=== PATIENT | male | born 1965 | race Caucasian/White ===

== ENCOUNTER 2018-01-10 19:05 | Inpatient (IN) | payer MEDICARE, MEDICAID ==
[2018-01-10] MEDS: ONDANSETRON 4MG/2ML VIAL (J2405) IV (20:10)
[2018-01-10] MEDS: MORPHINE 4 MG/ML 1ML VIAL (J2270) IV (20:10)
[2018-01-10] MEDS: NS 1,000 ML IV ×2 (20:10→22:36)
[2018-01-10 21:00] LABS: BASO # 0.1 10^3/uL (0.0-0.2); BASO % 0.3 % (0.0-1.0); EOS # 0.1 10^3/uL (0.0-0.50); EOS % 0.5 % (0.0-3.0); HEMATOCRIT 28.8 % (42.0-52.0); HEMOGLOBIN 9.3 g/dl (14.0-18.0); IMMATURE GRANULOCYTE % 4.4 % (0-3.0); LYMPH # 1.2 10^3/uL (1.5-4.5); LYMPH % 5.7 % (24.0-44.0); MEAN CORPUSCULAR HGB CONC 32.3 g/dl (32.0-36.5); MEAN CORPUSCULAR VOLUME 86.7 fl (80.0-96.0); MONO # 1.4 10^3/uL (0.0-0.8); MONO % 6.7 % (0.0-5.0); NEUTROPHILS # 17.5 10^3/uL (1.8-7.7); NEUTROPHILS % 82.4 % (36.0-66.0); PLATELET COUNT, AUTOMATED 518 10^3/uL (150-450); RED BLOOD COUNT 3.32 10^6/uL (4.30-6.10); RED CELL DISTRIBUTION WIDTH 13.6 % (11.5-14.5); WHITE BLOOD COUNT 21.2 10^3/uL (4.0-10.0)
[2018-01-10 21:23] LABS: LACTIC ACID SEPSIS PROTOCOL 1.9 MMOL/L (0.4-2.0)
[2018-01-10 21:24] LABS: ALBUMIN/GLOBULIN RATIO 0.34 (1.00-1.93); ALKALINE PHOSPHATASE 132 U/L (45-117); ALT/SGPT 12 U/L (12-78); ANION GAP 12 MEQ/L (8-16); AST/SGOT 12 U/L (7-37); BILIRUBIN,DIRECT 0.4 MG/DL (0.0-0.2); BILIRUBIN,TOTAL 0.8 MG/DL (0.2-1.0); BLOOD UREA NITROGEN 47 MG/DL (7-18); CARBON DIOXIDE LEVEL 20 MEQ/L (21-32); CHLORIDE LEVEL 106 MEQ/L (98-107); GLOMERULAR FILTRATION RATE 24.6 (>56); GLUCOSE, FASTING 339 MG/DL (70-100); SODIUM LEVEL 138 MEQ/L (136-145); TOTAL PROTEIN 7.8 GM/DL (6.4-8.2)
[2018-01-10 21:37] LABS: POTASSIUM SERUM 5.2 MEQ/L (3.5-5.1)
[2018-01-10] MEDS: CEFTAROLINE FOSAMIL 300 MG in D5W 50 ML IV (22:37)
[2018-01-10] MEDS ORDERED: GLUCAGON FOR INJ 1 MG VIAL (J1610) SC (22:45)
[2018-01-10] MEDS ORDERED: GLUCOSE 4 GM CHEW TABLET PO (22:45)
[2018-01-10] MEDS ORDERED: ALBUTEROL SULFATE 2.5 MG/0.5 ML INH NEB SOLN NEB (23:15)
[2018-01-10] MEDS ORDERED: EUCERIN 120GM CREAM TOP (23:15)
[2018-01-11 01:26] LABS: BEDSIDE GLUCOSE 240 MG/DL (70-105)
[2018-01-11] MEDS: HumaLOG INSULIN (NovoLOG) PER UNIT SC ×5 (01:33→21:00)
[2018-01-11] MEDS: HEPARIN SOD (PORCINE) 5000 UNITS/ML VIAL SC ×4 (02:17→21:55)
[2018-01-11] MEDS: LEVEMIR (INSULIN DETEMIR) 1 UNITS/0.01ML SC ×3 (02:17→21:54)
[2018-01-11] MEDS: SOD POLYSTYRENE SULFONATE SUSP 15 GM/60 ML UD PO ×2 (03:21→20:12)
[2018-01-11] MEDS: FERROUS SULFATE 325MG TAB PO ×3 (03:49→21:54)
[2018-01-11] MEDS: cloNIDine 0.1 MG TAB PO ×4 (03:50→21:55)
[2018-01-11] MEDS: ADVAIR HFA 230/21MCG INHALER INH ×3 (03:50→21:22)
[2018-01-11] MEDS: PIPERACILLIN/TAZOBACTAM SOD 3.375 GM in APPROPRIATE DILUENT 1 EA IV ×3 (04:44→20:12)
[2018-01-11] MEDS: VANCOMYCIN HCL 1,000 MG, VIAL MATE ADAPTER 1 EACH in D5W 250 ML IV ×3 (05:29→18:20)
[2018-01-11 06:37] LABS: BASO % 0.3 % (0.0-1.0); EOS # 0.2 10^3/uL (0.0-0.50); EOS % 1.6 % (0.0-3.0); HEMATOCRIT 24.3 % (42.0-52.0); HEMOGLOBIN 7.8 g/dl (14.0-18.0); IMMATURE GRANULOCYTE % 4.1 % (0-3.0); LYMPH # 2.2 10^3/uL (1.5-4.5); LYMPH % 18.4 % (24.0-44.0); MEAN CORPUSCULAR HEMOGLOBIN 27.5 pg (27.0-33.0); MEAN CORPUSCULAR HGB CONC 32.1 g/dl (32.0-36.5); MEAN CORPUSCULAR VOLUME 85.6 fl (80.0-96.0); MONO # 1.1 10^3/uL (0.0-0.8); MONO % 8.9 % (0.0-5.0); NEUTROPHILS # 7.9 10^3/uL (1.8-7.7); NEUTROPHILS % 66.7 % (36.0-66.0); PLATELET COUNT, AUTOMATED 431 10^3/uL (150-450); RED BLOOD COUNT 2.84 10^6/uL (4.30-6.10); RED CELL DISTRIBUTION WIDTH 13.9 % (11.5-14.5); WHITE BLOOD COUNT 11.9 10^3/uL (4.0-10.0)
[2018-01-11 07:00] LABS: ALKALINE PHOSPHATASE 95 U/L (45-117); ALT/SGPT 11 U/L (12-78); ANION GAP 9 MEQ/L (8-16); AST/SGOT 6 U/L (7-37); BILIRUBIN,TOTAL 0.5 MG/DL (0.2-1.0); BLOOD UREA NITROGEN 50 MG/DL (7-18); CALCIUM LEVEL 7.7 MG/DL (8.5-10.1); CARBON DIOXIDE LEVEL 21 MEQ/L (21-32); CHLORIDE LEVEL 109 MEQ/L (98-107); GLOMERULAR FILTRATION RATE 19.8 (>56); GLUCOSE, FASTING 165 MG/DL (70-100); POTASSIUM SERUM 4.8 MEQ/L (3.5-5.1); SODIUM LEVEL 139 MEQ/L (136-145)
[2018-01-11 07:01] LABS: ALBUMIN 1.6 GM/DL (3.2-5.2); ALBUMIN/GLOBULIN RATIO 0.29 (1.00-1.93); TOTAL PROTEIN 7.2 GM/DL (6.4-8.2)
[2018-01-11] MEDS: ASCORBIC ACID 500 MG TAB PO (10:26)
[2018-01-11] MEDS: FOLIC ACID 1 MG TAB PO (10:26)
[2018-01-11] MEDS: ONDANSETRON 4MG/2ML VIAL (J2405) IV (12:58)
[2018-01-11] MEDS: MORPHINE 4 MG/ML 1ML VIAL (J2270) IV ×2 (12:58→22:07)
[2018-01-11] MEDS: NS 1,000 ML IV ×2 (14:44→21:56)
[2018-01-11 16:30] LABS: BEDSIDE GLUCOSE 124 MG/DL (70-105)
[2018-01-11] MEDS: DEXTROSE 50% 50 ML SYRINGE IV (17:18)
[2018-01-11 18:44] LABS: ANION GAP 9 MEQ/L (8-16); BLOOD UREA NITROGEN 52 MG/DL (7-18); CALCIUM LEVEL 7.7 MG/DL (8.5-10.1); CARBON DIOXIDE LEVEL 23 MEQ/L (21-32); CHLORIDE LEVEL 111 MEQ/L (98-107); CREATININE FOR GFR 3.83 MG/DL (0.70-1.30); GLOMERULAR FILTRATION RATE 17.9 (>56); GLUCOSE, FASTING 86 MG/DL (70-100); SODIUM LEVEL 143 MEQ/L (136-145)
[2018-01-11 18:46] LABS: POTASSIUM SERUM 5.2 MEQ/L (3.5-5.1)
[2018-01-11 20:22] LABS: BEDSIDE GLUCOSE 84 MG/DL (70-105)
[2018-01-11 20:22] LABS: BEDSIDE GLUCOSE 69 MG/DL (70-105)
[2018-01-11] MEDS: D5W/0.45% SODIUM CHLORIDE 1,000 ML IV (20:32)
[2018-01-11 21:08] LABS: HEMOGLOBIN 8.3 g/dl (14.0-18.0); MEAN CORPUSCULAR HEMOGLOBIN 27.1 pg (27.0-33.0); MEAN CORPUSCULAR HGB CONC 30.7 g/dl (32.0-36.5); MEAN CORPUSCULAR VOLUME 88.2 fl (80.0-96.0); PLATELET COUNT, AUTOMATED 439 10^3/uL (150-450); RED BLOOD COUNT 3.06 10^6/uL (4.30-6.10); RED CELL DISTRIBUTION WIDTH 14.2 % (11.5-14.5); WHITE BLOOD COUNT 8.8 10^3/uL (4.0-10.0)
[2018-01-11 21:29] LABS: LACTIC ACID SEPSIS PROTOCOL 0.9 MMOL/L (0.4-2.0)
[2018-01-11 21:30] LABS: CPK CREATINE PHOSPHOKINASE 18 U/L (39-308); MB/CK RELATIVE INDEX 5.55 (< OR =4); TROPONIN I < 0.02 NG/ML (< 0.10)
[2018-01-11 22:04] LABS: BEDSIDE GLUCOSE 100 MG/DL (70-105)
[2018-01-12] MEDS: MORPHINE 4 MG/ML 1ML VIAL (J2270) IV ×5 (00:25→21:09)
[2018-01-12] MEDS: PIPERACILLIN/TAZOBACTAM SOD 3.375 GM in APPROPRIATE DILUENT 1 EA IV ×2 (03:00→12:00)
[2018-01-12 03:29] LABS: GLUCOSE, FASTING 103 MG/DL (70-100)
[2018-01-12] MEDS: cloNIDine 0.1 MG TAB PO ×3 (05:34→20:58)
[2018-01-12] MEDS: VANCOMYCIN HCL 1,000 MG, VIAL MATE ADAPTER 1 EACH in D5W 250 ML IV (05:34)
[2018-01-12 06:19] LABS: BASO % 0.2 % (0.0-1.0); EOS # 0.3 10^3/uL (0.0-0.50); EOS % 3.5 % (0.0-3.0); HEMATOCRIT 25.5 % (42.0-52.0); IMMATURE GRANULOCYTE % 3.7 % (0-3.0); LYMPH # 1.2 10^3/uL (1.5-4.5); LYMPH % 13.9 % (24.0-44.0); MEAN CORPUSCULAR HEMOGLOBIN 27.4 pg (27.0-33.0); MEAN CORPUSCULAR HGB CONC 31.4 g/dl (32.0-36.5); MEAN CORPUSCULAR VOLUME 87.3 fl (80.0-96.0); MONO # 0.7 10^3/uL (0.0-0.8); MONO % 7.8 % (0.0-5.0); NEUTROPHILS # 6.1 10^3/uL (1.8-7.7); NEUTROPHILS % 70.9 % (36.0-66.0); PLATELET COUNT, AUTOMATED 413 10^3/uL (150-450); RED BLOOD COUNT 2.92 10^6/uL (4.30-6.10); RED CELL DISTRIBUTION WIDTH 14.2 % (11.5-14.5); WHITE BLOOD COUNT 8.6 10^3/uL (4.0-10.0)
[2018-01-12 06:47] LABS: ALBUMIN 1.7 GM/DL (3.2-5.2); ALBUMIN/GLOBULIN RATIO 0.35 (1.00-1.93); ALKALINE PHOSPHATASE 92 U/L (45-117); ALT/SGPT 9 U/L (12-78); ANION GAP 9 MEQ/L (8-16); AST/SGOT 8 U/L (7-37); BILIRUBIN,TOTAL 0.4 MG/DL (0.2-1.0); BLOOD UREA NITROGEN 49 MG/DL (7-18); CALCIUM LEVEL 7.5 MG/DL (8.5-10.1); CARBON DIOXIDE LEVEL 21 MEQ/L (21-32); CHLORIDE LEVEL 113 MEQ/L (98-107); CREATININE FOR GFR 4.08 MG/DL (0.70-1.30); GLOMERULAR FILTRATION RATE 16.6 (>56); GLUCOSE, FASTING 75 MG/DL (70-100); MAGNESIUM LEVEL 1.9 MG/DL (1.8-2.4); POTASSIUM SERUM 4.4 MEQ/L (3.5-5.1); SODIUM LEVEL 143 MEQ/L (136-145); TOTAL PROTEIN 6.6 GM/DL (6.4-8.2)
[2018-01-12] MEDS: ADVAIR HFA 230/21MCG INHALER INH ×2 (07:21→21:24)
[2018-01-12] MEDS: HumaLOG INSULIN (NovoLOG) PER UNIT SC ×4 (07:30→20:57)
[2018-01-12] MEDS: NS 1,000 ML IV (08:13)
[2018-01-12] MEDS: ASCORBIC ACID 500 MG TAB PO (09:00)
[2018-01-12] MEDS: FOLIC ACID 1 MG TAB PO (09:00)
[2018-01-12] MEDS: FERROUS SULFATE 325MG TAB PO ×2 (09:00→21:07)
[2018-01-12] MEDS: LEVEMIR (INSULIN DETEMIR) 1 UNITS/0.01ML SC ×2 (11:12→21:08)
[2018-01-12] MEDS ORDERED: PROPOFOL 200 MG/20 ML VIAL As Ordered ×2 (11:47→12:26)
[2018-01-12] MEDS ORDERED: MIDAZOLAM INJ 2 MG/2 ML VIAL (J2250) As Ordered (11:47)
[2018-01-12] MEDS ORDERED: LIDOCAINE 2% INJ 100 MG/5 ML SDV (FOR ANES.) As Ordered (11:47)
[2018-01-12] MEDS ORDERED: PHENYLephrine HCL 500 MCG/5 ML (100MCG/ML) SYRINGE (J2370) As Ordered ×2 (11:47→12:22)
[2018-01-12] MEDS ORDERED: fentaNYL 100 MCG/2 ML INJECTION (J3010) As Ordered (11:47)
[2018-01-12] MEDS: LR 1,000 ML IV (14:00)
[2018-01-12] MEDS ORDERED: fentaNYL 100 MCG/2 ML INJECTION (J3010) IV (14:00)
[2018-01-12] MEDS ORDERED: ONDANSETRON 4MG/2ML VIAL (J2405) IV (14:00)
[2018-01-12] MEDS ORDERED: PERCOCET 5MG/325MG TAB PO (14:00)
[2018-01-12] MEDS ORDERED: HYDROmorphone HCL 1 MG/ML SYRINGE (J1170) IV (14:00)
[2018-01-12 14:16] LABS: BEDSIDE GLUCOSE 87 MG/DL (70-105)
[2018-01-12] MEDS: ONDANSETRON 4MG/2ML VIAL (J2405) IV (15:20)
[2018-01-12 17:58] LABS: VANCOMYCIN LEVEL TROUGH 37.8 UG/ML (10.0-20.0)
[2018-01-12] MEDS ORDERED: VANCOMYCIN INTERMITTENT/PULSE DOSING BY CLINICAL PHARMACIST PER DOSING PROTOCOL XX (18:15)
[2018-01-12 18:42] LABS: IMMEDIATE SPIN CROSSMATCH 1 2
[2018-01-12] MEDS: PERCOCET 5MG/325MG TAB PO (18:42)
[2018-01-12] MEDS ORDERED: PIPERACILLIN/TAZOBACTAM SOD 2.25 GM in APPROPRIATE DILUENT 1 EA IV (20:00)
[2018-01-12] MEDS: DOCUSATE SODIUM 100 MG CAP PO (21:07)
[2018-01-12 21:14] LABS: BEDSIDE GLUCOSE 124 MG/DL (70-105)
[2018-01-12 21:14] LABS: BEDSIDE GLUCOSE 174 MG/DL (70-105)
[2018-01-12 21:14] LABS: BEDSIDE GLUCOSE 148 MG/DL (70-105)
[2018-01-12 21:15] LABS: BEDSIDE GLUCOSE 175 MG/DL (70-105)
[2018-01-13] MEDS: PIPERACILLIN/TAZOBACTAM SOD 2.25 GM in APPROPRIATE DILUENT 1 EA IV ×3 (04:00→20:06)
[2018-01-13] MEDS: MORPHINE 4 MG/ML 1ML VIAL (J2270) IV (04:11)
[2018-01-13] MEDS: cloNIDine 0.1 MG TAB PO ×3 (05:38→21:21)
[2018-01-13 06:16] LABS: BASO % 0.2 % (0.0-1.0); EOS # 0.3 10^3/uL (0.0-0.50); EOS % 2.9 % (0.0-3.0); HEMATOCRIT 25.2 % (42.0-52.0); IMMATURE GRANULOCYTE % 3.8 % (0-3.0); LYMPH # 1.6 10^3/uL (1.5-4.5); LYMPH % 16.3 % (24.0-44.0); MEAN CORPUSCULAR HEMOGLOBIN 27.6 pg (27.0-33.0); MEAN CORPUSCULAR HGB CONC 31.7 g/dl (32.0-36.5); MEAN CORPUSCULAR VOLUME 86.9 fl (80.0-96.0); MONO # 0.9 10^3/uL (0.0-0.8); MONO % 9.1 % (0.0-5.0); NEUTROPHILS # 6.5 10^3/uL (1.8-7.7); NEUTROPHILS % 67.7 % (36.0-66.0); PLATELET COUNT, AUTOMATED 370 10^3/uL (150-450); RED CELL DISTRIBUTION WIDTH 13.9 % (11.5-14.5); WHITE BLOOD COUNT 9.7 10^3/uL (4.0-10.0)
[2018-01-13 06:44] LABS: ALBUMIN 1.7 GM/DL (3.2-5.2); ALBUMIN/GLOBULIN RATIO 0.34 (1.00-1.93); ALKALINE PHOSPHATASE 78 U/L (45-117); ALT/SGPT 9 U/L (12-78); ANION GAP 9 MEQ/L (8-16); AST/SGOT 5 U/L (7-37); BILIRUBIN,TOTAL 0.7 MG/DL (0.2-1.0); BLOOD UREA NITROGEN 44 MG/DL (7-18); CALCIUM LEVEL 7.8 MG/DL (8.5-10.1); CARBON DIOXIDE LEVEL 22 MEQ/L (21-32); CHLORIDE LEVEL 115 MEQ/L (98-107); CREATININE FOR GFR 4.08 MG/DL (0.70-1.30); GLOMERULAR FILTRATION RATE 16.6 (>56); GLUCOSE, FASTING 165 MG/DL (70-100); MAGNESIUM LEVEL 1.9 MG/DL (1.8-2.4); POTASSIUM SERUM 4.9 MEQ/L (3.5-5.1); SODIUM LEVEL 146 MEQ/L (136-145); TOTAL PROTEIN 6.7 GM/DL (6.4-8.2)
[2018-01-13] MEDS: ADVAIR HFA 230/21MCG INHALER INH ×2 (07:36→22:00)
[2018-01-13] MEDS: LEVEMIR (INSULIN DETEMIR) 1 UNITS/0.01ML SC ×2 (08:28→20:06)
[2018-01-13] MEDS: HumaLOG INSULIN (NovoLOG) PER UNIT SC ×4 (08:28→21:00)
[2018-01-13] MEDS: FOLIC ACID 1 MG TAB PO (08:29)
[2018-01-13] MEDS: PERCOCET 5MG/325MG TAB PO ×3 (08:29→22:15)
[2018-01-13] MEDS: FERROUS SULFATE 325MG TAB PO ×2 (08:29→20:06)
[2018-01-13] MEDS: ASCORBIC ACID 500 MG TAB PO (08:29)
[2018-01-13] MEDS: DOCUSATE SODIUM 100 MG CAP PO ×2 (08:29→20:06)
[2018-01-13] MEDS: SODIUM CHLORIDE 0.9% INJ 10 ML SYR IV ×3 (17:04→21:22)
[2018-01-13 18:53] LABS: VANCOMYCIN LEVEL TROUGH 29.1 UG/ML (10.0-20.0)
[2018-01-14] MEDS: PIPERACILLIN/TAZOBACTAM SOD 2.25 GM in APPROPRIATE DILUENT 1 EA IV ×3 (04:17→21:35)
[2018-01-14 04:29] LABS: BASO % 0.4 % (0.0-1.0); EOS # 0.2 10^3/uL (0.0-0.50); EOS % 2.6 % (0.0-3.0); HEMATOCRIT 23.5 % (42.0-52.0); HEMOGLOBIN 7.6 g/dl (14.0-18.0); IMMATURE GRANULOCYTE % 4.4 % (0-3.0); LYMPH # 1.7 10^3/uL (1.5-4.5); LYMPH % 20.3 % (24.0-44.0); MEAN CORPUSCULAR HEMOGLOBIN 28.7 pg (27.0-33.0); MEAN CORPUSCULAR HGB CONC 32.3 g/dl (32.0-36.5); MEAN CORPUSCULAR VOLUME 88.7 fl (80.0-96.0); MONO # 0.7 10^3/uL (0.0-0.8); MONO % 8.6 % (0.0-5.0); NEUTROPHILS # 5.4 10^3/uL (1.8-7.7); NEUTROPHILS % 63.7 % (36.0-66.0); PLATELET COUNT, AUTOMATED 289 10^3/uL (150-450); RED BLOOD COUNT 2.65 10^6/uL (4.30-6.10); RED CELL DISTRIBUTION WIDTH 14.2 % (11.5-14.5); WHITE BLOOD COUNT 8.5 10^3/uL (4.0-10.0)
[2018-01-14 05:04] LABS: ALBUMIN 1.8 GM/DL (3.2-5.2); ALBUMIN/GLOBULIN RATIO 0.39 (1.00-1.93); ALKALINE PHOSPHATASE 80 U/L (45-117); ALT/SGPT 8 U/L (12-78); ANION GAP 6 MEQ/L (8-16); AST/SGOT 5 U/L (7-37); BILIRUBIN,TOTAL 0.4 MG/DL (0.2-1.0); BLOOD UREA NITROGEN 43 MG/DL (7-18); CALCIUM LEVEL 7.4 MG/DL (8.5-10.1); CARBON DIOXIDE LEVEL 24 MEQ/L (21-32); CHLORIDE LEVEL 111 MEQ/L (98-107); FERRITIN 436 NG/ML (26-388); GLUCOSE, FASTING 227 MG/DL (70-100); IRON (FE) 43 UG/DL (65-175); MAGNESIUM LEVEL 1.8 MG/DL (1.8-2.4); PERCENT SATURATION 31.9 % (19.7-50.0); POTASSIUM SERUM 4.6 MEQ/L (3.5-5.1); SODIUM LEVEL 141 MEQ/L (136-145); TOTAL IRON BINDING CAPACITY 135 UG/DL (250-450); TOTAL PROTEIN 6.4 GM/DL (6.4-8.2)
[2018-01-14] MEDS: SODIUM CHLORIDE 0.9% INJ 10 ML SYR IV ×4 (05:24→22:50)
[2018-01-14] MEDS: FERROUS SULFATE 325MG TAB PO ×2 (05:38→21:38)
[2018-01-14] MEDS: ASCORBIC ACID 500 MG TAB PO (05:38)
[2018-01-14] MEDS: DOCUSATE SODIUM 100 MG CAP PO ×2 (05:41→21:38)
[2018-01-14] MEDS: cloNIDine 0.1 MG TAB PO ×3 (05:41→21:38)
[2018-01-14] MEDS: FOLIC ACID 1 MG TAB PO (05:41)
[2018-01-14] MEDS: PERCOCET 5MG/325MG TAB PO ×2 (06:37→21:36)
[2018-01-14] MEDS: ADVAIR HFA 230/21MCG INHALER INH ×2 (07:28→22:20)
[2018-01-14] MEDS: LEVEMIR (INSULIN DETEMIR) 1 UNITS/0.01ML SC ×2 (07:31→21:51)
[2018-01-14] MEDS: HumaLOG INSULIN (NovoLOG) PER UNIT SC ×4 (07:32→21:00)
[2018-01-14 09:07] LABS: BEDSIDE GLUCOSE 124 MG/DL (70-105)
[2018-01-14 09:07] LABS: BEDSIDE GLUCOSE 215 MG/DL (70-105)
[2018-01-14 09:07] LABS: BEDSIDE GLUCOSE 181 MG/DL (70-105)
[2018-01-14 12:42] LABS: BEDSIDE GLUCOSE 212 MG/DL (70-105)
[2018-01-14] MEDS ORDERED: MIDAZOLAM INJ 2 MG/2 ML VIAL (J2250) As Ordered (17:05)
[2018-01-14] MEDS ORDERED: fentaNYL 100 MCG/2 ML INJECTION (J3010) As Ordered (17:05)
[2018-01-14 17:30] LABS: BEDSIDE GLUCOSE 207 MG/DL (70-105)
[2018-01-14] MEDS ORDERED: PROPOFOL 200 MG/20 ML VIAL As Ordered ×2 (18:30)
[2018-01-14 20:04] LABS: BEDSIDE GLUCOSE 172 MG/DL (70-105)
[2018-01-14] MEDS ORDERED: fentaNYL 100 MCG/2 ML INJECTION (J3010) IV (20:15)
[2018-01-14] MEDS ORDERED: METOCLOPRAMIDE INJ 10MG/2ML VIAL (J2765) IV (20:15)
[2018-01-14] MEDS ORDERED: MEPERIDINE INJ 25 MG/ML VIAL (J2175) IV (20:15)
[2018-01-14] MEDS: LR 1,000 ML IV (20:15)
[2018-01-14] MEDS ORDERED: ONDANSETRON 4MG/2ML VIAL (J2405) IV (20:15)
[2018-01-14] MEDS ORDERED: PERCOCET 5MG/325MG TAB PO (20:15)
[2018-01-15] MEDS: PERCOCET 5MG/325MG TAB PO ×4 (04:40→22:40)
[2018-01-15] MEDS: PIPERACILLIN/TAZOBACTAM SOD 2.25 GM in APPROPRIATE DILUENT 1 EA IV ×3 (04:41→21:39)
[2018-01-15 05:00] LABS: BASO % 0.2 % (0.0-1.0); EOS # 0.3 10^3/uL (0.0-0.50); EOS % 2.8 % (0.0-3.0); HEMATOCRIT 24.4 % (42.0-52.0); HEMOGLOBIN 7.9 g/dl (14.0-18.0); IMMATURE GRANULOCYTE % 4.8 % (0-3.0); LYMPH # 1.8 10^3/uL (1.5-4.5); MEAN CORPUSCULAR HEMOGLOBIN 28.2 pg (27.0-33.0); MEAN CORPUSCULAR HGB CONC 32.4 g/dl (32.0-36.5); MEAN CORPUSCULAR VOLUME 87.1 fl (80.0-96.0); MONO # 0.6 10^3/uL (0.0-0.8); MONO % 6.1 % (0.0-5.0); NEUTROPHILS # 6.5 10^3/uL (1.8-7.7); NEUTROPHILS % 67.1 % (36.0-66.0); PLATELET COUNT, AUTOMATED 341 10^3/uL (150-450); RED CELL DISTRIBUTION WIDTH 14.1 % (11.5-14.5); WHITE BLOOD COUNT 9.7 10^3/uL (4.0-10.0)
[2018-01-15 05:29] LABS: ALBUMIN 1.9 GM/DL (3.2-5.2); ALBUMIN/GLOBULIN RATIO 0.42 (1.00-1.93); ALKALINE PHOSPHATASE 106 U/L (45-117); ALT/SGPT 10 U/L (12-78); ANION GAP 6 MEQ/L (8-16); AST/SGOT 7 U/L (7-37); BILIRUBIN,TOTAL 0.4 MG/DL (0.2-1.0); BLOOD UREA NITROGEN 42 MG/DL (7-18); C REACTIVE PROTEIN QUANTITATIV 8.26 MG/DL (0.00-0.30); CALCIUM LEVEL 7.8 MG/DL (8.5-10.1); CARBON DIOXIDE LEVEL 23 MEQ/L (21-32); CHLORIDE LEVEL 113 MEQ/L (98-107); CREATININE FOR GFR 3.46 MG/DL (0.70-1.30); GLOMERULAR FILTRATION RATE 20.1 (>56); GLUCOSE, FASTING 248 MG/DL (70-100); POTASSIUM SERUM 4.7 MEQ/L (3.5-5.1); SODIUM LEVEL 142 MEQ/L (136-145); TOTAL PROTEIN 6.4 GM/DL (6.4-8.2)
[2018-01-15] MEDS: cloNIDine 0.1 MG TAB PO ×3 (05:44→21:39)
[2018-01-15] MEDS: SODIUM CHLORIDE 0.9% INJ 10 ML SYR IV ×2 (05:45→18:10)
[2018-01-15] MEDS: ADVAIR HFA 230/21MCG INHALER INH ×2 (07:18→20:23)
[2018-01-15] MEDS: FERROUS SULFATE 325MG TAB PO ×2 (10:16→21:39)
[2018-01-15] MEDS: DOCUSATE SODIUM 100 MG CAP PO ×2 (10:16→21:39)
[2018-01-15] MEDS: FOLIC ACID 1 MG TAB PO (10:16)
[2018-01-15] MEDS: ASCORBIC ACID 500 MG TAB PO (10:16)
[2018-01-15] MEDS: LEVEMIR (INSULIN DETEMIR) 1 UNITS/0.01ML SC ×2 (10:17→21:40)
[2018-01-15] MEDS: HumaLOG INSULIN (NovoLOG) PER UNIT SC ×4 (10:17→21:00)
[2018-01-15] MEDS: MORPHINE 4 MG/ML 1ML VIAL (J2270) IV (10:29)
[2018-01-15 11:52] LABS: BEDSIDE GLUCOSE 299 MG/DL (70-105)
[2018-01-15 17:11] LABS: BEDSIDE GLUCOSE 257 MG/DL (70-105)
[2018-01-15 20:30] LABS: VANCOMYCIN RANDOM 13.9 UG/ML
[2018-01-15] MEDS: VANCOMYCIN HCL 1,000 MG, VIAL MATE ADAPTER 1 EACH in D5W 250 ML IV (22:41)
[2018-01-16 00:19] LABS: BEDSIDE GLUCOSE 188 MG/DL (70-105)
[2018-01-16] MEDS: PIPERACILLIN/TAZOBACTAM SOD 2.25 GM in APPROPRIATE DILUENT 1 EA IV ×3 (05:24→20:04)
[2018-01-16] MEDS: SODIUM CHLORIDE 0.9% INJ 10 ML SYR IV ×3 (05:24→18:00)
[2018-01-16] MEDS: cloNIDine 0.1 MG TAB PO ×3 (05:25→21:58)
[2018-01-16] MEDS: PERCOCET 5MG/325MG TAB PO ×3 (05:26→20:04)
[2018-01-16 05:37] LABS: HEMATOCRIT 23.3 % (42.0-52.0); HEMOGLOBIN 7.5 g/dl (14.0-18.0); MEAN CORPUSCULAR HEMOGLOBIN 28.5 pg (27.0-33.0); MEAN CORPUSCULAR HGB CONC 32.2 g/dl (32.0-36.5); MEAN CORPUSCULAR VOLUME 88.6 fl (80.0-96.0); PLATELET COUNT, AUTOMATED 311 10^3/uL (150-450); RED BLOOD COUNT 2.63 10^6/uL (4.30-6.10); RED CELL DISTRIBUTION WIDTH 14.1 % (11.5-14.5); WHITE BLOOD COUNT 10.2 10^3/uL (4.0-10.0)
[2018-01-16 05:40] LABS: ADD MANUAL DIFFER YES; DIFF SLIDE NUMBER 19; POS COUNT POS FLAG; POSITIVE MORPH POS FLAG
[2018-01-16 06:07] LABS: ALKALINE PHOSPHATASE 133 U/L (45-117); ALT/SGPT 19 U/L (12-78); ANION GAP 9 MEQ/L (8-16); AST/SGOT 15 U/L (7-37); BLOOD UREA NITROGEN 46 MG/DL (7-18); CALCIUM LEVEL 7.8 MG/DL (8.5-10.1); CARBON DIOXIDE LEVEL 21 MEQ/L (21-32); CHLORIDE LEVEL 113 MEQ/L (98-107); CREATININE FOR GFR 3.44 MG/DL (0.70-1.30); GLOMERULAR FILTRATION RATE 20.2 (>56); GLUCOSE, FASTING 201 MG/DL (70-100); SODIUM LEVEL 143 MEQ/L (136-145)
[2018-01-16 06:08] LABS: ALBUMIN/GLOBULIN RATIO 0.43 (1.00-1.93); BILIRUBIN,TOTAL 0.3 MG/DL (0.2-1.0); POTASSIUM SERUM 5.2 MEQ/L (3.5-5.1); TOTAL PROTEIN 6.6 GM/DL (6.4-8.2)
[2018-01-16 06:17] LABS: EOSINOPHILS 2 % (0-5); LYMPHOCYTES 19 % (16-52); METAMYELOCYTES 2 % (0-0); MONOCYTES 2 % (0-8); MYELOCYTES 5 % (0-0); NEUTROPHILS 70 % (35-75)
[2018-01-16 06:18] LABS: PLATELET ESTIMATE NORMAL (NORMAL)
[2018-01-16] MEDS: ADVAIR HFA 230/21MCG INHALER INH ×2 (07:12→20:40)
[2018-01-16] MEDS: HumaLOG INSULIN (NovoLOG) PER UNIT SC ×4 (08:17→21:58)
[2018-01-16] MEDS: FOLIC ACID 1 MG TAB PO (10:58)
[2018-01-16] MEDS: ASCORBIC ACID 500 MG TAB PO (10:58)
[2018-01-16] MEDS: FUROSEMIDE 40 MG TAB PO (10:59)
[2018-01-16] MEDS: DOCUSATE SODIUM 100 MG CAP PO ×2 (10:59→20:04)
[2018-01-16] MEDS: LEVEMIR (INSULIN DETEMIR) 1 UNITS/0.01ML SC ×2 (11:00→20:05)
[2018-01-16] MEDS: FERROUS SULFATE 325MG TAB PO ×2 (11:00→20:04)
[2018-01-16] MEDS: DARBEPOETIN 100 MCG/0.5 ML *NON-DIALYSIS* SYRINGE (J0881) SC (13:22)
[2018-01-16] MEDS: SILVER SULFADIAZINE 1% CR 50 GM JAR TOP (17:49)
[2018-01-16 21:18] LABS: BEDSIDE GLUCOSE 277 MG/DL (70-105)
[2018-01-17 02:10] LABS: BEDSIDE GLUCOSE 298 MG/DL (70-105)
[2018-01-17 02:10] LABS: BEDSIDE GLUCOSE 226 MG/DL (70-105)
[2018-01-17 02:10] LABS: BEDSIDE GLUCOSE 261 MG/DL (70-105)
[2018-01-17] MEDS: PERCOCET 5MG/325MG TAB PO ×4 (04:52→22:33)
[2018-01-17] MEDS: cloNIDine 0.1 MG TAB PO ×3 (04:53→22:26)
[2018-01-17] MEDS: SODIUM CHLORIDE 0.9% INJ 10 ML SYR IV ×2 (04:53→17:40)
[2018-01-17] MEDS: PIPERACILLIN/TAZOBACTAM SOD 2.25 GM in APPROPRIATE DILUENT 1 EA IV ×3 (04:54→22:22)
[2018-01-17 06:34] LABS: HEMATOCRIT 24.2 % (42.0-52.0); HEMOGLOBIN 7.9 g/dl (14.0-18.0); MEAN CORPUSCULAR HEMOGLOBIN 28.5 pg (27.0-33.0); MEAN CORPUSCULAR HGB CONC 32.6 g/dl (32.0-36.5); MEAN CORPUSCULAR VOLUME 87.4 fl (80.0-96.0); PLATELET COUNT, AUTOMATED 400 10^3/uL (150-450); RED BLOOD COUNT 2.77 10^6/uL (4.30-6.10); RED CELL DISTRIBUTION WIDTH 14.1 % (11.5-14.5); WHITE BLOOD COUNT 11.1 10^3/uL (4.0-10.0)
[2018-01-17 06:47] LABS: ADD MANUAL DIFFER YES; DIFF SLIDE NUMBER 12; POS COUNT POS FLAG; POSITIVE MORPH POS FLAG
[2018-01-17 06:52] LABS: ALBUMIN/GLOBULIN RATIO 0.44 (1.00-1.93); ALKALINE PHOSPHATASE 144 U/L (45-117); ALT/SGPT 24 U/L (12-78); ANION GAP 8 MEQ/L (8-16); AST/SGOT 19 U/L (7-37); BILIRUBIN,TOTAL 0.3 MG/DL (0.2-1.0); BLOOD UREA NITROGEN 52 MG/DL (7-18); CALCIUM LEVEL 8.4 MG/DL (8.5-10.1); CARBON DIOXIDE LEVEL 23 MEQ/L (21-32); CHLORIDE LEVEL 110 MEQ/L (98-107); CREATININE FOR GFR 3.32 MG/DL (0.70-1.30); GLOMERULAR FILTRATION RATE 21.1 (>56); GLUCOSE, FASTING 222 MG/DL (70-100); MAGNESIUM LEVEL 1.7 MG/DL (1.8-2.4); SODIUM LEVEL 141 MEQ/L (136-145); TOTAL PROTEIN 6.5 GM/DL (6.4-8.2)
[2018-01-17 06:55] LABS: POTASSIUM SERUM 5.4 MEQ/L (3.5-5.1)
[2018-01-17] MEDS: ADVAIR HFA 230/21MCG INHALER INH ×2 (07:33→19:55)
[2018-01-17] MEDS: HumaLOG INSULIN (NovoLOG) PER UNIT SC ×4 (07:57→22:14)
[2018-01-17] MEDS: SOD POLYSTYRENE SULFONATE SUSP 15 GM/60 ML UD PO (07:58)
[2018-01-17 08:06] LABS: EOSINOPHILS 6 % (0-5); LYMPHOCYTES 21 % (16-52); MONOCYTES 5 % (0-8); MYELOCYTES 2 % (0-0); NEUTROPHILS 66 % (35-75); PLATELET ESTIMATE NORMAL (NORMAL)
[2018-01-17] MEDS: DOCUSATE SODIUM 100 MG CAP PO ×2 (10:57→22:22)
[2018-01-17] MEDS: ASCORBIC ACID 500 MG TAB PO (10:57)
[2018-01-17] MEDS: FERROUS SULFATE 325MG TAB PO ×2 (10:58→22:22)
[2018-01-17] MEDS: FUROSEMIDE 40 MG TAB PO (10:58)
[2018-01-17] MEDS: FOLIC ACID 1 MG TAB PO (10:58)
[2018-01-17] MEDS: LEVEMIR (INSULIN DETEMIR) 1 UNITS/0.01ML SC ×2 (10:59→22:23)
[2018-01-17 11:36] LABS: BEDSIDE GLUCOSE 242 MG/DL (70-105)
[2018-01-17] MEDS: MORPHINE 4 MG/ML 1ML VIAL (J2270) IV ×2 (12:03→13:30)
[2018-01-17] MEDS: SILVER SULFADIAZINE 1% CR 50 GM JAR TOP (13:33)
[2018-01-17 16:46] LABS: BEDSIDE GLUCOSE 231 MG/DL (70-105)
[2018-01-17 20:33] LABS: BEDSIDE GLUCOSE 173 MG/DL (70-105)
[2018-01-17] MEDS: VANCOMYCIN HCL 1,000 MG, VIAL MATE ADAPTER 1 EACH in D5W 250 ML IV (23:02)
[2018-01-18] MEDS: PIPERACILLIN/TAZOBACTAM SOD 2.25 GM in APPROPRIATE DILUENT 1 EA IV ×3 (05:04→20:47)
[2018-01-18] MEDS: SODIUM CHLORIDE 0.9% INJ 10 ML SYR IV ×3 (05:05→18:30)
[2018-01-18] MEDS: PERCOCET 5MG/325MG TAB PO ×3 (05:06→20:50)
[2018-01-18] MEDS: cloNIDine 0.1 MG TAB PO ×3 (05:06→20:50)
[2018-01-18 07:00] LABS: ANION GAP 11 MEQ/L (8-16); BLOOD UREA NITROGEN 60 MG/DL (7-18); CALCIUM LEVEL 8.2 MG/DL (8.5-10.1); CARBON DIOXIDE LEVEL 21 MEQ/L (21-32); CHLORIDE LEVEL 108 MEQ/L (98-107); CREATININE FOR GFR 3.61 MG/DL (0.70-1.30); GLOMERULAR FILTRATION RATE 19.1 (>56); GLUCOSE, FASTING 236 MG/DL (70-100); SODIUM LEVEL 140 MEQ/L (136-145)
[2018-01-18 07:03] LABS: POTASSIUM SERUM 5.4 MEQ/L (3.5-5.1)
[2018-01-18 07:08] LABS: HEMATOCRIT 24.5 % (42.0-52.0); HEMOGLOBIN 7.9 g/dl (14.0-18.0); MEAN CORPUSCULAR HEMOGLOBIN 28.8 pg (27.0-33.0); MEAN CORPUSCULAR HGB CONC 32.2 g/dl (32.0-36.5); MEAN CORPUSCULAR VOLUME 89.4 fl (80.0-96.0); PLATELET COUNT, AUTOMATED 327 10^3/uL (150-450); RED BLOOD COUNT 2.74 10^6/uL (4.30-6.10); RED CELL DISTRIBUTION WIDTH 14.7 % (11.5-14.5); WHITE BLOOD COUNT 10.3 10^3/uL (4.0-10.0)
[2018-01-18 07:12] LABS: POS COUNT POS FLAG; POSITIVE MORPH POS FLAG
[2018-01-18] MEDS: ADVAIR HFA 230/21MCG INHALER INH ×2 (07:12→21:00)
[2018-01-18 07:15] LABS: ADD MANUAL DIFFER YES; DIFF SLIDE NUMBER 88
[2018-01-18 07:46] LABS: MAGNESIUM LEVEL 1.9 MG/DL (1.8-2.4)
[2018-01-18 07:50] LABS: BANDS 1 % (< 11); BASOPHILS 1 % (0-4); EOSINOPHILS 2 % (0-5); LYMPHOCYTES 14 % (16-52); METAMYELOCYTES 3 % (0-0); MONOCYTES 4 % (0-8); MYELOCYTES 3 % (0-0); NEUTROPHILS 72 % (35-75); PLATELET ESTIMATE NORMAL (NORMAL); POLYCHROMASIA 1+
[2018-01-18 07:51] LABS: ANISOCYTOSIS 1+
[2018-01-18] MEDS: HumaLOG INSULIN (NovoLOG) PER UNIT SC ×4 (08:29→20:49)
[2018-01-18] MEDS: LEVEMIR (INSULIN DETEMIR) 1 UNITS/0.01ML SC ×2 (09:19→20:48)
[2018-01-18] MEDS: FOLIC ACID 1 MG TAB PO (09:19)
[2018-01-18] MEDS: ASCORBIC ACID 500 MG TAB PO (09:20)
[2018-01-18] MEDS: FERROUS SULFATE 325MG TAB PO ×2 (09:20→20:49)
[2018-01-18] MEDS: DOCUSATE SODIUM 100 MG CAP PO ×2 (09:20→20:49)
[2018-01-18 09:39] LABS: VANCOMYCIN RANDOM 25.6 UG/ML
[2018-01-18] MEDS: ONDANSETRON 4MG/2ML VIAL (J2405) IV ×2 (09:49→18:29)
[2018-01-18] MEDS: SODIUM BICARBONATE 325 MG TAB PO ×2 (11:11→20:49)
[2018-01-18] MEDS: SOD POLYSTYRENE SULFONATE SUSP 15 GM/60 ML UD PO (13:39)
[2018-01-18] MEDS: METOCLOPRAMIDE 5 MG TAB PO (18:29)
[2018-01-19 03:14] LABS: BEDSIDE GLUCOSE 265 MG/DL (70-105)
[2018-01-19 03:14] LABS: BEDSIDE GLUCOSE 237 MG/DL (70-105)
[2018-01-19 03:14] LABS: BEDSIDE GLUCOSE 284 MG/DL (70-105)
[2018-01-19 03:15] LABS: BEDSIDE GLUCOSE 262 MG/DL (70-105)
[2018-01-19] MEDS: cloNIDine 0.1 MG TAB PO ×3 (05:22→21:03)
[2018-01-19] MEDS: PIPERACILLIN/TAZOBACTAM SOD 2.25 GM in APPROPRIATE DILUENT 1 EA IV ×3 (05:23→21:14)
[2018-01-19] MEDS: SODIUM CHLORIDE 0.9% INJ 10 ML SYR IV ×2 (05:23→18:28)
[2018-01-19] MEDS: PERCOCET 5MG/325MG TAB PO ×4 (05:28→21:05)
[2018-01-19 05:55] LABS: HEMATOCRIT 28.4 % (42.0-52.0); HEMOGLOBIN 9.1 g/dl (14.0-18.0); MEAN CORPUSCULAR HEMOGLOBIN 28.5 pg (27.0-33.0); PLATELET COUNT, AUTOMATED 389 10^3/uL (150-450); RED BLOOD COUNT 3.19 10^6/uL (4.30-6.10); RED CELL DISTRIBUTION WIDTH 14.9 % (11.5-14.5); WHITE BLOOD COUNT 11.8 10^3/uL (4.0-10.0)
[2018-01-19 06:11] LABS: ANION GAP 9 MEQ/L (8-16); BLOOD UREA NITROGEN 55 MG/DL (7-18); CALCIUM LEVEL 8.5 MG/DL (8.5-10.1); CARBON DIOXIDE LEVEL 24 MEQ/L (21-32); CHLORIDE LEVEL 109 MEQ/L (98-107); CREATININE FOR GFR 3.53 MG/DL (0.70-1.30); GLOMERULAR FILTRATION RATE 19.6 (>56); GLUCOSE, FASTING 168 MG/DL (70-100); SODIUM LEVEL 142 MEQ/L (136-145)
[2018-01-19 06:17] LABS: POTASSIUM SERUM 5.3 MEQ/L (3.5-5.1)
[2018-01-19] MEDS: ADVAIR HFA 230/21MCG INHALER INH ×2 (07:35→21:18)
[2018-01-19] MEDS: FERROUS SULFATE 325MG TAB PO ×2 (09:54→21:03)
[2018-01-19] MEDS: METOCLOPRAMIDE 5 MG TAB PO (09:54)
[2018-01-19] MEDS: LACTULOSE 20 GM/30 ML SYRUP UD PO (09:54)
[2018-01-19] MEDS: ASCORBIC ACID 500 MG TAB PO (09:54)
[2018-01-19] MEDS: SODIUM BICARBONATE 325 MG TAB PO (09:54)
[2018-01-19] MEDS: FOLIC ACID 1 MG TAB PO (09:54)
[2018-01-19] MEDS: DOCUSATE SODIUM 100 MG CAP PO ×2 (09:55→21:03)
[2018-01-19] MEDS: SENNA 8.6 MG TAB (SENOKOT) PO (09:55)
[2018-01-19] MEDS: HumaLOG INSULIN (NovoLOG) PER UNIT SC ×4 (09:55→21:00)
[2018-01-19] MEDS: LEVEMIR (INSULIN DETEMIR) 1 UNITS/0.01ML SC ×2 (09:56→21:04)
[2018-01-19] MEDS: ONDANSETRON 4MG/2ML VIAL (J2405) IV (14:53)
[2018-01-19 21:33] LABS: VANCOMYCIN LEVEL TROUGH 14.7 UG/ML (10.0-20.0)
[2018-01-19] MEDS: VANCOMYCIN HCL 1,000 MG, VIAL MATE ADAPTER 1 EACH in D5W 250 ML IV (22:00)
[2018-01-20] MEDS: METOCLOPRAMIDE 5 MG TAB PO (01:17)
[2018-01-20] MEDS: PIPERACILLIN/TAZOBACTAM SOD 2.25 GM in APPROPRIATE DILUENT 1 EA IV ×2 (04:40→13:45)
[2018-01-20] MEDS: SODIUM CHLORIDE 0.9% INJ 10 ML SYR IV ×2 (04:40→17:27)
[2018-01-20] MEDS: ONDANSETRON 4MG/2ML VIAL (J2405) IV ×2 (05:42→13:44)
[2018-01-20] MEDS: PERCOCET 5MG/325MG TAB PO ×2 (05:44→09:14)
[2018-01-20] MEDS: cloNIDine 0.1 MG TAB PO ×3 (05:45→21:26)
[2018-01-20 05:59] LABS: HEMATOCRIT 25.8 % (42.0-52.0); HEMOGLOBIN 8.2 g/dl (14.0-18.0); MEAN CORPUSCULAR HGB CONC 31.8 g/dl (32.0-36.5); MEAN CORPUSCULAR VOLUME 91.2 fl (80.0-96.0); PLATELET COUNT, AUTOMATED 314 10^3/uL (150-450); RED BLOOD COUNT 2.83 10^6/uL (4.30-6.10); RED CELL DISTRIBUTION WIDTH 15.5 % (11.5-14.5); WHITE BLOOD COUNT 10.6 10^3/uL (4.0-10.0)
[2018-01-20 06:22] LABS: ANION GAP 8 MEQ/L (8-16); BLOOD UREA NITROGEN 58 MG/DL (7-18); CALCIUM LEVEL 8.2 MG/DL (8.5-10.1); CARBON DIOXIDE LEVEL 25 MEQ/L (21-32); CHLORIDE LEVEL 111 MEQ/L (98-107); CREATININE FOR GFR 3.45 MG/DL (0.70-1.30); GLOMERULAR FILTRATION RATE 20.2 (>56); GLUCOSE, FASTING 200 MG/DL (70-100); SODIUM LEVEL 144 MEQ/L (136-145)
[2018-01-20] MEDS: LEVEMIR (INSULIN DETEMIR) 1 UNITS/0.01ML SC ×2 (09:12→21:26)
[2018-01-20] MEDS: HumaLOG INSULIN (NovoLOG) PER UNIT SC ×4 (09:12→21:00)
[2018-01-20] MEDS: ASCORBIC ACID 500 MG TAB PO (09:12)
[2018-01-20] MEDS: FOLIC ACID 1 MG TAB PO (09:12)
[2018-01-20] MEDS: FERROUS SULFATE 325MG TAB PO ×2 (09:13→21:26)
[2018-01-20] MEDS: SENNA 8.6 MG TAB (SENOKOT) PO (09:13)
[2018-01-20] MEDS: DOCUSATE SODIUM 100 MG CAP PO ×2 (09:13→21:27)
[2018-01-20] MEDS: ADVAIR HFA 230/21MCG INHALER INH ×2 (09:29→20:39)
[2018-01-20] MEDS ORDERED: MORPHINE 10 MG/ML 1ML VIAL (J2270) IV (10:15)
[2018-01-20] MEDS: MORPHINE 10 MG/ML 1ML VIAL (J2270) IV (10:33)
[2018-01-20] MEDS: CEFTAROLINE FOSAMIL 300 MG in D5W 50 ML IV (22:04)
[2018-01-21] MEDS: PERCOCET 5MG/325MG TAB PO ×2 (02:22→22:05)
[2018-01-21] MEDS: SODIUM CHLORIDE 0.9% INJ 10 ML SYR IV ×3 (05:24→17:45)
[2018-01-21] MEDS: cloNIDine 0.1 MG TAB PO ×3 (05:24→22:05)
[2018-01-21] MEDS: METOCLOPRAMIDE 5 MG TAB PO (05:25)
[2018-01-21 05:44] LABS: HEMATOCRIT 24.6 % (42.0-52.0); HEMOGLOBIN 7.7 g/dl (14.0-18.0); MEAN CORPUSCULAR HEMOGLOBIN 28.4 pg (27.0-33.0); MEAN CORPUSCULAR HGB CONC 31.3 g/dl (32.0-36.5); MEAN CORPUSCULAR VOLUME 90.8 fl (80.0-96.0); PLATELET COUNT, AUTOMATED 309 10^3/uL (150-450); RED BLOOD COUNT 2.71 10^6/uL (4.30-6.10); RED CELL DISTRIBUTION WIDTH 15.9 % (11.5-14.5); WHITE BLOOD COUNT 9.6 10^3/uL (4.0-10.0)
[2018-01-21 06:25] LABS: ANION GAP 8 MEQ/L (8-16); BLOOD UREA NITROGEN 61 MG/DL (7-18); CARBON DIOXIDE LEVEL 25 MEQ/L (21-32); CHLORIDE LEVEL 110 MEQ/L (98-107); CREATININE FOR GFR 3.77 MG/DL (0.70-1.30); GLOMERULAR FILTRATION RATE 18.2 (>56); GLUCOSE, FASTING 173 MG/DL (70-100); POTASSIUM SERUM 5.1 MEQ/L (3.5-5.1); SODIUM LEVEL 143 MEQ/L (136-145)
[2018-01-21] MEDS: SENNA 8.6 MG TAB (SENOKOT) PO (08:31)
[2018-01-21] MEDS: FERROUS SULFATE 325MG TAB PO ×2 (08:31→22:04)
[2018-01-21] MEDS: DOCUSATE SODIUM 100 MG CAP PO ×2 (08:31→22:04)
[2018-01-21] MEDS: ONDANSETRON 4MG/2ML VIAL (J2405) IV (08:31)
[2018-01-21] MEDS: FOLIC ACID 1 MG TAB PO (08:31)
[2018-01-21] MEDS: CEFTAROLINE FOSAMIL 300 MG in D5W 50 ML IV ×2 (08:31→22:06)
[2018-01-21] MEDS: EUCERIN 120GM CREAM TOP ×2 (08:31→22:08)
[2018-01-21] MEDS: ASCORBIC ACID 500 MG TAB PO (08:31)
[2018-01-21] MEDS: LEVEMIR (INSULIN DETEMIR) 1 UNITS/0.01ML SC ×2 (08:32→22:07)
[2018-01-21] MEDS: HumaLOG INSULIN (NovoLOG) PER UNIT SC ×4 (08:32→21:00)
[2018-01-21] MEDS: ADVAIR HFA 230/21MCG INHALER INH ×2 (08:52→21:18)
[2018-01-21 09:15] LABS: ERYTHROCYTE SEDIMENTATION RATE 127 mm/hr (0-20)
[2018-01-21] MEDS ORDERED: MORPHINE 10 MG/ML 1ML VIAL (J2270) IV (10:15)
[2018-01-21] MEDS: MOM 30ML SUSPENSION UDC PO (10:32)
[2018-01-22] MEDS: SODIUM CHLORIDE 0.9% INJ 10 ML SYR IV ×2 (05:59→17:34)
[2018-01-22] MEDS: cloNIDine 0.1 MG TAB PO ×3 (05:59→21:05)
[2018-01-22 06:13] LABS: HEMOGLOBIN 8.1 g/dl (14.0-18.0); MEAN CORPUSCULAR HEMOGLOBIN 28.4 pg (27.0-33.0); MEAN CORPUSCULAR HGB CONC 31.2 g/dl (32.0-36.5); MEAN CORPUSCULAR VOLUME 91.2 fl (80.0-96.0); PLATELET COUNT, AUTOMATED 307 10^3/uL (150-450); RED BLOOD COUNT 2.85 10^6/uL (4.30-6.10); RED CELL DISTRIBUTION WIDTH 16.2 % (11.5-14.5); WHITE BLOOD COUNT 10.3 10^3/uL (4.0-10.0)
[2018-01-22 06:38] LABS: ANION GAP 7 MEQ/L (8-16); BLOOD UREA NITROGEN 65 MG/DL (7-18); CALCIUM LEVEL 8.2 MG/DL (8.5-10.1); CARBON DIOXIDE LEVEL 25 MEQ/L (21-32); CHLORIDE LEVEL 110 MEQ/L (98-107); CREATININE FOR GFR 3.66 MG/DL (0.70-1.30); GLOMERULAR FILTRATION RATE 18.8 (>56); GLUCOSE, FASTING 192 MG/DL (70-100); SODIUM LEVEL 142 MEQ/L (136-145)
[2018-01-22 06:40] LABS: POTASSIUM SERUM 5.2 MEQ/L (3.5-5.1)
[2018-01-22] MEDS: ADVAIR HFA 230/21MCG INHALER INH ×2 (08:15→21:00)
[2018-01-22 08:27] LABS: BEDSIDE GLUCOSE 271 MG/DL (70-105)
[2018-01-22 08:27] LABS: BEDSIDE GLUCOSE 267 MG/DL (70-105)
[2018-01-22 08:27] LABS: BEDSIDE GLUCOSE 380 MG/DL (70-105)
[2018-01-22 08:27] LABS: BEDSIDE GLUCOSE 200 MG/DL (70-105)
[2018-01-22] MEDS: HumaLOG INSULIN (NovoLOG) PER UNIT SC ×4 (09:33→21:00)
[2018-01-22] MEDS: FOLIC ACID 1 MG TAB PO (10:37)
[2018-01-22] MEDS: FERROUS SULFATE 325MG TAB PO ×2 (10:37→21:05)
[2018-01-22] MEDS: ONDANSETRON 4MG/2ML VIAL (J2405) IV (10:37)
[2018-01-22] MEDS: ASCORBIC ACID 500 MG TAB PO (10:38)
[2018-01-22] MEDS: DOCUSATE SODIUM 100 MG CAP PO ×2 (10:38→21:04)
[2018-01-22] MEDS: SENNA 8.6 MG TAB (SENOKOT) PO (10:38)
[2018-01-22] MEDS: LEVEMIR (INSULIN DETEMIR) 1 UNITS/0.01ML SC ×2 (10:39→21:06)
[2018-01-22] MEDS: PERCOCET 5MG/325MG TAB PO ×2 (10:40→21:05)
[2018-01-22] MEDS: CEFTAROLINE FOSAMIL 300 MG in D5W 50 ML IV ×2 (10:40→21:03)
[2018-01-22] MEDS: SOD POLYSTYRENE SULFONATE SUSP 15 GM/60 ML UD PO (10:41)
[2018-01-22] MEDS: EUCERIN 120GM CREAM TOP ×2 (10:42→21:00)
[2018-01-22 13:03] LABS: BEDSIDE GLUCOSE 310 MG/DL (70-105)
[2018-01-22] MEDS: METOCLOPRAMIDE 5 MG TAB PO (21:03)
[2018-01-22 21:47] LABS: BEDSIDE GLUCOSE 201 MG/DL (70-105)
[2018-01-22 21:47] LABS: BEDSIDE GLUCOSE 280 MG/DL (70-105)
[2018-01-22 21:47] LABS: BEDSIDE GLUCOSE 201 MG/DL (70-105)
[2018-01-22 21:48] LABS: BEDSIDE GLUCOSE 232 MG/DL (70-105)
[2018-01-22 21:48] LABS: BEDSIDE GLUCOSE 134 MG/DL (70-105)
[2018-01-22 21:48] LABS: BEDSIDE GLUCOSE 331 MG/DL (70-105)
[2018-01-22 21:48] LABS: BEDSIDE GLUCOSE 179 MG/DL (70-105)
[2018-01-23] MEDS: SODIUM CHLORIDE 0.9% INJ 10 ML SYR IV ×2 (05:16→18:37)
[2018-01-23] MEDS: cloNIDine 0.1 MG TAB PO ×3 (05:16→22:40)
[2018-01-23] MEDS: PERCOCET 5MG/325MG TAB PO ×2 (05:26→22:41)
[2018-01-23 05:33] LABS: HEMATOCRIT 25.9 % (42.0-52.0); HEMOGLOBIN 8.4 g/dl (14.0-18.0); MEAN CORPUSCULAR HEMOGLOBIN 29.6 pg (27.0-33.0); MEAN CORPUSCULAR HGB CONC 32.4 g/dl (32.0-36.5); MEAN CORPUSCULAR VOLUME 91.2 fl (80.0-96.0); PLATELET COUNT, AUTOMATED 271 10^3/uL (150-450); RED BLOOD COUNT 2.84 10^6/uL (4.30-6.10); RED CELL DISTRIBUTION WIDTH 16.3 % (11.5-14.5)
[2018-01-23 06:02] LABS: ANION GAP 6 MEQ/L (8-16); BLOOD UREA NITROGEN 62 MG/DL (7-18); CALCIUM LEVEL 8.1 MG/DL (8.5-10.1); CARBON DIOXIDE LEVEL 25 MEQ/L (21-32); CHLORIDE LEVEL 111 MEQ/L (98-107); CREATININE FOR GFR 3.47 MG/DL (0.70-1.30); GLUCOSE, FASTING 182 MG/DL (70-100); SODIUM LEVEL 142 MEQ/L (136-145)
[2018-01-23 06:08] LABS: POTASSIUM SERUM 5.2 MEQ/L (3.5-5.1)
[2018-01-23] MEDS: HumaLOG INSULIN (NovoLOG) PER UNIT SC ×4 (07:41→21:00)
[2018-01-23] MEDS: ADVAIR HFA 230/21MCG INHALER INH ×2 (08:14→18:53)
[2018-01-23] MEDS: EUCERIN 120GM CREAM TOP ×2 (09:00→21:00)
[2018-01-23] MEDS: DOCUSATE SODIUM 100 MG CAP PO ×2 (09:54→22:39)
[2018-01-23] MEDS: FERROUS SULFATE 325MG TAB PO ×2 (09:54→22:40)
[2018-01-23] MEDS: SENNA 8.6 MG TAB (SENOKOT) PO (09:54)
[2018-01-23] MEDS: FOLIC ACID 1 MG TAB PO (09:54)
[2018-01-23] MEDS: ASCORBIC ACID 500 MG TAB PO (09:55)
[2018-01-23] MEDS: ONDANSETRON 4MG/2ML VIAL (J2405) IV (10:03)
[2018-01-23] MEDS: CEFTAROLINE FOSAMIL 300 MG in D5W 50 ML IV ×2 (11:29→22:39)
[2018-01-23] MEDS: DARBEPOETIN 100 MCG/0.5 ML *NON-DIALYSIS* SYRINGE (J0881) SC (11:31)
[2018-01-23] MEDS: LEVEMIR (INSULIN DETEMIR) 1 UNITS/0.01ML SC ×2 (11:31→22:39)
[2018-01-23 12:30] LABS: BEDSIDE GLUCOSE 242 MG/DL (70-105)
[2018-01-23 21:37] LABS: BEDSIDE GLUCOSE 204 MG/DL (70-105)
[2018-01-23 21:37] LABS: BEDSIDE GLUCOSE 271 MG/DL (70-105)
[2018-01-23] MEDS: HEPARIN SOD (PORCINE) 5000 UNITS/ML VIAL SQ (22:39)
[2018-01-24] MEDS: cloNIDine 0.1 MG TAB PO ×3 (05:20→21:31)
[2018-01-24] MEDS: SODIUM CHLORIDE 0.9% INJ 10 ML SYR IV ×2 (05:28→17:23)
[2018-01-24 05:53] LABS: HEMATOCRIT 27.3 % (42.0-52.0); HEMOGLOBIN 8.4 g/dl (14.0-18.0); MEAN CORPUSCULAR HGB CONC 30.8 g/dl (32.0-36.5); PLATELET COUNT, AUTOMATED 284 10^3/uL (150-450); RED CELL DISTRIBUTION WIDTH 16.8 % (11.5-14.5); WHITE BLOOD COUNT 9.6 10^3/uL (4.0-10.0)
[2018-01-24 06:21] LABS: ANION GAP 9 MEQ/L (8-16); BLOOD UREA NITROGEN 62 MG/DL (7-18); CALCIUM LEVEL 8.5 MG/DL (8.5-10.1); CARBON DIOXIDE LEVEL 24 MEQ/L (21-32); CHLORIDE LEVEL 108 MEQ/L (98-107); CREATININE FOR GFR 3.57 MG/DL (0.70-1.30); GLOMERULAR FILTRATION RATE 19.4 (>56); GLUCOSE, FASTING 145 MG/DL (70-100); SODIUM LEVEL 141 MEQ/L (136-145)
[2018-01-24] MEDS: ADVAIR HFA 230/21MCG INHALER INH (07:25)
[2018-01-24] MEDS: HumaLOG INSULIN (NovoLOG) PER UNIT SC ×4 (07:30→21:00)
[2018-01-24] MEDS: FERROUS SULFATE 325MG TAB PO ×2 (09:00→21:31)
[2018-01-24] MEDS: DOCUSATE SODIUM 100 MG CAP PO ×2 (09:00→21:32)
[2018-01-24] MEDS: EUCERIN 120GM CREAM TOP ×2 (09:00→21:00)
[2018-01-24] MEDS: LEVEMIR (INSULIN DETEMIR) 1 UNITS/0.01ML SC ×3 (09:00→21:30)
[2018-01-24] MEDS: CEFTAROLINE FOSAMIL 300 MG in D5W 50 ML IV ×2 (09:29→21:27)
[2018-01-24] MEDS: HEPARIN SOD (PORCINE) 5000 UNITS/ML VIAL SQ ×2 (11:56→21:29)
[2018-01-24] MEDS ORDERED: E-Z-GAS II EFFERVESCENT PACKET (SODIUM BICARB./CITRIC ACID/SIMETHICONE) As Ordered (13:08)
[2018-01-24] MEDS ORDERED: E-Z-HD 98% w/w 340GM SUSP BTL As Ordered (13:08)
[2018-01-24] MEDS ORDERED: E-Z-PAQUE 96% w/w SUSP 176GM BTL As Ordered ×2 (13:08→13:58)
[2018-01-24] MEDS: ONDANSETRON 4MG/2ML VIAL (J2405) IV (17:19)
[2018-01-24] MEDS: MORPHINE 10 MG/ML 1ML VIAL (J2270) IV (17:20)
[2018-01-24] MEDS: FOLIC ACID 1 MG TAB PO (17:21)
[2018-01-24] MEDS: ASCORBIC ACID 500 MG TAB PO (17:22)
[2018-01-24] MEDS: SENNA 8.6 MG TAB (SENOKOT) PO (17:23)
[2018-01-24] MEDS: PERCOCET 5MG/325MG TAB PO (21:31)
[2018-01-25] MEDS: ADVAIR HFA 230/21MCG INHALER INH ×3 (03:28→20:14)
[2018-01-25] MEDS: cloNIDine 0.1 MG TAB PO ×3 (06:00→21:32)
[2018-01-25] MEDS: SODIUM CHLORIDE 0.9% INJ 10 ML SYR IV ×2 (06:07→18:05)
[2018-01-25 06:19] LABS: HEMATOCRIT 27.8 % (42.0-52.0); HEMOGLOBIN 8.7 g/dl (14.0-18.0); MEAN CORPUSCULAR HEMOGLOBIN 28.8 pg (27.0-33.0); MEAN CORPUSCULAR HGB CONC 31.3 g/dl (32.0-36.5); MEAN CORPUSCULAR VOLUME 92.1 fl (80.0-96.0); PLATELET COUNT, AUTOMATED 231 10^3/uL (150-450); RED BLOOD COUNT 3.02 10^6/uL (4.30-6.10); WHITE BLOOD COUNT 8.2 10^3/uL (4.0-10.0)
[2018-01-25 06:44] LABS: ANION GAP 7 MEQ/L (8-16); BLOOD UREA NITROGEN 59 MG/DL (7-18); CALCIUM LEVEL 8.6 MG/DL (8.5-10.1); CARBON DIOXIDE LEVEL 24 MEQ/L (21-32); CHLORIDE LEVEL 108 MEQ/L (98-107); CREATININE FOR GFR 3.64 MG/DL (0.70-1.30); GLUCOSE, FASTING 232 MG/DL (70-100); SODIUM LEVEL 139 MEQ/L (136-145)
[2018-01-25 06:46] LABS: POTASSIUM SERUM 5.2 MEQ/L (3.5-5.1)
[2018-01-25] MEDS: HumaLOG INSULIN (NovoLOG) PER UNIT SC ×4 (09:03→21:34)
[2018-01-25] MEDS: FERROUS SULFATE 325MG TAB PO ×2 (09:03→21:32)
[2018-01-25] MEDS: DOCUSATE SODIUM 100 MG CAP PO (09:03)
[2018-01-25] MEDS: LEVEMIR (INSULIN DETEMIR) 1 UNITS/0.01ML SC ×2 (09:03→21:33)
[2018-01-25] MEDS: ASCORBIC ACID 500 MG TAB PO (09:03)
[2018-01-25] MEDS: FOLIC ACID 1 MG TAB PO (09:04)
[2018-01-25] MEDS: CEFTAROLINE FOSAMIL 300 MG in D5W 50 ML IV ×2 (09:04→21:34)
[2018-01-25] MEDS: SENNA 8.6 MG TAB (SENOKOT) PO (09:04)
[2018-01-25] MEDS: EUCERIN 120GM CREAM TOP ×2 (09:05→21:34)
[2018-01-25] MEDS: HEPARIN SOD (PORCINE) 5000 UNITS/ML VIAL SQ ×2 (09:05→21:33)
[2018-01-25] MEDS: SENOKOT S TAB PO ×2 (13:21→21:31)
[2018-01-25] MEDS: MIRALAX *UNIT DOSE* 17GM PACKET PO (13:21)
[2018-01-25] MEDS: SODIUM CHLORIDE 0.45% 1000 ML IV (13:24)
[2018-01-25 14:11] LABS: CHLORIDE,RANDOM URINE 62 MEQ/L; CREATININE,RANDOM URINE 49.8 MG/DL; SODIUM,RANDOM URINE 80 MEQ/L
[2018-01-25 21:46] LABS: APPEARANCE, URINE HAZY (CLEAR); BACTERIA, URINE AUTO NEGATIVE (NEGATIVE); BILIRUBIN, URINE AUTO NEGATIVE (NEGATIVE); BLOOD, URINE BLOOD NEGATIVE (NEGATIVE); COLOR, URINE YELLOW (YELLOW); GLUCOSE, URINE (UA) AUTO 1+ mg/dL (NEGATIVE); KETONE, URINE AUTO NEGATIVE (NEGATIVE); LEUKOCYTE ESTERASE, URINE AUTO NEGATIVE (NEGATIVE); MUCUS, URINE SMALL (NEGATIVE); NITRITE, URINE AUTO NEGATIVE (NEGATIVE); PROTEIN, URINE AUTO 2+ mg/dL (NEGATIVE); RBC, URINE AUTO 1 /HPF (0-3); SPECIFIC GRAVITY URINE AUTO 1.011 (1.002-1.035); SQUAMOUS EPITHELIAL CELL UR AU 0 /HPF (0-6); UROBILINOGEN, URINE AUTO 0.2 mg/dL (0.0-2.0); WBC, URINE AUTO 1 /HPF (0-3)
[2018-01-26] MEDS: cloNIDine 0.1 MG TAB PO ×3 (05:58→21:20)
[2018-01-26] MEDS: SODIUM CHLORIDE 0.9% INJ 10 ML SYR IV ×2 (06:14→17:24)
[2018-01-26 06:26] LABS: HEMATOCRIT 28.2 % (42.0-52.0); MEAN CORPUSCULAR HEMOGLOBIN 29.1 pg (27.0-33.0); MEAN CORPUSCULAR HGB CONC 31.9 g/dl (32.0-36.5); MEAN CORPUSCULAR VOLUME 91.3 fl (80.0-96.0); PLATELET COUNT, AUTOMATED 233 10^3/uL (150-450); RED BLOOD COUNT 3.09 10^6/uL (4.30-6.10); RED CELL DISTRIBUTION WIDTH 17.2 % (11.5-14.5); WHITE BLOOD COUNT 7.9 10^3/uL (4.0-10.0)
[2018-01-26 07:00] LABS: ALBUMIN 2.6 GM/DL (3.2-5.2); ANION GAP 7 MEQ/L (8-16); BLOOD UREA NITROGEN 62 MG/DL (7-18); CALCIUM LEVEL 8.4 MG/DL (8.5-10.1); CARBON DIOXIDE LEVEL 25 MEQ/L (21-32); CHLORIDE LEVEL 111 MEQ/L (98-107); CREATININE FOR GFR 3.64 MG/DL (0.70-1.30); GLUCOSE, FASTING 121 MG/DL (70-100); MAGNESIUM LEVEL 2.7 MG/DL (1.8-2.4); PHOSPHORUS LEVEL 5.6 MG/DL (2.5-4.9); POTASSIUM SERUM 5.1 MEQ/L (3.5-5.1); SODIUM LEVEL 143 MEQ/L (136-145)
[2018-01-26] MEDS: ADVAIR HFA 230/21MCG INHALER INH ×2 (07:49→21:00)
[2018-01-26] MEDS: MIRALAX *UNIT DOSE* 17GM PACKET PO (09:09)
[2018-01-26] MEDS: FERROUS SULFATE 325MG TAB PO ×2 (09:09→21:19)
[2018-01-26] MEDS: SENNA 8.6 MG TAB (SENOKOT) PO (09:09)
[2018-01-26] MEDS: SENOKOT S TAB PO ×2 (09:10→21:19)
[2018-01-26] MEDS: LEVEMIR (INSULIN DETEMIR) 1 UNITS/0.01ML SC ×2 (09:10→21:19)
[2018-01-26] MEDS: HumaLOG INSULIN (NovoLOG) PER UNIT SC ×4 (09:11→21:00)
[2018-01-26] MEDS: CEFTAROLINE FOSAMIL 300 MG in D5W 50 ML IV ×2 (09:11→21:20)
[2018-01-26] MEDS: FOLIC ACID 1 MG TAB PO (09:12)
[2018-01-26] MEDS: EUCERIN 120GM CREAM TOP ×2 (09:12→21:21)
[2018-01-26] MEDS: HEPARIN SOD (PORCINE) 5000 UNITS/ML VIAL SQ ×2 (09:12→21:18)
[2018-01-27 02:31] LABS: BEDSIDE GLUCOSE 159 MG/DL (70-105)
[2018-01-27 02:31] LABS: BEDSIDE GLUCOSE 188 MG/DL (70-105)
[2018-01-27 02:31] LABS: BEDSIDE GLUCOSE 186 MG/DL (70-105)
[2018-01-27 02:31] LABS: BEDSIDE GLUCOSE 177 MG/DL (70-105)
[2018-01-27 02:31] LABS: BEDSIDE GLUCOSE 191 MG/DL (70-105)
[2018-01-27 02:31] LABS: BEDSIDE GLUCOSE 205 MG/DL (70-105)
[2018-01-27 02:31] LABS: BEDSIDE GLUCOSE 102 MG/DL (70-105)
[2018-01-27 02:31] LABS: BEDSIDE GLUCOSE 219 MG/DL (70-105)
[2018-01-27 02:31] LABS: BEDSIDE GLUCOSE 282 MG/DL (70-105)
[2018-01-27] MEDS: SODIUM CHLORIDE 0.9% INJ 10 ML SYR IV ×4 (05:12→18:29)
[2018-01-27 05:23] LABS: HEMATOCRIT 28.1 % (42.0-52.0); HEMOGLOBIN 8.8 g/dl (14.0-18.0); MEAN CORPUSCULAR HEMOGLOBIN 28.7 pg (27.0-33.0); MEAN CORPUSCULAR HGB CONC 31.3 g/dl (32.0-36.5); MEAN CORPUSCULAR VOLUME 91.5 fl (80.0-96.0); PLATELET COUNT, AUTOMATED 219 10^3/uL (150-450); RED BLOOD COUNT 3.07 10^6/uL (4.30-6.10); WHITE BLOOD COUNT 8.2 10^3/uL (4.0-10.0)
[2018-01-27 05:52] LABS: ALBUMIN 2.6 GM/DL (3.2-5.2); ANION GAP 6 MEQ/L (8-16); BLOOD UREA NITROGEN 70 MG/DL (7-18); C REACTIVE PROTEIN QUANTITATIV 1.54 MG/DL (0.00-0.30); CALCIUM LEVEL 8.2 MG/DL (8.5-10.1); CARBON DIOXIDE LEVEL 23 MEQ/L (21-32); CHLORIDE LEVEL 110 MEQ/L (98-107); CREATININE FOR GFR 3.46 MG/DL (0.70-1.30); GLOMERULAR FILTRATION RATE 20.1 (>56); GLUCOSE, FASTING 176 MG/DL (70-100); MAGNESIUM LEVEL 2.6 MG/DL (1.8-2.4); SODIUM LEVEL 139 MEQ/L (136-145)
[2018-01-27 05:54] LABS: POTASSIUM SERUM 5.8 MEQ/L (3.5-5.1)
[2018-01-27 05:56] LABS: ERYTHROCYTE SEDIMENTATION RATE > 140 mm/hr (0-20)
[2018-01-27] MEDS: cloNIDine 0.1 MG TAB PO ×3 (06:21→21:17)
[2018-01-27] MEDS: ADVAIR HFA 230/21MCG INHALER INH ×2 (07:21→20:40)
[2018-01-27] MEDS: HumaLOG INSULIN (NovoLOG) PER UNIT SC ×4 (08:12→21:00)
[2018-01-27] MEDS: SOD POLYSTYRENE SULFONATE SUSP 15 GM/60 ML UD PO (08:14)
[2018-01-27] MEDS: SENNA 8.6 MG TAB (SENOKOT) PO (09:00)
[2018-01-27] MEDS: SENOKOT S TAB PO ×2 (10:22→21:00)
[2018-01-27] MEDS: FOLIC ACID 1 MG TAB PO (10:23)
[2018-01-27] MEDS: MIRALAX *UNIT DOSE* 17GM PACKET PO (10:23)
[2018-01-27] MEDS: FERROUS SULFATE 325MG TAB PO (10:23)
[2018-01-27] MEDS: HEPARIN SOD (PORCINE) 5000 UNITS/ML VIAL SQ ×2 (10:24→21:16)
[2018-01-27] MEDS: LEVEMIR (INSULIN DETEMIR) 1 UNITS/0.01ML SC ×2 (10:25→21:17)
[2018-01-27] MEDS: LACTULOSE 20 GM/30 ML SYRUP UD PO (10:25)
[2018-01-27] MEDS: EUCERIN 120GM CREAM TOP ×2 (10:27→21:16)
[2018-01-27] MEDS: CEFTAROLINE FOSAMIL 300 MG in D5W 50 ML IV ×2 (10:27→21:16)
[2018-01-27] MEDS: PERCOCET 5MG/325MG TAB PO (14:24)
[2018-01-27] MEDS: MORPHINE 30 MG TAB **MSIR PO (15:10)
[2018-01-27 21:48] LABS: ANION GAP 10 MEQ/L (8-16); BLOOD UREA NITROGEN 67 MG/DL (7-18); CALCIUM LEVEL 8.5 MG/DL (8.5-10.1); CARBON DIOXIDE LEVEL 21 MEQ/L (21-32); CHLORIDE LEVEL 111 MEQ/L (98-107); CREATININE FOR GFR 3.58 MG/DL (0.70-1.30); GLOMERULAR FILTRATION RATE 19.3 (>56); GLUCOSE, FASTING 105 MG/DL (70-100); SODIUM LEVEL 142 MEQ/L (136-145)
[2018-01-27 22:04] LABS: POTASSIUM SERUM 5.5 MEQ/L (3.5-5.1)
[2018-01-28] MEDS: SODIUM CHLORIDE 0.9% INJ 10 ML SYR IV ×2 (05:18→17:34)
[2018-01-28 05:33] LABS: HEMATOCRIT 29.8 % (42.0-52.0); HEMOGLOBIN 9.2 g/dl (14.0-18.0); MEAN CORPUSCULAR HEMOGLOBIN 28.7 pg (27.0-33.0); MEAN CORPUSCULAR HGB CONC 30.9 g/dl (32.0-36.5); MEAN CORPUSCULAR VOLUME 92.8 fl (80.0-96.0); PLATELET COUNT, AUTOMATED 193 10^3/uL (150-450); RED BLOOD COUNT 3.21 10^6/uL (4.30-6.10); RED CELL DISTRIBUTION WIDTH 17.1 % (11.5-14.5); WHITE BLOOD COUNT 7.4 10^3/uL (4.0-10.0)
[2018-01-28 05:55] LABS: ALBUMIN 2.7 GM/DL (3.2-5.2); ANION GAP 7 MEQ/L (8-16); BLOOD UREA NITROGEN 70 MG/DL (7-18); CALCIUM LEVEL 8.7 MG/DL (8.5-10.1); CARBON DIOXIDE LEVEL 24 MEQ/L (21-32); CHLORIDE LEVEL 110 MEQ/L (98-107); CREATININE FOR GFR 3.72 MG/DL (0.70-1.30); GLOMERULAR FILTRATION RATE 18.5 (>56); GLUCOSE, FASTING 162 MG/DL (70-100); MAGNESIUM LEVEL 2.7 MG/DL (1.8-2.4); SODIUM LEVEL 141 MEQ/L (136-145)
[2018-01-28] MEDS: cloNIDine 0.1 MG TAB PO ×2 (06:00→09:00)
[2018-01-28 06:05] LABS: PHOSPHORUS LEVEL 6.1 MG/DL (2.5-4.9)
[2018-01-28] MEDS: ADVAIR HFA 230/21MCG INHALER INH ×2 (07:21→20:08)
[2018-01-28] MEDS: HumaLOG INSULIN (NovoLOG) PER UNIT SC ×4 (07:56→21:00)
[2018-01-28] MEDS: EUCERIN 120GM CREAM TOP ×2 (09:00→21:18)
[2018-01-28] MEDS: MIRALAX *UNIT DOSE* 17GM PACKET PO (09:00)
[2018-01-28] MEDS: SENOKOT S TAB PO ×2 (09:00→21:18)
[2018-01-28] MEDS: SENNA 8.6 MG TAB (SENOKOT) PO (09:00)
[2018-01-28] MEDS: FOLIC ACID 1 MG TAB PO (10:51)
[2018-01-28] MEDS: FERROUS SULFATE 325MG TAB PO (10:51)
[2018-01-28] MEDS: LEVEMIR (INSULIN DETEMIR) 1 UNITS/0.01ML SC ×2 (10:52→21:18)
[2018-01-28] MEDS: CEFTAROLINE FOSAMIL 300 MG in D5W 50 ML IV ×2 (10:53→21:17)
[2018-01-28] MEDS: HEPARIN SOD (PORCINE) 5000 UNITS/ML VIAL SQ ×2 (13:44→21:18)
[2018-01-29] MEDS: SODIUM CHLORIDE 0.9% INJ 10 ML SYR IV ×2 (05:39→17:19)
[2018-01-29 05:46] LABS: HEMATOCRIT 29.6 % (42.0-52.0); HEMOGLOBIN 9.2 g/dl (14.0-18.0); MEAN CORPUSCULAR HEMOGLOBIN 28.7 pg (27.0-33.0); MEAN CORPUSCULAR HGB CONC 31.1 g/dl (32.0-36.5); MEAN CORPUSCULAR VOLUME 92.2 fl (80.0-96.0); PLATELET COUNT, AUTOMATED 215 10^3/uL (150-450); RED BLOOD COUNT 3.21 10^6/uL (4.30-6.10); WHITE BLOOD COUNT 7.6 10^3/uL (4.0-10.0)
[2018-01-29 06:52] LABS: ALBUMIN 2.6 GM/DL (3.2-5.2); ANION GAP 6 MEQ/L (8-16); BLOOD UREA NITROGEN 67 MG/DL (7-18); CALCIUM LEVEL 8.5 MG/DL (8.5-10.1); CARBON DIOXIDE LEVEL 22 MEQ/L (21-32); CHLORIDE LEVEL 114 MEQ/L (98-107); CREATININE FOR GFR 3.79 MG/DL (0.70-1.30); GLOMERULAR FILTRATION RATE 18.1 (>56); GLUCOSE, FASTING 115 MG/DL (70-100); MAGNESIUM LEVEL 2.5 MG/DL (1.8-2.4); SODIUM LEVEL 142 MEQ/L (136-145)
[2018-01-29 07:03] LABS: POTASSIUM SERUM 5.3 MEQ/L (3.5-5.1)
[2018-01-29] MEDS: ADVAIR HFA 230/21MCG INHALER INH ×2 (07:46→21:27)
[2018-01-29] MEDS: HumaLOG INSULIN (NovoLOG) PER UNIT SC ×4 (08:15→21:00)
[2018-01-29] MEDS: CEFTAROLINE FOSAMIL 300 MG in D5W 50 ML IV ×2 (08:15→21:31)
[2018-01-29] MEDS: CALCIUM ACETATE 667 MG GELCAP PO ×3 (08:16→17:20)
[2018-01-29] MEDS: FOLIC ACID 1 MG TAB PO (08:16)
[2018-01-29] MEDS: LEVEMIR (INSULIN DETEMIR) 1 UNITS/0.01ML SC ×2 (08:16→21:31)
[2018-01-29] MEDS: FERROUS SULFATE 325MG TAB PO (08:17)
[2018-01-29] MEDS: cloNIDine 0.1 MG TAB PO ×2 (08:17→17:21)
[2018-01-29] MEDS: SENNA 8.6 MG TAB (SENOKOT) PO (09:00)
[2018-01-29] MEDS: MIRALAX *UNIT DOSE* 17GM PACKET PO (09:00)
[2018-01-29] MEDS: SENOKOT S TAB PO ×2 (09:00→21:32)
[2018-01-29] MEDS: EUCERIN 120GM CREAM TOP ×2 (09:26→21:00)
[2018-01-29] MEDS: HEPARIN SOD (PORCINE) 5000 UNITS/ML VIAL SQ ×2 (10:09→21:31)
[2018-01-29 10:59] LABS: CHOLESTEROL LEVEL 151 MG/DL (<200); CHOLESTEROL RISK RATIO 5.033 (<5); HDL CHOLESTEROL 30 MG/DL (>40); LDL CHOLESTEROL 91.4 MG/DL (<100); NON-HDL-C 121 MG/DL; TRIGLYCERIDES LEVEL 148 MG/DL (<150)
[2018-01-29 11:03] LABS: ESTIMATED AVERAGE GLUCOSE 143 MG/DL (60-110); HEMOGLOBIN A1c 6.6 %
[2018-01-29 12:34] LABS: HEPATITIS B SURFACE ANTIBODY POSITIVE (POSITIVE)
[2018-01-29 12:44] LABS: HEPATITIS B SURFACE ANTIGEN NEGATIVE (NEGATIVE)
[2018-01-29 13:12] LABS: HEPATITIS C VIRUS ABY INDEX 0.1 INDEX (<0.8)
[2018-01-29 13:13] LABS: HEPATITIS B CORE ANTIBODY IGM NEGATIVE (NEGATIVE)
[2018-01-29] MEDS: MORPHINE 30 MG TAB **MSIR PO (14:01)
[2018-01-30] MEDS: SODIUM CHLORIDE 0.9% INJ 10 ML SYR IV ×2 (05:12→18:44)
[2018-01-30] MEDS: PERCOCET 5MG/325MG TAB PO (05:12)
[2018-01-30 05:37] LABS: HEMATOCRIT 30.9 % (42.0-52.0); HEMOGLOBIN 9.6 g/dl (14.0-18.0); MEAN CORPUSCULAR HGB CONC 31.1 g/dl (32.0-36.5); MEAN CORPUSCULAR VOLUME 93.4 fl (80.0-96.0); PLATELET COUNT, AUTOMATED 219 10^3/uL (150-450); RED BLOOD COUNT 3.31 10^6/uL (4.30-6.10); RED CELL DISTRIBUTION WIDTH 16.8 % (11.5-14.5); WHITE BLOOD COUNT 9.4 10^3/uL (4.0-10.0)
[2018-01-30 06:25] LABS: ALBUMIN 2.9 GM/DL (3.2-5.2); ANION GAP 11 MEQ/L (8-16); BLOOD UREA NITROGEN 71 MG/DL (7-18); CALCIUM LEVEL 8.6 MG/DL (8.5-10.1); CARBON DIOXIDE LEVEL 20 MEQ/L (21-32); CHLORIDE LEVEL 110 MEQ/L (98-107); CREATININE FOR GFR 3.79 MG/DL (0.70-1.30); GLOMERULAR FILTRATION RATE 18.1 (>56); GLUCOSE, FASTING 172 MG/DL (70-100); MAGNESIUM LEVEL 2.4 MG/DL (1.8-2.4); PHOSPHORUS LEVEL 6.1 MG/DL (2.5-4.9); SODIUM LEVEL 141 MEQ/L (136-145)
[2018-01-30 06:28] LABS: POTASSIUM SERUM 5.3 MEQ/L (3.5-5.1)
[2018-01-30] MEDS: ADVAIR HFA 230/21MCG INHALER INH ×2 (07:44→19:49)
[2018-01-30] MEDS: HumaLOG INSULIN (NovoLOG) PER UNIT SC ×4 (08:42→21:00)
[2018-01-30] MEDS: CALCIUM ACETATE 667 MG GELCAP PO ×3 (08:42→18:43)
[2018-01-30] MEDS: SENNA 8.6 MG TAB (SENOKOT) PO (09:00)
[2018-01-30] MEDS: LEVEMIR (INSULIN DETEMIR) 1 UNITS/0.01ML SC ×2 (10:10→22:34)
[2018-01-30] MEDS: HEPARIN SOD (PORCINE) 5000 UNITS/ML VIAL SQ ×2 (10:11→22:33)
[2018-01-30] MEDS: SODIUM BICARBONATE 325 MG TAB PO ×2 (10:12→22:34)
[2018-01-30] MEDS: FOLIC ACID 1 MG TAB PO (10:12)
[2018-01-30] MEDS: MIRALAX *UNIT DOSE* 17GM PACKET PO (10:12)
[2018-01-30] MEDS: FERROUS SULFATE 325MG TAB PO (10:12)
[2018-01-30] MEDS: cloNIDine 0.1 MG TAB PO ×2 (10:13→22:35)
[2018-01-30] MEDS: SENOKOT S TAB PO ×2 (10:14→21:00)
[2018-01-30] MEDS: CEFTAROLINE FOSAMIL 300 MG in D5W 50 ML IV ×2 (10:14→22:33)
[2018-01-30] MEDS: EUCERIN 120GM CREAM TOP ×2 (10:15→21:00)
[2018-01-30] MEDS: DARBEPOETIN 100 MCG/0.5 ML *NON-DIALYSIS* SYRINGE (J0881) SC (11:18)
[2018-01-30 11:40] LABS: CREATININE, SERUM 3.8 MG/DL (0.6-1.3); TOTAL VOLUME, URINE 2200 ML
[2018-01-30 12:20] LABS: CREATININE CLEARANCE, URINE 20.8 ML/MIN (85-125); CREATININE, URINE 51.8 MG/DL
[2018-01-30 14:14] LABS: HEPATITIS B CORE ANTIBODY IGG Negative (Negative)
[2018-01-31] MEDS: PERCOCET 5MG/325MG TAB PO ×2 (05:04→09:14)
[2018-01-31] MEDS: SODIUM CHLORIDE 0.9% INJ 10 ML SYR IV ×2 (05:05→18:15)
[2018-01-31 05:49] LABS: HEMATOCRIT 29.2 % (42.0-52.0); HEMOGLOBIN 9.3 g/dl (14.0-18.0); MEAN CORPUSCULAR HEMOGLOBIN 29.2 pg (27.0-33.0); MEAN CORPUSCULAR HGB CONC 31.8 g/dl (32.0-36.5); MEAN CORPUSCULAR VOLUME 91.5 fl (80.0-96.0); PLATELET COUNT, AUTOMATED 193 10^3/uL (150-450); RED BLOOD COUNT 3.19 10^6/uL (4.30-6.10); RED CELL DISTRIBUTION WIDTH 16.7 % (11.5-14.5); WHITE BLOOD COUNT 8.9 10^3/uL (4.0-10.0)
[2018-01-31 06:31] LABS: ALBUMIN 2.7 GM/DL (3.2-5.2); ANION GAP 10 MEQ/L (8-16); BLOOD UREA NITROGEN 82 MG/DL (7-18); CALCIUM LEVEL 8.5 MG/DL (8.5-10.1); CARBON DIOXIDE LEVEL 20 MEQ/L (21-32); CHLORIDE LEVEL 112 MEQ/L (98-107); CREATININE FOR GFR 3.78 MG/DL (0.70-1.30); GLOMERULAR FILTRATION RATE 18.2 (>56); GLUCOSE, FASTING 151 MG/DL (70-100); MAGNESIUM LEVEL 2.5 MG/DL (1.8-2.4); PHOSPHORUS LEVEL 6.3 MG/DL (2.5-4.9); SODIUM LEVEL 142 MEQ/L (136-145)
[2018-01-31 06:44] LABS: POTASSIUM SERUM 5.5 MEQ/L (3.5-5.1)
[2018-01-31] MEDS: ADVAIR HFA 230/21MCG INHALER INH ×2 (07:13→19:54)
[2018-01-31] MEDS: CALCIUM ACETATE 667 MG GELCAP PO ×3 (07:30→18:14)
[2018-01-31] MEDS: MORPHINE 30 MG TAB **MSIR PO (09:13)
[2018-01-31] MEDS: HumaLOG INSULIN (NovoLOG) PER UNIT SC ×4 (10:01→21:00)
[2018-01-31] MEDS: CEFTAROLINE FOSAMIL 300 MG in D5W 50 ML IV ×2 (10:01→21:51)
[2018-01-31] MEDS: SOD POLYSTYRENE SULFONATE SUSP 15 GM/60 ML UD PO (10:01)
[2018-01-31] MEDS: SODIUM BICARBONATE 325 MG TAB PO ×2 (10:02→21:49)
[2018-01-31] MEDS: HEPARIN SOD (PORCINE) 5000 UNITS/ML VIAL SQ ×2 (10:02→21:51)
[2018-01-31] MEDS: SENOKOT S TAB PO ×2 (10:02→21:50)
[2018-01-31] MEDS: SENNA 8.6 MG TAB (SENOKOT) PO (10:02)
[2018-01-31] MEDS: LEVEMIR (INSULIN DETEMIR) 1 UNITS/0.01ML SC ×2 (10:02→21:51)
[2018-01-31] MEDS: FOLIC ACID 1 MG TAB PO (10:03)
[2018-01-31] MEDS: cloNIDine 0.1 MG TAB PO ×2 (10:03→21:50)
[2018-01-31] MEDS: EUCERIN 120GM CREAM TOP ×2 (10:03→21:00)
[2018-01-31] MEDS: FERROUS SULFATE 325MG TAB PO (10:03)
[2018-01-31] MEDS: MIRALAX *UNIT DOSE* 17GM PACKET PO (10:03)
[2018-01-31 12:13] LABS: BEDSIDE GLUCOSE 135 MG/DL (70-105)
[2018-01-31 12:13] LABS: BEDSIDE GLUCOSE 308 MG/DL (70-105)
[2018-01-31 12:13] LABS: BEDSIDE GLUCOSE 169 MG/DL (70-105)
[2018-01-31 12:15] LABS: BEDSIDE GLUCOSE 120 MG/DL (70-105)
[2018-01-31 12:15] LABS: BEDSIDE GLUCOSE 241 MG/DL (70-105)
[2018-01-31 12:15] LABS: BEDSIDE GLUCOSE 149 MG/DL (70-105)
[2018-01-31 12:15] LABS: BEDSIDE GLUCOSE 211 MG/DL (70-105)
[2018-01-31 12:15] LABS: BEDSIDE GLUCOSE 192 MG/DL (70-105)
[2018-01-31 12:15] LABS: BEDSIDE GLUCOSE 171 MG/DL (70-105)
[2018-01-31 12:16] LABS: BEDSIDE GLUCOSE 224 MG/DL (70-105)
[2018-01-31 12:16] LABS: BEDSIDE GLUCOSE 154 MG/DL (70-105)
[2018-01-31 12:16] LABS: BEDSIDE GLUCOSE 163 MG/DL (70-105)
[2018-01-31] MEDS ORDERED: PILL CUTTER/CRUSHER XX (14:45)
[2018-01-31 22:07] LABS: BEDSIDE GLUCOSE 114 MG/DL (70-105)
[2018-01-31 22:08] LABS: BEDSIDE GLUCOSE 149 MG/DL (70-105)
[2018-01-31 22:08] LABS: BEDSIDE GLUCOSE 127 MG/DL (70-105)
[2018-02-01] MEDS: SODIUM CHLORIDE 0.9% INJ 10 ML SYR IV ×3 (05:53→18:00)
[2018-02-01 06:19] LABS: HEMATOCRIT 30.1 % (42.0-52.0); HEMOGLOBIN 9.6 g/dl (14.0-18.0); MEAN CORPUSCULAR HEMOGLOBIN 29.4 pg (27.0-33.0); MEAN CORPUSCULAR HGB CONC 31.9 g/dl (32.0-36.5); PLATELET COUNT, AUTOMATED 206 10^3/uL (150-450); RED BLOOD COUNT 3.27 10^6/uL (4.30-6.10); RED CELL DISTRIBUTION WIDTH 16.8 % (11.5-14.5); WHITE BLOOD COUNT 7.1 10^3/uL (4.0-10.0)
[2018-02-01 06:36] LABS: ALBUMIN 2.8 GM/DL (3.2-5.2); ANION GAP 8 MEQ/L (8-16); BLOOD UREA NITROGEN 84 MG/DL (7-18); C REACTIVE PROTEIN QUANTITATIV 1.69 MG/DL (0.00-0.30); CALCIUM LEVEL 8.6 MG/DL (8.5-10.1); CARBON DIOXIDE LEVEL 23 MEQ/L (21-32); CHLORIDE LEVEL 111 MEQ/L (98-107); CREATININE FOR GFR 3.75 MG/DL (0.70-1.30); GLOMERULAR FILTRATION RATE 18.3 (>56); GLUCOSE, FASTING 124 MG/DL (70-100); MAGNESIUM LEVEL 2.5 MG/DL (1.8-2.4); PHOSPHORUS LEVEL 6.6 MG/DL (2.5-4.9); SODIUM LEVEL 142 MEQ/L (136-145)
[2018-02-01 06:37] LABS: POTASSIUM SERUM 5.3 MEQ/L (3.5-5.1)
[2018-02-01] MEDS: ADVAIR HFA 230/21MCG INHALER INH ×2 (07:50→19:29)
[2018-02-01] MEDS: SODIUM BICARBONATE 325 MG TAB PO ×2 (08:59→20:36)
[2018-02-01] MEDS: LEVEMIR (INSULIN DETEMIR) 1 UNITS/0.01ML SC ×2 (08:59→20:34)
[2018-02-01] MEDS: CALCIUM ACETATE 667 MG GELCAP PO ×3 (09:00→18:00)
[2018-02-01] MEDS: FOLIC ACID 1 MG TAB PO (09:01)
[2018-02-01] MEDS: SENOKOT S TAB PO ×2 (09:01→20:35)
[2018-02-01] MEDS: SENNA 8.6 MG TAB (SENOKOT) PO (09:01)
[2018-02-01] MEDS: HumaLOG INSULIN (NovoLOG) PER UNIT SC ×4 (09:02→20:37)
[2018-02-01] MEDS: FERROUS SULFATE 325MG TAB PO (09:02)
[2018-02-01] MEDS: cloNIDine 0.1 MG TAB PO ×2 (09:02→20:37)
[2018-02-01] MEDS: HEPARIN SOD (PORCINE) 5000 UNITS/ML VIAL SQ ×2 (09:02→20:35)
[2018-02-01] MEDS: EUCERIN 120GM CREAM TOP ×2 (09:03→20:38)
[2018-02-01] MEDS: MIRALAX *UNIT DOSE* 17GM PACKET PO (09:03)
[2018-02-01] MEDS: CEFTAROLINE FOSAMIL 300 MG in D5W 50 ML IV ×2 (09:04→20:35)
[2018-02-01 20:01] LABS: BEDSIDE GLUCOSE 125 MG/DL (70-105)
[2018-02-01 20:01] LABS: BEDSIDE GLUCOSE 276 MG/DL (70-105)
[2018-02-01 23:02] LABS: BEDSIDE GLUCOSE 161 MG/DL (70-105)
[2018-02-02] MEDS: SODIUM CHLORIDE 0.9% INJ 10 ML SYR IV ×3 (05:49→17:44)
[2018-02-02] MEDS: ADVAIR HFA 230/21MCG INHALER INH ×2 (07:36→19:44)
[2018-02-02] MEDS: LEVEMIR (INSULIN DETEMIR) 1 UNITS/0.01ML SC ×2 (08:11→20:17)
[2018-02-02] MEDS: MIRALAX *UNIT DOSE* 17GM PACKET PO (08:12)
[2018-02-02] MEDS: HumaLOG INSULIN (NovoLOG) PER UNIT SC ×4 (08:12→20:28)
[2018-02-02] MEDS: CEFTAROLINE FOSAMIL 300 MG in D5W 50 ML IV ×2 (08:12→20:17)
[2018-02-02] MEDS: FOLIC ACID 1 MG TAB PO (08:13)
[2018-02-02] MEDS: FERROUS SULFATE 325MG TAB PO (08:13)
[2018-02-02] MEDS: SENNA 8.6 MG TAB (SENOKOT) PO (08:13)
[2018-02-02] MEDS: CALCIUM ACETATE 667 MG GELCAP PO ×3 (08:14→17:43)
[2018-02-02] MEDS: SENOKOT S TAB PO ×2 (08:14→20:16)
[2018-02-02] MEDS: SODIUM BICARBONATE 325 MG TAB PO ×2 (08:14→20:17)
[2018-02-02] MEDS: cloNIDine 0.1 MG TAB PO ×2 (08:14→20:16)
[2018-02-02] MEDS: EUCERIN 120GM CREAM TOP ×2 (08:17→20:17)
[2018-02-02] MEDS: HEPARIN SOD (PORCINE) 5000 UNITS/ML VIAL SQ ×2 (08:17→20:16)
[2018-02-02] MEDS: ACETAMINOPHEN TAB 650MG DOSE (2X325MG) PO (11:57)
[2018-02-02] MEDS: METOCLOPRAMIDE 5 MG TAB PO (13:58)
[2018-02-02] MEDS: hydroCHLOROthiazide 12.5 MG CAPSULE PO (13:59)
[2018-02-02] MEDS: (RENVELA) SEVELAMER **CARBONate** 800 MG TAB PO (17:42)
[2018-02-03 02:55] LABS: BEDSIDE GLUCOSE 163 MG/DL (70-105)
[2018-02-03 02:55] LABS: BEDSIDE GLUCOSE 188 MG/DL (70-105)
[2018-02-03 02:55] LABS: BEDSIDE GLUCOSE 169 MG/DL (70-105)
[2018-02-03 02:55] LABS: BEDSIDE GLUCOSE 191 MG/DL (70-105)
[2018-02-03] MEDS: SODIUM CHLORIDE 0.9% INJ 10 ML SYR IV ×3 (05:39→23:43)
[2018-02-03 05:50] LABS: HEMATOCRIT 31.6 % (42.0-52.0); MEAN CORPUSCULAR HEMOGLOBIN 29.3 pg (27.0-33.0); MEAN CORPUSCULAR HGB CONC 31.6 g/dl (32.0-36.5); MEAN CORPUSCULAR VOLUME 92.7 fl (80.0-96.0); PLATELET COUNT, AUTOMATED 200 10^3/uL (150-450); RED BLOOD COUNT 3.41 10^6/uL (4.30-6.10); WHITE BLOOD COUNT 8.4 10^3/uL (4.0-10.0)
[2018-02-03 06:41] LABS: ALBUMIN 2.8 GM/DL (3.2-5.2); ANION GAP 9 MEQ/L (8-16); BLOOD UREA NITROGEN 78 MG/DL (7-18); CALCIUM LEVEL 9.2 MG/DL (8.5-10.1); CARBON DIOXIDE LEVEL 20 MEQ/L (21-32); CHLORIDE LEVEL 113 MEQ/L (98-107); CREATININE FOR GFR 3.59 MG/DL (0.70-1.30); GLOMERULAR FILTRATION RATE 19.3 (>56); GLUCOSE, FASTING 127 MG/DL (70-100); MAGNESIUM LEVEL 2.3 MG/DL (1.8-2.4); PHOSPHORUS LEVEL 5.6 MG/DL (2.5-4.9); SODIUM LEVEL 142 MEQ/L (136-145)
[2018-02-03 06:44] LABS: POTASSIUM SERUM 5.3 MEQ/L (3.5-5.1)
[2018-02-03] MEDS: ADVAIR HFA 230/21MCG INHALER INH ×2 (07:14→20:00)
[2018-02-03] MEDS: HumaLOG INSULIN (NovoLOG) PER UNIT SC ×4 (08:58→20:14)
[2018-02-03] MEDS: LEVEMIR (INSULIN DETEMIR) 1 UNITS/0.01ML SC ×2 (08:59→21:49)
[2018-02-03] MEDS: MIRALAX *UNIT DOSE* 17GM PACKET PO (08:59)
[2018-02-03] MEDS: cloNIDine 0.1 MG TAB PO ×2 (09:00→21:53)
[2018-02-03] MEDS: SENOKOT S TAB PO ×2 (09:00→21:53)
[2018-02-03] MEDS: SENNA 8.6 MG TAB (SENOKOT) PO (09:00)
[2018-02-03] MEDS: hydroCHLOROthiazide 12.5 MG CAPSULE PO (09:00)
[2018-02-03] MEDS: CEFTAROLINE FOSAMIL 300 MG in D5W 50 ML IV ×2 (09:00→21:49)
[2018-02-03] MEDS: FERROUS SULFATE 325MG TAB PO (09:00)
[2018-02-03] MEDS: CALCIUM ACETATE 667 MG GELCAP PO ×3 (09:01→17:58)
[2018-02-03] MEDS: FOLIC ACID 1 MG TAB PO (09:01)
[2018-02-03] MEDS: (RENVELA) SEVELAMER **CARBONate** 800 MG TAB PO ×3 (09:01→17:58)
[2018-02-03] MEDS: SODIUM BICARBONATE 325 MG TAB PO ×2 (09:02→21:50)
[2018-02-03] MEDS: EUCERIN 120GM CREAM TOP ×2 (09:02→21:56)
[2018-02-03] MEDS: HEPARIN SOD (PORCINE) 5000 UNITS/ML VIAL SQ ×2 (12:21→21:49)
[2018-02-04] MEDS: SODIUM CHLORIDE 0.9% INJ 10 ML SYR IV (06:16)
[2018-02-04 06:29] LABS: HEMOGLOBIN 10.4 g/dl (14.0-18.0); MEAN CORPUSCULAR HEMOGLOBIN 29.3 pg (27.0-33.0); MEAN CORPUSCULAR HGB CONC 31.5 g/dl (32.0-36.5); PLATELET COUNT, AUTOMATED 212 10^3/uL (150-450); RED BLOOD COUNT 3.55 10^6/uL (4.30-6.10); RED CELL DISTRIBUTION WIDTH 16.8 % (11.5-14.5); WHITE BLOOD COUNT 8.2 10^3/uL (4.0-10.0)
[2018-02-04 07:11] LABS: ANION GAP 9 MEQ/L (8-16); BLOOD UREA NITROGEN 79 MG/DL (7-18); CALCIUM LEVEL 9.1 MG/DL (8.5-10.1); CARBON DIOXIDE LEVEL 21 MEQ/L (21-32); CHLORIDE LEVEL 111 MEQ/L (98-107); CREATININE FOR GFR 3.45 MG/DL (0.70-1.30); GLOMERULAR FILTRATION RATE 20.2 (>56); GLUCOSE, FASTING 160 MG/DL (70-100); MAGNESIUM LEVEL 2.2 MG/DL (1.8-2.4); POTASSIUM SERUM 4.8 MEQ/L (3.5-5.1); SODIUM LEVEL 141 MEQ/L (136-145)
[2018-02-04] MEDS: ADVAIR HFA 230/21MCG INHALER INH (07:31)
[2018-02-04] MEDS: HumaLOG INSULIN (NovoLOG) PER UNIT SC ×2 (08:48→13:42)
[2018-02-04] MEDS: LEVEMIR (INSULIN DETEMIR) 1 UNITS/0.01ML SC (08:49)
[2018-02-04] MEDS: CALCIUM ACETATE 667 MG GELCAP PO ×2 (08:49→13:43)
[2018-02-04] MEDS: FOLIC ACID 1 MG TAB PO (08:50)
[2018-02-04] MEDS: cloNIDine 0.1 MG TAB PO (08:50)
[2018-02-04] MEDS: SENNA 8.6 MG TAB (SENOKOT) PO (08:50)
[2018-02-04] MEDS: FERROUS SULFATE 325MG TAB PO (08:50)
[2018-02-04] MEDS: hydroCHLOROthiazide 12.5 MG CAPSULE PO (08:50)
[2018-02-04] MEDS: SODIUM BICARBONATE 325 MG TAB PO (08:51)
[2018-02-04] MEDS: (RENVELA) SEVELAMER **CARBONate** 800 MG TAB PO ×2 (08:51→13:42)
[2018-02-04] MEDS: HEPARIN SOD (PORCINE) 5000 UNITS/ML VIAL SQ (08:52)
[2018-02-04] MEDS: CEFTAROLINE FOSAMIL 300 MG in D5W 50 ML IV (08:52)
[2018-02-04] MEDS: MIRALAX *UNIT DOSE* 17GM PACKET PO (08:53)
[2018-02-04] MEDS: SENOKOT S TAB PO (08:53)
[2018-02-04] MEDS: EUCERIN 120GM CREAM TOP (09:01)
[2018-02-04] MEDS: PERCOCET 5MG/325MG TAB PO (11:13)
[2018-02-05 13:00] LABS: BEDSIDE GLUCOSE 213 MG/DL (70-105)
[2018-02-05 13:00] LABS: BEDSIDE GLUCOSE 137 MG/DL (70-105)
[2018-02-05 13:02] LABS: BEDSIDE GLUCOSE 289 MG/DL (70-105)
[2018-02-05 13:02] LABS: BEDSIDE GLUCOSE 140 MG/DL (70-105)
== END 2018-02-04 15:25 | disposition home health service (06) | DRG 493 ==
LOC: M ED INP 01-11 02:23 → M MS5PR 01-11 03:26 → M ED 19:05
PROC: 0QBG0ZZ Excision of Right Tibia, Open Approach (ICD-10-PCS; principal; 2018-01-12 11:19)
PROC: 0KCS0ZZ Extirpation of Matter from Right Lower Leg Muscle, Open Approach (ICD-10-PCS; 2018-01-12 11:19)
PROC: 02HV33Z Insertion of Infusion Device into Superior Vena Cava, Percutaneous Approach (ICD-10-PCS; 2018-01-12 11:19)
PROC: 30233N1 Transfusion of Nonautologous Red Blood Cells into Peripheral Vein, Percutaneous Approach (ICD-10-PCS; 2018-01-12 11:19)
PROC: 30233J1 Transfusion of Nonautologous Serum Albumin into Peripheral Vein, Percutaneous Approach (ICD-10-PCS; 2018-01-12 11:19)
DX: M86.161 Other acute osteomyelitis, right tibia and fibula (principal); L02.415 Cutaneous abscess of right lower limb; N17.9 Acute kidney failure, unspecified; N18.4 Chronic kidney disease, stage 4 (severe); D62 Acute posthemorrhagic anemia; E11.9 Type 2 diabetes mellitus without complications; E87.5 Hyperkalemia; I12.9 Hypertensive chronic kidney disease with stage 1 through stage 4 chronic kidney disease, or unspecified chronic kidney disease; E78.5 Hyperlipidemia, unspecified; Z79.899 Other long term (current) drug therapy; Z79.4 Long term (current) use of insulin; Z91.018 Allergy to other foods; Z88.6 Allergy status to analgesic agent; Z90.49 Acquired absence of other specified parts of digestive tract

== ENCOUNTER → 2018-02-10 | Outpatient (REF) | payer MEDICARE, MEDICAID ==
[2018-02-10 18:26] LABS: BASO % 0.3 % (0.0-1.0); EOS # 0.2 10^3/uL (0.0-0.50); EOS % 3.3 % (0.0-3.0); HEMOGLOBIN 11.2 g/dl (14.0-18.0); IMMATURE GRANULOCYTE % 0.6 % (0-3.0); LYMPH # 1.6 10^3/uL (1.5-4.5); LYMPH % 22.7 % (24.0-44.0); MEAN CORPUSCULAR HEMOGLOBIN 28.8 pg (27.0-33.0); MONO # 0.6 10^3/uL (0.0-0.8); NEUTROPHILS # 4.7 10^3/uL (1.8-7.7); NEUTROPHILS % 65.1 % (36.0-66.0); PLATELET COUNT, AUTOMATED 174 10^3/uL (150-450); RED BLOOD COUNT 3.89 10^6/uL (4.30-6.10); RED CELL DISTRIBUTION WIDTH 15.6 % (11.5-14.5); WHITE BLOOD COUNT 7.2 10^3/uL (4.0-10.0)
[2018-02-10 18:56] LABS: ANION GAP 7 MEQ/L (8-16); BLOOD UREA NITROGEN 54 MG/DL (7-18); C REACTIVE PROTEIN QUANTITATIV 1.86 MG/DL (0.00-0.30); CALCIUM LEVEL 8.8 MG/DL (8.5-10.1); CARBON DIOXIDE LEVEL 26 MEQ/L (21-32); CHLORIDE LEVEL 105 MEQ/L (98-107); CREATININE FOR GFR 3.21 MG/DL (0.70-1.30); GLOMERULAR FILTRATION RATE 21.9 (>56); GLUCOSE, FASTING 261 MG/DL (70-100); SODIUM LEVEL 138 MEQ/L (136-145)
[2018-02-10 19:02] LABS: ERYTHROCYTE SEDIMENTATION RATE 2 mm/hr (0-20)
== END ==
LOC: M LAB REF 17:10
DX: L03.115 Cellulitis of right lower limb (principal)
CPT/HCPCS: 80048

== ENCOUNTER → 2018-02-17 | Outpatient (REF) | payer MEDICARE, MEDICAID ==
[2018-02-17 19:47] LABS: BASO % 0.5 % (0.0-1.0); EOS # 0.2 10^3/uL (0.0-0.50); HEMATOCRIT 38.6 % (42.0-52.0); HEMOGLOBIN 12.2 g/dl (14.0-18.0); IMMATURE GRANULOCYTE % 0.3 % (0-3.0); LYMPH # 2.1 10^3/uL (1.5-4.5); LYMPH % 27.5 % (24.0-44.0); MEAN CORPUSCULAR HEMOGLOBIN 28.3 pg (27.0-33.0); MEAN CORPUSCULAR HGB CONC 31.6 g/dl (32.0-36.5); MEAN CORPUSCULAR VOLUME 89.6 fl (80.0-96.0); MONO # 0.6 10^3/uL (0.0-0.8); MONO % 8.2 % (0.0-5.0); NEUTROPHILS # 4.6 10^3/uL (1.8-7.7); NEUTROPHILS % 60.5 % (36.0-66.0); PLATELET COUNT, AUTOMATED 191 10^3/uL (150-450); RED BLOOD COUNT 4.31 10^6/uL (4.30-6.10); RED CELL DISTRIBUTION WIDTH 13.9 % (11.5-14.5); WHITE BLOOD COUNT 7.6 10^3/uL (4.0-10.0)
[2018-02-17 19:49] LABS: ANION GAP 7 MEQ/L (8-16); BLOOD UREA NITROGEN 52 MG/DL (7-18); CALCIUM LEVEL 8.6 MG/DL (8.5-10.1); CARBON DIOXIDE LEVEL 25 MEQ/L (21-32); CHLORIDE LEVEL 109 MEQ/L (98-107); GLOMERULAR FILTRATION RATE 19.2 (>56); GLUCOSE, FASTING 155 MG/DL (70-100); POTASSIUM SERUM 4.6 MEQ/L (3.5-5.1); SODIUM LEVEL 141 MEQ/L (136-145)
[2018-02-17 20:36] LABS: ERYTHROCYTE SEDIMENTATION RATE 80 mm/hr (0-20)
== END ==
LOC: M LAB REF 18:32
DX: L02.415 Cutaneous abscess of right lower limb (principal); E66.9 Obesity, unspecified
CPT/HCPCS: 80048

== ENCOUNTER → 2018-02-24 | Outpatient (REF) | payer MEDICARE, MEDICAID ==
[2018-02-24 14:28] LABS: BASO % 0.1 % (0.0-1.0); EOS # 0.2 10^3/uL (0.0-0.50); EOS % 2.2 % (0.0-3.0); HEMATOCRIT 32.9 % (42.0-52.0); HEMOGLOBIN 10.6 g/dl (13.5-17.5); IMMATURE GRANULOCYTE % 0.3 % (0-3.0); LYMPH # 1.4 10^3/uL (1.5-4.5); LYMPH % 20.6 % (24.0-44.0); MEAN CORPUSCULAR HEMOGLOBIN 28.4 pg (27.0-33.0); MEAN CORPUSCULAR HGB CONC 32.2 g/dl (32.0-36.5); MEAN CORPUSCULAR VOLUME 88.2 fl (80.0-96.0); MONO # 0.6 10^3/uL (0.0-0.8); MONO % 8.5 % (0.0-5.0); NEUTROPHILS # 4.6 10^3/uL (1.8-7.7); NEUTROPHILS % 68.3 % (36.0-66.0); PLATELET COUNT, AUTOMATED 202 10^3/uL (150-450); RED BLOOD COUNT 3.73 10^6/uL (4.30-6.10); RED CELL DISTRIBUTION WIDTH 13.4 % (11.5-14.5); WHITE BLOOD COUNT 6.8 10^3/uL (4.0-10.0)
[2018-02-24 14:39] LABS: ANION GAP 6 MEQ/L (8-16); BLOOD UREA NITROGEN 40 MG/DL (7-18); C REACTIVE PROTEIN QUANTITATIV 7.13 MG/DL (0.00-0.30); CALCIUM LEVEL 8.1 MG/DL (8.5-10.1); CARBON DIOXIDE LEVEL 22 MEQ/L (21-32); CHLORIDE LEVEL 113 MEQ/L (98-107); CREATININE FOR GFR 2.85 MG/DL (0.70-1.30); GLOMERULAR FILTRATION RATE 25.1 (>56); GLUCOSE, FASTING 195 MG/DL (70-100); POTASSIUM SERUM 4.8 MEQ/L (3.5-5.1); SODIUM LEVEL 141 MEQ/L (136-145)
[2018-02-24 15:21] LABS: ERYTHROCYTE SEDIMENTATION RATE 108 mm/hr (0-20)
== END ==
LOC: M LAB REF 14:01
DX: L97.909 Non-pressure chronic ulcer of unspecified part of unspecified lower leg with unspecified severity (principal)
CPT/HCPCS: 80048

== ENCOUNTER → 2018-04-08 | Outpatient (REF) | payer MEDICARE, MEDICAID ==
[2018-04-08 15:56] LABS: ANION GAP 5 MEQ/L (8-16); BLOOD UREA NITROGEN 34 MG/DL (7-18); C REACTIVE PROTEIN QUANTITATIV 1.93 MG/DL (0.00-0.30); CALCIUM LEVEL 8.1 MG/DL (8.5-10.1); CARBON DIOXIDE LEVEL 24 MEQ/L (21-32); CHLORIDE LEVEL 115 MEQ/L (98-107); CREATININE FOR GFR 2.38 MG/DL (0.70-1.30); GLUCOSE, FASTING 247 MG/DL (70-100); POTASSIUM SERUM 4.5 MEQ/L (3.5-5.1); SODIUM LEVEL 144 MEQ/L (136-145)
[2018-04-08 15:58] LABS: BASO # 0.1 10^3/uL (0.0-0.2); BASO % 0.6 % (0.0-1.0); EOS # 0.2 10^3/uL (0.0-0.50); EOS % 2.7 % (0.0-3.0); HEMATOCRIT 32.4 % (42.0-52.0); HEMOGLOBIN 10.8 g/dl (13.5-17.5); IMMATURE GRANULOCYTE % 0.5 % (0-3.0); LYMPH % 25.8 % (24.0-44.0); MEAN CORPUSCULAR HEMOGLOBIN 28.4 pg (27.0-33.0); MEAN CORPUSCULAR HGB CONC 33.3 g/dl (32.0-36.5); MEAN CORPUSCULAR VOLUME 85.3 fl (80.0-96.0); MONO # 0.6 10^3/uL (0.0-0.8); MONO % 7.3 % (0.0-5.0); NEUTROPHILS # 4.9 10^3/uL (1.8-7.7); NEUTROPHILS % 63.1 % (36.0-66.0); PLATELET COUNT, AUTOMATED 214 10^3/uL (150-450); RED CELL DISTRIBUTION WIDTH 14.1 % (11.5-14.5); WHITE BLOOD COUNT 7.7 10^3/uL (4.0-10.0)
[2018-04-08 18:21] LABS: ERYTHROCYTE SEDIMENTATION RATE 70 mm/hr (0-20)
== END ==
LOC: M SFHCPLAZ 13:28
DX: M86.061 Acute hematogenous osteomyelitis, right tibia and fibula (principal); E11.621 Type 2 diabetes mellitus with foot ulcer
CPT/HCPCS: 80048

== ENCOUNTER → 2018-05-07 | Outpatient (CLI) | payer MEDICARE, MEDICAID ==
[~2018-05-07] MED LIST: ISOVUE-300 61% 50ML VIAL (Q9967) As Ordered; LIDOCAINE 2% MDV 20 ML VIAL As Ordered
== END ==
LOC: M IRPRO 07:25
DX: Z53.8 Procedure and treatment not carried out for other reasons (principal)

== ENCOUNTER → 2019-03-04 | Outpatient (CLI) | payer MEDICAID, MEDICARE ==
[~2019-03-04] MED LIST changes: +ADVA1AER2 IN; +ADVA230A INH; +ALBU17IN INH; +ALBU83IN NEB; +ALBUTEROL INH; +AMLO25TA PO; +APRESOLINE PO; +AUGM500T34 PO; +BACI500O8 TOP; +BASA100I SC; +BAYEKIT XX; +BD L33MI XX; +CALC1CAP PO; +CALC1CAP31 PO; +CARV6.25 PO; +CATA0.2T PO; +CEFD300CAP PO; +CEFT2ADD IV; +CLON-412 PO; +CLONI1TA PO; +CONTMIS XX; +DEMA20TA6 PO; +DILT30TA PO; +EUCECRE3 TOP; +FEBU40TA PO; +FERR1TAB8 PO; +FOLI1TAB11 PO; +FURO40TA2 PO; +GLUC500T PO; +HYDR12CA PO; +IMDU30TA PO; +INSUDET SC; +INSULANT SC; -ISOVUE-300 61% 50ML VIAL (Q9967) As Ordered; +LANTUS INSULIN SC; +LASI40TA OR; +LEVA1TAB2 PO; +LEVE1INJ5 SC; -LIDOCAINE 2% MDV 20 ML VIAL As Ordered; +LISI-538 PO; +LISI20TA5 PO; +MAPA500T2 PO; +METF10004 PO; +METO5TAB2 PO; +MULTCAP PO; +NOVOINJ3 SC; +PAIN325T OR; +PATIENT COMMENT; +PERC5TAB8 OR; +PERCOCET PO; +POTA20TA2 OR; +PRIL20CA OR; +PROTPAK PO; +RENV2TAB PO; +SANT250O8 EX; +SILV50CR TOP; +SODI15SS PO; +SODI325T9 PO; +SODI650T PO; +SPIR-10 PO; +THERTAB30 PO; +TORS20TA2 PO; +TYLE325T5 PO; +TYLE500T78 PO; +VELT1POW PO; +VENTAER INH; +VIT A PO; +VITA1TAB23 PO; +VITA500C OR; +VITA500C24 PO; +VITA500T PO; +ZINC220C OR; +ZINC220C3 PO; +ZINC220T PO; +ZYLO300T6 PO; +ZYVO1TAB PO; +[UNRECOGNIZED DRUG - CODE] XX; +heparin IV; +hygroton PO; +saline IV
--- NOTE | 2019-03-04 11:26 | REP ---
RIGHT LOWER EXTREMITY DUPLEX DOPPLER VENOUS ULTRASOUND WITH EVALUATION FOR VENOUS REFLUX: Real-time compression and duplex Doppler interrogation of right lower extremity deep venous system is performed. Right common femoral, superficial femoral and popliteal veins are fully compressible with transducer pressure and demonstrate normal spontaneous and phasic flow without evidence of deep venous thrombosis. Evaluation for venous reflex in the right lower extremity demonstrates no evidence of reflux in any of the deep veins or superficial veins. There is an anterior accessory greater saphenous vein present without reflux. There is no reflux in any portion of the greater saphenous vein, which measures 5 mm at the saphenofemoral junction in the mid thigh region and 4 mm at the knee. There is no reflux in the lesser saphenous vein which measures 6 mm. IMPRESSION: No evidence of venous reflux involving the deep veins, greater saphenous vein or lesser saphenous vein. Electronically Signed by Jayden Cox MD 03/04/2019 03:20 P
== END ==
LOC: M RAD 09:48
PROVIDERS: ATTEND Surgery Vascular Surgery
DX: I87.2 Venous insufficiency (chronic) (peripheral) (principal)

== ENCOUNTER 2019-03-27 15:50 | Emergency (ER) | payer MEDICARE, MEDICAID ==
[~2019-03-27] VITALS: Ht 190.5 cm; Wt 100.0 kg
[~2019-03-27 15:50] MED LIST changes: +BAYE1MIS XX; -BAYEKIT XX
[2019-03-27] MEDS ORDERED: methylPREDNISolone INJ 125 MG/2 ML VIAL (J2930) IV ONE (16:00)
[2019-03-27] MEDS ORDERED: diphenhydrAMINE INJ 50MG/ML VIAL (J1200) IV STA (16:00)
[2019-03-27] MEDS ORDERED: IPRATROPIUM 0.5MG/ALBUTEROL 2.5MG INH SOL UD 3ML (DUONEB)(J7620) NEB PRN (16:00)
[2019-03-27] MEDS ORDERED: FAMOTIDINE INJ 20MG/2ML VIAL (S0028) IVP ONE (16:00)
[2019-03-27] MEDS ORDERED: NS 1,000 ML IV ONE (16:00)
--- NOTE | 2019-03-27 16:41 | REP ---
Chest one-view HISTORY: Cough Comparison: 10/31/2018 The lungs are clear. The heart is normal in size. The pulmonary vasculature is normal in appearance. Impression: No acute disease. Electronically Signed by Jhonathan Mera MD 03/27/2019 04:33 P
[2019-03-27] MEDS ORDERED: ONDANSETRON 4MG/2ML VIAL (J2405) IV ONE (17:00)
[2019-03-27] MEDS ORDERED: ONDANSETRON 4 MG ORAL DISINTEGRATING TAB (Q0162 PER 1MG) PO ONE (17:00)
--- NOTE | 2019-03-27 17:57 | REP ---
CT BRAIN WITHOUT IV CONTRAST: CT brain performed without IV contrast. There is mild diffuse atrophy. There is no midline shift or mass effect. Cox/white differentiation is relatively well maintained. There is no acute intracranial hemorrhage or extra-axial fluid collection. Bone window examination demonstrates no skull fracture. Visualized mastoid air cells and paranasal sinuses are clear. IMPRESSION: Mild atrophy. No acute hemorrhage or skull fracture. Electronically Signed by Jayden Cox MD 03/28/2019 02:59 P
--- NOTE | 2019-03-27 18:10 | REP ---
CT THORACIC SPINE: CT thoracic spine was performed in the axial plane. Sagittal and coronal reconstruction images are performed. There is no compression fracture or malalignment with normal thoracic kyphosis. Minor diffuse spurring is noted. There is minimal disc space narrowing at several levels. There is minimal curvature towards the right. No adjacent soft-tissue abnormality is seen. IMPRESSION: No evidence of fracture or dislocation. Electronically Signed by Jayden Cox MD 03/28/2019 02:59 P
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
[2019-03-27] MEDS ORDERED: ACETAMINOPHEN 500 MG TAB PO ONE (21:30)
[2019-03-27 21:50] VITALS: BP 152/82
--- NOTE | 2019-03-30 15:31 | ED PDOC ---
Post-Departure Follow-Up nataliya duong faxed formal report of ct s spine for fu Anna Marie Cook MD March 30, 2019 15:31
--- NOTE | 2019-03-30 22:04 | ECGEPIP ---
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
== END 2019-03-27 22:01 | disposition home or self-care (01) ==
LOC: EDSEX 15:50 → M ED 15:50 → EDBD 15:50 → M ED 22:01
DX: S16.1XXA Strain of muscle, fascia and tendon at neck level, initial encounter (principal); S29.011A Strain of muscle and tendon of front wall of thorax, initial encounter; V49.50XA Passenger injured in collision with unspecified motor vehicles in traffic accident, initial encounter; Y92.410 Unspecified street and highway as the place of occurrence of the external cause; I87.2 Venous insufficiency (chronic) (peripheral); F17.200 Nicotine dependence, unspecified, uncomplicated
CPT/HCPCS: 70450; 71045; 72125; 72128; 72141; 93005; 99284; Q0162

== ENCOUNTER → 2019-05-06 | Outpatient (CLI) | payer MEDICAID, MEDICARE ==
--- NOTE | 2019-05-07 08:42 | REP ---
Bilateral lower extremity arterial Doppler ultrasound: History: Peripheral vascular disease. Stent in the right lower extremity. Comparison study October 30, 2018. Findings: Exam quality is inhibited substantially by patient body habitus and insonation characteristics. The ankle brachial indices could not be obtained on either side due to patient wounds as before. The patient reports a stent placed in the right leg approximate 6 months ago. The stent is not visualized by ultrasound today. Monophasic flow is seen bilaterally throughout most of the lower extremities and cyst advanced atherosclerotic plaquing is observed. The distal aorta at and the distal posterior tibial artery on the left could not be seen. Proximal SFA stenosis is again noted on the left. Right lower extremity arterial Doppler velocity chart: Right common iliac artery 197 cm/S External iliac artery 204 CF A 161 Profunda 168 Proximal SFA 208 Mid SFA to 11:24 Distal SFA 177 Popliteal 139 Proximal AT A 99 Tibioperoneal trunk 94 Proximal ELECTRIC FRYING PAN REPAIRER 127 Distal ELECTRIC FRYING PAN REPAIRER 68 Distal AT A 60 Left lower extremity arterial Doppler velocity chart: Left BEAR 177 cm/S D I A 180 CF A 134 eight Profunda 139 Proximal SFA 107/459 Mid SFA 179 Distal SFA 163 Popliteal 122 Proximal AT A 205 Tibioperoneal trunk 100 Proximal ELECTRIC FRYING PAN REPAIRER not seen Distal ELECTRIC FRYING PAN REPAIRER 44 Distal AT A 63 Electronically Signed by Oseas Benitez MD 05/07/2019 08:34 A
== END ==
LOC: M RAD 15:47
PROVIDERS: ATTEND Physician Assistant
DX: I73.9 Peripheral vascular disease, unspecified (principal); Z79.899 Other long term (current) drug therapy

== ENCOUNTER → 2019-07-22 | Outpatient (REF) | payer MEDICARE, MEDICAID ==
[~2019-07-22] MED LIST changes: +ACET-683 PO; +BRONCHW PO; +CALC667T2 PO; +CARV12.5 PO; -FEBU40TA PO; +FEBU40TA4 PO; -ZINC220T PO; +ZINC220T6 PO
[2019-07-22 16:57] LABS: ALBUMIN 2.6 GM/DL (3.2-5.2); BILIRUBIN,TOTAL 0.4 MG/DL (0.2-1.0); CREATININE FOR GFR 5.36 MG/DL (0.70-1.30); POTASSIUM SERUM 5.1 MEQ/L (3.5-5.1); TOTAL PROTEIN 6.9 GM/DL (6.4-8.2)
[2019-07-22 17:14] LABS: HEMATOCRIT 31.3 % (42.0-52.0); HEMOGLOBIN 10.2 g/dl (13.5-17.5); MEAN CORPUSCULAR HEMOGLOBIN 28.6 pg (27.0-33.0); MEAN CORPUSCULAR HGB CONC 32.6 g/dl (32.0-36.5); MEAN CORPUSCULAR VOLUME 87.7 fl (80.0-96.0); PLATELET COUNT, AUTOMATED 276 10^3/uL (150-450); RED BLOOD COUNT 3.57 10^6/uL (4.30-6.10); WHITE BLOOD COUNT 8.3 10^3/uL (4.0-10.0)
[2019-07-22 17:20] LABS: HEMOGLOBIN A1c 10.1 %
== END ==
LOC: M LAB REF 16:08
PROVIDERS: ATTEND Surgery
DX: S71.101D Unspecified open wound, right thigh, subsequent encounter (principal)

== ENCOUNTER 2019-07-23 12:53 | Inpatient (IN) | payer MEDICARE, MEDICAID ==
[~2019-07-23] VITALS: Ht 190.5 cm; Wt 126.0 kg
[~2019-07-23 12:53] MED LIST changes: -ACET-683 PO; -BRONCHW PO; -CALC667T2 PO; -CARV12.5 PO
[2019-07-23] MEDS ORDERED: NS 1,000 ML IV SCH (13:18)
[2019-07-23] MEDS ORDERED: LEVE1INJ5 SC (13:34)
[2019-07-23] MEDS ORDERED: BRONCHW PO (13:34)
[2019-07-23] MEDS ORDERED: CARV12.5 PO (13:34)
[2019-07-23] MEDS ORDERED: CALC667T2 PO (13:34)
[2019-07-23] MEDS ORDERED: ADVA230A INH (13:34)
[2019-07-23] MEDS ORDERED: ACET-683 PO (13:34)
[2019-07-23] MEDS ORDERED: FURO40TA2 PO (13:34)
[2019-07-23 13:52] LABS: BASO % 0.3 % (0.0-1.0); EOS # 0.1 10^3/uL (0.0-0.50); EOS % 1.8 % (0.0-3.0); HEMATOCRIT 28.6 % (42.0-52.0); HEMOGLOBIN 9.6 g/dl (13.5-17.5); LYMPH # 1.6 10^3/uL (1.5-4.5); LYMPH % 21.1 % (24.0-44.0); MEAN CORPUSCULAR HEMOGLOBIN 28.9 pg (27.0-33.0); MEAN CORPUSCULAR HGB CONC 33.6 g/dl (32.0-36.5); MEAN CORPUSCULAR VOLUME 86.1 fl (80.0-96.0); MONO # 0.7 10^3/uL (0.0-0.8); MONO % 8.8 % (0.0-5.0); NEUTROPHILS # 5.2 10^3/uL (1.8-7.7); PLATELET COUNT, AUTOMATED 256 10^3/uL (150-450); RED BLOOD COUNT 3.32 10^6/uL (4.30-6.10); WHITE BLOOD COUNT 7.7 10^3/uL (4.0-10.0)
[2019-07-23 14:09] LABS: INR 1.09; PROTHROMBIN TIME 13.8 SECONDS (11.8-14.0)
[2019-07-23 14:10] LABS: PARTIAL THROMBOPLASTIN TIME 38.7 SECONDS (25.0-38.4)
[2019-07-23 14:24] LABS: MAGNESIUM LEVEL 2.3 MG/DL (1.8-2.4); PHOSPHORUS LEVEL 5.2 MG/DL (2.5-4.9)
[2019-07-23 14:24] LABS: ALBUMIN 2.5 GM/DL (3.2-5.2); BILIRUBIN,DIRECT 0.1 MG/DL (0.0-0.2); BILIRUBIN,TOTAL 0.3 MG/DL (0.2-1.0); CALCIUM LEVEL 8.6 MG/DL (8.5-10.1); CREATININE FOR GFR 5.65 MG/DL (0.70-1.30); GLOMERULAR FILTRATION RATE 11.3 (>56); POTASSIUM SERUM 4.4 MEQ/L (3.5-5.1); TOTAL PROTEIN 7.1 GM/DL (6.4-8.2)
[2019-07-23] MEDS ORDERED: ACETAMINOPHEN 500 MG TAB PO PRN (14:30)
[2019-07-23] MEDS ORDERED: GLUCOSE 4 GM CHEW TABLET PO PRN (14:30)
[2019-07-23] MEDS ORDERED: DEXTROSE 50% 50 ML SYRINGE IV PRN (14:30)
[2019-07-23] MEDS ORDERED: ALBUTEROL SULFATE 2.5 MG/0.5 ML INH NEB SOLN NEB PRN (14:30)
[2019-07-23] MEDS ORDERED: GLUCAGON FOR INJ 1 MG VIAL (J1610) SC PRN (14:30)
--- NOTE | 2019-07-23 15:59 | HPE ---
DATE OF ADMISSION: 07/23/2019 CHIEF COMPLAINT: Abnormal labs. HISTORY OF PRESENT ILLNESS: Patient is a 54-year-old male who presents to the emergency room after he had some labs drawn by Dr. Powers who he sees for wound care. Patient has chronic kidney disease stage IV and his recent labs on 07/22/2019 showed a creatinine of 5.36 and an EGFR of 12. At that point, nephrology was contacted and decided that the patient is most likely going to need dialysis and should report to the hospital. Patient reported to the hospital today. The decision was made to admit the patient to the hospital in order to perform dialysis and have further workup for the patient's worsening EGFR. The patient does not have any complaints at this time. The patient does see Dr. Powers for chronic wound care of his lower legs as he does have a history of peripheral vascular disease. The patient denies feeling ill at all and does not complain of any pain anywhere. PAST MEDICAL HISTORY: History of osteomyelitis in the patient's foot, peripheral vascular disease, chronic kidney disease stage IV, insulin dependent diabetes mellitus, asthma, history of a non-ST segment elevation myocardial infarction (ND), and hypertension. SURGICAL HISTORY: A left knee arthroscopy, a skin surgery to remove a wound, cholecystectomy, stent placement in his femoral artery for peripheral vascular disease, and a tonsillectomy. ALLERGIES: Patient is allergic to ASPIRIN, garlic, and silver. SOCIAL HISTORY: Patient denies smoking cigarettes. Patient denies alcohol use. Patient denies any illicit drug use. He lives at home with his son and they have two cats. FAMILY HISTORY: Family history is extensive for diabetes and hypertension. Patient also says one of his grandmother's from cancer. MEDICATIONS: - PhosLo 667 mg twice a week - carvedilol 12.5 mg twice a day - furosemide 40 mg daily - Levemir 55 units twice a day - NovoLog on a sliding scale - albuterol two puffs every 6 hours as needed for shortness of breath - Advair two puffs twice a day REVIEW OF SYSTEMS: General: Patient denies fevers or chills. HEENT: Patient says he has an occasional headache but does not have one right now. Patient denies any blurry vision. Cardiovascular: Patient denies any chest pain. Respiratory: Patient denies any shortness of breath or coughing. Gastrointestinal (GI): Patient denies any abdominal pain, nausea, vomiting, diarrhea, constipation, or blood in his stool. Genitourinary (): Patient denies any pain or difficulty with urination. Patient denies any blood in his urine. Lymphatic: Patient denies any new lumps or bumps in his neck. Hematologic: Patient denies any easy bruising. Skin: Patient denies any rashes or odd lesions that he has noticed. Patient does have chronic wounds to his lower extremities. Neurological: Patient denies any numbness or tingling feelings. Musculoskeletal: Patient says the metacarpophalangeal (MCP) joints on his left hand will occasionally swell up but they are not like that now and they have not for some time. PHYSICAL EXAMINATION: Vital signs: Temperature 97.9, pulse 73, respiratory rate 18, blood pressure 146/76, pulse oximetry 97% on room air. General: Patient is an alert and oriented male patient who is sitting on the emergency room (ER) stretcher when I walked in and was examining him. Patient was making jokes throughout the time I was in the room with him and patient did not appear to be in any acute distress. HEENT: Normocephalic, atraumatic with nonicteric sclerae. Patient had moist mucous membranes. Neck: Supple with no lymphadenopathy. Cardiovascular: Regular rate and rhythm with normal S1 and S2 with no murmurs auscultated. Respiratory: Clear to auscultation bilaterally. Abdomen: Soft, obese, nontender with normoactive bowel sounds times four quadrants. Back: Spine was midline. Skin: There was no rashes appreciated in the face, neck, back, and arms. Patient had numerous wounds on his lower extremities below the knee, including one that had a black eschar on the lateral side of the right lower leg a few centimeters superior to the lateral malleolus. Patient had also erythema and scaling present about the lower extremities below the knees. Extremities: Radial pulses were equal bilaterally. Neurologic: Patient was able to wiggle his toes as well as move his ankles and legs independently. Patient also had 5/5 closing manager strength and reported good sensation in the upper and lower extremity dermatomes that were tested. LABORATORIES: A CBC drawn today shows a white blood cell count of 7.7, hemoglobin 9.6, hematocrit 28.6, platelets 256. A comprehensive metabolic profile drawn today shows sodium of 139, potassium 4.4, chloride 111, bicarbonate 20, BUN 106, creatinine 5.65 for an EGFR of 11.3, glucose was 196, calcium 8.6, phosphorous 5.2, magnesium 2.3, total bilirubin 0.3, direct bilirubin 0.1, AST 9, ALT 19, alkaline phosphatase 98, total protein 7.1, albumin 2.5, lipase 145. Patient had a PT of 13.8, INR of 1.09, and an aPTT of 38.7. ASSESSMENT AND PLAN: Patient is a 54-year-old male who presents to the hospital after abnormal labs were drawn showing elevated BUN and creatinine and a decreased estimated glomerular filtration rate (EGFR) which meets criteria for stage V chronic kidney disease requiring dialysis. 1. Acute on chronic renal failure. Patient had a creatinine drawn of 5.36 yesterday which is elevated from the last known creatinine in our system of 2.77 on 11/11/2018. Dr. Powers had contacted Dr. Shaw of nephrology about the elevated BUN and creatinine and decreased estimated glomerular filtration rate (EGFR) and Dr. Shaw advised the patient to come into the hospital for further evaluation and treatment and dialysis. Dr. Shaw has been consulted on the case and he will speak to the patient more about vascular access for dialysis and dialysis. We appreciate Dr. Shaw's help in treating this patient. Renal ultrasound has been done and is pending. 2. Chronic wounds of his bilateral lower extremities. Patient was seen by Dr. Powers of wound care yesterday. Patient reports that he did have a debridement of the largest wound which is on the lateral aspect of his right lower leg. There is a black eschar prominent there. At this time, we will continue wound care with foam bandages and checks of the wounds at least daily. Patient does not have a white count at this time and is not showing any signs of infection such as fever, so I do not believe that these wounds are infected and that we do not need to start antibiotics at this time, however we will continue to monitor the patient. 3. Insulin dependent diabetes mellitus. The patient will be continued on his home dose of Levemir which is 55 units twice a day. We will also put the patient on a before food and nightly sliding scale. 4. Hypertension. We will continue with the patient's home medication of carvedilol 12.5 mg twice a day. 5. Asthma. We will continue with the patient's home Advair two puffs twice a day. We will also write for albuterol nebulizers every 6 hours as needed if the patient feels short of breath. 6. History of non-ST segment elevation myocardial infarction (ND). We will continue with the patient's carvedilol. 7. Peripheral vascular disease. We will continue to monitor the patient's lower extremities for signs of ischemia and worsening of his wounds. 8. Deep venous thrombosis (DVT) prophylaxis. The patient is on heparin 5000 units subcutaneous every 8 hours. 9. CODE STATUS: Patient wishes to be a FULL CODE. PLAN: Plan is to admit the patient to the medical surgical unit for further evaluation. Dr. Shaw has been consulted and he says that he will talk to the patient more about what is the plans for the future for this patient and how they will gain access for dialysis. My faculty preceptor for this patient encounter was physically present during the encounter and was fully available. All aspects of the patient interview, examination, medical decision making process, and medical care plan development were reviewed and approved by the faculty preceptor. The faculty preceptor is aware and concurs with the plan as stated in the body of this note and will attest to such by his/her cosignature. I, Christian Dunham, have independently examined this patient and performed my own physical exam, as well as reviewed the documentation and edited where necessary. I have discussed in detail with the resident / student the findings and plan of treatment as documented by the resident / student and edited their note. I agree with their findings and treatment plan and have edited their documentation. I will continue to follow the patient during this hospital stay. YOON
--- NOTE | 2019-07-23 16:50 | REP ---
Ultrasound for acute renal failure: The right kidney measures 11.6 x 6.1 x 5.6 cm. The left kidney measures 11.3 x 5.5 x 6.9 cm. The kidneys are normal size. The renal cortices are hyperechoic bilaterally. This is compatible with medical renal disease. There is no hydronephrosis on the right on the left. There are no renal calculi. There are no solid or cystic renal masses. Impression: Hyperechoic renal cortices compatible with medical renal disease. There is no hydronephrosis. Bladder: With color Doppler assessment. no ureteral jets are observed wall scanning for a period of 5 minutes., however, there is no fiber hydronephrosis. This may be from dehydration. Electronically Signed by Jayden Moser MD 07/23/2019 04:42 P
[2019-07-23] MEDS: HumaLOG INSULIN (NovoLOG) PER UNIT SC SCH ×2 (17:30→20:17)
[2019-07-23 18:47] VITALS: BP 150/70
[2019-07-23] MEDS: CALCIUM ACETATE 667 MG GELCAP PO SCH (19:25)
[2019-07-23] MEDS: CARVedilol 12.5 MG TAB PO SCH (20:46)
[2019-07-23] MEDS: LEVEMIR (INSULIN DETEMIR) 1 UNITS/0.01ML SC SCH (20:47)
[2019-07-23] MEDS: HEPARIN SOD (PORCINE) 5000 UNITS/ML VIAL SC SCH (20:47)
[2019-07-23] MEDS: ADVAIR HFA 230/21MCG INHALER INH SCH (21:39)
[2019-07-23 22:00] VITALS: BP 146/72
[2019-07-24] MEDS: HEPARIN SOD (PORCINE) 5000 UNITS/ML VIAL SC SCH ×3 (05:41→21:23)
[2019-07-24 06:00] VITALS: BP 142/68
[2019-07-24 07:03] LABS: HEMATOCRIT 25.6 % (42.0-52.0); HEMOGLOBIN 8.3 g/dl (13.5-17.5); MEAN CORPUSCULAR HEMOGLOBIN 27.7 pg (27.0-33.0); MEAN CORPUSCULAR HGB CONC 32.4 g/dl (32.0-36.5); MEAN CORPUSCULAR VOLUME 85.3 fl (80.0-96.0); PLATELET COUNT, AUTOMATED 240 10^3/uL (150-450)
[2019-07-24 07:26] LABS: BLOOD UREA NITROGEN 95 MG/DL (7-18); CALCIUM LEVEL 8.1 MG/DL (8.5-10.1); CARBON DIOXIDE LEVEL 22 MEQ/L (21-32); CHLORIDE LEVEL 114 MEQ/L (98-107); GLOMERULAR FILTRATION RATE 12.5 (>56); GLUCOSE, FASTING 131 MG/DL (70-100); IRON (FE) 41 UG/DL (65-175); PERCENT SATURATION 19.1 % (19.7-50.0); POTASSIUM SERUM 4.4 MEQ/L (3.5-5.1); SODIUM LEVEL 145 MEQ/L (136-145); TOTAL IRON BINDING CAPACITY 215 UG/DL (250-450)
[2019-07-24] MEDS: HumaLOG INSULIN (NovoLOG) PER UNIT SC SCH ×4 (08:05→20:06)
[2019-07-24] MEDS: CALCIUM ACETATE 667 MG GELCAP PO SCH ×3 (08:06→19:52)
[2019-07-24] MEDS: CARVedilol 12.5 MG TAB PO SCH ×2 (08:06→20:03)
[2019-07-24] MEDS: LEVEMIR (INSULIN DETEMIR) 1 UNITS/0.01ML SC SCH ×2 (08:06→20:10)
[2019-07-24] MEDS: ADVAIR HFA 230/21MCG INHALER INH SCH ×2 (08:15→21:09)
[2019-07-24] MEDS ORDERED: LIDOCAINE 2% MDV 20 ML VIAL As Ordered ONE (09:32)
[2019-07-24] MEDS ORDERED: HEPARIN SOD (PORCINE) 5000 UNITS/ML VIAL As Ordered ONE (09:32)
[2019-07-24] MEDS ORDERED: BUPIVACAINE HCL 0.5% 10 ML VIAL As Ordered ONE (09:32)
[2019-07-24 09:47] LABS: HEPATITIS B SURFACE ANTIBODY NEGATIVE (POSITIVE)
[2019-07-24 09:58] LABS: HEPATITIS B SURFACE ANTIGEN NEGATIVE (NEGATIVE)
[2019-07-24] MEDS ORDERED: hydrALAZINE INJ 20 MG/ML VIAL As Ordered ONE (10:13)
[2019-07-24] MEDS ORDERED: MIDAZOLAM INJ 2 MG/2 ML VIAL (J2250) As Ordered ONE (10:14)
[2019-07-24] MEDS ORDERED: PROPOFOL 200 MG/20 ML VIAL As Ordered ONE (10:14)
[2019-07-24 10:26] LABS: HEPATITIS B CORE ANTIBODY IGM NEGATIVE (NEGATIVE)
[2019-07-24] MEDS ORDERED: HEPARIN 1,000 UNITS/ML 10ML VIAL (FOR RADIOLOGY& DIALYSIS ONLY) XX ONE (10:30)
[2019-07-24] MEDS ORDERED: HEPARIN 1,000 UNITS/ML 10ML VIAL (FOR RADIOLOGY& DIALYSIS ONLY) IV ONE (10:30)
[2019-07-24] MEDS ORDERED: fentaNYL 100 MCG/2 ML INJECTION (J3010) IV PRN (11:00)
[2019-07-24] MEDS ORDERED: D5W/0.45% SODIUM CHLORIDE 1,000 ML IV SCH (11:00)
[2019-07-24] MEDS ORDERED: ONDANSETRON 4MG/2ML VIAL (J2405) IV PRN (11:00)
[2019-07-24] MEDS ORDERED: DEXTROSE 50% 50 ML SYRINGE IV ONE (11:15)
[2019-07-24] MEDS ORDERED: DEXTROSE 50% 50 ML SYRINGE ONE (11:22)
--- NOTE | 2019-07-24 11:55 | ROOPDOC ---
[facility] Report Of Operation Report of Operation DATE OF PROCEDURE: 07/24/2019 PREPROCEDURE DIAGNOSES: End-stage renal disease requiring access for renal replacement therapy, diabetes mellitus. POSTPROCEDURE DIAGNOSES: End-stage renal disease requiring access for renal replacement therapy, diabetes mellitus. PROCEDURE: Ultrasound guided right internal jugular vein cannulation. Fluoroscopic guided right internal jugular vein 19 cm tip to cuff tunneled central venous catheter insertion. ATTENDING SURGEON: DR. Isabel Dave M.D. PRIZE COORDINATOR: None INDICATION:Patient is an 54-year-old male who has renal failure who requires access for renal replacement therapy. Patient will undergo ultrasound and fluoroscopic guided placement of a right internal jugular vein tunneled central venous catheter. The procedure was described and explained to the patient in detail including drawing of pictures demonstrating the procedure and anatomy. Risks, benefits and alternative treatment options were discussed with the patient. Alternative treatment options included but were not limited to no intervention. Benefits included but were not limited to access for hemodialysis until permanent access for renal replacement therapy is created. Risks included, but were not limited to infection, bleeding, pneumothorax, hemothorax, cannulation site deep venous thrombosis, possible need for open surgical intervention, allergic reaction or complication from prepping and draping materials, possible need for transfusion of blood products, anesthetic complications, cerebrovascular accident, myocardial infarction, pulmonary embolus, deep venous thrombosis, loss of limb, loss of life, poor satisfaction and poor outcome. Risks of not performing the procedure included but were not limited to inability to obtain renal replacement therapy via hemodialysis and . The patient's questions were answered. The patient voices understanding of these risks, benefits and alternative treatment options. The patient voices acceptance of the risks associated with the procedure and agrees to proceed with an ultrasound and fluoroscopic guided right internal jugular vein tunneled central venous catheter insertion. There were no promises or guarantees made to the patient regarding the outcome or results of the procedure. ANESTHESIA: Local MAC with 20 mL of 2% lidocaine mixed with 0.5% Marcaine. EBL: 10 ml. IVF: 100 ml. FLUORO TIME: 0.1 minutes. CONTRAST: None. COMPLICATIONS: None. DRAINS: None. SPECIMENS: None. IMPLANTS: Right internal jugular vein tunneled central venous catheter with use of a 19 cm tip to cuff [place] hemodialysis catheter. DESCRIPTION OF PROCEDURE: Patient was taken to the angiography suite, placed supine on the angiography room table and then prepped and draped in a standard surgical fashion. A timeout was conducted by myself and the team members in the room confirming the correct patient, procedure and laterality. Ultrasound guidance was used to cannulate the right internal jugular vein using a micropuncture needle after anesthetizing the overlying skin and subcutaneous tissue with 1% lidocaine mixed with 0.5% Marcaine. The cannulation of the right internal jugular vein was performed with real-time concurrent visualization of the entry of the micropuncture needle into the right internal jugular vein with a hardcopy image preserved. The ultrasound showed the right internal jugular vein to be widely patent, easily compressible and free of thrombus. The micropuncture wire was advanced through the micropuncture needle which was upsized to a micropuncture sheath. An Amplatz wire was advanced through the micropuncture sheath which was then used to sequentially dilate the right internal jugular vein under fluoroscopic guidance. An introducer sheath was then placed over the Amplatz wire and the wire was removed. The catheter was tunneled through a puncture wound in the right chest after anesthetizing the overlying skin and subcutaneous tissue with 1% lidocaine mixed with 0.5% Marcaine and brought out through a puncture wound at the right internal jugular vein entry site. The catheter was then advanced through the introducer sheath which had been positioned under fluoroscopic guidance. The catheter was positioned under fluoroscopic guidance with the tip in the superior vena cava right atrial junction. Both ports of the catheter were aspirated, noted to aspirate easily and then flushed with heparinized saline. The catheter was secured to the right anterior chest wall using #2-0 Prolene suture after anesthetizing the overlying skin and subcutaneous tissue with 1% lidocaine mixed with 0.5% Marcaine. The puncture wound in the right neck was closed using #4-0 Monocryl in inverted interrupted fashion. Steri-Strips and dressings were applied. The patient tolerated the procedure well. All instrument, sponge and needle counts were correct at the end of the case. There were no complications. Dr. Dave was present for and directed the entire case. Patient was transferred to the recovery area and subsequently to the floor in stable condition. The tunneled central venous catheter is stable for use for hemodialysis access. RADIOLOGIC SUPERVISION AND INTERPRETATION: The initial ultrasound showed the right internal jugular vein to be easily compressible, widely patent and free of thrombus. Ultrasound was used to guide cannulation of the right internal jugular vein with real-time concurrent visualization of the entry of the needle into the right internal jugular vein with a hardcopy image preserved. Fluoroscopic gu idance was then used to sequentially dilate the right internal jugular vein, place an introducer sheath and position the catheter with the tip in the superior vena cava/right atrial junction. Final fluoroscopic image showed the catheter to be in good position and good alignment with no pneumo- or hemothorax noted with the tip in the superior vena cava/right atrial junction. The tunneled central venous catheter is stable for use for hemodialysis access. Rancho Dave MD Jul 24, 2019 11:55
[2019-07-24 12:00] VITALS: BP 167/65
--- NOTE | 2019-07-24 12:15 | IPNPDOC ---
Text Note Date of Service The patient was seen on 07/24/19. NOTE Subjective: Patient is doing well today. Patient had just come back from his permacath placement done by Dr. Dave. Patient was a little sleepy however, he was in good spirits. Patient was not complaining of any pain. Patient was only complaining that he was hungry because he did not eat breakfast. Patient did well overnight and will soon start dialysis. Review of systems General: Patient denies fevers HEENT: Patient denies headaches Cardiovascular: Patient denies chest pain Respiratory: Patient denies shortness of breath, cough GI: Patient denies abdominal pain, nausea, vomiting, diarrhea : Patient denies pain or difficulty with urination Neurological: Patient denies numbness or tingling in extremities Extremities: Chronic swelling and wounds on the patient's legs however, these are not bothering the patient at this time. Objective: Vitals: (see below) General: No acute distress, laying comfortably in bed. HEENT: Normocephalic, atraumatic, moist mucous membranes. Neck: No JVD or lymphadenopathy Cardiac: RRR, No murmurs Pulm: Clear to auscultation b/l. No wheezing, rhonchi Abd: NT/ND + BS Ext: There is extensive swelling in the bilateral lower extremities below the level of the knee. There are a few small superficial ulcerations on the legs and feet that are healing well. There is also a slightly larger ulceration with a black eschar on the lateral side of the right lower extremity above the lateral malleolus. Labs (see below) Images: Renal ultrasound performed on 07/23/2019 showed hyperechoic renal cortices compatible with medical renal disease. No hydronephrosis. Bladder assessment shows no ureteral jets. Assessment/Plan 1. Acute on chronic renal failure. Patient had a permacath placement Dr. Dave today. Patient will start dialysis per Dr. Shaw. Patient will have to be dialyzed 3 times before he is able to be set up for a dialysis chair. Once the patient has a dialysis chair, he'll be able to be discharged. We appreciate Dr. Shaw's help in treating this patient. 2. Chronic wounds of his bilateral lower extremities. Wound care per Dr. Powers's office. 3. Insulin-dependent diabetes mellitus. Patient is on Levemir 55 units twice a day and is on sliding scale. 4. Hypertension. We'll continue carvedilol 12.5 twice a day 5. Asthma. Continue patient's home Advair and albuterol nebulizers as needed. 6. History of non-ST segment [place]. We'll continue the patient's carvedilol. 7. Peripheral vascular disease. Continue to monitor the patient's lower extremities. DVT prophy: Heparin 5000 units every 8 hours Dispo: Pending placement for dialysis chair. VS,Fishbone, I+O VS, Fishbone, I+O Laboratory Tests 07/23/19 13:40 Red Blood Count 3.32 L, Mean Corpuscular Volume 86.1, Mean Corpuscular Hemoglobin 28.9, Mean Corpuscular Hemoglobin Concent 33.6, Red Cell Distribution Width 13.5, Neutrophils (%) (Auto) 67.0 H, Lymphocytes (%) (Auto) 21.1 L, Monocytes (%) (Auto) 8.8 H, Eosinophils (%) (Auto) 1.8, Basophils (%) (Auto) 0.3, Neutrophils # (Auto) 5.2, Lymphocytes # (Auto) 1.6, Monocytes # (Auto) 0.7, Eosinophils # (Auto) 0.1, Basophils # (Auto) 0.0 07/24/19 06:45 Red Blood Count 3.00 L, Mean Corpuscular Volume 85.3, Mean Corpuscular Hemoglobin 27.7, Mean Corpuscular Hemoglobin Concent 32.4, Red Cell Distribution Width 13.5, Calcium Level 8.1 L Vital Signs Date Time Temp Pulse Resp B/P (MAP) Pulse Ox O2 Delivery O2 Flow Rate FiO2 07/24/19 11:30 59 16 109/56 (73) 96 07/24/19 11:25 96.8 07/24/19 10:55 2 07/23/19 17:03 Room Air I&O- Last 24 Hours up to 6 AM 07/24/19 06:00 Intake Total 780 ml Output Total 1900 ml Balance -1120 ml GME ATTESTATION GME ATTESTATION My faculty preceptor for this patient encounter was physically present during the encounter and was fully available. All aspects of the patient interview, exa mination, medical decision making process, and medical care plan development were reviewed and approved by the faculty preceptor. The faculty preceptor is aware and concurs with the plan as stated in the body of this note and will attest to such by his/her cosignature. ATTENDING NOTE I, Christian Dunham, have independently examined this patient and performed my own physical exam, as well as reviewed the documentation and edited where necessary. I have discussed in detail with the resident / student the findings and plan of treatment as documented by the resident / student and edited their note. I agree with their findings and treatment plan and have edited their documentation. I will continue to follow the patient during this hospital stay. JACKELYN ODOM DO Jul 24, 2019 12:15 CHRISTIAN DUNHAM MD Jul 24, 2019 13:45
[2019-07-24 13:00] VITALS: BP 128/84
[2019-07-24 14:00] VITALS: BP 138/78
--- NOTE | 2019-07-24 14:47 | CR ---
DATE OF CONSULTATION: 07/23/2019 NEPHROLOGY CONSULTATION FOR: Christian Dunham MD REASON FOR CONSULTATION: Advanced renal failure. HISTORY OF PRESENT ILLNESS: Mr. Parrish is a 54-year-old gentleman who has been chronically noncompliant with his care. He has been followed in our office. However, he stops coming to office and has been discharged from care multiple times. He was last seen in December and at that time his creatinine was about 3.2 mg/dL. He had some lab work done by Dr. Powers on 07/22/2019, which showed blood urea nitrogen (BUN) of 106 and creatinine about 5.3. I was called by Dr. Powers and requested to see him urgently. I advised to send the patient to emergency room as he is likely to require dialysis. In the past, we had created and arteriovenous (AV) fistula. However, it did not develop and then the patient stopped followup even with vascular surgery. He has chronic nonhealing wounds on his legs, for which he is followed by wound care clinic and Dr. Powers has been trying to get his wounds healed. PAST MEDICAL AND SURGICAL HISTORY (significant for): 1. Longstanding poorly controlled diabetes. 2. Hypertension. 3. Diabetic nephropathy with advanced renal failure. 4. History of anemia. 5. History of coronary artery disease with prior myocardial infarction (DC). 6. History of nonhealing leg wounds. 7. History of osteomyelitis in the past. Past surgical history is significant for left knee arthroscopy, cholecystectomy, stent placement in his femoral artery for peripheral vascular disease, tonsillectomy, left arm AV fistula creation, which did not develop. ALLERGIES: The patient has allergy to ASPIRIN. MEDICATIONS: His home medications include: - furosemide 40 mg daily - Levemir insulin 55 units twice daily - NovoLog insulin per sliding scale - albuterol inhaler 2 puffs every 6 hours - Carvedilol 12.5 mg twice a day - PhosLo 667 mg twice a day - Advair 2 puffs twice a day I am not sure if he was compliant with his medications as he has not been receiving any prescriptions from our office. PERSONAL AND SOCIAL HISTORY: Patient has long history of noncompliance with medical care. Denies any smoking or alcohol use. Denies any drug use. FAMILY HISTORY: Negative for end-stage renal disease. REVIEW OF SYSTEMS: Denies any fever or chills. He was basically sent to the emergency room due to advanced renal failure diagnosed on his lab work. Ears, nose, and throat are unremarkable. Cardiovascular system significant for coronary artery disease with prior DC. He denies any chest pain at present. He does have some chronic lower extremity edema. Respiratory system negative for cough or hemoptysis. Gastrointestinal (GI) system negative for vomiting or diarrhea. Genitourinary () system negative for dysuria or hematuria. Musculoskeletal system is significant for chronic ulcers on his legs and also has history of osteomyelitis. Neurological system negative for seizures or stroke. Psychosocial system negative for depression or anxiety. He does have chronic noncompliance. PHYSICAL EXAMINATION: Temperature 98 degrees Fahrenheit, heart rate 75 per minute. and respiratory rate 18 per minute. Blood pressure 146/72 mmHg and oxygen saturation 95% on room air. Head is atraumatic. There is no oral thrush or ulcers. Pupils equal and reactive to light and sclera is anicteric. Neck is supple and jugular venous distention (JVD) is not abnormally elevated. Heart sounds are regular and there is no audible pericardial friction rub. Lungs: Clear to auscultation. Abdomen: Soft, obese and nontender, and bowel sounds are present. Extremities: Have no cyanosis or clubbing. He does have bilateral thigh edema. Both lower legs are wrapped in dressings. He has an ulcer on both legs. Neurologically, he is awake and without a focal deficit. LABORATORY DATA: Today's labs show WBC count 7.7, hemoglobin 9.6, and hematocrit 28.6. Platelets 256. Sodium 139, potassium 4.4, CO2 20, BUN 106, and creatinine 5.65. Glucose 196 and calcium 8.6. Phosphorus 5.2. Total protein 7.1 and albumin 2.5. Renal ultrasound done today was negative for any hydronephrosis. PROBLEMS: 1. Advanced renal failure. Patient has known history of longstanding chronic kidney disease and noncompliance with medical care. Unfortunately, his diabetes has been poorly controlled and most likely he has diabetic nephropathy. His GFR is now about 11 and he does have some peripheral edema, which is suggestive of hypervolemia and hemodilution. The patient has been advised preparation for dialysis in the past. He did have an AV fistula created in his left arm. However, it did not develop and then he stopped followup with vascular surgery and also with our office. He is going to need to start dialysis during this hospitalization. We will request vascular surgery to place a PermaCath for temporary use and also get a new AV fistula created in his upper arm while he is still here in the hospital. 2. Anemia related to chronic renal failure and bilateral nonhealing leg wounds. We will check iron studies and consider giving him intravenous iron along with Aranesp when he starts dialysis. No urgent intervention is needed at present. 3. Hypervolemia and leg edema. This is a chronic issue and I will stop the IV fluid. I do not feel that he is dehydrated and giving him more IV fluid is likely to worsen his hypervolemia and peripheral edema. 4. Hypertension. I would recommend to continue with beta-kristen therapy. His blood pressure is likely to improve once he starts dialysis and his volume status is corrected. Thank you for involving me in the care of Mr. Parrish. I will follow him along with you.
[2019-07-24] MEDS ORDERED: IRON SUCROSE 100MG 5ML VIAL (J1756 PER 1MG) IV SCH (20:00)
--- NOTE | 2019-07-24 20:10 | IPN ---
DATE: 07/24/2019 Mrs. Parrish is seen this morning on his bedside. He is on his way down to interventional radiology for Perma-Cath placement. He was admitted yesterday due to advanced renal failure and need for dialysis. He has chronic leg edema and bilateral lower extremity wounds. He has no fever or chills. The patient denies any nausea or vomiting. PHYSICAL EXAMINATION: Temperature 97.8 degrees Fahrenheit, heart rate 60 per minute and respiratory rate 16 per minute. Blood pressure 140/60 mmHg and oxygen saturation 96%. His head is atraumatic. Neck is supple and without jugular venous distention (JVD) or thyroid enlargement. Heart sounds regular and lungs with slightly diminished breath sounds at bases. Abdomen is obese, soft and nontender. Extremities: Have bilateral thigh edema. There is no cyanosis or clubbing. Lower legs are wrapped in dressings. Neurologically he is at his baseline mentation without a focal deficit. Today's labs show WBC count 7.0, hemoglobin 8.3 and hematocrit 25.6. Platelets 240. Sodium 145, potassium 4.4, CO2 of 22, BUN 95 and creatinine 5.2, glucose 131 and calcium 8.1. Iron level is 41 and saturation 19.1%. PROBLEM #1: End-stage renal disease. The patient has known history of diabetic nephropathy with advanced chronic renal failure. He stopped followup several months ago. He has progressed to end-stage renal disease, and he is going to have a Perma-Cath placed for dialysis. He had an arteriovenous (AV) fistula created last year which did not develop. He will need a new AV fistula also. The patient is going to have his first hemodialysis today. PROBLEM #2: Anemia. It is of iron deficiency and anemia of chronic kidney disease. We will start Venofer 100 mg with each dialysis. PROBLEM #3: Hypervolemia and peripheral edema. He does have significant lower extremity edema. IV fluid was stopped last night. I do not feel that he needs further IV fluid. Will try to remove gradually some of his fluid as tolerated. PROBLEM #4: Bilateral lower extremity ulcers. The patient has chronic stasis ulcers and is being followed at the wound clinic. He is currently not on any systemic antibiotics.
[2019-07-24] MEDS ORDERED: DARBEPOETIN 100 MCG/0.5 ML *DIALYSIS* SYRINGE (J0882) IV SCH (21:00)
[2019-07-24 22:00] VITALS: BP 144/86
[2019-07-25 02:00] VITALS: BP 120/62
[2019-07-25 05:51] LABS: HEMATOCRIT 27.1 % (42.0-52.0); HEMOGLOBIN 8.8 g/dl (13.5-17.5); MEAN CORPUSCULAR HEMOGLOBIN 28.3 pg (27.0-33.0); MEAN CORPUSCULAR HGB CONC 32.5 g/dl (32.0-36.5); MEAN CORPUSCULAR VOLUME 87.1 fl (80.0-96.0); PLATELET COUNT, AUTOMATED 221 10^3/uL (150-450); RED BLOOD COUNT 3.11 10^6/uL (4.30-6.10); WHITE BLOOD COUNT 7.8 10^3/uL (4.0-10.0)
[2019-07-25 06:00] VITALS: BP 120/80
[2019-07-25 06:08] LABS: CALCIUM LEVEL 8.3 MG/DL (8.5-10.1); CREATININE FOR GFR 4.27 MG/DL (0.70-1.30); GLOMERULAR FILTRATION RATE 15.6 (>56); POTASSIUM SERUM 4.3 MEQ/L (3.5-5.1)
[2019-07-25] MEDS: HEPARIN SOD (PORCINE) 5000 UNITS/ML VIAL SC SCH ×3 (06:08→20:56)
[2019-07-25] MEDS: CALCIUM ACETATE 667 MG GELCAP PO SCH ×3 (06:09→18:06)
[2019-07-25] MEDS: CARVedilol 12.5 MG TAB PO SCH ×2 (06:09→20:55)
[2019-07-25] MEDS: HumaLOG INSULIN (NovoLOG) PER UNIT SC SCH ×4 (07:48→20:55)
[2019-07-25] MEDS: LEVEMIR (INSULIN DETEMIR) 1 UNITS/0.01ML SC SCH ×2 (07:48→20:55)
[2019-07-25] MEDS: ADVAIR HFA 230/21MCG INHALER INH SCH ×2 (08:06→20:04)
--- NOTE | 2019-07-25 08:41 | IPNPDOC ---
Text Note Date of Service The patient was seen on 07/25/19. NOTE Subjective: Patient was seen and examined in his hospital room. Patient was sitting up eating breakfast. Patient had dialysis yesterday and said this went well. After his port placement, his blood sugar was low in the 50s. Patient was given some D10 and ate lunch and his blood sugar came back up. Patient was complaining of a headache at that time however, once his sugar became normal he is not having a headache. Patient had no acute complaints today and there was no events overnight. Review of systems General: Patient denies fevers HEENT: Patient denies headaches Cardiovascular: Patient denies chest pain Respiratory: Patient denies shortness of breath, cough GI: Patient denies abdominal pain, nausea, vomiting, diarrhea : Patient denies pain or difficulty with urination Neurological: Patient denies numbness or tingling in extremities Extremities: Patient says the swelling in his extremities seem slightly better today. Objective: Vitals: (see below) General: No acute distress, sitting on the edge of his bed comfortably. HEENT: Normocephalic, atraumatic, moist mucous membranes. Neck: No JVD or lymphadenopathy Cardiac: RRR, No murmurs Pulm: Clear to auscultation b/l. No wheezing, rhonchi Abd: NT/ND + BS Ext: Patient has edema bilaterally as well as numerous wounds on his legs. Labs (see below) Images: No imaging has been performed. Assessment/Plan 1. Acute on chronic renal failure. Patient had permacath placement yesterday. Patient started dialysis yesterday and is getting get dialyzed again today. Patient will need 3 sessions of dialysis before he is able to get set up with an outpatient dialysis chair. Once patient gets a dialysis chair, patient will be able to be discharged. We appreciate Dr. Shaw's help in treating this patient. 2. Chronic wounds of his bilateral lower extremities. Wound care will be performed today per Dr. Hall's orders. 3. Insulin-dependent diabetes mellitus. Patient is on Levemir 55 units twice a day and sliding scale. 4. Hypertension. Continue patient's carvedilol 12.5 mg twice a day. 5. Asthma. Continue patient's home Advair and albuterol nebulizers as needed. 6. History of non-ST segment myocardial infarction. Continue patient's carvedilol. 7. Peripheral vascular disease. Continue to monitor the patient's lower extremities. DVT prophy: Heparin 5000 units every 8 hours Dispo: Pending placement for dialysis chair. VS,Fishbone, I+O VS, Fishbone, I+O Laboratory Tests 07/25/19 05:27 Red Blood Count 3.11 L, Mean Corpuscular Volume 87.1, Mean Corpuscular Hemog lobin 28.3, Mean Corpuscular Hemoglobin Concent 32.5, Red Cell Distribution Width 13.6, Calcium Level 8.3 L Vital Signs Date Time Temp Pulse Resp B/P (MAP) Pulse Ox O2 Delivery O2 Flow Rate FiO2 07/25/19 06:09 72 120/62 07/25/19 06:00 98.2 18 98 07/24/19 10:55 2 07/23/19 17:03 Room Air I&O- Last 24 Hours up to 6 AM 07/25/19 05:59 Intake Total 935 ml Output Total 4045 ml Balance -3110 ml GME ATTESTATION GME ATTESTATION My faculty preceptor for this patient encounter was physically present during the encounter and was fully available. All aspects of the patient interview, examination, medical decision making process, and medical care plan development were reviewed and approved by the faculty preceptor. The faculty preceptor is aware and concurs with the plan as stated in the body of this note and will attest to such by his/her cosignature. ATTENDING NOTE I, Christian Dunham, have independently examined this patient and performed my own p hysical exam, as well as reviewed the documentation and edited where necessary. I have discussed in detail with the resident / student the findings and plan of treatment as documented by the resident / student and edited their note. I agree with their findings and treatment plan and have edited their documentation. I will continue to follow the patient during this hospital stay. JACKELYN ODOM DO Jul 25, 2019 08:41 CHRISTIAN DUNHAM MD Jul 25, 2019 10:54
[2019-07-25] MEDS ORDERED: HEPARIN 1,000 UNITS/ML 10ML VIAL (FOR RADIOLOGY& DIALYSIS ONLY) XX ONE (10:00)
[2019-07-25] MEDS ORDERED: HEPARIN 1,000 UNITS/ML 10ML VIAL (FOR RADIOLOGY& DIALYSIS ONLY) IV ONE (10:00)
[2019-07-25 14:00] VITALS: BP 157/84
--- NOTE | 2019-07-25 14:33 | IPN ---
DATE: 07/25/2019 SUBJECTIVE The patient was seen and examined at the bedside today morning during hemodialysis procedure today. This is his second day of dialysis. He is tolerating the hemodialysis procedure well. He reports that his leg swelling is getting better now. He denies any active complaints. OBJECTIVE Vital signs: Temperature is 98.2 degrees Fahrenheit, blood pressure 120/80, pulse is 74, respiratory rate of 18, saturating 98% on room air. Intake and output: Urine output recorded at 600 mL. Ultrafiltration with hemodialysis was 1 liter yesterday. Weight in the bed scale is not available. PHYSICAL EXAMINATION General: The patient is awake, alert, oriented times three, laying in bed, in no apparent distress. Head and neck examination: Extraocular muscles intact. Pupils equally round and reactive to light. Neck is supple. He has a right IJ tunneled hemodialysis catheter being used for dialysis. Cardiovascular: S1, S2, regular rate, 2+ edema of the bilateral lower extremities. Respiratory: Chest is clear to auscultation bilaterally. Bilateral equal air entry. No rales or rhonchi. Abdomen: Soft, obese, positive bowel sounds. Nontender. No organomegaly. Musculoskeletal: The patient has ulcers on bilateral lower extremities and he has a dressing wrapped on both legs. [employer] INST[employer]ATION HELPER: No focal deficit. Power is 5/5 in bilateral upper extremities. LAB REVIEW: CBC showed a WBC of 7.8, hemoglobin 8.8, platelets are 221. BMP showed sodium 142, potassium 4.3, chloride 112, bicarb 24, BUN 82, creatinine is 4.2, iron 41, TIBC 215, transferrin saturation 19.1%. CURRENT INPATIENT MEDICATIONS: The patient's medications were all reviewed by me. He has been started on Venofer 100 mg IV q. hemodialysis times 10 doses. I have also started the patient on Aranesp 200 mcg microgram IV with hemodialysis. No other change in the medications today as compared with yesterday. ASSESSMENT/PLAN 1. End-stage renal disease. The patient is dialysis dependent now. He was dialyzed for the first time yesterday. A second session of dialysis is being done today. He is tolerating the dialysis well. He will need outpatient placement for hemodialysis. 2. Anemia in end-stage renal disease. The patient has iron deficiency and end-stage renal disease. He has been started on Venofer 100 mg IV every hemodialysis. He is also going to start Aranesp 200 mcg with dialysis, hemoglobin level is expected to improve. No need of blood transfusion. 3. Volume overload and lower extremity edema. The patient got 1 liter of fluid removed yesterday. He will get at least 2 liters of fluid removed today. Continue the fluid restriction. 4. Hypertension with end-stage renal disease, blood pressure is optimal. Continue current dose of Coreg 12.5 mg p.o. twice a day. Coreg dose might need to be decreased once his volume status gets better. 5. Diabetes mellitus type 2, glucose level is controlled. Continue insulin sliding scale and Levemir as per primary team. 6. Bilateral lower extremity ulcers. The patient was seen wound care as outpatient. The patient has chronic lymphedema and leg swelling. Once the volume status gets better with fluid removal his ulcers are expected to improve. Continue the current wound care and dressing changes.
[2019-07-25 22:00] VITALS: BP 120/62
[2019-07-26 06:00] VITALS: BP 120/71
[2019-07-26] MEDS: HEPARIN SOD (PORCINE) 5000 UNITS/ML VIAL SC SCH ×3 (06:02→21:55)
[2019-07-26 07:19] LABS: HEMATOCRIT 27.3 % (42.0-52.0); HEMOGLOBIN 8.9 g/dl (13.5-17.5); MEAN CORPUSCULAR HEMOGLOBIN 28.5 pg (27.0-33.0); MEAN CORPUSCULAR HGB CONC 32.6 g/dl (32.0-36.5); MEAN CORPUSCULAR VOLUME 87.5 fl (80.0-96.0); PLATELET COUNT, AUTOMATED 207 10^3/uL (150-450); RED BLOOD COUNT 3.12 10^6/uL (4.30-6.10); WHITE BLOOD COUNT 7.3 10^3/uL (4.0-10.0)
[2019-07-26 07:38] LABS: CALCIUM LEVEL 8.6 MG/DL (8.5-10.1); CREATININE FOR GFR 4.34 MG/DL (0.70-1.30); GLOMERULAR FILTRATION RATE 15.4 (>56); POTASSIUM SERUM 4.2 MEQ/L (3.5-5.1)
[2019-07-26] MEDS: LEVEMIR (INSULIN DETEMIR) 1 UNITS/0.01ML SC SCH ×2 (08:20→21:57)
[2019-07-26] MEDS: HumaLOG INSULIN (NovoLOG) PER UNIT SC SCH ×4 (08:20→21:57)
[2019-07-26] MEDS: CALCIUM ACETATE 667 MG GELCAP PO SCH ×3 (08:21→17:56)
[2019-07-26] MEDS: CARVedilol 12.5 MG TAB PO SCH ×2 (08:23→21:54)
[2019-07-26] MEDS: ADVAIR HFA 230/21MCG INHALER INH SCH ×2 (09:38→20:23)
--- NOTE | 2019-07-26 13:25 | IPN ---
DATE OF SERVICE: 07/26/2019 SUBJECTIVE: The patient was seen and examined at the bedside today morning. He was dialyzed yesterday. He tolerated the hemodialysis procedure well. The patient reports that he feels slightly tired today as compared with yesterday. He reports that the lower extremity edema is getting better, and his appetite is also improving. OBJECTIVE: Vital signs: Temperature is 97.2 degrees Fahrenheit, blood pressure 120/71, pulse is 72, respiratory rate of 18, saturating 97% on room air. Intake and output: Urine output recorded is 450 mL. Ultrafiltration with hemodialysis was 2 liters. Weight in the bed scale is not available. PHYSICAL EXAMINATION: General: The patient is awake, alert, oriented times three, laying in bed in no apparent distress. Head and neck examination: Extraocular muscles intact. Pupils equally round and reactive to light. Neck is supple. Right internal jugular (vein) (IJ) tunneled hemodialysis catheter was noted. Cardiovascular: S1, S2, regular rate, 2+ edema of the bilateral lower extremities. Respiratory: Chest is clear to auscultation bilaterally. Bilateral equal air entry. No rales or rhonchi. Abdomen: Soft, obese, positive bowel sounds. Nontender. Musculoskeletal: The patient has ulceration on both legs, which are covered with dressings. Central nervous system (TRAINING CONSULTANT): No focal deficit. Power is 5/5 in bilateral upper extremities. LABORATORY REVIEW: Complete blood count (CBC) showed a WBC 7.3, hemoglobin 8.9, platelets are 207. Basic metabolic profile (BMP) showed sodium 140, potassium 4.2, chloride 110, bicarbonate 22, BUN 82, creatinine is 4.3. CURRENT INPATIENT MEDICATIONS: The patient's medications were all reviewed by me. There is no change in the medications today as compared with yesterday. ASSESSMENT AND PLAN: 1. End-stage renal disease, on hemodialysis. The patient got second session of dialysis done yesterday. Next hemodialysis will be done tomorrow morning, and he will be dialyzed for 3-1/2 hours with the F180 filter. 2. Anemia in end-stage renal disease. The patient is getting intravenous (IV) Venofer and Aranesp with dialysis. Hemoglobin level is slowly improving. 3. Lower extremity edema and volume overload. The patient got 2 liters of fluid removal done yesterday. I have placed him on a 2 liter fluid restriction and renal diet. 4. Hypertension with end-stage renal disease. Continue current dose of Coreg. Blood pressure is optimized. 5. Chronic kidney disease, mineral bone disease. Continue current dose of PhosLo one capsule three times a day with meals for hyperphosphatemia.
[2019-07-26 14:00] VITALS: BP 190/91
--- NOTE | 2019-07-26 15:40 | IPNPDOC ---
Text Note Date of Service The patient was seen on 07/26/19. NOTE Subjective: Patient was seen and examined at the bedside. Patient has received 2 sessions of dialysis. . He reported that the second dialysis session, he did feel weaker after completing it. He denies chest pain, shortness of breath or palpitations. Denies any vomiting, abdominal pain or diarrhea. Objective: Vitals (See below) General: Lying in bed, no acute distress, comfortable, AAOx3 HEENT: NC, AT CVS: RRR, +S1S2 Lungs: Fair air entry b/l, -w/r/r Abdomen: Soft, ND, NT Extremities: Bilateral extremities in dressing, trace edema bilaterally, - Calf tenderness Assessment and plan: Acute on Chronic Renal Failure - Patient is progression of his chronic kidney disease - s/p Permacath placement with Dr. Dave on 07/24/2019 - c/w Dialysis as per Nephrology - PFS on board for outpatient Dialysis establishment Chronic bilateral lower extremity wounds - c/w Wound care as per Dr. Powers's outpatient orders IDDM2 - c/w ISS and Levemir HTN - BP remains well controlled - c/w Carvedilol Asthma - No evidence of exacerbation - c/w inhaled therapy as ordered Hx of NSTEMI - c/w Carvedilol Peripheral vascular disease - c/w wound care treatment as stated above DVT prophylaxis - c/w Heparin Disposition: - Will need to complete 3 dialysis sessions and will need outpatient dialysis establishment VS,Emilie, I+O VS, Emilie, I+O Laboratory Tests 07/26/19 06:34 Red Blood Count 3.12 L, Mean Corpuscular Volume 87.5, Mean Corpuscular Hemoglobin 28.5, Mean Corpuscular Hemoglobin Concent 32.6, Red Cell Distribution Width 13.6, Calcium Level 8.6 Vital Signs Date Time Temp Pulse Resp B/P (MAP) Pulse Ox O2 Delivery O2 Flow Rate FiO2 07/26/19 08:23 80 193/98 07/26/19 06:00 97.2 18 97 07/24/19 10:55 2 07/23/19 17:03 Room Air I&O- Last 24 Hours up to 6 AM 07/26/19 05:59 Intake Total 2040 ml Output Total 2750 ml Balance -710 ml KIN JACKMAN MD Jul 26, 2019 15:40
[2019-07-26 17:45] VITALS: BP 164/84
[2019-07-26 22:00] VITALS: BP 160/74
[2019-07-27 06:00] VITALS: BP 169/50
[2019-07-27] MEDS: HEPARIN SOD (PORCINE) 5000 UNITS/ML VIAL SC SCH ×3 (06:21→21:06)
[2019-07-27 07:31] LABS: HEMATOCRIT 29.5 % (42.0-52.0); HEMOGLOBIN 9.5 g/dl (13.5-17.5); MEAN CORPUSCULAR HEMOGLOBIN 28.6 pg (27.0-33.0); MEAN CORPUSCULAR HGB CONC 32.2 g/dl (32.0-36.5); MEAN CORPUSCULAR VOLUME 88.9 fl (80.0-96.0); PLATELET COUNT, AUTOMATED 232 10^3/uL (150-450); RED BLOOD COUNT 3.32 10^6/uL (4.30-6.10); WHITE BLOOD COUNT 9.5 10^3/uL (4.0-10.0)
[2019-07-27 08:02] LABS: CALCIUM LEVEL 8.7 MG/DL (8.5-10.1); CREATININE FOR GFR 5.02 MG/DL (0.70-1.30); POTASSIUM SERUM 4.8 MEQ/L (3.5-5.1)
[2019-07-27] MEDS: ADVAIR HFA 230/21MCG INHALER INH SCH ×2 (08:15→21:03)
[2019-07-27] MEDS: LEVEMIR (INSULIN DETEMIR) 1 UNITS/0.01ML SC SCH ×2 (09:41→21:07)
[2019-07-27] MEDS: HumaLOG INSULIN (NovoLOG) PER UNIT SC SCH ×4 (09:42→21:00)
[2019-07-27] MEDS: CALCIUM ACETATE 667 MG GELCAP PO SCH ×3 (09:42→19:01)
[2019-07-27] MEDS: CARVedilol 12.5 MG TAB PO SCH ×2 (09:43→21:06)
--- NOTE | 2019-07-27 09:54 | IPNPDOC ---
Text Note Date of Service The patient was seen on 07/27/19. NOTE Subjective: Patient was seen and examined while sitting up eating breakfast. Patient has no complaints today. Patient says dialysis has gone well for the first 2 times he has had a. Patient realizes that this is a major health issue and is willing to stay in the hospital as long as it takes to ensure that he is set up properly for dialysis outpatient. No acute events overnight. Review of systems General: Patient denies fevers HEENT: Patient denies headaches Cardiovascular: Patient denies chest pain Respiratory: Patient denies shortness of breath, cough GI: Patient denies abdominal pain, nausea, vomiting, diarrhea : Patient denies pain or difficulty with urination Neurological: Patient denies numbness or tingling in extremities Extremities: Patient says the swelling in his lower extremities has improved. Objective: Vitals: (see below) General: No acute distress, laying comfortably in bed. HEENT: Normocephalic, atraumatic, moist mucous membranes. Neck: No JVD or lymphadenopathy Cardiac: RRR, No murmurs Pulm: Clear to auscultation b/l. No wheezing, rhonchi Abd: NT/ND + BS Ext: Patient has wounds on his bilateral lower extremities the to show any surrounding erythema. The largest wound is on the lateral side of the lower leg on the right. This wound is showing signs of healing with healthy granulation tissue with no surrounding erythema. The rest of the wounds are small superficial ulcers. Labs (see below) Images: No new imaging is been performed. Assessment/Plan 1. Acute on chronic renal failure. Patient is now dialysis dependent. Patient had a permacath placement on 07/24/[address] Dave. Patient is getting dialysis again today. We will work with discharge planning for outpatient dialysis chair tomorrow. 2. Chronic bilateral lower extremity wounds. Dressing change will be performed today as per Dr. Hall's orders. 3. Insulin-dependent diabetes mellitus. 55 units of Levemir twice a day and sliding scale. 4. Hypertension. Blood pressure well controlled on carvedilol. 5. Asthma. No evidence of exacerbation we will continue with his therapy. 6. History of NSTEMI. With carvedilol. 7. Peripheral vascular disease. Wound care as above. DVT prophy: Heparin 5000 units every 8 hours Dispo: Pending outpatient dialysis establishment. VS,Misbahbone, I+O VS, Misbahbone, I+O Laboratory Tests 07/27/19 07:12 Red Blood Count 3.32 L, Mean Corpuscular Volume 88.9, Mean Corpuscular Hemoglobin 28.6, Mean Corpuscular Hemoglobin Concent 32.2, Red Cell Distribution Width 13.7, Calcium Level 8.7 Vital Signs Date Time Temp Pulse Resp B/P (MAP) Pulse Ox O2 Delivery O2 Flow Rate FiO2 07/27/19 09:43 78 188/86 07/27/19 06:00 98.6 18 99 07/24/19 10:55 2 07/23/19 17:03 Room Air I&O- Last 24 Hours up to 6 AM 07/27/19 06:00 Intake Total 2710 ml Output Total 1300 ml Balance 1410 ml GME ATTESTATION GME ATTESTATION My faculty preceptor for this patient encounter was physically present during the encounter and was fully available. All aspects of the patient interview, examination, medical decision making process, and medical care plan development were reviewed and approved by the faculty preceptor. The faculty preceptor is aware and concurs with the plan as stated in the body of this note and will attest to such by his/her cosignature. ATTENDING NOTE I, Christian Dunham, have independently examined this patient and performed my own physical exam, as well as reviewed the documentation and edited where necessary. I have discussed in detail with the resident / student the findings and plan of treatment as documented by the resident / student and edited their note. I agree with their findings and treatment plan and have edited their documentation. I will continue to follow the patient during this hospital stay. JACKELYN ODOM DO Jul 27, 2019 09:54 CHRISTIAN DUNHAM MD Jul 27, 2019 14:40
[2019-07-27] MEDS ORDERED: HEPARIN 1,000 UNITS/ML 10ML VIAL (FOR RADIOLOGY& DIALYSIS ONLY) XX ONE (10:45)
[2019-07-27] MEDS ORDERED: HEPARIN 1,000 UNITS/ML 10ML VIAL (FOR RADIOLOGY& DIALYSIS ONLY) IV ONE (10:45)
[2019-07-27 20:03] VITALS: BP 150/78
--- NOTE | 2019-07-27 21:00 | IPN ---
DATE: 07/27/2019 SUBJECTIVE: The patient was seen and examined at the bedside today morning. He is afebrile, hemodynamically stable. He reports that he is feeling much better after starting dialysis. He does report mild persistent lower extremity edema. He is getting ready to be dialyzed today in the afternoon. OBJECTIVE: Vital signs: Temperature is 98.6 degrees Fahrenheit, blood pressure 188/86, pulse is 74, respiratory rate of 18, saturating 99% on room air. Intake and output: Urine output recorded is 500 mL, weight in the bed scale is not available. PHYSICAL EXAMINATION: General: The patient is awake, alert, oriented times three, sitting up in the bed in no apparent distress. Head and neck exam: Extraocular muscles intact. Pupils equally round and reactive to light. Right IJ tunneled hemodialysis catheter. Cardiovascular: S1, S2, regular rate. 2+ edema of the bilateral lower extremities. Respiratory: Chest is clear to auscultation bilaterally. Bilateral equal air entry. No rales or rhonchi. Abdomen: Soft, obese, positive bowel sounds. Nontender. Musculoskeletal: Ulceration in both legs with dressings, otherwise normal range of movement. VIDEO PRODUCTION ENGINEER: No focal deficit, power is 5/5 in bilateral upper extremities. LABORATORY REVIEW: CBC showed WBC of 9.5, hemoglobin 9.5, platelets are 232. BMP showed sodium 142, potassium 4.8, chloride 111, bicarbonate 23, BUN 93, creatinine is 5, calcium 8.7. CURRENT INPATIENT MEDICATIONS: The patient's medications were all reviewed by me. There is no change in the medications today as compared with yesterday. ASSESSMENT/PLAN: 1. End-stage renal disease. The patient has been dialyzed two times during this admission so far. He will get third session of hemodialysis for three and a half hours. I will try to remove at least 1-1/2 liters of fluid as tolerated by his blood pressure. 2. Anemia in end-stage renal disease. Hemoglobin level is slowly improving with the current dose of Aranesp and IV Venofer. 3. Lower extremity edema and volume overload. The patient will get at least 1.5 liters of fluid removed during dialysis. Lower extremity edema is slowly getting better. 4. Hypertension with end-stage renal disease. Continue current dose of Coreg. Volume status is being slowly optimized with dialysis.
[2019-07-28] MEDS: HumaLOG INSULIN (NovoLOG) PER UNIT SC SCH ×4 (01:00→21:00)
[2019-07-28 06:35] VITALS: BP 160/89
[2019-07-28] MEDS: HEPARIN SOD (PORCINE) 5000 UNITS/ML VIAL SC SCH ×3 (06:36→21:53)
[2019-07-28 06:37] LABS: MEAN CORPUSCULAR HEMOGLOBIN 28.4 pg (27.0-33.0); MEAN CORPUSCULAR HGB CONC 32.1 g/dl (32.0-36.5); MEAN CORPUSCULAR VOLUME 88.3 fl (80.0-96.0); PLATELET COUNT, AUTOMATED 189 10^3/uL (150-450); RED BLOOD COUNT 3.17 10^6/uL (4.30-6.10); WHITE BLOOD COUNT 9.1 10^3/uL (4.0-10.0)
[2019-07-28 06:59] LABS: CALCIUM LEVEL 8.3 MG/DL (8.5-10.1); CREATININE FOR GFR 4.09 MG/DL (0.70-1.30); GLOMERULAR FILTRATION RATE 16.4 (>56); POTASSIUM SERUM 4.5 MEQ/L (3.5-5.1)
[2019-07-28] MEDS: ADVAIR HFA 230/21MCG INHALER INH SCH ×2 (07:27→20:39)
--- NOTE | 2019-07-28 08:26 | REP ---
Bilateral upper extremity arterial and venous Doppler ultrasound: History: End-stage renal disease. Vein mapping examination. Comparison study February 01, 2018. Findings: On left upper extremity, there is evidence of a existing arteriovenous fistula from distal axillary artery due to cephalic vein. There is some intra year luminal thrombus within the cephalic vein proximal to the fistula. No other evidence of venous thrombosis is seen in either upper extremity veins. Fistula appears to be open. Right upper extremity vein diameter chart: Upper humerus basilic 4.5 mm, cephalic 1.8 mm Lower humerus basilic 2.8 mm, cephalic 1.9 mm Upper forearm basilic 2.5 mm, cephalic 2.2 mm Lower forearm basilic 1.8 mm, cephalic 2.3 mm Median cubital 2.7 mm Left upper extremity vein diameter chart: Upper humerus basilic 4.2 mm, cephalic 2.9 mm Lower humerus basilic 3.0 mm, cephalic thrombosed Upper forearm basilic 2.6 mm Lower forearm basilic 1.4 mm Median cubital 3.3 mm Right upper extremity arterial velocity and diameter chart: Axillary 118 cm/S, 5.2 mm Mid brachial 107 cm/S, 4.5 mm Proximal radial 103 cm/S, 2.7 mm Distal radial 94 cm/S, 2.1 mm Proximal ulnar 8 cm/S, 3.6 mm Distal ulnar and no 3 cm/S, 2.1 mm Left upper extremity arterial velocity and diameter chart: Axillary 93 cm/S, 5.6 mm Mid brachial 115 cm/S, 3.4 mm Proximal radial 105 cm/S, 2.9 mm Distal radial 98 cm/S, 1.9 mm Proximal ulnar 78 cm/S, 2.4 mm Distal ulnar 102 cm/S, 1.8 mm Electronically Signed by Oseas Benitez MD 07/28/2019 08:18 A
[2019-07-28] MEDS: LEVEMIR (INSULIN DETEMIR) 1 UNITS/0.01ML SC SCH ×2 (08:35→21:52)
[2019-07-28] MEDS: CALCIUM ACETATE 667 MG GELCAP PO SCH ×3 (08:35→18:12)
[2019-07-28] MEDS: CARVedilol 12.5 MG TAB PO SCH ×2 (08:35→21:52)
--- NOTE | 2019-07-28 11:26 | IPNPDOC ---
Text Note Date of Service The patient was seen on 07/28/19. NOTE Subjective: Patient was seen sitting up in bed. Patient in no acute complaints today. Patient's wound dressings were changed to Coban and for better pressure is support. Patient says dialysis has been going well for him and has no acute complaints today. There are no acute events overnight. Review of systems General: Patient denies fevers HEENT: Patient denies headaches Cardiovascular: Patient denies chest pain Respiratory: Patient denies shortness of breath, cough GI: Patient denies abdominal pain, nausea, vomiting, diarrhea : Patient denies pain or difficulty with urination Neurological: Patient denies numbness or tingling in extremities Extremities: Patient says the swelling in his legs has continued to go down since starting dialysis. Objective: Vitals: (see below) General: No acute distress, sitting up on the edge of his bed. HEENT: Normocephalic, atraumatic, moist mucous membranes. Neck: No JVD or lymphadenopathy Cardiac: RRR, No murmurs Pulm: Clear to auscultation b/l. No wheezing, rhonchi Abd: NT/ND + BS Ext: Wound dressings were changed yesterday and have been wrapped in Coban. The swelling has improved since he was first admitted. Labs (see below) Images: No new imaging has been performed. Assessment/Plan 1. Acute on chronic renal failure. Patient is now dialysis dependent. Status post permacath placement 07/24/2019. We will work with discharge planning for outpatient dialysis chair once this is set up, the patient will be able to be discharged home. 2. Chronic bilateral lower extremity wounds. These do not appear infected at last check yesterday. Dressing change will be performed tomorrow per Dr. Powers's orders. 3. Insulin dependent diabetes mellitus. Patient is on 55 units of Levemir twice a day and sliding scale coverage. 4. Hypertension. Blood pressure has been well controlled on carvedilol. 5. Asthma. No evidence of exacerbation. We will continue with his current therapy. 6. History of non-ST segment elevation [place]. Continue with carvedilol. 7. Peripheral vascular disease. Continue with wound care as above. DVT prophy: Heparin 5000 units every 8 hours Dispo: Pending placement for outpatient dialysis chair. I saw and evaluated the patient. I agree with the findings and plan of care as documented in the above note VS,Misbahbone, I+O VS, Fishbone, I+O Laboratory Tests 07/28/19 06:11 Red Blood Count 3.17 L, Mean Corpuscular Volume 88.3, Mean Corpuscular Hemoglobin 28.4, Mean Corpuscular Hemoglobin Concent 32.1, Red Cell Distribution Width 13.4, Calcium Level 8.3 L Vital Signs Date Time Temp Pulse Resp B/P (MAP) Pulse Ox O2 Delivery O2 Flow Rate FiO2 07/28/19 08:35 78 173/85 07/28/19 06:35 98.8 16 96 07/24/19 10:55 2 07/23/19 17:03 Room Air I&O- Last 24 Hours up to 6 AM 07/28/19 06:00 Intake Total 1450 ml Output Total 3250 ml Balance -1800 ml JACKELYN ODOM DO Jul 28, 2019 11:26 SUDHA TIWARI MD Aug 01, 2019 10:30
--- NOTE | 2019-07-28 11:57 | IPNPDOC ---
Date Seen The patient was seen on 07/28/19. Progress Note Vascular Surgery Dr Dave HPI: 54year oldM with ESRD, vacular surgery requested to evaluate for HD access 07/23/19 S/P Permcath placement as per Dr Dave 07/24/19. The pt is known to have chronic wound of RLE with plan for angiogram as per Dr Dave 07/29/19 to further evaluate. No acute medical complaints today. Denies any fevers, chills, weakness, fatigue, Headache, Chest Pain, Shortness of breath, cough, palpitations, abdominal pain, N/V/D or changes in bowel or bladder habits. PE: GEN: 54yoM Alert and oriented x 3. HEENT: Normocephalic, atraumatic. Moist mucous membranes. CHEST: Regular rate and rhythm, +S1, +S2 LUNGS: Clear to auscultation bilaterally. No wheezes, rales, or rhonchi. ABD: Round, soft, non-tender, non-distended. EXT: BLEs are bandaged to knees. NEURO: Alert and oriented x 3. No focal deficits appreciated. A&P: 1. ESRD S/P Permcath placement as per Dr Dave 07/24/19. HD as per Nephrology. 2. PAD/Wound RLE. Plan for Angiogram as per Dr Dave 07/29/19 to further asses. Continue wound care. Pt was referred to Dr Powers as outpt for Wound mgmt. VS, I&O, 24H, Fishbone Vital Signs/I&O Vital Signs Date Time Temp Pulse Resp B/P (MAP) Pulse Ox O2 Delivery O2 Flow Rate FiO2 07/28/19 08:35 78 173/85 07/28/19 06:35 98.8 16 96 07/24/19 10:55 2 07/23/19 17:03 Room Air I&O- Last 24 Hours up to 6 AM 07/28/19 06:00 Intake Total 1450 ml Output Total 3250 ml Balance -1800 ml Laboratory Data 24H LABS Laboratory Tests 2 07/27/19 17:53: Bedside Glucose (Misc Panel) 140H 07/27/19 20:06: Bedside Glucose (Misc Panel) 243H 07/28/19 06:11: Nucleated Red Blood Cells % (auto) 0.7H, Anion Gap 7L, Glomerular Filtration Rate 16.4L, Blood Urea Nitrogen 64H, Creatinine 4.09H, Sodium Level 140, Potassium Level 4.5, Chloride Level 107, Carbon Dioxide Level 26, Calcium Level 8.3L CBC/BMP Laboratory Tests 07/28/19 06:11 Red Blood Count 3.17 L, Mean Corpuscular Volume 88.3, Mean Corpuscular Hemoglob in 28.4, Mean Corpuscular Hemoglobin Concent 32.1, Red Cell Distribution Width 13.4, Calcium Level 8.3 L Katherine Aponte Jul 28, 2019 11:57 Rancho Dave MD Aug 04, 2019 21:20
[2019-07-28] MEDS ORDERED: LIDOCAINE 2% MDV 20 ML VIAL As Ordered ONE (12:51)
[2019-07-28] MEDS ORDERED: ISOVUE-300 61% 50ML VIAL (Q9967) As Ordered ONE (12:51)
[2019-07-28] MEDS ORDERED: BUPIVACAINE HCL 0.5% 10 ML VIAL As Ordered ONE (12:51)
[2019-07-28] MEDS ORDERED: fentaNYL 100 MCG/2 ML INJECTION (J3010) As Ordered ONE (13:21)
[2019-07-28] MEDS ORDERED: diphenhydrAMINE INJ 50MG/ML VIAL (J1200) As Ordered ONE (13:21)
[2019-07-28] MEDS ORDERED: MIDAZOLAM INJ 2 MG/2 ML VIAL (J2250) As Ordered ONE (13:22)
[2019-07-28] MEDS ORDERED: HEPARIN 1,000 UNITS/ML 10ML VIAL (FOR RADIOLOGY& DIALYSIS ONLY) As Ordered ONE (13:22)
[2019-07-28 15:15] VITALS: BP 149/59
--- NOTE | 2019-07-28 20:41 | IPN ---
DATE: 07/28/2019 SUBJECTIVE: The patient was seen and examined the bedside today morning during rounds. The patient is afebrile, hemodynamically stable. He was dialyzed yesterday. He tolerated the hemodialysis procedure well. He reports that he had leg cramps at the end of dialysis. Leg edema is improving. He continues to get wound care and compression dressings for lower extremity edema and ulcers. He denies any other active complaints. OBJECTIVE: Vital signs: Temperature is 98 degrees Fahrenheit, blood pressure 149/59, pulse is 67, respiratory rate of 18, saturating 98% on room air. Intake and output: Urine output recorded is 500 mL so far today since overnight. Weight in the bed scale is not available. Ultrafiltration with hemodialysis was 2 liters yesterday. PHYSICAL EXAMINATION: GENERAL: The patient is awake, alert, oriented times three, sitting up in the bed in no apparent distress. HEAD AND NECK: Extraocular muscles intact. Pupils equally round and reactive to light. Neck is supple. She has a right internal jugular (IJ) tunneled hemodialysis catheter. CARDIOVASCULAR: S1, S2, regular rate. Edema 2+ of the bilateral lower extremities, which are covered in dressing. RESPIRATORY: Chest is clear to auscultation bilaterally. Bilateral equal air entry. No rales or rhonchi. ABDOMEN: Soft. Positive bowel sounds. Nontender. No organomegaly. MUSCULOSKELETAL: Both legs are covered in dressings. CENTRAL NERVOUS SYSTEM: No focal deficit. Power is 5/5 in bilateral upper extremities. LABORATORY REVIEW: CBC showed WBC 9.1, hemoglobin is 9, platelets are 189. BMP showed sodium 140, potassium 4.5, chloride 107, bicarbonate 26, BUN 64, creatinine is 4, calcium 8.3. CURRENT INPATIENT MEDICATIONS: The patient's medications were all reviewed by me. There is no change in the medications today as compared with yesterday. ASSESSMENT AND PLAN: 1. End-stage renal disease. The patient is hemodialysis dependent. He gets dialyzed via the right IJ tunneled hemodialysis catheter. He was dialyzed yesterday. Next hemodialysis will be done tomorrow morning. 2. Anemia in end-stage renal disease. The patient is on Aranesp and Venofer. Hemoglobin is stable and improving. 3. Lower extremity edema and volume overload. The patient got 2 liters of fluid removed with dialysis yesterday. Next dialysis will be tomorrow. Continue the fluid restriction.
[2019-07-28 22:00] VITALS: BP 148/73
[2019-07-29 06:00] VITALS: BP 152/78
[2019-07-29] MEDS: HEPARIN SOD (PORCINE) 5000 UNITS/ML VIAL SC SCH ×3 (06:04→21:15)
[2019-07-29] MEDS: CARVedilol 12.5 MG TAB PO SCH ×2 (06:10→21:14)
[2019-07-29] MEDS: CALCIUM ACETATE 667 MG GELCAP PO SCH ×3 (06:58→18:03)
[2019-07-29 07:00] LABS: HEMATOCRIT 30.3 % (42.0-52.0); HEMOGLOBIN 9.6 g/dl (13.5-17.5); MEAN CORPUSCULAR HEMOGLOBIN 27.9 pg (27.0-33.0); MEAN CORPUSCULAR HGB CONC 31.7 g/dl (32.0-36.5); MEAN CORPUSCULAR VOLUME 88.1 fl (80.0-96.0); PLATELET COUNT, AUTOMATED 215 10^3/uL (150-450); RED BLOOD COUNT 3.44 10^6/uL (4.30-6.10)
[2019-07-29 07:21] LABS: CALCIUM LEVEL 8.4 MG/DL (8.5-10.1); CREATININE FOR GFR 4.52 MG/DL (0.70-1.30); GLOMERULAR FILTRATION RATE 14.7 (>56); POTASSIUM SERUM 5.1 MEQ/L (3.5-5.1)
[2019-07-29] MEDS: ADVAIR HFA 230/21MCG INHALER INH SCH ×2 (07:23→19:38)
[2019-07-29] MEDS: LEVEMIR (INSULIN DETEMIR) 1 UNITS/0.01ML SC SCH ×2 (08:14→21:15)
[2019-07-29] MEDS: HumaLOG INSULIN (NovoLOG) PER UNIT SC SCH ×4 (08:15→21:15)
--- NOTE | 2019-07-29 10:08 | IPNPDOC ---
Date Seen The patient was seen on 07/29/19. Progress Note Vascular Surgery Dr Dave HPI: 54year oldM with ESRD, vacular surgery requested to evaluate for HD access 07/23/19 S/P Permcath placement as per Dr Dave 07/24/19. The pt is known to have chronic wound of RLE S/P angiogram as per Dr Dave 07/28/19. No intervention necessary. PE: GEN: 54yoM Alert and oriented x 3. HEENT: Normocephalic, atraumatic. Moist mucous membranes. CHEST: Regular rate and rhythm, +S1, +S2 LUNGS: Clear to auscultation bilaterally. EXT: BLEs are bandaged to knees. Angiogram RLE 07/28/19. Report pending. A&P: 1. ESRD S/P Permcath placement as per Dr Dave 07/24/19. Will plan to arrange AVF creation as per Dr Dave as outpt. HD as per Nephrology. 2. PAD/Wound RLE. S/P Angiogram as per Dr Dave 07/28/19 with no intervention necessary. No report available at this time. Continue wound care. Pt has been referred to Dr Powers as outpt for Wound mgmt. Outpatient follow-up with Dr. Powers for chronic wounds of lower extremities at discharge. Reconsult vascular as needed. VS, I&O, 24H, Fishbone Vital Signs/I&O Vital Signs Date Time Temp Pulse Resp B/P (MAP) Pulse Ox O2 Delivery O2 Flow Rate FiO2 07/29/19 06:10 93 152/78 07/29/19 06:00 97.9 16 97 07/28/19 14:31 2 07/23/19 17:03 Room Air I&O- Last 24 Hours up to 6 AM 07/29/19 06:00 Intake Total 1560 ml Output Total 1550 ml Balance 10 ml Laboratory Data 24H LABS Laboratory Tests 2 07/28/19 12:04: Bedside Glucose (Misc Panel) 209H 07/28/19 17:01: Bedside Glucose (Misc Panel) 101 07/28/19 20:24: Bedside Glucose (Misc Panel) 228H 07/29/19 06:37: Nucleated Red Blood Cells % (auto) 0.4H, Anion Gap 6L, Glomerular Filtration Rate 14.7L, Blood Urea Nitrogen 80H, Creatinine 4.52H, Sodium Level 138, Potassium Level 5.1, Chloride Level 107, Carbon Dioxide Level 25, Calcium Level 8.4L 07/29/19 08:24: CBC/BMP Laboratory Tests 07/29/19 06:37 Red Blood Count 3.44 L, Mean Corpuscular Volume 88.1, Mean Corpuscular Hemoglobin 27.9, Mean Corpuscular Hemoglobin Concent 31.7 L, Red Cell Distribution Width 13.7, Calcium Level 8.4 L Katherine Aponte Jul 29, 2019 10:08 Rancho Dave MD Aug 04, 2019 21:19
[2019-07-29] MEDS ORDERED: HEPARIN 1,000 UNITS/ML 10ML VIAL (FOR RADIOLOGY& DIALYSIS ONLY) IV ONE (10:30)
[2019-07-29] MEDS ORDERED: HEPARIN 1,000 UNITS/ML 10ML VIAL (FOR RADIOLOGY& DIALYSIS ONLY) XX ONE (10:30)
--- NOTE | 2019-07-29 11:39 | IPNPDOC ---
Text Note Date of Service The patient was seen on 07/29/19. NOTE Subjective: Patient says he is feeling "blah" today. Patient has not received dialysis since Saturday. Patient does not have any outward signs of infection just feels more tired. Patient's does not complain of any pain in his wounds. He is not complaining of any coughing or feeling like he is feverish. Patient was able to eat and drink without any difficulty. Patient is going to the bathroom without any difficulty. There was no acute events overnight. I went back to examine the patient after he had dialysis later on in the afternoon. Patient was feeling much better after dialysis. Review of systems General: Patient denies fevers HEENT: Patient denies headaches Cardiovascular: Patient denies chest pain Respiratory: Patient denies shortness of breath, cough GI: Patient denies abdominal pain, nausea, vomiting, diarrhea : Patient denies pain or difficulty with urination Neurological: Patient denies numbness or tingling in extremities Extremities: Patient says the swelling is going down in his legs. The wounds are not bothering him. Objective: Vitals: (see below) General: No acute distress, sitting over the side of his bed. HEENT: Normocephalic, atraumatic, moist mucous membranes. Neck: No JVD or lymphadenopathy Cardiac: RRR, No murmurs Pulm: Clear to auscultation b/l. No wheezing, rhonchi Abd: NT/ND + BS Ext: Patient's extremities are much less swollen. The small superficial wounds that he had on his left leg are completely scabbed over. The wound on the late ral side of the right leg shows healthy granulation tissue with fresh blood when the dressing was taken off. This is much improved from previous exams. Labs (see below) Images: No new imaging has been performed. Assessment/Plan 1. Acute on chronic renal failure. Patient is now dialysis dependent. Status post permacath placement 07/24/[address] Dave. Patient be dialyzed today. We are awaiting an outpatient dialysis chair. Nephrology is following the patient and we appreciate their help treating the patient. 2. Chronic bilateral lower extremity wounds. Patient is getting his dressing changed today. We will continue to monitor. 3. Insulin-dependent diabetes mellitus. Patient is on 55 units of Levemir twice a day and a sliding scale coverage. 4. Hypertension. Blood pressure has been well controlled on carvedilol. 5. Asthma. No evidence of exacerbation. We will continue his current therapy. 6. History of non-ST segment elevation [place]. Continue with carvedilol. 7. Peripheral vascular disease. Continue with wound care as above. DVT prophy: Heparin 5000 units every 8 hours Dispo: Pending placement in outpatient dialysis chair I saw and evaluated the patient. I agree with the findings and plan of care as documented in the above note Emilie CARMICHAEL, I+O VSEmilie, I+O Laboratory Tests 07/29/19 06:37 Red Blood Count 3.44 L, Mean Corpuscular Volume 88.1, Mean Corpuscular Hemoglobin 27.9, Mean Corpuscular Hemoglobin Concent 31.7 L, Red Cell Distribution Width 13.7, Calcium Level 8.4 L Vital Signs Date Time Temp Pulse Resp B/P (MAP) Pulse Ox O2 Delivery O2 Flow Rate FiO2 07/29/19 06:10 93 152/78 07/29/19 06:00 97.9 16 97 07/28/19 14:31 2 07/23/19 17:03 Room Air I&O- Last 24 Hours up to 6 AM 07/29/19 05:59 Intake Total 1710 ml Output Total 1050 ml Balance 660 ml JACKELYN ODOM DO Jul 29, 2019 11:39 SUDHA TIWARI MD Aug 01, 2019 10:36
--- NOTE | 2019-07-29 13:11 | IPN ---
DATE OF SERVICE: 07/29/2019 SUBJECTIVE: The patient was seen and examined at the bedside today morning. The patient reports that he feels slightly nauseated today. He otherwise denies any active complaints. He is going to be dialyzed today in the afternoon. OBJECTIVE: Vital Signs: Temperature is 97.9 degrees Fahrenheit. Blood pressure 152/78, pulse is 93, respiratory rate of 16, saturating 97% on room air. Intake and Output: Urine output recorded is 500 mL, weight in the bed scale is 124 kg. PHYSICAL EXAMINATION: General: The patient is awake, alert, oriented times three, sitting up in the bed in no apparent distress. Head and Neck Exam: Extraocular muscles intact. Pupils equally round and reactive to light. Mucous membranes are moist. Neck is supple. Right IJ tunneled hemodialysis catheter. Cardiovascular: S1 and S2, regular rate. 2+ edema of the bilateral lower extremities. Respiratory: Chest is clear to auscultation bilaterally. Bilateral equal air entry. No rales or rhonchi. Abdomen: Soft. Positive bowel sounds. Nontender. No organomegaly. Musculoskeletal: Both legs are covered with dressings because of ulcers and swelling. LAN/WAN ENGINEER: No focal deficit. Power is 5/5 in all extremities. LAB REVIEW: CBC showed a WBC of 11, hemoglobin 9.6, platelets of 215. BMP showed sodium 138, potassium 5.1, chloride 107, bicarb 25, BUN 80, and creatinine is 4.5. CURRENT INPATIENT MEDICATIONS: The patient's medications were all reviewed by me. There is no change in the medications today as compared with yesterday. ASSESSMENT/PLAN: 1. End-stage renal disease. The patient is dialysis dependent. He will be dialyzed today. Ultrafiltration goal will be 2 liters as tolerated by his blood pressure. He is pending outpatient dialysis placement. 2. Anemia in end-stage renal disease. The patient is getting Aranesp and Venofer. Hemoglobin level is stable and improving. 3. Lower extremity edema. Volume status is getting better, 2 liters of fluid will be removed today. I am also going to start the patient on a daily diuretic dose.
[2019-07-29] MEDS: TORSEMIDE 20 MG TAB PO SCH (15:38)
[2019-07-29 21:02] VITALS: BP 158/84
[2019-07-30] MEDS: HEPARIN SOD (PORCINE) 5000 UNITS/ML VIAL SC SCH ×3 (05:32→21:21)
[2019-07-30 05:38] VITALS: BP 142/71
[2019-07-30 06:58] LABS: HEMATOCRIT 27.4 % (42.0-52.0); HEMOGLOBIN 8.6 g/dl (13.5-17.5); MEAN CORPUSCULAR HEMOGLOBIN 27.7 pg (27.0-33.0); MEAN CORPUSCULAR HGB CONC 31.4 g/dl (32.0-36.5); MEAN CORPUSCULAR VOLUME 88.4 fl (80.0-96.0); PLATELET COUNT, AUTOMATED 180 10^3/uL (150-450); WHITE BLOOD COUNT 9.4 10^3/uL (4.0-10.0)
[2019-07-30 07:35] LABS: CREATININE FOR GFR 4.4 MG/DL (0.70-1.30); GLOMERULAR FILTRATION RATE 15.1 (>56); POTASSIUM SERUM 4.5 MEQ/L (3.5-5.1)
[2019-07-30] MEDS: ADVAIR HFA 230/21MCG INHALER INH SCH ×2 (08:30→20:52)
[2019-07-30] MEDS: HumaLOG INSULIN (NovoLOG) PER UNIT SC SCH ×4 (08:47→21:00)
[2019-07-30] MEDS: CALCIUM ACETATE 667 MG GELCAP PO SCH ×3 (08:48→18:22)
[2019-07-30] MEDS: TORSEMIDE 20 MG TAB PO SCH (08:48)
[2019-07-30] MEDS: CARVedilol 12.5 MG TAB PO SCH ×2 (08:48→21:21)
[2019-07-30] MEDS: LEVEMIR (INSULIN DETEMIR) 1 UNITS/0.01ML SC SCH ×2 (08:48→21:21)
[2019-07-30] MEDS ORDERED: ONDANSETRON 4MG/2ML VIAL (J2405) IV PRN (09:15)
[2019-07-30] MEDS ORDERED: HEPARIN 1,000 UNITS/ML 10ML VIAL (FOR RADIOLOGY& DIALYSIS ONLY) IV ONE (11:15)
[2019-07-30] MEDS ORDERED: HEPARIN 1,000 UNITS/ML 10ML VIAL (FOR RADIOLOGY& DIALYSIS ONLY) XX ONE (11:15)
--- NOTE | 2019-07-30 13:21 | IPN ---
DATE OF SERVICE: 07/30/2019 SUBJECTIVE: The patient was seen and examined at the bedside today morning. He is afebrile, hemodynamically stable. He was dialyzed yesterday; 2 liter of fluid was removed. He reports that he was dizzy after dialysis overnight. Otherwise, he reports that his symptoms have improved today. Leg edema is significantly better. The patient's outpatient dialysis schedule is going to be Saturday, , Saturday and I talked to the patient to put him on TTS schedule and he agreed to have another dialysis done today. OBJECTIVE: Vital signs: Temperature is 96 degenerative, blood pressure 142/71, pulse is 63, respiratory rate of 20, saturating 96% on room air. Intake and output: Urine output recorded is 600 mL. Fluid removal with dialysis was 2 liters. Weight in the bed scale is 126 kg. PHYSICAL EXAM: General: The patient is awake, alert, oriented times three, sitting up in the bed, in no apparent distress. Head and neck exam: Extraocular muscles intact. Pupils equally round and reactive to light. Mucous membranes are moist. Neck is supple. He has a right internal jugular (IJ) tunneled hemodialysis catheter. Cardiovascular: S1, S2, regular rate. 1+ edema of the bilateral lower extremities. Respiratory: Chest is clear to auscultation bilaterally. Bilateral equal air entry. No rales or rhonchi. Abdomen: Soft. Positive bowel sounds. Nontender. No organomegaly. Musculoskeletal: Both leg are covered with dressings. Central nervous system (GENERAL MANAGER): No focal deficit. Power is 5/5 in all extremities. LAB REVIEW: CBC showed WBC 9.4, hemoglobin 8.6, platelets of 180. BMP showed sodium 141, potassium 4.5, chloride 108, bicarbonate 27, BUN 61, creatinine is 4.4. CURRENT INPATIENT MEDICATIONS: The patient's medications were all reviewed by me. There is no change in the medications today as compared with yesterday. ASSESSMENT AND PLAN: 1. End-stage renal disease. The patient is getting dialysis now. He was dialyzed yesterday, however, to put them on his Saturday, , Saturday schedule he will be dialyzed again today. Minimal ultrafiltration will be done, around 500 mL as tolerated. 2. Anemia in end-stage renal disease. Continue current dose of Aranesp and Venofer. 3. Lower extremity edema. Edema is significantly better. Fluid removal today will be 500 mL only.
--- NOTE | 2019-07-30 13:59 | IPNPDOC ---
Text Note Date of Service The patient was seen on 07/30/19. NOTE Subjective: The patient was seen and examined at bedside today. Patient apparently has been having episodes of nausea and dry heaving after taking his medications. He dry heaves for a little bit and then feels much better and is able to eat breakfast. This was happening while in the room today. I offered the patient Zofran but the patient refused. A few minutes later, the patient was fine and not complaining of any pain. There is no acute events overnight. Review of systems General: Patient denies fevers HEENT: Patient denies headaches Cardiovascular: Patient denies chest pain Respiratory: Patient denies shortness of breath, cough GI: Patient has some nausea with dry heaving after his medications however, he is fine shortly thereafter. : Patient denies pain or difficulty with urination Neurological: Patient denies numbness or tingling in extremities Extremities: Patient's swelling has improved per the patient. Objective: Vitals: (see below) General: No acute distress, laying comfortably in bed. HEENT: Normocephalic, atraumatic, moist mucous membranes. Neck: No JVD or lymphadenopathy Cardiac: RRR, No murmurs Pulm: Clear to auscultation b/l. No wheezing, rhonchi Abd: NT/ND + BS Ext: Patient's swelling has improved per physical exam. The legs were wrapped in tubi motor vehicle license clerk and in the dressing was dry. Labs (see below) Images: No new imaging is performed. Assessment/Plan 1. Acute on chronic renal failure. Patient is on dialysis dependent. Patient had a permacath placed on 07/24/[address] Dave. Patient was dialyzed today. Patient does have an outpatient dialysis chair set up on a Saturday, , Saturday schedule. Patient's ability discharged tomorrow. 2. Chronic bilateral lower extremity wounds. Patient is getting his dressing changed every other day. We'll continue to monitor. The wounds are healing. 3. Insulin-dependent diabetes mellitus. Patient is a 55 units of Levemir twice a day and a sliding scale coverage. Patient is stable. 4. Hypertension. Blood pressure has been well controlled on carvedilol. 5. Asthma. No evidence of exacerbation. We will continue his current therapy. 6. History of non-ST segment elevation [place]. Continue with carvedilol. 7. Peripheral vascular disease. Continue wound care as above. DVT prophy: Heparin 5000 units every 8 hours Dispo: Discharge most likely tomorrow. I saw and evaluated the patient. I agree with the findings and plan of care as documented in the above note VS,Emilie, I+O VS, Emilie, I+O Laboratory Tests 07/30/19 06:28 Red Blood Count 3.10 L, Mean Corpuscular Volume 88.4, Mean Corpuscular Hemoglobin 27.7, Mean Corpuscular Hemoglobin Concent 31.4 L, Red Cell Distribution Width 13.8, Calcium Level 8.0 L Vital Signs Date Time Temp Pulse Resp B/P (MAP) Pulse Ox O2 Delivery O2 Flow Rate FiO2 07/30/19 08:48 63 142/71 07/30/19 05:38 96.0 20 96 07/28/19 14:31 2 I&O- Last 24 Hours up to 6 AM 07/30/19 06:00 Intake Total 1140 ml Output Total 2600 ml Balance -1460 ml JACKELYN ODOM DO Jul 30, 2019 13:59 SUDHA TIWARI MD Aug 01, 2019 10:41
[2019-07-30 20:18] VITALS: BP 165/88
[2019-07-31 06:22] VITALS: BP 148/76
[2019-07-31] MEDS: HEPARIN SOD (PORCINE) 5000 UNITS/ML VIAL SC SCH (06:22)
[2019-07-31] MEDS: HumaLOG INSULIN (NovoLOG) PER UNIT SC SCH (07:30)
[2019-07-31] MEDS: ADVAIR HFA 230/21MCG INHALER INH SCH (07:33)
[2019-07-31 07:41] LABS: HEMATOCRIT 29.5 % (42.0-52.0); HEMOGLOBIN 9.4 g/dl (13.5-17.5); MEAN CORPUSCULAR HEMOGLOBIN 28.6 pg (27.0-33.0); MEAN CORPUSCULAR HGB CONC 31.9 g/dl (32.0-36.5); MEAN CORPUSCULAR VOLUME 89.7 fl (80.0-96.0); PLATELET COUNT, AUTOMATED 175 10^3/uL (150-450); RED BLOOD COUNT 3.29 10^6/uL (4.30-6.10); WHITE BLOOD COUNT 9.1 10^3/uL (4.0-10.0)
[2019-07-31 08:02] LABS: CALCIUM LEVEL 7.9 MG/DL (8.5-10.1); CREATININE FOR GFR 3.77 MG/DL (0.70-1.30); GLOMERULAR FILTRATION RATE 18.1 (>56); POTASSIUM SERUM 4.4 MEQ/L (3.5-5.1)
[2019-07-31] MEDS: TORSEMIDE 20 MG TAB PO SCH (09:54)
[2019-07-31 09:55] VITALS: BP 145/79
[2019-07-31] MEDS: CALCIUM ACETATE 667 MG GELCAP PO SCH (09:55)
[2019-07-31] MEDS: CARVedilol 12.5 MG TAB PO SCH (09:55)
[2019-07-31] MEDS ORDERED: TORS20TA2 PO (10:17)
--- NOTE | 2019-07-31 11:43 | IPN ---
DATE: 07/31/2019 SUBJECTIVE: The patient was seen and examined the bedside this morning. He was dialyzed yesterday. He tolerated the hemodialysis procedure well. Outpatient schedule is going to be Saturday, , Saturday dialysis. The patient is getting ready to be discharged from the hospital. He will be dialyzed tomorrow as outpatient. OBJECTIVE: VITAL SIGNS: Temperature is 97 degrees Fahrenheit, blood pressure 148/76, pulse is 70, respiratory of 18, saturating 96% on room air. Intake and output: Urine output recorded is 725 mL. Ultrafiltration with dialysis was 500 mL weight in the bed scale is not available. PHYSICAL EXAMINATION: GENERAL: The patient is awake, alert, oriented times three, sitting up in the bed in no apparent distress. HEAD AND NECK EXAM: Extraocular muscles intact. Pupils equally round and reactive to light. Mucous membranes are moist. NECK: Neck is supple. No jugular venous distention (JVD). CARDIOVASCULAR: S1, S2 regular rate, 1+ edema of the low lower extremities. RESPIRATORY: Chest is clear to auscultation bilaterally. Bilateral equal air entry. No rales or rhonchi. ABDOMEN: Soft. Positive bowel sounds. Nontender. No organomegaly. MUSCULOSKELETAL: Both legs are covered with dressings. CENTRAL NERVOUS SYSTEM (BUILDING SUPPLIES SALESPERSON RETAIL): No focal deficit. Power is 5/5 in all extremities. LAB REVIEW: CBC showed WBC 9.1, hemoglobin 9.4, platelets of 175. BMP showed sodium 142, potassium 4.4, chloride 108, bicarb 28, BUN 58, creatinine is 3.7, calcium is 7.9. CURRENT INPATIENT MEDICATIONS: The patient's medications were all reviewed by me. There is no change in the medications today as compared with yesterday. ASSESSMENT/PLAN: 1. End-stage renal disease: The patient is going to have Saturday, , Saturday schedule as outpatient. He was dialyzed yesterday. Next dialysis will be tomorrow. 2. Anemia and end-stage renal disease: Continue Aranesp and Venofer. Rest of the anemia management will be done as outpatient. Hemoglobin level is improving. 3. Lower extremity edema: Continue current dose of torsemide 40 mg by mouth daily and dry weight to be adjusted ( dialyzed as outpatient). DISPOSITION: It is okay to discharge the patient from nephrology standpoint. I discussed with vascular surgery and they will place the AV fistula as outpatient early next week.
--- NOTE | 2019-07-31 17:18 | DS.PDOC ---
Discharge Summary General Date of Admission Jul 23, 2019 at 14:58 Date of Discharge 07/31/19 Attending Physician: SUDHA TIWARI MD Specialist/Consultants Involve: Tom Shaw MD Specialist/Consultants Involve Sandra Balderrama MD; Rancho Dave MD Discharge Summary PROCEDURES PERFORMED DURING STAY: Permacath placement by Dr. Dave ADMITTING/DISCHARGE DIAGNOSES: 1. Acute on chronic renal failure requiring new onset dialysis 2. Chronic bilateral lower extremity wounds 3. Insulin-dependent diabetes mellitus 4. Hypertension 5. Asthma 6. History of non-ST segment elevation [place] 7. Peripheral vascular disease COMPLICATIONS/CHIEF COMPLAINT: Abnormal laboratory studies HISTORY OF PRESENT ILLNESS/HOSPITAL COURSE: Patient is a 54-year-old male who was sent to the emergency room 8 days prior to discharge by Dr. Powers for elevated BUNs/creatinine and decreased EGFR. Dr. Hall is taking care of the patient for chronic lower extremity wounds and ordered some labs which showed the patient to have an EGFR less than 15. Dr. Hall then contacted Dr. Shaw of nephrology who advised the patient go to the emergency room to be admitted in the hospital for the onset of dialysis. While in the hospital, patient had a permacath placed by Dr. Dave of vascular surgery. Patient began dialysis and received dialysis 5 times. Patient was stable throughout his hospitalization and there was no adverse effects to the dialysis. Patient did have his wound dressings changed every other day as instructed by Dr. Powers. Throughout his hospitalization the wounds did improve based on physical exam. Patient never really felt ill during his hospitalization. Discharge planners were able to set up a dialysis chair on a Saturday, , Saturday schedule and the patient was deemed ready for discharge today with plan for him to get dialysis tomorrow. DISCHARGE MEDICATIONS: Please see below. ALLERGIES: Please see below. PHYSICAL EXAMINATION ON DISCHARGE: Vitals: (see below) General: No acute distress, laying comfortably in bed. HEENT: Moist mucous membranes. Neck: No JVD or lymphadenopathy Cardiac: RRR, No murmurs Pulm: Clear to auscultation b/l. No wheezing, rhonchi Abd: NT/ND + BS Ext: Patient's wounds wrapped and Tubigrip and the dressings were not soiled. The swelling has improved. LABORATORY DATA: Please see below. IMAGING: A renal ultrasound performed on 07/23/2019 showed hyperechoic renal cortices compatible with medical renal disease and no hydronephrosis. PROGNOSIS: Fair ACTIVITY: As tolerated. DIET: Renal diet, consistent carbohydrates DISCHARGE PLAN/DISPOSITION: Discharge home DISCHARGE INSTRUCTIONS: 1. Attend dialysis on a Saturday, , Saturday schedule. Attend scheduled dialysis tomorrow. 2. Follow-up with nephrology as scheduled. 3. Follow-up with Dr. Dave of vascular surgery for AV fistula formation. 4. Follow-up with Dr. Powers for continued wound care. 5. Follow-up with primary care provider within 5-10 days. 6. Return to the emergency department if symptoms worsen. DISCHARGE CONDITION: Stable. I saw and evaluated the patient. I agree with the findings and plan of care as documented in the documenters note. I spent 45 minutes coordinating this patient's discharge. Vital Signs/I&Os Vital Signs Date Time Temp Pulse Resp B/P (MAP) Pulse Ox O2 Delivery O2 Flow Rate FiO2 07/31/19 09:55 76 145/79 07/31/19 06:22 97.0 18 96 07/28/19 14:31 2 I&O- Last 24 Hours up to 6 AM 07/31/19 05:59 Intake Total 1980 ml Output Total 1300 ml Balance 680 ml Laboratory Data Labs 24H Laboratory Tests 2 07/30/19 20:16: Bedside Glucose (Misc Panel) 216H 07/31/19 06:10: Bedside Glucose (Misc Panel) 97 07/31/19 07:30: Nucleated Red Blood Cells % (auto) 0.9H, Anion Gap 6L, Glomerular Filtration Rate 18.1L, Blood Urea Nitrogen 58H, Creatinine 3.77H, Sodium Level 142, Potassium Level 4.4, Chloride Level 108H, Carbon Dioxide Level 28, Calcium Level 7.9L 07/31/19 12:01: Bedside Glucose (Misc Panel) 241H CBC/BMP Laboratory Tests 07/31/19 07:30 Red Blood Count 3.29 L, Mean Corpuscular Volume 89.7, Mean Corpuscular Hemoglobin 28.6, Mean Corpuscular Hemoglobin Concent 31.9 L, Red Cell Distribution Width 13.9, Calcium Level 7.9 L FSBS Laboratory Tests Test 07/30/19 20:16 07/31/19 06:10 07/31/19 12:01 Range/Units Bedside Glucose (Misc Panel) 216 97 241 70-105 MG/DL Discharge Medications Scheduled Calcium Acetate (Calcium Acetate) 667 Mg Tablet, 667 MG PO WM, (Reported) Carvedilol (Carvedilol) 12.5 Mg Tablet, 12.5 MG PO BID, (Reported) Fluticasone Propion/Salmeterol (Advair Hfa 230-21 Mcg Inhaler) 12 Gm Hfa.aer.ad, 2 PUFF INH BID, (Reported) Insulin Aspart (Novolog Flexpen) 100 Unit/Ml Inj, 1 DOSE SC ACHS, (Reported) PER SLIDING SCALE Insulin Detemir (Levemir Flextouch) 100 Unit/1 Ml Insuln.pen, 55 UNIT SC BID, (Reported) Multivitamin (Chewable-Brian) 1 Each Tab.chew, 1 CHW PO DAILY, (Reported) Torsemide (Torsemide) 20 Mg Tablet, 40 MG PO DAILY Scheduled PRN Acetaminophen (Acetaminophen) 500 Mg Tablet, 1,000 MG PO Q6H PRN for PAIN, (Reported) Albuterol Sulfate (Ventolin Hfa) 108 Mcg/Act Aer, 2 PUFF INH Q4H PRN for SHORTNESS OF BREATH, (Reported) Allergies Coded Allergies: garlic (Verified Allergy, Intermediate, syncope, 07/23/19) silver (Verified Allergy, Intermediate, angulo, 07/23/19) aspirin (Verified Allergy, Unknown, 03/27/19) JACKELYN ODOM DO Jul 31, 2019 17:18 SUDHA TIWARI MD Aug 01, 2019 10:47
--- NOTE | 2019-08-05 10:41 | ROOPDOC ---
[facility] Report Of Operation Report of Operation DATE OF PROCEDURE: 07/28/2019 PREOPERATIVE DIAGNOSES: End-stage renal disease, diabetes mellitus, bilateral lower extremity venous valvular insufficiency, slow healing right calf venous stasis ulcer and left lower extremity claudication. POSTOPERATIVE DIAGNOSES: End-stage renal disease, diabetes mellitus, bilateral lower extremity venous valvular insufficiency, slow healing right calf venous stasis ulcer and left lower cavity claudication. PROCEDURE: Abdominal Aortogram Bilateral iliofemoral pelvic angiogram Selective right common femoral artery catheter placement with right lower extremity angiogram. Selective right superficial femoral artery catheter placement with right lower e xtremity angiogram. Left lower extremity angiogram via the left common femoral arterial sheath. Mynx closure of the left common femoral arteriotomy with a 5 Croatian minx closure device. SURGEON: Dr. Isabel Dave M.D. ASSEMBLY AND PACKING SUPERVISOR: Lan Guthrie and Lo Irizarry INDICATION: The patient is a 54-year-old male who is now reached end stage renal disease requiring renal replacement therapy who also has a history of diabetes mellitus atherosclerotic arterial occlusive disease with previous angioplasty and stenting of the right superficial femoral artery with venous valvular insufficiency in the lower extremities with a nonhealing ulcer in the right calf. The patient presents now with no onset end-stage renal disease requiring renal replacement therapy, swelling in the legs and nonhealing ulcer in the right calf with left lower extremity claudication. The patient will undergo a right lower extremity angiogram, possible left lower extremity angiogram with possible angioplasty, stent and/or atherectomy. The procedure was described and explained in detail to the patient including drawing of pictures demonstrating the procedure and pertinent anatomy. Risks, benefits and alternative treatment options were discussed with the patient. Alternative treatment options included but were not limited to no intervention. Benefits include but were not limited to evaluation of arterial flow through the aorta, iliac and femoral arteries into the lower extremities with possible intervention improving blood flow into the lower extremities with improved relief of symptoms, preventing tissue loss and prevention of possible limb loss. Risks included but were not limited to infection, bleeding, pseudoaneurysm formation, retroperitoneal hematoma, possible need for open surgical intervention, possible requirement for transfusion of blood products, allergic reaction and/or complication from IV contrast, allergic reaction and/or complication from the prepping and draping materials, sedation related complication, pain at the cannulation site, continued or worsening pain in the affected limb, scarring of the skin, bruising, nerve injury, anesthetic complications, cerebrovascular accident, myocardial infarction, pulmonary embolus, deep venous thrombosis, loss of limb, loss of life, poor satisfaction and poor outcome. Risks of not performing the procedure included but were not limited to worsening of current symptoms, worsening of atherosclerotic arterial occlusive disease resulting in possible ulceration and or limb loss and . Patient's questions were answered. Patient voices understanding of these risks, benefits and alternative treatment options. Patient voices acceptance of the risks associated with angiography with possible angioplasty, stent and/or atherectomy and agrees to proceed with the procedure excepting the associated risks of the procedure. No guarantees or promises were made to the patient regarding the results or outcome of the procedure. ANESTHESIA: Local with sedation with 2 mg of Versed, 100 g of fentanyl, Benadry l 50 mg and 20 mL of 2% lidocaine mixed with 0.5% Marcaine. SEDATION TIME: 1340 2 PM 01/08/2020 2 PM for a total of 44 minutes. The sedation was administered by the registered nurse attending the case under my direct supervision and direction. The cardiopulmonary monitoring during sedation was performed by registered nurse attending the case under my direct supervision and direction. Administration of sedation and cardiopulmonary monitoring were performed under my direct supervision and direction. I was present for and directed the entire case. There were no sedation related complications. Patient was stable post sedation and returned to pre-sedation status. ESTIMATED BLOOD LOSS: 10 mL. IV FLUIDS: 100 mL. HEPARIN:None PROTAMINE:None FLUORO TIME: 0.9 Minutes CONTRAST: 17 mL of Isovue-300 COMPLICATIONS: None DRAINS:None SPECIMENS:None IMPLANTS:Left common femoral arteriotomy closure with a 5 Croatian MYNX closure device PROCEDURE: Patient was taken to angiography suite and placed supine on the angiography room table. The patient was prepped and draped in a standard surgical fashion. A surgical timeout confirming the correct patient, procedure and laterality was performed by myself and the team members in the room. The left common femoral artery was then cannulated using a micropuncture needle after anesthetizing the overlying skin and subcutaneous tissue with 2% lidocaine mixed with 0.5% Marcaine. A micropuncture wire was advanced through the micropuncture needle which was upsized to a micropuncture sheath. The Duval wire was then advanced through the micropuncture sheath which was upsized to a 5 Croatian sheath. The Omni flush catheter was advanced over the Duval wire, placed in the aorta at the level of the diaphragm and an abdominal aortogram was performed. Catheter was then pulled down to the level of the bifurcation of the iliac arteries and and a bilateral iliofemoral pelvic angiogram was performed. Catheter was directed over the bifurcation of the iliac arteries using the Duval wire and placed into the right common femoral artery selectively and a selective right lower extremity angiogram was performed. The catheter was then advanced into the right superficial femoral artery selectively and a selective right superficial femoral artery angiogram with runoff was performed. Catheters and wires were then removed. The left lower extremity angiogram was then per formed through the left common femoral arterial sheath. The left common femoral arteriotomy was closed using a 5 Croatian minx closure device with an additional 10 minutes of adjunctive pressure applied for hemostasis which was noted. Patient tolerated the procedure well. All instrument, sponge and needle counts were correct at the end of the case. There were no complications. Dr. Dave was present for and directed the entire case. The patient was transferred to the recovery area and subsequently to the floor in stable condition. The procedure and results were explained and described to the patient in detail in the postprocedure holding area with all of his questions being answered. RADIOLOGIC SUPERVISION AND INTERPRETATION: ABDOMINAL AORTOGRAM: The aorta from the diaphragm to the renal arteries was widely patent as were the superior mesenteric and celiac arteries and both renal arteries. The renal arteries shortly after their origins both showed high-grade stenosis in the order of 70-80%. The infrarenal aorta was patent with good filling of the lumbar vessels. The inferior mesenteric artery was widely patent PELVIC AORTOGRAM AND BILATERAL ILIOFEMORAL ANGIOGRAPHY: This showed the common iliac external and internal iliac arteries to be widely patent bilaterally. SELECTIVE RIGHT COMMON FEMORAL ARTERY CATHETER PLACEMENT WITH SELECTIVE RIGHT COMMON FEMORAL ARTERY ANGIOGRAM: There was mild narrowing in the superficial femoral artery shortly after the takeoff from the common femoral artery which wa s approximately 10% the remainder of the superficial femoral artery was widely patent down to the previously stented portion which was also widely patent. The profunda femoris artery was widely patent. SELECTIVE RIGHT SUPERFICIAL FEMORAL ARTERY CATHETER PLACEMENT WITH SELECTIVE RIGHT SUPERFICIAL FEMORAL ARTERY ANGIOGRAM:The distal superficial femoral artery was patent into the popliteal artery which was widely patent in the above and below knee region. Runoff in the below-knee region was via three-vessel. The patient had a true trifurcation. The posterior tibial artery showed proximal and at 40% stenosis at its origin with diffuse atherosclerotic disease along its course down to the distal calf where the posterior tibial artery in the distal calf was widely patent the anterior tibial artery was patent to the midcalf weren't occluded and reconstituted distally via collaterals. The tibial peroneal trunk and peroneal arteries were severely diseased proximally and then patent for short segment and then smoothly disease distally. LEFT LOWER EXTREMITY ANGIOGRAM VIA THE LEFT COMMON FEMORAL ARTERIAL SHEATH: The left common femoral superficial femoral and profunda femoris arteries were widely patent down to the junction of the superficial femoral and popliteal artery which showed an approximate 60% stenosis the remainder of the above and below knee popliteal artery were patent. Runoff in the left lower extremity was via three-vessel's. The anterior tibial artery was patent to the mid calf where there was a high-grade stenosis followed by a tandem lesion distally. The tibial peroneal trunk was patent giving rise to a posterior tibial artery which was severely diseased along its course but patent into the foot. The tibial peroneal trunk and peroneal artery were severely diseased with the peroneal artery occluding in the upper third of the calf The arteriotomy in the left common femoral artery was closed using a 5 Croatian Mynx closure device. CONCLUSION: The patient has a patent right superficial femoral arterial stent and severe tibial peroneal atherosclerotic arterial occlusive disease in both lower extremities. PLAN: If the right calf wound continues to be slow or nonhealing the patient will require intervention on his tibial vessels with either tibial atherectomy and/or tibial bypass. Due to the risks associated with this I would refrain from performing this intervention until there are signs that his wounds are nonhealing. The patient just began hemodialysis and with decreased swelling in his extremities this should aid in the healing of his venous stasis ulcer but if it continues to be non-healing he will require intervention for his tibial vessels. The left lower extremity shows severe atherosclerotic arterial occlusive disease in the tibial vessels but the tissue patient at this point does not require intervention in this will be followed closely Rancho Dave MD Aug 04, 2019 21:23
== END 2019-07-31 12:50 | disposition home or self-care (01) | DRG 674 ==
LOC: M ED 12:53 → EEVIPCON 14:58 → M ED INP 14:58 → M MS5PR 17:20
PROVIDERS: ADMIT Internal Medicine; ATTEND Internal Medicine
PROC: 0JH63XZ Insertion of Tunneled Vascular Access Device into Chest Subcutaneous Tissue and Fascia, Percutaneous Approach (ICD-10-PCS; 2019-07-24)
PROC: 02HV33Z Insertion of Infusion Device into Superior Vena Cava, Percutaneous Approach (ICD-10-PCS; 2019-07-24)
PROC: 047K3Z6 (ICD-10-PCS; principal; 2019-07-28 12:40)
PROC: 5A1D70Z Performance of Urinary Filtration, Intermittent, Less than 6 Hours Per Day (ICD-10-PCS; 2019-07-30)
DX: N17.9 Acute kidney failure, unspecified (principal); I12.0 Hypertensive chronic kidney disease with stage 5 chronic kidney disease or end stage renal disease; N18.6 End stage renal disease; I25.2 Old myocardial infarction; J45.909 Unspecified asthma, uncomplicated; E11.51 Type 2 diabetes mellitus with diabetic peripheral angiopathy without gangrene; Z79.4 Long term (current) use of insulin; Z79.899 Other long term (current) drug therapy; Z88.6 Allergy status to analgesic agent; Z91.018 Allergy to other foods; L97.519 Non-pressure chronic ulcer of other part of right foot with unspecified severity; E11.21 Type 2 diabetes mellitus with diabetic nephropathy; Z91.19 Patient's noncompliance with other medical treatment and regimen; D63.1 Anemia in chronic kidney disease; E87.70 Fluid overload, unspecified; Z99.2 Dependence on renal dialysis

== ENCOUNTER → 2019-08-21 | Day surgery (SDC) | payer MEDICARE, MEDICAID ==
[~2019-08-21] VITALS: Ht 190.5 cm; Wt 104.3 kg
[~2019-08-21] MED LIST changes: +ACET-683 PO; +BRONCHW PO; +BUPIVACAINE HCL 0.5% 10 ML VIAL As Ordered ONE; +CALC667T2 PO; +CARV12.5 PO; +HEPARIN SOD (PORCINE) 5000 UNITS/ML VIAL As Ordered ONE; +LIDOCAINE 2% INJ 100 MG/5 ML SDV (FOR ANES.) As Ordered ONE; +LIDOCAINE 2% MDV 20 ML VIAL As Ordered ONE; +LR 1,000 ML IV ONE; +MIDAZOLAM INJ 2 MG/2 ML VIAL (J2250) As Ordered ONE; +ONDANSETRON 4MG/2ML VIAL (J2405) As Ordered ONE; +PROPOFOL 200 MG/20 ML VIAL As Ordered ONE; +ROCURONIUM BROMIDE 50 MG/5 ML VIAL As Ordered ONE; +dexameTHASONE 4 MG/ML 1ML VIAL (J1100) As Ordered ONE; +fentaNYL 100 MCG/2 ML INJECTION (J3010) As Ordered ONE
[2019-08-21 10:00] VITALS: BP 157/76
[2019-08-21 10:29] LABS: HEMATOCRIT 31.5 % (42.0-52.0); HEMOGLOBIN 10.4 g/dl (13.5-17.5); MEAN CORPUSCULAR HEMOGLOBIN 28.9 pg (27.0-33.0); MEAN CORPUSCULAR VOLUME 87.5 fl (80.0-96.0); PLATELET COUNT, AUTOMATED 181 10^3/uL (150-450); WHITE BLOOD COUNT 7.3 10^3/uL (4.0-10.0)
[2019-08-21 10:57] LABS: CREATININE FOR GFR 4.98 MG/DL (0.70-1.30); GLOMERULAR FILTRATION RATE 13.1 (>56); POTASSIUM SERUM 4.3 MEQ/L (3.5-5.1)
== END | disposition home or self-care (01) ==
LOC: M SDC 09:41
PROVIDERS: ATTEND Surgery Vascular Surgery
DX: N17.9 Acute kidney failure, unspecified (principal); Z53.29 Procedure and treatment not carried out because of patient's decision for other reasons

== ENCOUNTER → 2019-08-24 | Outpatient (CLI) | payer MEDICARE, MEDICAID ==
[~2019-08-24] MED LIST changes: +ALDA25TA2 PO; +AMLO5TAB6 PO; -BUPIVACAINE HCL 0.5% 10 ML VIAL As Ordered ONE; +CARV25TA PO; +FLEC25TA PO; +HEPARIN 1,000 UNITS/ML 10ML VIAL (FOR RADIOLOGY& DIALYSIS ONLY) As Ordered ONE; -HEPARIN SOD (PORCINE) 5000 UNITS/ML VIAL As Ordered ONE; +ISOVUE-300 61% 50ML VIAL (Q9967) As Ordered ONE; +LIDOCAINE 1% MDV 20ML VIAL As Ordered ONE; -LIDOCAINE 2% INJ 100 MG/5 ML SDV (FOR ANES.) As Ordered ONE; -LIDOCAINE 2% MDV 20 ML VIAL As Ordered ONE; -LR 1,000 ML IV ONE; -ONDANSETRON 4MG/2ML VIAL (J2405) As Ordered ONE; -PROPOFOL 200 MG/20 ML VIAL As Ordered ONE; -ROCURONIUM BROMIDE 50 MG/5 ML VIAL As Ordered ONE; +VELP5CHW PO; -dexameTHASONE 4 MG/ML 1ML VIAL (J1100) As Ordered ONE; +diphenhydrAMINE INJ 50MG/ML VIAL (J1200) As Ordered ONE; +hydrALAZINE INJ 20 MG/ML VIAL As Ordered ONE
--- NOTE | 2019-08-24 18:34 | REP ---
IR left-sided Permcath placement. IR venogram. IR ultrasound of the left neck. IR left-sided Permcath insertion under fluoroscopy and ultrasound guidance. IR moderate sedation. IR right sided PermCath removal. Clinical information: Renal failure. Right sided PermCath not working. Physician: Dr. Nieves. Procedure: The patient was advised of the benefits, risks and alternatives of the procedure and informed consent was obtained. The time-out was performed with verification of the patient's name, MRN, site of procedure and type of procedure to be performed. The patient was positioned in the supine position on the angiographic table. The site was prepped and draped in the usual sterile fashion. Moderate sedation was performed by the physician including the presence of an independent trained observer that assisted in monitoring the patient's level of consciousness and physiologic status. Following the administration of fentanyl and Versed , the physician spent 60 minutes of continuous face to face time with the patient. A college scouting coordinator radiograph shows a right sided PermCath which is short of the atrium. A venogram was performed through the existing right sided PermCath which demonstrates no significant fibrin sheath. Ultrasound of the left neck reveals a patent and compressible left internal jugular vein. The neck and anterior chest wall were anesthetized with lidocaine. The left internal jugular vein was accessed using a micro introduce needle via a lateral approach. An 018 cope wire was advanced into the inferior vena cava. Incision at the internal jugular access site and anterior chest wall were made using a scalpel. The needle was removed and the tract was serially dilated under fluoroscopy guidance. A peel away sheath was advanced over the wire under fluoroscopy guidance into the Superior vena cava. The catheter was inserted through the subcutaneous tissues of the chest wall with a tunneling device. The catheter was then advanced through the peel-away sheath under fluoroscopy guidance to the right atrium. The peel-away sheath was removed. The catheter was positioned with the tip in the right atrium. The puncture site was closed. The catheter was secured in place using 2-0 Prolene. Both sites were cleansed and sterile dressings applied. At the conclusion of the procedure, the ports of the catheter aspirate and flush freely. The catheter was locked with high-dose heparin. The right IJ PermCath was removed in its entirety. The patient tolerated the procedure well and was returned to the PRU in stable condition. EBL: < 5 ml. Complications: None. Conclusion: 1. Successful placement of left-sided Permcath for dialysis. The catheter is ready for immediate use. 2. Successful removal of short right PermCath. Thank you this referral. Electronically Signed by Priscila Nieves MD 08/24/2019 06:33 P
[2019-08-24 18:59] VITALS: BP 120/54
== END ==
LOC: M IRPRO 14:46
PROVIDERS: ATTEND Radiology Diagnostic Radiology
DX: T82.598A Other mechanical complication of other cardiac and vascular devices and implants, initial encounter (principal); N18.6 End stage renal disease
CPT/HCPCS: 36558; 36589; 75827; 99152; 99153; C1750; C1769; C1894; J1200; J2250; J3010; Q9967

== ENCOUNTER → 2019-09-02 | Outpatient (CLI) | payer MEDICARE, MEDICAID ==
[~2019-09-02] MED LIST changes: +**hydrALAZINE HCL** 25 MG TAB PO ONE; -ALDA25TA2 PO; +ALTEPLASE 2 MG/2 ML VIAL (J2997 PER 1MG) As Ordered ONE; -AMLO5TAB6 PO; -CARV25TA PO; -FLEC25TA PO; -VELP5CHW PO; -hydrALAZINE INJ 20 MG/ML VIAL As Ordered ONE
[2019-09-02 14:45] VITALS: BP 190/90
--- NOTE | 2019-09-03 11:53 | REP ---
IR PermCath check. IR venogram. IR TPA thrombolysis of dialysis catheter. Clinical information: Left sided PermCath placed recently. Problems with last dialysis session, clogged, won't work. Procedure: The patient was advised of the benefits, risks and alternatives of the procedure and informed consent was obtained. The time-out was performed with verification of the patient's name, MRN, site of procedure and type of procedure to be performed. The patient was positioned in the supine position on the angiographic table. The site was prepped and draped in the usual sterile fashion. Moderate sedation was not required. The physician spent 30 minutes of continuous face to face time with the patient. A stock checker radiograph reveals a left sided PermCath in expected location; the tip in the right atrium. One of the 2 ports of the PermCath aspirates well, the other does not. Aggressive aspiration was performed removing clot followed by aspiration of free blood. The catheter was then flushed. A venogram was performed through the existing left sided PermCath which demonstrates no fibrin sheath and good forward flow. 2 ml TPA was instilled into each of the two ports and left to dwell for 10 minutes. The TPA was then removed. The catheter was again flushed and demonstrates good aspiration and good forward flow. The catheter was lined with high-dose heparin. The patient tolerated the procedure well and was returned to PRU in stable condition. Complications: None. EBL: Less than 5 ml. Impression: 1. 1 of 2 ports of the PermCath was clogged. 2. Successful unclogging and thrombolysis of left sided PermCath with good forward flow and no fibrin sheath. The catheter is ready for immediate use. Thank you this referral. Electronically Signed by Priscila Nieves MD 09/02/2019 02:13 P
== END ==
LOC: M IRPRO 12:04
PROVIDERS: ATTEND Internal Medicine Nephrology
DX: T82.868A Thrombosis due to vascular prosthetic devices, implants and grafts, initial encounter (principal); X58.XXXA Exposure to other specified factors, initial encounter; Y93.9 Activity, unspecified; Y92.9 Unspecified place or not applicable; Y99.9 Unspecified external cause status
CPT/HCPCS: 36593; 75827; J2997; Q9967

== ENCOUNTER → 2019-09-09 | Outpatient (CLI) | payer MEDICAID, MEDICARE ==
[~2019-09-09] MED LIST changes: -**hydrALAZINE HCL** 25 MG TAB PO ONE; +ALDA25TA2 PO; -ALTEPLASE 2 MG/2 ML VIAL (J2997 PER 1MG) As Ordered ONE; +AMLO5TAB6 PO; +CARV25TA PO; +FLEC25TA PO; -HEPARIN 1,000 UNITS/ML 10ML VIAL (FOR RADIOLOGY& DIALYSIS ONLY) As Ordered ONE; -ISOVUE-300 61% 50ML VIAL (Q9967) As Ordered ONE; -LIDOCAINE 1% MDV 20ML VIAL As Ordered ONE; -MIDAZOLAM INJ 2 MG/2 ML VIAL (J2250) As Ordered ONE; +VELP5CHW PO; -diphenhydrAMINE INJ 50MG/ML VIAL (J1200) As Ordered ONE; -fentaNYL 100 MCG/2 ML INJECTION (J3010) As Ordered ONE
--- NOTE | 2019-09-09 14:25 | REP ---
REASON: History of chronic ulcers and peripheral vascular disease. Due to the patient's bilateral lower extremity wounds, the ankle brachial index could not be calculated on either the right or the left side. RIGHT: Peak systolic velocities. MAPPER 157.8 Triphasic. Profunda 215.5 Triphasic SFA proximal 177.4 Monophasic SFA mid portion 135.9 Monophasic SFA distal 178.5 Monophasic Popliteal artery 79.5 Monophasic Anterior tibial artery proximally 70.5 Monophasic Tibioperoneal trunk 89.9 Monophasic Posterior tibial artery proximal 105.8 Monophasic Posterior tibial artery distally 88.5 Monophasic Anterior tibial artery distally 76.2 Monophasic. LEFT: MAPPER 100.9 Triphasic. Profunda 111.8 Triphasic SFA proximal 162/431/111 Triphasic SFA mid portion 210.7 Monophasic SFA distal 101.8 Monophasic Popliteal artery 82.6 Monophasic Anterior tibial artery proximally 100.8 Monophasic Tibioperoneal trunk 71.2 Monophasic Posterior tibial artery proximal 67.0 Monophasic Posterior tibial artery distally 76.4 Monophasic Anterior tibial artery distally 81.3 Monophasic. There is evidence of severe peripheral vascular disease bilaterally with some collateral formation seen in the region of the superficial femoral artery proximately on the right. Electronically Signed by Darrion Yadav DO 09/09/2019 02:35 P
== END ==
LOC: M RAD 10:43
PROVIDERS: ATTEND Physician Assistant
DX: L97.919 Non-pressure chronic ulcer of unspecified part of right lower leg with unspecified severity (principal); L97.929 Non-pressure chronic ulcer of unspecified part of left lower leg with unspecified severity; L97.519 Non-pressure chronic ulcer of other part of right foot with unspecified severity; L97.529 Non-pressure chronic ulcer of other part of left foot with unspecified severity; S71.101D Unspecified open wound, right thigh, subsequent encounter

== ENCOUNTER 2019-09-15 17:42 | Inpatient (IN) | payer MEDICARE, MEDICAID ==
[~2019-09-15] VITALS: Ht 188 cm; Wt 125.4 kg
[~2019-09-15 17:42] MED LIST changes: -ALDA25TA2 PO; -AMLO5TAB6 PO; -CARV25TA PO; -FLEC25TA PO; -VELP5CHW PO
[2019-09-15 19:29] LABS: BASO % 0.4 % (0.0-1.0); EOS # 0.2 10^3/uL (0.0-0.5); EOS % 1.9 % (0.0-3.0); HEMATOCRIT 30.9 % (42.0-52.0); LYMPH % 23.8 % (24.0-44.0); MEAN CORPUSCULAR HEMOGLOBIN 27.9 pg (27.0-33.0); MEAN CORPUSCULAR HGB CONC 32.4 g/dl (32.0-36.5); MEAN CORPUSCULAR VOLUME 86.3 fl (80.0-96.0); MONO # 0.6 10^3/uL (0.0-0.8); MONO % 6.5 % (0.0-5.0); NEUTROPHILS # 5.6 10^3/uL (1.5-8.5); NEUTROPHILS % 66.5 % (36.0-66.0); PLATELET COUNT, AUTOMATED 264 10^3/uL (150-450); RED BLOOD COUNT 3.58 10^6/uL (4.30-6.10); WHITE BLOOD COUNT 8.5 10^3/uL (4.0-10.0)
[2019-09-15 19:54] LABS: CK-MB VALUE MASS 2.7 NG/ML (<3.6); CREATININE FOR GFR 4.11 MG/DL (0.70-1.30); FREE T4 1.1 NG/DL (0.76-1.46); GLOMERULAR FILTRATION RATE 16.3 (>56); MAGNESIUM LEVEL 1.9 MG/DL (1.8-2.4); MB/CK RELATIVE INDEX 4.82 (< OR =4); POTASSIUM SERUM 3.7 MEQ/L (3.5-5.1); THYROID STIMULATING HORMONE 3.12 uIU/ML (0.358-3.740); TROPONIN I 0.04 NG/ML (< 0.10)
[2019-09-15] MEDS: METOPROLOL 5 MG/5 ML VIAL IV SCH ×3 (20:12→20:57)
[2019-09-15] MEDS ORDERED: METOPROLOL TART 50 MG TAB PO ONE (20:30)
--- NOTE | 2019-09-15 20:57 | REP ---
HISTORY: Chest pain. COMPARISON: 03/27/2019 The technique utilized in obtaining the radiograph has magnified the cardiac silhouette and accentuated the interstitial markings. Since the last examination a double lumen central venous catheter has been placed. The tip is in the superior vena cava. The heart is enlarged magnified by technique. The lung talavera are clear and essentially unchanged. IMPRESSION: No acute cardiopulmonary disease. Central venous catheter and cardiomegaly. Electronically Signed by Darrion Yadav DO 09/16/2019 11:57 A
[2019-09-15] MEDS ORDERED: VELP5CHW PO (21:00)
[2019-09-15] MEDS ORDERED: TORS20TA2 PO (21:00)
[2019-09-15] MEDS ORDERED: CARV6.25 PO (21:00)
[2019-09-15] MEDS ORDERED: GLUCAGON FOR INJ 1 MG VIAL (J1610) SC PRN (21:45)
[2019-09-15] MEDS ORDERED: DEXTROSE 50% 50 ML SYRINGE IV PRN (21:45)
[2019-09-15] MEDS ORDERED: GLUCOSE 4 GM CHEW TABLET PO PRN (21:45)
[2019-09-15] MEDS ORDERED: ACETAMINOPHEN TAB 650MG DOSE (2X325MG) PO PRN (21:45)
--- NOTE | 2019-09-15 21:45 | HPEPDOC ---
[facility] Medical History & Physical Date of Admission Sep 15, 2019 Date of Service: Sep 15, 2019 Primary Care Physician: A Other Provider PCP Prosper Villa MD Attending Physician: FRENCH GUNN MD History and Physical TIME OF SERVICE: 9:15 PM CHIEF COMPLAINT: Sent from dialysis clinic HISTORY OF PRESENT ILLNESS: This is a 54-year-old male who presents to the hospital after being sent from his dialysis clinic because he was tachycardic. He started dialysis in June of this year and initially had dizziness and weakness after sessions, which has since improved. Today he denies having chest pain, denies having shortness of breath, denies feeling dizzy, denies having a headache, denies having nausea, denies having vomiting, denies having diarrhea, and denies having fevers or chills. He has chronic shortness of breath with walking which has not changed recently. Per discussion with the ED provider his EKG showed A.flutter. He received metoprolol 5 mg IV, and metoprolol tartrate 50 mg once. REVIEW OF SYSTEMS: 12 point review of systems negative except as listed in HPI PAST MEDICAL/ SURGICAL HISTORY: ESRD status post left AV fistula which didn't mature, s/p right peritoneal dialysis catheter and now has left-sided peritoneal dialysis catheter Insulin-dependent diabetes mellitus. Chronic Asthma Chronic Hypertension. Peripheral vascular disease status post stent placement in femoral artery History of non healing lower extremity wounds, lower extremity osteomyelitis / Status post left lower extremity wound VAC Chronic CAD / History of NSTEMI Status post left knee knee surgery. Status post cholecystectomy Status post tonsillectomy History of non-compliance with medical care SOCIAL HISTORY: Nonsmoker Does not use alcohol. Denies are crucial drug use. Lives with his son who helps care for him FAMILY HISTORY: Diabetes Hypertension Cancer ALLERGIES: Please see below. HOME MEDICATIONS: Please see below. PHYSICAL EXAMINATION: VITAL SIGNS: Please see below. GENERAL APPEARANCE: Well-nourished, well-developed, not in apparent distress HEENT: Normocephalic, atraumatic, mucous membranes moist and pink CARDIOVASCULAR: Heart rate is irregularly irregular and ranges from 111-119, there is a peritoneal dialysis catheter at the left upper chest LUNGS: There is equal air entry bilaterally, the lungs are clear to auscultation ABDOMEN: Abdomen is soft and nontender on palpation MUSCULOSKELETAL: The extremities are warm and well-perfused. Range of motion is intact in all 4 extremities INTEGUMENT: He has generalized pallor NEUROLOGICAL: Cranial 2-12 are grossly intact. Speech is not dysarthric PSYCHIATRIC: Patient is alert and oriented to person, place and time, is able to understand and follow commands. He has a sense of humor and is making jokes during the exam LABORATORY DATA: See below. IMAGING: Chest x-ray " IMPRESSION: No acute cardiopulmonary disease. Central venous catheter and cardiomegaly." MICROBIOLOGY: Please see below. ASSESSMENT: Mr. Parrish is a 54-year-old male with a past medical history of ESRD, chronic asthma, chronic hypertension, history of NSTEMI, peripheral vascular disease, and insulin-dependent diabetes mellitus who will be admitted for management of new onset atrial flutter. PLAN: 1. Atrial flutter Cause to be determined; differential includes mitral valvulopathy, HTN, cardiomyopathy or pericarditis EKG was reviewed and showed a heart rate of 133 His Trop, TSH, K & Ca are wnl [id number] Score to determine risk of stroke = 3 Plan: Admit to PCU/ telemetry /continue with metoprolol tartrate 50mg BID / anticoagulation with heparin bc he has ESRD /follow-up serial troponins, magnesium & 2D Echo / will not order D-dimer to screen for PE because it will likely be falsely elevated in the setting of ESRD and he doesn't have other signs of symtoms c/w PE / Cardio consult / this patient should also have an out pt sleep study 2. Uncontrolled IDDM His last A1c was 10.1 in June Plan: carbohydrate consistent diet / f/u accuchecks / hypoglycemia protocol / sliding scale insulin / continue detemir 55 units BID 3. ESRD via peritoneal dialysis catheter Plan: Renal diet/nephrology consult,/continue with torsemide, calcium acetate & velphro 4. Normocytic Normochromic Anemia Likely due to ESRD/chronic medical disease Iron panel done in June was consistent with iron deficiency. Today's hemoglobin is 10% Plan: Follow-up CBC / monitor for bleeding because he is on anticoagulation for atrial flutter 5. Chronic Asthma Plan: Continue home meds 6. Chronic Hypertension Plan: switch from Coreg to Metoprolol Tartrate 7. Peripheral vascular disease He has a hx of stent placement in femoral artery He is not on dual antiplatelet therapy 8. Chronic CAD / Hx of NSTEMI Plan: switch from Coreg to Metoprolol Tartrate 9. 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 / recommend cardiovascular exercise for 40 min 4-5 days a week DVT prophylaxis not necessary has been his is on heparin drip for anticoagulant for atrial flutter Disposition pending clinical course Vital Signs Vital Signs Date Time Temp Pulse Resp B/P (MAP) Pulse Ox O2 Delivery O2 Flow Rate FiO2 09/15/19 20:57 118 123/79 09/15/19 20:45 96 09/15/19 18:13 98.3 09/15/19 18:00 30 Laboratory Data Labs 24H Laboratory Tests 2 09/15/19 19:12: Immature Granulocyte % (Auto) 0.9, Neutrophils (%) (Auto) 66.5H, Lymphocytes (%) (Auto) 23.8L, Monocytes (%) (Auto) 6.5H, Eosinophils (%) (Auto) 1.9, Basophils (%) (Auto) 0.4, Neutrophils # (Auto) 5.6, Lymphocytes # (Auto) 2.0, Monocytes # (Auto) 0.6, Eosinophils # (Auto) 0.2, Basophils # (Auto) 0.0, Nucleated Red Blood Cells % (auto) 0.0, Anion Gap 9, Glomerular Filtration Rate 16.3L, Calcium Level 9.0, Magnesium Level 1.9, Total Creatine Kinase 56, Creatine Kinase MB 2.7, Creatine Kinase MB Relative Index 4.82H, Troponin I 0.04, Thyroid Stimulating Hormone (TSH) 3.120, Free Thyroxine 1.10 CBC/BMP Laboratory Tests 09/15/19 19:12 Home Medications Scheduled Calcium Acetate (Calcium Acetate) 667 Mg Tablet, 667 MG PO WM Carvedilol (Carvedilol) 6.25 Mg Tablet, 6.25 MG PO BID Fluticasone Propion/Salmeterol (Advair Hfa 230-21 Mcg Inhaler) 12 Gm Hfa.aer.ad, 2 PUFF INH BID Insulin Aspart (Novolog Flexpen) 100 Unit/Ml Inj, 1 DOSE SC ACHS PER SLIDING SCALE Insulin Detemir (Levemir Flextouch) 100 Unit/1 Ml Insuln.pen, 55 UNIT SC BID Sucroferric Oxyhydroxide (Velphoro) 500 Mg Tab.chew, 500 MG PO AC Torsemide (Torsemide) 20 Mg Tablet, 40 MG PO DAILY Scheduled PRN Albuterol Sulfate (Ventolin Hfa) 108 Mcg/Act Aer, 2 PUFF INH Q4H PRN for SHORTNESS OF BREATH Allergies Coded Allergies: aspirin (Verified Allergy, Unknown, 08/20/19) garlic (Verified Adverse Reaction, Intermediate, syncope, 08/20/19) silver (Verified Adverse Reaction, Intermediate, angulo, 08/20/19) A-FIB/CHADSVASC A-FIB History Current/History of A-Fib/PAF?: Yes Current PO Anticoag Therapy: No Age/Risk Factor Scoring CHADSVASC: CHADSVASC Response (Comments) Value Age Risk Factor Age < 65 years old 0 Gender Risk Factor Male 0 Hx of CHF No 0 Hx of HTN Yes 1 Hx of Stroke/TIA/or VTE No 0 Hx of Diabetes Yes 1 Hx of Vascular Disease Yes 1 Total 3 Treatment Treatment ordered: Heparin IV bridge Therapy FRENCH GUNN MD Sep 15, 2019 21:45
[2019-09-15] MEDS: HumaLOG INSULIN (NovoLOG) PER UNIT SC SCH (22:30)
--- NOTE | 2019-09-16 00:57 | ECGEPIP ---
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
[2019-09-16] MEDS ORDERED: LEVEMIR (INSULIN DETEMIR) 1 UNITS/0.01ML SC ONE (01:15)
[2019-09-16] MEDS ORDERED: ALBUTEROL 90 MCG/ACT 8GM HFA INHALER INH PRN (01:15)
[2019-09-16] MEDS ORDERED: HEPARIN SOD (PORCINE) 5000 UNITS/ML VIAL IV PRN (01:15)
[2019-09-16 02:32] LABS: HEMATOCRIT 27.8 % (42.0-52.0); HEMOGLOBIN 9.2 g/dl (13.5-17.5); MEAN CORPUSCULAR HEMOGLOBIN 29.2 pg (27.0-33.0); MEAN CORPUSCULAR HGB CONC 33.1 g/dl (32.0-36.5); MEAN CORPUSCULAR VOLUME 88.3 fl (80.0-96.0); PLATELET COUNT, AUTOMATED 223 10^3/uL (150-450); RED BLOOD COUNT 3.15 10^6/uL (4.30-6.10); WHITE BLOOD COUNT 8.6 10^3/uL (4.0-10.0)
[2019-09-16 03:17] LABS: MAGNESIUM LEVEL 1.9 MG/DL (1.8-2.4); TROPONIN I 0.04 NG/ML (< 0.10)
[2019-09-16 07:44] LABS: HEMATOCRIT 27.5 % (42.0-52.0); MEAN CORPUSCULAR HEMOGLOBIN 28.8 pg (27.0-33.0); MEAN CORPUSCULAR HGB CONC 32.7 g/dl (32.0-36.5); MEAN CORPUSCULAR VOLUME 88.1 fl (80.0-96.0); PLATELET COUNT, AUTOMATED 229 10^3/uL (150-450); RED BLOOD COUNT 3.12 10^6/uL (4.30-6.10); WHITE BLOOD COUNT 8.4 10^3/uL (4.0-10.0)
[2019-09-16] MEDS: ADVAIR HFA 230/21MCG INHALER INH SCH ×2 (07:48→20:27)
[2019-09-16 07:56] LABS: INR 1.13; PARTIAL THROMBOPLASTIN TIME 33.9 SECONDS (25.0-38.4); PROTHROMBIN TIME 14.2 SECONDS (11.8-14.0)
[2019-09-16] MEDS: SUCROFERRIC OXYHYDROXIDE 500MG CHEW TAB (VELPHORO) PO SCH ×3 (08:11→18:18)
[2019-09-16] MEDS: CALCIUM ACETATE 667 MG GELCAP PO SCH ×3 (08:11→18:18)
[2019-09-16] MEDS: HumaLOG INSULIN (NovoLOG) PER UNIT SC SCH ×4 (08:12→20:41)
[2019-09-16] MEDS: TORSEMIDE 20 MG TAB PO SCH (08:12)
[2019-09-16 08:13] LABS: CALCIUM LEVEL 8.9 MG/DL (8.5-10.1); CREATININE FOR GFR 4.72 MG/DL (0.70-1.30); GLOMERULAR FILTRATION RATE 13.9 (>56); POTASSIUM SERUM 3.2 MEQ/L (3.5-5.1); TROPONIN I 0.04 NG/ML (< 0.10)
[2019-09-16 08:26] VITALS: BP 178/92
[2019-09-16] MEDS ORDERED: LEVEMIR (INSULIN DETEMIR) 1 UNITS/0.01ML SC SCH ×2 (09:00→21:00)
[2019-09-16] MEDS ORDERED: METOPROLOL TART 50 MG TAB PO SCH (09:00)
[2019-09-16] MEDS ORDERED: POTASSIUM CHLORIDE 10% LIQ 20 MEQ/15 ML UDC PO ONE (10:15)
--- NOTE | 2019-09-16 10:39 | ECGEPIP ---
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 Has converted from atrial flutter documented . Electronically Signed on 09-16-2019 10:38:57 EDT by Rancho Webster
[2019-09-16 12:05] VITALS: BP 169/79
--- NOTE | 2019-09-16 12:37 | ECHO ---
DATE OF PROCEDURE: 09/16/2019 DATE OF : 1965 AGE: 54 GENDER: Male HEIGHT: 75 inches WEIGHT: 260 pounds BODY SURFACE AREA: 2.46 m2 INPATIENT: Currently in the emergency room (ER). REFERRING PHYSICIAN: Dr. Natalya Steele INDICATION: Paroxysmal atrial flutter. Abnormal EKG. MEASUREMENTS: 2-D Measurements: RV: 4.2 cm LV: 5.4 cm Septum: 1.3 cm Posterior wall: 1.3 cm Aortic root: 3.6 cm LA: 4.3 cm LVEF: 65% Doppler Measurements: AV: 1.54 m/s LVOT: 0.97 m/s LVOT diameter: 2.2 cm MV: E 102, A 90, EA ratio 1.1 Early mitral deceleration time: 211 ms E prime: 6.4, A prime: 7.9, E/E prime ratio: 15.9 PCWP: 18.3 mmHg PV: 0.8 m/s Pulmonary artery acceleration time: 116 ms PASP: 30 mmHg IVC: 2.2 cm COMMENT: Normal sinus rhythm without intraventricular conduction disturbance. Technically challenging study in light of the patient's body habitus but diagnostically useful information was still obtained. M-mode and two-dimensional echocardiography was performed with pulsed, continuous wave, color flow and tissue Doppler studies. Mild concentric left ventricular hypertrophy with normal wall motion. Mildly dilated left atrium with grade 2 left ventricular diastolic dysfunction and at least mildly elevated mean left atrial pressure. Right heart chamber sizes were upper limits of normal to slightly dilated with normal wall motion and Doppler evidence of borderline pulmonary hypertension. IVC size upper limits of normal to slightly dilated with adequate respiratory collapse against an elevated central venous pressure at this time. Normal appearing and functioning aortic valve. Normal aortic dimensions. Normal appearing and functioning mitral valve. Normal appearing and functioning tricuspid valve. Minuscule likely physiologic posterior pericardial fluid. No apparent intracardiac mass.
--- NOTE | 2019-09-16 12:46 | IPNPDOC ---
Date Seen The patient was seen on 09/16/19. Progress Note SUBJECTIVE: Patient is a 54-year-old male with a history of end-stage renal disease on dialysis, poorly controlled insulin-dependent diabetes mellitus, and chronic hypertension who presented to the emergency room with new onset atrial flutter. Patient states he is feeling well. He denies any complaints. He states he did not have any symptoms on the onset of his atrial fibrillation and continues to feel that his normal state of health. He states he is compliant with his medications at home. He denies any fevers, chills, headache, dizziness, nausea, vomiting, diarrhea, chest pain, palpitations, or shortness of breath. OBJECTIVE PHYSICAL EXAMINATION: VITAL SIGNS: Please see below. GENERAL: Well-nourished, well-developed, not in apparent distress, laying comfortably in bed HEENT: Normocephalic, atraumatic, PERRLA, EOMI, mucous membranes moist and pink CARDIOVASCULAR: Regular rate and rhythm, normal S1 and S2, no murmurs, rubs or gallops LUNGS: Clear to auscultation bilaterally with equal air entry bilaterally ABDOMEN: Soft, nontender, nondistended, bowel sounds present MUSCULOSKELETAL: Range of motion is intact in all 4 extremities SKIN: Overall warm, pink, dry. EXTREMITIES: Patient's legs are tightly wrapped and he states he does have wounds underneath these wraps and with dressings. NEUROLOGICAL: Alert and oriented 3 to person, place and time. Cranial nerves 212 grossly intact. No focal deficits appreciated. PSYCHIATRIC: Mood and affect appropriate LABORATORY DATA, IMAGING STUDIES, MICROBIOLOGY: Please see below. ASSESSMENT AND PLAN: Patient is a 54-year-old male with a history of end-stage renal disease on dialysis, poorly controlled insulin-dependent diabetes mellitus, and chronic hypertension who presented to the emergency room with new onset atrial flutter. PROBLEMS: 1. s/p Atrial flutter Patient was found to be tachycardic during his dialysis on 09/15 and was taken to the emergency room for further evaluation and found to be in atrial flutter. Patient has since converted to sinus rhythm and will continue on metoprolol tartrate 50 mg twice a day Anticoagulation was started with heparin since he has end-stage renal disease. Echocardiogram reviewed without any valvular disease -Heparin drip was discontinued as per Cardiology Cardiology consult, appreciate their input and recommendations. 2. Uncontrolled IDDM His last A1c was 10.1 in June. Consistent carbohydrate diet. Continue home insulin regimen and sliding scale insulin. Continue to assess his insulin requirements daily and may change his home regimen if indicated 3. ESRD Continue with home medications. Renal diet. Nephrology consult for continued dialysis 4. Normocytic Normochromic Anemia Likely due to ESRD/chronic medical disease Iron panel done in June was consistent with iron deficiency. 5. Chronic Asthma Continue home medications 6. Chronic Hypertension Patient on Coreg at home, which has been discontinued at this time. Patient currently on metoprolol tartrate for rate control, will continue to assess his need for additional antihypertensives as this is titrated 7. Peripheral vascular disease hx of stent placement in femoral artery. not on dual antiplatelet therapy 8. Chronic CAD / Hx of NSTEMI Patient previously on Coreg at home. This has been discontinued as he is now on metoprolol tartrate. 9. Obesity BMI 33.4 Complicates care We will suggest stopping scoring and outpatient sleep study to assess for ADWOA in discharge summary DVT prophylaxis: On heparin for anticoagulation for atrial flutter DISPOSITION: Possible discharge home tomorrow VS, I&O, 24H, [facility] Vital Signs/I&O Vital Signs Date Time Temp Pulse Resp B/P (MAP) Pulse Ox O2 Delivery O2 Flow Rate FiO2 09/16/19 12:05 97.4 78 17 169/79 (109) 96 Room Air Laboratory Data 24H LABS Laboratory Tests 2 09/15/19 19:12: Immature Granulocyte % (Auto) 0.9, Neutrophils (%) (Auto) 66.5H, Lymphocytes (%) (Auto) 23.8L, Monocytes (%) (Auto) 6.5H, Eosinophils (%) (Auto) 1.9, Basophils (%) (Auto) 0.4, Neutrophils # (Auto) 5.6, Lymphocytes # (Auto) 2.0, Monocytes # (Auto) 0.6, Eosinophils # (Auto) 0.2, Basophils # (Auto) 0.0, Nucleated Red Blood Cells % (auto) 0.0, Anion Gap 9, Glomerular Filtration Rate 16.3L, Calcium Level 9.0, Magnesium Level 1.9, Total Creatine Kinase 56, Creatine Kinase MB 2.7, Creatine Kinase MB Relative Index 4.82H, Troponin I 0.04, Thyroid Stimulating Hormone (TSH) 3.120, Free Thyroxine 1.10 09/15/19 22:10: Bedside Glucose (Misc Panel) 352H 09/16/19 00:09: Bedside Glucose (Misc Panel) 372H 09/16/19 02:25: Nucleated Red Blood Cells % (auto) 0.0, Magnesium Level 1.9, Troponin I 0.04, Activated Partial Thromboplast Time 32.9 09/16/19 06:16: Bedside Glucose (Misc Panel) 195H 09/16/19 07:31: Nucleated Red Blood Cells % (auto) 0.0, Prothrombin Time 14.2H, Prothromb Time International Ratio 1.13, Activated Partial Thromboplast Time 33.9, Anion Gap 9, Glomerular Filtration Rate 13.9L, Calcium Level 8.9, Troponin I 0.04 09/16/19 11:22: Bedside Glucose (Misc Panel) 296H CBC/BMP Laboratory Tests 09/15/19 19:12 09/16/19 02:25 09/16/19 07:31 GME ATTESTATION GME ATTESTATION My faculty preceptor for this patient encounter was physically present during the encounter and was fully available. All aspects of the patient interview, examination, medical decision making process, and medical care plan development were reviewed and approved by the faculty preceptor. The faculty preceptor is aware and concurs with the plan as stated in the body of this note and will attest to such by his/her cosignature. ATTENDING NOTE I, Christian Jackman, have independently examined this patient and performed my own physical exam, as well as reviewed the documentation and edited where necessary. I have discussed in detail with the resident / student the findings and plan of treatment as documented by the resident / student and edited their note. I agree with their findings and treatment plan and have edited their documentation. I will continue to follow the patient during this hospital stay. MARILY MANRIQUEZ PGY-1 Sep 16, 2019 12:46 CHRISTIAN JACKMAN MD Sep 16, 2019 14:39
[2019-09-16 13:05] LABS: CHOLESTEROL RISK RATIO 6.095 (<5)
--- NOTE | 2019-09-16 13:20 | ER ---
DATE OF CONSULTATION: 09/16/2019 REQUESTING PHYSICIAN: Anna Marie Toth MD REASON FOR CONSULTATION: Management of end-stage renal disease, on hemodialysis. HISTORY OF PRESENT ILLNESS: Jarocho Parrish is known to me. He is a 54-year-old male with a past medical history of end-stage renal disease, on hemodialysis since summer on a Saturday, , Saturday maintenance schedule via [facility]. History of hypertension, peripheral vascular disease, lower extremity wounds, noncompliant, asthma, insulin-dependent diabetes mellitus, anemia of chronic kidney disease, secondary hyperparathyroidism of renal origin, diastolic congestive heart failure, and other comorbid conditions mentioned below. The patient was sent to the emergency room from the hemodialysis unit yesterday after his heart rate during his treatment stayed in the 120s-130s. He received about 2 hours of his treatment with a little over 1 liter of fluid removed, and his treatment was subsequently cut short, and the patient was sent to the emergency room. He was asymptomatic with the tachycardia in the emergency room. Electrocardiogram (EKG) showed atrial flutter, and the patient received intravenous (IV) Lopressor and was started on anticoagulation. The patient is seen and examined this morning in the emergency room. Denies any overnight events or complaints. Denies any chest pain or palpitations. He does report chronic dyspnea on exertion, which has not changed/ Vital signs: Temperature 97.6, pulse 74, respiratory rate 17, blood pressure ranging from systolic 102 to systolic 170s over diastolic 60s to 90s, saturating 96% on room air. General: The patient is seen lying in the stretcher in the emergency room. A middle-aged male, well-developed, in no acute respiratory distress. Extraocular muscles are intact. The tongue is moist. The neck is supple. Jugular veins are mildly elevated. Heart sounds are irregularly irregular. There is a tunneled hemodialysis catheter present in the left chest wall. Lungs show clear air entry bilaterally without crackle or rales. Abdomen is obese, soft, and nontender with bowel sounds. The lower extremities show 1+ edema at least bilaterally. His foot wounds are not examined. Neurologic: He is oriented times three without focal deficit. He is interactive and conversational and cooperative with physical examination. PAST MEDICAL HISTORY: End-stage renal disease on hemodialysis three times a week, insulin dependent diabetes mellitus, asthma, hypertension, diastolic congestive heart failure, peripheral vascular disease, lower extremity wounds, history of osteomyelitis, coronary artery disease, history of noncompliance with medical care, anemia of chronic kidney disease, and secondary hyperparathyroidism of renal origin. PAST SURGICAL HISTORY: Failed arteriovenous fistula, tunneled hemodialysis catheter in the right chest wall, tunneled hemodialysis catheter in the left chest wall, vascular stents, coronary stents, left knee surgery, status post cholecystectomy, status post tonsillectomy. ALLERGIES: ASPIRIN, GARLIC, SULFUR. PERSONAL AND SOCIAL HISTORY: Long history of noncompliance with medical care. Denies smoking or alcohol use. Denies drug use. FAMILY HISTORY: Negative for end-stage renal disease. HOME MEDICATIONS: Are reviewed and include albuterol, PhosLo, Carvedilol, Advair, insulin, Velphoro, and torsemide. REVIEW OF SYSTEMS: Constitutional: He denies fevers or chills. Eyes: He denies visual changes or tearing. Ears, nose, and throat (ENT): He denies odynophagia or rhinorrhea. Cardiac: He reports history of diastolic congestive heart failure, recent diagnosis of atrial flutter, history of coronary artery disease. Respiratory: He reports dyspnea on exertion and inhaler use and asthma. Gastrointestinal: He denies nausea, vomiting, diarrhea. Genitourinary: He denies dysuria or frequency. Endocrine: He reports history of insulin-dependent diabetes and secondary hyperparathyroidism of renal origin. Musculoskeletal: He reports foot wounds, and he denies any acute new arthralgias or myalgias. Hematologic: He reports anemia of chronic kidney disease. He denies chronic anticoagulation. Neurologic: He denies seizure or syncope. Psychiatric: He denies anxiety or depression. Remainder of review of systems is negative or as per history of present illness (HPI). LABORATORY DATA: White count 8.4, hemoglobin 9, platelet 229. Sodium 139, potassium 3.2, magnesium 1.9. IMAGING STUDIES: Chest x-ray without any acute infiltrates. INPATIENT MEDICATIONS: Tylenol as needed, PhosLo 667 mg by mouth with meals, heparin drip, insulin, metoprolol 50 mg by mouth twice a day, potassium 20 mEq by mouth times one, Advair two puffs inhaled twice daily, Velphoro 500 mg by mouth with meals, torsemide 40 mg by mouth daily. PROBLEMS: 1. End-stage renal disease, on hemodialysis on a Saturday, , Saturday schedule via tunneled left chest wall hemodialysis catheter. The patient received 2 hours of his treatment yesterday. It was terminated short because of heart rate being persistently in the 130s. His next treatment will be on per his regular schedule. 2. New-onset atrial flutter. Etiology to be determined. Echocardiogram is pending. Mild hypokalemia, which has been repleted. Magnesium is normal. Cardiology to see the patient. Presently anticoagulated and rate controlled. 3. Poorly-controlled insulin-dependent diabetes mellitus. Insulin per primary team. Most recent A1c was greater than 10%. 4. Anemia related to chronic kidney disease. Hemoglobin suboptimal at 9.0. Will continue with the usual iron supplementation if necessary, along with erythropoietin-stimulating agent. 5. Hypertension. Blood pressures are mostly 100s-120s systolic, and I am not making any changes to the current regimen. Thank you for involving me in the care of Mr. Parrish. I will be happy to follow him along with you.
[2019-09-16] MEDS ORDERED: SLF 3 ML SYR IV PRN (16:15)
[2019-09-16 16:18] VITALS: BP 192/74
[2019-09-16] MEDS ORDERED: METOPROLOL TART 25 MG TABLET PO ONE (17:15)
--- NOTE | 2019-09-16 17:20 | ECGEPIP ---
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
[2019-09-16] MEDS ORDERED: POTASSIUM CHLORIDE 10 MEQ SR TABLET PO ONE (18:30)
[2019-09-16] MEDS: CARVedilol 12.5 MG TAB PO SCH ×2 (18:48→23:39)
[2019-09-16 20:00] VITALS: BP 110/62
[2019-09-16] MEDS: SPIRONOLACTONE 12.5MG PER 1/2 TABLET PO SCH (20:39)
[2019-09-16] MEDS: ATORVASTATIN 20 MG TAB PO SCH (20:40)
[2019-09-16] MEDS: SLF 3 ML SYR IV SCH (20:42)
--- NOTE | 2019-09-16 21:45 | CR ---
DATE OF CARDIOLOGY CONSULTATION: 09/16/2019 REFERRING PHYSICIAN: Natalya Steele MD INDICATION: New-onset atrial flutter with abnormal EKG. HISTORY OF PRESENT ILLNESS This 54-year-old unwed father of 10 children, disabled resident of [place] has a host of medical problems including longstanding asthmatic bronchitis and insulin dependent diabetes mellitus complicated by prior cellulitis/osteomyelitis and renal insufficiency (currently hemodialysis dependent). Yesterday he was undergoing his dialysis and retirement through while he was sitting in an easy chair watching television the standard vital signs were taken with difficulty finding a palpable pulse or blood pressure. EKG showed atrial tachyarrhythmia and he was transferred by ambulance to [facility] ER. Evaluated by Dr. Ramo Guerra he was given metoprolol IV to slow his ventricular rate and allowing us to define underlying atrial flutter. Given additional IV and by mouth (p.o.) beta-kristen, the patient converted to a sinus mechanism by approximately 11:30 p.m. last evening. He was referred to my cardiology practice. CARDINAL CARDIAC SYMPTOMS: Chest pain - has had a history of intermittent right shoulder discomfort aggravated by movement and only occasional dietary related heartburn but denies any effort related chest discomfort. Apparently had remote stress testing with the [facility] years ago with negative findings. Even with a bout of respiratory failure due to his asthmatic bronchitis, serial Troponin I levels were negative. With his diabetes he does not have any dysphagia or reflux. Denies any history of GI bleeding. Shortness of breath - was exposed to secondhand smoke for at least 18 years growing up, but never smoked himself. Has had asthmatic bronchitis since childhood with previous hospitalizations. Status asthmaticus with acute hypercapnic respiratory failure February 2000. Has been followed by pulmonary medicine (Dr. Glover). On combination bronchodilator therapy has done reasonably well. His effort limiting symptom is related to his problems with his right leg not shortness of breath. Does have occasional dry cough. No history of hemoptysis. Unaware of prior pneumonia. No history of obstructive sleep apnea. Unaware of prior history of rheumatic fever or heart murmur, but treated hypertension since at least the 30s and reports of variable control on his current home medications. Unaware of echocardiographically documented left ventricular hypertrophy dating back to at least 2014. Longstanding weight problem (weighed 140 pounds at age 20, max weight 282 pounds since his 40s, had lost weight but admits to a 20-pound weight gain this past year, currently weighs 282 pounds). Palpitations - has never had any awareness of his heart action and even with his rapid atrial flutter was completely unaware of palpitations, chest tightness or shortness of breath at that time. Unaware of previous documentation of any rhythm disturbance. No family history of premature sudden cardiac or congenital deafness. May drink rare iced tea and non caffeinated soda. Avoids alcohol. No known thyroid dysfunction. Lifelong nonsmoker. Does not use [id number] medications such as decongestants, energizers or dietary aids. Near syncope/syncope - admits to occasional positional lightheadedness, especially following dialysis, but denies prior fall or loss of consciousness. Embolic phenomenon: Denies any lateralizing neurological deficit, flank pain, hematuria or blue toe syndrome. Claudication/peripheral venous disease: Has some bilateral leg weakness since his complicated cellulitis and osteomyelitis with prior right leg debridements, but no typical claudication. Unaware of prior varicose veins or phlebitis. Bilateral lower leg swelling at least the past several years. Recent bilateral lower extremity arterial Doppler study performed because of chronic ulcerations showed evidence of severe peripheral vascular disease bilaterally. History of bilateral leg ulcers with wrapping and compression stockings. Had been followed by Dr. Powers, [facility] and Dr. Dave, vascular surgery and infectious disease for his complicated problem. KNOWN PAST CARDIAC DISEASE/EVENTS//TESTS: -Despite some question of prior "small heart attack", cardiac enzymes dating back to at least 2010 showed negative Troponin I throughout. -First elevated pro BNP level/BNP level was March 2014. Chest x-ray at the time reported normal heart size, but evidence of pulmonary venous congestion. -Problem with recurrent pleural effusion 2014, followed by Dr. Lai Kasper, thoracic surgery. Echocardiogram at that time showing mildly dilated and hypertrophied left ventricle with normal wall motion, moderately dilated left atrium with Doppler evidence of an impairment of LV diastolic function and at least mildly elevated mean left atrial pressure. Right heart chambers were also mildly dilated suggestive of pulmonary hypertension but unfortunately because of his body habitus, further more accurate estimation of his pulmonary artery pressure or right ventricular systolic pressure was not possible. His inferior vena cava could not be visualized. Mitral and aortic valvular structures appeared to be normal, but there was at least mild mitral and moderate tricuspid insufficiency. -Abnormal EKGs in keeping with pulmonary disease and his body habitus dating back to 1999. Last available EKG prior to his hospitalization on this occasion was March 27, 2019 and showed sinus rhythm/sinus arrhythmia with left atrial conduction disturbance, low voltages with slow precordial R-wave progression in keeping with his body habitus and only marginal lateral T-wave flattening. CORONARY RISK FACTORS: Age, male gender, longstanding hypertension and insulin-dependent diabetes mellitus. No history of hypercholesterolemia with intermittent hypertriglyceridemia of a mild degree dating back to 2009. Despite his diabetes mellitus, he has not been on pharmacological therapy. No history of hypertension, carotid vascular disease or family history of premature coronary heart disease. OTHER PAST MEDICAL/PAST SURGICAL HISTORY Longstanding complicated diabetes with nephrosis and renal insufficiency, dialysis dependent since July 14, 2019 (has a Perma-Cath in his left subclavian vein at this time). Lifelong asthmatic bronchitis. History of complicated lower extremity cellulitis and osteomyelitis requiring at least two surgical debridements under general anesthesia and regular [facility]/surgical superficial debridements and IV antibiotic therapy for methicillin-resistant infection. Longstanding obesity, peripheral vascular disease dating back to at least 2013. REVIEW OF SYSTEMS Weight gain as mentioned above. 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 No recent fever, chills. Wears corrective lenses for distance. Multiple missing teeth. Pulmonary: As mentioned above. GI: As mentioned above with occasional abdominal cramps but regular bowel habit with no GI bleeding. Continues to pass urine normally. Bilateral leg weakness, especially the right lower leg but denies arthralgia or myalgia. Other systems review is negative. ALLERGIES: No environmental, but severe asthmatic episode with ASPIRIN in the remote past. Unknown reaction to GARLIC and SILVER. MEDICATIONS: At home these included carvedilol 6.25 mg twice a day, torsemide 40 mg daily, albuterol inhaler 2 puffs every 4 as needed dyspnea, Advair Diskus inhaler 230 - 21 two puffs twice a day, calcium 667 mg by mouth, Levemir insulin 55 units subcu twice a day, NovoLog flex pen subcu with each meal and bedtime according to sliding scale, and Velphoro 500 mg by mouth before food. PHYSICAL EXAMINATION Constitutional: Fairly stocky, obese middle-aged male appearing somewhat scruffy and unshaven. Laying comfortably with the head of bed elevated 30 degrees. No obvious pallor, cyanosis or distress. Vital signs: Heart rate 96 beats per minute and regular with frequent irregularities. Blood pressure 164/68 right arm lying, 156/64 right arm sitting, 172/68 left arm sitting, respiratory rate 16 with O2 saturation 97% on room air. Afebrile. Weight 282 pounds, height 74 inches, BMI 36.3. Eyes: Normal conjunctivae and lids. No xanthelasma. ENT/mouth: Multiple missing teeth. Normal oral moisture. No central cyanosis. Neck: Trachea midline. Thyroid not enlarged. Current neck veins were not elevated. Respiratory: Increased anteroposterior chest diameter with currently normal respiratory effort. Reduced air entry over lower lobes posteriorly with prolonged expiration and expiratory wheeze. Cardiovascular: Apical impulse not palpable. Heart sounds were slightly irregular with his arrhythmia augmented pulmonary component of the second heart sound, S4 but no S3 gallop. Has a systolic ejection murmur grade 2/6 heard maximally at the right base that is transmitted to the carotids bilaterally and less so to the left sternal border. No diastolic murmur or rub. Normal carotid upstrokes with slightly variable volume related to his arrhythmia. Transmitted bruits as mentioned. Abdominal aorta and femoral arteries not palpable because of his obesity. No abdominal bruit. Pedal pulses not palpable because of his edema, has known severe peripheral vascular disease. Both lower extremities are currently wrapped with compression dressings, still has some pitting edema of his distal lower thighs, but not over sacrum. GI: Protuberant, obese, soft, nontender abdomen. Difficult to assess for hepatosplenomegaly. Normal bowel sounds. Rectal examination not indicated. Will request stool for occult blood. Musculoskeletal: No obvious joint deformities. Slow gait walking in his room, some proximal muscle weakness but normal tone. Normal-appearing spine curvature. Neuro/psych: Somewhat simple, but was able to relate some of his history, but very poor for specific dates or duration of maladies. Eye, facial, and extremity movements appear to be symmetrical and normal. No abnormal movements. Affect was normal. Skin: Both lower legs have pressure dressings and were not taken down. No other rashes, ecchymotic lesions, pallor or icterus. INVESTIGATIONS: CXR: Portable study done last evening was reviewed independently. Even allowing for this technique, his heart is enlarged. Thoracic aorta was not dilated or tortuous. Prominent proximal pulmonary vessels that rapidly taper in keeping with pulmonary hypertension. No current pulmonary venous congestion, infiltrate. Obvious double-lumen central venous catheter from the left subclavian region with tip in the superior vena cava. EKGs: Serial studies reviewed independently show - 09/15/2019 at 1834 hours atrial flutter with 2:1 AV response and ventricular rate of 133 bpm. Left axis deviation. Somewhat low voltages with slow precordial R-wave progression and persistent S waves in V5-V6 in keeping with his body habitus and pulmonary disease. Rhythm new from last March. No significant repolarization abnormalities. 09/15/2019 at 2022 hours showed underlying atrial flutter with controlled ventricular response averaging 99 bpm. No other change. 09/16/2019 at 742 hours showed sinus rhythm with frequent PACs versus multifocal atrial rhythm, left atrial conduction disturbance. Borderline first-degree AV block, but no other change from the previous day. BLOOD WORK: Admission hemoglobin 10 with normal red blood cell indices, normal white blood cell count and platelet count. PT 14.2/INR 1.13. Normal PTT. Admission electrolytes were normal. BUN 56, creatinine 4.1. Estimated glomerular filtration rate of 16, random glucose 384. Serum magnesium 1.9. Serum calcium 9.0, serial Troponin I levels have been negative. Lipid profile this morning showed a total cholesterol of 128, HDL of 21 with total/ACL ratio of 6.1, triglycerides elevated at 297. TSH was normal. Last available liver profile July 23, 2019 showed an albumin of 2.5 with other values within normal limits. Serum iron July 24, 2019 was low at 41 with total iron binding capacity low at 215. IMPRESSION AND PLAN: 1. Paroxysmal atrial flutter with rapid ventricular response: We have no idea of whether he has had prior episodes of this arrhythmia as he was completely asymptomatic when this was discovered yesterday. Some report of previous tachycardia on dialysis, but no EKG documentation. Undoubtedly due to his underlying structural heart disease, left ventricle hypertrophy and left atrial enlargement continues to have frequent PACs. In light of his arrhythmia, suboptimal blood pressure control, diabetes and slightly soft serum potassium we have discontinued his metoprolol in favor of carvedilol 25 mg by mouth every 6 hours, hold for heart rate less than 60, systolic blood pressure less than 130, flecainide 50 mg by mouth twice a day and low-dose spironolactone 12.5 mg daily. Daily EKGs have been requested for the next several days and we would appreciate at least continuing quality assurance monitor body for 48 hours following the introduction of this agent. Our tentative plan would be to arrange for a 30-day event monitor as an outpatient and also to define his coronary prognosis if we are going to continue him on flecainide antiarrhythmic therapy. Should we document further episodes of atrial flutter and no atrial fibrillation, he may well be a candidate for electrophysiologically guided radiofrequency ablation of his atrial flutter so that antiarrhythmic therapy can be discontinued. In light of his dialysis dependent renal insufficiency, despite his multiple risk factors, oral anticoagulation would not be advised. The literature currently demonstrates no significant survival advantage with oral anticoagulation in such patients as the risk of hemorrhagic complications is 10 times higher than a patient without renal failure. He is allergic to ASPIRIN so even low-dose aspirin will not be administered. 2. Abnormal EKG: Has never had anginal chest discomfort. His echocardiogram shows no evidence of localized wall motion abnormality to suggest prior infarction. Even with his tachycardia, he has not had serial EKG changes and Troponin I levels are negative. As mentioned above in light of his multiple coronary risk factors we will plan on a pharmacological stress heart scan to further define his coronary prognosis. For the time being medications to prevent recurrent atrial tachyarrhythmia with rapid ventricular response would be dorado. He should be on a statin agent with his multiple risk factors and diabetes mellitus as well as well documented severe peripheral vascular disease. Atorvastatin 40 mg daily will be started. 3. Heart failure (diastolic dysfunction/chronic): As previously mentioned has had documented left ventricle hypertrophy, likely on the basis of his chronic obesity and hypertension dating back to at least 2014 with significant left atrial enlargement and elevated mean left atrial pressure at that time. He is supposed to be following a modest salt and fluid intake restriction with his dialysis and is being treated with torsemide 40 mg daily. The only pharmacological therapy which has been shown to perhaps be beneficial with heart failure and preserved ejection fraction is spirolactone. We have started low-dose spirolactone 12.5 mg daily. Ideally, he should be following a low-carbohydrate diet because of his diabetes and obesity. Every pound he loses should improve his ability to ambulate, but reduce his cardiac and pulmonary workload. 4. Hypertensive heart disease (benign with heart failure): Continues to have impressive systolic hypertension as mentioned above. In light of this, I have replaced the prescribed metoprolol with increased dose carvedilol as described above. He will continue on his torsemide and now low-dose spirolactone. Further medication adjustments may be necessary depending on his response to these agents. 5. Cardiac murmur: Systolic murmur believed to a manifestation of a flow phenomenon alone. Echocardiogram performed earlier today showed normal appearing mitral and aortic valvular apparatus without obvious valve dysfunction despite previously noted mitral insufficiency. Tricuspid valve appeared to be normal at this time and competent. Has no symptoms or signs of endocarditis. 6. Hyperlipidemia type 4: As previously mentioned should be following a low-carbohydrate weight reducing diet, especially with his diabetes and obesity. The importance of dietary measures and regular exercise should be emphasized. With his documented severe peripheral vascular disease, statin therapy would be strongly advised and atorvastatin 40 mg at bedtime has been started at this time. I will plan on following him closely with you for the time being. I appreciate the opportunity to participate in his care. Best regards, YOON
[2019-09-16] MEDS: FLECAINIDE 50MG TABLET PO SCH (22:12)
[2019-09-16 23:45] VITALS: BP 154/82
[2019-09-17 04:00] VITALS: BP 160/92
[2019-09-17] MEDS: SLF 3 ML SYR IV SCH ×3 (05:34→21:28)
[2019-09-17] MEDS: CARVedilol 12.5 MG TAB PO SCH ×3 (05:34→17:38)
[2019-09-17 07:33] LABS: BASO % 0.2 % (0.0-1.0); EOS # 0.1 10^3/uL (0.0-0.5); EOS % 1.3 % (0.0-3.0); HEMATOCRIT 25.5 % (42.0-52.0); HEMOGLOBIN 8.5 g/dl (13.5-17.5); LYMPH # 2.1 10^3/uL (1.5-5.0); LYMPH % 25.2 % (24.0-44.0); MEAN CORPUSCULAR HEMOGLOBIN 29.7 pg (27.0-33.0); MEAN CORPUSCULAR HGB CONC 33.3 g/dl (32.0-36.5); MEAN CORPUSCULAR VOLUME 89.2 fl (80.0-96.0); MONO # 0.7 10^3/uL (0.0-0.8); MONO % 8.6 % (0.0-5.0); NEUTROPHILS # 5.4 10^3/uL (1.5-8.5); NEUTROPHILS % 63.7 % (36.0-66.0); PLATELET COUNT, AUTOMATED 186 10^3/uL (150-450); RED BLOOD COUNT 2.86 10^6/uL (4.30-6.10); WHITE BLOOD COUNT 8.4 10^3/uL (4.0-10.0)
[2019-09-17] MEDS: ADVAIR HFA 230/21MCG INHALER INH SCH ×2 (07:40→20:05)
[2019-09-17 08:00] VITALS: BP 148/78
--- NOTE | 2019-09-17 08:05 | ECGEPIP ---
[facility] Test Date: 2019-09-17 Pat Name: JESSICA MOORE JR Department: Room: [place] [address] Gender: Male Head Of Loss Prevention: [place] : 1965 Requested By: Rancho Webster Order Number: [id number] Reading MD: Rancho Webster Measurements Intervals [place] Rate: 70 P: 76 CO: 191 QRS: 17 QRSD: 106 T: 64 QT: 431 QTc: 467 Interpretive Statements Atrial bigeminy LA conduction disturbance Somewhat low limb voltage with slow precordial R-wave progression and persistent S waves V5 and V6; body habitus versus pulmonary disease. No significant change from 09/16/19 Electronically Signed on 09-17-2019 8:04:54 EDT by Rancho Webster
[2019-09-17 08:25] LABS: CALCIUM LEVEL 8.6 MG/DL (8.5-10.1); CREATININE FOR GFR 5.38 MG/DL (0.70-1.30); MAGNESIUM LEVEL 2.1 MG/DL (1.8-2.4); POTASSIUM SERUM 4.1 MEQ/L (3.5-5.1)
[2019-09-17] MEDS: SUCROFERRIC OXYHYDROXIDE 500MG CHEW TAB (VELPHORO) PO SCH ×3 (08:51→17:44)
[2019-09-17] MEDS: FLECAINIDE 50MG TABLET PO SCH ×2 (08:51→21:27)
[2019-09-17] MEDS: CALCIUM ACETATE 667 MG GELCAP PO SCH ×3 (08:51→17:44)
[2019-09-17] MEDS: LEVEMIR (INSULIN DETEMIR) 1 UNITS/0.01ML SC SCH ×2 (08:52→21:28)
[2019-09-17] MEDS: HumaLOG INSULIN (NovoLOG) PER UNIT SC SCH ×4 (08:52→21:28)
[2019-09-17] MEDS: SPIRONOLACTONE 12.5MG PER 1/2 TABLET PO SCH (09:00)
[2019-09-17] MEDS: TORSEMIDE 20 MG TAB PO SCH (09:00)
--- NOTE | 2019-09-17 10:57 | IPNPDOC ---
Date Seen The patient was seen on 09/17/19. Progress Note SUBJECTIVE: Patient is a 54-year-old male with a history of end-stage renal disease on dialysis, poorly controlled insulin-dependent diabetes mellitus, and chronic hypertension who presented to the emergency room with new onset atrial flutter. Patient states he is feeling well this morning. He denies any new issues or complaints. He states he slept well last night. He denies any fevers, chills, headache, dizziness, nausea, vomiting, diarrhea, chest pain, palpitations, or shortness of breath. OBJECTIVE PHYSICAL EXAMINATION: VITAL SIGNS: Please see below. GENERAL: Well-nourished, well-developed, not in apparent distress, laying comfortably in bed HEENT: Normocephalic, atraumatic, PERRLA, EOMI, mucous membranes moist and pink CARDIOVASCULAR: Regular rate and rhythm, normal S1 and S2, no murmurs, rubs or gallops LUNGS: Clear to auscultation bilaterally with equal air entry bilaterally ABDOMEN: Soft, nontender, nondistended, bowel sounds present MUSCULOSKELETAL: Range of motion is intact in all 4 extremities SKIN: Overall warm, pink, dry. EXTREMITIES: Patient's legs are tightly wrapped and he states he does have wounds underneath these wraps and with dressings. NEUROLOGICAL: Alert and oriented 3 to person, place and time. Cranial nerves 212 grossly intact. No focal deficits appreciated. PSYCHIATRIC: Mood and affect appropriate LABORATORY DATA, IMAGING STUDIES, MICROBIOLOGY: Please see below. ASSESSMENT AND PLAN: Patient is a 54-year-old male with a history of end-stage renal disease on dialysis, poorly controlled insulin-dependent diabetes mellitus, and chronic hypertension who presented to the emergency room with new onset atrial flutter. PROBLEMS: 1. s/p Atrial flutter Patient was found to be tachycardic during his dialysis on 09/15 and was taken to the emergency room for further evaluation and found to be in atrial flutter. Patient has since converted to sinus rhythm and will continue on metoprolol tartrate 50 mg twice a day Anticoagulation was started with heparin since he has end-stage renal disease, Heparin drip was discontinued as per Cardiology Echocardiogram reviewed without any valvular disease Cardiology consult, appreciate their input and recommendations. Patient started on flecainide, carvedilol, spironolactone, amlodipine, atorvastatin, and potassium supplementation. 2. Uncontrolled IDDM with Hyperglycemia His last A1c was 10.1 in June. Consistent carbohydrate diet. Continue home insulin regimen and sliding scale insulin. Continue to assess his insulin requirements daily and may change his home regimen if indicated 3. ESRD on HD Continue with home medications. Renal diet. Nephrology consult for continued dialysis. Dialysis planned for today. 4. Normocytic Normochromic Anemia Likely due to ESRD/chronic medical disease Iron panel done in June was consistent with iron deficiency. 5. Chronic Asthma Continue home medications 6. Chronic Hypertension Patient on Coreg at home, which has been discontinued at this time. Patient currently on metoprolol tartrate for rate control, will continue to assess his need for additional antihypertensives as this is titrated 7. Peripheral vascular disease hx of stent placement in femoral artery. not on dual antiplatelet therapy 8. Chronic CAD / Hx of NSTEMI Patient on Coreg and metoprolol 9. Obesity BMI 33.4 Complicates care We will suggest stopping scoring and outpatient sleep study to assess for ADWOA in discharge summary DVT prophylaxis: Teds and SCDs, ambulation DISPOSITION: Dialysis today, likely discharge home tomorrow VS, I&O, 24H, [facility] Vital Signs/I&O Vital Signs Date Time Temp Pulse Resp B/P (MAP) Pulse Ox O2 Delivery O2 Flow Rate FiO2 09/17/19 05:34 73 176/83 09/17/19 04:00 98.1 18 94 Room Air I&O- Last 24 Hours up to 6 AM 09/17/19 06:00 Intake Total 840 ml Output Total 1050 ml Balance -210 ml Laboratory Data 24H LABS Laboratory Tests 2 09/16/19 11:22: Bedside Glucose (Misc Panel) 296H 09/16/19 12:39: Activated Partial Thromboplast Time 32.0 09/16/19 17:07: Bedside Glucose (Misc Panel) 278H 09/16/19 20:28: Bedside Glucose (Misc Panel) 373H 09/17/19 07:22: Immature Granulocyte % (Auto) 1.0, Neutrophils (%) (Auto) 63.7, Lymphocytes (%) (Auto) 25.2, Monocytes (%) (Auto) 8.6H, Eosinophils (%) (Auto) 1.3, Basophils (%) (Auto) 0.2, Neutrophils # (Auto) 5.4, Lymphocytes # (Auto) 2.1, Monocytes # (Auto) 0.7, Eosinophils # (Auto) 0.1, Basophils # (Auto) 0.0, Nucleated Red Blood Cells % (auto) 0.0, Anion Gap 9, Glomerular Filtration Rate 12.0L, Calcium Level 8.6, Magnesium Level 2.1 09/17/19 07:39: Bedside Glucose (Misc Panel) 261H CBC/BMP Laboratory Tests 09/17/19 07:22 GME ATTESTATION GME ATTESTATION My faculty preceptor for this patient encounter was physically present during the encounter and was fully available. All aspects of the patient interview, examination, medical decision making process, and medical care plan development were reviewed and approved by the faculty preceptor. The faculty preceptor is aware and concurs with the plan as stated in the body of this note and will attest to such by his/her cosignature. ATTENDING NOTE I, Christian Jackman, have independently examined this patient and performed my own physical exam, as well as reviewed the documentation and edited where necessary. I have discussed in detail with the resident / student the findings and plan of treatment as documented by the resident / student and edited their note. I agree with their findings and treatment plan and have edited their documentation. I will continue to follow the patient during this hospital stay. MARILY MANRIQUEZ PGY-1 Sep 17, 2019 10:57 CHRISTIAN JACKMAN MD Sep 17, 2019 15:10
[2019-09-17] MEDS ORDERED: DARBEPOETIN 100 MCG/0.5 ML *DIALYSIS* SYRINGE (J0882) IV SCH (11:30)
[2019-09-17] MEDS ORDERED: HEPARIN 1,000 UNITS/ML 10ML VIAL (FOR RADIOLOGY& DIALYSIS ONLY) XX ONE (13:00)
[2019-09-17] MEDS ORDERED: HEPARIN 1,000 UNITS/ML 10ML VIAL (FOR RADIOLOGY& DIALYSIS ONLY) IV ONE (13:00)
--- NOTE | 2019-09-17 14:07 | IPN ---
DATE: 09/17/2019 SUBJECTIVE: Jarocho is seen and examined this morning in the hemodialysis unit receiving his maintenance treatment. Denies any overnight events or complaints. Has not had any palpitations or chest pain. Goal fluid removal with dialysis today is 2.5 liters. Vital signs: Temperature 96.7, pulse 70, respiratory rate 18, blood pressure 148/78, saturating 98% on room air. General: The patient is seen in the hemodialysis unit receiving his maintenance treatment. Awake, alert, oriented, comfortable and in no acute respiratory distress. Extraocular muscles are intact. Tongue is moist. There is poor dentition. Neck is supple. Jugular veins are not elevated. Heart sounds are irregularly irregular and normal rate, systolic murmur present. Respiratory: Symmetric bilateral air entry. No crackles, rales or rhonchus. There is prolonged expiration. Abdomen is soft, obese and nontender. There are bowel sounds. Extremities show pedal edema present, more so on the right lower extremity than the left. Left foot wound was not examined. Neurologic: Oriented times three. No focal deficit. Cooperative with physical examination. LABORATORIES: White count 8.4, hemoglobin 8.5, platelet 186, sodium 140, potassium 4.1, bicarbonate 26, BUN 74, creatinine 5.3. MEDICATIONS: Inpatient medications reviewed by myself. The patient is now receiving amlodipine 5 mg p.o. b.i.d., atorvastatin 40 mg p.o. q.h.s., Carvedilol 25 mg p.o. q. 6-hour, Aranesp with dialysis, Flecainide 50 mg p.o. twice daily. Insulin was adjusted by the primary team. Spironolactone 12.5 mg daily. Remainder of medications are unchanged from prior. PROBLEMS: 1. End-stage renal disease on hemodialysis on a Saturday, , Saturday schedule via a tunneled left chest wall hemodialysis catheter. The patient is dialyzed for 3-1/2 hours today with 2.5 liters of fluid removed. He is tolerating his treatment without any hemodynamic issues. His electrolytes are acceptable. He is mildly hypervolemic on exam, and we will continue to remove fluid as tolerated by his hemodynamics. 2. New onset atrial flutter. He has been evaluated by cardiology. Anticoagulation has been discontinued. He is rate controlled with Carvedilol 25 mg q. 6-hourly and is also on flecainide twice a day. His potassium and magnesium are acceptable. He has been started on low dose spironolactone by cardiology. Would need to monitor his potassium given his end-stage renal disease. 3. Diastolic congestive heart failure. The patient does have residual renal function. He continues on loop diuretic, in addition to oral fluid restriction and three times weekly hemodialysis with usual fluid removal of 2-3 liters as tolerated by hemodynamics. He has been started on low dose spironolactone by cardiology. We will need to keep a close eye on his serum potassium with the same.
[2019-09-17 14:15] VITALS: BP 149/77
[2019-09-17] MEDS: amLODIPine 5 MG TAB PO SCH ×2 (14:54→20:37)
[2019-09-17 16:00] VITALS: BP 111/64
[2019-09-17 20:00] VITALS: BP 116/56
[2019-09-17] MEDS: ATORVASTATIN 20 MG TAB PO SCH (21:27)
--- NOTE | 2019-09-17 21:52 | IPN ---
DATE: 09/17/2019 CARDIOLOGY PROGRESS NOTE SUBJECTIVE: The patient has been up in the room and has been feeling well. Underwent dialysis earlier today without any cardiovascular complaint. Has been tolerating his combination medical therapy we started yesterday without problems. OBJECTIVE: This somewhat scruffy obese middle-aged male appears to be comfortable sitting on the edge of the bed. Heart rate 76 beats per minute and regular with occasional irregularity, blood pressure sitting 116/56 (following his dialysis). Pressures earlier today were considerably higher. Respiratory rate 18, oxygen (O2) saturation 96% on room air. He is afebrile. His weight today is 4 kg less than yesterday. Remains free of audible wheeze at this time. TELEMETRY: This shows sustained sinus rhythm with considerably fewer atrial ectopic beats than yesterday on his current combination carvedilol and low-dose flecainide. No further bouts of atrial tachyarrhythmia. EKG: Tracing taken earlier today was reviewed independently and shows atrial bigeminy with rate averaging 70 beats per minute (bpm). Left atrial conduction disturbance. Findings in keeping with his body habitus and pulmonary disease. No significant change from the previous morning. LABORATORY DATA: Hemoglobin earlier this morning was 8.5 with normal white blood cell count and platelet count. Electrolytes this morning showed normalization of his potassium, other electrolytes were in balance. BUN was up to 74, creatinine up to 5.38 prior to his dialysis. Fasting glucose this morning was elevated at 274!. IMPRESSION/PLAN: 1. Paroxysmal atrial flutter: Fortunately he has suffered no recurrence even following his dialysis today. Combination carvedilol and flecainide appear to be protecting him. This afternoon he has considerably less atrial ectopic than earlier today and yesterday. We will continue on his current carvedilol with hold parameters for heart rate less than 60 or blood pressure less than 130 systolic. I am trying to evaluate how much of the carvedilol he will actually tolerate. Also remains on low-dose spironolactone. 2. Abnormal EKG: Remains free of any chest discomfort. EKG shows no repolarization change. Appears to tolerate his current combination carvedilol and atorvastatin restarted yesterday. Allergic to aspirin. Again, we plan on obtaining a pharmacological stress heart scan as an outpatient. 3. Heart failure (diastolic dysfunction/chronic): Currently appears compensated having lost 4 kg of fluid with his dialysis. Supposedly following a modest salt and fluid intake restriction and currently on combinations torsemide and low-dose spironolactone. Chemistry this morning prior to his dialysis showed correction of his hypokalemia. 4. Hypertensive heart disease (benign with heart failure): Impressive blood pressure earlier today improved with combination carvedilol and low-dose amlodipine in addition to his torsemide and spironolactone. Doses of his carvedilol have had to be withheld along with further doses of Norvasc in light of his soft blood pressure post dialysis. I am cautiously optimistic we should be able to determine an effective and tolerated combination antihypertensive and antiarrhythmic regimen by tomorrow afternoon. Our plan will be to arrange for a 30-day event monitor as an outpatient to further assess the efficacy of this regimen and rule out further asymptomatic nonsustained runs of atrial flutter. Again,, as mentioned, should further episodes be documented, we would be inclined to recommend referral for electrophysiologically guided radiofrequency ablation.
[2019-09-18] VITALS: BP 127/63
[2019-09-18 04:00] VITALS: BP 131/62
[2019-09-18 05:36] LABS: HEMATOCRIT 26.3 % (42.0-52.0); HEMOGLOBIN 8.5 g/dl (13.5-17.5); MEAN CORPUSCULAR HGB CONC 32.3 g/dl (32.0-36.5); MEAN CORPUSCULAR VOLUME 89.8 fl (80.0-96.0); PLATELET COUNT, AUTOMATED 211 10^3/uL (150-450); RED BLOOD COUNT 2.93 10^6/uL (4.30-6.10); WHITE BLOOD COUNT 9.7 10^3/uL (4.0-10.0)
[2019-09-18 06:07] LABS: CALCIUM LEVEL 8.8 MG/DL (8.5-10.1); CREATININE FOR GFR 4.38 MG/DL (0.70-1.30); GLOMERULAR FILTRATION RATE 15.2 (>56); MAGNESIUM LEVEL 2.1 MG/DL (1.8-2.4); POTASSIUM SERUM 4.2 MEQ/L (3.5-5.1)
[2019-09-18] MEDS: SLF 3 ML SYR IV SCH ×3 (06:46→21:27)
[2019-09-18] MEDS: CARVedilol 12.5 MG TAB PO SCH ×4 (06:46→18:21)
--- NOTE | 2019-09-18 07:12 | REPVR ---
PROCEDURE INFORMATION: Exam: US Duplex Right Lower Extremity Veins, Limited Exam date and time: 09/18/2019 6:17 AM Clinical history: 54 years old, male; Edema, localized; Lower extremity, right; Additional info: Swelling TECHNIQUE: Imaging protocol: Real-time Duplex ultrasound of the Right Lower Extremity with 2-D charles scale, color Doppler flow and spectral waveform analysis with image documentation. Limited exam was focused on the right lower extremity veins. COMPARISON: US VEIN MAPPING PRE AVF 07/24/2019 2:54 PM FINDINGS: Right deep veins: Unremarkable. The common femoral, femoral, proximal profunda femoral and popliteal veins are patent without thrombus. Normal Doppler waveforms. Normal compressibility and/or augmentation response. Right superficial veins: Unremarkable. Saphenofemoral junction is patent without thrombus. Calf veins were not evaluated on this exam. Soft tissues: Unremarkable. IMPRESSION: No evidence of deep venous thrombosis above the knee. The calf veins were not evaluated on this exam. Electronically signed by: Eugenio Justice On 09/18/2019 07:11:51 AM
[2019-09-18 08:00] VITALS: BP 129/81
[2019-09-18] MEDS: amLODIPine 5 MG TAB PO SCH (09:00)
[2019-09-18] MEDS: LEVEMIR (INSULIN DETEMIR) 1 UNITS/0.01ML SC SCH ×2 (09:10→21:26)
[2019-09-18] MEDS: HumaLOG INSULIN (NovoLOG) PER UNIT SC SCH ×4 (09:11→21:27)
[2019-09-18] MEDS: CALCIUM ACETATE 667 MG GELCAP PO SCH ×3 (09:11→18:18)
[2019-09-18] MEDS: SPIRONOLACTONE 12.5MG PER 1/2 TABLET PO SCH (09:11)
[2019-09-18] MEDS: TORSEMIDE 20 MG TAB PO SCH (09:20)
[2019-09-18] MEDS: SUCROFERRIC OXYHYDROXIDE 500MG CHEW TAB (VELPHORO) PO SCH ×3 (09:20→18:18)
[2019-09-18] MEDS: FLECAINIDE 50MG TABLET PO SCH ×2 (09:21→21:25)
[2019-09-18] MEDS: ADVAIR HFA 230/21MCG INHALER INH SCH ×2 (09:29→19:45)
--- NOTE | 2019-09-18 11:02 | IPNPDOC ---
Date Seen The patient was seen on 09/18/19. Progress Note SUBJECTIVE: Patient is a 54-year-old male with a history of end-stage renal disease on dialysis, poorly controlled insulin-dependent diabetes mellitus, and chronic hypertension who presented to the emergency room with new onset atrial flutter. Patient states he is feeling well this morning. He denies any new issues or complaints. He states he slept well last night. He denies any fevers, chills, headache, dizziness, nausea, vomiting, diarrhea, chest pain, palpitations, or shortness of breath. Patient states he did take his compressive dressings off of his legs last night and did have some bleeding from dry skin. The patient states that this is normal for him. The night team was concerned about some swelling in his right leg compared to the left and increased calf tenderness in the right compared to the left. The patient states his right leg is always more swollen and tender and that this has been stable. OBJECTIVE PHYSICAL EXAMINATION: VITAL SIGNS: Please see below. GENERAL: Well-nourished, well-developed, not in apparent distress, laying comfortably in bed HEENT: Normocephalic, atraumatic, PERRLA, EOMI, mucous membranes moist and pink CARDIOVASCULAR: Regular rate and rhythm, normal S1 and S2, no murmurs, rubs or gallops LUNGS: Clear to auscultation bilaterally with equal air entry bilaterally ABDOMEN: Soft, nontender, nondistended, bowel sounds present MUSCULOSKELETAL: Range of motion is intact in all 4 extremities SKIN: Overall warm, pink, dry. EXTREMITIES: Patient's legs are tightly wrapped and he states he does have wounds underneath these wraps and with dressings. NEUROLOGICAL: Alert and oriented 3 to person, place and time. Cranial nerves 212 grossly intact. No focal deficits appreciated. PSYCHIATRIC: Mood and affect appropriate LABORATORY DATA, IMAGING STUDIES, MICROBIOLOGY: Please see below. ASSESSMENT AND PLAN: Patient is a 54-year-old male with a history of end-stage renal disease on dialysis, poorly controlled insulin-dependent diabetes mellitu s, and chronic hypertension who presented to the emergency room with new onset atrial flutter. PROBLEMS: # s/p Atrial flutter Patient was found to be tachycardic during his dialysis on 09/15 and was taken to the emergency room for further evaluation and found to be in atrial flutter. Patient has since converted to sinus rhythm and will continue on metoprolol tartrate 50 mg twice a day Anticoagulation was started with heparin since he has end-stage renal disease, Heparin drip was discontinued as per Cardiology Echocardiogram reviewed without any valvular disease Cardiology consult, appreciate their input and recommendations. Patient started on flecainide, carvedilol, spironolactone, amlodipine, atorvastatin, and potassium supplementation. Medications will be titrated for rate control, rhythm control, and blood pressure control in order to determine appropriate discharge dosing. # Lower extremity swelling. Patient states this is chronic and stable. Right lower extremity duplex ultrasound negative for DVT above the knee. # Uncontrolled IDDM with Hyperglycemia His last A1c was 10.1 in June. Consistent carbohydrate diet. Continue home insulin regimen and sliding scale insulin. Continue to assess his insulin requirements daily and may change his home regimen if indicated # ESRD on HD Continue with home medications. Renal diet. Nephrology consult for continued dialysis. Dialysis planned for today. # Normocytic Normochromic Anemia Likely due to ESRD/chronic medical disease Iron panel done in June was consistent with iron deficiency. # Chronic Asthma Continue home medications # Chronic Hypertension Patient on Coreg at home, which has been discontinued at this time. Patient currently on metoprolol tartrate for rate control, will continue to assess his need for additional antihypertensives as this is titrated # Peripheral vascular disease hx of stent placement in femoral artery. not on dual antiplatelet therapy # Chronic CAD / Hx of NSTEMI Patient on Coreg and metoprolol # Obesity BMI 33.4 Complicates care We will suggest stopping scoring and outpatient sleep study to assess for ADWOA in discharge summary # DVT prophylaxis: Teds and SCDs, ambulation DISPOSITION: likely discharge home tomorrow after Cardio clearance VS, I&O, 24H, Emilie Vital Signs/I&O Vital Signs Date Time Temp Pulse Resp B/P (MAP) Pulse Ox O2 Delivery O2 Flow Rate FiO2 09/18/19 08:00 97.2 68 18 129/81 (97) 97 Room Air I&O- Last 24 Hours up to 6 AM 09/18/19 06:00 Intake Total 1350 ml Output Total 3200 ml Balance -1850 ml Laboratory Data 24H LABS Laboratory Tests 2 09/17/19 17:29: Bedside Glucose (Misc Panel) 299H 09/17/19 21:11: Bedside Glucose (Misc Panel) 416H 09/17/19 21:14: Bedside Glucose (Misc Panel) 413H 09/18/19 05:20: Nucleated Red Blood Cells % (auto) 0.0, Anion Gap 8, Glomerular Filtration Rate 15.2L, Calcium Level 8.8, Magnesium Level 2.1 09/18/19 09:08: Bedside Glucose (Misc Panel) 176H CBC/BMP Laboratory Tests 09/18/19 05:20 GME ATTESTATION GME ATTESTATION My faculty preceptor for this patient encounter was physically present during the encounter and was fully available. All aspects of the patient interview, examination, medical decision making process, and medical care plan development were reviewed and approved by the faculty preceptor. The faculty preceptor is aware and concurs with the plan as stated in the body of this note and will attest to such by his/her cosignature. ATTENDING NOTE I, Christian Jackman, have independently examined this patient and performed my own physical exam, as well as reviewed the documentation and edited where necessary. I have discussed in detail with the resident / student the findings and plan of treatment as documented by the resident / student and edited their note. I agree with their findings and treatment plan and have edited their documentation. I will continue to follow the patient during this hospital stay. MARILY MANRIQUEZ PGY-1 Sep 18, 2019 11:02 CHRISTIAN JACKMAN MD Sep 18, 2019 15:41
[2019-09-18] MEDS ORDERED: IRON SUCROSE 100MG 5ML VIAL (J1756 PER 1MG) IV SCH (11:30)
[2019-09-18 12:00] VITALS: BP 148/82
--- NOTE | 2019-09-18 12:31 | ECGEPIP ---
[facility] Test Date: 2019-09-18 Pat Name: JESSICA MOORE JR Department: Room: [place] [address] Gender: Male Design Project Manager: ELE : [id number] Requested By: Rancho Webster Order Number: [id number] Reading MD: Rancho Webster Measurements Intervals [place] Rate: 90 P: 75 CO: 214 QRS: 32 QRSD: 105 T: 67 QT: 374 QTc: 459 Interpretive Statements SINUS RHYTHM WITH FIRST DEGREE AV BLOCK LA conduction disturbance. Reduction in atrial ectopic activity noted 09/17/19. Electronically Signed on 09-18-2019 12:31:39 EDT by Rancho Webster
[2019-09-18 13:31] LABS: PERCENT SATURATION 14.8 % (19.7-50.0)
--- NOTE | 2019-09-18 14:07 | IPN ---
DATE OF SERVICE: 09/18/2019 SUBJECTIVE: The patient is seen and examined this morning at the bedside. He was dialyzed yesterday with 2500 mL of fluid removed. Denies any overnight events or complaints. Vital Signs: Temperature 97.2, pulse 68, respiratory rate 18, blood pressure 129/81, saturating 97% on room air. Intake yesterday was 675, urine output was 850, dialysis removed 2500, net negative 2.6 liters. Weight in the bed scale today is 119.6 kg. General: The patient is seen lying in bed. Head of bed elevated. Middle age male in no acute distress. Extraocular muscles are intact. Tongue is moist. Neck: Supple. Jugular veins are not elevated. Cardiac: S1, S2. Irregular irregular. Chronic venous stasis changes of the legs with 1+ edema bilaterally at least. Lungs with symmetric air entry without crackles or rales. No tachypnea or accessory muscle use. Comfortable on room air. Abdomen is soft, obese and nontender. There are bowel sounds. The tunneled hemodialysis catheter in the left chest wall has a dressing that is clean, dry and intact. Lower extremities show chronic venous stasis changes and edema. His wounds were not examined. LABS: White count 9.7, hemoglobin 8.5, sodium 138, potassium 4.2. Iron panel is pending. Magnesium 2.1. INPATIENT MEDICATIONS: Insulin was adjusted by the primary team. Remainder of medications are unchanged from prior. PROBLEMS: 1. End-stage renal disease on hemodialysis on a Saturday, , Saturday schedule via a tunneled left chest wall hemodialysis catheter. He was dialyzed yesterday without hemodynamic instability for a 3.5 hour treatment with 2.5 liters of fluid removed. His next dialysis will be on Saturday as an inpatient with plan for discharge likely after dialysis. His electrolytes are acceptable and he is mildly hypervolemic on exam and we will continue to remove fluid as tolerated by his hemodynamics. 2. New onset atrial flutter. The patient continues on rate controlling medications with carvedilol and flecainide. Potassium and magnesium are acceptable. He is now on low dose spironolactone. The nursing staff did hold several doses of the carvedilol because of systolic in the 110s and 120s. In light of this, I am reducing amlodipine to once daily. 3. Diastolic congestive heart failure. He does have residual renal function. He continues on combination torsemide and was started on spironolactone on this admission. He is on oral fluid restriction. He receives hemodialysis three times weekly with usual fluid removal of 2-3 liters as tolerated by hemodynamics. 4. Hypertension. The patient has been started on q. 6 hourly carvedilol and also low dose spironolactone on this admission. I have cut the amlodipine down to once a day as I see several doses of carvedilol were held due to the soft blood pressure and I do not feel that this patient will check his blood pressure at home four times daily in order to dose his meds. 5. Anemia and end-stage kidney disease. He continues on Aranesp and iron supplementation. Hemoglobin is suboptimal, but stable.
[2019-09-18 16:00] VITALS: BP 121/55
[2019-09-18 20:00] VITALS: BP 118/58
--- NOTE | 2019-09-18 20:25 | IPN ---
DATE: 09/18/2019 CARDIOLOGY PROGRESS NOTE SUBJECTIVE: The patient has been up and ambulating without chest pain, shortness of breath or dizziness. Appears to tolerate his current combination medical therapy without adverse effect. OBJECTIVE: Obese, slightly barrel-chested, middle-aged male sat comfortably. Heart rate 72 beats per minute and regular, blood pressure 145/70, respiratory rate 18, oxygen (O2) saturation 96% on room air. Afebrile. Weight today is down 5 pounds from yesterday with his dialysis yesterday. Despite his hemoglobin of 8.5, he does not appear markedly pale. Normal oral moisture. No central cyanosis. Trachea midline. Neck veins were below the level of his clavicle sitting, increased anteroposterior chest diameter but normal chest expansion. RADIOACTIVITY TECHNICIAN: This shows fairly consistent sinus rhythm with considerably less atrial ectopic activity and no atrial fibrillation/flutter. EKG: Tracing taken earlier today shows sinus rhythm with first-degree atrioventricular (AV) block, left atrial conduction disturbance. Somewhat low limb voltage, slow precordial R-wave progression and persistent S waves V5 and V6, all in keeping with his body habitus and pulmonary disease. LABORATORY DATA: Blood work today showed a hemoglobin of 8.5. Normal white blood cell count and platelet count. Electrolytes this morning were in balance with BUN 56, creatinine 4.4, fasting glucose was still relatively high at 252, magnesium level was normal at 2.1. IMPRESSION/PLAN: 1. Paroxysmal atrial flutter: No further recurrence of atrial tachyarrhythmia. His frequent premature atrial contractions (PACs) are dramatically less on his current combination therapy. Our plan is to discharge him home on carvedilol 37.5 mg twice a day and flecainide 50 mg twice a day. As mentioned, he is allergic to aspirin and the literature documents no significant survival advantage with oral anticoagulation in patients with atrial flutter on dialysis because of the significantly increased risk of bleeding. We will plan on arranging for an outpatient 30-day event monitor to further document the efficacy of his current pharmacological therapy. Should he prove to have further bouts of atrial flutter or fibrillation, it may be prudent to consider radiofrequency ablation. 2. Abnormal EKG: Has multiple coronary risk factors but freedom from any symptomatic myocardial ischemia. EKG shows no serial repolarization change. We would still recommend obtaining a pharmacological stress heart scan as an outpatient to further objectively define his coronary prognosis. At this time, he will be on protective carvedilol and atorvastatin. As previously mentioned, he is allergic to aspirin. 3. Heart failure (diastolic dysfunction/chronic): No current symptom or sign of congestion with his dialysis and torsemide therapy. As mentioned, we have started him on low-dose spironolactone as this has been shown to prevent further left ventricular hypertrophy as well as decrease the risk of atrial tachyarrhythmias. It was also protecting him from previously documented hypokalemia. 4. Hypertensive heart disease (benign with heart failure): Considerably improved systolic hypertension on his current combination carvedilol, torsemide, and spirolactone. He has also received Norvasc, and I believe this should be a medication he uses 5 mg daily. We have discussed taking his medications prior to his dialysis, but later that evening following his dialysis, he will not take carvedilol should his pulse rate be less than 60 or systolic blood pressure be less than 130 mmHg. I understand his usual dialysis days are Tuesdays, and Saturdays. I suspect he will be able to be discharged tomorrow. My office will be contacting him for a followup appointment in approximately 7-10 days time so we can arrange for those noninvasive tests as described above.
[2019-09-18] MEDS: ATORVASTATIN 20 MG TAB PO SCH (21:26)
[2019-09-19] VITALS: BP 138/80
[2019-09-19] MEDS: CARVedilol 12.5 MG TAB PO SCH ×3 (00:13→12:53)
[2019-09-19 04:00] VITALS: BP 126/82
[2019-09-19 06:02] LABS: HEMATOCRIT 26.8 % (42.0-52.0); HEMOGLOBIN 8.5 g/dl (13.5-17.5); MEAN CORPUSCULAR HEMOGLOBIN 28.3 pg (27.0-33.0); MEAN CORPUSCULAR HGB CONC 31.7 g/dl (32.0-36.5); MEAN CORPUSCULAR VOLUME 89.3 fl (80.0-96.0); PLATELET COUNT, AUTOMATED 198 10^3/uL (150-450); WHITE BLOOD COUNT 9.3 10^3/uL (4.0-10.0)
[2019-09-19] MEDS: SLF 3 ML SYR IV SCH ×2 (06:16→12:54)
[2019-09-19 06:28] LABS: CALCIUM LEVEL 8.5 MG/DL (8.5-10.1); CREATININE FOR GFR 5.27 MG/DL (0.70-1.30); GLOMERULAR FILTRATION RATE 12.3 (>56); MAGNESIUM LEVEL 2.2 MG/DL (1.8-2.4)
[2019-09-19] MEDS ORDERED: FLEC25TA PO (07:28)
[2019-09-19] MEDS ORDERED: INSUDET SC (07:28)
[2019-09-19] MEDS ORDERED: AMLO5TAB6 PO (07:28)
[2019-09-19] MEDS ORDERED: CARV25TA PO (07:28)
[2019-09-19] MEDS ORDERED: ALDA25TA2 PO (07:28)
[2019-09-19] MEDS: SUCROFERRIC OXYHYDROXIDE 500MG CHEW TAB (VELPHORO) PO SCH ×3 (07:30→12:52)
[2019-09-19] MEDS: CALCIUM ACETATE 667 MG GELCAP PO SCH ×3 (08:00→12:52)
[2019-09-19] MEDS: LEVEMIR (INSULIN DETEMIR) 1 UNITS/0.01ML SC SCH (08:02)
[2019-09-19] MEDS: HumaLOG INSULIN (NovoLOG) PER UNIT SC SCH ×2 (08:03→13:05)
[2019-09-19] MEDS: ADVAIR HFA 230/21MCG INHALER INH SCH (08:43)
[2019-09-19] MEDS ORDERED: amLODIPine 5 MG TAB PO SCH (09:00)
[2019-09-19 12:40] VITALS: BP 135/68
[2019-09-19] MEDS: SPIRONOLACTONE 12.5MG PER 1/2 TABLET PO SCH (12:52)
[2019-09-19] MEDS: TORSEMIDE 20 MG TAB PO SCH (12:52)
[2019-09-19 12:54] VITALS: BP 135/75
[2019-09-19] MEDS: FLECAINIDE 50MG TABLET PO SCH (12:54)
--- NOTE | 2019-09-19 13:51 | DS.PDOC ---
Discharge Summary General Date of Admission Sep 15, 2019 at 21:34 Date of Discharge 09/19/2019 Attending Physician: CHRISTIAN DUNHAM MD Discharge Summary PROCEDURES PERFORMED DURING STAY: None ADMITTING DIAGNOSES: 1. Atrial Flutter 2. Uncontrolled IDDM 3. ESRD on dialysis 4. Normocytic normochromic anemia 5. Chronic asthma 6. HTN 7. Peripheral vascular disease 8. Chronic CAD 9. Obesity DISCHARGE DIAGNOSES: 1. Atrial Flutter, rate controlled 2. Uncontrolled IDDM 3. ESRD on dialysis 4. Normocytic normochromic anemia 5. Chronic asthma 6. HTN 7. Peripheral vascular disease 8. Chronic CAD 9. Obesity COMPLICATIONS/CHIEF COMPLAINT: Esrd On Dialysis, New Onset Atrial Flutter. HISTORY OF PRESENT ILLNESS: 54-year-old male with a history of end-stage renal disease on dialysis, poorly controlled insulin-dependent diabetes mellitus, and chronic hypertension who presented to the emergency room with tachycardia which was noticed during his regularly scheduled hemodialysis treatment. He states that her son notified him that his heart rate was elevated and that he needed further evaluation at the emergency department. He denied any symptoms during the episode. He denied any fevers, chills, headache, dizziness, nausea, vomiting, diarrhea, chest pain, palpitations, or increased shortness of breath beyond his baseline. He states he is unsure if he has had other episodes of this tachycardia since he does not experience any symptoms during them. HOSPITAL COURSE: While in the emergency department, the patient was treated with 5 mg metoprolol IV and started on metoprolol tartrate 50 mg by mouth. The patient was admitted to the hospital for further monitoring and medication adjus tment. Dr. Webster was consult did from cardiology. He switched the rate control medication to carvedilol and discontinue the metoprolol tartrate. He also started the patient on flecainide. The patient was also found to be hypertensive and was started on amlodipine. He was also started on a low-dose of spironolactone to prevent further left ventricular hypertrophy and decrease the risk of atrial tachyarrhythmias. He was continued on his home dose of torsemide as well. The carvedilol was titrated for twice daily dosing. Dr. Shaw from nephrology was consulted and the patient continued on his regular dialysis schedule while inpatient. On the day of discharge, the patient was adequately rate and rhythm controlled. He was not started on any anticoagulation due to his end-stage renal disease. He will follow up with cardiology in the outpatient setting for a 30 day event monitor, nuclear stress test, and continued management of his atrial flutter. During the patient's admission, he was also found to have lower extremity swelling which was worse in the right compared to the left. Right lower extremity duplex ultrasound was negative for DVT. DISCHARGE MEDICATIONS: Please see below. ALLERGIES: Please see below. PHYSICAL EXAMINATION ON DISCHARGE: VITAL SIGNS: Please see below. GENERAL: Well-nourished, well-developed, not in apparent distress, laying comfortably in bed HEENT: Normocephalic, atraumatic, PERRLA, EOMI, mucous membranes moist and pink CARDIOVASCULAR EXAMINATION: Regular rate and rhythm, normal S1 and S2, no murmurs, rubs or gallops RESPIRATORY EXAMINATION: Clear to auscultation bilaterally with equal air entry bilaterally ABDOMINAL EXAMINATION: Soft, nontender, nondistended, bowel sounds present EXTREMITIES: Patient's legs are tightly wrapped and he states he does have wounds underneath these wraps and with dressings. SKIN: Overall warm, pink, dry. NEUROLOGICAL EXAMINATION: Alert and oriented 3 to person, place and time. Cranial nerves 212 grossly intact. No focal deficits appreciated. PSYCHIATRIC EXAMINATION: Mood and affect appropriate LABORATORY DATA: Please see below. IMAGING FINDINGS: (per radiologist report) 09/15/19 CXR: No acute cardiopulmonary disease. Central venous catheter and cardiomegaly. 09/18/2019 U/S right LE: No evidence of deep venous thrombosis above the knee. The calf veins were not evaluated on this exam. PROGNOSIS: Fair ACTIVITY: As tolerated. DIET: Consistent carbohydrate DISCHARGE PLAN: Home after inpatient dialysis DISPOSITION: Home. DISCHARGE INSTRUCTIONS: 1. Follow-up with your PCP in 7-10 days 2. Follow up with Dr. Webster in cardiology in 2 weeks. 3. Please continue with your daily medications including changes made during your hospitalization, as outlined. 4. Continue dialysis as scheduled 5. If your symptoms return or your condition worsens, please call your PCP or return to the ED for further evaluation. ITEMS TO FOLLOWUP ON ON OUTPATIENT: 1. New onset atrial flutter, rate and rhythm controlled, no anticoagulation is suggested. 2. Lower extremity swelling and wound care DISCHARGE CONDITION: Stable. TIME SPENT ON DISCHARGE: 35 minutes. Vital Signs/I&Os Vital Signs Date Time Temp Pulse Resp B/P (MAP) Pulse Ox O2 Delivery O2 Flow Rate FiO2 09/19/19 06:00 69 122/68 09/19/19 04:00 97.9 18 97 Room Air I&O- Last 24 Hours up to 6 AM 09/19/19 06:00 Intake Total 960 ml Output Total 500 ml Balance 460 ml Laboratory Data Labs 24H Laboratory Tests 2 09/18/19 12:17: Bedside Glucose (Misc Panel) 275H 09/18/19 12:19: Iron Level 40L, Total Iron Binding Capacity 271, Transferrin % Saturation 14.8L, Ferritin 324 09/18/19 18:12: Bedside Glucose (Misc Panel) 264H 09/18/19 21:22: Bedside Glucose (Misc Panel) 336H 09/19/19 05:34: Nucleated Red Blood Cells % (auto) 0.0, Anion Gap 11, Glomerular Filtration Rate 12.3L, Calcium Level 8.5, Magnesium Level 2.2 CBC/BMP Laboratory Tests 09/19/19 05:34 FSBS Laboratory Tests Test 09/18/19 12:17 09/18/19 18:12 09/18/19 21:22 Range/Units Bedside Glucose (Misc Panel) 275 264 336 70-105 MG/DL Discharge Medications Scheduled Amlodipine Besylate (Amlodipine Besylate) 5 Mg Tablet, 5 MG PO DAILY Calcium Acetate (Calcium Acetate) 667 Mg Tablet, 667 MG PO WM, (Reported) Carvedilol (Carvedilol) 25 Mg Tablet, 37.5 MG PO BID Flecainide Acetate (Flecainide Acetate) 50 Mg Tablet, 50 MG PO Q12H Fluticasone Propion/Salmeterol (Advair Hfa 230-21 Mcg Inhaler) 12 Gm Hfa.aer.ad, 2 PUFF INH BID, (Reported) Insulin Aspart (Novolog Flexpen) 100 Unit/Ml Inj, 1 DOSE SC ACHS, (Reported) PER SLIDING SCALE Insulin Detemir (Levemir) 100 Unit/1 Ml Vial, 80 UNITS SC BID Spironolactone (Aldactone) 25 Mg Tablet, 12.5 MG PO QAM Sucroferric Oxyhydroxide (Velphoro) 500 Mg Tab.chew, 500 MG PO AC, (Reported) Torsemide (Torsemide) 20 Mg Tablet, 40 MG PO DAILY, (Reported) Scheduled PRN Albuterol Sulfate (Ventolin Hfa) 108 Mcg/Act Aer, 2 PUFF INH Q4H PRN for SHORTNESS OF BREATH, (Reported) Allergies Coded Allergies: aspirin (Verified Allergy, Unknown, 08/20/19) garlic (Verified Adverse Reaction, Intermediate, syncope, 08/20/19) silver (Verified Adverse Reaction, Intermediate, angulo, 08/20/19) GME ATTESTATION GME ATTESTATION My faculty preceptor for this patient encounter was physically present during the encounter and was fully available. All aspects of the patient interview, examination, medical decision making process, and medical care plan development were reviewed and approved by the faculty preceptor. The faculty preceptor is aware and concurs with the plan as stated in the body of this note and will attest to such by his/her cosignature. ATTENDING NOTE I, Christian Dunham, have independently examined this patient and performed my own physical exam, as well as reviewed the documentation and edited where necessary. I have discussed in detail with the resident / student the findings and plan of treatment as documented by the resident / student and edited their note. I agree with their findings and treatment plan and have edited their documentation. I will continue to follow the patient during this hospital stay. Time spent on discharge: 35 minutes MARILY MANRIQEUZ PGY-1 Sep 19, 2019 13:51 CHRISTIAN DUNHAM MD Sep 19, 2019 16:05
[2019-09-19] MEDS ORDERED: HEPARIN 1,000 UNITS/ML 10ML VIAL (FOR RADIOLOGY& DIALYSIS ONLY) XX ONE (14:00)
[2019-09-19] MEDS ORDERED: HEPARIN 1,000 UNITS/ML 10ML VIAL (FOR RADIOLOGY& DIALYSIS ONLY) IV ONE (14:00)
--- NOTE | 2019-09-19 14:31 | IPN ---
DATE: 09/19/2019 Mr. Parrish is seen this morning during hemodialysis. He is feeling well and denies any palpitations, dyspnea or chest pain. He was admitted with atrial flutter and tachycardia which has improved. PHYSICAL EXAMINATION: Temperature 98.3 degrees Fahrenheit, heart rate 76 per minute and respiratory rate 15 per minute. Blood pressure 135/75 mmHg and oxygen saturation 96% on room air. Head is atraumatic. Neck is supple and there is no JVD or thyroid enlargement. His dialysis catheter on left upper chest is without any signs of infection or bleeding. His heart sounds are regular and lungs sound clear to auscultation. Abdomen is soft and nontender and bowel sounds are normal. Extremities without any cyanosis or clubbing. Skin wound on the left leg is covered with dressing. Neurologically he is awake, alert and at his baseline mentation. Today's labs show WBC count 9.3, hemoglobin 8.5 and hematocrit 26.8. Sodium 137, potassium 4.0, CO2 23, BUN 79 and creatinine 5.27. PROBLEMS: 1. End-stage renal disease. The patient is being dialyzed and he is tolerating dialysis treatment very well. We are trying to remove 2.5 liters of fluid. 2. Anemia. His anemia is stable and he is receiving intravenous iron and Aranesp during dialysis. No other intervention is indicated. 3. Atrial flutter. The patient seems to be doing well with well-controlled heart rate. He is not considered suitable for chronic anticoagulation due to chronic leg wounds and frequent need for debridements. His heart rate is well-controlled with Carvedilol. 4. Diabetes. His diabetes seems to be well controlled at present, though it has been not very well controlled at home. Last evening his blood sugar was high at 336. He remains on insulin with coverage per sliding scale. DISPOSITION: From a renal standpoint, the patient is doing very well and can be discharged to home when considered stable from cardiac standpoint.
--- NOTE | 2019-09-19 18:43 | ECGEPIP ---
[facility] Test Date: 2019-09-19 Pat Name: JESSICA MOORE JR Department: Room: [place] [address] Gender: Male Pt Skilled: [place] : 1965 Requested By: Rancho Webster Order Number: [id number] Reading MD: Prosper Perez Measurements Intervals [place] Rate: 67 P: 60 OK: 152 QRS: 19 QRSD: 100 T: 62 QT: 416 QTc: 442 Interpretive Statements SINUS RHYTHM WITH SINUS ARRHYTHMIA First degree AV block. Decreased heart rate compared with 09/18/2019 Electronically Signed on 09-19-2019 18:43:18 EDT by Prosper ePrez
== END 2019-09-19 14:35 | disposition home or self-care (01) | DRG 308 ==
LOC: M ED 17:42 → M ED INP 21:34 → M PCU 09-16 16:19
PROVIDERS: ADMIT Internal Medicine; ATTEND Internal Medicine
PROC: 5A1D70Z Performance of Urinary Filtration, Intermittent, Less than 6 Hours Per Day (ICD-10-PCS; principal; 2019-09-17)
DX: I48.92 Unspecified atrial flutter (principal); N18.6 End stage renal disease; I13.2 Hypertensive heart and chronic kidney disease with heart failure and with stage 5 chronic kidney disease, or end stage renal disease; I50.32 Chronic diastolic (congestive) heart failure; N25.81 Secondary hyperparathyroidism of renal origin; E11.51 Type 2 diabetes mellitus with diabetic peripheral angiopathy without gangrene; I25.10 Atherosclerotic heart disease of native coronary artery without angina pectoris; J45.909 Unspecified asthma, uncomplicated; E66.9 Obesity, unspecified; Z79.899 Other long term (current) drug therapy; Z79.4 Long term (current) use of insulin; Z88.6 Allergy status to analgesic agent; Z88.8 Allergy status to other drugs, medicaments and biological substances; Z91.018 Allergy to other foods; I25.2 Old myocardial infarction; D50.9 Iron deficiency anemia, unspecified; Z68.33 Body mass index [BMI] 33.0-33.9, adult; Z91.19 Patient's noncompliance with other medical treatment and regimen; D63.1 Anemia in chronic kidney disease; Z95.2 Presence of prosthetic heart valve; E78.5 Hyperlipidemia, unspecified; E11.65 Type 2 diabetes mellitus with hyperglycemia

== ENCOUNTER → 2019-10-20 | Outpatient (POV) | payer MEDICAID, MEDICARE ==
--- NOTE | 2019-10-14 11:31 | IRPN ---
[facility] IR Progress Note IR Progress Note DATE: Oct 13, 2019 No-show Allergies Coded Allergies: aspirin (Verified Allergy, Unknown, 08/20/19) garlic (Verified Adverse Reaction, Intermediate, syncope, 08/20/19) silver (Verified Adverse Reaction, Intermediate, angulo, 08/20/19) QUINCY BONILLA MD Oct 14, 2019 11:31
[~2019-10-20] VITALS: Ht 190.5 cm; Wt 122.0 kg
[~2019-10-20] MED LIST changes: +ALDA25TA2 PO; +AMLO5TAB6 PO; +CARV25TA PO; +FLEC25TA PO; +VELP5CHW PO
[2019-10-20 14:30] VITALS: BP 137/65
--- NOTE | 2019-10-21 14:45 | IRCOV ---
[facility] IR Consult Office Visit IR Consult Office Visit DATE: Oct 20, 2019 REASON FOR CONSULTATION/CHIEF COMPLAINT: Bilateral lower extremity pain. Nonhealing wounds. HISTORY OF PRESENT ILLNESS: 54-year-old male complains of pain in the legs bilaterally with walking less than 2 yards. Pain usually goes away with rest. Also describes some pain in the legs at night in both legs. This is not particularly relieved by hanging legs down. No history of cold leg. No amputations. No gangrene. Nonhealing pretibial ulcers, under the care of wound care. Prior history of CA. Denies chest pain. Denies stroke. Does describe paroxysmal nocturnal dyspnea and orthopnea. ALLERGIES: Please see below. HOME MEDICATIONS: Please see below. PAST MEDICAL HISTORY: CAD Diabetes Hypertension Renal failure PAST SURGICAL HISTORY: No prior surgeries in the legs FAMILY HISTORY: Noncontributory SOCIAL HISTORY: Nonsmoker. No alcohol or drugs REVIEW OF SYSTEMS: Otherwise negative PHYSICAL EXAMINATION: VITAL SIGNS: Please see below. GENERAL APPEARANCE: Appears well. Comfortable at rest. HEENT: No scleral icterus. RESPIRATORY: Symmetric breath sounds. CARDIOVASCULAR: Normal rate. ABDOMEN: Soft nontender. EXTREMITIES: Right lower; edema to knees. Purple in color. Warm to touch. Superficial open wounds. Lymphedema. Femoral pulse 2+. Left lower; edema to knees. Purple. Warm. Open superficial wounds on the tibia. Lymphedema. Femoral pulse 2+. NEUROLOGICAL: Alert and oriented. PSYCHIATRIC: Appropriate to circumstance. LABORATORY DATA: 09/19/2019 hemoglobin 8.5 hematocrit 26.8 WBC 9.3 platelets 198-1020 619 sodium 137 potassium 4.0 BUNs 79 creatinine 5.27 hemoglobin A1c 10 Imaging: I personally reviewed the arterial ultrasound of the lower extremities from August 2019. There is distal left SFA stenosis. Monophasic waveforms in the popliteal and runoff vessels. Monophasic waveforms in the right SFA and runoff vessels. ASSESSMENT/PLAN: 54 male with CAD, renal failure, intermittent claudication with abnormal waveform on bilateral lower extremity arterial study. I agree patient would benefit from angiography and intervention as appropriate in the same setting. We'll schedule the patient for left leg angiography and intervention first. I discussed the risks and benefits of the procedure with the patient and patient would like to proceed. We'll perform the procedure under moderate sedation. I spent 30 minutes in consultation with the patient. Thank you for this referral. Cc Dr. Powers Allergies Coded Allergies: aspirin (Verified Allergy, Unknown, 08/20/19) garlic (Verified Adverse Reaction, Intermediate, syncope, 08/20/19) silver (Verified Adverse Reaction, Intermediate, angulo, 08/20/19) Home Medications Scheduled Amlodipine Besylate (Amlodipine Besylate), 5 MG PO DAILY Calcium Acetate (Calcium Acetate), 667 MG PO WM, (Reported) Carvedilol (Carvedilol), 37.5 MG PO BID Flecainide Acetate (Flecainide Acetate), 50 MG PO Q12H Fluticasone Propion/Salmeterol (Advair Hfa 230-21 Mcg Inhaler), 2 PUFF INH BID, (Reported) Insulin Aspart (Novolog Flexpen), 1 DOSE SC ACHS, (Reported) Insulin Detemir (Levemir), 80 UNITS SC BID Spironolactone (Aldactone), 12.5 MG PO QAM Sucroferric Oxyhydroxide (Velphoro), 500 MG PO AC, (Reported) Torsemide (Torsemide), 40 MG PO DAILY, (Reported) Scheduled PRN Albuterol Sulfate (Ventolin Hfa), 2 PUFF INH Q4H PRN for SHORTNESS OF BREATH, (Reported) VS, I&O, 24H, Fishbone Vital Signs/I&O Vital Signs Date Time Temp Pulse Resp B/P (MAP) Pulse Ox O2 Delivery O2 Flow Rate FiO2 10/20/19 14:30 97.1 86 18 137/65 (89) 95 Room Air QUINCY BONILLA MD Oct 21, 2019 14:45
== END ==
LOC: M IRPOV 14:26
PROVIDERS: ATTEND Radiology Diagnostic Radiology
DX: I70.213 Atherosclerosis of native arteries of extremities with intermittent claudication, bilateral legs (principal); I70.248 Atherosclerosis of native arteries of left leg with ulceration of other part of lower leg; I70.238 Atherosclerosis of native arteries of right leg with ulceration of other part of lower leg; L97.919 Non-pressure chronic ulcer of unspecified part of right lower leg with unspecified severity; L97.929 Non-pressure chronic ulcer of unspecified part of left lower leg with unspecified severity; E11.622 Type 2 diabetes mellitus with other skin ulcer; I10 Essential (primary) hypertension; I25.10 Atherosclerotic heart disease of native coronary artery without angina pectoris; N17.9 Acute kidney failure, unspecified

== ENCOUNTER → 2019-10-21 | Outpatient (CLI) | payer MEDICARE ==
[~2019-10-21] MED LIST changes: +HEPARIN 1,000 UNITS/ML 10ML VIAL (FOR RADIOLOGY& DIALYSIS ONLY) As Ordered ONE; +ISOVUE-300 61% 50ML VIAL (Q9967) As Ordered ONE; +LIDOCAINE 1% MDV 20ML VIAL As Ordered ONE; +MIDAZOLAM INJ 2 MG/2 ML VIAL (J2250) As Ordered ONE; +diphenhydrAMINE INJ 50MG/ML VIAL (J1200) As Ordered ONE; +fentaNYL 100 MCG/2 ML INJECTION (J3010) As Ordered ONE
--- NOTE | 2019-10-21 07:16 | IRHP ---
[facility] IR Pre-Procedure H & P General Date of Service: Oct 21, 2019 Procedure: Same Day Surgery Interval History and Physical I have seen the patient and reviewed last H & P performed within 30 days. There is no significant interval change. History of Present Illness Chief Complaint The patient is a 54-year-old male admitted with a reason for visit of PAD. PRE-PROCEDURE DIAGNOSIS:PAD HEART: normal rate. LUNGS: normal breathing at rest. ASA Classification ASA Classification: III-Severe systemic dis. Mallampati Score: II NPO: Yes Problems with prior sedation: No Obstructive Sleep Apnea: No Plan moderate sedation Allergies Coded Allergies: aspirin (Verified Allergy, Unknown, 08/20/19) garlic (Verified Adverse Reaction, Intermediate, syncope, 08/20/19) silver (Verified Adverse Reaction, Intermediate, angulo, 08/20/19) Home Medications Scheduled Amlodipine Besylate (Amlodipine Besylate), 5 MG PO DAILY Calcium Acetate (Calcium Acetate), 667 MG PO WM, (Reported) Carvedilol (Carvedilol), 37.5 MG PO BID Flecainide Acetate (Flecainide Acetate), 50 MG PO Q12H Fluticasone Propion/Salmeterol (Advair Hfa 230-21 Mcg Inhaler), 2 PUFF INH BID, (Reported) Insulin Aspart (Novolog Flexpen), 1 DOSE SC ACHS, (Reported) Insulin Detemir (Levemir), 80 UNITS SC BID Spironolactone (Aldactone), 12.5 MG PO QAM Sucroferric Oxyhydroxide (Velphoro), 500 MG PO AC, (Reported) Torsemide (Torsemide), 40 MG PO DAILY, (Reported) Scheduled PRN Albuterol Sulfate (Ventolin Hfa), 2 PUFF INH Q4H PRN for SHORTNESS OF BREATH, (Reported) VS, I&O, 24H, Fishbone Vital Signs/I&O Vital Signs Date Time Temp Pulse Resp B/P (MAP) Pulse Ox O2 Delivery O2 Flow Rate FiO2 10/21/19 06:43 99 77 18 97 Room Air QUINCY BONILLA MD Oct 21, 2019 07:16
--- NOTE | 2019-10-21 10:19 | POST-OPPD ---
Postoperative Procedure Note Date Of Procedure: Oct 21, 2019 Time Of Procedure: 10:16 PREOPERATIVE DIAGNOSIS: left leg PAD. non healing wounds POSTOPERATIVE DIAGNOSIS: same FINDINGS: Left SFA stenosis and multi segment stenosis and occlusion of PT/AT and peroneal. PROCEDURE: SFA and popliteal angioplasty. AT/PT and peroneal angioplasty. see full report under imaging tab SURGEON: Ezequiel ANESTHESIA: mod sed ESTIMATED BLOOD LOSS: < 5 ml COMPLICATIONS: none POSTOPERATIVE CONDITION: stable QUINCY BONILLA MD Oct 21, 2019 10:19
--- NOTE | 2019-10-21 15:17 | REP ---
IR Left leg angiogram. IR Ultrasound right groin. IR Ultrasound guided right common femoral artery access. IR Selective left iliac artery catheterization. IR Selective left common femoral artery catheterization. IR Left superficial femoral artery angioplasty. IR Left popliteal artery angioplasty. IR Super selective left anterior tibial artery catheterization and angioplasty. IR Super selective left peroneal artery catheterization and angioplasty. IR Super selective left posterior tibial artery catheterization and angioplasty. IR moderate sedation. Clinical Information: Left lower extremity pain and nonhealing wounds. Physician: Dr Nieves.Procedure: The patient was advised of the benefits, risks, and alternatives of the procedure and informed consent was obtained.A time out was performed with verification of the patient's name, MRN, site of procedure, and type of procedure to be performed. The patient was positioned in the supine position on the angiographic table. The site was prepped and draped in the usual sterile fashion.Moderate sedation was performed by the physician including the presence of an independent trained observer who assisted in monitoring the patient's level of consciousness and physiological status. Following the administration of Fentanyl and Versed, the physician spent 120 minutes of continuous [id number] time with the patient. A coke crusher operator radiograph reveals no gross abnormality. The right femoral artery was accessed with a micropuncture kit. A [employer] wire was advanced into the aorta. The micropuncture sheath was exchanged over the wire for a a 6-Estonian vascular sheath. A 4-Estonian flush catheter was advanced over the wire and used to catheterize the abdominal aorta. A pelvic arteriogram was performed. This demonstrates patent left common iliac, external iliac and internal iliac arteries. Patent left common femoral, proximal superficial femoral and profunda femoris. A Glidewire was advanced through the flush catheter and under fluoroscopy guidance was used to gain up and over access into the left common iliac artery. The flush catheter was exchanged over the wire for a glide cath. The glide cath in conjunction with a Glidewire was used to catheterize the left common femoral artery. A left leg angiogram was performed from this location. This demonstrates atherosclerotic disease and multi segment stenosis in the proximal superficial femoral artery. Patent profunda femoris. An angiogram further down the leg was performed and this demonstrates short segment stenosis in the mid and distal superficial femoral artery. Patent popliteal artery. A below-knee runoff arteriogram was performed and this demonstrates occluded peroneal artery. Patent anterior tibial and posterior tibial artery with multi segment stenosis and slow flow. Runoff to the foot demonstrates multi segment stenosis in the anterior tibial and posterior tibial artery which continue into the foot. A wire was advanced through the diagnostic catheter down to the popliteal artery, under fluoroscopy guidance. The catheter was removed over the wire. A 6 x 200 mm [place] balloon was advanced over the wire under fluoroscopy guidance and used to angioplasty the superficial femoral artery. Heparin was administered. After prolonged angioplasty, the balloon was deflated and repositioned into the mid and distal superficial femoral artery and used to angioplasty the mid and distal superficial femoral artery. The balloon was then deflated under fluoroscopy guidance and repositioned to the popliteal artery. The popliteal artery was angioplastied under fluoroscopy guidance. The balloon was deflated and removed over the wire. A micro catheter and micro wire were then advanced through the diagnostic catheter and in conjunction were used to super selectively catheterize the anterior tibial artery. The micro catheter was advanced over the wire down the anterior tibial artery to the foot. The catheter was removed over the wire. Contrast injection through the catheter confirmed location in the anterior tibial artery. No vessel spasm, cutoff or dissection. No extravasation. A 2 x 220 mm Shoaib balloon was advanced over the wire under fluoroscopy guidance and used to angioplasty the entire length of the anterior tibial artery. The balloon was deflated and retracted. The micro wire was advanced through the angioplasty catheter and used to catheterize the peroneal artery. The angioplasty balloon was removed over the wire. A micro catheter was advanced over the wire and in conjunction with a micro wire was used to super selectively recanalize the occluded peroneal artery all the way to the ankle. Intermittent contrast injections were used to confirm intraluminal position. No extravasation. The catheter was removed over wire. Additional heparin was administered. A 2 x 220 mm angioplasty balloon was advanced over the wire to the ankle and used to angioplasty the peroneal artery. The angioplasty balloon was retracted and in conjunction with a micro wire was used to catheterize the posterior tibial artery. After successful catheterization of the posterior tibial artery, the angioplasty balloon was advanced over the wire under fluoroscopy guidance to the ankle. The angioplasty balloon was used to angioplasty the entire length of the posterior tibial artery back to its origin. The angioplasty balloon was deflated and retracted to the popliteal artery. A post angioplasty follow-up arteriogram was performed and this demonstrates continuous good caliber flow in the anterior and posterior tibial artery from its origin all the way into the foot. Peroneal artery supply remains patchy and may be spastic. No extravasation. The catheter was removed over the wire. Post angioplasty arteriogram was performed of the superficial femoral artery and popliteal artery, through the sheath located in the left common femoral artery. This demonstrates improved flow in the entirety of the superficial femoral artery and popliteal artery. No extravasation, vessel dissection or spasm. The long sheath was exchanged over wire for a short sheath. A 6-Estonian Mynx device was used to close the groin arteriotomy and the sheath was removed. Hemostasis achieved. A sterile dressing was applied to the site. Patient tolerated the procedure well and was transferred to PRU in stable condition. Complications: None. Estimated blood loss: Less than 5 ml. Impression: 1. Left leg angiogram demonstrates multifocal stenosis in the superficial femoral artery. Multifocal stenosis in the anterior tibial and posterior tibial artery. Occlusion of the peroneal artery. 2. Successful angioplasty of superficial femoral artery. 3. Successful recanalization of peroneal artery and angioplasty. 4. Successful angioplasty of anterior tibial and posterior tibial arteries. 5. Post intervention improved outflow and runoff to the foot. Patient to follow up for right leg angiography and intervention. Thank you for this referral. Electronically Signed by Priscila Nieves MD 10/21/2019 03:15 P
[2019-10-21 16:00] VITALS: BP 165/84
== END ==
LOC: M IRPRO 06:34
PROVIDERS: ATTEND Radiology Diagnostic Radiology
DX: I70.213 Atherosclerosis of native arteries of extremities with intermittent claudication, bilateral legs (principal); I70.223 Atherosclerosis of native arteries of extremities with rest pain, bilateral legs; I70.248 Atherosclerosis of native arteries of left leg with ulceration of other part of lower leg; I70.238 Atherosclerosis of native arteries of right leg with ulceration of other part of lower leg
CPT/HCPCS: 37224; 37228; 37232; 75710; 99152; 99153; C1725; C1760; C1769; C1887; C1894; J1200; J2250; J3010; Q9967

== ENCOUNTER 2019-12-16 11:46 | Inpatient (IN) | payer MEDICARE ==
[~2019-12-16] VITALS: Ht 190.5 cm; Wt 120.7 kg
[~2019-12-16 11:46] MED LIST changes: -HEPARIN 1,000 UNITS/ML 10ML VIAL (FOR RADIOLOGY& DIALYSIS ONLY) As Ordered ONE; -ISOVUE-300 61% 50ML VIAL (Q9967) As Ordered ONE; -LIDOCAINE 1% MDV 20ML VIAL As Ordered ONE; -MIDAZOLAM INJ 2 MG/2 ML VIAL (J2250) As Ordered ONE; -diphenhydrAMINE INJ 50MG/ML VIAL (J1200) As Ordered ONE; -fentaNYL 100 MCG/2 ML INJECTION (J3010) As Ordered ONE
[2019-12-16] MEDS ORDERED: ACETAMINOPHEN 325 MG TAB PO ONE (12:00)
[2019-12-16] MEDS ORDERED: AMLO5TAB6 PO (12:50)
[2019-12-16] MEDS ORDERED: SPIR-10 PO (12:50)
[2019-12-16] MEDS ORDERED: ALLO100T PO (12:50)
[2019-12-16] MEDS ORDERED: INSUDET SC (12:50)
[2019-12-16] MEDS ORDERED: CARV25TA PO (12:50)
[2019-12-16] MEDS ORDERED: FLEC25TA PO (12:50)
--- NOTE | 2019-12-16 12:53 | REP ---
Portable chest x-ray: Single view. History: Septic shock. Comparison chest x-ray: September 15, 2019. Findings: EKG monitoring electrodes overlie the chest. There is a left internal jugular central venous line in place with its tip in the expected location of the superior vena cava. The lungs are symmetrically aerated and clear. Pleural angles are sharp. There is some mild pleuroparenchymal scarring in the left base unchanged. Pulmonary vasculature is not increased. Impression: Central venous line in place. Pleuroparenchymal scarring left base. No acute disease. Electronically Signed by Oseas Benitez MD 12/16/2019 12:44 P
[2019-12-16 13:03] LABS: VENOUS BASE EXCESS -2.3 (-2.0-2.0); VENOUS HCO3 23.5 MEQ/L (23.0-27.0); VENOUS O2 SATURATION 53.6 % (60.0-80.0); VENOUS PARTIAL PRESSURE CO2 44.4 mmHg (38.0-50.0); VENOUS PARTIAL PRESSURE O2 29.7 mmHg (30.0-50.0); VENOUS PH 7.342 UNITS (7.330-7.430); VENOUS STANDARD HCO3 21.6 MEQ/L; VENOUS TOTAL CO2 24.9 MEQ/L (24.0-28.0)
[2019-12-16 13:08] LABS: BASO % 0.2 % (0.0-1.0); HEMATOCRIT 41.5 % (42.0-52.0); HEMOGLOBIN 13.1 g/dl (13.5-17.5); LYMPH # 0.4 10^3/uL (1.5-5.0); LYMPH % 2.2 % (24.0-44.0); MEAN CORPUSCULAR HEMOGLOBIN 28.1 pg (27.0-33.0); MEAN CORPUSCULAR HGB CONC 31.6 g/dl (32.0-36.5); MEAN CORPUSCULAR VOLUME 89.1 fl (80.0-96.0); MONO # 0.2 10^3/uL (0.0-0.8); MONO % 1.2 % (0.0-5.0); NEUTROPHILS # 18.1 10^3/uL (1.5-8.5); NEUTROPHILS % 95.8 % (36.0-66.0); PLATELET COUNT, AUTOMATED 180 10^3/uL (150-450); RED BLOOD COUNT 4.66 10^6/uL (4.30-6.10); WHITE BLOOD COUNT 18.9 10^3/uL (4.0-10.0)
[2019-12-16 13:18] LABS: INR 1.28; PROTHROMBIN TIME 15.7 SECONDS (11.8-14.0)
[2019-12-16 13:19] LABS: PARTIAL THROMBOPLASTIN TIME 36.1 SECONDS (25.0-38.4)
[2019-12-16] MEDS ORDERED: cefTRIAXone SOD 2 GM in D5W MINI-BAG PLUS 50 ML IV ONE (13:45)
[2019-12-16] MEDS ORDERED: VANCOMYCIN HCL 2,000 MG in D5W 500 ML IV ONE (13:45)
[2019-12-16] MEDS ORDERED: VANCOMYCIN HCL 1,000 MG, VIAL MATE ADAPTER 1 EACH in D5W 250 ML IV ONE ×2 (14:30→15:30)
[2019-12-16 14:44] LABS: CALCIUM LEVEL 8.6 MG/DL (8.5-10.1); CREATININE FOR GFR 5.17 MG/DL (0.70-1.30); GLOMERULAR FILTRATION RATE 12.5 (>56); POTASSIUM SERUM 5.1 MEQ/L (3.5-5.1)
[2019-12-16 14:45] LABS: BILIRUBIN,DIRECT 0.3 MG/DL (0.0-0.2); C REACTIVE PROTEIN QUANTITATIV 29.3 MG/DL (0.00-0.30); TOTAL PROTEIN 7.6 GM/DL (6.4-8.2); TROPONIN I 0.04 NG/ML (< 0.10)
[2019-12-16 14:53] LABS: CK-MB VALUE MASS 1.2 NG/ML (<3.6); MB/CK RELATIVE INDEX 0.48 (< OR =4)
[2019-12-16 15:21] LABS: ERYTHROCYTE SEDIMENTATION RATE 89 mm/hr (0-20)
[2019-12-16] MEDS ORDERED: VANCOMYCIN INTERMITTENT/PULSE DOSING BY CLINICAL PHARMACIST PER DOSING PROTOCOL XX SCH (16:00)
[2019-12-16] MEDS ORDERED: VANCOMYCIN HCL 1,000 MG, VIAL MATE ADAPTER 1 EACH in D5W 250 ML IV SCH (16:00)
[2019-12-16] MEDS ORDERED: DEXTROSE 50% 50 ML SYRINGE IV PRN (16:45)
[2019-12-16] MEDS ORDERED: SODIUM CHLORIDE 0.9% 1000ML IV ONE ×2 (16:45→21:15)
[2019-12-16] MEDS ORDERED: MORPHINE 2 MG/ML 1ML VIAL (J2270) IV PRN (16:45)
[2019-12-16] MEDS ORDERED: GLUCAGON FOR INJ 1 MG VIAL (J1610) SC PRN (16:45)
[2019-12-16] MEDS ORDERED: GLUCOSE 4 GM CHEW TABLET PO PRN (16:45)
[2019-12-16] MEDS: ONDANSETRON 4MG/2ML VIAL (J2405) IV SCH ×2 (18:03→22:49)
[2019-12-16] MEDS: amLODIPine 5 MG TAB PO SCH (18:03)
[2019-12-16] MEDS: HumaLOG INSULIN (NovoLOG) PER UNIT SC SCH ×2 (18:04→21:00)
[2019-12-16 18:37] LABS: APPEARANCE, URINE CLOUDY (CLEAR); BACTERIA, URINE AUTO 1+ (NEGATIVE); BILIRUBIN, URINE AUTO NEGATIVE (NEGATIVE); BLOOD, URINE BLOOD 2+ (NEGATIVE); COLOR, URINE YELLOW (YELLOW); GLUCOSE, URINE (UA) AUTO 3+ mg/dL (NEGATIVE); KETONE, URINE AUTO NEGATIVE (NEGATIVE); LEUKOCYTE ESTERASE, URINE AUTO NEGATIVE (NEGATIVE); MUCUS, URINE SMALL (NEGATIVE); NITRITE, URINE AUTO NEGATIVE (NEGATIVE); PROTEIN, URINE AUTO 3+ mg/dL (NEGATIVE); RBC, URINE AUTO 6 /HPF (0-3); SPECIFIC GRAVITY URINE AUTO 1.018 (1.002-1.035); SQUAMOUS EPITHELIAL CELL UR AU 4 /HPF (0-6); UROBILINOGEN, URINE AUTO 0.2 mg/dL (0.0-2.0); WBC, URINE AUTO 12 /HPF (0-3)
[2019-12-16] MEDS: PIPERACILLIN/TAZOBACTAM SOD 4.5 GM in D5W MINI-BAG PLUS 50 ML IV SCH (19:00)
[2019-12-16 19:03] LABS: INFLUENZA A AMPLIFICATION NEGATIVE (NEGATIVE); INFLUENZA B AMPLIFICATION NEGATIVE (NEGATIVE)
--- NOTE | 2019-12-16 20:01 | ECGEPIP ---
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
[2019-12-16] MEDS ORDERED: ALBUTEROL SULFATE 2.5 MG/0.5 ML INH NEB SOLN NEB PRN (20:15)
--- NOTE | 2019-12-16 20:27 | HPEPDOC ---
General Date of Admission Dec 16, 2019 at 16:28 Date of Service: Dec 16, 2019 Chief Complaint The patient is a 54-year-old male admitted with a reason for visit of Cellulitis,Esrd. Source: Patient, RN/, Old records History of Present Illness 54 year old male with PMH is significant for ESRD on HD through left subclaviun permcath, DM with neuropathy and multiple other problems, bilateral lower extremety chronic wounds with h/o tibia and fibula osteomyelitis came to the ED with complaints of weakness, dizziness , nausea, vomiting along with severe pain and soreness of his right leg so that he could not walk on it . Before yesterday he was walking no no issues. in the ED he was febrile to tmax of 103.1, his wbc elevated, his lactate was elevated. He complained of 8/10 pain in his right leg, throbbing and aching and sometimes sharp extending from the thigh to the foot. there was also new discharge from the chronic ulcers and he said they broke open yesterday. He is admitted for Cellulitis of his right leg with possible lymphangitis and to rule out Perm cath infection. Home Medications Scheduled Allopurinol (Allopurinol) 100 Mg Tablet, 100 MG PO DAILY, (Reported) Amlodipine Besylate (Amlodipine Besylate) 5 Mg Tablet, 5 MG PO DAILY, (Reported) Calcium Acetate (Calcium Acetate) 667 Mg Tablet, 1,334 MG PO WM, (Reported) Carvedilol (Carvedilol) 25 Mg Tablet, 37.5 MG PO BID, (Reported) Flecainide Acetate (Flecainide Acetate) 50 Mg Tablet, 50 MG PO BID, (Reported) Insulin Aspart (Novolog Flexpen) 100 Unit/Ml Inj, 1 DOSE SC ACHS, (Reported) PER SLIDING SCALE Insulin Detemir (Levemir) 100 Unit/1 Ml Vial, 80 UNITS SC BID, (Reported) Spironolactone (Spironolactone) 25 Mg Tablet, 12.5 MG PO DAILY, (Reported) Torsemide (Torsemide) 20 Mg Tablet, 40 MG PO DAILY, (Reported) Scheduled PRN Albuterol Sulfate (Ventolin Hfa) 108 Mcg/Act Aer, 2 PUFF INH Q4H PRN for SHORTNESS OF BREATH, (Reported) Fluticasone Propion/Salmeterol (Advair Hfa 230-21 Mcg Inhaler) 12 Gm Hfa.aer.ad, 2 PUFF INH BID PRN for SOB/WHEEZING, (Reported) Allergies Coded Allergies: aspirin (Verified Allergy, Unknown, 08/20/19) garlic (Verified Adverse Reaction, Intermediate, syncope, 08/20/19) silver (Verified Adverse Reaction, Intermediate, angulo, 08/20/19) Past Medical History Medical History ESRD status post left AV fistula which didn't mature, s/p right peritoneal dialysis catheter and now has left-sided peritoneal dialysis catheter Insulin-dependent diabetes mellitus. Chronic Asthma with H/o Status asthmaticus with acute hypercapnic respiratory failure February 2000. Morbid obesity Paroxysmal Atrial flutter Chronic Hypertension with hypertensive heart disease Diastolic CHF. Hyperlipidemia pulmonary hypertension Peripheral vascular disease status post stent placement in femoral artery History of non healing lower extremity wounds, lower extremity osteomyelitis / Status post left lower extremity wound VAC Chronic CAD / History of NSTEMI Status post left knee knee surgery. Status post cholecystectomy Status post tonsillectomy History of non-compliance with medical care Chronic venous stasis changes and lymphedema of both his lower extremities. Family History Diabetes Hypertension Cancer MOTHER: DIAGNOSED WITH SUBSTANCE ABUSE -ALCOHOL ADDICTION. Social History * Smoker: Denies Alcohol: Denies Drugs: denies A-FIB/CHADSVASC A-FIB History Current/History of A-Fib/PAF?: No Review of Systems Constitutional: Reports: Chills, Fever, Weakness, Fatigue Eyes: Denies: Pain, Vision change ENT: Denies: Head Aches, Ear Pain, Dysphagia Skin: Reports: Lesions (superficial ulcers on both legs. right more than left), Breakdown ( on the right leg with redness patchy extending upto the thigh.) Pulmonary: Denies: Dyspnea, Cough Cardiovascular: Denies: Chest Pain, Palpitations, Orthopnea, Paroxysmal Noc. Dyspnea, Lt Headedness Gastrointestinal: Reports: Nausea, Vomiting Genitourinary: Denies: Dysuria, Frequency, Incontinence, Retention Hematologic: Denies: Bruising, Bleeding Excessively Musculoskeletal: Denies: Neck Pain, Back Pain, Joint Pain, Muscle Pain, Spasms Physical Examination General Exam: Positive: Alert, Cooperative, No Acute Distress Eye Exam: Positive: PERRLA, Conjunctiva & lids normal, EOMI; Negative: Sclera icteric ENT Exam: Positive: Atraumatic, Mucous membr. moist/pink, Pharynx Normal Neck Exam: Positive: Supple; Negative: JVD, thyromegaly Chest Exam: Positive: Rhonchi, Wheezing Heart Exam: Positive: Rate Normal, Regular Rhythm, Normal S1, Normal S2, Murmurs (systolic murmur); Negative: Rubs Telemetry: Positive: No significant arrhythmia Abdomen Exam: Positive: Normal bowel sounds, Soft, Other (obese); Negative: Tenderness, Hepatospenomegaly Extremity Exam: Positive: Edema, Tenderness, Swelling Skin Exam: Positive: Breakdown, Other skin issue (lymphedema, chronic bilateral venous stasis changes with stasis ulcers. ) Neuro Exam: Positive: Normal Speech, Strength at 5/5 X4 ext, Normal Tone Psych Exam: Positive: Mental status NL, Mood NL, Oriented x 3 Vital Signs Vital Signs Date Time Temp Pulse Resp B/P (MAP) Pulse Ox O2 Delivery O2 Flow Rate FiO2 12/16/19 17:00 104 18 169/80 (109) 96 Room Air 12/16/19 14:41 99.6 Laboratory Data Labs 24H Laboratory Tests 2 12/16/19 12:48: Immature Granulocyte % (Auto) 0.6, Neutrophils (%) (Auto) 95.8H, Lymphocytes (%) (Auto) 2.2L, Monocytes (%) (Auto) 1.2, Eosinophils (%) (Auto) 0.0, Basophils (%) (Auto) 0.2, Neutrophils # (Auto) 18.1H, Lymphocytes # (Auto) 0.4L, Monocytes # (Auto) 0.2, Eosinophils # (Auto) 0.0, Basophils # (Auto) 0.0, Nucleated Red Blood Cells % (auto) 0.0, Erythrocyte Sedimentation Rate 89H, Prothrombin Time 15.7H, Prothromb Time International Ratio 1.28, Activated Partial Thromboplast Time 36.1, Blood Gas Bicarbonate Standard 21.6, Venous Blood pH 7.342, Venous Blood Partial Pressure CO2 44.4, Venous Blood Partial Pressure O2 29.7L, Venous Blood Total Carbon Dioxide 24.9, Venous Blood HCO3 23.5, Venous Blood Oxygen Saturation 53.6L, Venous Blood Base Excess -2.3L, Anion Gap 10, Glomerular Filtration Rate 12.5L, Lactic Acid Level 3.6*H, Calcium Level 8.6, Total Bilirubin 1.0, Direct Bilirubin 0.3H, Aspartate Amino Transf (AST/SGOT) 36, Alanine Aminotransferase (ALT/SGPT) 49, Alkaline Phosphatase 114, Total Creatine Kinase 252, Creatine Kinase MB 1.2, Creatine Kinase MB Relative Index 0.48, Troponin I 0.04, C-Reactive Protein, Quantitative 29.30H, Total Protein 7.6, Albumin 3.0L, Albumin/Globulin Ratio 0.65L, Amylase Level 20L 12/16/19 17:22: Lactic Acid Followup at 4 Hours 2.8*H 12/16/19 17:54: Bedside Glucose (Misc Panel) 227H CBC/BMP Laboratory Tests 12/16/19 12:48 Microbiology Microbiology 12/16/19 Blood Culture, Received Pending 12/16/19 Blood Culture, Received Pending Assessment/Plan 54 year old male with PMH is significant for ESRD on HD through left subclaviun permcath, DM with neuropathy and multiple other problems, bilateral lower extremety chronic wounds with h/o tibia and fibula osteomyelitis came to the ED with complaints of weakness, dizziness , nausea, vomiting along with severe pain and soreness of his right leg so that he could not walk on it . Before yesterday he was walking no no issues. in the ED he was febrile to tmax of 103.1, his wbc elevated, his lactate was elevated. He complained of 8/10 pain in his right leg, throbbing and aching and sometimes sharp extending from the thigh to the foot. there was also new discharge from the chronic ulcers and he said they broke open yesterday. He is admitted for Cellulitis of his right leg with possible lymphangitis and to rule out Perm cath infection. Cellutitis , lymphangitis of right leg with Sepsis will continue on vanco and Zosyn blood cultures sent Will give IVF cautiously. Nausea and vomiting will give zofran Rule out perm cath infection, tunnel is not tender awaiting culture Lactic acidosis due to sepsis will give small amount of fluid ESRD nephrology consulted for maintenance dialysis Anemia of chronic disease and secondary hyperthyroidism as per nephrology continue home meds Hypertension with hypertensive heart disease will continue will home meds COreg and amlodipine Diabetes with neuropathy, uncontrolled will give levemir and lispro per sliding scale Paroxysmal a flutter continue Flecainide. Chronic asthma with possibly pulmonary hypertension will continue with advair and albuterol prn Hyperuricemia continue allopurinol Chronic diastolic CHF faluid to be managed by HD. Morbid obesity complicating care. Plan / VTE VTE Prophylaxis Ordered?: Yes PRERNA LYNN MD Dec 16, 2019 18:27
--- NOTE | 2019-12-16 21:10 | PHACANCOPD ---
PHARMACY VANCOMYCIN DOSING Pt Demographics Demographics Patient Age:54 , Weight:190.000 , Gender: male Adjusted Body Weight Date: 12/16/19, Adjusted Body Weight: Kg Events Past 24 Hours Events Past 24 Hours: YES: Dialysis, Elevation in WBC; NO: Diuretic Therapy, Change in CrCl, Fever, Pending Diagnostics, Pending Procedures, Other Vancomycin Vancomycin indication: Cellulitis Vancomycin Target Ranges: 10-20 mcg/ml Vancomycin Load Y/N: Yes Load Dose Date Time Vancomycin Load Dose: 2000mg Date: 12/16/19 Time: 1500 Vancomycin Dose Date: 12/16/19. Current Vancomycin Dose: [ Intermittent vancomycin after hemodialysis ] Intermittent Dosing?: Yes Labs Labs Vital Signs Label Value Date Time Patient Temperature 97.0 degrees F 12/16/191914 Temperature Source Oral 12/16/191914 Pulse 102 12/16/191914 Blood Pressure Assessment 123/58 (79) 12/16/191914 Blood Pressure Assessment 107/54 (71) 12/16/191944 Blood Pressure Assessment 123/64 (83) 12/16/192029 Item Value Date Time White Blood Count 18.9 10^3/uL H 12/16/19 1248 Erythrocyte Sedimentation Rate 89 mm/hr H 12/16/19 1248 Lactic Acid Level 3.6 MMOL/L *H 12/16/19 1248 Lactic Acid Followup at 4 Hours 2.8 MMOL/L *H 12/16/19 1722 Creatinine 5.17 MG/DL H 12/16/19 1248 Glomerular Filtration Rate 12.5 L 12/16/19 1248 C-Reactive Protein, Quantitative 29.30 MG/DL H 12/16/19 1248 Micro Microbiology 12/16/19 Urine Culture, Received Pending 12/16/19 Blood Culture, Received Pending 12/16/19 Blood Culture, Received Pending Creatinine Clearance Date:12/16/19. Creatinine Clearance: [ ~20 mL/min ]. Assessment and Plan Maintaining Current Dose?: Yes Reason for dose change: Significant event, Other Pharmacist Note Pharmacist Note Date: 12/16/19. Pharmacist note: Patient is a 54-year-old male who presented to the [facility] emergency department with the admitting diagnosis of cellulitis. He is a diabetic patient with end-stage renal disease currently managed with hemod ialysis. He has multiple other co-morbidities. He was placed on broad-spectrum antibiotic therapy consisting of Zosyn 4.5 grams every 12 hours @1800 and vancomycin for methicillin-resistant S. aureus coverage. He previously received vancomycin at [facility], where he received intermittent dosing after hemodialysis. We will continue with this strategy for his current admission. A 2 gram loading dose was given in the emergency department today @1500. We will continue to monitor and make adjustments as needed. [facility] Dec 16, 2019 21:10
[2019-12-16 21:35] VITALS: BP 131/74
[2019-12-16] MEDS: FLECAINIDE 50MG TABLET PO SCH (22:47)
[2019-12-16] MEDS: HEPARIN SOD (PORCINE) 5000 UNITS/ML VIAL (J1644 PER 1000UNITS) SC SCH (22:48)
[2019-12-16] MEDS: CARVedilol 12.5 MG TAB PO SCH (22:48)
[2019-12-16] MEDS: LEVEMIR (INSULIN DETEMIR) 1 UNITS/0.01ML SC SCH (22:48)
[2019-12-16] MEDS: NS 1,000 ML IV SCH (22:49)
[2019-12-17] MEDS: ACETAMINOPHEN 500 MG TAB PO PRN (03:19)
[2019-12-17] MEDS: ONDANSETRON 4MG/2ML VIAL (J2405) IV SCH ×4 (03:46→23:23)
[2019-12-17 06:00] VITALS: BP 107/53
[2019-12-17] MEDS: PIPERACILLIN/TAZOBACTAM SOD 4.5 GM in D5W MINI-BAG PLUS 50 ML IV SCH (06:38)
[2019-12-17] MEDS: HEPARIN SOD (PORCINE) 5000 UNITS/ML VIAL (J1644 PER 1000UNITS) SC SCH ×2 (06:38→23:23)
[2019-12-17 07:14] LABS: BASO % 0.1 % (0.0-1.0); HEMATOCRIT 27.5 % (42.0-52.0); LYMPH # 0.8 10^3/uL (1.5-5.0); LYMPH % 6.1 % (24.0-44.0); MEAN CORPUSCULAR HEMOGLOBIN 28.4 pg (27.0-33.0); MEAN CORPUSCULAR VOLUME 88.7 fl (80.0-96.0); MONO # 0.5 10^3/uL (0.0-0.8); MONO % 3.4 % (0.0-5.0); NEUTROPHILS # 12.3 10^3/uL (1.5-8.5); PLATELET COUNT, AUTOMATED 140 10^3/uL (150-450); WHITE BLOOD COUNT 13.8 10^3/uL (4.0-10.0)
[2019-12-17 07:18] LABS: HEMOGLOBIN 8.8 g/dl (13.5-17.5)
[2019-12-17 07:29] LABS: CALCIUM LEVEL 8.2 MG/DL (8.5-10.1); GLOMERULAR FILTRATION RATE 10.6 (>56); POTASSIUM SERUM 4.6 MEQ/L (3.5-5.1)
[2019-12-17] MEDS: ADVAIR HFA 230/21MCG INHALER INH PRN (07:32)
--- NOTE | 2019-12-17 07:34 | REP ---
Right lower extremity deep vein duplex ultrasound: The deep veins demonstrate normal compression, normal Doppler color flow and normal Doppler waveforms with respiration and augmentation from the popliteal vein to the common femoral vein. There is a hypoechoic nodule in the right groin measuring one point 9 cm short axis, likely an enlarged right inguinal node. Impression: There is no deep vein thrombus. Enlarged right inguinal node. The study is technically difficult because of lower extremity edema and patient body habitus. Electronically Signed by Jayden Moser MD 12/16/2019 02:29 P
[2019-12-17] MEDS: amLODIPine 5 MG TAB PO SCH (09:00)
[2019-12-17] MEDS: CARVedilol 12.5 MG TAB PO SCH ×2 (09:00→23:25)
[2019-12-17] MEDS: LEVEMIR (INSULIN DETEMIR) 1 UNITS/0.01ML SC SCH ×2 (09:09→23:25)
[2019-12-17] MEDS: FLECAINIDE 50MG TABLET PO SCH ×2 (09:10→23:24)
[2019-12-17] MEDS: NS 1,000 ML IV SCH (09:11)
[2019-12-17] MEDS: HumaLOG INSULIN (NovoLOG) PER UNIT SC SCH ×4 (09:12→20:23)
--- NOTE | 2019-12-17 09:38 | IPNPDOC ---
Subjective Date Seen The patient was seen on 12/17/19. Subjective Chief Complaint/HPI No fevers overnight. But febrile to 101 this am. Says the leg soreness and pain is a little better, but still has nausea, denies any SOB, will be going for HD today. Objective Physical Examination General Exam: Positive: Alert, Cooperative, No Acute Distress Eye Exam: Positive: PERRLA, Conjunctiva & lids normal, EOMI; Negative: Sclera icteric ENT Exam: Positive: Atraumatic, Mucous membr. moist/pink, Pharynx Normal Neck Exam: Positive: Supple; Negative: JVD, thyromegaly Chest Exam: Positive: Rhonchi, Wheezing Heart Exam: Positive: Rate Normal, Regular Rhythm, Normal S1, Normal S2, Murmurs (systolic murmur); Negative: Rubs Telemetry: Positive: No significant arrhythmia Abdomen Exam: Positive: Normal bowel sounds, Soft, Other (obese); Negative: Tenderness, Hepatospenomegaly Extremity Exam: Positive: Edema, Tenderness, Swelling Skin Exam: Positive: Breakdown, Other skin issue (lymphedema, chronic bilateral venous stasis changes with stasis ulcers. ) Neuro Exam: Positive: Normal Speech, Strength at 5/5 X4 ext, Normal Tone Psych Exam: Positive: Mental status NL, Mood NL, Oriented x 3 Assessment /Plan Assessment 54 year old male with PMH is significant for ESRD on HD through left subclaviun permcath, DM with neuropathy and multiple other problems, bilateral lower extremety chronic wounds with h/o tibia and fibula osteomyelitis came to the ED with complaints of weakness, dizziness , nausea, vomiting along with severe pain and soreness of his right leg so that he could not walk on it . Before yesterday he was walking no no issues. in the ED he was febrile to tmax of 103.1, his wbc elevated, his lactate was elevated. He complained of 8/10 pain in his right leg, throbbing and aching and sometimes sharp extending from the thigh to the foot. there was also new discharge from the chronic ulcers and he said they broke open yesterday. He is admitted for Cellulitis of his right leg with possible lymphangitis and to rule out Perm cath infection. Cellutitis , lymphangitis of right leg with Sepsis will continue on vanco and Zosyn blood cultures sent Will give IVF cautiously. Nausea and vomiting will give zofran Rule out perm cath infection, tunnel is not tender awaiting culture Lactic acidosis due to sepsis will give small amount of fluid ESRD nephrology consulted for maintenance dialysis Anemia of chronic disease and secondary hyperthyroidism as per nephrology continue home meds Hypertension with hypertensive heart disease will continue will home meds COreg and amlodipine Diabetes with neuropathy, uncontrolled will give levemir and lispro per sliding scale Paroxysmal a flutter continue Flecainide. Chronic asthma with possibly pulmonary hypertension will continue with advair and albuterol prn Hyperuricemia continue allopurinol Chronic diastolic CHF faluid to be managed by HD. Morbid obesity complicating care. Plan/VTE VTE Prophylaxis Ordered?: Yes VS, I&O, 24H, Fishbone Vital Signs/I&O Vital Signs Date Time Temp Pulse Resp B/P (MAP) Pulse Ox O2 Delivery O2 Flow Rate FiO2 12/16/19 22:48 104 131/74 12/16/19 21:35 98.2 20 95 Room Air I&O- Last 24 Hours up to 6 AM 12/17/19 06:00 Intake Total 620 ml Output Total 0 ml Balance 620 ml Laboratory Data 24H LABS Laboratory Tests 2 12/16/19 12:48: Immature Granulocyte % (Auto) 0.6, Neutrophils (%) (Auto) 95.8H, Lymphocytes (%) (Auto) 2.2L, Monocytes (%) (Auto) 1.2, Eosinophils (%) (Auto) 0.0, Basophils (%) (Auto) 0.2, Neutrophils # (Auto) 18.1H, Lymphocytes # (Auto) 0.4L, Monocytes # (Auto) 0.2, Eosinophils # (Auto) 0.0, Basophils # (Auto) 0.0, Nucleated Red Blood Cells % (auto) 0.0, Erythrocyte Sedimentation Rate 89H, Prothrombin Time 15.7H, Prothromb Time International Ratio 1.28, Activated Partial Thromboplast Time 36.1, Blood Gas Bicarbonate Standard 21.6, Venous Blood pH 7.342, Venous Blood Partial Pressure CO2 44.4, Venous Blood Partial Pressure O2 29.7L, Venous Blood Total Carbon Dioxide 24.9, Venous Blood HCO3 23.5, Venous Blood Oxygen Saturation 53.6L, Venous Blood Base Excess -2.3L, Anion Gap 10, Glomerular Filtration Rate 12.5L, Lactic Acid Level 3.6*H, Calcium Level 8.6, Total Bilirubin 1.0, Direct Bilirubin 0.3H, Aspartate Amino Transf (AST/SGOT) 36, Alanine Aminotransferase (ALT/SGPT) 49, Alkaline Phosphatase 114, Total Creatine Kinase 252, Creatine Kinase MB 1.2, Creatine Kinase MB Relative Index 0.48, Troponin I 0.04, C-Reactive Protein, Quantitative 29.30H, Total Protein 7.6, Albumin 3.0L, Albumin/Globulin Ratio 0.65L, Amylase Level 20L 12/16/19 17:22: Lactic Acid Followup at 4 Hours 2.8*H 12/16/19 17:54: Bedside Glucose (Misc Panel) 227H 12/16/19 18:18: Urine Color YELLOW, Urine Appearance CLOUDYH, Urine pH 6.0, Urine Specific [place] 1.018, Urine Protein 3+H, Urine Glucose (Auto)(UA) 3+H, Urine Ketones (A uto) NEGATIVE, Urine Blood 2+H, Urine Nitrite NEGATIVE, Urine Bilirubin NEGATIVE, Urine Urobilinogen 0.2, Urine Leukocyte Esterase (Auto) NEGATIVE, Urine WBC (Auto) 12H, Urine RBC (Auto) 6H, Urine Hyaline Casts (Auto) 0, Urine Bacteria (Auto) 1+H, Urine Squamous Epithelial Cells 4, Urine Mucus (Auto) SMALL, Urine Sperm (Auto) SMALLH, Influenza Type A (RT-PCR) NEGATIVE, Influenza Type B (RT-PCR) NEGATIVE 12/16/19 21:29: Bedside Glucose (Misc Panel) 233H 12/17/19 03:36: Bedside Glucose (Misc Panel) 218H 12/17/19 06:53: CBC/BMP Laboratory Tests 12/16/19 12:48 Microbiology Microbiology 12/16/19 Urine Culture, Received Pending 12/16/19 Blood Culture, Received Pending 12/16/19 Blood Culture, Received Pending PRERNA LYNN MD Dec 17, 2019 07:08
[2019-12-17] MEDS ORDERED: NS 500 ML IV ONE (09:45)
[2019-12-17 10:35] LABS: PERCENT SATURATION 13.3 % (19.7-50.0)
--- NOTE | 2019-12-17 13:17 | CR ---
DATE OF CONSULTATION: 12/17/2019 REQUESTING PHYSICIAN: Dr. Radha Arroyo CONSULTING PHYSICIAN: Dr. Balderrama REASON FOR CONSULTATION: Management of end-stage renal disease on hemodialysis. CHIEF COMPLAINT: The patient presented to the hospital yesterday with weakness and dizziness along with pain in the right leg. HISTORY OF PRESENT ILLNESS: Jarocho Parrish is a 54 year old male with past medical history of end-stage renal disease on hemodialysis q. Saturday, Saturday, Saturday. Last hemodialysis was done on Saturday, he missed his hemodialysis yesterday. He is an insulin dependent diabetic with history of hypertension, chronic bilateral lower extremity edema and ulcerations, and multiple other comorbidities as mentioned below. He presented to the hospital yesterday with the feeling of weakness, dizziness, nausea, decreased appetite, vomiting, severe pain, redness and swelling of the right lower extremity. The patient was found to be febrile with a T-max of 103 degrees Fahrenheit in the emergency room. He was septic with tachycardia, lactic acidosis, leukocytosis and severe 8/10 pain in the right lower extremity along with throbbing pain and cellulitis. He was admitted under the hospitalist service last night with sepsis secondary to right lower extremity cellulitis. He was started on IV fluid hydration and broad-spectrum IV antibiotics. Nephrology service was called for further help in the management of this patient with end-stage renal disease. I saw and evaluated the patient today morning at the bedside. He reports that he is feeling slightly better today as compared with yesterday. His blood pressures are better. He continues to get IV fluid hydration and he was able to eat some breakfast today morning. The patient has not been dialyzed in the last 3 days. PAST MEDICAL HISTORY: Past medical history of end-stage renal disease on hemodialysis q. Saturday, Saturday and Saturday, history of diabetes mellitus type 2 insulin dependent, history of chronic asthma, morbid obesity, paroxysmal atrial flutter in the past, history of hypertension with hypertensive heart disease, chronic diastolic congestive heart failure, hyperlipidemia, peripheral vascular disease, history of her stent placement in the femoral artery, chronic nonhealing lower extremity ulcers, history of left lower extremity wound Vac placement in the past, coronary artery disease, and history of non ST segment myocardial infarction in the past. PAST SURGICAL HISTORY: Status post left knee surgery, status post cholecystectomy in the past, status post tonsillectomy, status post left internal jugular (IJ) tunneled hemodialysis catheter placement, history of AV fistula placement in the past that did not mature. ALLERGIES: The patient is allergic to ASPIRIN, GARLIC and SILVER. FAMILY HISTORY: No significant family history of end-stage renal disease. There is family history of diabetes and cancer. SOCIAL HISTORY: The patient denies any smoking, illicit drug abuse or alcohol abuse. REVIEW OF SYSTEMS: Constitutional: The patient reports feeling weak and he reports chills and fevers. Eyes: He denies any blurry vision or double vision. ENT: Denies any dysphagia, odynophagia or ear discharge. Cardiovascular: Denies any chest pain or palpitation. Does report lower extremity edema. Respiratory: He denies any shortness of breath or cough. GI: He reports nausea, vomiting and decreased appetite yesterday, but he reports it is getting better now. Genitourinary: He reports decreased urine output. Musculoskeletal: He reports severe pain in the right lower extremity and edema. 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 Psych: He denies any depression or anxiety. Endocrine: He reports diabetes mellitus type 2. Hematology/Oncology: He denies any easy bleeding or bruising. All other review of systems are negative. PHYSICAL EXAMINATION: General: The patient is awake, alert, oriented times, laying in bed, having some chills. Vital Signs: Temperature is 99 degrees Fahrenheit, T-max was 101.6 degrees Fahrenheit last night, blood pressure 107/53, pulse is 74, respiratory rate of 20, and saturating 95% on nasal cannula at 2 liters. Intake and output. There is no urine output recorded. Weight in the bed scale was 120 kg yesterday. Head and Neck Exam: Extraocular muscles intact. Pupils equally round and reactive to light. Neck is supple. There is no jugular venous distention (JVD). Cardiovascular: S1, S2, regular rate, 2+ edema of the bilateral lower extremities. Respiratory: Mildly decreased breath sounds at the bases with mild expiratory rhonchi at the base. Abdomen: Soft. Positive bowel sounds. Nontender. No organomegaly. Genitourinary: Bladder is not palpable. Musculoskeletal: The patient has cellulitis of the right lower extremity all the way up to his knee and according to the skin markings done yesterday his cellulitis is getting better. He also has a dressing on the left lower extremity. ELECTRICAL ENGINEERING PROFESSOR: No focal deficit. Power is 5/5 in bilateral upper extremities. Psych: Normal mood and affect. LAB REVIEW: CBC showed WBC of 18.9 yesterday and it is 13.8 right now, hemoglobin is 8.8 and platelets are 140. BMP showed sodium 136, potassium 4.6, chloride 101, bicarb 25, BUN 57, creatinine 6. Lactic acid was 3.6 initially and it was 2.8 on repeat numbers. Iron is 22, TIBC is 166, transferrin saturation is 13.3, and ferritin is 1184. CURRENT INPATIENT MEDICATIONS: The patient got normal saline 500 mL bolus yesterday. He was also getting normal saline at 100 mL an hour which I have stopped. He is on Zosyn and I have changed the dose to 2.25 grams IV q. 8 hourly. He also got a dose of Rocephin yesterday. The patient also got a dose of vancomycin. He is on Tylenol p.r.n., albuterol nebulizations, amlodipine 5 mg daily, Coreg 37.5 mg by mouth twice a day, flecainide, 50 mg by mouth twice a day, heparin subcutaneous, insulin Levemir 40 units subcutaneous twice a day, insulin sliding scale, morphine sulfate as needed, Zofran as needed and Advair twice a day. ASSESSMENT: 54-year-old male with history of end-stage renal disease on hemodialysis, insulin dependent diabetes, hypertension, chronic lower extremity ulcerations and paroxysmal atrial flutter admitted at this time with sepsis secondary to right lower extremity cellulitis. PLAN: 1. End-stage renal disease. The patient's regular dialysis days are Saturday, Saturday and Saturday. He was dialyzed on Saturday. He missed his dialysis yesterday. However, because of sepsis, I am going to hold off on dialysis today. Once the patient is clinically more stable, I will do his dialysis tomorrow morning. However, I am going to stop his IV fluid since his tachycardia is resolved and his blood pressures are within the acceptable range. He does not need any more IV fluids. 2. Sepsis secondary to right lower extremity cellulitis. The patient was admitted with fevers, leukocytosis, right lower extremity cellulitis and tachycardia. He was given broad-spectrum IV antibiotic including vancomycin and Zosyn. Cultures are still pending. Continue the current dose of vancomycin. Zosyn dose was decreased according to renal failure. 3. Diabetes mellitus type 2. The patient is an insulin dependent diabetic. Continue insulin sliding scale and Levemir at this time. 4. Hypertension with end-stage renal disease and hypertensive heart disease. Continue home dose of carvedilol and amlodipine. IV fluids are being stopped as mentioned above. 5. History of her paroxysmal atrial flutter. Continue current dose of flecainide 50 mg by mouth twice a day. 6. Anemia in end-stage renal disease. Hemoglobin is 8.8. The patient is iron deficient as well. Once his cellulitis gets better, I would start giving him IV iron as well and I am going to start the patient on Aranesp with dialysis. Thank you for involving me in the care of this patient. I shall be happy to follow the patient along with you tomorrow morning. YOON
[2019-12-17 13:42] VITALS: BP 108/58
[2019-12-17] MEDS: PANTOPRAZOLE 40MG INJ (PROTONIX) (C9113) IV ONE ×3 (14:01→15:38)
[2019-12-17] MEDS: ONDANSETRON 4MG/2ML VIAL (J2405) IV ONE ×2 (14:50→15:38)
[2019-12-17 15:38] LABS: CK-MB VALUE MASS 1.1 NG/ML (<3.6); CPK CREATINE PHOSPHOKINASE 106 U/L (39-308); MB/CK RELATIVE INDEX 1.04 (< OR =4); TROPONIN I < 0.02 NG/ML (< 0.10)
[2019-12-17] MEDS: PIPERACILLIN/TAZOBACTAM SOD 2.25 GM in D5W MINI-BAG PLUS 50 ML IV SCH ×2 (15:38→23:25)
--- NOTE | 2019-12-17 16:34 | ECGEPIP ---
[facility] Test Date: 2019-12-17 Pat Name: JESSICA MOORE Department: Room: [place] [address] Gender: Male Doctor Of Naturopathic Medicine: [place] : 1965 Requested By: PRERNA LYNN Order Number: [id number] Reading MD: Joce Noe Measurements Intervals [place] Rate: 75 P: 73 TX: 182 QRS: 44 QRSD: 103 T: 73 QT: 417 QTc: 466 Interpretive Statements Normal sinus rhythm with sinus arrhythmia Early anterior R wave progression Compared to prior tracing of 12/16/2019, heart rate is slower Electronically Signed on 12-17-2019 16:34:26 EST by Joce Noe
[2019-12-17 19:01] LABS: CK-MB VALUE MASS 1.3 NG/ML (<3.6); CPK CREATINE PHOSPHOKINASE 106 U/L (39-308); MB/CK RELATIVE INDEX 1.23 (< OR =4); TROPONIN I < 0.02 NG/ML (< 0.10)
[2019-12-17 22:00] VITALS: BP 139/89
[2019-12-18 02:54] LABS: CLOSTRIDIUM DIFFICILE PCR NEGATIVE (NEGATIVE)
[2019-12-18] MEDS: ONDANSETRON 4MG/2ML VIAL (J2405) IV SCH ×4 (04:53→22:31)
[2019-12-18 06:00] VITALS: BP 124/84
[2019-12-18] MEDS: CARVedilol 12.5 MG TAB PO SCH ×2 (06:03→21:00)
[2019-12-18] MEDS: amLODIPine 5 MG TAB PO SCH (06:03)
[2019-12-18 06:04] LABS: BASO % 0.2 % (0.0-1.0); EOS # 0.1 10^3/uL (0.0-0.5); EOS % 0.5 % (0.0-3.0); HEMATOCRIT 28.1 % (42.0-52.0); HEMOGLOBIN 8.9 g/dl (13.5-17.5); MEAN CORPUSCULAR HEMOGLOBIN 28.2 pg (27.0-33.0); MEAN CORPUSCULAR HGB CONC 31.7 g/dl (32.0-36.5); MEAN CORPUSCULAR VOLUME 88.9 fl (80.0-96.0); MONO # 0.8 10^3/uL (0.0-0.8); MONO % 6.4 % (0.0-5.0); NEUTROPHILS # 10.6 10^3/uL (1.5-8.5); NEUTROPHILS % 83.6 % (36.0-66.0); PLATELET COUNT, AUTOMATED 130 10^3/uL (150-450); RED BLOOD COUNT 3.16 10^6/uL (4.30-6.10); WHITE BLOOD COUNT 12.6 10^3/uL (4.0-10.0)
[2019-12-18] MEDS: PIPERACILLIN/TAZOBACTAM SOD 2.25 GM in D5W MINI-BAG PLUS 50 ML IV SCH ×3 (06:12→22:37)
[2019-12-18] MEDS: FLECAINIDE 50MG TABLET PO SCH ×2 (06:13→21:55)
[2019-12-18] MEDS: HEPARIN SOD (PORCINE) 5000 UNITS/ML VIAL (J1644 PER 1000UNITS) SC SCH ×2 (06:13→21:55)
[2019-12-18 06:37] LABS: CALCIUM LEVEL 8.4 MG/DL (8.5-10.1); CREATININE FOR GFR 6.42 MG/DL (0.70-1.30); GLOMERULAR FILTRATION RATE 9.8 (>56); POTASSIUM SERUM 4.2 MEQ/L (3.5-5.1); VANCOMYCIN RANDOM 18.9 UG/ML
[2019-12-18] MEDS: HumaLOG INSULIN (NovoLOG) PER UNIT SC SCH ×4 (08:38→20:59)
[2019-12-18] MEDS: LEVEMIR (INSULIN DETEMIR) 1 UNITS/0.01ML SC SCH ×2 (09:32→21:00)
[2019-12-18 11:45] VITALS: BP_SYST 104; BP_SYST 148; BP_SYST 151; BP_DIAS 65; BP_DIAS 79
[2019-12-18] MEDS: ACETAMINOPHEN 500 MG TAB PO PRN ×2 (13:11→21:56)
--- NOTE | 2019-12-18 13:53 | IPNPDOC ---
Subjective Date Seen The patient was seen on 12/18/19. Subjective Chief Complaint/HPI Complains of diarrhea since last night. had about 5 to 6 times liquid stools, c diff was checked was negative. He also complained of dizziness when he was getting up multiple times to go to the bathroom. This morning his orthostatic vitals were positive. Has some cramps. No fever or chills, no chest pain or sob. Yesterday had a chest pain with neg EKG and cardiac enzymes, He did vomit after the chest pain started possible GI related. Objective Physical Examination General Exam: Positive: Alert, Cooperative, No Acute Distress Eye Exam: Positive: PERRLA, Conjunctiva & lids normal, EOMI; Negative: Sclera icteric ENT Exam: Positive: Atraumatic, Mucous membr. moist/pink, Pharynx Normal Neck Exam: Positive: Supple; Negative: JVD, thyromegaly Chest Exam: Positive: Rhonchi, Wheezing Heart Exam: Positive: Rate Normal, Regular Rhythm, Normal S1, Normal S2, Murmurs (systolic murmur); Negative: Rubs Telemetry: Positive: No significant arrhythmia Abdomen Exam: Positive: Normal bowel sounds, Soft, Other (obese); Negative: Tenderness, Hepatospenomegaly Extremity Exam: Positive: Edema, Tenderness, Swelling Skin Exam: Positive: Breakdown, Other skin issue (lymphedema, chronic bilateral venous stasis changes with stasis ulcers. ) Neuro Exam: Positive: Normal Speech, Strength at 5/5 X4 ext, Normal Tone Psych Exam: Positive: Mental status NL, Mood NL, Oriented x 3 Assessment /Plan Assessment 54 year old male with PMH is significant for ESRD on HD through left subclaviun permcath, DM with neuropathy and multiple other problems, bilateral lower extremety chronic wounds with h/o tibia and fibula osteomyelitis came to the ED with complaints of weakness, dizziness , nausea, vomiting along with severe pain and soreness of his right leg so that he could not walk on it . Before yesterday he was walking no no issues. in the ED he was febrile to tmax of 103.1, his wbc elevated, his lactate was elevated. He complained of 8/10 pain in his right leg, throbbing and aching and sometimes sharp extending from the thigh to the foot. there was also new discharge from the chronic ulcers and he said they broke open yesterday. He is admitted for Cellulitis of his right leg with possible lymphangitis and to rule out Perm cath infection. Cellutitis , lymphangitis of right leg with Sepsis will continue on vanco and Zosyn blood cultures sent Nausea and vomiting zofran Diarrhea possibly antibiotic related C dif negative will give imodium. Rule out perm cath infection, tunnel is not tender awaiting culture Lactic acidosis due to sepsis will give small amount of fluid ESRD nephrology consulted for maintenance dialysis Anemia of chronic disease and secondary hyperthyroidism as per nephrology continue home meds Hypertension with hypertensive heart disease will continue will home meds COreg and amlodipine Diabetes with neuropathy, uncontrolled will give levemir and lispro per sliding scale Paroxysmal a flutter continue Flecainide. Chronic asthma with possibly pulmonary hypertension will continue with advair and albuterol prn Hyperuricemia continue allopurinol Chronic diastolic CHF fluid to be managed by HD. Morbid obesity complicating care. Plan/VTE VTE Prophylaxis Ordered?: Yes VS, I&O, 24H, Fishbone Vital Signs/I&O Vital Signs Date Time Temp Pulse Resp B/P (MAP) Pulse Ox O2 Delivery O2 Flow Rate FiO2 12/18/19 06:03 83 124/84 12/18/19 06:00 98.7 18 97 12/17/19 13:42 Room Air 12/17/19 06:00 2.0 I&O- Last 24 Hours up to 6 AM 12/18/19 06:00 Intake Total 1850 ml Output Total 175 ml Balance 1675 ml Laboratory Data 24H LABS Laboratory Tests 2 12/17/19 14:50: Total Creatine Kinase 106, Creatine Kinase MB 1.1, Creatine Kinase MB Relative Index 1.04, Troponin I < 0.02# 12/17/19 16:27: Bedside Glucose (Misc Panel) 142H 12/17/19 18:10: Total Creatine Kinase 106, Creatine Kinase MB 1.3, Creatine Kinase MB Relative Index 1.23, Troponin I < 0.02 12/17/19 20:15: Bedside Glucose (Misc Panel) 163H 12/18/19 02:03: Clostridium difficile [id number] PRESUMPTIVE NEGATIVE, Clostridium difficile Toxin (PCR) NEGATIVE 12/18/19 02:27: Bedside Glucose (Misc Panel) 132H 12/18/19 05:39: Immature Granulocyte % (Auto) 1.3, Neutrophils (%) (Auto) 83.6H, Lymphocytes (%) (Auto) 8.0L, Monocytes (%) (Auto) 6.4H, Eosinophils (%) (Auto) 0.5, Basophils (%) (Auto) 0.2, Neutrophils # (Auto) 10.6H, Lymphocytes # (Auto) 1.0L, Monocytes # (Auto) 0.8, Eosinophils # (Auto) 0.1, Basophils # (Auto) 0.0, Nucleated Red Blood Cells % (auto) 0.0, Anion Gap 7L, Glomerular Filtration Rate 9.8L, Calcium Level 8.4L, Random Vancomycin Level 18.9 12/18/19 10:35: Bedside Glucose (Misc Panel) 121H 12/18/19 12:02: Bedside Glucose (Misc Panel) 111H CBC/BMP Laboratory Tests 12/18/19 05:39 Microbiology Microbiology 12/16/19 Urine Culture - Final, Complete 12/16/19 Blood Culture - Preliminary, Resulted No growth after 24 hours . All specim... 12/16/19 Blood Culture - Preliminary, Resulted No Growth after 48 hours. All Specime... PRERNA LYNN MD Dec 18, 2019 13:53
[2019-12-18] MEDS: LOPERAMIDE 2 MG CAPLET PO PRN (17:58)
--- NOTE | 2019-12-18 20:31 | IPN ---
DATE: 12/18/2019 SUBJECTIVE: Patient was seen and examined at the bedside today morning. He is afebrile and hemodynamically stable. His intravenous (IV) fluids were stopped yesterday. He reports mild persistent pain in the right lower extremity. He continues to be on IV antibiotics and today patient is supposed to be dialyzed. OBJECTIVE: VITAL SIGNS: Temperature is 98.7 degrees Fahrenheit, blood pressure is 124/84, pulse is 83, respiratory of 18, saturating 97% on room air. INTAKE AND OUTPUT: Urine output recorded so far since overnight is 175 mL. Weight in the bed scale is not available. PHYSICAL EXAMINATION: GENERAL: Patient is awake, alert, oriented times, laying in bed in no apparent distress. HEAD AND NECK EXAM: Extraocular muscles intact. Pupils equally round and reactive to light. Mucous membranes are moist. Neck is supple. There is no jugular venous distention (JVD). He has a left internal jugular (IJ) tunneled hemodialysis catheter. CARDIOVASCULAR: S1, S2. Regular rate. 2+ edema of the bilateral lower extremities. RESPIRATORY: Chest is clear to auscultation bilaterally. Bilateral equal air entry. No rales or rhonchi. ABDOMEN: Soft. Positive bowel sounds. No organomegaly. GENITOURINARY: Bladder is not palpable. MUSCULOSKELETAL: Patient has cellulitis of the right lower extremity and it is tender to palpation and edema is getting better. Both lower extremities have swelling, 2+, up to both thighs as well. CENTRAL NERVOUS SYSTEM (GRAB JACK MAN): No focal deficit. Power is 5/5 in bilateral upper extremities. LABORATORY REVIEW: Complete blood count (CBC) showed a WBC of 12.6, hemoglobin is 8.9, platelets are 130. Basic metabolic panel (BMP) showed sodium 133, potassium 4.2, chloride 100, bicarbonate 26, BUN 72, creatinine is 6.4, calcium is 8.4. MICROBIOLOGY: Blood cultures are negative so far. CURRENT INPATIENT MEDICATIONS: Patient's medications were all reviewed by myself. She continues to be on IV vancomycin and IV Zosyn. No other change in the medications today as compared with yesterday. ASSESSMENT AND PLAN: 1. End-stage renal disease. Patient's regular dialysis days are Saturday, Saturday, Saturday. He missed his dialysis on Saturday. Today he will be dialyzed according to his regular schedule. Ultrafiltration goal will be around 2 liters as tolerated by his blood pressure. 2. Sepsis secondary to right lower extremity cellulitis. Patient's sepsis is resolving now. Leukocytosis is getting better. He is not requiring any IV fluids. He continues to be on broad-spectrum antibiotics including vancomycin and Zosyn. Culture results are still negative and edema is getting better. 3. Diabetes mellitus type 2. Patient is insulin dependent. She is currently on insulin sliding scale and Levemir. 4. Hypertension with end-stage renal disease. Continue current dose of Coreg and amlodipine. Coreg dose is 37.5 mg by mouth twice a day and amlodipine 5 mg by mouth daily. 5. Anemia secondary to end-stage renal disease and iron deficiency. Patient is currently getting Aranesp and he will also get Venofer with dialysis. 6. Paroxysmal atrial flutter. Heart rate is controlled. Continue flecainide 50 mg by mouth twice a day.
[2019-12-18] MEDS: ADVAIR HFA 230/21MCG INHALER INH PRN (20:37)
[2019-12-18] MEDS ORDERED: LEVEMIR (INSULIN DETEMIR) 1 UNITS/0.01ML SC ONE (21:30)
[2019-12-18 22:00] VITALS: BP 127/69
[2019-12-19] MEDS: ONDANSETRON 4MG/2ML VIAL (J2405) IV SCH ×4 (04:45→22:25)
[2019-12-19] MEDS: PIPERACILLIN/TAZOBACTAM SOD 2.25 GM in D5W MINI-BAG PLUS 50 ML IV SCH ×3 (05:22→22:25)
[2019-12-19 06:00] VITALS: BP 137/67
[2019-12-19 06:29] LABS: BASO % 0.3 % (0.0-1.0); EOS # 0.1 10^3/uL (0.0-0.5); EOS % 1.1 % (0.0-3.0); HEMOGLOBIN 8.5 g/dl (13.5-17.5); LYMPH # 1.1 10^3/uL (1.5-5.0); LYMPH % 13.7 % (24.0-44.0); MEAN CORPUSCULAR HEMOGLOBIN 27.5 pg (27.0-33.0); MEAN CORPUSCULAR HGB CONC 30.4 g/dl (32.0-36.5); MEAN CORPUSCULAR VOLUME 90.6 fl (80.0-96.0); MONO # 0.6 10^3/uL (0.0-0.8); MONO % 7.7 % (0.0-5.0); NEUTROPHILS # 5.9 10^3/uL (1.5-8.5); NEUTROPHILS % 74.6 % (36.0-66.0); PLATELET COUNT, AUTOMATED 129 10^3/uL (150-450); RED BLOOD COUNT 3.09 10^6/uL (4.30-6.10); WHITE BLOOD COUNT 7.9 10^3/uL (4.0-10.0)
[2019-12-19 06:45] LABS: CALCIUM LEVEL 8.6 MG/DL (8.5-10.1); CREATININE FOR GFR 4.58 MG/DL (0.70-1.30); GLOMERULAR FILTRATION RATE 14.4 (>56); POTASSIUM SERUM 3.6 MEQ/L (3.5-5.1)
[2019-12-19] MEDS: ADVAIR HFA 230/21MCG INHALER INH PRN ×2 (07:24→19:23)
--- NOTE | 2019-12-19 08:36 | IPNPDOC ---
Subjective Date Seen The patient was seen on 12/19/19. Subjective Chief Complaint/HPI Diarrhea is a little better today, no abdominal pain , no nausea or vomting. No fever or chills. Objective Physical Examination General Exam: Positive: Alert, Cooperative, No Acute Distress Eye Exam: Positive: PERRLA, Conjunctiva & lids normal, EOMI; Negative: Sclera icteric ENT Exam: Positive: Atraumatic, Mucous membr. moist/pink, Pharynx Normal Neck Exam: Positive: Supple; Negative: JVD, thyromegaly Chest Exam: Positive: Rhonchi, Wheezing Heart Exam: Positive: Rate Normal, Regular Rhythm, Normal S1, Normal S2, Murmurs (systolic murmur); Negative: Rubs Telemetry: Positive: No significant arrhythmia Abdomen Exam: Positive: Normal bowel sounds, Soft, Other (obese); Negative: Tenderness, Hepatospenomegaly Extremity Exam: Positive: Edema, Tenderness, Swelling Skin Exam: Positive: Breakdown, Other skin issue (lymphedema, chronic bilateral venous stasis changes with stasis ulcers. ) Neuro Exam: Positive: Normal Speech, Strength at 5/5 X4 ext, Normal Tone Psych Exam: Positive: Mental status NL, Mood NL, Oriented x 3 Assessment /Plan Assessment 54 year old male with PMH is significant for ESRD on HD through left subclaviun permcath, DM with neuropathy and multiple other problems, bilateral lower extr emety chronic wounds with h/o tibia and fibula osteomyelitis came to the ED with complaints of weakness, dizziness , nausea, vomiting along with severe pain and soreness of his right leg so that he could not walk on it . Before yesterday he was walking no no issues. in the ED he was febrile to tmax of 103.1, his wbc elevated, his lactate was elevated. He complained of 8/10 pain in his right leg, throbbing and aching and sometimes sharp extending from the thigh to the foot. there was also new discharge from the chronic ulcers and he said they broke open yesterday. He is admitted for Cellulitis of his right leg with possible lymphangitis and to rule out Perm cath infection. Cellutitis , lymphangitis of right leg with Sepsis will continue on vanco and Zosyn blood cultures in progress. Negative till date. Nausea and vomiting zofran Diarrhea possibly antibiotic related C dif negative will give imodium. Rule out perm cath infection, tunnel is not tender culture negative till date. Lactic acidosis due to sepsis will give small amount of fluid ESRD nephrology consulted for maintenance dialysis Anemia of chronic disease and secondary hyperthyroidism as per nephrology continue home meds Hypertension with hypertensive heart disease will continue will home meds COreg and amlodipine Diabetes with neuropathy, uncontrolled will give levemir and lispro per sliding scale Paroxysmal a flutter continue Flecainide. Chronic asthma with possibly pulmonary hypertension will continue with advair and albuterol prn Hyperuricemia continue allopurinol Chronic diastolic CHF fluid to be managed by HD. Morbid obesity complicating care. Dispo: awaiting completion of IV antibiotics. Plan/VTE VTE Prophylaxis Ordered?: Yes VS, I&O, 24H, Fishbone Vital Signs/I&O Vital Signs Date Time Temp Pulse Resp B/P (MAP) Pulse Ox O2 Delivery O2 Flow Rate FiO2 12/19/19 06:00 98.2 84 18 137/67 (90) 97 Nasal Cannula 2.0 I&O- Last 24 Hours up to 6 AM 12/19/19 06:00 Intake Total 1460 ml Output Total 2325 ml Balance -865 ml Laboratory Data 24H LABS Laboratory Tests 2 12/18/19 10:35: Bedside Glucose (Misc Panel) 121H 12/18/19 12:02: Bedside Glucose (Misc Panel) 111H 12/18/19 17:43: Bedside Glucose (Misc Panel) 77 12/18/19 20:34: Bedside Glucose (Misc Panel) 99 12/19/19 05:45: Immature Granulocyte % (Auto) 2.6, Neutrophils (%) (Auto) 74.6H, Lymphocytes (%) (Auto) 13.7L, Monocytes (%) (Auto) 7.7H, Eosinophils (%) (Auto) 1.1, Basophils (%) (Auto) 0.3, Neutrophils # (Auto) 5.9, Lymphocytes # (Auto) 1.1L, Monocytes # (Auto) 0.6, Eosinophils # (Auto) 0.1, Basophils # (Auto) 0.0, Nucleated Red Blood Cells % (auto) 0.0, Anion Gap 6L, Glomerular Filtration Rate 14.4L, Calcium Level 8.6 CBC/BMP Laboratory Tests 12/19/19 05:45 Microbiology Microbiology 12/16/19 Urine Culture - Final, Complete 12/16/19 Blood Culture - Preliminary, Resulted No Growth after 48 hours. All Specime... 12/16/19 Blood Culture - Preliminary, Resulted No Growth after 48 hours. All Specime... PRERNA LYNN MD Dec 19, 2019 08:36
[2019-12-19] MEDS: FLECAINIDE 50MG TABLET PO SCH ×2 (09:20→21:51)
[2019-12-19] MEDS: HEPARIN SOD (PORCINE) 5000 UNITS/ML VIAL (J1644 PER 1000UNITS) SC SCH ×2 (09:20→21:52)
[2019-12-19] MEDS: CARVedilol 12.5 MG TAB PO SCH ×2 (09:21→21:51)
[2019-12-19] MEDS: amLODIPine 5 MG TAB PO SCH (09:21)
[2019-12-19] MEDS: LEVEMIR (INSULIN DETEMIR) 1 UNITS/0.01ML SC SCH ×2 (09:23→21:00)
[2019-12-19] MEDS: HumaLOG INSULIN (NovoLOG) PER UNIT SC SCH ×4 (09:23→20:45)
[2019-12-19] MEDS ORDERED: IRON SUCROSE 100MG 5ML VIAL (J1756 PER 1MG) IV SCH (11:00)
[2019-12-19] MEDS ORDERED: DARBEPOETIN 100 MCG/0.5 ML *DIALYSIS* SYRINGE (J0882) IV SCH (11:00)
[2019-12-19] MEDS: LOPERAMIDE 2 MG CAPLET PO PRN ×2 (12:01→23:34)
--- NOTE | 2019-12-19 13:27 | REP ---
AP PORTABLE CHEST: 12/19/2019. Comparison: 12/16/2019, 09/15/2019; CT 04/13/2015. Clinical history: Dyspnea, rule out effusion. Findings: Portable AP seated chest shows a left-sided dialysis catheter terminating in the SVC near the right atrium. Tubing attached to the two limbs projects over the left lateral chest wall, limiting its evaluation. The left CP angle appears sharply defined. There is some hazy density along the left lateral lower chest wall of the lung talavera which may reflect superimposed chest wall tissues or some subpleural fluid. The diaphragm is very sharply defined and therefore I do not suspect any significant posterior effusion. The right lung was well inflated. There is some mild venous hypertension without pulmonary edema. Heart size not enlarged for AP portable seated technique. The aorta is normal. Airway intact. Bones without acute findings. Impression: 1. Indwelling left-sided dialysis catheter with tip in the SVC near the right atrium. Tubing attached to its two limbs limits evaluation of the middle one-third of the lateral chest wall. 2. The lower one-third of the left chest wall shows hazy density that may be superimposed chest wall soft tissues, but I could not entirely exclude some subpleural fluid. However, the left CP angle is sharply defined and the diaphragm is well defined throughout on that left side. So if there is fluid present, it would be loculated. 3. Right lung base clear. There is some PVH without pulmonary edema. No cardiomegaly. Electronically Signed by Vladislav Valerio MD 12/19/2019 08:01 P
[2019-12-19 14:00] VITALS: BP 146/73
[2019-12-19] MEDS: **VANCO AFTER HD** MISC XX SCH (15:05)
[2019-12-19] MEDS ORDERED: LEVEMIR (INSULIN DETEMIR) 1 UNITS/0.01ML SC ONE (21:00)
[2019-12-19 22:00] VITALS: BP 141/75
[2019-12-20] MEDS: ONDANSETRON 4MG/2ML VIAL (J2405) IV SCH ×4 (04:45→22:29)
[2019-12-20] MEDS: PIPERACILLIN/TAZOBACTAM SOD 2.25 GM in D5W MINI-BAG PLUS 50 ML IV SCH ×3 (05:01→21:26)
[2019-12-20 06:00] VITALS: BP 143/68
[2019-12-20] MEDS: LOPERAMIDE 2 MG CAPLET PO PRN ×2 (06:20→10:30)
[2019-12-20 06:43] LABS: HEMATOCRIT 31.1 % (42.0-52.0); HEMOGLOBIN 9.4 g/dl (13.5-17.5); MEAN CORPUSCULAR HEMOGLOBIN 27.6 pg (27.0-33.0); MEAN CORPUSCULAR HGB CONC 30.2 g/dl (32.0-36.5); MEAN CORPUSCULAR VOLUME 91.2 fl (80.0-96.0); PLATELET COUNT, AUTOMATED 160 10^3/uL (150-450); RED BLOOD COUNT 3.41 10^6/uL (4.30-6.10); WHITE BLOOD COUNT 8.2 10^3/uL (4.0-10.0)
[2019-12-20 07:08] LABS: CALCIUM LEVEL 8.6 MG/DL (8.5-10.1); CREATININE FOR GFR 5.82 MG/DL (0.70-1.30); GLOMERULAR FILTRATION RATE 10.9 (>56)
[2019-12-20] MEDS: ADVAIR HFA 230/21MCG INHALER INH PRN ×2 (07:39→20:01)
[2019-12-20 07:42] LABS: ATYPICAL LYMPH 1 % (0-5); LYMPHOCYTES 22 % (16-44); METAMYELOCYTES 2 % (0-0); MONOCYTES 4 % (0-5); MYELOCYTES 1 % (0-0); NEUTROPHILS 68 % (28-66); PLATELET ESTIMATE NORMAL (NORMAL)
[2019-12-20 07:43] LABS: ANISOCYTOSIS 1+
--- NOTE | 2019-12-20 08:55 | IPN ---
DATE OF SERVICE: 12/19/2019 SUBJECTIVE: Patient was seen and examined at the bedside today morning. He is afebrile, hemodynamically stable. He was dialyzed yesterday; 2 liters of fluid was removed. He continues to be on antibiotics. He does report some mild shortness of breath. Otherwise, he denies any active complaints. OBJECTIVE: Vital Signs: Temperature is 98.7 degrees Fahrenheit, blood pressure 146/73, pulse is 70, respiratory rate of 18, saturating 96% on nasal cannula. Intake and Output: There is no urine output recorded today. Ultrafiltration with hemodialysis was 2 liters. Weight in the bed scale is not available. PHYSICAL EXAMINATION: General: Patient is awake, alert, oriented times three, sitting up in the sofa, in no apparent distress. Head and Neck Exam: Extraocular muscles intact. Pupils equally round and reactive to light. Mucous membranes are moist. Neck is supple. There is no jugular venous distention (JVD). He has a left internal jugular (IJ) tunneled hemodialysis catheter. Cardiovascular: S1, S2, regular rate. 3+ edema of the right lower extremity and 2+ edema of the left lower extremity. Respiratory: Decreased breath sounds bilaterally at the bases. No active rales or rhonchi. Abdomen: Soft. Obese. Positive bowel sounds. Nontender. Musculoskeletal: Patient has erythema of the right lower extremity with edema up to the right knee and has edema of the left lower extremity as well. Central Nervous System (GOLF BALL COVER TREATER): No focal deficit. Power is 5/5 in bilateral upper extremities. LAB REVIEW: CBC showed WBC 7.9, hemoglobin 8.5, platelets are 129. BMP shows sodium 139, potassium 3.6, chloride 105, bicarbonate 28, BUN 36, creatinine is 4.5. IMAGING: A portable chest x-ray was done that showed lower one-third of the left chest wall showed a hazy density. However, left costophrenic (CP) angle is sharp. Right lung base is clear. CURRENT INPATIENT MEDICATIONS: The patient's medications were all reviewed by myself. He continues to be on IV vancomycin and Zosyn. No other change in the medications today as compared with yesterday. ASSESSMENT AND PLAN: 1. End-stage renal disease. Patient's regular dialysis days are Saturday, Saturday, Saturday. He was dialyzed yesterday. Next hemodialysis will be on Saturday. 2. Right lower extremity cellulitis. Patient continues to be on vancomycin and Zosyn. Cellulitis is improving. Cultures are still negative so far. 3. Diabetes mellitus, type 2. Continue insulin sliding scale and Levemir. 4. Hypertension with end-stage renal disease. Continue Coreg and amlodipine. 5. Anemia secondary to end-stage renal disease and iron deficiency. Continue current dose of Aranesp and Venofer with dialysis. 6. Bilateral lower extremity edema. Volume status is optimized with dialysis now. Patient needs to be on fluid restriction as well.
[2019-12-20] MEDS: HEPARIN SOD (PORCINE) 5000 UNITS/ML VIAL (J1644 PER 1000UNITS) SC SCH ×2 (10:29→21:25)
[2019-12-20] MEDS: amLODIPine 5 MG TAB PO SCH (10:30)
[2019-12-20] MEDS: FLECAINIDE 50MG TABLET PO SCH ×2 (10:30→21:25)
[2019-12-20] MEDS: CARVedilol 12.5 MG TAB PO SCH ×2 (10:30→21:25)
[2019-12-20] MEDS: LEVEMIR (INSULIN DETEMIR) 1 UNITS/0.01ML SC SCH ×2 (10:31→21:25)
[2019-12-20] MEDS: HumaLOG INSULIN (NovoLOG) PER UNIT SC SCH ×4 (10:31→21:00)
[2019-12-20 14:00] VITALS: BP 161/84
[2019-12-20] MEDS: **VANCO AFTER HD** MISC XX SCH (14:57)
--- NOTE | 2019-12-20 19:06 | IPNPDOC ---
Text Note Date of Service The patient was seen on 12/20/19. NOTE Subjective: No any acute events overnight, patient complains of some mild sydni rtness of breath on exertion. Patient can use to complain of multiple bowel movements with loose stool Patient denies fever, chills, nausea, vomiting, chest pain, palpitations, dysuria Objective: NAD HEENT: PERRLA, EOMI, left internal jugular (IJ) tunneled hemodialysis catheter. Cardiovascular: S1, S2, regular rate. 3+ edema of the right lower extremity and 2+ edema of the left lower extremity. Respiratory: Diminished lung sounds bilaterally Abdomen: Nontender, nondistended Musculoskeletal: Patient has erythema of the right lower extremity with edema up to the right knee and has edema of the left lower extremity Central Nervous System (RESIDENTIAL SALES CONSULTANT): No focal deficit. Moves all 4 limbs Assessment and plan Patient is 54 years old male with past medical history significant for end-stage renal diseases on dialysis, diabetes with neuropathy, history of osteomyelitis of lower extremities was admitted to the hospital with sepsis secondary to right leg cellulitis. Sepsis Resolved Secondary to right leg cellulitis with severe lymphangitis Continue current antibiotics with vancomycin and Zosyn Patient has a history of MRSA colonization Will check MRSA screen Blood culture was negative for 72 hours Right leg cellulitis Significantly improved See above PT/OT Leg elevation Diarrhea Most likely secondary to antibiotics C diff negative Continue with Imodium. Rule out perm cath infection, tunnel is not tender culture negative till date ESRD Nephrology team follows him Anemia of chronic disease as per nephrology continue home meds Hypertension Managed by dialysis I increased the dose of amlodipine to 10 mg Diabetes with neuropathy, uncontrolled w Levemir and sliding scale Paroxysmal a flutter Rate controlled continue Flecainide Chronic asthma with possibly pulmonary hypertension will continue with Advair and albuterol prn Hyperuricemia continue allopurinol Chronic diastolic CHF fluid to be managed by HD Morbid obesity complicating care. VS,Fishbone, I+O VS, Fishbone, I+O Laboratory Tests 12/20/19 06:28 Vital Signs Date Time Temp Pulse Resp B/P (MAP) Pulse Ox O2 Delivery O2 Flow Rate FiO2 12/20/19 14:00 98.0 72 20 161/84 (109) 97 Nasal Cannula 2.0 I&O- Last 24 Hours up to 6 AM 12/20/19 06:00 Intake Total 1330 ml Output Total 0 ml Balance 1330 ml DROZHZHIN,CHANCE DO Dec 20, 2019 19:06
[2019-12-20 22:00] VITALS: BP 168/72
[2019-12-21] MEDS: ONDANSETRON 4MG/2ML VIAL (J2405) IV SCH ×4 (04:45→22:45)
[2019-12-21 05:58] LABS: HEMATOCRIT 27.4 % (42.0-52.0); HEMOGLOBIN 8.4 g/dl (13.5-17.5); MEAN CORPUSCULAR HEMOGLOBIN 27.8 pg (27.0-33.0); MEAN CORPUSCULAR HGB CONC 30.7 g/dl (32.0-36.5); MEAN CORPUSCULAR VOLUME 90.7 fl (80.0-96.0); PLATELET COUNT, AUTOMATED 152 10^3/uL (150-450); RED BLOOD COUNT 3.02 10^6/uL (4.30-6.10)
[2019-12-21 06:00] VITALS: BP 144/65
[2019-12-21] MEDS: CLINDAMYCIN 150 MG CAP PO SCH ×3 (06:00→21:06)
[2019-12-21] MEDS: HEPARIN SOD (PORCINE) 5000 UNITS/ML VIAL (J1644 PER 1000UNITS) SC SCH ×2 (06:09→21:07)
[2019-12-21] MEDS: PIPERACILLIN/TAZOBACTAM SOD 2.25 GM in D5W MINI-BAG PLUS 50 ML IV SCH (06:09)
[2019-12-21] MEDS: CARVedilol 12.5 MG TAB PO SCH ×2 (06:10→21:06)
[2019-12-21] MEDS: amLODIPine 10 MG TAB PO SCH (06:10)
[2019-12-21] MEDS: FLECAINIDE 50MG TABLET PO SCH ×2 (06:10→21:07)
[2019-12-21 06:23] LABS: LYMPHOCYTES 13 % (16-44); MONOCYTES 7 % (0-5); NEUTROPHILS 78 % (28-66)
[2019-12-21 06:24] LABS: PLATELET ESTIMATE NORMAL (NORMAL)
[2019-12-21 06:26] LABS: CALCIUM LEVEL 8.2 MG/DL (8.5-10.1); CREATININE FOR GFR 6.76 MG/DL (0.70-1.30); GLOMERULAR FILTRATION RATE 9.2 (>56); POTASSIUM SERUM 4.3 MEQ/L (3.5-5.1); VANCOMYCIN RANDOM 18.4 UG/ML
[2019-12-21] MEDS: ADVAIR HFA 230/21MCG INHALER INH PRN ×2 (08:12→19:46)
[2019-12-21] MEDS: HumaLOG INSULIN (NovoLOG) PER UNIT SC SCH ×4 (08:31→21:00)
[2019-12-21] MEDS: LEVEMIR (INSULIN DETEMIR) 1 UNITS/0.01ML SC SCH ×2 (08:31→21:07)
[2019-12-21] MEDS ORDERED: HEPARIN 1,000 UNITS/ML 10ML VIAL (FOR RADIOLOGY& DIALYSIS ONLY)(J1644-10) IV ONE (12:00)
[2019-12-21] MEDS ORDERED: HEPARIN 1,000 UNITS/ML 10ML VIAL (FOR RADIOLOGY& DIALYSIS ONLY)(J1644-10) XX ONE (12:00)
[2019-12-21 14:00] VITALS: BP 155/77
--- NOTE | 2019-12-21 17:02 | IPNPDOC ---
Text Note Date of Service The patient was seen on 12/21/19. NOTE Subjective: No any acute events overnight. Patient denies fever, chills, nausea, vomiting, chest pain, palpitations, dysuria Objective: NAD HEENT: PERRLA, EOMI, left internal jugular (IJ) tunneled hemodialysis catheter. Cardiovascular: S1, S2, regular rate. 3+ edema of the right lower extremity and 2+ edema of the left lower extremity. Respiratory: Diminished lung sounds bilaterally Abdomen: Nontender, nondistended Musculoskeletal: Patient has erythema of the right lower extremity with edema up to the right knee and has edema of the left lower extremity Central Nervous System (HOMEMAKER COMPANION): No focal deficit. Moves all 4 limbs Assessment and plan Patient is 54 years old male with past medical history significant for end-stage renal diseases on dialysis, diabetes with neuropathy, history of osteomyelitis of lower extremities was admitted to the hospital with sepsis secondary to right leg cellulitis. Sepsis Resolved Secondary to right leg cellulitis with severe lymphangitis I DC vancomycin and Zosyn, clindamycin by mouth started Patient has a history of MRSA colonization, current MRSA screen negative Blood culture negative Right leg cellulitis Significantly improved See above PT/OT Leg elevation Diarrhea Most likely secondary to antibiotics C diff negative Continue with Imodium. Rule out perm cath infection, tunnel is not tender culture negative till date ESRD Nephrology team follows him Anemia of chronic disease as per nephrology continue home meds Hypertension Improved Managed by dialysis I increased the dose of amlodipine to 10 mg Diabetes with neuropathy, uncontrolled Improved w Levemir and sliding scale Paroxysmal a flutter Rate controlled continue Flecainide Chronic asthma with possibly pulmonary hypertension will continue with Advair and albuterol prn Hyperuricemia continue allopurinol Chronic diastolic CHF fluid to be managed by HD obesity complicating care. VS,Fishbone, I+O VS, Fishbone, I+O Laboratory Tests 12/21/19 05:39 Vital Signs Date Time Temp Pulse Resp B/P (MAP) Pulse Ox O2 Delivery O2 Flow Rate FiO2 12/21/19 14:00 98.9 67 20 155/77 (103) 97 Room Air 12/21/19 06:00 2.0 I&O- Last 24 Hours up to 6 AM 12/21/19 05:59 Intake Total 1620 ml Balance 1620 ml CHANCE MCCAIN DO Dec 21, 2019 17:02
[2019-12-21 21:06] VITALS: BP 146/79
[2019-12-21] MEDS: LOPERAMIDE 2 MG CAPLET PO PRN (21:12)
--- NOTE | 2019-12-21 21:29 | IPN ---
DATE: 12/20/2019 SUBJECTIVE: Francois is seen and examined this morning sitting out of bed to the recliner. He denies any acute overnight events or complaints. Reports he has been walking to the bathroom. Denies shortness of breath. Continues on antibiotics for his impressive right lower extremity cellulitis. Vital signs: Temperature 98.0, pulse 72, respiratory rate 20, blood pressure 161/84, saturating 97% on 2 liters nasal cannula. Intake yesterday was 1270, output was not recorded. Weight in the bed scale today was not recorded. General: The patient is seen sitting in the recliner, middle-aged male, obese, awake, alert, oriented in no apparent distress. Extraocular muscles are intact. Pupils are round and reactive to light. Mucous membranes are moist. Neck is supple. There is no jugular venous distension while he is sitting upright. There is a left tunneled hemodialysis catheter present in the chest wall. Heart sounds are regular, S1, S2. There is 3+ edema of the right lower extremity and 2+ edema of the left lower extremity. Respiratory: There are diminished breath sounds at both bases. No active rales or rhonchi. Abdomen is obese, soft and nontender. There are bowel sounds. Musculoskeletal: There is erythema of the right lower extremity that stops a few inches below the right knee, and there are dressings present and significant swelling, 3+ on the right and 2+ on the left. Neurologic: He is oriented times three. No focal deficit. At baseline mentation. LABS: White count 8.2, hemoglobin 9.4, platelet 160, sodium 136, potassium 4.0, BUN 50. INPATIENT MEDICATIONS: Reviewed by myself. His insulin was adjusted by the primary team. Remainder of medications are unchanged from prior. PROBLEMS: 1. End-stage renal disease, on hemodialysis on Saturday, Saturday, Saturday. He continues on his usual maintenance schedule. He has not followed up outpatient for fistula creation (dialyzed via Perma-Cath). Next treatment will be on Saturday with goal fluid removal of 2-3 liters as tolerated by hemodynamics. 2. Right lower extremity cellulitis. His white count has normalized. He is afebrile. His vancomycin random level 2 days ago was appropriate, and he continues on renally dosed vancomycin and Zosyn managed by the primary team. 3. Anemia related to chronic renal failure, inflammatory state and iron deficiency. He is receiving Venofer and Aranesp with dialysis. Hemoglobin is improving slowly and up to 9.4. 4. Hypertension. Systolic is ranging from 130s to 140s and no change is being made to the current regimen of amlodipine and carvedilol. 5. Diastolic congestive heart failure. Echocardiogram from August 2019 reviewed. Preserved left ventricular ejection fraction with grade 2 diastolic dysfunction. The patient is volume overloaded. We will remove 2-3 liters with his next dialysis treatment, and he is on a 1500 mL fluid restriction.
[2019-12-21 22:00] VITALS: BP 146/79
[2019-12-22] MEDS: ONDANSETRON 4MG/2ML VIAL (J2405) IV SCH ×3 (04:42→10:33)
[2019-12-22] MEDS: CLINDAMYCIN 150 MG CAP PO SCH ×2 (05:47→13:53)
[2019-12-22 06:00] VITALS: BP 137/81
[2019-12-22 06:47] LABS: HEMATOCRIT 28.7 % (42.0-52.0); HEMOGLOBIN 8.8 g/dl (13.5-17.5); MEAN CORPUSCULAR HEMOGLOBIN 28.2 pg (27.0-33.0); MEAN CORPUSCULAR HGB CONC 30.7 g/dl (32.0-36.5); PLATELET COUNT, AUTOMATED 191 10^3/uL (150-450); RED BLOOD COUNT 3.12 10^6/uL (4.30-6.10); WHITE BLOOD COUNT 10.1 10^3/uL (4.0-10.0)
[2019-12-22 07:11] LABS: CALCIUM LEVEL 8.5 MG/DL (8.5-10.1); POTASSIUM SERUM 4.3 MEQ/L (3.5-5.1)
[2019-12-22 07:13] LABS: EOSINOPHILS 1 % (0-3); LYMPHOCYTES 23 % (16-44); METAMYELOCYTES 7 % (0-0); MONOCYTES 6 % (0-5); MYELOCYTES 4 % (0-0); NEUTROPHILS 57 % (28-66)
[2019-12-22 07:15] LABS: PLATELET ESTIMATE NORMAL (NORMAL)
[2019-12-22] MEDS: HumaLOG INSULIN (NovoLOG) PER UNIT SC SCH ×2 (07:30→12:27)
[2019-12-22] MEDS: ADVAIR HFA 230/21MCG INHALER INH PRN (07:40)
[2019-12-22 08:00] VITALS: BP 152/69
[2019-12-22] MEDS: CARVedilol 12.5 MG TAB PO SCH (10:29)
[2019-12-22] MEDS: FLECAINIDE 50MG TABLET PO SCH (10:29)
[2019-12-22] MEDS: amLODIPine 10 MG TAB PO SCH (10:29)
[2019-12-22] MEDS: HEPARIN SOD (PORCINE) 5000 UNITS/ML VIAL (J1644 PER 1000UNITS) SC SCH (10:30)
[2019-12-22] MEDS: LEVEMIR (INSULIN DETEMIR) 1 UNITS/0.01ML SC SCH (10:30)
--- NOTE | 2019-12-22 10:54 | IPN ---
DATE OF SERVICE: 12/21/2019 SUBJECTIVE: Jarocho is seen and examined this morning in the hemodialysis unit receiving his treatment. He denies any overnight events or complaints. He remains afebrile, tolerating dialysis without issues. Reports he is still having frequent bowel movements. Temperature 97.1, pulse 17, respiratory rate 18, blood pressure 144/65, saturating 97% on 2 liters nasal cannula. Intake yesterday was 1620. Weight on the bed scale today is not recorded. General: The patient is seen in the hemodialysis unit receiving his treatment. Obese male awake, alert and oriented in no apparent distress. Extraocular muscles are intact. Pupils are equal, round and reactive to light. There is a tunneled left IJ catheter presently in use. Cardiac: S1, S2 regular rate. There is 3+ edema of the right lower extremity and 2+ edema of the left lower extremity. Respiratory: There are diminished lung sounds bilaterally. He is seen on nasal cannula. There is no accessory muscle use. No tachypnea. Abdomen is soft, obese and nontender. There are bowel sounds. Musculoskeletal: There are dressings on both of his legs. The right lower extremity has erythema and cellulitis, which has been demarcated. The left lower extremity has some fluid blisters as well. Neurologic: He is oriented times three, interactive and conversational, cooperative with physical exam. LABORATORIES: White count 8.0, hemoglobin 8.4, platelets 152, sodium 135, potassium 4.3. INPATIENT MEDICATIONS: His amlodipine was increased to 10 mg daily by the primary team. He was started on oral clindamycin. His vancomycin and Zosyn were discontinued. The remainder of his medications are unchanged prior. PROBLEMS: 1. End-stage renal disease on hemodialysis on a Saturday, Saturday, Saturday schedule. He is volume overloaded, we are removing 2.5 liters today. His electrolytes are acceptable. He continues on a 1500 mL fluid restriction. 2. Right leg cellulitis and lymphangitis status post sepsis. Antibiotics were adjusted by the primary team. He was discontinued off vancomycin and Zosyn and switched over to clindamycin. His blood cultures remain negative. 3. Hypertension. Blood pressures remain variable. Systolic has been ranging from 120s to 160. Primary team already increased amlodipine. We are taking off 2.5 liters with dialysis today. I did not make any changes in the antihypertensive regimen. 4. Anemia of chronic renal failure, iron deficiency and inflammatory state. He is receiving iron and Aranesp. Hemoglobin is suboptimal but stable in the 8s. 5. Chronic diastolic congestive heart failure. He is volume overloaded. We are removing 2.5 liters today. He is advised to follow a 1500 mL fluid restriction.
[2019-12-22] MEDS ORDERED: DOXY-350 PO (11:43)
[2019-12-22] MEDS ORDERED: ANTI2TAB16 PO (11:43)
--- NOTE | 2019-12-22 18:09 | IPN ---
DATE: 12/22/2019 SUBJECTIVE: Francois was seen and examined this morning at the bedside. He was dialyzed yesterday with 2.5 liters of fluid removed. Denied any issues with his hemodialysis treatment. Temperature 98.2, pulse 74, respiratory rate 18, blood pressure 152/69, saturating 95% on room air. Intake yesterday was not fully recorded. Dialysis removed 2500. Weight in the bed scale today is not recorded. GENERAL: The patient is seen sitting out of bed to the recliner, legs elevated, middle-aged male, obese, comfortable, awake, alert, oriented, in no apparent distress. Extraocular muscles are intact. Pupils are equal, round and reactive to light. There is a tunneled left internal jugular (IJ) catheter with dressing. Heart sounds are regular, S1, S2. There is 3+ edema in the right lower extremity and 1+ edema in the left lower extremity. RESPIRATORY: There is symmetric air entry bilaterally, clear to auscultation. Abdomen is soft, obese and nontender. There are bowel sounds. MUSCULOSKELETAL: There are dressings on the right lower extremity. There is erythema and cellulitis of the right lower extremity which has been demarcated. Left lower extremity has 1+ edema and chronic venous stasis. NEUROLOGIC: He is oriented times three, interactive and conversational at baseline mentation. LABORATORY DATA: White count 10.1, hemoglobin 8.8, platelets 191. Sodium 136, potassium 4.3. INPATIENT MEDICATIONS: Reviewed by myself and no change as compared to yesterday. PROBLEMS: 1. End-stage renal disease on hemodialysis on a Saturday, Saturday, Saturday schedule. We removed 2.5 liters yesterday. He continues on a 1500 mL fluid restriction. His electrolytes are acceptable. There is mild hypervolemia. Continue with on three times weekly hemodialysis. 2. Right leg cellulitis. Antibiotics are managed by the primary team. There is some mild increase in white blood cell (WBC) count. He is now on oral clindamycin. 3. Hypertension. Blood pressures are acceptable. No change is being made to the current regimen. 4. Anemia of chronic renal failure, iron deficiency and inflammatory state. Hemoglobin is stable but suboptimal at 8.8. He continues on iron and Aranesp with dialysis. 4. Chronic diastolic congestive heart failure. 2.5 liters were removed with dialysis yesterday. He is on a 1500 mL fluid restriction. Continue with three times weekly hemodialysis.
--- NOTE | 2019-12-22 19:51 | DS.PDOC ---
Discharge Summary General Date of Admission Dec 16, 2019 at 16:28 Date of Discharge 12/22/19 Discharge Summary PROCEDURES PERFORMED DURING STAY: [None]. ADMITTING DIAGNOSES: Sepsis Right leg cellulitis Diarrhea ESRD Anemia of chronic disease Hypertension Diabetes with neuropathy, uncontrolled Paroxysmal a flutter Chronic asthma with possibly pulmonary hypertension Hyperuricemia Chronic diastolic CHF obesity DISCHARGE DIAGNOSES: Sepsis Right leg cellulitis Diarrhea ESRD Anemia of chronic disease Hypertension Diabetes with neuropathy, uncontrolled Paroxysmal a flutter Chronic asthma with possibly pulmonary hypertension Hyperuricemia Chronic diastolic CHF obesity COMPLICATIONS/CHIEF COMPLAINT: Cellulitis,Esrd. HISTORY OF PRESENT ILLNESS:Jarocho Parrish is a 54 year old male with past medical history of end-stage renal disease on hemodialysis q. Saturday, Saturday, Saturday. Last hemodialysis was done on Saturday, he missed his hemodialysis yesterday. He is an insulin dependent diabetic with history of hypertension, chronic bilateral lower extremity edema and ulcerations, and multiple other comorbidities as mentioned below. He presented to the hospital yesterday with the feeling of weakness, dizziness, nausea, decreased appetite, vomiting, severe pain, redness and swelling of the right lower extremity. The patient was found to be febrile with a T-max of 103 degrees Fahrenheit in the emergency room. He was septic with tachycardia, lactic acidosis, leukocytosis and severe 8/10 pain in the right lower extremity along with throbbing pain and cellulitis. He was admitted under the hospitalist service last night with sepsis secondary to right lower extremity cellulitis. He was started on IV fluid hydration and broad-spectrum IV antibiotics. HOSPITAL COURSE: During hospital stay the following issues addressed Patient developed sepsis secondary to right leg cellulitis with severe lymphangitis Patient received treatment with vancomycin and Zosyn, discharged on doxycycline by mouth Patient has a history of MRSA colonization, current MRSA screen negative Blood culture negative Right leg cellulitis Significantly improved on treatment with broad-spectrum antibiotics See above PT/OT Leg elevation Diarrhea Most likely secondary to antibiotics C diff negative Continue with Imodium. DISCHARGE MEDICATIONS: Please see below. ALLERGIES: Please see below. PHYSICAL EXAMINATION ON DISCHARGE: VITAL SIGNS: Please see below. HEENT: PERRLA, EOMI, left internal jugular (IJ) tunneled hemodialysis catheter. Cardiovascular: S1, S2, regular rate. 3+ edema of the right lower extremity and 2+ edema of the left lower extremity. Respiratory: Diminished lung sounds bilaterally Abdomen: Nontender, nondistended Musculoskeletal: Patient has erythema of the right lower extremity with edema up to the right knee and has edema of the left lower extremity Central Nervous System (ELECTRONIC CONTROLS REPAIRER SUPERVISOR): No focal deficit. Moves all 4 limbs LABORATORY DATA: Please see below. IMAGING:Right lower extremity deep vein duplex ultrasound: The deep veins demonstrate normal compression, normal Doppler color flow and normal Doppler waveforms with respiration and augmentation from the popliteal vein to the common femoral vein. There is a hypoechoic nodule in the right groin measuring one point 9 cm short axis, likely an enlarged right inguinal node. Impression: There is no deep vein thrombus. Enlarged right inguinal node. The study is technically difficult because of lower extremity edema and patient body habitus. PROGNOSIS: Favorable ACTIVITY: As tolerated DIET: Cardiac/diabetes DISCHARGE PLAN: Home DISPOSITION: 01 Home, Self-Care. DISCHARGE INSTRUCTIONS: Leg elevation ITEMS TO FOLLOWUP ON ON OUTPATIENT: Follow-up with PCP DISCHARGE CONDITION: Stable TIME SPENT ON DISCHARGE: Greater than 20 minutes. Vital Signs/I&Os Vital Signs Date Time Temp Pulse Resp B/P (MAP) Pulse Ox O2 Delivery O2 Flow Rate FiO2 12/22/19 08:00 98.2 74 18 152/69 (96) 95 Room Air 12/21/19 06:00 2.0 I&O- Last 24 Hours up to 6 AM 12/22/19 06:00 Intake Total 390 ml Output Total 2800 ml Balance -2410 ml Laboratory Data Labs 24H Laboratory Tests 2 12/21/19 20:12: Bedside Glucose (Misc Panel) 188H 12/22/19 06:20: Immature Granulocyte % (Auto) , Nucleated Red Blood Cells % (auto) 0.2H, Neutrophils 57, Band Neutrophils 2, Lymphocytes (Manual) 23, Monocytes (Manual) 6H, Eosinophils (Manual) 1, Metamyelocytes 7H, Myelocytes 4H, Platelet Estimate NORMAL, Anion Gap 7L, Glomerular Filtration Rate 13.0L, Calcium Level 8.5 12/22/19 11:58: Bedside Glucose (Misc Panel) 216H CBC/BMP Laboratory Tests 12/22/19 06:20 FSBS Laboratory Tests Test 12/21/19 20:12 12/22/19 11:58 Range/Units Bedside Glucose (Misc Panel) 188 216 70-105 MG/DL Microbiology Microbiology 12/16/19 Urine Culture - Final, Complete 12/16/19 Blood Culture - Final, Complete NO GROWTH AFTER 5 DAYS 12/16/19 Blood Culture - Final, Complete NO GROWTH AFTER 5 DAYS Discharge Medications Scheduled Allopurinol (Allopurinol) 100 Mg Tablet, 100 MG PO DAILY, (Reported) Amlodipine Besylate (Amlodipine Besylate) 5 Mg Tablet, 5 MG PO DAILY, (Reported) Calcium Acetate (Calcium Acetate) 667 Mg Tablet, 1,334 MG PO WM, (Reported) Carvedilol (Carvedilol) 25 Mg Tablet, 37.5 MG PO BID, (Reported) Doxycycline Monohydrate (Doxycycline) 100 Mg Capsule, 100 MG PO BID Flecainide Acetate (Flecainide Acetate) 50 Mg Tablet, 50 MG PO BID, (Reported) Insulin Aspart (Novolog Flexpen) 100 Unit/Ml Inj, 1 DOSE SC ACHS, (Reported) PER SLIDING SCALE Insulin Detemir (Levemir) 100 Unit/1 Ml Vial, 80 UNITS SC BID, (Reported) Spironolactone (Spironolactone) 25 Mg Tablet, 12.5 MG PO DAILY, (Reported) Torsemide (Torsemide) 20 Mg Tablet, 40 MG PO DAILY, (Reported) Scheduled PRN Albuterol Sulfate (Ventolin Hfa) 108 Mcg/Act Aer, 2 PUFF INH Q4H PRN for SHORTNESS OF BREATH, (Reported) Fluticasone Propion/Salmeterol (Advair Hfa 230-21 Mcg Inhaler) 12 Gm Hfa.aer.ad, 2 PUFF INH BID PRN for SOB/WHEEZING, (Reported) Loperamide HCl (Anti-Diarrheal) 2 Mg Tablet, 2 MG PO ASDIRECTED PRN for DIARRHEA Allergies Coded Allergies: aspirin (Verified Allergy, Unknown, 08/20/19) garlic (Verified Adverse Reaction, Intermediate, syncope, 08/20/19) silver (Verified Adverse Reaction, Intermediate, angulo, 08/20/19) CHANCE MCCAIN DO Dec 22, 2019 19:51
== END 2019-12-22 14:02 | disposition home or self-care (01) | DRG 871 ==
LOC: M ED 11:46 → EDBD 11:46 → M ED INP 16:28 → ENRESERVDT 20:47 → CANRESERV 20:47 → ENRESERVTM 20:47 → ENRESERVDT 21:01 → ENRESERVTM 21:01 → M MSPAV 21:21
PROVIDERS: ADMIT Internal Medicine Nephrology; ATTEND Internal Medicine
PROC: 5A1D70Z Performance of Urinary Filtration, Intermittent, Less than 6 Hours Per Day (ICD-10-PCS; principal; 2019-12-18)
DX: A41.9 Sepsis, unspecified organism (principal); N18.6 End stage renal disease; E11.10 Type 2 diabetes mellitus with ketoacidosis without coma; L03.115 Cellulitis of right lower limb; I48.92 Unspecified atrial flutter; I50.32 Chronic diastolic (congestive) heart failure; I13.2 Hypertensive heart and chronic kidney disease with heart failure and with stage 5 chronic kidney disease, or end stage renal disease; N25.81 Secondary hyperparathyroidism of renal origin; I25.2 Old myocardial infarction; Z99.2 Dependence on renal dialysis; E11.42 Type 2 diabetes mellitus with diabetic polyneuropathy; Z95.828 Presence of other vascular implants and grafts; Z79.4 Long term (current) use of insulin; Z79.899 Other long term (current) drug therapy; Z88.6 Allergy status to analgesic agent; Z91.018 Allergy to other foods; Z91.048 Other nonmedicinal substance allergy status; E11.65 Type 2 diabetes mellitus with hyperglycemia; J45.909 Unspecified asthma, uncomplicated; E66.01 Morbid (severe) obesity due to excess calories; Z68.33 Body mass index [BMI] 33.0-33.9, adult; E78.5 Hyperlipidemia, unspecified; I27.20 Pulmonary hypertension, unspecified; Z95.1 Presence of aortocoronary bypass graft; Z90.49 Acquired absence of other specified parts of digestive tract; Z91.19 Patient's noncompliance with other medical treatment and regimen; I87.8 Other specified disorders of veins; D63.1 Anemia in chronic kidney disease; E79.0 Hyperuricemia without signs of inflammatory arthritis and tophaceous disease; R19.7 Diarrhea, unspecified; E11.51 Type 2 diabetes mellitus with diabetic peripheral angiopathy without gangrene; E11.22 Type 2 diabetes mellitus with diabetic chronic kidney disease

== ENCOUNTER → 2020-02-18 | Outpatient (CLI) | payer MEDICARE, MEDICAID ==
[~2020-02-18] MED LIST changes: +ALLO100T PO; +ANTI2TAB16 PO; +DOXY-350 PO
--- NOTE | 2020-02-18 15:15 | REP ---
BILATERAL UPPER EXTREMITY DUPLEX DOPPLER VENOUS AND ARTERIAL ULTRASOUND FOR AV FISTULA MAPPING: Real-time ultrasound evaluation and duplex Doppler interrogation of bilateral upper extremity deep venous and arterial systems is performed for AV fistula mapping. There is small nonocclusive thrombus in the right basilic vein at the level of the mid humerus. Otherwise, no deep vein thrombosis is seen of the bilateral upper extremity deep venous systems. On the right the basilic vein measures 4 mm at the upper humerus, 3 mm at the lower humerus and 1 mm throughout the forearm. Median cubital vein measures 3 mm. Right cephalic vein measure 1 mm throughout the level of the humerus and 2 mm throughout the forearm. Right upper extremity arterial structures demonstrate normal flow velocities with triphasic waveforms. Right axillary artery measures 7 mm, brachial artery 4 mm, radial artery 3 mm proximally and 2 mm distally and ulnar artery 5 mm proximally and 2 mm distally. On the left, the basilic vein is not visualized. The cephalic vein measures 2 mm at the upper humerus, 1 mm at the lower humerus , 2 mm in the upper forearm and 1 mm in the lower forearm and wrist. The median cubital vein is not visualized. The left upper extremity arterial structure demonstrate normal flow velocities with biphasic and triphasic waveforms. Left axillary artery measures 8 mm, brachial artery 3 mm, radial artery 3 mm proximally and 2 mm distally and ulnar artery 2 mm. Electronically Signed by Jayden Cox MD 02/18/2020 04:59 P
== END ==
LOC: M RAD 11:51
PROVIDERS: ATTEND Surgery Vascular Surgery
DX: N18.6 End stage renal disease (principal); I82.611 Acute embolism and thrombosis of superficial veins of right upper extremity

== ENCOUNTER → 2020-03-09 | Outpatient (CLI) | payer MEDICARE, MEDICAID ==
[~2020-03-09] MED LIST changes: +VITA-243 PO; -VITA500T PO
== END ==
LOC: M LABSMTC 10:37
PROVIDERS: ATTEND Family Medicine
DX: Z11.59 Encounter for screening for other viral diseases (principal); Z20.828 Contact with and (suspected) exposure to other viral communicable diseases

== ENCOUNTER 2020-04-15 17:04 | Inpatient (IN) | payer MEDICARE, MEDICAID ==
[~2020-04-15] VITALS: Ht 193 cm; Wt 123.3 kg
[2020-04-15] MEDS: NS 1,000 ML IV SCH ×2 (18:10→20:06)
[2020-04-15 18:21] LABS: BASO % 0.1 % (0.0-1.0); EOS % 0.3 % (0.0-3.0); HEMATOCRIT 31.7 % (42.0-52.0); LYMPH # 1.1 10^3/uL (1.5-5.0); LYMPH % 7.3 % (24.0-44.0); MEAN CORPUSCULAR HEMOGLOBIN 28.7 pg (27.0-33.0); MEAN CORPUSCULAR HGB CONC 31.5 g/dl (32.0-36.5); MEAN CORPUSCULAR VOLUME 90.8 fl (80.0-96.0); MONO # 1.2 10^3/uL (0.0-0.8); MONO % 7.9 % (0.0-5.0); NEUTROPHILS # 12.4 10^3/uL (1.5-8.5); NEUTROPHILS % 83.4 % (36.0-66.0); PLATELET COUNT, AUTOMATED 221 10^3/uL (150-450); RED BLOOD COUNT 3.49 10^6/uL (4.30-6.10); WHITE BLOOD COUNT 14.9 10^3/uL (4.0-10.0)
[2020-04-15 18:32] LABS: ALBUMIN 2.5 GM/DL (3.2-5.2); BILIRUBIN,DIRECT 0.2 MG/DL (0.0-0.2); BILIRUBIN,TOTAL 0.8 MG/DL (0.2-1.0); CALCIUM LEVEL 8.2 MG/DL (8.5-10.1); CREATININE FOR GFR 3.74 MG/DL (0.70-1.30); GLOMERULAR FILTRATION RATE 18.2 (>56); POTASSIUM SERUM 4.5 MEQ/L (3.5-5.1); TOTAL PROTEIN 7.5 GM/DL (6.4-8.2)
[2020-04-15 18:35] LABS: INR 1.19; PROTHROMBIN TIME 14.8 SECONDS (11.8-14.0)
[2020-04-15] MEDS ORDERED: VELP5CHW PO (18:40)
[2020-04-15 19:02] LABS: C REACTIVE PROTEIN QUANTITATIV 16.2 MG/DL (0.00-0.30)
[2020-04-15 19:36] LABS: ERYTHROCYTE SEDIMENTATION RATE 128 mm/hr (0-20)
[2020-04-15] MEDS ORDERED: cefTRIAXone SOD 1 GM in D5W MINI-BAG PLUS 50 ML IV ONE (20:00)
[2020-04-15] MEDS ORDERED: CARVedilol 6.25 MG TAB PO ONE (20:15)
[2020-04-15] MEDS ORDERED: VITA50005 PO (20:26)
[2020-04-15] MEDS ORDERED: ACETAMINOPHEN TAB 650MG DOSE (2X325MG) PO PRN (21:00)
[2020-04-15] MEDS ORDERED: ADVAIR HFA 230/21MCG INHALER INH PRN (21:00)
[2020-04-15] MEDS ORDERED: GLUCAGON INJ 1MG VIAL SC PRN (21:00)
[2020-04-15] MEDS ORDERED: GLUCOSE 4GM CHEW TABLET PO PRN (21:00)
[2020-04-15] MEDS ORDERED: LOPERAMIDE 2 MG CAPLET PO PRN (21:00)
[2020-04-15] MEDS ORDERED: CARVedilol 12.5 MG TAB PO SCH (21:00)
[2020-04-15] MEDS ORDERED: DEXTROSE 50% 50 ML SYRINGE IV PRN (21:00)
[2020-04-15] MEDS ORDERED: MOM 30ML SUSPENSION UDC PO PRN (21:00)
[2020-04-15] MEDS ORDERED: MAALOX 30 ML SUSP *UDC PO PRN (21:00)
--- NOTE | 2020-04-15 21:19 | HPEPDOC ---
[facility] Medical History & Physical Date of Admission April 15, 2020 Date of Service: April 15, 2020 Attending Physician: Isabel cMkenzie MD History and Physical CHIEF COMPLAINT: right foot wound, dizziness after dialysis HISTORY OF PRESENT ILLNESS: Jarocho Parrish is a 54-year-old male who presented to the emergency room today due to 1 day onset of nausea and vomiting and subsequent dizziness after hemodialysis. He states that he was feeling well yesterday and had a large omelette for dinner. He notes that in the morning when he woke up and ate breakfast, he felt very nauseous and began vomiting up his food. He states he continued to feel nauseous during the day and did not eat much, although he was able to keep down fluids during the day. He attended his regular dialysis session and started to feel dizzy during dialysis. He states he completed his dialysis session, but was noted to have low blood pressure and was subsequently sent to the emergency room. He notes that he does have a wound on his right foot which has been there for a few weeks. He states he has not seen a doctor at this but has been taking care of it at home on his own with the help of his son. He is not sure how he got. He feels overall the wound has been improving. He has not had any fevers or chills. He has had a history of chronic wounds and osteomyelitis in the past. PAST MEDICAL HISTORY: 1. ESRD on hemodialysis MWF 2. Insulin-dependent diabetes mellitus. 3. Chronic Asthma 4. Paroxysmal Atrial flutter 5. Chronic Hypertension 6. Diastolic CHF. 7. CAD, hx of NSTEMI 8. Pulmonary hypertension 9. Peripheral vascular disease status post stent placement in femoral artery 10. History of non healing lower extremity wounds, lower extremity osteomyelitis / Status post left lower extremity wound VAC 11. Chronic venous stasis changes and lymphedema of both his lower extremities. 12. Obesity PAST SURGICAL HISTORY: 1. Tonsillectomy 2. Cholecystectomy 3. Left knee knee surgery. SOCIAL HISTORY: Denies tobacco, alcohol, and illicit drug use. Lives with his son who helps take care of him. FAMILY HISTORY: States his parents had diabetes, HTN. ALLERGIES: Please see below. REVIEW OF SYSTEMS: CONSTITUTIONAL: Denies fevers, chills, night sweats, fatigue, unexpected change in weight. HEENT: Denies change in vision, change in hearing. CARDIOVASCULAR: Denies chest pain, palpitations, shortness of breath, lighth eadedness. RESPIRATORY: Denies dyspnea, cough, wheezing. GASTROINTESTINAL: Endorses nausea, vomiting. Denies abdominal pain, diarrhea, constipation, blood in stool. GENITOURINARY: Denies dysuria, urinary frequency, urinary urgency. SKIN: Endorses wound on the right lateral foot for 2-3 weeks. MUSCULOSKELETAL: Denies joint pain or muscle aches. NEUROLOGICAL: Endorses episode of dizziness. Denies headache, weakness. PSYCHIATRIC: Denies change in mood. HOME MEDICATIONS: Please see below. PHYSICAL EXAMINATION: VITAL SIGNS: See below GENERAL: Alert, comfortable, in no acute distress HEENT: Normocephalic, atraumatic, PERRLA, EOMI, sclerae anicteric moist mucous membranes NECK: Supple, trachea midline, no lymphadenopathy CARDIOVASCULAR: Regular rate and rhythm, normal S1 and S2. No murmurs, rubs, or gallops RESPIRATORY: Clear to auscultation bilaterally with equal air entry bilaterally. No wheezing, rhonchi, or rales. ABDOMEN: Soft, nontender, nondistended, bowel sounds present, obese abdomen. EXTREMITIES: [place] edema in bilateral LE up to the knees SKIN: Hard, dry, scaly skin over bilateral lower extremities. Ulceration at the 5th MTPJ on the later aspect of the foot approximately 3eis0in, stage 3 ulcer with foul smell and purulent yellow drainage. NEUROLOGIC: Alert and oriented 3 to person, place and time. Cranial nerves 2-12 grossly intact. No focal deficits appreciated PSYCHIATRIC: Mood and affect appropriate LABORATORY DATA: See below. IMAGING: - Right foot XR: 1. Bilateral degenerative changes, right greater than left. 2. Suspected ulceration in the subcutaneous tissue overlying the right MTP joint. 3. Bilateral peripheral vascular disease suggesting underlying diabetes. MICROBIOLOGY: Please see below. ASSESSMENT: 54-year-old male who presented with one day of nausea/vomiting and dizziness after HD, admitted for worsening right foot ulcer PLAN: 1. Stage 3 right foot ulcer - Elevated WBC, ESR, and CRP. XR does not show signs of osteomyelitis - Wound culture and blood cultures x2 pending - Broad spectrum abx with IV vancomycin and meropenem, MRSA screen ordered - Day team consider consulting podiatry for debridement - Wound care daily 2. Nausea and vomiting. Improved, continue with distant carbohydrate diet as tolerated. PRN Zofran if nausea returns. 3. Hypertension, with hypotensive episode today -transient hypotension after dialysis today has resolved. - continue home carvedilol, torsemide 4. Diabetes mellitus Consistent carbohydrate diet, hypoglycemic protocol -levemir 40 units BID, SSI per protocol achs. 5. ESRD on HD MWF Completed dialysis today. -Continue home velphoro -Consulted nephrology for dialysis while inpatient 6. Anemia of chronic disease, likely ESRD H/H improved from baseline, monitor CBC daily. 7. Chronic Asthma Continue home inhalers, no evidence of acute exacerbation 6. Diastolic CHF - continue home carvedilol, torsemide 8. Paroxysmal atrial flutter - currently in sinus rhythm, not on chronic anticoagulation - continue home carvedilol DVT prophylaxis: sc heparin DISPOSITION: admitted inpatient to med/surg Vital Signs Vital Signs Date Time Temp Pulse Resp B/P (MAP) Pulse Ox O2 Delivery O2 Flow Rate FiO2 04/15/20 20:51 80 142/73 04/15/20 20:45 98 04/15/20 19:04 20 Room Air 04/15/20 17:23 99.4 Laboratory Data Labs 24H Laboratory Tests 2 04/15/20 17:49: Immature Granulocyte % (Auto) 1.0, Neutrophils (%) (Auto) 83.4H, Lymphocytes (%) (Auto) 7.3L, Monocytes (%) (Auto) 7.9H, Eosinophils (%) (Auto) 0.3, Basophils (%) (Auto) 0.1, Neutrophils # (Auto) 12.4H, Lymphocytes # (Auto) 1.1L, Monocytes # (Auto) 1.2H, Eosinophils # (Auto) 0.0, Basophils # (Auto) 0.0, Nucleated Red Blood Cells % (auto) 0.0, Erythrocyte Sedimentation Rate 128H, Prothrombin Time 14.8H, Prothromb Time International Ratio 1.19, Anion Gap 5L, Glomerular Filtration Rate 18.2L, Lactic Acid Level 1.3, Calcium Level 8.2L, Total Bilirubin 0.8, Direct Bilirubin 0.2, Aspartate Amino Transf (AST/SGOT) 18, Alanine Aminotransferase (ALT/SGPT) 25, Alkaline Phosphatase 106, C-Reactive Protein, Quantitative 16.20H, Total Protein 7.5, Albumin 2.5L, Albumin/Globulin Ratio 0.5 CBC/BMP Laboratory Tests 04/15/20 17:49 Microbiology Microbiology 04/15/20 Blood Culture, Received Pending 04/15/20 Gram Stain, Received Pending 04/15/20 Wound Culture, Received Pending 04/15/20 Blood Culture, Received Pending Home Medications Scheduled Allopurinol (Allopurinol) 100 Mg Tablet, 100 MG PO DAILY Calcium Acetate (Calcium Acetate) 667 Mg Tablet, 667 MG PO TID with meals Carvedilol (Carvedilol) 6.25 Mg Tablet, 6.25 MG PO BID Ergocalciferol (Vitamin D2) (Vitamin D2) 50,000 Units Cap, 50,000 UNITS PO QWEEK saturday Insulin Aspart (Novolog Flexpen) 100 Unit/Ml Inj, 1 DOSE SC ACHS PER SLIDING SCALE Insulin Detemir (Levemir) 100 Unit/1 Ml Vial, 80 UNITS SC BID Sucroferric Oxyhydroxide (Velphoro) 500 Mg Tab.chew, 1,000 MG PO TID with meals Torsemide (Torsemide) 20 Mg Tablet, 40 MG PO DAILY Scheduled PRN Albuterol Sulfate (Ventolin Hfa) 108 Mcg/Act Aer, 2 PUFF INH Q4H PRN for SHORTNESS OF BREATH Fluticasone Propion/Salmeterol (Advair Hfa 230-21 Mcg Inhaler) 12 Gm Hfa.aer.ad, 2 PUFF INH BID PRN for SOB/WHEEZING Loperamide HCl (Anti-Diarrheal) 2 Mg Tablet, 2 MG PO ASDIRECTED PRN for DIARRHEA Allergies Coded Allergies: aspirin (Verified Allergy, Unknown, 02/23/20) garlic (Verified Adverse Reaction, Intermediate, syncope, 02/23/20) silver (Verified Adverse Reaction, Intermediate, angulo, 02/23/20) A-FIB/CHADSVASC A-FIB History Current/History of A-Fib/PAF?: Yes Current PO Anticoag Therapy: No GME ATTESTATION GME ATTESTATION My faculty preceptor for this patient encounter was physically present during the encounter and was fully available. All aspects of the patient interview, examination, medical decision making process, and medical care plan development were reviewed and approved by the faculty preceptor. The faculty preceptor is aware and concurs with the plan as stated in the body of this note and will attest to such by his/her cosignature. ATTENDING NOTE HPI: The patient is a 54-year-old male past medical history of ESRD on hemodialysis MWF, diastolic CHF, hyperlipidemia, peripheral vascular disease status post stenting, history of nonhealing lower extremity wounds and lower extremity osteomyelitis, paroxysmal atrial flutter, asthma, hyperlipidemia who presented to the emergency room from dialysis after having blood pressure systolic 90s, feeling nauseous and vomiting during the day. By the time the patient came to the emergency room, his blood pressures have normalized. It was noted that he had a lateral right foot fifth digit stage III ulcer. The patient says he has had this ulcer for some time but has not been seen by pets and pet supplies salesperson, surgeon or his primary care doctor to have it assessed. The patients son has been helping him clean it out. It appeared to be infected, nonsuppurative, it had a foul smell. X-ray of the foot on preliminary reading was concerning for bone involvement adjacent to the ulcer. Official report pending. WBC 14.9, ESR 128, CRP 16.20, creatinine 3.74 and good compared to his baseline. With his history of noncompliance and multiple risk factors for infected ulcer progressing to osteomyelitis, the patient was admitted for stage III right foot ulcer likely requiring debridement. PMH, PSurgHx, PSocialHx, FamilyHx, Allergies, Home medications as mentioned above in resident note PHYSICAL EXAMINATION: CONSTITUTIONAL: No acute distress, resting comfortably, AAO x 3 EYES: PERRLA, EOM intact HENT, MOUTH: Normocephalic, atraumatic, moist mucous membranes, NECK: SUPPLE, large diameter, no JVD, no lymphadenopathy, no carotid bruit CV: Regular rate and rhythm, S1S2 normal, no murmurs/rubs/gallops RESPIRATORY: Clear to auscultation bilaterally, no rales/rhonchi/wheezes GI: obese abdomen, BS positive in 4 quadrants, soft, nontender, nondistended, no rebound or guarding, no organomegaly : Deferred MUSCULOSKELETAL: Normal ROM. No cyanosis, clubbing, woody edema bilateral lower ext INTEGUMENTARY: hardened skin bilateral lower ext, dry and scaling, Stage III ulcer over right foot 5th metatarsophalangeal joint, appears infected with yellow pus, nonsuppurative but has foul smell. NEUROLOGIC: Cranial Nerves II-XII are intact, no focal deficits PSYCHIATRIC: Mood and affect are normal Imaging: Right foot XR: 1. Bilateral degenerative changes, right greater than left. 2. Suspected ulceration in the subcutaneous tissue overlying the right MTP joint. 3. Bilateral peripheral vascular disease suggesting underlying diabetes. Chest x-ray: No acute cardiopulmonary disease ASSESSMENT: 54 y/o M admitted for worsening Stage III right foot ulcer likely requiring debridement. PLAN: 1. Stage III right foot ulcer over MTP joint. WBC 14,000, worsening appearance, noncompliance as outpatient. History of peripheral arterial disease, osteomyelitis. Consult podiatry for possible debridement, starting on IV V ancomycin, wound care. Daily labs. 2. Nausea. Improved. Zofran PRN. 3. Hypotension post-dialysis, resolved. Hx of HTN. C/w BB, CCB, lasix. 4. ESRD on HD MWF. Completed complete session of HD today. Cr better than baseline. Consulting nephrology, Dr. Balderrama. 5. Diastolic CHF. Denies shortness of breath, chest pain. C/w BB, CCB, Lasix. 6. Paroxysmal atrial flutter. NSR, HR controlled. C/w BB, not on chronic anticoagulation. 7. Asthma. On RA, CTAB. Albuterol PRN. 8. DVT px. Heparin SC. MARILY MANRIQUEZ D.O. April 15, 2020 21:19 Isabel Mckenzie MD April 15, 2020 21:42
[2020-04-15] MEDS ORDERED: VANCOMYCIN HCL 1,000 MG, VIAL MATE ADAPTER 1 EACH in D5W 250 ML IV ONE (21:30)
[2020-04-15] MEDS ORDERED: CARV6.25 PO (21:47)
[2020-04-15 23:16] VITALS: BP 138/80
[2020-04-15] MEDS: HumaLOG INSULIN (NovoLOG) PER UNIT SC SCH (23:40)
[2020-04-15] MEDS: LEVEMIR (INSULIN DETEMIR) 1 UNITS/0.01ML SC SCH (23:41)
[2020-04-15] MEDS: HEPARIN SOD (PORCINE) 5000UNITS/ML VIAL (J1644 PER 1000UNITS) SC SCH (23:57)
[2020-04-16] MEDS: ALBUTEROL 90 MCG/ACT 8GM HFA INHALER INH PRN ×2 (00:03→08:14)
--- NOTE | 2020-04-16 00:13 | PHACANCOPD ---
PHARMACY VANCOMYCIN DOSING Pt Demographics Demographics Patient Age:54 , Weight:122.100 , Gender: male Adjusted Body Weight Date: 04/16/20, Adjusted Body Weight: Kg Events Past 24 Hours Events Past 24 Hours: NO: Dialysis, Diuretic Therapy, Change in CrCl, Fever, Elevation in WBC, Pending Diagnostics, Pending Procedures, Other Vancomycin Vancomycin Target Ranges: 15-20 mcg/ml Vancomycin Load Y/N: Yes Load Dose Date Time Vancomycin Load Dose: 2000mg Date: 04-16 Time:0000 Vancomycin Dose Date: 04/16/20. Current Vancomycin Dose: Intermittent Dosing?: Yes Labs Labs Item Value Date Time White Blood Count 14.9 10^3/uL H 04/15/20 1749 Glomerular Filtration Rate 18.2 L 04/15/20 174 Creatinine 3.74 MG/DL H 04/15/20 1749 Blood Urea Nitrogen 32 MG/DL H 04/15/20 1749 Vital Signs Label Value Date Time Patient Temperature 98.9 degrees F 04/15/20 2316 Temperature Source Oral 04/15/20 2316 Micro Microbiology 04/15/20 Blood Culture, Received Pending 04/15/20 Gram Stain, Received Pending 04/15/20 Wound Culture, Received Pending 04/15/20 Blood Culture, Received Pending Creatinine Clearance Date:04/16/20. Creatinine Clearance: [HD]. Pending Labs Random 04-16 in am Assessment and Plan Maintaining Current Dose?: Yes Reason for dose change: No Dose Change Pharmacist Note Pharmacist Note Date: 04/16/20. Pharmacist note:Will monitor and make adjustments as needed. JESSENIA GROSS PHARMACY April 16, 2020 00:13
[2020-04-16] MEDS ORDERED: VANCOMYCIN HCL 1,000 MG, VIAL MATE ADAPTER 1 EACH in D5W 250 ML IV SCH (00:15)
[2020-04-16] MEDS: ADVAIR HFA 230/21MCG INHALER INH SCH ×3 (00:22→21:38)
[2020-04-16] MEDS ORDERED: VANCOMYCIN HCL 1,000 MG, VIAL MATE ADAPTER 1 EACH in D5W 250 ML IV ONE (01:00)
[2020-04-16] MEDS ORDERED: ONDANSETRON 4MG/2ML VIAL IV PRN (01:00)
[2020-04-16] MEDS: MEROPENEM INJ 500 MG in IV 1 EA IV SCH (04:41)
[2020-04-16] MEDS: HEPARIN SOD (PORCINE) 5000UNITS/ML VIAL (J1644 PER 1000UNITS) SC SCH ×3 (05:12→20:56)
[2020-04-16 06:00] VITALS: BP 139/80
[2020-04-16 06:15] LABS: BASO % 0.1 % (0.0-1.0); EOS % 0.6 % (0.0-3.0); HEMATOCRIT 27.9 % (42.0-52.0); HEMOGLOBIN 8.6 g/dl (13.5-17.5); LYMPH # 1.1 10^3/uL (1.5-5.0); LYMPH % 15.9 % (24.0-44.0); MEAN CORPUSCULAR HEMOGLOBIN 28.6 pg (27.0-33.0); MEAN CORPUSCULAR HGB CONC 30.8 g/dl (32.0-36.5); MEAN CORPUSCULAR VOLUME 92.7 fl (80.0-96.0); MONO # 0.8 10^3/uL (0.0-0.8); MONO % 11.3 % (0.0-5.0); NEUTROPHILS # 5.1 10^3/uL (1.5-8.5); NEUTROPHILS % 70.8 % (36.0-66.0); PLATELET COUNT, AUTOMATED 163 10^3/uL (150-450); RED BLOOD COUNT 3.01 10^6/uL (4.30-6.10); WHITE BLOOD COUNT 7.2 10^3/uL (4.0-10.0)
[2020-04-16 06:44] LABS: CALCIUM LEVEL 7.3 MG/DL (8.5-10.1); CREATININE FOR GFR 4.99 MG/DL (0.70-1.30); GLOMERULAR FILTRATION RATE 13.1 (>56); POTASSIUM SERUM 5.7 MEQ/L (3.5-5.1)
[2020-04-16] MEDS: HumaLOG INSULIN (NovoLOG) PER UNIT SC SCH ×4 (06:53→20:55)
[2020-04-16] MEDS: SUCROFERRIC OXYHYDROXIDE 500MG CHEW TAB (VELPHORO) PO SCH ×3 (08:08→18:32)
[2020-04-16] MEDS: TORSEMIDE 20 MG TAB PO SCH (08:09)
[2020-04-16] MEDS: CARVedilol 6.25 MG TAB PO SCH ×2 (08:09→20:56)
[2020-04-16] MEDS: CALCIUM ACETATE 667MG GELCAP PO SCH ×3 (08:10→18:32)
[2020-04-16] MEDS: LEVEMIR (INSULIN DETEMIR) 1 UNITS/0.01ML SC SCH ×2 (08:11→20:56)
[2020-04-16] MEDS ORDERED: amLODIPine 5 MG TAB PO SCH (09:00)
[2020-04-16] MEDS ORDERED: IRON SUCROSE 100MG 5ML VIAL (J1756 PER 1MG) IV SCH (10:45)
[2020-04-16] MEDS ORDERED: DARBEPOETIN 200MCG/0.4ML *DIALYSIS* SYRINGE (J0882 PER 1MCG) IV SCH (10:45)
[2020-04-16] MEDS ORDERED: SOD POLYSTYRENE SULFONATE SUSP 15 GM/60 ML UD PO ONE (12:00)
[2020-04-16 14:00] VITALS: BP 132/79
[2020-04-16] MEDS: **VANCO AFTER HD** MISC XX SCH (15:57)
[2020-04-16 19:53] VITALS: BP 122/86
[2020-04-17] MEDS: MEROPENEM INJ 500 MG in IV 1 EA IV SCH (04:31)
[2020-04-17] MEDS: HEPARIN SOD (PORCINE) 5000UNITS/ML VIAL (J1644 PER 1000UNITS) SC SCH ×3 (05:08→22:05)
[2020-04-17 06:00] VITALS: BP 142/80
[2020-04-17 06:43] LABS: VANCOMYCIN RANDOM 20.9 UG/ML
[2020-04-17] MEDS: LEVEMIR (INSULIN DETEMIR) 1 UNITS/0.01ML SC SCH ×2 (08:17→20:25)
[2020-04-17] MEDS: SUCROFERRIC OXYHYDROXIDE 500MG CHEW TAB (VELPHORO) PO SCH ×3 (08:18→18:04)
[2020-04-17] MEDS: TORSEMIDE 20 MG TAB PO SCH (08:18)
[2020-04-17] MEDS: CALCIUM ACETATE 667MG GELCAP PO SCH ×3 (08:18→18:04)
[2020-04-17] MEDS: HumaLOG INSULIN (NovoLOG) PER UNIT SC SCH ×4 (08:18→20:26)
[2020-04-17] MEDS: CARVedilol 6.25 MG TAB PO SCH ×2 (08:19→20:25)
[2020-04-17 08:22] LABS: BASO % 0.2 % (0.0-1.0); EOS # 0.1 10^3/uL (0.0-0.5); EOS % 1.3 % (0.0-3.0); HEMATOCRIT 26.1 % (42.0-52.0); HEMOGLOBIN 8.4 g/dl (13.5-17.5); LYMPH # 1.3 10^3/uL (1.5-5.0); LYMPH % 24.3 % (24.0-44.0); MEAN CORPUSCULAR HEMOGLOBIN 29.7 pg (27.0-33.0); MEAN CORPUSCULAR HGB CONC 32.2 g/dl (32.0-36.5); MEAN CORPUSCULAR VOLUME 92.2 fl (80.0-96.0); MONO # 0.7 10^3/uL (0.0-0.8); MONO % 13.3 % (0.0-5.0); NEUTROPHILS # 3.1 10^3/uL (1.5-8.5); NEUTROPHILS % 59.7 % (36.0-66.0); PLATELET COUNT, AUTOMATED 169 10^3/uL (150-450); RED BLOOD COUNT 2.83 10^6/uL (4.30-6.10); WHITE BLOOD COUNT 5.2 10^3/uL (4.0-10.0)
[2020-04-17 08:25] LABS: CALCIUM LEVEL 7.8 MG/DL (8.5-10.1); CREATININE FOR GFR 6.51 MG/DL (0.70-1.30); GLOMERULAR FILTRATION RATE 9.6 (>56); PHOSPHORUS LEVEL 6.2 MG/DL (2.5-4.9); POTASSIUM SERUM 4.9 MEQ/L (3.5-5.1)
[2020-04-17] MEDS: ADVAIR HFA 230/21MCG INHALER INH SCH ×2 (08:45→19:57)
--- NOTE | 2020-04-17 09:36 | CR ---
DATE OF CONSULTATION: 04/16/2020 REQUESTING PHYSICIAN: Dr. Isabel Mckenzie CONSULTING PHYSICIAN: Dr. Balderrama REASON FOR CONSULTATION: Management of end stage renal disease and hemodialysis. CHIEF COMPLAINT: The patient was sent from dialysis center because of dizziness and hypotension after dialysis. HISTORY OF PRESENT ILLNESS: Mr. Jarocho Parrish is a 54-year-old male with past medical history of end stage renal disease on hemodialysis q. Saturday, Saturday, Saturday, well known to nephrology service from outpatient dialysis and from multiple previous hospitalizations, diabetes mellitus type 2 insulin dependent, chronic lower extremity edema and leg ulcerations, not very compliant with medication and outpatient clinic followups. He had a nonhealing ulcer in the right foot. He was not feeling well for the last 2-3 days. He had episodes of vomiting a day before coming for dialysis. He came for dialysis as per his regular Saturday, Saturday, Saturday schedule yesterday. He was dialyzed and after the dialysis he felt very dizzy and lightheaded. He had altered mental status and his blood pressures were low after dialysis. Because of a draining foot wound, he was sent to the emergency room for further evaluation. The patient was admitted to the hospitalist service yesterday. He was started on IV antibiotics because of nonhealing diabetic foot ulcer. Nephrology service was called for further help in the management of this patient. I saw and evaluated the patient today morning at the bed side. The patient reports that he is feeling much better today as compared with yesterday. He denies any active complaints at this time apart from nonhealing foot ulcer. PAST MEDICAL HISTORY: Past medical history of end-stage renal disease on hemodialysis q. Saturday, Saturday, Saturday, diabetes mellitus type 2 insulin-dependent, chronic lower extremity lymphedema and foot ulcers, asthma, paroxysmal atrial flutter, hypertension with end-stage renal disease, chronic diastolic congestive heart failure, coronary artery disease, history of [id number] myocardial infarction (NSTEMI) in the past, peripheral vascular disease status post stent placement in the femoral artery, and obesity. PAST SURGICAL HISTORY: Status post tonsillectomy in the past, cholecystectomy in the past, left knee surgery, history of wound Vac placement in the left lower extremity because of ulcer, and tunneled hemodialysis catheter placement. ALLERGIES: The patient is allergic to ASPIRIN, GARLIC, and SILVER. FAMILY HISTORY: No significant family history of end stage renal disease requiring hemodialysis. SOCIAL HISTORY: The patient lives at home. He denies any smoking, illicit drug abuse or alcohol abuse. REVIEW OF SYSTEMS: Constitutional: The patient reported feeling weak, tired and drowsy when he came in. Eyes: He denies any blurry vision or double vision. ENT: Denies any dysphagia or odynophagia. Cardiovascular: Denies any chest pain or palpitations. Respiratory: Denies any shortness of breath or cough. GI: He did report nausea and vomiting and decreased appetite about two days before coming to the hospital. Genitourinary: Denies any dysuria or hematuria. Musculoskeletal: He reports a nonhealing right foot ulcer. SEAFOOD CLERK: He denies any strokes or seizures. Psych: He denies any depression or anxiety. Hematologic/Oncologic: He denies any easy bleeding or bruising. He does report a draining ulcer from the right foot. Endocrine: He reports diabetes mellitus type 2. All other review of systems is negative. PHYSICAL EXAMINATION: General: The patient is awake, alert and oriented times three, laying in bed in no apparent distress. Vital Signs: Temperature 98.6 degrees Fahrenheit, blood pressure 132/79, pulse 80, respiratory rate 18, and saturating 98% on room air. Head and Neck Exam: Extraocular muscles intact. Pupils equally round and reactive to light. Mucous membranes are moist. Neck is supple. There is no jugular venous distention (JVD). He has a left internal jugular (IJ) tunneled hemodialysis catheter. Cardiovascular: S1, S2, regular rate. 2+ edema, lymphedema of the bilateral lower extremities. Respiratory: Chest is clear to auscultation bilaterally. Bilateral equal air entry. No rales or rhonchi. Abdomen: Soft. Obese. Positive bowel sounds. Nontender. No organomegaly. Musculoskeletal: The patient has chronic lymphedema of the bilateral lower extremities. Chronic venous stasis changes. He has a right foot ulcer on the lateral aspect of the foot which is covered with a dressing. SEAFOOD CLERK: No focal deficit. Power is 5/5 in bilateral upper extremities. Psych: Normal mood and affect. LABORATORY REVIEW: CBC showed a WBC of 14.9 on arrival and repeat CBC showed a WBC of 7.2, hemoglobin 8.6 and platelets are 163. BMP showed sodium 135, potassium 5.7, chloride 98, bicarb 28, BUN 40, creatinine 4.9, calcium 7.3. C-reactive protein 16.2 yesterday. Random vancomycin is 30.3. MICROBIOLOGY: Preliminary blood cultures are negative. Wound cultures are pending. IMAGING STUDIES: Foot x-ray and chest x-ray was done, official report pending. CURRENT INPATIENT MEDICATIONS: - meropenem 500 mg IV every 24 hours, he was on vancomycin with dialysis - Mylanta p.r.n. - amlodipine 5 mg daily, was stopped because of low blood pressures - PhosLo 667 mg by mouth with meals - Coreg 6.25 mg by mouth twice a day - Aranesp 200 mg IV with dialysis - insulin Levemir 40 units subcutaneous twice a day - insulin Lispro sliding scale - Venofer 100 mg IV at bedtime - the patient was given a dose of Kayexalate 15 grams by mouth x1 dose - Velphoro 1 gram by mouth with meals - torsemide 40 mg by mouth daily ASSESSMENT: 54-year-old male with history of diabetes mellitus type 2 insulin dependent, end stage renal disease on hemodialysis, chronic lymphedema and nonhealing foot ulcer, hypertension, history of atrial flutter, admitted at this time because of nonhealing diabetic foot ulcer. PLAN: 1. End stage renal disease. The patient was dialyzed yesterday. He was hypotensive after dialysis. His hyperkalemia will be treated with oral medication. No urgent need of dialysis today. 2. Diabetic foot ulcer on the right foot. The patient is currently empirically on vancomycin and meropenem. He should get MRI done to rule out osteomyelitis of the foot. The rest of the management is as per the medical team and podiatry. 3. Hypertension. The patient was hypotensive on arrival. He continues to be on Coreg, amlodipine is on hold. 4. Anemia in end stage renal disease. Hemoglobin level is suboptimal. He has been started on Aranesp and Venofer with dialysis. 5. Chronic diastolic congestive heart failure. Continue current dose of torsemide and c carvedilol. The rest of the edema management will be done with dialysis. 6. Paroxysmal atrial flutter. Heart rate is controlled. The patient is on carvedilol. 7. Diabetes mellitus type 2, insulin dependent. Continue current dose of Levemir and sliding scale insulin. The rest of the management is as per primary team. 8. Chronic kidney disease mineral bone disease. Continue current dose of PhosLo and Velphoro. Thank you for involving me in the care of this patient. I shall be happy to follow the patient along with you tomorrow morning.
[2020-04-17 14:00] VITALS: BP 138/80
--- NOTE | 2020-04-17 14:22 | IPN ---
DATE: 04/17/2020 SUBJECTIVE: Patient was seen and examined at the bedside today morning. He is afebrile, hemodynamically stable. He feels much better today. He continues to be on intravenous (IV) antibiotics. He still complains of a draining wound from the right foot. OBJECTIVE: Vital signs: Temperature is 97.9 degrees Fahrenheit, blood pressure 142/80, pulse of 94, respiratory rate of 16, saturating 98% on room air. Intake and output: Urine output recorded at 300 mL. Weight on the bed scale is 122.3 kg. PHYSICAL EXAM: General: Patient is awake, alert, oriented times three, sitting up in the bed, in no apparent distress. Head and neck exam: Extraocular muscles intact. Pupils equally round and reactive to light. Mucous membranes are moist. Neck is supple. He has a tunneled hemodialysis catheter. Cardiovascular: S1, S2, regular rate. 2+ edema of the bilateral lower extremities. Respiratory: Chest is clear to auscultation bilaterally. Bilateral equal air entry. No rales. No rhonchi. Abdomen: Is soft. Positive bowel sounds. Nontender. No organomegaly. Musculoskeletal: Patient has chronic venous stasis changes of the bilateral lower remedies, and he has a right foot ulcer on the lateral aspect of the foot covered with a dressing. Central nervous system (PASTRY BAKER): No focal deficit. Power is 5/5 in bilateral upper extremities. LAB REVIEW: CBC showed a WBC of 5.2, hemoglobin is 8.4, platelets are 169. BMP showed sodium 137, potassium 4.9, chloride 104, bicarbonate 26, BUN 63, creatinine 6.5, phosphorus is 6.2. Vancomycin level is 20.9. CURRENT IMPATIENT MEDICATIONS: Patient's medications were all reviewed by myself. He continues to be on IV vancomycin and meropenem. Amlodipine is on hold. No significant change in the medications today as compared with yesterday. ASSESSMENT AND PLAN: 1. End-stage renal disease. Patient's regular dialysis days are Saturday, Saturday, Saturday. He will be dialyzed tomorrow morning as per his regular schedule. 2. Hyperkalemia. Potassium level improved with administration of Kayexalate yesterday 3. Anemia on end-stage renale disease. Hemoglobin level is suboptimal. He has been started on Aranesp and Venofer with dialysis. No need of blood transfusion. 4. Nonhealing diabetic foot ulcer on the right foot. Patient continues to be on empiric vancomycin and meropenem. Rest of the management is as per podiatry. 5. Hypertension with end-stage renal disease. Continue current dose of carvedilol. Amlodipine is on hold. 6. Chronic kidney disease, minimal bone disease. Continue current dose of PhosLo and Velphoro. Phosphorus level is improving. 7. Chronic diastolic congestive heart failure. Continue current dose of torsemide. Rest of the volume management is being done with dialysis. 8. Diabetes mellitus type 2, insulin dependent. Glucose levels are controlled with current dose of Levemir and insulin sliding scale.
[2020-04-17] MEDS: **VANCO AFTER HD** MISC XX SCH (14:40)
--- NOTE | 2020-04-17 15:09 | IPNPDOC ---
Date Seen The patient was seen on 04/17/20. Progress Note 54 year old male admitted for bilateral infected ulcer of skin with drainage complaining of increasing shortness of breath and cough, and chronic insomnia. He was admitted for nausea and vomiting and subsequent dizziness after hemodialysis. He has significant PMH of ESRD on hemodialysis MWF; Diabetes Mellitus type II Insulin dependent; Obesity; Chronic Asthma; Paroxysmal Atrial flutter; Hypertension; Diastolic CHF; CAD with old NSTEMI; Pulmonary hypertension; Peripheral vascular disease status post stent placement in femoral artery; History of non healing lower extremity wounds, lower extremity osteomyelitis / Status post left lower extremity wound VAC; Chronic venous stasis changes and lymphedema of both his lower extremities. SUBJECTIVE: General: Reports: Fatigue Constitutional: Reports: Fatigue Eyes: Denies: Pain, Vision change, Conjunctivae inflammation, Eyelid inflammation, Redness, Other ENT: Denies: Head Aches, Ear Pain, Dysphagia, Sinus Congestion, Post Nasal Drip , Sore Throat, Epistaxis, Other Symptoms Skin: Denies: Rash, Lesions, Jaundice, Bruising, Itching, Dry, Breakdown, Nail Changes, Other Pulmonary: Reports: Dyspnea, Cough, Pleuritic Chest Pain Cardiovascular: Reports: Orthopnea, Edema Gastrointestinal: Denies: Nausea, Vomiting, Abdominal Pain, Diarrhea, Constipa tion, Melena, Hematochezia, Other Symptoms Genitourinary: Denies: Dysuria, Frequency, Incontinence, Hematuria, Retention, Other Symptoms Hematologic: Denies: Bruising, Bleeding Excessively, Petecchia, Purpura, Enlarged Lymph Nodes, Other Hematologic Musculoskeletal: Reports: Leg Pain, Foot Pain Neurological: Reports: Weakness Psych: Denies Laboratory Tests 04/15/20 17:49 04/16/20 05:56 04/17/20 06:02 04/17/20 06:06 Microbiology 04/15/20 Blood Culture - Preliminary, Resulted No growth after 24 hours . All specim... 04/15/20 Gram Stain - Final, Resulted 04/15/20 Wound Culture, Resulted Pending 04/15/20 Blood Culture - Preliminary, Resulted No growth after 24 hours . All specim... Vital Sign - Last 24 Hours 04/17/20 04/17/20 04/17/20 04/17/20 06:00 08:19 14:00 20:25 Temp 97.9 98.0 Pulse 94 94 86 94 Resp 16 18 B/P (MAP) 142/80 (100) 142/80 138/80 (99) 180/92 Pulse Ox 98 98 O2 Delivery Room Air Room Air OBJECTIVE PHYSICAL EXAMINATION: General Exam: Alert, Cooperative, Mild Distress Eye Exam: PERRLA, Conjunctiva & lids normal ENT Exam: Atraumatic, Mucous membr. moist/pink, Pharynx Normal, Tongue Midline Neck Exam: Supple, +2 carotid pulse wo bruit Chest Exam: Wheezing Heart Exam: Rate Normal, Regular Rhythm, Normal S1, Normal S2 Abdomen Exam: Normal bowel sounds, Tenderness (to palpation all quadrants) Extremity Exam: Edema, Tenderness, Swelling Skin Exam: Breakdown, Other skin issue Neuro Exam: Normal Speech, Cranial Nerves 3-12 NL (grossly intact) Psych Exam: Mood NL, Memory Intact, Oriented x 3 LABORATORY DATA, IMAGING STUDIES, MICROBIOLOGY: Please see below. Laboratory Tests 04/16/20 05:56 04/17/20 06:02 04/17/20 06:06 ASSESSMENT AND PLAN: 54 year old male admitted for bilateral infected ulcer of skin with drainage admitted for nausea and vomiting and subsequent dizziness after hemodialysis. Plan Stage 3 right foot ulcer - Elevated WBC, ESR, and CRP. XR does not show signs of osteomyelitis - Wound culture and blood cultures x2 pending - Broad spectrum abx with IV vancomycin and meropenem, MRSA screen ordered - Day team consider consulting podiatry for debridement - Wound care daily Acute on Chronic Asthma Exacerbation Continue home inhalers, improving Nausea and vomiting. Improved, continue with distant carbohydrate diet as tolerated. PRN Zofran if n ausea returns. Hypertension, with episodic hypotension-acute on chronic (HD days) -Has transient hypotension after dialysis will need to continue to monitor on HD days. - Continue home carvedilol, torsemide Diabetes mellitus Consistent carbohydrate diet, hypoglycemic protocol -Continue levemir 40 units BID, SSI per protocol achs. ESRD on HD MWF Completed dialysis yesterday. -Continue home velphoro Anemia of chronic disease, likely ESRD Continue to monitor CBC daily. H&H has increasingly improved Diastolic CHF -Continue home carvedilol, torsemide -Daily weight monitoring Paroxysmal atrial flutter - currently in sinus rhythm, not on chronic anticoagulation - continue home carvedilol PPI-not needed DVT prophylaxis ordered: Heparin 5000 IU SC q 8 hours DISPOSITION: Pending clinical course FULL CODE VS, I&O, 24H, Fishbone Vital Signs/I&O Vital Signs Date Time Temp Pulse Resp B/P (MAP) Pulse Ox O2 Delivery O2 Flow Rate FiO2 04/17/20 14:00 98.0 86 18 138/80 (99) 98 Room Air I&O- Last 24 Hours up to 6 AM 04/17/20 05:59 Intake Total 1200 ml Output Total 750 ml Balance 450 ml Laboratory Data Microbiology NIRU EDWARDS April 17, 2020 15:09
--- NOTE | 2020-04-17 21:29 | IPNPDOC ---
Subjective Date Seen error duplicate chart Subjective Chief Complaint/HPI VS, I&O, 24H, Emilie Vital Signs/I&O Laboratory Data CBC/BMP NIRU EDWARDS April 17, 2020 21:29
--- NOTE | 2020-04-17 21:45 | IPNPDOC ---
Subjective Date Seen The patient was seen on 04/16/20. Subjective Chief Complaint/HPI 54 year old male admitted for bilateral infected ulcer of skin with drainage complaining of increasing shortness of breath and cough, and chronic insomnia. He was admitted for nausea and vomiting and subsequent dizziness after hemodialysis. He has significant PMH of ESRD on hemodialysis MWF; Diabetes Mellitus type II Insulin dependent; Obesity; Chronic Asthma; Paroxysmal Atrial flutter; Hypertension; Diastolic CHF; CAD with old NSTEMI; Pulmonary hypertension; Peripheral vascular disease status post stent placement in femoral artery; History of non healing lower extremity wounds, lower extremity osteomyelitis / Status post left lower extremity wound VAC; Chronic venous stasis changes and lymphedema of both his lower extremities. General: Reports: Fatigue, Malaise Constitutional: Reports: Malaise, Fatigue Eyes: Denies: Pain, Vision change, Conjunctivae inflammation, Eyelid inflammation, Redness, Other ENT: Denies: Head Aches, Ear Pain, Dysphagia, Sinus Congestion, Post Nasal Drip, Sore Throat, Epistaxis, Other Symptoms Skin: Reports: Breakdown, Other (wound drainage right lower leg/ankle/foot) Pulmonary: Reports: Dyspnea, Cough, Other Symptoms (shortness of breath) Cardiovascular: Reports: Orthopnea, Edema Gastrointestinal: Denies: Nausea, Vomiting, Abdominal Pain, Diarrhea, Constipation, Melena, Hematochezia, Other Symptoms Genitourinary: Denies: Dysuria, Frequency, Incontinence, Hematuria, Retention, Other Symptoms Endocrine: Denies: Polydipsia, Polyphagia, Polyuria, Heat Intolerance, Cold Intolerance, Other Endocrine Sx Musculoskeletal: Reports: Foot Pain Neurological: Reports: Weakness Psych: Reports: Mood Normal Objective Physical Examination General Exam: Positive: Alert, Cooperative, Mild Distress Eye Exam: Positive: PERRLA, Conjunctiva & lids normal, EOMI, Sclera icteric ENT Exam: Positive: Atraumatic, Mucous membr. moist/pink, Pharynx Normal, Tongue Midline, Ext Auditory Canal Nml Neck Exam: Positive: Supple, thyromegaly, +2 carotid pulse wo bruit Chest Exam: Positive: Wheezing (bilateral apical lobes), Diminished (bilateral base lobes) Heart Exam: Positive: Rate Normal, Normal S1, Normal S2 Abdomen Exam: Positive: Normal bowel sounds, Other (protuberant, semi-firm abdomin, non-tender to palpation) Extremity Exam: Positive: Edema (+3 pitting edema BLE), Tenderness (to palpation), Swelling Skin Exam: Positive: Breakdown, Other skin issue (excessive white, flaky skin B LE; toenails thickend (onychomycosis) bilateral phalanges) Neuro Exam: Positive: Normal Speech, Normal Tone, Cranial Nerves 3-12 NL Psych Exam: Positive: Mental status NL, Mood NL, Oriented x 3 Assessment /Plan Problems (1) Infected ulcer of skin Status: Acute Problem Text: 54 year old male admitted for bilateral infected ulcer of skin with drainage complaining of increasing shortness of breath and cough, and chronic insomnia. Plan Acute on Chronic Asthma Exacerbation Continue home inhalers, called Respiratory for breathing treatment Stage 3 right foot ulcer - Elevated WBC, ESR, and CRP. XR does not show signs of osteomyelitis - Wound culture and blood cultures x2 pending - Broad spectrum abx with IV vancomycin and meropenem, MRSA screen ordered - Day team consider consulting podiatry for debridement - Wound care daily Nausea and vomiting. Improved, continue with distant carbohydrate diet as tolerated. PRN Zofran if nausea returns. Hypertension, with episodic hypotension-acute on chronic (HD days) -Has transient hypotension after dialysis will need to continue to monitor on HD days. - Continue home carvedilol, torsemide Diabetes mellitus Consistent carbohydrate diet, hypoglycemic protocol -Continue levemir 40 units BID, SSI per protocol achs. ESRD on HD MWF Completed dialysis yesterday. -Continue home velphoro Anemia of chronic disease, likely ESRD Continue to monitor CBC daily. H&H has increasingly improved Diastolic CHF -Continue home carvedilol, torsemide -Daily weight monitoring Paroxysmal atrial flutter - currently in sinus rhythm, not on chronic anticoagulation - continue home carvedilol Insomnia-chronic -Refused treatment at this time PPI-not needed DVT prophylaxis: sc heparin DISPOSITION: Pending clinical course Plan/VTE VTE Prophylaxis Ordered?: Yes VS, I&O, 24H, Fishbone Vital Signs/I&O Vital Signs Date Time Temp Pulse Resp B/P (MAP) Pulse Ox O2 Delivery O2 Flow Rate FiO2 04/16/20 08:09 82 139/80 04/16/20 06:00 98.4 18 96 Room Air I&O- Last 24 Hours up to 6 AM 04/16/20 06:00 Intake Total 1230 ml Output Total 0 ml Balance 1230 ml Laboratory Data 24H LABS Laboratory Tests 2 04/15/20 17:49: Immature Granulocyte % (Auto) 1.0, Neutrophils (%) (Auto) 83.4H, Lymphocytes (%) (Auto) 7.3L, Monocytes (%) (Auto) 7.9H, Eosinophils (%) (Auto) 0.3, Basophils (%) (Auto) 0.1, Neutrophils # (Auto) 12.4H, Lymphocytes # (Auto) 1.1L, Monocytes # (Auto) 1.2H, Eosinophils # (Auto) 0.0, Basophils # (Auto) 0.0, Nucleated Red Blood Cells % (auto) 0.0, Erythrocyte Sedimentation Rate 128H, Prothrombin Time 14.8H, Prothromb Time International Ratio 1.19, Anion Gap 5L, Glomerular Filtration Rate 18.2L, Lactic Acid Level 1.3, Calcium Level 8.2L, Total Biliru bin 0.8, Direct Bilirubin 0.2, Aspartate Amino Transf (AST/SGOT) 18, Alanine Aminotransferase (ALT/SGPT) 25, Alkaline Phosphatase 106, C-Reactive Protein, Quantitative 16.20H, Total Protein 7.5, Albumin 2.5L, Albumin/Globulin Ratio 0.5 04/15/20 23:25: Methicillin-Resist S.aureus DNA PCR NOT DETECTED 04/15/20 23:28: Bedside Glucose (Misc Panel) 109H 04/16/20 05:56: Immature Granulocyte % (Auto) 1.3, Neutrophils (%) (Auto) 70.8H, Lymphocytes (%) (Auto) 15.9L, Monocytes (%) (Auto) 11.3H, Eosinophils (%) (Auto) 0.6, Basophils (%) (Auto) 0.1, Neutrophils # (Auto) 5.1, Lymphocytes # (Auto) 1.1L, Monocytes # (Auto) 0.8, Eosinophils # (Auto) 0.0, Basophils # (Auto) 0.0, Nucleated Red Blood Cells % (auto) 0.0, Anion Gap 9, Glomerular Filtration Rate 13.1L, Calcium Level 7.3L, Random Vancomycin Level 30.3 CBC/BMP Laboratory Tests 04/15/20 17:49 04/16/20 05:56 Microbiology Microbiology 04/15/20 Blood Culture, Received Pending 04/15/20 Gram Stain - Final, Resulted 04/15/20 Wound Culture, Resulted Pending 04/15/20 Blood Culture, Received Pending NIRU EDWARDS AUTOMOT[employer] PAINTER April 16, 2020 08:25
[2020-04-17 22:00] VITALS: BP 180/92
[2020-04-18] MEDS: MEROPENEM INJ 500 MG in IV 1 EA IV SCH (04:40)
[2020-04-18] MEDS: HEPARIN SOD (PORCINE) 5000UNITS/ML VIAL (J1644 PER 1000UNITS) SC SCH (05:15)
[2020-04-18 05:16] VITALS: BP 164/84
[2020-04-18] MEDS: TORSEMIDE 20 MG TAB PO SCH (05:16)
[2020-04-18] MEDS: CARVedilol 6.25 MG TAB PO SCH (05:16)
[2020-04-18] MEDS: SUCROFERRIC OXYHYDROXIDE 500MG CHEW TAB (VELPHORO) PO SCH (05:16)
[2020-04-18 06:00] VITALS: BP 164/84
[2020-04-18] MEDS: ADVAIR HFA 230/21MCG INHALER INH SCH (07:04)
[2020-04-18] MEDS: HumaLOG INSULIN (NovoLOG) PER UNIT SC SCH (07:30)
[2020-04-18] MEDS: LEVEMIR (INSULIN DETEMIR) 1 UNITS/0.01ML SC SCH (08:23)
[2020-04-18] MEDS: CALCIUM ACETATE 667MG GELCAP PO SCH (08:24)
[2020-04-18 10:56] LABS: BASO % 0.2 % (0.0-1.0); EOS # 0.1 10^3/uL (0.0-0.5); EOS % 1.6 % (0.0-3.0); HEMATOCRIT 29.6 % (42.0-52.0); HEMOGLOBIN 9.4 g/dl (13.5-17.5); LYMPH # 1.4 10^3/uL (1.5-5.0); LYMPH % 24.2 % (24.0-44.0); MEAN CORPUSCULAR HEMOGLOBIN 29.3 pg (27.0-33.0); MEAN CORPUSCULAR HGB CONC 31.8 g/dl (32.0-36.5); MEAN CORPUSCULAR VOLUME 92.2 fl (80.0-96.0); MONO # 0.5 10^3/uL (0.0-0.8); MONO % 7.8 % (0.0-5.0); NEUTROPHILS # 3.8 10^3/uL (1.5-8.5); NEUTROPHILS % 65.2 % (36.0-66.0); PLATELET COUNT, AUTOMATED 200 10^3/uL (150-450); RED BLOOD COUNT 3.21 10^6/uL (4.30-6.10); WHITE BLOOD COUNT 5.8 10^3/uL (4.0-10.0)
[2020-04-18] MEDS ORDERED: KEFL500C17 PO (11:05)
[2020-04-18 11:56] LABS: ALBUMIN 2.2 GM/DL (3.2-5.2); CALCIUM LEVEL 8.2 MG/DL (8.5-10.1); CREATININE FOR GFR 7.4 MG/DL (0.70-1.30); GLOMERULAR FILTRATION RATE 8.3 (>56); PHOSPHORUS LEVEL 6.1 MG/DL (2.5-4.9); POTASSIUM SERUM 5.9 MEQ/L (3.5-5.1)
--- NOTE | 2020-04-18 17:36 | IPN ---
DATE: 04/18/2020 SUBJECTIVE: The patient was seen and examined at the bedside today morning. He is afebrile, hemodynamically stable. Today is the patient's regular day of dialysis. The patient reports that he was seen by podiatry, and he was told that he can be seen as outpatient, and there is no osteomyelitis in the right foot. OBJECTIVE: Vital signs: Temperature is 98 degrees Fahrenheit, blood pressure 164/84, pulse is 66, respiratory rate of 18, saturating 98% on room air. Intake and output: Urine output recorded was 1.4 liters yesterday, 750 mL so far today since overnight. Weight in the bed is 123.3 kg. PHYSICAL EXAMINATION: GENERAL: The patient is awake, alert, oriented times three, lying in bed, no apparent distress. HEAD AND NECK: Extraocular muscles intact. Pupils equally round and reactive to light. Mucous membranes are moist. Neck is supple. He has a tunneled hemodialysis catheter. CARDIOVASCULAR: S1, S2. Edema 2+ of the bilateral lower extremities. RESPIRATORY: Chest is clear to auscultation bilaterally. Bilateral equal air entry. No rales or rhonchi. ABDOMEN: Soft, obese. Positive bowel sounds. Nontender. No organomegaly. MUSCULOSKELETAL: The patient has chronic venous stasis changes of the bilateral lower extremities. He has edema of the extremities, and oozing of fluid on the right leg was noted. He has an ulcer on the dorsum of the right foot and on lateral aspect of the right foot. Both are covered with dressings. CENTRAL NERVOUS SYSTEM: No focal deficit. Power is 5/5 in bilateral upper extremities. LABORATORY REVIEW: CBC showed WBC of 5.8, hemoglobin 9.4, platelets are 200. BMP from today is pending. CURRENT INPATIENT MEDICATIONS: The patient's medications were all reviewed by myself. He continues to been IV vancomycin and meropenem. There is no change in the medications today as compared with yesterday. ASSESSMENT AND PLAN: 1. End-stage renal disease. Patient's dialysis days are Saturday, Saturday, Saturday. If patient is discharged today, he can be dialyzed as outpatient, and I have discussed with dialysis center to keep his chair open. 2. Nonhealing diabetic foot ulcers on the right foot. The patient was seen by podiatry. I do not see the note at this time, but apparently he was told that he can followup as outpatient, and he can take oral antibiotics. 3. Anemia and end-stage renal disease. The patient has Aranesp and Venofer ordered for here. When he gets discharged, anemia will be managed as outpatient. 4. Hypertension with end-stage renal disease. Continue current dose of carvedilol, and amlodipine was stopped because of edema. 5. Chronic kidney disease and mineral bone disease. Continue Phos-Lo and Velphoro. DISPOSITION: Patient is optimized to be discharged from nephrology standpoint, and I can arrange his dialysis to be done as outpatient.
--- NOTE | 2020-04-18 18:37 | CR ---
DATE OF CONSULTATION: 04/18/2020 REASON FOR CONSULTATION: Right foot wound. Jarocho Parrish is a pleasant 54-year-old male who was admitted to the hospital with dizziness as well as an ulceration on his right foot. He states the foot wound has been present there about 2 weeks. He has history of ulcerations of both feet and legs. In the past he had seen Dr. Powers for wound care. PAST MEDICAL HISTORY: 1. End-stage renal disease, on hemodialysis Saturday, Saturday, Saturday. 2. Insulin-dependent diabetes. 3. Chronic asthma. 4. Paroxysmal atrial flutter. 5. Chronic hypertension. 6. Diastolic congestive heart failure (CHF). 7. Coronary artery disease. 8. History of nmz-SE-itrkspcky myocardial infarction (NSTEMI). 9. Pulmonary hypertension. 10. Peripheral vascular disease, status post stenting. 11. Chronic lymphedema. 12. Obesity. PAST SURGICAL HISTORY: 1. Tonsillectomy. 2. Cholecystectomy. 3. Left knee surgery. 4. Lower extremity stenting. SOCIAL HISTORY: Denies alcohol or tobacco use. FAMILY HISTORY: Includes diabetes. ALLERGIES: ASPIRIN, garlic, and silver. REVIEW OF SYSTEMS: Positive for nausea and vomiting prior to admission. Negative for fever or chills. Vital signs are reviewed. He has remained afebrile since admission. Labs are reviewed. White blood cell count on admission was 14.9, yesterday was 5.2. ESR on admission was 128. CRP on admission was 16.2. Imaging studies reviewed. The foot x-ray shows no signs of osteomyelitis. No erosive changes to the 5th metatarsal bone, to which the wound is adjacent. No soft tissue emphysema. Lower extremity examination: Large edema present on both lower extremities with indurated skin consistent with lymphedema. The pedal pulses are now palpable; however, the distal capillary refill is brisk. There is an ulceration on the right lateral foot, adjacent to the 5th metatarsal head. There is some necrotic tissue. There is no probe to bone. ASSESSMENT: A 54-year-old diabetic male with end-stage renal disease, peripheral vascular disease with right foot ulceration and cellulitis. TREATMENT: The wound was debrided with a dermal curette in excisional fashion, including subcutaneous tissue. Wound care orders as directed. Should have Vashe and Hydrofera Blue to the wound covered with an Optifoam. He should be discharged on oral antibiotics for 2 weeks. He should have followup with Dr. Powers, as he has seen him in the past. He should see me within 2 weeks of discharge as well for preventative care.
== END 2020-04-18 12:00 | disposition home or self-care (01) | DRG 638 ==
LOC: M ED 17:04 → M ED INP 20:51 → ENRESERVTM 21:50 → ENRESERVDT 21:50 → M MS5PR 23:16
PROVIDERS: ADMIT Internal Medicine; ATTEND Internal Medicine
DX: E11.621 Type 2 diabetes mellitus with foot ulcer (principal); I50.32 Chronic diastolic (congestive) heart failure; I13.2 Hypertensive heart and chronic kidney disease with heart failure and with stage 5 chronic kidney disease, or end stage renal disease; I48.92 Unspecified atrial flutter; N18.6 End stage renal disease; I25.10 Atherosclerotic heart disease of native coronary artery without angina pectoris; I25.2 Old myocardial infarction; E11.51 Type 2 diabetes mellitus with diabetic peripheral angiopathy without gangrene; I27.20 Pulmonary hypertension, unspecified; J45.909 Unspecified asthma, uncomplicated; E66.9 Obesity, unspecified; I87.8 Other specified disorders of veins; L97.519 Non-pressure chronic ulcer of other part of right foot with unspecified severity; D63.1 Anemia in chronic kidney disease; Z79.4 Long term (current) use of insulin; Z79.899 Other long term (current) drug therapy; Z88.6 Allergy status to analgesic agent; Z91.018 Allergy to other foods; I95.9 Hypotension, unspecified; E87.5 Hyperkalemia; Z91.19 Patient's noncompliance with other medical treatment and regimen

== ENCOUNTER → 2020-04-25 | Outpatient (CLI) | payer MEDICARE, MEDICAID ==
[~2020-04-25] MED LIST changes: +ELIQ2.5T PO; +KEFL250C11 PO; +KEFL500C17 PO; +OXYC1TAB23 PO; +VITA50005 PO
== END ==
LOC: M LABSMTC 10:43
PROVIDERS: ATTEND Anesthesiology
DX: Z01.818 Encounter for other preprocedural examination (principal); Z11.59 Encounter for screening for other viral diseases
CPT/HCPCS: C9803; U0003

== ENCOUNTER 2020-04-28 06:13 | Day surgery (SDC) | payer MEDICARE, MEDICAID ==
[~2020-04-28] VITALS: Ht 190.5 cm; Wt 111.1 kg
[~2020-04-28 06:13] MED LIST changes: -ELIQ2.5T PO; -KEFL250C11 PO; -OXYC1TAB23 PO
[2020-04-28] MEDS ORDERED: ceFAZolin SOD 2 GM in IV 1 EA IV ONE (06:45)
[2020-04-28] MEDS ORDERED: ISOVUE-300 61% 50ML VIAL As Ordered ONE (07:09)
[2020-04-28] MEDS ORDERED: propofoL 200 MG/20 ML VIAL As Ordered ONE ×2 (07:10→08:17)
[2020-04-28] MEDS ORDERED: LIDOCAINE 2% 100MG/5ML SDV (FOR ANES.) As Ordered ONE ×2 (07:10→10:22)
[2020-04-28] MEDS ORDERED: MIDAZOLAM INJ 2MG/2ML VIAL (J2250 PER 1MG) As Ordered ONE (07:10)
[2020-04-28] MEDS ORDERED: fentaNYL 100 MCG/2 ML INJECTION (J3010) As Ordered ONE (07:10)
[2020-04-28] MEDS ORDERED: HEPARIN SOD (PORCINE) 5000UNITS/ML VIAL (J1644 PER 1000UNITS) As Ordered ONE ×4 (07:10→10:33)
[2020-04-28] MEDS ORDERED: ONDANSETRON 4MG/2ML VIAL As Ordered ONE (07:11)
[2020-04-28] MEDS ORDERED: ONDANSETRON 4MG/2ML VIAL IV ONE (07:15)
[2020-04-28] MEDS ORDERED: ROCURONIUM BROMIDE 50 MG/5 ML VIAL As Ordered ONE (07:15)
[2020-04-28] MEDS ORDERED: NS 1,000 ML IV ONE (07:15)
[2020-04-28] MEDS ORDERED: LIDOCAINE 1% SDV 30ML VIAL As Ordered ONE (07:41)
[2020-04-28] MEDS ORDERED: ePHEDrine SULFATE 25 MG/5 ML(5MG/ML) SYRINGE As Ordered ONE (08:11)
[2020-04-28] MEDS ORDERED: PHENYLephrine HCL 500 MCG/5 ML (100MCG/ML) SYRINGE (J2370) As Ordered ONE ×2 (08:11→08:21)
[2020-04-28] MEDS ORDERED: ALBUTEROL 6.7GM INHALER **FOR ANES. CART/OMNICELL ONLY As Ordered ONE (08:11)
[2020-04-28] MEDS ORDERED: EPINEPHrine 1MG/10ML SYRINGE 1.5IN As Ordered ONE (08:11)
[2020-04-28] MEDS ORDERED: SUGAMMADEX SODIUM 500 MG/5 ML VIAL (BRIDION) As Ordered ONE (08:11)
[2020-04-28] MEDS ORDERED: PHENYLEPHRINE 10MG/ML 1ML VIAL (J2370 PER 1) As Ordered ONE ×2 (08:16→09:35)
[2020-04-28] MEDS ORDERED: BUPIVACAINE/EPIN 0.5% 30 ML VIAL As Ordered ONE (08:24)
[2020-04-28] MEDS ORDERED: METOCLOPRAMIDE INJ 10MG/2ML VIAL (J2765 PER 1) As Ordered ONE (08:26)
--- NOTE | 2020-04-28 08:48 | ECGEPIP ---
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
[2020-04-28] MEDS ORDERED: METOCLOPRAMIDE INJ 10MG/2ML VIAL (J2765 PER 1) IV PRN (11:00)
[2020-04-28] MEDS ORDERED: ONDANSETRON 4MG/2ML VIAL IV PRN (11:00)
[2020-04-28] MEDS ORDERED: NS 1,000 ML IV SCH (11:00)
[2020-04-28] MEDS ORDERED: KEFL250C11 PO (11:03)
[2020-04-28] MEDS ORDERED: ELIQ2.5T PO (11:03)
[2020-04-28] MEDS ORDERED: OXYC1TAB23 PO (11:03)
--- NOTE | 2020-04-28 11:26 | ROOPDOC ---
[facility] Report Of Operation Report of Operation DATE OF PROCEDURE: 04/28/20 PREPROCEDURE DIAGNOSES: End stage renal disease requiring AV access for hemodialysis POSTPROCEDURE DIAGNOSES: Same PROCEDURE: Right brachial axillary artegraft placement SURGEON: Kaitlin Schuler MD ANESTHESIA: General endotracheal anesthesia and local anesthesia. INDICATION FOR PROCEDURE: This is a very pleasant 54yo gentleman with ESRD on HD with longstanding LIJ permcath. Vein mapping of the bilateral upper extremities was reviewed, and I did not feel the patient had an option for an autologous AV fistula. Therefore, risks, benefits and alternatives to a right brachial axillary artegraft placement were discussed with the patient and he was agre eable to proceed. Informed consent was obtained. REPORT OF OPERATION: The patient was brought to the operating room in stable c ondition. General anesthesia was administered and he had some bronchospasm and hypotension that was managed safely with medication by our anesthesia team, and he then remained stable for the rest of the duration of the case. Antibiotics were administered without complication. His right upper extremity and axilla were prepped and draped in a sterile fashion. Ioban was placed over the skin to further minimize risk of infection. A time out was performed. An incision was made over the right brachial artery pulse just proximal to the antecubital crease. This was carried down through the subcutaneous tissue with bovie cautery. The brachial sheath was opened over the artery. The artery was skeletonized proximally and distally within the incision. Vessel loops were placed proximally and distally. An incision was made over the axillary artery pulse and carried down through the subcutaneous tissue with bovie cautery. The axillary vein was skeletonized proximally and distally with sharp dissection. A vessel loop was placed distally, and we will use a bulldog clamp proximally. The artegraft was appropriately prepared and flushed. 3000 units of heparin was given and allowed to circulate. A tunneler was used to tunnel from the brachial incision to the axillary incision. The artegraft was marked to keep orientation and then tunneled. The arterial end was beveled and narrowed to 5mm diameter opening with prolene suture. We then secured the brachial artery vessel loops and a 5 mm arteriotomy was made. The graft was anastomosed to the artery in an end to side fashion with 5-0 prolene hemostatic suture. A clamp was placed on the graft. Before the final sutures were placed, we flushed the inflow and outflow and irrigated with heparinized saline. The anastomosis was complete and good hemostasis was noted. Next, we beveled the venous end of the graft for a long anastomosis. A bulldog clamp was placed proximally on the axillary vein and the vessel loop was secured distally. A long venotomy was made and the graft was anastomosed to the vein in an end to side fashion with hemostatic 5-0 prolene suture. We flushed through the graft, and the inflow and outflow of the vein, irrigated with heparinized saline, and completed the anastomosis. Good hemostasis was noted. There was excellent flow in the graft on doppler exam. The right hand was also warm and well perfused. The incisions were irrigated with saline and the arterial incision was closed with 2-0 vicryl suture at the fascia and to approximate the deep dermal layer. The skin was closed with a running subcuticular monocryl suture. The axillary incision was closed in 3 layers with 2-0 monocryl suture, and then the deep dermal layer was approximated with interrupted 4-0 monocryl sutures. The skin was closed with a running subcuticular monocryl suture. The incisions were cleaned and dried. Mastisol and steri strips were placed along the length of the incisions. Dry gauze and tegaderms were placed over the steri strips. The patient was allowed to awaken and taken to recovery in stable condition. ESTIMATED BLOOD LOSS: Approximately 25 mL. COMPLICATIONS: None. PLAN: We will see the patient back in 1 week to check incisions. Rx for percocet, keflex, and eliquis given today. Ok to shower/bed bath but no tub baths or swimming x 2 weeks. Keep steri strips intact 7 days. Continue to use squeezeball to help with left arm circulation, but no strenuous exercise or lifting >5lbs until incisions are healed. We appreciate the opportunity to participate in the care of this patient. KAITLIN SCHULER MD Apr 28, 2020 11:26
[2020-04-28] MEDS ORDERED: NS 250 ML IV ONE (12:15)
[2020-04-28 12:45] VITALS: BP 131/61
== END 2020-04-28 13:17 | disposition home or self-care (01) ==
LOC: M SDC 06:13
PROVIDERS: ATTEND Surgery Vascular Surgery
DX: N18.6 End stage renal disease (principal)
CPT/HCPCS: 36415; 36825; 84132; 93005; C1768; J0690; J1644; J2250; J2370; J2405; J2765; J3010

== ENCOUNTER → 2020-06-07 | Outpatient (CLI) | payer MEDICARE, MEDICAID ==
[~2020-06-07] MED LIST changes: +ALTEPLASE 2MG/2ML VIAL As Ordered ONE; +APIXABAN 5 MG TAB (ELIQUIS) PO ONE; +ELIQ2.5T PO; +ISOVUE-300 61% 50ML VIAL As Ordered ONE; +KEFL250C11 PO; +LIDOCAINE 1% MDV 20ML VIAL As Ordered ONE; +MIDAZOLAM INJ 2MG/2ML VIAL (J2250 PER 1MG) As Ordered ONE; +OXYC1TAB23 PO; +ceFAZolin 1GM VIAL (J0690 PER 500MG) As Ordered ONE; +fentaNYL 100 MCG/2 ML INJECTION (J3010) As Ordered ONE; +hydrALAZINE 20MG/ML 1ML VIAL (J0360 PER 20MG) As Ordered ONE
--- NOTE | 2020-06-07 16:07 | ROOPDOC ---
[facility] Report Of Operation Report of Operation DATE OF PROCEDURE: 06/07/20 PREPROCEDURE DIAGNOSES: Thrombosed right upper extremity brachial axillary Artegraft POSTPROCEDURE DIAGNOSES: Same PROCEDURE: 1. Ultrasound-guided access right brachial axillary Artegraft antegrade and retrograde 2. Right upper extremity fistulogram and central venogram 3. TPA assisted thrombectomy right brachial axillary graft 4. Angioplasty AV graft to venous outflow with 7 x 40 [place] balloon, 8 x 40 [place] balloon, 9 x 40 [place] balloon 5. Angioplasty subclavian vein and proximal SVC with 8 x 200 [place] balloon 6. Completion venogram SURGEON: Braby Schuler MD ANESTHESIA: Local anesthesia 4 mL lidocaine. Moderate intravenous conscious se dation was supervised by Dr. Schuler. The patient was independently monitored by registered nurse assigned to the Department of radiology using automated blood pressure, EKG, and pulse oximetry. The detailed sedation record is permanently stored in the hospital information system. The following is a brief sedation record: Start time 13:34, stop time 15:14, Versed 2.5 mg IV, fen tanyl 125 g IV, heparin 6000 units IV, Ancef 1 g IV. CONTRAST: 56 mL Isovue-300 INDICATION FOR PROCEDURE:. Pleasant 54-year-old gentleman with end-stage renal disease currently dialyzing with a long-standing PermCath. The patient had a right brachial axillary Artegraft placement, and initially the graft had excellent flow in a great thrill, but 2 weeks ago flow ceased and on evaluation we found the graft to be thrombosed. I discussed the risks benefits and alternatives to an attempt at a declot procedure for his right upper extremity graft with the patient. He is agreeable to proceed. Informed consent was obtained. INTERPRETATION: 1. Ultrasound reveals thrombosis of the graft with flow patent through the brachial artery and the axillary vein. Ultrasound at the end of the case reveals color-flow throughout the graft with no residual thrombosis. Please see imaging. 2. Right upper extremity fistulogram reveals thrombosis of the entire graft with suspected mild stenosis at the venous anastomosis with the axillary vein and possible mid subclavian stenosis near the thoracic outlet. 3. Fistulograms throughout the procedure helped identify areas of residual thrombus to allow us to eliminate the clot. Final imaging confirmed widely patent flow through the AV anastomosis, within the brachial artery and distally, as well as through the graft into the central system. No residual thrombus noted . 4. Angioplasty of the venous anastomosis was sequentially larger balloons provided brisk outflow with an excellent thrill in the graft. Angioplasty of the central veins including the subclavian vein revealed widely patent flow back to the central system with no significant stenosis. No extravasation or significant residual stenosis noted. REPORT OF OPERATION: Patient was brought to the angiographic suite in stable condition. His right upper extremity was prepped and draped in a sterile fashion. A timeout was performed. Antibiotics and sedation were administered without complication. Ultrasound was used to examine the graft as well as the arterial anastomosis and the venous anastomosis. Please see interpretation above. We then used ultrasound to gain access to the graft and antegrade fashion near the AV anastomosis with a microneedle. Prior to this we anesthetized the skin with local anesthesia. We passed a wire through the access under fluoroscopic guidance the needle was removed. A 4 [place] sheath was placed and flushed with saline. We then performed a fistulogram and central venogram. Please see interpretation above. We then passed a Glidewire into the central system, exchange the sheath for 6 [place] sheath and flushed the sheath with saline, and utilized a 7 x 40 balloon to angioplasty across the venous anastomosis to improve outflow. We then utilized ultrasound to gain retrograde access near the venous anastomosis after anesthetizing the skin. A wire was passed through this access the needle was removed and a 4 [place] sheath was placed and flushed with saline. A wire was then passed towards the arterial anastomosis. Catheters were introduced through the sheath and 12 mg of tPA was administered across the graft to dissolve the clot. This was massaged and m anually over the arm. We then utilized a 7 balloon for the arterial anastomosis and an 8 balloon for the venous anastomosis in order to do a push pull to remove any residual thrombus from the graft. We did this 6 or 7 times until all the thrombus had resolved. We then did additional venous angioplasty with an 8 x 40 [place] balloon and a 9 x 40 [place] balloon to improve outflow for the graft. We also did a three-minute inflations at the superior vena cava into the SVC with an 8 x 200 [place] balloon to make sure there was no stenosis in the outflow. Following this there was an excellent thrill in the graft, good flow through the brachial artery into the graft through the graft out through into the axillary vein and the central system. No residual thrombus was noted. This concluded the procedure. [id number] Prolene sutures were placed at the sheath sites and issues were removed. Steri-Strips and sterile dressings were applied and pressure was held for good hemostasis. I then utilized ultrasound to arik the graft on the skin at the nurses can use it for dialysis tomorrow. ESTIMATED BLOOD LOSS: Approximately 5 mL. COMPLICATIONS: None. PLAN: Okay to resume home diet. The graft has been marked and the skin and it is okay to use for dialysis. If the nurses are able to use it successfully, we can remove the PermCath, but since the graft thrombosed so soon after placement, I'm worried about long-term patency. We will see how the patient does tomorrow. Okay to resume home medications. We will increase his eliquis dose from 2.5 mg twice a day to 5 mg twice a day to decrease the risk of thrombosis. I've explained this to him and his daughter and he is agreeable. He will receive a dose of 5 mg eliquis in recovery today. We appreciate the opportunity to participate in the care of this patient. BARBY SCHULER MD Jun 07, 2020 16:07
[2020-06-07 16:20] VITALS: BP 175/85
== END ==
LOC: M IRPRO 11:43
PROVIDERS: ATTEND Surgery Vascular Surgery
DX: T82.868A Thrombosis due to vascular prosthetic devices, implants and grafts, initial encounter (principal); X58.XXXA Exposure to other specified factors, initial encounter; N18.6 End stage renal disease; I12.0 Hypertensive chronic kidney disease with stage 5 chronic kidney disease or end stage renal disease; E11.22 Type 2 diabetes mellitus with diabetic chronic kidney disease; I89.0 Lymphedema, not elsewhere classified; J45.909 Unspecified asthma, uncomplicated; E66.9 Obesity, unspecified; Z79.01 Long term (current) use of anticoagulants; Z79.4 Long term (current) use of insulin; Z79.899 Other long term (current) drug therapy; Z88.6 Allergy status to analgesic agent; Z91.018 Allergy to other foods; Z91.09 Other allergy status, other than to drugs and biological substances; Z99.2 Dependence on renal dialysis
CPT/HCPCS: 36905; 36907; 99152; 99153; C1725; C1769; C1887; C1894; J0690; J1644; J2250; J2997; J3010; Q9967

== ENCOUNTER → 2020-07-05 | Outpatient (CLI) | payer MEDICARE, MEDICAID ==
[~2020-07-05] MED LIST changes: +ALLO10TA PO; -ALTEPLASE 2MG/2ML VIAL As Ordered ONE; +AMIT25TA PO; +AMLO1TAB24 PO; -AMLO5TAB6 PO; -APIXABAN 5 MG TAB (ELIQUIS) PO ONE; +CLOP75TA2 PO; +ELIQ5TAB; +ELIQ5TAB PO; +NORV5TAB PO; +ONDANSETRON 4MG/2ML VIAL As Ordered ONE; +PLAV1TAB2 PO; -VITA1TAB23 PO; +VITA250T20 PO; -ceFAZolin 1GM VIAL (J0690 PER 500MG) As Ordered ONE; -hydrALAZINE 20MG/ML 1ML VIAL (J0360 PER 20MG) As Ordered ONE
--- NOTE | 2020-09-30 17:46 | ROOPDOC ---
[facility] Report Of Operation Report of Operation DATE OF PROCEDURE: 07/05/20 PREPROCEDURE DIAGNOSES: Increased pulsatility and bleeding right brachial axillary AV graft POSTPROCEDURE DIAGNOSES: Same. PROCEDURE: 1. Ultrasound-guided access right AV graft 2. Fistulogram and central venogram 3. Angioplasty graft axillary vein anastomosis and subclavian of the thoracic outlet with 8 x 200 Weston balloon and 9 x 40 Weston balloon 4. Completion venogram SURGEON: Kaitlin Schuler MD ANESTHESIA: Local anesthesia 1 mL lidocaine. Moderate intravenous conscious sedation was administered by Dr. Schuler. The patient was independently monitored by registered nurse assigned to the Department of radiology using automated blood pressure, EKG, and pulse oximetry. The details sedation record is permanently stored in the hospital information system. The following is a brief sedation record: Start time 11:16, stop time 11:42, Versed 0.5 mg IV, fentanyl 25 g IV, Zofran 4 mg IV. CONTRAST: 20 mL Isovue-300 INDICATION FOR PROCEDURE: This a very pleasant 55-year-old gentleman with increased pulsatility and bleeding and increased venous pressures in his right brachial axillary graft. Risks benefits alternatives to a fistulogram potential intervention were explained to the patient needs agreeable to proceed. Informed consent was obtained. INTERPRETATION: 1. The graft arterial anastomosis is widely patent on ultrasound. 2. There is widely patent inflow through the graft but a 40% stenosis at the graft axillary venous anastomosis and also a 50% stenosis at the subclavian vein at the thoracic outlet. Otherwise, the central veins are widely patent. 3. After angioplasty of the graft axillary vein stenosis in the subclavian vein stenosis with an 8 x 200 Weston balloon, there was still 20-30% residual stenoses in both areas, which was less than 10% after re-angioplasty with a 9 x 40 Weston balloon for three-minute inflations in both areas. No extravasation was noted. There was excellent thrill and the graft and no pulsatility after angioplasty. REPORT OF OPERATION: Patient was brought the angiographic suite in stable condition. His right upper extremity was prepped and draped in a sterile fashion. A timeout was performed. Local anesthesia was administered to the skin and subcutaneous tissue over the right AV graft. Ultrasound was used to examine the graft brachial artery anastomosis it was found to be widely patent. We accessed the graft under ultrasound guidance with a microneedle and a wire was passed through this access and a 4 Danish sheath was placed and flushed with saline. A fistulogram and central venogram were performed. Please see interpretation above. A Glidewire was advanced through the sheath and this was exchanged for a 7 Danish sheath and flushed with saline. We then advanced an 8 x 200 Weston balloon across both areas of stenosis for three-minute inflations. Following that there was still some residual stenosis that was flow-limiting we upsized to 9 x 40 Weston balloon and did a second angioplasty for three-minute inflations. Following this there was no significant residual stenosis, an excellent thrill and the graft, and rapid flow back to the central system. No extravasation was noted. We then removed the wire and balloon and a Prolene [id number] suture was placed at the exit site of the sheath and the sheath was removed. Pressure was held for 3 minutes for good hemostasis and sterile dressings were applied. The patient was then taken to recovery in stable condition. He tolerated the procedure and the sedation well. ESTIMATED BLOOD LOSS: Approximately 3 mL. COMPLICATIONS: None PLAN: It is okay to use the AV graft for dialysis. It is okay to resume home diet and medications. We appreciate the opportunity to participate the care of this patient. KAITLIN SCHULER MD Sep 30, 2020 17:46
== END ==
LOC: M IRPRO 08:00 → M RADPRO 08:00
PROVIDERS: ATTEND Surgery Vascular Surgery
DX: T82.590A Other mechanical complication of surgically created arteriovenous fistula, initial encounter (principal); N18.6 End stage renal disease; E11.22 Type 2 diabetes mellitus with diabetic chronic kidney disease; I12.0 Hypertensive chronic kidney disease with stage 5 chronic kidney disease or end stage renal disease; J45.909 Unspecified asthma, uncomplicated; X58.XXXA Exposure to other specified factors, initial encounter; Z79.01 Long term (current) use of anticoagulants; Z79.4 Long term (current) use of insulin; Z79.899 Other long term (current) drug therapy; Z99.2 Dependence on renal dialysis; Z91.018 Allergy to other foods; Z91.09 Other allergy status, other than to drugs and biological substances
CPT/HCPCS: 36902; 99152; 99153; C1725; C1769; C1894; J1644; J2250; J2405; J3010; Q9967

== ENCOUNTER 2020-07-18 11:00 | Inpatient (IN) | payer MEDICARE, MEDICAID ==
[~2020-07-18] VITALS: Ht 190.5 cm; Wt 120.6 kg
[~2020-07-18 11:00] MED LIST changes: -ALLO10TA PO; -AMIT25TA PO; -CLOP75TA2 PO; -ELIQ5TAB; -ELIQ5TAB PO; -ISOVUE-300 61% 50ML VIAL As Ordered ONE; -LIDOCAINE 1% MDV 20ML VIAL As Ordered ONE; -MIDAZOLAM INJ 2MG/2ML VIAL (J2250 PER 1MG) As Ordered ONE; -NORV5TAB PO; -ONDANSETRON 4MG/2ML VIAL As Ordered ONE; -PLAV1TAB2 PO; -fentaNYL 100 MCG/2 ML INJECTION (J3010) As Ordered ONE
[2020-07-18] MEDS ORDERED: ELIQ5TAB (11:09)
[2020-07-18] MEDS ORDERED: ACETAMINOPHEN 325 MG TAB PO ONE (12:00)
[2020-07-18] MEDS ORDERED: ONDANSETRON 4 MG ORAL DISINTEGRATING TAB PO ONE (12:00)
[2020-07-18 12:21] LABS: BASO % 0.2 % (0.0-1.0); EOS # 0.1 10^3/uL (0.0-0.5); EOS % 0.4 % (0.0-3.0); HEMATOCRIT 29.5 % (42.0-52.0); HEMOGLOBIN 9.3 g/dl (13.5-17.5); LYMPH # 1.5 10^3/uL (1.5-5.0); LYMPH % 8.6 % (24.0-44.0); MEAN CORPUSCULAR HGB CONC 31.5 g/dl (32.0-36.5); MEAN CORPUSCULAR VOLUME 95.2 fl (80.0-96.0); MONO # 1.5 10^3/uL (0.0-0.8); MONO % 8.9 % (0.0-5.0); NEUTROPHILS # 13.9 10^3/uL (1.5-8.5); NEUTROPHILS % 81.2 % (36.0-66.0); PLATELET COUNT, AUTOMATED 277 10^3/uL (150-450); WHITE BLOOD COUNT 17.1 10^3/uL (4.0-10.0)
[2020-07-18 12:58] LABS: C REACTIVE PROTEIN QUANTITATIV 32.3 MG/DL (0.00-0.30); CREATININE FOR GFR 9.28 MG/DL (0.70-1.30); GLOMERULAR FILTRATION RATE 6.4 (>56); POTASSIUM SERUM 5.1 MEQ/L (3.5-5.1)
[2020-07-18] MEDS ORDERED: VANCOMYCIN HCL 1,000 MG, VIAL MATE ADAPTER 1 EACH in D5W 250 ML IV ONE ×2 (13:00→20:00)
[2020-07-18 13:11] LABS: ERYTHROCYTE SEDIMENTATION RATE 126 mm/hr (0-20)
--- NOTE | 2020-07-18 13:36 | REPVR ---
PROCEDURE INFORMATION: Exam: XR Left Foot Complete Exam date and time: 07/18/2020 1:18 PM Age: 54 years old Clinical indication: Other: Diabetic foot TECHNIQUE: Imaging protocol: XR Left foot. Views: 3 or more views. COMPARISON: CR Foot, complete 06/16/2020 9:45 PM FINDINGS: Bones/joints: Apparent amputation of the 2nd distal phalanx. Chronic ankylosis of the 2nd PIP joint. Mild degenerative change of the 1st IP joint. Mild degenerative change of the midfoot. No definite radiographic evidence of acute osteomyelitis. No acute fracture. Soft tissues: Soft tissue gas within the 1st digit. Ulceration of the soft tissues at the plantar aspect of the 1st MTP joint. No radiopaque foreign body. Diffuse soft tissue swelling. Vasculature: Scattered vascular calcifications. IMPRESSION: 1. Ulceration of the soft tissues at the plantar aspect of the 1st MTP joint. Soft tissue gas within the 1st digit. 2. No definite radiographic evidence of acute osteomyelitis. Consider further evaluation with MRI. Electronically signed by: Kelsey Don On 07/18/2020 13:36:48 PM
--- NOTE | 2020-07-18 13:38 | REPVR ---
PROCEDURE INFORMATION: Exam: XR Chest, 1 View Exam date and time: 07/18/2020 1:18 PM Age: 54 years old Clinical indication: Fever TECHNIQUE: Imaging protocol: XR of the chest Views: 1 view. COMPARISON: CR Chest, 1 view 04/15/2020 5:40 PM FINDINGS: Tubes, catheters and devices: Central venous catheter tip projects over the cavoatrial junction. Lungs: Unremarkable. No consolidation. Pleural space: The left costophrenic angle was not fully imaged. No appreciable pleural effusion. No pneumothorax. Heart/Mediastinum: Unremarkable. No cardiomegaly. Bones/joints: Unremarkable. IMPRESSION: No acute cardiopulmonary abnormality is identified. Electronically signed by: Kelsey Don On 07/18/2020 13:38:15 PM
[2020-07-18 13:57] LABS: ALBUMIN 2.6 GM/DL (3.2-5.2); BILIRUBIN,DIRECT 0.1 MG/DL (0.0-0.2); BILIRUBIN,TOTAL 1.2 MG/DL (0.2-1.0); THYROID STIMULATING HORMONE 2.15 uIU/ML (0.358-3.740); TOTAL PROTEIN 8.5 GM/DL (6.4-8.2)
[2020-07-18] MEDS ORDERED: DEXTROSE 50% 50 ML SYRINGE IV PRN (17:15)
[2020-07-18] MEDS ORDERED: GLUCOSE 4GM CHEW TABLET PO PRN (17:15)
[2020-07-18] MEDS ORDERED: ALBUTEROL 90 MCG/ACT 8GM HFA INHALER INH PRN (17:15)
[2020-07-18] MEDS ORDERED: VANCOMYCIN HCL 1,000 MG, VIAL MATE ADAPTER 1 EACH in D5W 250 ML IV SCH (17:15)
[2020-07-18] MEDS ORDERED: HEPARIN SOD (PORCINE) 5000UNITS/ML 1ML VIAL/SYRINGE SC SCH (17:15)
[2020-07-18] MEDS ORDERED: GLUCAGON INJ 1MG VIAL SC PRN (17:15)
[2020-07-18] MEDS ORDERED: HEPARIN SOD (PORCINE) 5000UNITS/ML 1ML VIAL/SYRINGE IV PRN (18:30)
[2020-07-18] MEDS ORDERED: HEPARIN DRIP 25,000 UNITS in IV 1 EA IV SCH (18:30)
--- NOTE | 2020-07-18 18:42 | HPEPDOC ---
[facility] Medical History & Physical Date of Admission Jul 18, 2020 Date of Service: Jul 18, 2020 Other Provider PCP- Abdiel Porras Attending Physician: LIA SWAN MD History and Physical CHIEF COMPLAINT: Pain in the left leg HPI- The patient is a 54 YO Male who presented to the emergency department with the chief complaint of severe, constant, non radiating, shooting pain in the left calf with no aggravating and relieving factors for one day. He has experienced a similar presentation recurrently many times before. He also has a subsequent history of vomiting whatever he eats, for the same time period. He reports no fevers( did not check for it). He has no history of shortness of breath, PND, Orthopnea, no history of trauma PAST MEDICAL- 1. ESRD on hemodialysis MWF 2. Insulin-dependent diabetes mellitus. 3. Chronic Asthma 4. Paroxysmal Atrial flutter 5. Chronic Hypertension 6. Diastolic CHF. 7. CAD- hx of NSTEMI 8. Pulmonary hypertension 9. Peripheral vascular disease status post stent placement in femoral artery 10. History of non healing lower extremity wounds, lower extremity osteomyelitis / Status post left lower extremity wound VAC 11. Chronic venous stasis changes and lymphedema of both his lower extremities. 12. Obesity PAST SURGICAL- Cholecystectomy -tonsillectomy - left knee reconstruction repair -Previous wound debridement on the left foot FAMILY- Unknown SOCIAL- Non smoker, No EtOH, No illicit use of drugs OCCUPATION- On Disability ROS- No travel, no diarrhea, constipation, abdominal pain, no difficulty micturition, no ambulation issues VITALS- See below PHYSICAL EXAM- The patient looks uncomfortable at the moment, sitting on his hospital bed He is alert, oriented to time place and person. HEENT- AT/NC. No discharge , no scleral icterus, pallor, cyanosis NECK- No LAD , No Swelling, No Thyromegaly CVS: Normal heart sounds , no murmurs. On Monitor, patient's rate is tachycardic. Lungs: Normal B/L breath sounds , no wheezing/rhonchi/crackles heard Upper extremities: Normal, regular pulses. Lower extremities: Feeble popliteal pulse, Dorsalis pedis artery pulse not appreciated The LL extremity looks red inflamed, tender, with excoriations, dryness, scaling and bleeding ulcers. There is a 5-6 mm dry necrotic wound , on the plantar surface. Neuro-UE: The sensations are intact with good motor strength LE: The motor strength cannot be assessed in the left leg because of pain. Rt leg has good motor strength Sensory deficit noted along the distal plantar and dorsal part of the foot( left and right) The left great toe was cooler as compared to the other toes. ASSESSMENT AND PLAN: 54 YO M with Insulin dependant Type 2 Diabetes Mellitus and ESRD on Hemodialysi s, presents to the Emergency Department with LLE pain found to have leucocytosis, Increased acute phase reactants, fever, tachycardia concerning for Acute limb ischemia vs Osteomyelitis vs Cellulitis vs DVT. PLAN: 1> Left lower leg swelling: To rule out Acute limb ischemia- Arterial Duplex Ultrasound was ordered- result pending. To rule out Osteomyelitis - MRI of the left foot was ordered- result pending To rule out DVT - Venous Doppler Ultrasound was ordered- result pending For the suspicion of Cellulitis, Antibiotics ( Zocyn +Vancomycin) started-dose adjusted for renal failure by pharmacy. For DVT prophylaxis and concern for acute limb ischemia, pt was started on a Heparin drip Podiatry was consulted ( probable debridement of the wound will be done) Wound care and vascular surgery was also consulted 2>ESRD: Nephrology ( Dr Shaw) was consulted. Recommendations appreciated 3>Type 2 Diabetes Mellitus: Hb A1c ordered to monitor the blood glucose control. Sliding scale insulin. 4>Asthma: Well controlled . Continue home medications. LABORATORY DATA: See below. IMAGING: X-Ray left foot : 1. Ulceration of the soft tissues at the plantar aspect of the 1st MTP joint. Soft tissue gas within the 1st digit. 2. No definite radiographic evidence of acute osteomyelitis. Consider further evaluation with MRI MICROBIOLOGY: Please see below. Vital Signs Vital Signs Date Time Temp Pulse Resp B/P (MAP) Pulse Ox O2 Delivery O2 Flow Rate FiO2 07/18/20 17:28 74 22 131/61 (84) 96 Room Air 07/18/20 14:57 100.5 Laboratory Data Labs 24H Laboratory Tests 2 07/18/20 11:45: Immature Granulocyte % (Auto) 0.7, Neutrophils (%) (Auto) 81.2H, Lymphocytes (%) (Auto) 8.6L, Monocytes (%) (Auto) 8.9H, Eosinophils (%) (Auto) 0.4, Basophils (%) (Auto) 0.2, Neutrophils # (Auto) 13.9H, Lymphocytes # (Auto) 1.5, Monocytes # (Auto) 1.5H, Eosinophils # (Auto) 0.1, Basophils # (Auto) 0.0, Nucleated Red Blood Cells % (auto) 0.1H, Erythrocyte Sedimentation Rate 126H, Anion Gap 7L, Glomerular Filtration Rate 6.4L, Calcium Level 9.0, Total Bilirubin 1.2H, Direct Bilirubin 0.1, Aspartate Amino Transf (AST/SGOT) 58H, Alanine Aminotransferase (ALT/SGPT) 27, Alkaline Phosphatase 135H, C-Reactive Protein, Quantitative 32.30H, YK-Jcf-C-Type Natriuretic Peptide 7442H, Total Protein 8.5H, Albumin 2.6L, Albumin/Globulin Ratio 0.4, Thyroid Stimulating Hormone (TSH) 2.150 CBC/BMP Laboratory Tests 07/18/20 11:45 Microbiology Microbiology 07/18/20 Wound Culture, Received Pending 07/18/20 Blood Culture, Received Pending 07/18/20 Blood Culture, Received Pending Home Medications Scheduled Acetaminophen (Acetaminophen) 500 Mg Tablet, 1,000 MG PO TID Allopurinol (Allopurinol) 100 Mg Tablet, 100 MG PO DAILY Allopurinol (Allopurinol) 100 Mg Tablet, 100 MG PO DAILY Amitriptyline HCl (Amitriptyline HCl) 25 Mg Tablet, 25 MG PO QHS Amlodipine Besylate (Norvasc) 5 Mg Tablet, 5 MG PO DAILY Amlodipine Besylate (Amlodipine Besylate) 5 Mg Tablet, 5 MG PO DAILY Apixaban (Eliquis) 5 Mg Tablet, 5 MG BID Apixaban (Eliquis) 5 Mg Tablet, 5 MG PO BID Calcium Acetate (Calcium Acetate) 667 Mg Tablet, 667 MG PO TID with meals Calcium Acetate (Calcium Acetate) 667 Mg Capsule, 667 MG PO WM Carvedilol (Carvedilol) 6.25 Mg Tablet, 6.25 MG PO BID Carvedilol (Carvedilol) 6.25 Mg Tablet, 6.25 MG PO BID Clopidogrel Bisulfate (Plavix) 75 Mg Tablet, 75 MG PO DAILY Clopidogrel Bisulfate (Clopidogrel) 75 Mg Tablet, 75 MG PO DAILY Fluticasone Propion/Salmeterol (Advair Hfa 230-21 Mcg Inhaler) 12 Gm Hfa.aer.ad, 2 PUFF INH RBID Insulin Aspart (Novolog Flexpen) 100 Unit/Ml Inj, 1 DOSE SC ACHS PER SLIDING SCALE Insulin Detemir (Levemir) 100 Unit/1 Ml Vial, 36 UNITS SC BID hold for finger stick less than 100 Sucroferric Oxyhydroxide (Velphoro) 500 Mg Tab.chew, 500 MG PO WM Torsemide (Torsemide) 20 Mg Tablet, 40 MG PO DAILY Torsemide (Torsemide) 20 Mg Tablet, 40 MG PO DAILY Scheduled PRN Albuterol Sulfate (Ventolin Hfa) 108 Mcg/Act Aer, 2 PUFF INH Q4H PRN for SHORTNESS OF BREATH Fluticasone Propion/Salmeterol (Advair Hfa 230-21 Mcg Inhaler) 12 Gm Hfa.aer.ad, 2 PUFF INH BID PRN for SOB/WHEEZING Allergies Coded Allergies: aspirin (Verified Allergy, Unknown, UNKNOWN REACTION A CHILD, 08/01/20) TAKES IBUPROFEN AT HOME garlic (Verified Adverse Reaction, Intermediate, syncope, 04/21/20) silver (Verified Adverse Reaction, Intermediate, angulo, 04/21/20) A-FIB/CHADSVASC A-FIB History Current/History of A-Fib/PAF?: Yes Current PO Anticoag Therapy: Yes GME ATTESTATION GME ATTESTATION My faculty preceptor for this patient encounter was physically present during the encounter and was fully available. All aspects of the patient interview, examination, medical decision making process, and medical care plan development were reviewed and approved by the faculty preceptor. The faculty preceptor is aware and concurs with the plan as stated in the body of this note and will attest to such by his/her cosignature. ATTENDING NOTE Patient seen and examined independently. Agree with resident's note. Al Rosenberg MD Jul 18, 2020 18:42 LIA SWAN MD Aug 10, 2020 08:06
[2020-07-18] MEDS: HumaLOG INSULIN (NovoLOG) PER UNIT SC SCH ×2 (18:57→23:50)
[2020-07-18] MEDS: ADVAIR HFA 230/21MCG INHALER INH SCH (20:50)
--- NOTE | 2020-07-18 21:40 | REPVR ---
PROCEDURE INFORMATION: Exam: MR Left Lower Extremity Other Than Joint Without Contrast; Foot Exam date and time: 07/18/2020 8:46 PM Age: 54 years old Clinical indication: Cellulitis and other: Ulcer; Left; Patient HX: Ulcer by ball of foot; Additional info: Concern for osteo TECHNIQUE: Imaging protocol: MR of the Left lower extremity without contrast. Exam focused on the foot. COMPARISON: MRI-Foot W/O FOL WITH 12/19/2015 1:04 PM FINDINGS: Bones and cartilage: There is no evidence of destructive change of bone to suggest osteomyelitis. Joint spaces: There is a small amount of joint fluid TENDONS: Flexor tendons of foot: At the base of the 1st metatarsal there is a large ulceration of the skin measuring 2 cm with a small amount of fluid surrounding the flexor pollicis tendon and evidence of tendinitis. Muscles: There is bright signal in the intensity edema throughout the flexor digitorum brevis muscle and the abductor hallucis muscle consistent with myositis. There is a 8 mm oval collection of fluid within the hallucis brevis muscle at the level of the navicular and flexor hallucis longus tendon consistent with a small abscess. Soft tissues: There is soft tissue swelling through the subcutaneous layer dorsal aspect of the left foot. IMPRESSION: 1. Ulceration plantar aspect of the foot at the base of the 1st metatarsal. 2. Bright signal intensity edema of the flexor digitorum brevis muscle and the abductor hallucis muscle consistent with myositis. 3. 8 mm small oval abscess within the flexor hallucis brevis muscle at the navicular and flexor hallucis tendon junction. Series 601 image 1 frame 32. 4. Small amount of fluid surrounding the flexor hallucis tendon at the ulceration Electronically signed by: Clinton Russo On 07/18/2020 21:40:05 PM
[2020-07-18] MEDS ORDERED: VANCOMYCIN INTERMITTENT/PULSE DOSING BY CLINICAL PHARMACIST PER DOSING PROTOCOL XX SCH (21:45)
[2020-07-18] MEDS ORDERED: PIPERACILLIN/TAZOBACTAM SOD 2.25 GM in D5W MINI-BAG PLUS 50 ML IV SCH (22:00)
--- NOTE | 2020-07-18 22:04 | REPVR ---
PROCEDURE INFORMATION: Exam: US Duplex Lower Extremity Veins, Bilateral Exam date and time: 07/18/2020 9:53 PM Age: 54 years old Clinical indication: Pain; Edema, localized; Lower extremity, bilateral; Leg, lower; Additional info: Calf pain TECHNIQUE: Imaging protocol: Real-time duplex ultrasound of the extremities with 2-D charles scale, color Doppler flow and spectral waveform analysis with image documentation. Complete exam focused on the bilateral lower extremity veins. COMPARISON: US BILATERAL VEIN MAPPING PRE AVF 02/18/2020 12:20 PM FINDINGS: Right deep veins: Unremarkable. The common femoral, femoral, proximal profunda femoral and popliteal veins are patent without thrombus. Normal Doppler waveforms. Normal compressibility and/or augmentation response. Right superficial veins: Saphenofemoral junction is patent without thrombus. Left deep veins: Unremarkable. The common femoral, femoral, proximal profunda femoral and popliteal veins are patent without thrombus. Normal Doppler waveforms. Normal compressibility and/or augmentation response. Left superficial veins: Saphenofemoral junction is patent without thrombus. Soft tissues: Unremarkable. IMPRESSION: No evidence of deep vein thrombosis. Electronically signed by: Clinton Russo On 07/18/2020 22:04:53 PM
[2020-07-18 22:05] VITALS: BP 131/77
[2020-07-18] MEDS: ONDANSETRON 4MG/2ML VIAL IV PRN (23:11)
[2020-07-18] MEDS: CARVedilol 6.25 MG TAB PO SCH (23:49)
[2020-07-18] MEDS: ACETAMINOPHEN TAB 650MG DOSE (2X325MG) PO PRN (23:49)
[2020-07-18] MEDS: LEVEMIR (INSULIN DETEMIR) 1 UNITS/0.01ML SC SCH (23:50)
[2020-07-19] MEDS ORDERED: ACETAMINOPHEN 325 MG TAB PO ONE (01:45)
[2020-07-19] MEDS ORDERED: CLINDAMYCIN 600 MG in IV 1 EA IV ONE (03:00)
[2020-07-19 06:00] VITALS: BP 145/80
[2020-07-19] MEDS: ADVAIR HFA 230/21MCG INHALER INH SCH ×2 (07:23→20:00)
[2020-07-19 07:27] LABS: HEMATOCRIT 25.1 % (42.0-52.0); MEAN CORPUSCULAR HEMOGLOBIN 29.6 pg (27.0-33.0); MEAN CORPUSCULAR HGB CONC 31.9 g/dl (32.0-36.5); PLATELET COUNT, AUTOMATED 211 10^3/uL (150-450); WHITE BLOOD COUNT 10.2 10^3/uL (4.0-10.0)
[2020-07-19] MEDS: CALCIUM ACETATE 667MG GELCAP PO SCH ×3 (08:00→18:00)
[2020-07-19] MEDS: SUCROFERRIC OXYHYDROXIDE 500MG CHEW TAB (VELPHORO) PO SCH ×3 (08:00→18:00)
[2020-07-19] MEDS: ONDANSETRON 4MG/2ML VIAL IV PRN (08:05)
[2020-07-19 08:24] LABS: ALBUMIN 2.2 GM/DL (3.2-5.2); CALCIUM LEVEL 8.4 MG/DL (8.5-10.1); GLOMERULAR FILTRATION RATE 5.9 (>56); PERCENT SATURATION 16.3 % (19.7-50.0); PHOSPHORUS LEVEL 5.1 MG/DL (2.5-4.9); POTASSIUM SERUM 4.1 MEQ/L (3.5-5.1); VANCOMYCIN RANDOM 22.6 UG/ML
[2020-07-19] MEDS: HumaLOG INSULIN (NovoLOG) PER UNIT SC SCH ×4 (08:52→21:00)
[2020-07-19] MEDS: LEVEMIR (INSULIN DETEMIR) 1 UNITS/0.01ML SC SCH ×2 (09:00→21:00)
--- NOTE | 2020-07-19 09:09 | CR.PDOC ---
General Date of Consultation: Jul 19, [address] Schuler. HISTORY OF PRESENT ILLNESS: The patient is a 54-year-old male with h/o PAD and chronic venous insufficiency with previous right lower extremity angiogram with angioplasty and stenting of his right SFA 11/06/[address] Dave. The pt is also known to have h/o ESRD, on HD status post right brachial axillary graft as per Dr. Schuler 04/28/20. S/P TPA assisted thrombectomy right brachial axillary graft 06/07/[address] Schuler, on Eliquis AC. The pt presented to ED with LLE pain, swelling, redness and is admitted with Left foot wound, Vascular Surgery consulted. ALLERGIES: Please see below. HOME MEDICATIONS: Please see below. PAST MEDICAL 1. ESRD on hemodialysis MWF 2. Insulin-dependent diabetes mellitus. 3. Chronic Asthma 4. Paroxysmal Atrial flutter 5. Chronic Hypertension 6. Diastolic CHF. 7. CAD- hx of NSTEMI 8. Pulmonary hypertension 9. Peripheral vascular disease status post stent placement in femoral artery 10. History of non healing lower extremity wounds, lower extremity osteomyelitis / Status post left lower extremity wound VAC 11. Chronic venous stasis changes and lymphedema of both his lower extremities. 12. Obesity PAST SURGICAL Cholecystectomy tonsillectomy left knee reconstruction repair Previous wound debridement on the left foot FAMILY HTN SOCIAL Non smoker REVIEW OF SYSTEMS: Pt states feeling nauseated, generally feels unwell today, otherwise as noted in HPI. PHYSICAL EXAMINATION: VITAL SIGNS: Please see below. GENERAL APPEARANCE: Sleeping in bed. HEENT: MMM RESPIRATORY: CTA CARDIOVASCULAR:RRR ABDOMEN: soft, NT EXTREMITIES: dry scaled skin BLEs, 3 cm ulcer pretibial area RLE, black ulceration approx 2 cm diameter base of 1 MTP LLE. foul smelling. Left great toe dark discoloration, diffuse erythema extending to mid pretibial area. Faint monophasic DP LLE, mono PT. RLE with monophasic doppler signal. BLE edema noted. NEUROLOGICAL: no focal deficits PSYCHIATRIC: A/O x 3 LABORATORY DATA: Please see below. ASSESSMENT/PLAN: PAD. LLE wound/cellulitis. Abx as per Hospitalist. Wound care as per Podiatry. Arterial US pending at this time, to be done this AM as per US dept. Await results. pending review, Will likely need to proceed with LLE angiogram, discussed this with the pt. Informed consent is placed on the chart. ESRD/HD. Hd as per Nephrology. status post right brachial axillary graft as per Dr. Schuler 04/28/20. S/P TPA assisted thrombectomy right brachial axillary graft 06/07/[address] Schuler. Eliquis 5 mg BID as outpt, currently on HOLD. Vital Signs/I&O Vital Signs Date Time Temp Pulse Resp B/P (MAP) Pulse Ox O2 Delivery O2 Flow Rate FiO2 07/19/20 06:00 98.8 81 16 145/80 (101) 93 Room Air I&O- Last 24 Hours up to 6 AM 07/19/20 06:00 Intake Total 630 ml Output Total 600 ml Balance 30 ml Laboratory Data Labs 24H Laboratory Tests 2 07/18/20 11:45: Immature Granulocyte % (Auto) 0.7, Neutrophils (%) (Auto) 81.2H, Lymphocytes (%) (Auto) 8.6L, Monocytes (%) (Auto) 8.9H, Eosinophils (%) (Auto) 0.4, Basophils (%) (Auto) 0.2, Neutrophils # (Auto) 13.9H, Lymphocytes # (Auto) 1.5, Monocytes # (Auto) 1.5H, Eosinophils # (Auto) 0.1, Basophils # (Auto) 0.0, Nucleated Red Blood Cells % (auto) 0.1H, Erythrocyte Sedimentation Rate 126H, Anion Gap 7L, Glomerular Filtration Rate 6.4L, Calcium Level 9.0, Total Bilirubin 1.2H, Direct Bilirubin 0.1, Aspartate Amino Transf (AST/SGOT) 58H, Alanine Aminotransferase (ALT/SGPT) 27, Alkaline Phosphatase 135H, C-Reactive Protein, Quantitative 32.30H, YN-Nec-E-Type Natriuretic Peptide 7442H, Total Protein 8.5H, Albumin 2.6L, Albumin/Globulin Ratio 0.4, Thyroid Stimulating Hormone (TSH) 2.150 07/18/20 11:48: Estimated Mean Plasma Glucose 183H, Hemoglobin A1c 8.0 07/18/20 19:01: Coronavirus (COVID-19)(PCR) NEGATIVE 07/18/20 23:10: Lactic Acid Level 2.4*H 07/18/20 23:27: Activated Partial Thromboplast Time 66.0H 07/19/20 06:00: Nucleated Red Blood Cells % (auto) 0.0 07/19/20 06:55: Activated Partial Thromboplast Time 55.8H, Anion Gap 9, Glomerular Filtration Rate 5.9L, Calcium Level 8.4L, Phosphorus Level 5.1H, Iron Level 23L, Total Iron Binding Capacity 141L, Transferrin % Saturation 16.3L, Albumin 2.2L, Random Vancomycin Level 22.6 CBC/BMP Laboratory Tests 07/18/20 11:45 07/19/20 06:00 07/19/20 06:55 Microbiology Microbiology 07/18/20 Wound Culture, Received Pending 07/18/20 Blood Culture, Received Pending 07/18/20 Blood Culture, Received Pending Allergies Coded Allergies: aspirin (Verified Allergy, Unknown, 04/21/20) garlic (Verified Adverse Reaction, Intermediate, syncope, 04/21/20) silver (Verified Adverse Reaction, Intermediate, angulo, 04/21/20) Home Medications Scheduled Allopurinol (Allopurinol) 100 Mg Tablet, 100 MG PO DAILY, (Reported) Apixaban (Eliquis) 5 Mg Tablet, 5 MG BID, (Reported) Calcium Acetate (Calcium Acetate) 667 Mg Tablet, 667 MG PO TID, (Reported) with meals Carvedilol (Carvedilol) 6.25 Mg Tablet, 6.25 MG PO BID, (Reported) Insulin Aspart (Novolog Flexpen) 100 Unit/Ml Inj, 1 DOSE SC ACHS, (Reported) PER SLIDING SCALE Insulin Detemir (Levemir) 100 Unit/1 Ml Vial, 80 UNITS SC BID, (Reported) Sucroferric Oxyhydroxide (Velphoro) 500 Mg Tab.chew, 1,000 MG PO TID, (Reported) with meals Torsemide (Torsemide) 20 Mg Tablet, 40 MG PO DAILY, (Reported) Scheduled PRN Albuterol Sulfate (Ventolin Hfa) 108 Mcg/Act Aer, 2 PUFF INH Q4H PRN for SHORTNESS OF BREATH, (Reported) Fluticasone Propion/Salmeterol (Advair Hfa 230-21 Mcg Inhaler) 12 Gm Hfa.aer.ad, 2 PUFF INH BID PRN for SOB/WHEEZING, (Reported) Katherine Aponte Jul 19, 2020 09:09
[2020-07-19] MEDS: PIPERACILLIN/TAZOBACTAM SOD 2.25 GM in D5W MINI-BAG PLUS 50 ML IV SCH ×3 (09:48→23:30)
--- NOTE | 2020-07-19 09:48 | REPVR ---
PROCEDURE INFORMATION: Exam: US Duplex Left Lower Extremity Arteries Or Arterial Bypass Grafts Exam date and time: 07/19/2020 9:09 AM Age: 54 years old Clinical indication: Pain; Leg, lower; Left; Additional info: Calf pain on the left foot TECHNIQUE: Imaging protocol: Left Real-time duplex scan of the arteries or arterial bypass grafts of the left lower extremity with 2-D charles scale, color Doppler flow and spectral waveform analysis. Images documented and saved. COMPARISON: US BILAT LOWER EXTREM ARTERIAL 09/09/2019 11:34 AM FINDINGS: Left common femoral artery: 101.0 cm/sec, triphasic. Left superficial femoral artery: Proximal SFA 70.1 cm/sec, triphasic. Slightly more distal proximal SFA medium echogenicity nonshadowing plaque, 581.0 cm/sec, monophasic Mid SFA 104.1 cm/sec, monophasic. Distal SFA 72.4 cm/sec, monophasic. Left popliteal artery: Popliteal 44.9 cm/sec in, monophasic. Left calf/foot arteries: Tibioperoneal trunk 67.6 cm/sec, monophasic. Proximal ALEJANDRO 60.4 cm/sec, monophasic. Distal ALEJANDRO 11.4 cm/sec, monophasic. Proximal CUSTOMER SERVICE ANALYST 46.8 cm/sec, monophasic. Distal CUSTOMER SERVICE ANALYST 37.6 cm/sec, monophasic. Other arteries: Left proximal profunda femoris artery: 166.6 cm/sec, biphasic. IMPRESSION: Proximal left SFA severe stenosis. Electronically signed by: Omar Kirk On 07/19/2020 09:46:35 AM
[2020-07-19] MEDS: CARVedilol 6.25 MG TAB PO SCH ×2 (09:49→22:31)
[2020-07-19] MEDS: allopurinoL 100 MG TAB PO SCH (09:49)
--- NOTE | 2020-07-19 13:21 | IPNPDOC ---
Text Note Date of Service The patient was seen on 07/19/20. NOTE S: The patient is a 54 YO with history of Insulin dependant type 2 Diabetes m ellitus Male presented with Severe, shooting, constant,nonradiating pain in his LLExtremity found to have leucocytosis, fever, tachycardia concerning for Acute limb ischemia vs Cellulitis vs a soft tissue Abscess. His pain feels much better- pain reduced from 8/10 to 3/10 today. He has been vomiting since last night at least 3 times, not vomiting as of now. He has been running high fever of 102 at night which was lowered to 98.8 over the course of the night by Tylenol as needed. Pt stated anxious about his possible need for toe amputation. O: He looked clinically better since yesterday. GENERAL: Mr Parrish was lying in bed comfortably today HEENT- AT/NC. Mucous membranes moist. Lungs- Normal B/L breath sounds, no wheezing, rubs, crackles heard. CVS: Normal heart sounds. No murmurs. Upper extremities: Normal regular pulses heard in both arms. Lower Extremities: LEFT: The erythema, induration and inflammation still seen , tender to touch, slightly better in appearance than yesterday. The plantar wound is covered by a dressing. The great big toe is discolored,( bluish tinged) ,cool to touch. Pulses- not appreciated ( both Dorsalis Pedis and posterior tibial). RIGHT: The Rt calf is also erythematous, indurated and red but non tender. Pulses 1+ both Dorsalis pedis and posterior tibialis. NEURO: Decreased sensations over the left and right distal plantar and dorsal surface of the feet. Motor strength is Normal in all extremities. ASSESSMENT AND PLAN: Left lower limb pain: 1.Acute limb ischemia: Arterial duplex ultrasound result shows Proximal superficial femoral artery severe stenosis. The patient is on a Heparin drip IV infusion - Continue. Vascular surgery is onboard - considering a LLE angiogram and surgery. 2.Cellulitis: Superimposed cellulitis - continuing fevers - improved leucocytosis (10.8). - Continue antibiotics (Vancomycin and Zosyn) Serial monitoring of CRP ordered. Left plantar wound debridement and I and D scheduled for the abscess today in the OR by Podiatry. MRSA status of the patient is still pending. 3.Osteomyelitis left foot- Ruled out on MRI . 4. His DVT has been ruled out by a normal venous Doppler Ultrasound >Vomiting- Resolved on Zofran - Use as needed. >.Insulin dependant Type 2 Diabetes Melliitus: His HbA1c was 8 as of yesterday. Patient's blood glucose level is under control on sliding scale and Levimir 40 U. > ESRD: Missed his Saturday dialysis appointment. BUN is 84. Cr is 10. - Will be dialyzed today Nephrology consulted, recommendations are appreciated. > Asthma- well controlled on Ventolin inhaler 2 puffs as needed. DVT prophylaxis - c/w full anticoagulation with Heparin drip VS,Fishbone, I+O VS, Fishbone, I+O Laboratory Tests 07/19/20 06:00 07/19/20 06:55 Vital Signs Date Time Temp Pulse Resp B/P (MAP) Pulse Ox O2 Delivery O2 Flow Rate FiO2 07/19/20 09:49 91 145/68 07/19/20 06:00 98.8 16 93 Room Air I&O- Last 24 Hours up to 6 AM 07/19/20 06:00 Intake Total 852.5 ml Output Total 600 ml Balance 252.5 ml GME ATTESTATION GME ATTESTATION My faculty preceptor for this patient encounter was physically present during the encounter and was fully available. All aspects of the patient interview, examination, medical decision making process, and medical care plan development were reviewed and approved by the faculty preceptor. The faculty preceptor is a garcia and concurs with the plan as stated in the body of this note and will attest to such by his/her cosignature. ATTENDING NOTE I, Christian Dunham, have independently examined this patient and performed my own physical exam, as well as reviewed the documentation and edited where necessary. I have discussed in detail with the resident / student the findings and plan of treatment as documented by the resident / student and edited their note. I agree with their findings and treatment plan and have edited their documentation. I will continue to follow the patient during this hospital stay. Al Rosenberg MD Jul 19, 2020 13:21 CHRISTIAN DUNHAM MD Jul 19, 2020 14:28
[2020-07-19] MEDS ORDERED: VANCOMYCIN HCL 750 MG, VIAL MATE ADAPTER 1 EACH in D5W 250 ML IV ONE (16:00)
[2020-07-19] MEDS: **VANCO AFTER HD** MISC XX SCH (16:00)
[2020-07-19] MEDS ORDERED: LIDOCAINE 1% MDV 20ML VIAL As Ordered ONE ×2 (16:55→19:02)
[2020-07-19] MEDS ORDERED: BUPIVACAINE HCL 0.5% 10ML VIAL As Ordered ONE ×2 (16:55→19:02)
[2020-07-19 17:45] VITALS: BP 168/81
[2020-07-19] MEDS ORDERED: propofoL 200 MG/20 ML VIAL As Ordered ONE (19:07)
[2020-07-19] MEDS ORDERED: ONDANSETRON 4MG/2ML VIAL As Ordered ONE (19:07)
[2020-07-19] MEDS ORDERED: MIDAZOLAM INJ 2MG/2ML VIAL (J2250 PER 1MG) As Ordered ONE ×2 (19:07→19:22)
[2020-07-19] MEDS ORDERED: LIDOCAINE 2% 100MG/5ML SDV (FOR ANES.) As Ordered ONE (19:07)
[2020-07-19] MEDS ORDERED: fentaNYL 100 MCG/2 ML INJECTION (J3010) As Ordered ONE (19:07)
[2020-07-19] MEDS ORDERED: dexameTHASONE 4 MG/ML 1ML VIAL (J1100 PER 1MG) As Ordered ONE (19:24)
[2020-07-19 21:00] VITALS: BP 102/74
[2020-07-19] MEDS ORDERED: DARBEPOETIN 200MCG/0.4ML *DIALYSIS* SYRINGE (J0882 PER 1MCG) IV SCH (21:15)
[2020-07-19 21:30] VITALS: BP 109/69
[2020-07-19 22:00] VITALS: BP 146/69
[2020-07-19] MEDS ORDERED: ONDANSETRON 4MG/2ML VIAL IV PRN (22:00)
[2020-07-19] MEDS ORDERED: LR 1,000 ML IV SCH (22:00)
[2020-07-19] MEDS ORDERED: oxyCODONE 5MG TAB PO PRN (22:00)
[2020-07-19] MEDS ORDERED: HEPARIN SOD (PORCINE) 5000UNITS/ML 1ML VIAL/SYRINGE IV PRN (22:00)
[2020-07-19] MEDS: HEPARIN DRIP 25,000 UNITS in IV 1 EA IV SCH (22:28)
[2020-07-19] MEDS: ACETAMINOPHEN TAB 650MG DOSE (2X325MG) PO PRN (22:35)
[2020-07-19 23:00] VITALS: BP 139/64
[2020-07-19 23:16] LABS: HEMATOCRIT 25.9 % (42.0-52.0); HEMOGLOBIN 8.1 g/dl (13.5-17.5); MEAN CORPUSCULAR HEMOGLOBIN 29.7 pg (27.0-33.0); MEAN CORPUSCULAR HGB CONC 31.3 g/dl (32.0-36.5); MEAN CORPUSCULAR VOLUME 94.9 fl (80.0-96.0); PLATELET COUNT, AUTOMATED 221 10^3/uL (150-450); RED BLOOD COUNT 2.73 10^6/uL (4.30-6.10); WHITE BLOOD COUNT 9.3 10^3/uL (4.0-10.0)
[2020-07-20] VITALS (11 sets, daily range): BP systolic 104–167; BP diastolic 48–88
[2020-07-20 07:07] LABS: HEMATOCRIT 27.9 % (42.0-52.0); HEMOGLOBIN 8.5 g/dl (13.5-17.5); MEAN CORPUSCULAR HGB CONC 30.5 g/dl (32.0-36.5); MEAN CORPUSCULAR VOLUME 95.2 fl (80.0-96.0); PLATELET COUNT, AUTOMATED 221 10^3/uL (150-450); RED BLOOD COUNT 2.93 10^6/uL (4.30-6.10); WHITE BLOOD COUNT 7.9 10^3/uL (4.0-10.0)
[2020-07-20 07:28] LABS: ALBUMIN 2.1 GM/DL (3.2-5.2); C REACTIVE PROTEIN QUANTITATIV 30.8 MG/DL (0.00-0.30); CALCIUM LEVEL 8.6 MG/DL (8.5-10.1); CREATININE FOR GFR 6.22 MG/DL (0.70-1.30); GLOMERULAR FILTRATION RATE 10.1 (>56); PHOSPHORUS LEVEL 5.8 MG/DL (2.5-4.9); POTASSIUM SERUM 4.5 MEQ/L (3.5-5.1)
[2020-07-20] MEDS: HumaLOG INSULIN (NovoLOG) PER UNIT SC SCH ×4 (07:30→21:00)
[2020-07-20] MEDS: ADVAIR HFA 230/21MCG INHALER INH SCH ×2 (07:43→19:56)
[2020-07-20] MEDS: SUCROFERRIC OXYHYDROXIDE 500MG CHEW TAB (VELPHORO) PO SCH ×4 (08:00→21:19)
[2020-07-20] MEDS: CALCIUM ACETATE 667MG GELCAP PO SCH ×4 (08:11→21:19)
[2020-07-20] MEDS: CARVedilol 6.25 MG TAB PO SCH ×2 (08:16→21:20)
[2020-07-20] MEDS: allopurinoL 100 MG TAB PO SCH (08:16)
[2020-07-20] MEDS: PIPERACILLIN/TAZOBACTAM SOD 2.25 GM in D5W MINI-BAG PLUS 50 ML IV SCH ×2 (08:17→18:09)
[2020-07-20] MEDS: HEPARIN DRIP 25,000 UNITS in IV 1 EA IV SCH (11:10)
[2020-07-20] MEDS ORDERED: IRON SUCROSE 100MG 5ML VIAL (J1756 PER 1MG) IV SCH (11:30)
[2020-07-20] MEDS: LEVEMIR (INSULIN DETEMIR) 1 UNITS/0.01ML SC SCH ×2 (12:00→21:21)
[2020-07-20] MEDS ORDERED: MIDAZOLAM INJ 2MG/2ML VIAL (J2250 PER 1MG) As Ordered ONE (14:16)
[2020-07-20] MEDS ORDERED: fentaNYL 100 MCG/2 ML INJECTION (J3010) As Ordered ONE (14:16)
[2020-07-20] MEDS ORDERED: LIDOCAINE 1% MDV 20ML VIAL As Ordered ONE (14:17)
[2020-07-20] MEDS ORDERED: ISOVUE-300 61% 50ML VIAL As Ordered ONE (14:17)
[2020-07-20] MEDS: **VANCO AFTER HD** MISC XX SCH (16:00)
[2020-07-20] MEDS ORDERED: VANCOMYCIN HCL 750 MG, VIAL MATE ADAPTER 1 EACH in D5W 250 ML IV ONE (16:00)
[2020-07-20] MEDS ORDERED: CLOPIDOGREL 75 MG TAB As Ordered ONE (17:23)
[2020-07-20] MEDS ORDERED: CLOPIDOGREL 75 MG TAB PO ONE (17:30)
--- NOTE | 2020-07-20 20:29 | IPNPDOC ---
Text Note Date of Service The patient was seen on 07/20/20. NOTE S: The patient is a 54 YO with history of Insulin dependant type 2 Diabetes m ellitus Male presented with Severe, shooting, constant,nonradiating pain in his LL Extremity, found to have leucocytosis, fever, tachycardia concerning for Cellulitis vs a soft tissue Abscess. His pain feels much better- O: He looked clinically better since yesterday. GENERAL: Mr Mims was lying in bed comfortably today HEENT- AT/NC. Mucous membranes moist. Lungs- Normal B/L breath sounds, no wheezing, rubs, crackles heard. CVS: Normal heart sounds. No murmurs. Upper extremities: Normal regular pulses heard in both arms. Lower Extremities: LEFT: The erythema, induration and inflammation still seen , tender to touch, slightly better in appearance than yesterday. Foot covered by dressing from surgery. . RIGHT: The Rt calf is also erythematous, indurated and red but non tender. Pulses 1+ both Dorsalis pedis and posterior tibialis. NEURO: Decreased sensations over the left and right distal plantar and dorsal surface of the feet. Motor strength is Normal in all extremities. ASSESSMENT AND PLAN: Left lower limb pain: 1.Acute limb ischemia: Arterial duplex ultrasound result shows Proximal superficial femoral artery severe stenosis. The patient is on a Heparin drip IV infusion - Continue. Vascular surgery is onboard - Received a Left Lower Extremity angiogram today- result pending. 2.Cellulitis: Superimposed cellulitis - continuing fevers - improved leucocytosis (7.9). - Continue antibiotics (Vancomycin and Zosyn) Left plantar wound debridement and Left toe amputation done yesterday in the OR by Podiatry. MRSA status of the patient is still pending. 3.Osteomyelitis left foot- Ruled out on MRI . 4. His DVT has been ruled out by a normal venous Doppler Ultrasound >Vomiting- Resolved on Zofran - Use as needed. >.Insulin dependant Type 2 Diabetes Mellitus: His HbA1c was 8 as of yesterday. Patient's blood glucose level is under control on sliding scale and Levemir 40 U. > ESRD: Missed his Saturday dialysis appointment. BUN is 84. Cr is 10. - Will be dialyzed today Nephrology consulted, recommendations are appreciated. > Asthma- well controlled on Ventolin inhaler 2 puffs as needed. DVT prophylaxis - c/w full anticoagulation with Heparin drip VS,Fishbone, I+O VS, Fishbone, I+O Laboratory Tests 07/19/20 21:35 07/20/20 05:45 Vital Signs Date Time Temp Pulse Resp B/P (MAP) Pulse Ox O2 Delivery O2 Flow Rate FiO2 07/20/20 18:30 98.0 78 18 122/69 (86) 96 Room Air 07/20/20 16:39 2 I&O- Last 24 Hours up to 6 AM 07/20/20 06:00 Intake Total 970 ml Output Total 3025 ml Balance -2055 ml GME ATTESTATION GME ATTESTATION My faculty preceptor for this patient encounter was physically present during the encounter and was fully available. All aspects of the patient interview, examination, medical decision making process, and medical care plan development were reviewed and approved by the faculty preceptor. The faculty preceptor is aware and concurs with the plan as stated in the body of this note and will attest to such by his/her cosignature. ATTENDING NOTE I, Christian Jackman, have independently examined this patient and performed my own physical exam, as well as reviewed the documentation and edited where necessary. I have discussed in detail with the resident / student the findings and plan of treatment as documented by the resident / student and edited their note. I agree with their findings and treatment plan and have edited their documentation. I will continue to follow the patient during this hospital stay. Al Rosenberg MD Jul 20, 2020 20:29 CHRISTIAN JACKMAN MD Jul 20, 2020 20:37
[2020-07-21] MEDS: PIPERACILLIN/TAZOBACTAM SOD 2.25 GM in D5W MINI-BAG PLUS 50 ML IV SCH ×2 (00:11→08:24)
[2020-07-21 01:59] LABS: CK-MB VALUE MASS < 1.0 NG/ML (<3.6); CPK CREATINE PHOSPHOKINASE 23 U/L (39-308); MB/CK RELATIVE INDEX 4.35 (< OR =4); TROPONIN I < 0.02 NG/ML (< 0.10)
[2020-07-21 02:00] VITALS: BP 123/65
[2020-07-21 06:00] VITALS: BP 123/63
[2020-07-21 06:50] LABS: HEMATOCRIT 27.9 % (42.0-52.0); HEMOGLOBIN 8.5 g/dl (13.5-17.5); MEAN CORPUSCULAR HEMOGLOBIN 29.2 pg (27.0-33.0); MEAN CORPUSCULAR HGB CONC 30.5 g/dl (32.0-36.5); MEAN CORPUSCULAR VOLUME 95.9 fl (80.0-96.0); PLATELET COUNT, AUTOMATED 254 10^3/uL (150-450); RED BLOOD COUNT 2.91 10^6/uL (4.30-6.10); WHITE BLOOD COUNT 8.5 10^3/uL (4.0-10.0)
[2020-07-21 07:28] LABS: ALBUMIN 1.9 GM/DL (3.2-5.2); BLOOD UREA NITROGEN 39 MG/DL (7-18); CARBON DIOXIDE LEVEL 31 MEQ/L (21-32); CHLORIDE LEVEL 97 MEQ/L (98-107); CREATININE FOR GFR 4.82 MG/DL (0.70-1.30); GLOMERULAR FILTRATION RATE 13.6 (>56); GLUCOSE, FASTING 242 MG/DL (70-100); PHOSPHORUS LEVEL 3.2 MG/DL (2.5-4.9); POTASSIUM SERUM 3.4 MEQ/L (3.5-5.1); SODIUM LEVEL 136 MEQ/L (136-145)
[2020-07-21] MEDS: ADVAIR HFA 230/21MCG INHALER INH SCH ×2 (07:55→20:18)
[2020-07-21] MEDS: ONDANSETRON 4MG/2ML VIAL IV PRN (08:18)
[2020-07-21] MEDS: SUCROFERRIC OXYHYDROXIDE 500MG CHEW TAB (VELPHORO) PO SCH ×3 (08:18→17:40)
[2020-07-21] MEDS: CALCIUM ACETATE 667MG GELCAP PO SCH ×3 (08:19→17:40)
[2020-07-21] MEDS: HumaLOG INSULIN (NovoLOG) PER UNIT SC SCH ×4 (08:19→21:00)
[2020-07-21] MEDS: ACETAMINOPHEN TAB 650MG DOSE (2X325MG) PO PRN (08:20)
[2020-07-21] MEDS: allopurinoL 100 MG TAB PO SCH (08:24)
[2020-07-21] MEDS: CARVedilol 6.25 MG TAB PO SCH ×2 (08:24→21:17)
[2020-07-21] MEDS: LEVEMIR (INSULIN DETEMIR) 1 UNITS/0.01ML SC SCH ×2 (09:00→21:13)
[2020-07-21] MEDS ORDERED: CLOPIDOGREL 75 MG TAB PO SCH (09:00)
[2020-07-21 10:00] VITALS: BP 120/60
[2020-07-21 10:20] LABS: CK-MB VALUE MASS < 1.0 NG/ML (<3.6); CPK CREATINE PHOSPHOKINASE 20 U/L (39-308); TROPONIN I < 0.02 NG/ML (< 0.10)
[2020-07-21] MEDS: DOCUSATE SODIUM 100 MG CAP PO SCH ×2 (10:44→21:00)
--- NOTE | 2020-07-21 10:48 | IPNPDOC ---
Text Note Date of Service The patient was seen on 07/21/20. NOTE Vascular Surgery Dr Schuler. The patient is a 54-year-old male with h/o PAD and chronic venous insufficiency with previous right lower extremity angiogram with angioplasty and stenting of his right SFA 11/06/[address] Dave. Left plantar wound debridement and Left toe amputation done 07/19/20 as per Podiatry. S/P LLE angiogram with intervention 07/20/[address] Schuler, report pending. Heparin gtt d/c 07/20. Plavix daily. Would recommend consideration of statin if no other contraindication, will defer to primary svc. The pt is also known to have h/o ESRD, on HD status post right brachial axillary graft as per Dr. Schuler 04/28/20. S/P TPA assisted thrombectomy right brachial axillary graft 06/07/[address] Schuler, on Eliquis AC. Plan is for fistulogram today as per Dr Schuler. [facility] this Am for procedure today. The procedure, risks, benefits, alternatives reviewed, informed consent is obtained and placed with the chart. VS,Fishbone, I+O VS, Fishbone, I+O Laboratory Tests 07/21/20 05:25 Vital Signs Date Time Temp Pulse Resp B/P (MAP) Pulse Ox O2 Delivery O2 Flow Rate FiO2 07/21/20 08:24 77 149/77 07/21/20 06:00 98.1 17 95 Room Air 07/20/20 16:39 2 I&O- Last 24 Hours up to 6 AM 07/21/20 05:59 Intake Total 687 ml Output Total 2275 ml Balance -1588 ml Katherine Aponte Jul 21, 2020 10:48
--- NOTE | 2020-07-21 10:53 | IPNPDOC ---
Text Note Date of Service The patient was seen on 07/21/20. NOTE S: The patient is a 54 YO with history of Insulin dependant type 2 Diabetes mellitus Male presented with Severe, shooting, constant,nonradiating pain in his LL Extremity, found to have leucocytosis, fever, tachycardia concerning for Cellulitis vs a soft tissue Abscess. His pain feels much better- pain reduced remarkably. Mr Parrish is doing well but complains of an intermittent throbbing moderate pain in his lower abdomen radiating to the right groin. Tylenol made him feel much better. O: He looked clinically better since yesterday. GENERAL: Mr Parrish was lying in bed comfortably today HEENT- AT/NC. Mucous membranes moist. Lungs- Normal B/L breath sounds, no wheezing, rubs, crackles heard. CVS: Normal heart sounds. No murmurs. Upper extremities: Normal regular pulses heard in both arms. Lower Extremities: LEFT: The erythema, induration and inflammation still seen , tender to touch, slightly better in appearance than yesterday. Foot covered by dressing from surgery. . RIGHT: The Rt calf is also erythematous, indurated and red but non tender. Pulses 1+ both Dorsalis pedis and posterior tibialis. NEURO: Decreased sensations over the left and right distal plantar and dorsal surface of the feet. Motor strength is Normal in all extremities. ASSESSMENT AND PLAN: Left lower limb pain: 1.Acute limb ischemia: Arterial duplex ultrasound result shows Proximal superficial femoral artery severe stenosis. The patient is on a Heparin drip IV infusion - Continue. Vascular surgery is onboard - Received a Left Lower Extremity angiogram with intervention done 07/20/20- Report pending He is undergoing a fistulogram today. 2.Cellulitis: Superimposed cellulitis -Discontinue the I/V antibiotics-start Levoquin 500 mg PO Q48(Renally adjusted dose) MRSA-negative > Lower abdominal and groin pain post LLE Angigram: The pt's vitals are stable. He has not had a bowel movement since two days. Plan is to start him on Docusate ( Colace) >.Insulin dependant Type 2 Diabetes Mellitus: His HbA1c was 8 as of yesterday. Patient's blood glucose level is under control on sliding scale and Levemir 40 U. > ESRD: Missed his Saturday dialysis appointment. BUN is 84. Cr is 10. - Will be dialyzed today Nephrology consulted, recommendations are appreciated. > Asthma- well controlled on Ventolin inhaler 2 puffs as needed. DVT prophylaxis - c/w full anticoagulation with Heparin drip VS,Fishbone, I+O VS, Fishbone, I+O Laboratory Tests 07/21/20 05:25 Vital Signs Date Time Temp Pulse Resp B/P (MAP) Pulse Ox O2 Delivery O2 Flow Rate FiO2 07/21/20 08:24 77 149/77 07/21/20 06:00 98.1 17 95 Room Air 07/20/20 16:39 2 I&O- Last 24 Hours up to 6 AM 07/21/20 06:00 Intake Total 387 ml Output Total 1900 ml Balance -1513 ml GME ATTESTATION GME ATTESTATION My faculty preceptor for this patient encounter was physically present during the encounter and was fully available. All aspects of the patient interview, examination, medical decision making process, and medical care plan development were reviewed and approved by the faculty preceptor. The faculty preceptor is aware and concurs with the plan as stated in the body of this note and will attest to such by his/her cosignature. ATTENDING NOTE I, Christian Jackman, have independently examined this patient and performed my own physical exam, as well as reviewed the documentation and edited where necessary. I have discussed in detail with the resident / student the findings and plan of treatment as documented by the resident / student and edited their note. I agree with their findings and treatment plan and have edited their documentation. I will continue to follow the patient during this hospital stay. Al Rosenberg MD Jul 21, 2020 10:37 CHRISTIAN JACKMAN MD Jul 21, 2020 20:23
[2020-07-21] MEDS: LevoFLOXacin 500 MG TABLET PO SCH (11:29)
[2020-07-21] MEDS ORDERED: MIDAZOLAM INJ 2MG/2ML VIAL (J2250 PER 1MG) As Ordered ONE (12:35)
[2020-07-21] MEDS ORDERED: fentaNYL 100 MCG/2 ML INJECTION (J3010) As Ordered ONE (12:35)
[2020-07-21] MEDS ORDERED: LIDOCAINE 1% MDV 20ML VIAL As Ordered ONE (12:36)
[2020-07-21] MEDS ORDERED: ISOVUE-300 61% 50ML VIAL As Ordered ONE (12:36)
--- NOTE | 2020-07-21 14:57 | ROOPDOC ---
[facility] Report Of Operation Report of Operation DATE OF PROCEDURE: 07/21/20 PREPROCEDURE DIAGNOSES: End-stage renal disease with pulsatility right tracheal axillary AV graft POSTPROCEDURE DIAGNOSES: Same PROCEDURE: 1. Ultrasound-guided access right brachial axillary graft 2. Right upper extremity fistulogram and central venogram 3. Angioplasty right subclavian vein with 12 x 40 [place] balloon at the thoracic outlet 4. Angioplasty graft venous anastomosis with an 8 x 40 [place] balloon 5. Completion venogram SURGEON: Kaitlin Schuler MD ANESTHESIA: Local anesthesia 2 mL lidocaine. Moderate intravenous conscious sedation was a materials buyer by Dr. Schuler. The patient was independent remonitor by registered nurse and sinus the Department of radiology using automated blood pressure, EKG, and pulse oximetry. A detailed sedation record is permanently started in the hospital information system. The following is a brief sedation record: Start time 13:54, stop time 14:18, Versed 1 mg IV, fentanyl 50 g IV. CONTRAST: 24 mL Isovue-300 INDICATION FOR PROCEDURE: The patient is a very pleasant 54-year-old on with end-stage renal disease and a right brachial axillary AV graft with increasing pulsatility. He has had problems with stenoses recurring at the thoracic outlet in the subclavian vein and at the graft venous anastomosis. Risks benefits and alternatives to a fistulogram and potential intervention were explained to the patient he is agreeable to proceed. Informed consent was obtained. INTERPRETATION: 1. Ultrasound was used to examine the AV anastomosis and it was noted to be widely patent. 2. The graft has excellent flow with no engraft stenosis noted, but there is a 40% stenosis at the right graft venous anastomosis, which is actually an improvement from previous interventions where we noted 80% stenosis. I think we are finally starting to make some progress with this area. 3. There is a 60% stenosis at the thoracic outlet in the right subclavian vein 4. After angioplasty of the right subclavian vein, there is widely patent flow with less than 20% residual stenosis. 5. After angioplasty of the graft venous anastomosis, there is widely patent flow with no significant residual stenosis and an excellent improve thrill in the fistula. Pulsatility has resolved. REPORT OF OPERATION: The patient was brought to the angiographic suite in stable condition. His right upper extremity was prepped and draped in a sterile fashion. A timeout was performed. Local anesthesia was a materials buyer to the skin and subcutaneous tissue over the right AV graft near the AV anastomosis. Ultrasound was used to examine the AV anastomosis and it was noted to be widely patent. We then used ultrasound to gain access to the graft with a microneedle. A wire was passed through this access needle was removed. 4 [place] sheath was placed and flushed with saline. Sedation was administered without complication. Next, a Glidewire was advanced through this access and a fistulogram and central venogram were performed. Please interpretation above. We then exchanges sheath over the wire for some [place] sheath and this was flushed with saline. A 12 x 40 [place] balloon was advanced into the central system across the thoracic outlet and subclavian artery stenosis. A three-minute inflation was performed and following this there was widely patent flow with less than 20% residual stenosis. We then exchanges the balloon for an 8 x 40 [place] balloon which was inflated across the graft venous anastomosis for three-minute inflation. Following this there was widely patent flow with no significant residual stenosis in an excellent thrill of the graft. This concluded the procedure. Local anesthesia was a materials buyer around the sheath. The balloon and wire were removed and a Prolene [id number]-ag-[id number] suture was placed at the sheath exit site and the sheath was removed. Pressure was held for 5 minutes for good hemostasis and sterile dressings were applied. The patient was taken to recovery in stable condition. He tolerated the procedure and sedation well. ESTIMATED BLOOD LOSS: Approximately 2 mL. COMPLICATIONS: None. PLAN: Okay to continue to use AV graft for dialysis. The patient says it is not being used while he is inpatient but it has been used successfully outpatient. We would like to get the PermCath out as soon as possible since it is been in for such an extended period of time. Hopefully this will be scheduled soon. I also spoke with Dr. Edwards about the patient's left foot and he plans to take him back to surgery Saturday, thus we will stop the Plavix and ask the hospitalist team to but the patient on heparin drip for now and we can restart Plavix when he is discharged outpatient. We appreciate the opportunity to participate in the care of this patient. KAITLIN SCHULER MD Jul 21, 2020 14:57
[2020-07-21] MEDS ORDERED: HEPARIN DRIP 25,000 UNITS in IV 1 EA IV SCH (14:59)
[2020-07-21] MEDS ORDERED: HEPARIN SOD (PORCINE) 5000UNITS/ML 1ML VIAL/SYRINGE IV PRN (15:00)
--- NOTE | 2020-07-21 15:13 | IPNPDOC ---
Date Seen The patient was seen on 07/21/20. Progress Note Patient is now s/p LLE revascularization, and we will stop plavix for now and start a heparin gtt instead since Dr Edwards plans to perform additional surgery this Saturday. When Dr. Edwards is agreeable, I would recommend restarting the Plavix and he will need at least 60 days uninterrupted Plavix at home due to bare-metal stent placement in the left superficial femoral artery. Without anticoagulation or Plavix, the stent is likely to thrombose. We would like to see the patient back in clinic in 1-2 weeks to check his groin access site and see how he is doing with dialysis, and hopefully set him up for PermCath removal. We appreciate the opportunity to participate in the care of this patien t. VS, I&O, 24H, Emilie Vital Signs/I&O Vital Signs Date Time Temp Pulse Resp B/P (MAP) Pulse Ox O2 Delivery O2 Flow Rate FiO2 07/21/20 14:27 73 18 97 Room Air 07/21/20 14:19 2 07/21/20 13:09 98.5 07/21/20 10:00 120/60 (80) I&O- Last 24 Hours up to 6 AM 07/21/20 06:00 Intake Total 387 ml Output Total 1900 ml Balance -1513 ml Laboratory Data 24H LABS Laboratory Tests 2 07/20/20 18:25: Methicillin-Resist S.aureus DNA PCR NOT DETECTED 07/21/20 05:25: Nucleated Red Blood Cells % (auto) 0.7H, Anion Gap 8, Glomerular Filtration Rate 13.6L, Calcium Level 8.0L, Phosphorus Level 3.2#, Total Creatine Kinase 20L, Creatine Kinase MB < 1.0, Creatine Kinase MB Relative Index 5.00H, Troponin I < 0.02, C-Reactive Protein, Quantitative 20.40H, Albumin 1.9L CBC/BMP Laboratory Tests 07/21/20 05:25 Microbiology Microbiology 07/19/20 Anaerobic Culture, Received Pending 07/19/20 Gram Stain - Final, Resulted 07/19/20 Wound Culture - Preliminary, Resulted Proteus Penneri 07/18/20 Wound Culture - Final, Complete Proteus Vulgaris Staphylococcus Aureus 07/18/20 Blood Culture - Preliminary, Resulted No Growth after 72 hours. All specime... 07/18/20 Blood Culture - Preliminary, Resulted No Growth after 72 hours. All specime... KAITLIN STALLINGS MD Jul 21, 2020 15:13
[2020-07-21 17:30] VITALS: BP 145/77
[2020-07-21] MEDS: HEPARIN DRIP 25,000 UNITS in IV 1 EA IV SCH (17:39)
[2020-07-21 22:00] VITALS: BP 116/64
[2020-07-22 02:00] VITALS: BP 142/93
[2020-07-22 03:26] LABS: HEMATOCRIT 25.7 % (42.0-52.0); HEMOGLOBIN 8.1 g/dl (13.5-17.5); MEAN CORPUSCULAR HEMOGLOBIN 29.8 pg (27.0-33.0); MEAN CORPUSCULAR HGB CONC 31.5 g/dl (32.0-36.5); MEAN CORPUSCULAR VOLUME 94.5 fl (80.0-96.0); PLATELET COUNT, AUTOMATED 262 10^3/uL (150-450); RED BLOOD COUNT 2.72 10^6/uL (4.30-6.10)
[2020-07-22] MEDS: ACETAMINOPHEN TAB 650MG DOSE (2X325MG) PO PRN ×2 (03:55→14:32)
[2020-07-22] MEDS: HEPARIN SOD (PORCINE) 5000UNITS/ML 1ML VIAL/SYRINGE IV PRN ×2 (03:56→22:25)
[2020-07-22 04:42] LABS: C REACTIVE PROTEIN QUANTITATIV 14.1 MG/DL (0.00-0.30); CREATININE FOR GFR 6.82 MG/DL (0.70-1.30); GLOMERULAR FILTRATION RATE 9.1 (>56); PHOSPHORUS LEVEL 2.5 MG/DL (2.5-4.9); POTASSIUM SERUM 3.9 MEQ/L (3.5-5.1)
[2020-07-22 06:00] VITALS: BP 142/68
[2020-07-22] MEDS: CARVedilol 6.25 MG TAB PO SCH ×2 (06:42→22:35)
[2020-07-22] MEDS: allopurinoL 100 MG TAB PO SCH (06:43)
[2020-07-22] MEDS: DOCUSATE SODIUM 100 MG CAP PO SCH ×2 (06:43→21:00)
[2020-07-22] MEDS: SUCROFERRIC OXYHYDROXIDE 500MG CHEW TAB (VELPHORO) PO SCH ×3 (08:00→17:13)
[2020-07-22] MEDS: CALCIUM ACETATE 667MG GELCAP PO SCH ×3 (08:00→17:14)
[2020-07-22] MEDS: ADVAIR HFA 230/21MCG INHALER INH SCH ×2 (08:09→20:13)
[2020-07-22] MEDS: HumaLOG INSULIN (NovoLOG) PER UNIT SC SCH ×4 (08:21→22:36)
[2020-07-22] MEDS: LEVEMIR (INSULIN DETEMIR) 1 UNITS/0.01ML SC SCH ×2 (08:23→22:37)
[2020-07-22] MEDS ORDERED: LIDOCAINE 1% SDV 5ML VIAL SQ ONE (11:15)
--- NOTE | 2020-07-22 11:52 | IPNPDOC ---
Text Note Date of Service The patient was seen on 07/22/20. NOTE Subjective: Patient is a 54 year old male with a PMHx of ESRD on HD (MWF), Paroxysmal A. fib, HTN, Diastolic CHF, CAD (Hx of NSTEMI), PVD s/p placement in femoral artery, IDDM2, Asthma, Pulmonary HTN, Hx of Chronic non-healing L foot ulcer, Chronic venosus stasis, Obesity who presented to the ED with left calf / leg pain and was found to have a left foot ulcer / cellulitis. Patient was admitted to the hospitalist service. Podiatry, Vascular surgery and Nephrology were called on consultation. Patient was seen and examined at the bedside. Currently patient reports that they feel better. Deny any CP, SOB, palpitations, abdominal pain, C/D. He does report some left leg tingling sensation. Objective: Vitals (See below) General: Lying in bed, no acute distress, comfortable, AAOx3 HEENT: NC, AT CVS: +S1S2 Lungs: Fair air entry b/l, no wheezing / rhonchi / rales Abdomen: Soft, ND, NT Extremities: - Edema, - Calf tenderness Assessment and plan: Left foot cellulitis / acute on chronic ulcer - Wound appears to be healing appropriately - Leukocytosis resolved / Afebrile - Cultures noted - MRSA negative - s/p angiogram and angioplasty of LLE on 07/20 - s/p resection of 1st digit; wound cleared - c/w Levaquin; s/p Vancomycin and Zosyn - Plan for additional resection on 07/23 with Podiatry - Will resume Plavix after procedure; c/w Heparin drip for now Left leg tingling - possibly 2/2 revascularization - Currently has palpable pulses and wound appears to be healing well - c/w Heparin drip; will transition to Plavix once definitive surgery is completed on 07/23 s/p Constipation - Has had bowel movements yesterday - c/w Bowel regimen as ordered Paroxysmal A. fib - c/w rate control with carvedilol - Will c/w Heparin drip; transition to Eliquis post-operatively HTN - BP well controlled - c/w Carvedilol Diastolic CHF - No evidence of fluid overload - c/w HD as scheduled CAD (Hx of NSTEMI) - c/w Heparin drip; will start Plavix post-operatively IDDM2 - c/w ISS and Levemir ESRD - Will c/w HD (MWF) - Nephrology on consultation - s/p Fistulogram (07/21) Asthma - No evidence of exacerbation - c/w inhaled therapy as ordered DVT prophylaxis - c/w Heparin drip VS,Fishbone, I+O VS, Fishbone, I+O Laboratory Tests 07/22/20 03:21 Vital Signs Date Time Temp Pulse Resp B/P (MAP) Pulse Ox O2 Delivery O2 Flow Rate FiO2 07/22/20 06:42 75 142/68 07/22/20 06:00 98.0 18 92 Room Air 07/21/20 14:19 2 I&O- Last 24 Hours up to 6 AM 07/22/20 06:00 Intake Total 410 ml Output Total 0 ml Balance 410 ml KIN JACKMAN MD Jul 22, 2020 11:52
[2020-07-22 14:00] VITALS: BP 164/72
[2020-07-22 18:00] VITALS: BP 152/64
[2020-07-22 22:00] VITALS: BP 176/81
[2020-07-22] MEDS: HEPARIN DRIP 25,000 UNITS in IV 1 EA IV SCH (22:27)
[2020-07-23 02:00] VITALS: BP 160/69
[2020-07-23] MEDS: LevoFLOXacin 500 MG TABLET PO SCH (05:45)
[2020-07-23 06:00] VITALS: BP 180/82
[2020-07-23 06:08] LABS: HEMATOCRIT 26.4 % (42.0-52.0); HEMOGLOBIN 8.1 g/dl (13.5-17.5); MEAN CORPUSCULAR HEMOGLOBIN 29.3 pg (27.0-33.0); MEAN CORPUSCULAR HGB CONC 30.7 g/dl (32.0-36.5); MEAN CORPUSCULAR VOLUME 95.7 fl (80.0-96.0); PLATELET COUNT, AUTOMATED 251 10^3/uL (150-450); RED BLOOD COUNT 2.76 10^6/uL (4.30-6.10); WHITE BLOOD COUNT 8.8 10^3/uL (4.0-10.0)
[2020-07-23] MEDS: CARVedilol 6.25 MG TAB PO SCH ×2 (06:27→23:16)
[2020-07-23 06:49] LABS: C REACTIVE PROTEIN QUANTITATIV 15.1 MG/DL (0.00-0.30); CALCIUM LEVEL 8.7 MG/DL (8.5-10.1); CREATININE FOR GFR 5.37 MG/DL (0.70-1.30); PHOSPHORUS LEVEL 3.1 MG/DL (2.5-4.9); POTASSIUM SERUM 4.1 MEQ/L (3.5-5.1)
[2020-07-23] MEDS ORDERED: MIDAZOLAM INJ 2MG/2ML VIAL (J2250 PER 1MG) As Ordered ONE (07:08)
[2020-07-23] MEDS ORDERED: LIDOCAINE 2% 100MG/5ML SDV (FOR ANES.) As Ordered ONE (07:08)
[2020-07-23] MEDS ORDERED: fentaNYL 100 MCG/2 ML INJECTION (J3010) As Ordered ONE (07:08)
[2020-07-23] MEDS ORDERED: ONDANSETRON 4MG/2ML VIAL As Ordered ONE (07:08)
[2020-07-23] MEDS ORDERED: propofoL 200 MG/20 ML VIAL As Ordered ONE (07:08)
[2020-07-23] MEDS: ADVAIR HFA 230/21MCG INHALER INH SCH ×2 (07:16→20:02)
[2020-07-23] MEDS ORDERED: LIDOCAINE 1% MDV 20ML VIAL As Ordered ONE (07:28)
[2020-07-23] MEDS ORDERED: BUPIVACAINE HCL 0.5% 10ML VIAL As Ordered ONE (07:29)
[2020-07-23] MEDS: CALCIUM ACETATE 667MG GELCAP PO SCH ×3 (08:00→17:35)
[2020-07-23] MEDS: SUCROFERRIC OXYHYDROXIDE 500MG CHEW TAB (VELPHORO) PO SCH ×3 (08:00→17:35)
[2020-07-23] MEDS: HumaLOG INSULIN (NovoLOG) PER UNIT SC SCH ×4 (08:03→21:00)
[2020-07-23] MEDS: LEVEMIR (INSULIN DETEMIR) 1 UNITS/0.01ML SC SCH ×2 (09:00→23:16)
[2020-07-23] MEDS: allopurinoL 100 MG TAB PO SCH (09:00)
[2020-07-23] MEDS: DOCUSATE SODIUM 100 MG CAP PO SCH ×2 (09:00→21:00)
[2020-07-23] MEDS ORDERED: hydrALAZINE 20MG/ML 1ML VIAL (J0360 PER 20MG) As Ordered ONE (09:02)
[2020-07-23] MEDS ORDERED: CLOPIDOGREL 75 MG TAB As Ordered ONE (09:58)
[2020-07-23] MEDS: CLOPIDOGREL 75 MG TAB PO SCH (10:00)
[2020-07-23 10:41] VITALS: BP 176/82
--- NOTE | 2020-07-23 11:49 | IPNPDOC ---
Text Note Date of Service The patient was seen on 07/23/20. NOTE S: Mr Francois says he feels comfortable, had a good night's sleep. He has no acute complaints today. He says he is ready for his surgery today. He feels a little depressed about losing both his toes. O: The pt looks comfotable, he was lying in his bed comfortably. He is NPO since morning for a Rt toe surgery scheduled for today. HEENT: AT/NC, EOMI, No discharge CVS: Normal heart sounds with normal RRR, No murmurs LUNGS: Clear to auscultation, no wheezes/ rhonchi/ rubs/ crackles ABDOMEN: NT/ ND , Tympanitic to percussion, No organomegaly MUSCULOSKELETAL: Good range of motion NEUROLOGICAL: Upper extremity; Good motor strength, sensations intact Lower Extremity: Both the lower extremities are swollen, red and inflamed with multiple open wounds. Popliteal Pulses are still feeble Dorsalis Pedis pulse- Not felt on palpation especially on the left foot. The left foot (surgery site), is dressed- area around the wound is non inflamed and dry. PSYCHIATRIC: Pt is anxious and Sad .No suicidal ideation. ASSESSMENT AND PLAN: >Acute Limb Ischemia with PVD: Pt is on a heparin drip. His LLE Angiography with stenting was done in the hospital by Vascular surgery (bare-metal stent placement in the left superficial femoral artery). -Ultrasound-guided access right brachial axillary graft -Right upper extremity fistulogram and central venogram -Angioplasty right subclavian vein with 12 x 40 [place] balloon at the thoracic outlet -Angioplasty graft venous anastomosis with an 8 x 40 [place] balloon -Completion venogram. -Will start Plavix >Cellulitis: Superimposed cellulitis -Fever resolved - improved leucocytosis (8.0). - c/w Levaquin >His DVT has been ruled out by a normal venous Doppler Ultrasound >Insulin dependant Type 2 Diabetes Mellitus: -His HbA1c was 8. -Patient's blood glucose level is under control on sliding scale and Levimir 40 U. >ESRD: Pt is being managed by Nephrology with scheduled Dialysis ( last Dialysis done on Saturday). Patient's Creatinine is 5.37. > Asthma - well controlled on Ventolin inhaler 2 puffs as needed. DVT prophylaxis - Will start Heparin SQ >IDDM: Pt is well controlled on a sliding scale. He is on 10 U Levemir as he is NPO. We will resume 40 U of Levemir as he starts to eat. VS,Fishbone, I+O VS, Fishbone, I+O Laboratory Tests 07/23/20 05:29 Vital Signs Date Time Temp Pulse Resp B/P (MAP) Pulse Ox O2 Delivery O2 Flow Rate FiO2 07/23/20 10:41 97.5 68 19 176/82 (113) 96 Room Air 07/21/20 14:19 2 I&O- Last 24 Hours up to 6 AM 07/23/20 06:00 Intake Total 1231 ml Output Total 2000 ml Balance -769 ml GME ATTESTATION GME ATTESTATION My faculty preceptor for this patient encounter was physically present during the encounter and was fully available. All aspects of the patient interview, examination, medical decision making process, and medical care plan development were reviewed and approved by the faculty preceptor. The faculty preceptor is aware and concurs with the plan as stated in the body of this note and will attest to such by his/her cosignature. ATTENDING NOTE I, Christian Jackman, have independently examined this patient and performed my own physical exam, as well as reviewed the documentation and edited where necessary. I have discussed in detail with the resident / student the findings and plan of treatment as documented by the resident / student and edited their note. I agree with their findings and treatment plan and have edited their documentation. I will continue to follow the patient during this hospital stay. Al Rosenberg MD Jul 23, 2020 11:07 CHRISTIAN JACKMAN MD Jul 23, 2020 16:31
[2020-07-23 14:00] VITALS: BP 146/84
[2020-07-23 18:00] VITALS: BP 152/84
[2020-07-23 22:00] VITALS: BP 172/78
[2020-07-23] MEDS ORDERED: HEPARIN SOD (PORCINE) 5000UNITS/ML 1ML VIAL/SYRINGE SQ SCH (22:00)
[2020-07-23] MEDS: APIXABAN 5 MG TAB (ELIQUIS) PO SCH (23:15)
[2020-07-23] MEDS: RAMELTEON 8 MG TAB (ROZEREM) PO PRN (23:20)
[2020-07-24] VITALS (9 sets, daily range): BP systolic 144–172; BP diastolic 70–90
[2020-07-24 07:29] LABS: HEMATOCRIT 25.8 % (42.0-52.0); HEMOGLOBIN 7.9 g/dl (13.5-17.5); MEAN CORPUSCULAR HEMOGLOBIN 29.5 pg (27.0-33.0); MEAN CORPUSCULAR HGB CONC 30.6 g/dl (32.0-36.5); MEAN CORPUSCULAR VOLUME 96.3 fl (80.0-96.0); PLATELET COUNT, AUTOMATED 233 10^3/uL (150-450); RED BLOOD COUNT 2.68 10^6/uL (4.30-6.10); WHITE BLOOD COUNT 8.3 10^3/uL (4.0-10.0)
[2020-07-24 07:49] LABS: C REACTIVE PROTEIN QUANTITATIV 12.4 MG/DL (0.00-0.30); CALCIUM LEVEL 8.2 MG/DL (8.5-10.1); CREATININE FOR GFR 7.1 MG/DL (0.70-1.30); GLOMERULAR FILTRATION RATE 8.7 (>56); PHOSPHORUS LEVEL 3.3 MG/DL (2.5-4.9); POTASSIUM SERUM 4.2 MEQ/L (3.5-5.1)
[2020-07-24] MEDS: ADVAIR HFA 230/21MCG INHALER INH SCH ×2 (07:54→20:17)
[2020-07-24] MEDS: LEVEMIR (INSULIN DETEMIR) 1 UNITS/0.01ML SC SCH (08:05)
[2020-07-24] MEDS: HumaLOG INSULIN (NovoLOG) PER UNIT SC SCH ×4 (08:05→21:38)
[2020-07-24] MEDS: CALCIUM ACETATE 667MG GELCAP PO SCH ×3 (08:06→18:22)
[2020-07-24] MEDS: SUCROFERRIC OXYHYDROXIDE 500MG CHEW TAB (VELPHORO) PO SCH ×3 (08:06→18:22)
[2020-07-24] MEDS: APIXABAN 5 MG TAB (ELIQUIS) PO SCH ×2 (08:07→21:36)
[2020-07-24] MEDS: CARVedilol 6.25 MG TAB PO SCH ×2 (08:07→21:37)
[2020-07-24] MEDS: allopurinoL 100 MG TAB PO SCH (08:07)
[2020-07-24] MEDS: DOCUSATE SODIUM 100 MG CAP PO SCH ×2 (08:08→21:00)
[2020-07-24] MEDS: CLOPIDOGREL 75 MG TAB PO SCH (08:08)
--- NOTE | 2020-07-24 09:44 | IPNPDOC ---
Text Note Date of Service The patient was seen on 07/24/20. NOTE Subjective: Patient is a 54 year old male with a PMHx of ESRD on HD (MWF), Paroxysmal A. fib, HTN, Diastolic CHF, CAD (Hx of NSTEMI), PVD s/p placement in femoral artery, IDDM2, Asthma, Pulmonary HTN, Hx of Chronic non-healing L foot ulcer, Chronic venosus stasis, Obesity who presented to the ED with left calf / leg pain and was found to have a left foot ulcer / cellulitis. Patient was admitted to the hospitalist service. Podiatry, Vascular surgery and Nephrology were called on consultation. Patient was seen and examined at the bedside. Patient is reporting that he feels well, denies any pain of his foot. Denies any CP, SOB or palpitations. Has had bowel movements. Denies any abdominal discomfort. Objective: Vitals (See below) General: Lying in bed, no acute distress, comfortable, AAOx3 HEENT: NC, AT CVS: +S1S2 Lungs: Air entry b/l is fair, auscultation is without rhonchi / crackles or wheezing Abdomen: Soft, non-distended / non-tender Extremities: No evidence of edema, - Calf tenderness Assessment and plan: Left foot cellulitis / acute on chronic ulcer - Dressing is clean and intact - Leukocytosis resolved / Afebrile - Cultures noted - MRSA negative - s/p angiogram and angioplasty of LLE on 07/20 - s/p resection of 1st digit on 07/20 - s/p additional resection and close on 07/23 with Podiatry - c/w Levaquin; s/p Vancomycin and Zosyn - c/w Plavix; resumed Eliquis s/p Left leg tingling - possibly 2/2 revascularization - s/p Heparin drip; Resumed Eliquis s/p Constipation - Has had bowel movements yesterday - c/w Bowel regimen as ordered Paroxysmal A. fib - c/w rate control with carvedilol - c/w Eliquis; s/p Heparin drip HTN - BP well controlled - c/w Carvedilol Diastolic CHF - No evidence of fluid overload - c/w HD as scheduled CAD (Hx of NSTEMI) - c/w Plavix IDDM2 - c/w ISS and Levemir ESRD - Will c/w HD (MWF) - Nephrology on consultation - s/p Fistulogram (07/21) Asthma - No evidence of exacerbation - c/w inhaled therapy as ordered DVT prophylaxis - c/w Eliquis VS,Fishbone, I+O VS, Fishbone, I+O Laboratory Tests 07/24/20 05:30 Vital Signs Date Time Temp Pulse Resp B/P (MAP) Pulse Ox O2 Delivery O2 Flow Rate FiO2 07/24/20 08:07 62 176/75 07/24/20 06:00 99.0 19 96 Room Air 07/21/20 14:19 2 I&O- Last 24 Hours up to 6 AM 07/24/20 06:00 Intake Total 1635 ml Output Total 400 ml Balance 1235 ml KIN JACKMAN MD Jul 24, 2020 09:44
[2020-07-25] MEDS: CLOPIDOGREL 75 MG TAB PO SCH (05:56)
[2020-07-25] MEDS: allopurinoL 100 MG TAB PO SCH (05:56)
[2020-07-25] MEDS: APIXABAN 5 MG TAB (ELIQUIS) PO SCH (05:57)
[2020-07-25] MEDS: LevoFLOXacin 500 MG TABLET PO SCH (05:57)
[2020-07-25] MEDS: DOCUSATE SODIUM 100 MG CAP PO SCH ×2 (05:57→21:00)
[2020-07-25] MEDS: CARVedilol 6.25 MG TAB PO SCH ×2 (05:57→21:30)
[2020-07-25 06:00] VITALS: BP 166/72
[2020-07-25 06:06] LABS: HEMATOCRIT 27.7 % (42.0-52.0); HEMOGLOBIN 8.7 g/dl (13.5-17.5); MEAN CORPUSCULAR HEMOGLOBIN 29.6 pg (27.0-33.0); MEAN CORPUSCULAR HGB CONC 31.4 g/dl (32.0-36.5); MEAN CORPUSCULAR VOLUME 94.2 fl (80.0-96.0); PLATELET COUNT, AUTOMATED 251 10^3/uL (150-450); RED BLOOD COUNT 2.94 10^6/uL (4.30-6.10); WHITE BLOOD COUNT 10.4 10^3/uL (4.0-10.0)
[2020-07-25 06:26] LABS: ALBUMIN 2.1 GM/DL (3.2-5.2); C REACTIVE PROTEIN QUANTITATIV 11.7 MG/DL (0.00-0.30); CALCIUM LEVEL 8.5 MG/DL (8.5-10.1); CREATININE FOR GFR 8.09 MG/DL (0.70-1.30); GLOMERULAR FILTRATION RATE 7.5 (>56); PHOSPHORUS LEVEL 3.7 MG/DL (2.5-4.9); POTASSIUM SERUM 4.5 MEQ/L (3.5-5.1)
[2020-07-25] MEDS: HumaLOG INSULIN (NovoLOG) PER UNIT SC SCH ×4 (07:30→21:00)
[2020-07-25] MEDS: ADVAIR HFA 230/21MCG INHALER INH SCH ×2 (07:33→20:18)
[2020-07-25] MEDS: CALCIUM ACETATE 667MG GELCAP PO SCH ×3 (08:00→18:47)
[2020-07-25] MEDS: SUCROFERRIC OXYHYDROXIDE 500MG CHEW TAB (VELPHORO) PO SCH ×3 (08:00→18:47)
[2020-07-25] MEDS: LEVEMIR (INSULIN DETEMIR) 1 UNITS/0.01ML SC SCH (11:25)
--- NOTE | 2020-07-25 11:37 | IPNPDOC ---
Text Note Date of Service The patient was seen on 07/25/20. NOTE Subjective: Patient is a 54 year old male with a PMHx of ESRD on HD (MWF), Paroxysmal A. fib, HTN, Diastolic CHF, CAD (Hx of NSTEMI), PVD s/p placement in femoral artery, IDDM2, Asthma, Pulmonary HTN, Hx of Chronic non-healing L foot ulcer, Chronic venosus stasis, Obesity who presented to the ED with left calf / leg pain and was found to have a left foot ulcer / cellulitis. Patient was admitted to the hospitalist service. Podiatry, Vascular surgery and Nephrology were called on consultation. Patient was seen and examined at the bedside. Patient reports that his night was uneventful. Denies any CP, SOB, or palpitations. Denies any abdominal pain, constipation or diarrhea. Objective: Vitals (See below) General: Lying in bed, appears to be comfortable, AAOx3 HEENT: NC, AT CVS: +S1S2 Lungs: Fair air entry b/l without evidence of rhonchi / crackles or wheezing Abdomen: remains soft, no distention / tenderness Extremities: No evidence of LE edema, - Calf tenderness Assessment and plan: Left foot cellulitis / acute on chronic ulcer - Dressing is clean and intact - Leukocytosis resolved / Afebrile - Cultures noted - MRSA negative - s/p angiogram and angioplasty of LLE on 07/20 - s/p resection of 1st digit on 07/20 - s/p additional resection and close on 07/23 with Podiatry - c/w Levaquin; s/p Vancomycin and Zosyn - c/w Plavix for 30 days (as per Vascular surgery) and Eliquis indefinitely (re: A. fib) - Podiatry on consult; Discussed case anticipate possibly discharge tomorrow if cleared by PT s/p Left leg tingling - possibly 2/2 revascularization - c/w Eliquis s/p Heparin drip s/p Constipation - Has had bowel movements yesterday - c/w Bowel regimen as ordered Paroxysmal A. fib - c/w rate control with carvedilol - c/w Eliquis; s/p Heparin drip HTN - BP well controlled - c/w Carvedilol Diastolic CHF - No evidence of fluid overload - c/w HD as scheduled CAD (Hx of NSTEMI) - c/w Plavix for 30 days IDDM2 - c/w ISS and Levemir ESRD - c/w HD (MWF) - Nephrology on consultation - s/p Fistulogram and revision (07/21) Asthma - No evidence of exacerbation - c/w inhaled therapy as ordered DVT prophylaxis - c/w Eliquis Disposition: - Anticipate DC within 24 hours - Discussed weight bearing status of Left foot; currently NWB VS,Fishbone, I+O VS, Fishbone, I+O Laboratory Tests 07/25/20 05:29 Vital Signs Date Time Temp Pulse Resp B/P (MAP) Pulse Ox O2 Delivery O2 Flow Rate FiO2 07/25/20 06:00 98.4 70 17 166/72 (103) 96 Room Air 07/21/20 14:19 2 I&O- Last 24 Hours up to 6 AM 07/25/20 05:59 Intake Total 2480 ml Output Total 950 ml Balance 1530 ml KIN JACKMAN MD Jul 25, 2020 11:37
[2020-07-25] MEDS ORDERED: LIDOCAINE 1% MDV 20ML VIAL As Ordered ONE (13:12)
[2020-07-25 14:00] VITALS: BP 158/80
[2020-07-25 22:00] VITALS: BP 168/70
[2020-07-26 06:00] VITALS: BP 168/80
[2020-07-26 06:44] LABS: C REACTIVE PROTEIN QUANTITATIV 12.1 MG/DL (0.00-0.30)
[2020-07-26] MEDS: ADVAIR HFA 230/21MCG INHALER INH SCH ×2 (07:08→20:38)
[2020-07-26] MEDS: DOCUSATE SODIUM 100 MG CAP PO SCH ×3 (07:59→21:00)
[2020-07-26] MEDS: CLOPIDOGREL 75 MG TAB PO SCH (08:00)
[2020-07-26] MEDS: allopurinoL 100 MG TAB PO SCH (08:00)
[2020-07-26] MEDS: CALCIUM ACETATE 667MG GELCAP PO SCH ×3 (08:00→17:33)
[2020-07-26] MEDS: CARVedilol 6.25 MG TAB PO SCH ×2 (08:02→21:10)
[2020-07-26] MEDS: SUCROFERRIC OXYHYDROXIDE 500MG CHEW TAB (VELPHORO) PO SCH ×3 (08:03→17:33)
[2020-07-26] MEDS: LEVEMIR (INSULIN DETEMIR) 1 UNITS/0.01ML SC SCH (08:03)
[2020-07-26] MEDS: HumaLOG INSULIN (NovoLOG) PER UNIT SC SCH ×4 (08:04→21:09)
[2020-07-26 10:18] LABS: HEMATOCRIT 27.4 % (42.0-52.0); HEMOGLOBIN 8.3 g/dl (13.5-17.5); MEAN CORPUSCULAR HGB CONC 30.3 g/dl (32.0-36.5); MEAN CORPUSCULAR VOLUME 95.8 fl (80.0-96.0); PLATELET COUNT, AUTOMATED 244 10^3/uL (150-450); RED BLOOD COUNT 2.86 10^6/uL (4.30-6.10); WHITE BLOOD COUNT 9.3 10^3/uL (4.0-10.0)
[2020-07-26 10:47] LABS: ALBUMIN 2.2 GM/DL (3.2-5.2); CALCIUM LEVEL 8.2 MG/DL (8.5-10.1); CREATININE FOR GFR 5.56 MG/DL (0.70-1.30); GLOMERULAR FILTRATION RATE 11.5 (>56); PHOSPHORUS LEVEL 3.8 MG/DL (2.5-4.9); POTASSIUM SERUM 4.5 MEQ/L (3.5-5.1)
[2020-07-26] MEDS ORDERED: VANCOMYCIN HCL 1,000 MG, VIAL MATE ADAPTER 1 EACH in D5W 250 ML IV ONE (11:00)
[2020-07-26] MEDS ORDERED: VANCOMYCIN HCL 500 MG in D5W MINI-BAG PLUS 100 ML IV ONE (12:00)
[2020-07-26 14:00] VITALS: BP 174/88
--- NOTE | 2020-07-26 14:56 | IPN ---
DATE: 07/25/2020 SUBJECTIVE: Patient was seen and examined at the bedside today morning getting hemodialysis procedure. He is tolerating the hemodialysis procedure well. He denies any active complaints at this time. OBJECTIVE: Vital signs: Temperature 98.4 degrees Fahrenheit, blood pressure 166/72, pulse 70, respiratory rate 17, saturating 96% on room air. Intake and output: Urine output recorded as 450 mL. Weight in the bed scale is 113.5 kg. PHYSICAL EXAMINATION: GENERAL: Patient is awake, alert and oriented x3, lying in bed in no apparent distress. HEAD AND NECK: Extraocular muscles intact. Pupils equally round and reactive to light. Mucous membranes are moist. Neck is supple. There is no JVD. CARDIOVASCULAR: S1, S2, regular rate. He has 1+edema of the bilateral lower extremities. RESPIRATORY: Chest is clear to auscultation bilaterally. Bilateral equal air entry. No rales or rhonchi. ABDOMEN: Soft, positive bowel sounds, nontender. No organomegaly. MUSCULOSKELETAL: The patient has a dressing on the left foot. He has 1+ edema in the extremities. PSYCHOTHERAPIST SOCIAL WORKER: No focal deficit. Power is 5/5 in all extremities. AV ACCESS: He has a right upper arm AV graft, which is being used for dialysis. He also has a left IJ tunneled hemodialysis catheter. LABORATORY REVIEW: CBC showed WBC 10.4, hemoglobin 8.7, platelets 251,000. BMP showed sodium 134, potassium 4.5, chloride 99, bicarb 26, BUN 60, creatinine 8, calcium 8.5. Phosphorus 3.7. C-reactive protein 11.7, which is improving. CURRENT INPATIENT MEDICATIONS: The patient's medications were all reviewed by myself. There is no significant change in the medications today as compared with yesterday. ASSESSMENT AND PLAN: 1. End-stage renal disease: Patient is tolerating hemodialysis. Ultrafiltration goal will be 2 liters as tolerated by his blood pressure. 2. Anemia and end-stage renal disease: Patient continues to be on Aranesp and Venofer. He also got 1 unit of PRBCs transfusion yesterday. Hemoglobin level is improving. 3. Paroxysmal atrial fibrillation: His heart rate is controlled, continue current dose of Eliquis and Coreg. 4. Left leg cellulitis: Patient is currently on antibiotics. He is status post left second toe amputation. The rest of the management is as per podiatry. [facility]
[2020-07-26] MEDS ORDERED: **VANCO AFTER HD** MISC XX SCH (16:00)
--- NOTE | 2020-07-26 16:50 | IPNPDOC ---
Text Note Date of Service The patient was seen on 07/26/20. NOTE Subjective: no overnight events Objective: Vitals (See below) General: Lying in bed, appears to be comfortable, AAOx3 HEENT: NC, AT CVS: +S1S2 Lungs: Fair air entry b/l without evidence of rhonchi / crackles or wheezing Abdomen: remains soft, no distention / tenderness Extremities: No evidence of LE edema, - Calf tenderness Assessment and plan: Patient is a 54 year old male with a PMHx of ESRD on HD (MWF), Paroxysmal A. fib, HTN, Diastolic CHF, CAD (Hx of NSTEMI), PVD s/p placement in femoral artery, IDDM2, Asthma, Pulmonary HTN, Hx of Chronic non-healing L foot ulcer, Chronic venosus stasis, Obesity who presented to the ED with left calf / leg pain and was found to have a left foot ulcer / cellulitis. Patient was admitted to the hospitalist service. Podiatry, Vascular surgery and Nephrology were called on consultation Left foot cellulitis / acute on chronic ulcer - Dressing is clean and intact - Leukocytosis resolved / Afebrile - Cultures noted - MRSA negative - s/p angiogram and angioplasty of LLE on 07/20 - s/p resection of 1st digit on 07/20 - s/p additional resection and close on 07/23 with Podiatry - c/w Levaquin; s/p Vancomycin and Zosyn - c/w Plavix for 30 days (as per Vascular surgery) and Eliquis indefinitely (re: A. fib) - Podiatry on consult s/p Left leg tingling - possibly 2/2 revascularization - c/w Eliquis s/p Heparin drip s/p Constipation - Has had bowel movements yesterday - c/w Bowel regimen as ordered Paroxysmal A. fib - c/w rate control with carvedilol - c/w Eliquis; s/p Heparin drip HTN - hypertensive - c/w Carvedilol; will add amlodipine 5mg Diastolic CHF - No evidence of fluid overload - c/w HD as scheduled CAD (Hx of NSTEMI) - c/w Plavix for 30 days IDDM2 - c/w ISS and Levemir ESRD - c/w HD (MWF) - Nephrology on consultation - s/p Fistulogram and revision (07/21) Asthma - No evidence of exacerbation - c/w inhaled therapy as ordered DVT prophylaxis - c/w Eliquis Disposition: - Anticipate DC within 24 hours -PermCath removal tomorrow VS,Emilie, I+O VS, Misbahbone, I+O Laboratory Tests 07/26/20 05:33 Vital Signs Date Time Temp Pulse Resp B/P (MAP) Pulse Ox O2 Delivery O2 Flow Rate FiO2 07/26/20 14:00 97.5 76 20 174/88 (116) 100 Room Air 07/21/20 14:19 2 I&O- Last 24 Hours up to 6 AM 07/26/20 05:59 Intake Total 1890 ml Output Total 4000 ml Balance -2110 ml GAIL CHERRY DO Jul 26, 2020 16:50
[2020-07-26] MEDS ORDERED: amLODIPine 5 MG TAB PO ONE (17:00)
[2020-07-26 22:00] VITALS: BP 158/78
[2020-07-27 06:00] VITALS: BP 168/89
[2020-07-27] MEDS: DOCUSATE SODIUM 100 MG CAP PO SCH ×2 (06:10→21:00)
[2020-07-27] MEDS: allopurinoL 100 MG TAB PO SCH (06:16)
[2020-07-27] MEDS: LevoFLOXacin 500 MG TABLET PO SCH (06:16)
[2020-07-27] MEDS: CARVedilol 6.25 MG TAB PO SCH ×2 (06:17→22:27)
[2020-07-27] MEDS: ADVAIR HFA 230/21MCG INHALER INH SCH ×2 (07:13→19:26)
[2020-07-27] MEDS: amLODIPine 5 MG TAB PO SCH (08:18)
[2020-07-27] MEDS: CALCIUM ACETATE 667MG GELCAP PO SCH ×3 (08:18→17:59)
[2020-07-27] MEDS: HumaLOG INSULIN (NovoLOG) PER UNIT SC SCH ×4 (08:20→22:28)
[2020-07-27] MEDS: LEVEMIR (INSULIN DETEMIR) 1 UNITS/0.01ML SC SCH (08:21)
[2020-07-27] MEDS: SUCROFERRIC OXYHYDROXIDE 500MG CHEW TAB (VELPHORO) PO SCH ×3 (08:21→17:59)
[2020-07-27] MEDS: CLOPIDOGREL 75 MG TAB PO SCH (08:36)
--- NOTE | 2020-07-27 08:50 | IPN ---
DATE: 07/26/2020 SUBJECTIVE: Patient was seen and examined today morning. He was sitting up in sofa. He was dialyzed yesterday 3 liters of fluid was removed. He denies any active complaints. He is getting regular dressing of his left foot. However his C-reactive protein is still high, I have started the patient on I.V. Vancomycin today and he was getting his antibiotics when I saw him. OBJECTIVE: Vital signs: Temperature 98.6 degrees Fahrenheit, blood pressure 168/80, pulse 74, respiratory rate 20, saturating 97% on room air. Intake and output: Urine output recorded as 350 mL. Ultrafiltration with hemodialysis was 3 liters. Weight in the bed scale is 119.3 kg, which is not very liable because there is 6 kg difference yesterday. PHYSICAL EXAMINATION: GENERAL: Patient is awake, alert and oriented x3, sitting up in the sofa in no apparent distress. HEAD AND NECK: Extraocular muscles intact. Pupils equally round and reactive to light. Mucous membranes are moist. Neck is supple. He has a left IJ tunneled hemodialysis catheter. CARDIOVASCULAR: S1, S2, regular rate. He has 2+edema of the bilateral lower extremities. RESPIRATORY: Chest is clear to auscultation bilaterally. Bilateral equal air entry. No rales or rhonchi. ABDOMEN: Soft, positive bowel sounds, nontender. No organomegaly. MUSCULOSKELETAL: He has a dressing on the left foot and 2+ edema of the extremities. ENDOSCOPY SPECIALTY TECHNICIAN: No focal deficit. Power is 5/5 in bilateral upper extremities. LABORATORY REVIEW: CBC showed WBC 9.3, hemoglobin 8.3, platelets 244,000. BMP showed sodium 138, potassium 4.5, chloride 102, bicarb 30, BUN 42, creatinine 5.5. Phosphorus 3.8. C-reactive protein 11.7 yesterday and 12.1 today. CURRENT INPATIENT MEDICATIONS: The patient's medications were all reviewed by myself. He continues to be on Levaquin for infected left foot. I have added Vancomycin to be given after each dialysis session. There is no significant change in the medications today as compared with yesterday. ASSESSMENT AND PLAN: 1. End-stage renal disease: Patient is hemodialysis dependent. He was dialyzed yesterday. Next hemodialysis should be done tomorrow morning. 2. Anemia and end-stage renal disease: Hemoglobin level is still suboptimal. He was given one unit of PRBCs transfusion. Continue current dose of Venofer and Aranesp with dialysis. His hemoglobin stays low, then Aranesp dose will be increased to 300 mcg 3. Left foot diabetic infection: Patient is status post amputation of first and second toes. Podiatry is on board. He continues to be on Levaquin. I have added vancomycin because of persistently elevated C-reactive protein levels. 4. Chronic kidney disease/mineral bone disease: Patient has been started on Velphoro. Phosphorus level is significantly better. 5. Diabetes mellitus type 2 insulin dependent: Patient is currently on insulin Levemir and Lispro sliding scale. Glucose levels are well controlled. 6. Chronic gout secondary to chronic kidney disease: Continue current dose of Allopurinol 100 mg p.o. daily. MTDD
[2020-07-27 09:35] LABS: HEMATOCRIT 27.6 % (42.0-52.0); HEMOGLOBIN 8.4 g/dl (13.5-17.5); MEAN CORPUSCULAR HGB CONC 30.4 g/dl (32.0-36.5); MEAN CORPUSCULAR VOLUME 95.2 fl (80.0-96.0); PLATELET COUNT, AUTOMATED 234 10^3/uL (150-450); WHITE BLOOD COUNT 7.2 10^3/uL (4.0-10.0)
[2020-07-27 10:24] LABS: ALBUMIN 2.1 GM/DL (3.2-5.2); C REACTIVE PROTEIN QUANTITATIV 9.47 MG/DL (0.00-0.30); CALCIUM LEVEL 8.3 MG/DL (8.5-10.1); CREATININE FOR GFR 7.18 MG/DL (0.70-1.30); GLOMERULAR FILTRATION RATE 8.6 (>56); PHOSPHORUS LEVEL 5.2 MG/DL (2.5-4.9); POTASSIUM SERUM 5.5 MEQ/L (3.5-5.1)
[2020-07-27 10:32] LABS: ANISOCYTOSIS 1+; ATYPICAL LYMPH 4 % (0-5); EOSINOPHILS 1 % (0-3); LYMPHOCYTES 23 % (16-44); MONOCYTES 12 % (0-5); MYELOCYTES 2 % (0-0); NEUTROPHILS 56 % (28-66); PLATELET ESTIMATE NORMAL (NORMAL)
[2020-07-27] MEDS ORDERED: LIDOCAINE 1% SDV 5ML VIAL SQ ONE (12:00)
[2020-07-27] MEDS ORDERED: LIDOCAINE 1% MDV 20ML VIAL As Ordered ONE (13:50)
[2020-07-27 15:27] VITALS: BP 148/82
[2020-07-27 15:34] VITALS: BP 148/82
[2020-07-27] MEDS ORDERED: VANCOMYCIN HCL 1,000 MG, VIAL MATE ADAPTER 1 EACH in D5W 250 ML IV SCH (16:00)
[2020-07-27] MEDS ORDERED: DARBEPOETIN 300 MCG/0.6 ML *DIALYSIS* SYRINGE (J0882) IV SCH (18:30)
[2020-07-27 22:00] VITALS: BP 114/53
[2020-07-27] MEDS: APIXABAN 5 MG TAB (ELIQUIS) PO SCH (22:27)
[2020-07-27] MEDS: RAMELTEON 8 MG TAB (ROZEREM) PO PRN (22:32)
[2020-07-28 06:00] VITALS: BP 128/52
[2020-07-28] MEDS: ADVAIR HFA 230/21MCG INHALER INH SCH (07:30)
[2020-07-28] MEDS: SUCROFERRIC OXYHYDROXIDE 500MG CHEW TAB (VELPHORO) PO SCH ×3 (08:52→17:42)
[2020-07-28] MEDS: CALCIUM ACETATE 667MG GELCAP PO SCH ×3 (08:53→17:42)
[2020-07-28] MEDS: amLODIPine 5 MG TAB PO SCH (08:53)
[2020-07-28 08:54] VITALS: BP 128/52
[2020-07-28] MEDS: allopurinoL 100 MG TAB PO SCH (08:54)
[2020-07-28] MEDS: APIXABAN 5 MG TAB (ELIQUIS) PO SCH (08:54)
[2020-07-28] MEDS: CLOPIDOGREL 75 MG TAB PO SCH (08:54)
[2020-07-28] MEDS: CARVedilol 6.25 MG TAB PO SCH (08:54)
[2020-07-28] MEDS: HumaLOG INSULIN (NovoLOG) PER UNIT SC SCH ×3 (08:56→17:43)
[2020-07-28] MEDS: DOCUSATE SODIUM 100 MG CAP PO SCH (08:56)
[2020-07-28] MEDS ORDERED: LEVEMIR (INSULIN DETEMIR) 1 UNITS/0.01ML SC SCH (09:00)
[2020-07-28] MEDS ORDERED: FLUBLOK(EGG FREE)(QUAD)INFLUENZA VACC 0.5ML SYRINGE 18YRS & OLDER IM ONE (11:00)
[2020-07-28] MEDS ORDERED: AMLO1TAB24 PO (11:22)
[2020-07-28] MEDS ORDERED: CLOP75TA2 PO (11:22)
[2020-07-28] MEDS ORDERED: LEVA1TAB2 PO ×4 (11:22→13:05)
--- NOTE | 2020-07-28 12:13 | CR ---
DATE OF CONSULTATION: 07/18/2020 CONSULTATION REPORT FOR: Jhonathan Shin MD REASON FOR CONSULTATION: To assist in the management of end-stage renal disease. HISTORY OF PRESENT ILLNESS: Mr. Parrish is a 54-year-old male with known history of longstanding diabetes, hypertension, lower extremity wounds, and end-stage renal disease. He is being admitted for a diabetic foot ulcer on his left foot. Patient missed his dialysis treatment today and a nephrology consultation was requested for dialysis. PAST MEDICAL AND SURGICAL HISTORY: Significant for: 1. Insulin-dependent diabetes. 2. Hypertension. 3. Paroxysmal atrial fibrillation. 4. History of diastolic congestive heart failure. 5. History of coronary artery disease with prior myocardial infarction (PR). 6. History of pulmonary hypertension. 7. Peripheral vascular disease. 8. History of chronic venous stasis and lymphedema of both lower extremities. 9. History of obesity. 10. History of noncompliance in the past. Past surgical history is significant for cholecystectomy, tonsillectomy, left knee reconstruction surgery, previous ulcers on his lower extremities, and some toe amputations and debridements. FAMILY HISTORY: Negative for end-stage renal disease. PERSONAL AND SOCIAL HISTORY: Patient lives with his family. He denies any alcohol or drug use. MEDICATIONS: Home medications include: - allopurinol 100 mg daily - Eliquis 5 mg twice a day - calcium acetate one tablet three times a day with meals - carvedilol 6.25 mg twice a day - NovoLog insulin per sliding scale - Levemir insulin 80 units twice a day - Velphoro 500 mg three times a day with meals - torsemide 20 mg two tablets daily - albuterol inhaler as needed for dyspnea - Advair twice a day two puffs ALLERGIES: Patient has allergy to ASPIRIN, garlic, and syrup. REVIEW OF SYSTEMS: Patient reports significant pain and swelling in his left foot. He also has a wound and swelling on his right leg. He denies any fever or chills. Ears, nose, and throat are unremarkable. Cardiovascular system is significant for diastolic congestive heart failure and paroxysmal atrial fibrillation and flutter. He denies any dyspnea or chest pain at present. Respiratory system is negative for cough or hemoptysis. He has known history of asthma. Psychosocial system is significant for chronic noncompliance. He has no anxiety or depression at present diagnosed. Endocrine system is significant for insulin requiring diabetes and secondary hyperparathyroidism. Musculoskeletal system is significant for chronic stasis ulcers on both lower extremities and lymphedema. Neurological system negative for seizures and stroke. Skin has chronic stasis and ulcers on both lower extremities. PHYSICAL EXAMINATION: Patient is awake and alert at the time of my visit in the emergency room. Temperature 99.5 degrees Fahrenheit, heart rate 76 per minute, and respiratory rate 20 per minute. Blood pressure 142/66 mmHg and oxygen saturation 96% on room air. His head is atraumatic. Neck is supple and jugular venous distention (JVD) not abnormally elevated. He has a Permacath on right upper chest. Pupils are equal and reactive to light and sclerae is anicteric. Heart sounds are regular and lungs sound clear to auscultation. Abdomen is soft and nontender and bowel sounds are normal. Extremities without any cyanosis or clubbing. Right arm arteriovenous (AV) graft is patent. He has chronic stasis changes in both lower extremities. A large diabetic ulcer on the bottom of left 1st metatarsal joint is noticed. He also has a large ulcer on his right leg with chronic lymphedema. Neurologically he is awake, alert, and at his baseline mentation without a focal deficit. LABORATORY DATA: WBC count 17.1, hemoglobin 9.3, and hematocrit 29.5. Platelets 277. Sodium 130, potassium 5.1, CO2 31, BUN 72, and creatinine 9.28. Glucose 184 and calcium 9.0. BNP level is 7442, total protein 8.5, and albumin 2.6. TSH level 2.15. Left foot x-ray showed soft tissue gas within the 1st digit and no definite evidence for acute osteomyelitis. An MRI is also done and report is pending. PROBLEMS: 1. End-stage renal disease. Patient has been on maintenance hemodialysis three times a week. He is regularly dialyzed on Saturday, Saturday, and Saturday schedule. He did miss his dialysis today and we will dialyze him tomorrow. 2. Hyponatremia. He has mild hyponatremia which is related to end-stage renal disease and likely to improve with dialysis. At this point, no emergent indication for any intervention. 3. Congestive heart failure. Patient has known history of diastolic congestive heart failure. However, he is oxygenating well on room air at present 98%. There is no emergent need for dialysis tonight and we will plan to dialyze him tomorrow morning. 4. Anemia. He has anemia of end-stage renal disease and we will manage it with dialysis. We will start with Aranesp and check his iron studies. 5. Diabetic foot ulcer on the left side and stasis also on the right leg. I would suggest to start with vancomycin and Zosyn in view of risk for methicillin-resistant Staphylococcus aureus (MRSA) in this gentleman. His wound cultures should be obtained in addition to blood culture. Dose should be adjusted for end-stage renal disease for both Zosyn and vancomycin. Thank you for involving me in the care of Mr. Parrish. I will follow him along with. YOON
--- NOTE | 2020-07-28 12:17 | CR ---
DATE: 07/18/2020 REASON FOR CONSULTATION: Left foot infection. HISTORY OF PRESENT ILLNESS: Jarocho Parrish is a pleasant 54-year-old male who was admitted to the Emergency Room due to worsening condition of his left foot. He states he has had an ulcer present for several months, but has slowly progressively gotten worse. He states he was supposed to have seen the wound care center, but has not followed there at least in over a month. PAST MEDICAL HISTORY: Significant for end-stage renal disease on hemodialysis Saturday, Saturday and Saturday, insulin dependent diabetes with neuropathy, chronic asthma, paroxysmal atrial flutter, chronic hypertension, diastolic CHF, coronary artery disease with history of NSTEMI, pulmonary hypertension, peripheral vascular disease with history of stent placement, chronic lower extremity wounds with history of osteomyelitis, chronic venous changes and lymphedema, and obesity. PAST SURGICAL HISTORY: Includes tonsillectomy, cholecystectomy, left knee surgery and lower extremity arterial stents. FAMILY HISTORY: Includes diabetes, hypertension. SOCIAL HISTORY: Denies alcohol or tobacco use. ALLERGIES: Aspirin, garlic and silver. REVIEW OF SYSTEMS: Positive for fevers and ulceration. PHYSICAL EXAMINATION: Vitals are examined; T-max 103.7 and current 100.5. Lower extremity examination; there is edema to bilateral legs, pedal pulses are non- palpable and non-Dopplerable on both feet. There is an ulceration to the right anterior nelson at the fibrous base. There is an ulceration on the plantar aspect of the first metatarsal head with full eschar, unstageable with positive malodor. There is ruborous discoloration to the hallux, which is cold to touch. LABORATORY DATA: Labs are reviewed; white blood cell count 17.1, hemoglobin 9.3. ESR 126. CRP 32.3. IMAGING STUDIES: Reviewed. Foot x-ray shows soft tissue emphysema in the hallux. ASSESSMENT: This is a 54-year-old diabetic male with end-stage renal disease on dialysis with soft tissue gas gangrene at the left foot. PLAN: Findings discussed with patient. Given severity of infection, patient will be brought to the Operating Room for left hallux and first metatarsal amputation. Vascular surgery has been consulted. He most likely will require vascular intervention as he does not have palpable pulses. This can be performed after amputation. He has been started on empiric antibiotics. We will plan on further intraoperative cultures. He is to be n.p.o. after morning breakfast. MTDD
[2020-07-28] MEDS ORDERED: NORV5TAB PO ×2 (12:58→13:07)
[2020-07-28] MEDS ORDERED: PLAV1TAB2 PO (13:08)
[2020-07-28 14:00] VITALS: BP 150/50
--- NOTE | 2020-07-28 18:41 | IPNPDOC ---
Text Note Date of Service The patient was seen on 07/27/20. NOTE Subjective: no overnight events Objective: Vitals (See below) General: Lying in bed, appears to be comfortable, AAOx3 HEENT: NC, AT CVS: +S1S2 Lungs: Fair air entry b/l without evidence of rhonchi / crackles or wheezing Abdomen: remains soft, no distention / tenderness Extremities: No evidence of LE edema, - Calf tenderness Assessment and plan: Patient is a 54 year old male with a PMHx of ESRD on HD (MW), Paroxysmal A. fib, HTN, Diastolic CHF, CAD (Hx of NSTEMI), PVD s/p placement in femoral artery, IDDM2, Asthma, Pulmonary HTN, Hx of Chronic non-healing L foot ulcer, Chronic venosus stasis, Obesity who presented to the ED with left calf / leg pain and was found to have a left foot ulcer / cellulitis. Patient was admitted to the hospitalist service. Podiatry, Vascular surgery and Nephrology were called on consultation Left foot cellulitis / acute on chronic ulcer - Dressing is clean and intact - Leukocytosis resolved / Afebrile - Cultures noted - MRSA negative - s/p angiogram and angioplasty of LLE on 07/20 - s/p resection of 1st digit on 07/20 - s/p additional resection and close on 07/23 with Podiatry - c/w Levaquin; s/p Vancomycin and Zosyn - c/w Plavix for 30 days (as per Vascular surgery) and Eliquis indefinitely (re: A. fib) - Podiatry on consult s/p Left leg tingling - possibly 2/2 revascularization - c/w Eliquis s/p Heparin drip s/p Constipation - Has had bowel movements yesterday - c/w Bowel regimen as ordered Paroxysmal A. fib - c/w rate control with carvedilol - c/w Eliquis; s/p Heparin drip HTN - hypertensive - c/w Carvedilol; will add amlodipine 5mg Diastolic CHF - No evidence of fluid overload - c/w HD as scheduled CAD (Hx of NSTEMI) - c/w Plavix for 30 days IDDM2 - c/w ISS and Levemir ESRD - c/w HD (MWF) - Nephrology on consultation - s/p Fistulogram and revision (07/21) Asthma - No evidence of exacerbation - c/w inhaled therapy as ordered DVT prophylaxis - c/w Eliquis Disposition: - Anticipate DC within 24 hours VS,Emilie, I+O VS, Emilie, I+O Vital Signs Date Time Temp Pulse Resp B/P (MAP) Pulse Ox O2 Delivery O2 Flow Rate FiO2 07/28/20 14:00 98.1 94 20 150/50 (83) 96 Room Air I&O- Last 24 Hours up to 6 AM 07/28/20 06:00 Intake Total 1860 ml Output Total 3525 ml Balance -1665 ml GAIL CHERRY DO Jul 28, 2020 18:40
--- NOTE | 2020-07-28 18:52 | DS.PDOC ---
Discharge Summary General Date of Admission Jul 18, 2020 at 15:55 Date of Discharge 07/28/20 Discharge Summary PROCEDURES PERFORMED DURING STAY: [None]. ADMITTING DIAGNOSES: 1. . DISCHARGE DIAGNOSES: 1. . COMPLICATIONS/CHIEF COMPLAINT: Esrd Infected Ulcer Of Skin. HISTORY OF PRESENT ILLNESS: . HOSPITAL COURSE: . DISCHARGE MEDICATIONS: Please see below. ALLERGIES: Please see below. PHYSICAL EXAMINATION ON DISCHARGE: VITAL SIGNS: Please see below. GENERAL: HEENT: NECK: Date of Admission: 07/18/2020 Date of Discharge: 07/28/2020 Attending Physician: Stacia PCP: see below Admission Diagnosis: nonhealing left foot ulcer. Discharge Diagnosis: diabetic foot ulcer status post deployment and amputation of left foot 1st/2nd digit status post bare-metal stent placement Secondary Diagnoses: left bare-metal peripheral vascular stent Consultations: podiatry, vascular, nephrology Procedures: left 1st/2nd digit amputation and deployment, peripheral vascular bare-metal stent placement, fistulogram revision. HPI: 54-year-old male past medical history of ESR D on hemodialysis, paroxysmal aphid on eloquence, hypertension, insulin-dependent diabetes mellitus, CAD presented the concerns of nonhealing left foot ulcer Hospital Course: patient's initial wound was to [facility] podiatry and s ubsequently underwent 1st/2nd digit amputation. Vascular was consulted and obtained angiogram of his extremities and placed bare-metal stent. Nephrology for management of dialysis. During the hospital stay he underwent his fistulogram revision, functional on discharge. Initial empiric antibiotics de- escalated to Levaquin following cultural sensitivity, continue Levaquin for another 10 days with renal dosing. Further continuity of antibiotics per wound assessment. Physical Exam: General: no acute distress HEENT: normocephalic Neck: supple Heart: normal heart sounds Lungs: no abnormalities on auscultation GI: soft Neuro: no focal deficits Psych: normal mood vitals as below Pending Lab or Test Results: no pending Discharge Disposition: nonhealing left foot ulcer status post bare-metal's stent placement status post left first digit amputation Diet: cardiac Discharge Medications: as listed Follow-up Appointments: vascular in one to two weeks, podiatry within one week, nephrology for hemodialysis. PCP within 1 to 2 weeks. Time spent: 25 minutes Vital Signs/I&Os Vital Signs Date Time Temp Pulse Resp B/P (MAP) Pulse Ox O2 Delivery O2 Flow Rate FiO2 07/28/20 14:00 98.1 94 20 150/50 (83) 96 Room Air I&O- Last 24 Hours up to 6 AM 07/28/20 06:00 Intake Total 1860 ml Output Total 3525 ml Balance -1665 ml Microbiology Microbiology 07/22/20 Stool Occult Blood (KOLBY) - Final, Complete 07/19/20 Anaerobic Culture - Final, Complete 07/19/20 Gram Stain - Final, Complete 07/19/20 Wound Culture - Final, Complete Proteus Penneri Enterococcus Faecalis 07/18/20 Wound Culture - Final, Complete Proteus Vulgaris Staphylococcus Aureus 07/18/20 Blood Culture - Final, Complete NO GROWTH AFTER 5 DAYS 07/18/20 Blood Culture - Final, Complete NO GROWTH AFTER 5 DAYS Discharge Medications Scheduled Allopurinol (Allopurinol) 100 Mg Tablet, 100 MG PO DAILY, (Reported) Amlodipine Besylate (Norvasc) 5 Mg Tablet, 5 MG PO DAILY Apixaban (Eliquis) 5 Mg Tablet, 5 MG BID, (Reported) Calcium Acetate (Calcium Acetate) 667 Mg Tablet, 667 MG PO TID, (Reported) with meals Carvedilol (Carvedilol) 6.25 Mg Tablet, 6.25 MG PO BID, (Reported) Clopidogrel Bisulfate (Plavix) 75 Mg Tablet, 75 MG PO DAILY Insulin Aspart (Novolog Flexpen) 100 Unit/Ml Inj, 1 DOSE SC ACHS, (Reported) PER SLIDING SCALE Insulin Detemir (Levemir) 100 Unit/1 Ml Vial, 80 UNITS SC BID, (Reported) Levofloxacin (Levaquin) 500 Mg Tablet, 500 MG PO Q2D Sucroferric Oxyhydroxide (Velphoro) 500 Mg Tab.chew, 1,000 MG PO TID, (Reported) with meals Torsemide (Torsemide) 20 Mg Tablet, 40 MG PO DAILY, (Reported) Scheduled PRN Albuterol Sulfate (Ventolin Hfa) 108 Mcg/Act Aer, 2 PUFF INH Q4H PRN for SHORTNESS OF BREATH, (Reported) Fluticasone Propion/Salmeterol (Advair Hfa 230-21 Mcg Inhaler) 12 Gm Hfa.aer.ad, 2 PUFF INH BID PRN for SOB/WHEEZING, (Reported) Allergies Coded Allergies: aspirin (Verified Allergy, Unknown, 04/21/20) garlic (Verified Adverse Reaction, Intermediate, syncope, 04/21/20) silver (Verified Adverse Reaction, Intermediate, angulo, 04/21/20) GAIL CHERRY DO Jul 28, 2020 18:52
--- NOTE | 2020-07-29 12:44 | IPN ---
DATE: 07/27/2020 SUBJECTIVE: The patient was seen and examined at the bedside today morning during hemodialysis procedure. He is tolerating the hemodialysis procedure well. He denies any active complaints at this time. Pain in the left foot is optimized. He continues to be on I.V. antibiotics. OBJECTIVE: Vital Signs: Temperature 97.6 degrees Fahrenheit, blood pressure 148/82, pulse 89, respiratory rate 18, saturating 97% on room air. Intake and output: Urine output recorded as 350 mL. Weight in the bed scale is 121 kg. PHYSICAL EXAMINATION: GENERAL: Patient is awake, alert and oriented x3, lying in bed, in no apparent distress. HEAD AND NECK: Extraocular muscles intact. Pupils equally round and reactive to light. Mucous membranes are moist. Neck is supple. He has a left IJ tunneled hemodialysis catheter. CARDIOVASCULAR: S1, S2, regular rate. 2+ edema of the bilateral lower extremities. RESPIRATORY: Chest is clear to auscultation bilaterally. Bilateral equal air entry. No rales or rhonchi. ABDOMEN: Soft. Positive bowel sounds. Nontender. No organomegaly. MUSCULOSKELETAL: Patient has a dressing on the left foot surgical site and he has a compression bandage on the right leg. PULVERIZER TENDER: No focal deficit. Power is 5/5 in all extremities. LABORATORY REVIEW: CBC shows WBC 7.2, hemoglobin 8.4, platelets 234,000. BMP showed sodium 135, potassium 5.5, chloride 100, bicarb 25, BUN 68, creatinine 7.1. Phosphorus 5.2. CURRENT INPATIENT MEDICATIONS: Patient's medications were all reviewed by myself. Patient continues to be on oral Levaquin. I.V. Vancomycin has been stopped. No other significant change in the medications today as compared with yesterday. ASSESSMENT AND PLAN: 1. End-stage renal disease: Patient is being dialyzed according to his regular schedule. Ultrafiltration goal will be 3 liters as tolerated by his blood pressure. 2. Anemia and end-stage renal disease: Hemoglobin level is still suboptimal. He continues to be on Aranesp 200 mcg with dialysis along with I.V. Venofer. I am going to increase his Aranesp dose to 300 mcg. 3. Hyperkalemia: Patient is being dialyzed with 2K and 1K Bath. Potassium should improve with that. 4. Left foot cellulitis; status post left first and second toe amputations: Patient currently is on Levaquin. I.V. Vancomycin has been stopped by the medical team. C-reactive protein is slowly getting better. The rest of the management is as per podiatry. 5. Paroxysmal atrial fibrillation: Continue current dose of Coreg. He is anticoagulated with Eliquis. 6. Chronic diastolic congestive heart failure: Volume status is getting better, it is being optimized with dialysis. Continue the fluid restriction. 7. Chronic kidney disease/mineral bone disease: Continue current dose of calcium acetate and Velphoro with meals. MTDD
--- NOTE | 2020-07-29 12:47 | IPN ---
DATE: 07/28/2020 SUBJECTIVE: Patient was seen and examined at the bedside today morning. He is afebrile, hemodynamically stable. He was dialyzed yesterday and 3 liters of fluid was removed. He denies any active complaints. He also reports that a left IJ tunneled hemodialysis catheter was removed by IR yesterday. OBJECTIVE: Vital Signs: Temperature 97.9 degrees Fahrenheit, blood pressure 128/52, pulse 77, respiratory rate 16, saturating 98% on room air. Intake and output: Urine output recorded as 275 mL. UF with dialysis at 3 liters. Weight in the bed scale is 120.6 kg. PHYSICAL EXAMINATION: GENERAL: Patient is awake, alert and oriented x3, lying in bed, in no apparent distress. HEAD AND NECK: Extraocular muscles intact. Pupils equally round and reactive to light. Mucous membranes are moist. Neck is supple. There is no JVD. CARDIOVASCULAR: S1, S2, regular rate. 1+ edema of the bilateral lower extremities. RESPIRATORY: Chest is clear to auscultation bilaterally. Bilateral equal air entry. No rales or rhonchi. ABDOMEN: Soft. Positive bowel sounds. Nontender. No organomegaly. MUSCULOSKELETAL: He has dressing on the left foot and a compression bandage on the right leg. LIFE SKILLS INSTRUCTOR: No focal deficit. Power is 5/5 in bilateral upper extremities. LABORATORY REVIEW: CBC from yesterday and BMP from yesterday and both of the labs were reviewed. CURRENT INPATIENT MEDICATIONS: Patient's medications were all reviewed by myself. There is no significant change in the medications today except that his insulin dose has been changed to 25 units subcutaneously twice a day. Vancomycin has been stopped. ASSESSMENT AND PLAN: 1. End-stage renal disease: Patient is getting dialysis Saturday, Saturday, Saturday. He was dialyzed yesterday. Next hemodialysis will be tomorrow morning. 2. Anemia and end-stage renal disease: He continues to be on Venofer. Aranesp dose was already increased to 300 mcg. 3. Left foot infection; status post amputation of left first and second toe. He continues to be on I.V. Levaquin; dose and duration of antibiotics is as per medical team. 4. Chronic kidney disease/mineral bone disease: Continue current dose of Velphoro and calcium acetate. 5. Diabetes mellitus type 2 insulin dependent: Insulin dose has been decreased. He continues to be on insulin sliding scale as well. 6. Hypertension: Continue current dose of Amlodipine and Carvedilol. MTDD
--- NOTE | 2020-07-29 12:55 | IPN ---
DATE OF VISIT: 07/28/2020 HISTORY: The patient was seen and examined. He denies new complaints other than his surgical bouffant hat which was taken from his room. He denies complaints about his foot. VITALS SIGNS: Vitals are reviewed. He has remained afebrile. LABS: Labs are reviewed. White blood cell count is 7.2. CRP is trending down, yesterday 9.47. LOWER EXTREMITY EXAMINATION: Erythema and edema are reduced. The flap remains viable. There is some bloody tissue within the wound, but no necrotic tissue or purulence. ASSESSMENT: This 55-year-old male with osteomyelitis abscess, status post first and second ray amputation with flap closure. PLAN: The patient will be discharged to rehab today. Continue current wound care dressings, Hydrofera blue and Optilock change every other day. I will try to order him a new bouffant cap prior to his discharge. YOON
--- NOTE | 2020-08-12 15:07 | RO ---
DATE OF OPERATION: 07/23/2020 SURGEON: Sanjay Edwards DPM. SUPPLY CATALOGUER: None. PREOPERATIVE DIAGNOSIS: Left foot ulcer and infection. POSTOPERATIVE DIAGNOSIS: Left foot ulcer and infection. PROCEDURE: Left foot second toe and metatarsal amputation with flap closure. ANESTHESIA: Monitored anesthesia care. Preop injection of 20 mL of 1:1 mixture of 1% lidocaine plan and 0.5% Marcaine plain. ESTIMATED BLOOD LOSS: 50 mL. SPECIMEN: Left second toe and metatarsal. COMPLICATIONS: None. CONDITION: Stable. INDICATIONS: Jarocho Parrish is a 55-year-old male who has been treated for left foot abscess and infection. He had partial first ray amputation earlier this week followed by an angiogram with stent. He has a continued large ulceration so decision was made to bring him to the operating room for removal of the second toe and partial wound closure. Patient, site, and side were identified and marked in the preoperative holding area. Consent was reviewed and obtained. The risks, complications, and alternatives to the procedure were explained to the patient in detail, and all questions were answered. DESCRIPTION OF PROCEDURE: The patient was brought to the operating room and placed on the operating table in the supine position. Monitored anesthesia care was delivered by the anesthesia team. Preop injection of 20 mL of a 1:1 mixture of 1% plain and 0.5% Marcaine plain were injected in the left foot, and left foot was prepped and draped in the normal sterile fashion. Tourniquet was applied to the left ankle but was not inflated during the procedure. The wound was inspected. The second metatarsal was visible within the wound. There was some necrotic tissue at the wound margins. Necrotic tissue was removed using #15 blade, and the soft tissue around the second metatarsal was dissected, and the second metatarsal was resected using a sagittal saw, approximately mid shaft, and this was sent for pathology. Next, attention was paid to the second toe. The medial incision was made, and the phalanges of the bone were carefully dissected free. Site was irrigated with normal saline. Approximately 0.5 cm piece of the first metatarsal was then resected with sagittal saw to aid in wound closure. Site was then irrigated with normal saline, and Bovie was used to maintain hemostasis. Wound was closed using 3-0 nylon, and the skin from the second toe was rotated to aid in closure. Full closure was not able to be maintained due to soft tissue deficit. The remaining wound was packed with saline gauze. Dry gauze dressings were applied over top of this. Patient was brought to PACU with vital signs stable and neurovascular status intact. He will be readmitted to the floor. He can resume his Plavix. Will monitor. YOON
--- NOTE | 2020-08-15 11:13 | IPN ---
DATE: 07/19/2020 SUBJECTIVE: Mr. Parrish is seen this morning at his bedside. He just returned back from radiology after getting an MRI of his foot. Patient is nauseated and not feeling well. He denies any dyspnea or chest pain. He has no fever or chills at present. He is currently being treated for a diabetic foot ulcer with I.V. antibiotics and pain medications. PHYSICAL EXAMINATION: Patient is awake and without any acute distress. He is nauseated, but not short of breath. Temperature 97 degrees Fahrenheit, heart rate 88 per minute, respiratory rate 24 per minute, blood pressure 145/68 mmHg and oxygen saturation 93% on room air. Head is atraumatic. Neck supple and without JVD or thyroid enlargement. Heart sounds are regular. Lungs sound clear to auscultation. Abdomen is obese, soft, nontender and bowel sounds are normal. Extremities without any cyanosis or clubbing. Left foot ulcer has no drainage and is covered with eschar. On the right leg, he has enlarged ulcer with chronic stasis changes and skin excoriation. Neurologically he is awake, alert, and at his baseline mentation. LABORATORY DATA: Today labs: WBC 10.2, hemoglobin 8.0, hematocrit 25.1, platelets 211,000. Sodium 133, potassium 4.1, CO2 29, BUN 84, creatinine 10.0, calcium 8.4 and phosphorus 5.1. Lactic acid level 0.7. PROBLEMS: 1. End-stage renal disease: Patient did miss his dialysis yesterday. We will dialyze him today. There is no emergent indication for dialysis, however, he needs to be dialyzed as he missed his dialysis yesterday and he is at risk for uremic symptoms. 2. Anemia: His anemia has worsened, though there is no active blood loss noticed. Will start with Aranesp 200 mcg once a week with dialysis. 3. Diabetic foot ulcer: Patient is going to have debridement of his wound by Dr. Edwards today. He is currently n.p.o. He remains on Zosyn and Vancomycin. 4. Peripheral vascular disease: Patient has known history of peripheral vascular disease and he just came back from radiology after getting an MRA; results are pending. 5. Hypertension: At present his blood pressure is well controlled and current antihypertensive medications are appropriate. YOON
--- NOTE | 2020-08-15 11:16 | IPN ---
DATE: 07/20/2020 SUBJECTIVE: Mr. Parrish is seen this morning during hemodialysis. He underwent surgery yesterday and his left big toe was amputated by Dr. Edwards. The patient is feeling much better today and afebrile. He denies any nausea, vomiting, dyspnea or chest pain. He had dialysis yesterday due to missed dialysis on Saturday and today is his regular day so he is being dialyzed again today. PHYSICAL EXAMINATION: Temperature 97.5 degrees Fahrenheit, heart rate 90 per minute, respiratory rate 17 per minute, blood pressure 160/88 mmHg and oxygen saturation 95% on room air. Head is atraumatic. Neck supple and without JVD or thyroid enlargement. Heart sounds are regular. Lungs clear to auscultation. Abdomen is soft, protuberant and nontender, bowel sounds are normal. Extremities without any cyanosis or clubbing. Right lower leg wound is covered with dressing and left foot is also wrapped in dressing. Neurologically; he is awake, alert, and oriented x3. LABORATORY DATA: Today labs: WBC 7.9, hemoglobin 8.5, hematocrit 27.9, platelets 221,000. Sodium 135, potassium 4.5, CO2 28, BUN 45, creatinine 6.22, glucose 394 and calcium 8.6. C-reactive protein 30.8. PROBLEMS: 1. End-stage renal disease: Patient is being dialyzed and he is tolerating dialysis very well. Today, we will remove about 2 liters of fluid as tolerate. His volume status is well compensated and electrolytes are within normal range. 2. Anemia: His anemia did get worse following surgery. He has iron deficiency and end-stage renal disease. We will order Venofer 100 mg with each dialysis and also give him 200 mcg of Aranesp once a week. 3. Peripheral vascular disease: Status post amputation of left big toe. Patient is feeling much better today following surgery. He is being followed by podiatry. 4. Hypertension: At present his blood pressure is well controlled on current medications and likely to improve further with fluid removal today and dialysis. No changes are being made today. [facility]
--- NOTE | 2020-08-15 11:22 | RO ---
DATE OF SURGERY: 07/19/2020 SURGEON: Sanjay Edwards DPM CYBER SECURITY ADMINISTRATOR: None. PREOPERATIVE DIAGNOSIS: Left foot gangrene. POSTOPERATIVE DIAGNOSIS: Left foot gangrene. PROCEDURE: Left foot ray amputation. ANESTHESIA: Monitored anesthesia care. PREOPERATIVE INJECTION: 20 cc of a one-to-one mixture of 1% Lidocaine plain and 0.5% Marcaine plain. ESTIMATED BLOOD LOSS: 100 cc. SPECIMEN: Left first ray, aerobic and anaerobic cultures. MATERIALS: None. CONDITION: Stable. COMPLICATIONS: None. INDICATIONS: Jarocho Parrish is a 54-year-old male who was admitted yesterday due to worsening of his left foot wound. On x-ray, he was noted to have gas in his soft tissues. MRI did not show osteomyelitis, but showed myositis. On exam, he had a cyanotic toe and significant malodor. It was decided to bring the patient to the Operating Room for amputation of the first ray. The patient's side and site were identified and marked in the preoperative area. Consent was reviewed and obtained. The risks, complications, and alternatives to the procedure were explained to the patient in detail and all questions were answered. PROCEDURE: The patient was brought to the operating room and placed on the operating room table in the supine position. Monitored anesthesia care was delivered by the anesthesia team. Preoperative injection of 20 cc of a one-to-one mixture of 1% Lidocaine plain and 0.5% Marcaine plain were injected to the left foot. The left foot was prepped and draped in normal sterile fashion. A tourniquet was applied, but was not inflated during the procedure. The left toe was noted to be fully gangrenous with significant malodor extending to the plantar aspect of the first metatarsal head where there was gangrene, eschar and purulence. Cultures swabs were taken of the purulent fluid aerobic and anaerobic. Following this, the toe was disarticulated with a #15 blade at the metatarsophalangeal joint. Significant purulence and black foul tissue was noted along the joint. The necrotic tissue was excised using #15 blade. Following this, the distal half of the first metatarsal was resected with sagittal saw. Some necrotic tissue was adjacent to the second metatarsophalangeal joint. This was removed with ronguer and #15 blade. The site was then irrigated with normal saline. Bovie was used to cauterize small bleeding vessels until hemostasis was obtained. The patient was brought to the PACU with vital signs stable and neurovascular status intact. He will be taken to the floor, continue antibiotics and monitoring. He will most likely require further amputation in part just for a wound closure. Ideally, a vascular intervention can be performed, part of this to improve his blood flow, but potential primary closure could be obtained. Will follow. YOON
--- NOTE | 2020-08-15 11:30 | IPN ---
DATE: 07/21/2020 Mr. Parrish is seen this morning on his bedside. He is in good spirits today and feels better. He went under hemodialysis yesterday, which he tolerated very well. Fluid has been removed, and lower extremity edema has improved significantly. Patient denies any dyspnea, chest pain, nausea, or vomiting. 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 He is currently afebrile and remains on antibiotics. His blood cultures have been negative. PHYSICAL EXAMINATION: Temperature 98 degrees Fahrenheit, heart rate 78 per minute, and respiratory rate 18 per minute. Blood pressure 145/70 mm of mercury and oxygen saturation 97% on room air. His head is atraumatic. Neck is supple and without jugular venous distention (JVD) or thyroid enlargement. There is no oral thrush or ulcers. Heart sounds are regular and lungs clear to auscultation. Abdomen soft and nontender, and bowel sounds are normal. Extremities without any cyanosis or clubbing. Lower extremity edema has improved significantly. His left big toe is surgically absent, and wound is still open. Right leg ulcer is covered with dressing. Neurologically, patient is awake, alert, and at his baseline mentation. Today's labs show WBC count 8.5, hemoglobin 8.5, and hematocrit 27.9, platelets 54. Sodium 136, potassium 3.4, CO2 of 31, BUN 39, and creatinine 4.82. Glucose 242 and calcium 8.0. C-reactive protein was 30.8 yesterday and came down to 20.4 today. A random vancomycin level was 19.6 yesterday. PROBLEMS: 1. End stage renal disease. Patient was dialyzed yesterday and day before yesterday. He will be scheduled for next dialysis tomorrow. 3. Congestive heart failure/hypokalemia. Volume status has improved and optimized with 2 days in a row dialysis. Six liters of fluid has been removed. 3. Hypokalemia. Mild hypokalemia is related to dialysis and would not require a supplement. His electrolytes should be checked again tomorrow morning. Hypokalemia is likely to improve. 4. Anemia. His anemia did get worse, and he also had iron deficiency. We have already started intravenous Venofer and weekly dose of Aranesp. 5. Hypertension. Blood pressure is well controlled on current medications, and no change are being made today. 6. Peripheral vascular disease. Patient had left diabetic foot ulcer. He already had a toe amputation, and podiatry plans to do further amputation of the 2nd toe before the wound will be closed. 7. Peripheral arterial disease. Patient had lower extremity arterial flow study done, which did show severe stenosis of proximal left superficial femoral artery. Patient should have vascular surgery evaluation for possible angioplasty and stent placement. 8. Diabetic foot ulcer, status post amputation of left big toe. Patient remains on antibiotics and is currently afebrile. Wound culture is growing Staphylococcus aureus and Proteus, while blood cultures have been negative so far. [facility]
--- NOTE | 2020-08-15 11:33 | IPN ---
DATE: 07/21/2020 Patient seen and examined at bedside. He states he is feeling much better, having a lot less pain. Vital signs are reviewed. He has remained afebrile over the last 24 hours. Labs are reviewed. White blood cell count is 8.5, hemoglobin is 8.5. CRP trended down to 20.4. Cultures are growing Proteus vulgaris, Staphylococcus aureus, and Proteus penneri. Anaerobic culture is pending. Lower extremity examination: There is no longer any necrotic tissue within the wound. Erythema and edema and odor are greatly improved. ASSESSMENT: A 54-year-old m veronica with gangrene, left foot, status post partial 1st ray amputation. PLAN: Continue antibiotics. Okay to de-escalate to Levaquin. He had his angiogram and angioplasty performed yesterday. Will tentatively plan to bring him to the operating room on Saturday for 2nd toe and ray amputation with ideally wound closure. He will be nothing by mouth after midnight on Saturday night and hold heparin 4 hours prior to surgery. YOON
== END 2020-07-28 18:04 | DRG 252 ==
LOC: M ED 11:00 → M ED INP 15:55 → ENRESERVTM 20:32 → ENRESERVDT 20:32 → M MSPAV 22:05
PROVIDERS: ADMIT Internal Medicine; ATTEND Internal Medicine
PROC: 0Y6Q0Z0 Detachment at Left 1st Toe, Complete, Open Approach (ICD-10-PCS; 2020-07-19)
PROC: 5A1D70Z Performance of Urinary Filtration, Intermittent, Less than 6 Hours Per Day (ICD-10-PCS; 2020-07-19)
PROC: 03WY37Z Revision of Autologous Tissue Substitute in Upper Artery, Percutaneous Approach (ICD-10-PCS; 2020-07-21)
PROC: B54MZZZ Ultrasonography of Right Upper Extremity Veins (ICD-10-PCS; 2020-07-21)
PROC: B51W1ZZ Fluoroscopy of Dialysis Shunt/Fistula using Low Osmolar Contrast (ICD-10-PCS; 2020-07-21)
PROC: 05WY37Z Revision of Autologous Tissue Substitute in Upper Vein, Percutaneous Approach (ICD-10-PCS; principal; 2020-07-21 13:00)
PROC: 30233N1 Transfusion of Nonautologous Red Blood Cells into Peripheral Vein, Percutaneous Approach (ICD-10-PCS; 2020-07-24)
DX: E11.52 Type 2 diabetes mellitus with diabetic peripheral angiopathy with gangrene (principal); N18.6 End stage renal disease; I13.2 Hypertensive heart and chronic kidney disease with heart failure and with stage 5 chronic kidney disease, or end stage renal disease; I50.32 Chronic diastolic (congestive) heart failure; E87.1 Hypo-osmolality and hyponatremia; L03.116 Cellulitis of left lower limb; E11.621 Type 2 diabetes mellitus with foot ulcer; I48.0 Paroxysmal atrial fibrillation; Z79.01 Long term (current) use of anticoagulants; Z79.4 Long term (current) use of insulin; I25.10 Atherosclerotic heart disease of native coronary artery without angina pectoris; L97.529 Non-pressure chronic ulcer of other part of left foot with unspecified severity; Z79.899 Other long term (current) drug therapy; Z88.6 Allergy status to analgesic agent; Z91.018 Allergy to other foods; I25.2 Old myocardial infarction; I27.20 Pulmonary hypertension, unspecified; E66.9 Obesity, unspecified; D63.1 Anemia in chronic kidney disease; J45.909 Unspecified asthma, uncomplicated; I89.0 Lymphedema, not elsewhere classified; E87.6 Hypokalemia; B95.61 Methicillin susceptible Staphylococcus aureus infection as the cause of diseases classified elsewhere; B96.4 Proteus (mirabilis) (morganii) as the cause of diseases classified elsewhere; M10.30 Gout due to renal impairment, unspecified site

== ENCOUNTER 2020-07-28 15:42 | Inpatient (IN) | payer MEDICARE, MEDICAID ==
[~2020-07-28] VITALS: Ht 190.5 cm; Wt 109.0 kg
[~2020-07-28 15:42] MED LIST changes: +CLOP75TA2 PO; +ELIQ5TAB; +NORV5TAB PO; +PLAV1TAB2 PO
[2020-07-28] MEDS ORDERED: GLUCAGON INJ 1MG VIAL SC PRN (15:45)
[2020-07-28] MEDS ORDERED: GLUCOSE 4GM CHEW TABLET PO PRN (15:45)
[2020-07-28] MEDS ORDERED: DEXTROSE 50% 50 ML SYRINGE IV PRN (15:45)
[2020-07-28] MEDS ORDERED: RAMELTEON 8 MG TAB (ROZEREM) PO PRN (15:45)
[2020-07-28 18:10] VITALS: BP 152/76
[2020-07-28] MEDS: IPRATROPIUM 0.5MG/ALBUTEROL 2.5MG INH SOL UD 3ML (DUONEB) NEB SCH (18:40)
[2020-07-28] MEDS: ADVAIR HFA 230/21MCG INHALER INH SCH (18:47)
[2020-07-28 20:00] VITALS: BP 141/67
[2020-07-28] MEDS: DOCUSATE SODIUM 100 MG CAP PO SCH (21:00)
[2020-07-28] MEDS: SENNA 8.6 MG TAB (SENOKOT) PO SCH (21:00)
[2020-07-28] MEDS: REMEDY PHYTOPLEX Z-GUARD PASTE 113GM TUBE (FROM STOREROOM PRODUCT) TOP SCH (21:00)
[2020-07-28] MEDS: APIXABAN 5 MG TAB (ELIQUIS) PO SCH (21:53)
[2020-07-28] MEDS: CARVedilol 6.25 MG TAB PO SCH (21:54)
[2020-07-28] MEDS: LEVEMIR (INSULIN DETEMIR) 1 UNITS/0.01ML SC SCH (21:55)
[2020-07-28] MEDS: HumaLOG INSULIN (NovoLOG) PER UNIT SC SCH (21:55)
[2020-07-29] MEDS: CALCIUM ACETATE 667MG GELCAP PO SCH ×4 (06:15→18:27)
[2020-07-29] MEDS: LevoFLOXacin 750 MG TABLET PO SCH (06:15)
[2020-07-29] MEDS: SUCROFERRIC OXYHYDROXIDE 500MG CHEW TAB (VELPHORO) PO SCH ×4 (06:15→18:27)
[2020-07-29] MEDS: ADVAIR HFA 230/21MCG INHALER INH SCH ×2 (07:17→18:17)
[2020-07-29] MEDS: IPRATROPIUM 0.5MG/ALBUTEROL 2.5MG INH SOL UD 3ML (DUONEB) NEB SCH ×3 (07:17→18:17)
[2020-07-29] MEDS: HumaLOG INSULIN (NovoLOG) PER UNIT SC SCH ×4 (08:00→20:14)
[2020-07-29] MEDS: LEVEMIR (INSULIN DETEMIR) 1 UNITS/0.01ML SC SCH ×2 (08:00→20:20)
[2020-07-29] MEDS: PANTOPRAZOLE 40MG TAB (PROTONIX) PO SCH (08:04)
[2020-07-29] MEDS: CARVedilol 6.25 MG TAB PO SCH ×2 (08:04→20:21)
[2020-07-29] MEDS: CLOPIDOGREL 75 MG TAB PO SCH (08:04)
[2020-07-29] MEDS: allopurinoL 100 MG TAB PO SCH (08:05)
[2020-07-29] MEDS: APIXABAN 5 MG TAB (ELIQUIS) PO SCH ×2 (08:05→20:20)
[2020-07-29] MEDS: DOCUSATE SODIUM 100 MG CAP PO SCH ×2 (08:05→19:30)
[2020-07-29] MEDS: amLODIPine 5 MG TAB PO SCH (08:05)
[2020-07-29] MEDS: TORSEMIDE 20 MG TAB PO SCH (08:05)
[2020-07-29] MEDS: REMEDY PHYTOPLEX Z-GUARD PASTE 113GM TUBE (FROM STOREROOM PRODUCT) TOP SCH ×3 (08:06→19:30)
[2020-07-29] MEDS ORDERED: LIDOCAINE 1% SDV 5ML VIAL SQ ONE (10:30)
--- NOTE | 2020-07-29 11:09 | HPEPDOC ---
[facility] [employer] Note DATE OF ADMISSION: 07-28-20 DATE OF SERVICE: 07-29-20 TIME OF ADMISSION: Please refer to physician's admission order. SOURCE OF ADMISSION INFORMATION: PAtient and [facility] record CHIEF COMPLAINT: left first metatarsal amputation HISTORY OF PRESENT ILLNESS: 54M pmh DM, asthma, Afib, HTN, ESRD on HD, chronic diastolic CHF, CAD s/p NS CHERYL, pulmonary HTN, PVD s/p femoral artery stenting with non-healing lower extremity ulcers presented to [facility] ED on 07-18-20 with left lower extremity pain and admitted for possible osteomyelitis. He was started on Vanco and ZOsyn for broad spectrum coverage and a heparin drip for possible acute limb ischemia. He was seen by podiatry who performed a left first digit and metatarsal amputation followed by a LLE angiogram performed by vascular surgery. He later underwent a fistulogram on 07-21-20. He was transitioned from IV to po Levaquin, evaluated by therapy and deemed medically appropriate for discharge to ARU on 07-28-20. REVIEW OF SYSTEMS: The following is a completed review of systems and has been reviewed. Review of systems otherwise unremarkable. PAIN: Patient self reports no pain EYES: No recent vision changes EARS, NOSE, & THROAT: No throat pain, or dysphagia, or rhinorrhea CARDIOVASCULAR: Denies chest pain or palpitations PULMONARY: Denies shortness of breath GASTROINTESTINAL: Denies constipation/diarrhea GENITOURINARY: denies dysuria MUSCULOSKELETAL: +generalized weakness NEUROLOGICAL:+peripheral neuropathy HEMATOLOGICAL:+ anemia SKIN: left foot surgical incision and right calf blister PSYCHIATRIC: Unremarkable All other review of systems found to be negative. PAST MEDICAL HISTORY: as per HPI' PAST SURGICAL HISTORY: as per HPI and Cholecystectomy, tonsillectomy, left knee reconstruction, right brachial axillary graft 04-28-2020 s/p TPA assisted thrombectomy of graft 06-07-20 ALLERGIES: Please see below. MEDICATIONS: Please see below. SOCIAL HISTORY: No etoh/illicit drugs/smoking DIET: consistent carb PHYSICAL EXAMINATION: VITAL SIGNS: Please see below. GENERAL: Pleasant and cooperative. No acute distress. HEENT: PERRL. Extraocular movements intact. Clear conjunctiva CARDIOVASCULAR: Regular rate and rhythm. No murmurs, rubs, or gallops LUNGS: Clear to auscultation bilaterally. No wheezes. No rhonchi. ABDOMEN: Soft, nontender, nondistended. Positive bowel sounds. Normal active bowel sounds NEUROLOGICAL: Alert and oriented times three. Cranial nerves II through XII grossly intact. Sensation grossly decreased to light touch in stocking patter EXTREMITIES: 5\5 strength bilateral upper extremities. 5\5 strength right lower extremity. 5/5 strength in left hip flexor and knee extensors (limited due to foot surgery) SKIN: left foot wrapped (not examined), right anterior calf with edema and open blister (covered with optifoam) LABORATORY DATA: Please see below. IMAGING:Imaging documentation personally reviewed by record FUNCTIONAL STATUS: Premorbid: Independent with all activities of daily life as well as mobility On Admission: Min assist for functional transfers, ambulation, bed mobility GOALS: Mod-I household distances ambulation, possible need for wheelchair for community mobility and MRADLs, Mod-I dressing, bathing, toileting ASSESSMENT:55-year-old M with past medical history of ESRD who presents status post diabetic left foot wound s/p first metatarsal amputation PLAN: 1. REhab- PT/OT advance mobility and ADLs maintaining NWB to LLE 2. VAsc- s/p left first metatarsal amputation- dressing changes per orders, NWB- c/u Levaquin renally dosed 3 CArdiac- hx of chronic diastolic CHF c/u fluid restriction, fluid management per renal -Hx CAD with NSTEMI and AFib c/u Eliquis , medicine consulted to assist in overall management 4.Renal- ESRD on dialysis- renal consulted -c/u Succroferric 5. Endo- DM with peripheral polyneuropathy c/u insulin and ISS, adjust as needed 6. DVT ppx- on eliquis 7. GI ppx- protonix 8. Pain- Tylenol 9. Dispo-TBD POST ADMISSION PHYSICIAN EVALUATION: Medical and functional status: Description of medical status, medical assessment: As above. Rehabilitation diagnosis and current and prior cold morbid medical conditions as above. Risk of complications and plans to mitigate them as above. Description of functional status current status is as above. Prior status as above. Status compared to preadmission: There are no clinically significant differences between the patient's current status and the information described on the preadmission screening document. Treatment plan anticipated: Treatment plan is as described above. Required disciplines including physical therapy, occupational therapy, others as noted above Intensity of services: 3 hours a day, 6 days a week. Special considerations: There are no specific special or safety considerations that would likely preclude immediate implementation of an intensive rehabilitation program or subsequently influence the plan of care. ATTESTATION: Considering all the information above, it is my best judgment that this patient requires intensive rehabilitation therapy as described above and an inpatient hospital environment due to the complexity of nursing, medical, and rehabilitation needs required by the patient. Furthermore, this patient can reasonably be expected to participate in an benefit from an inpatient rehabilitation stay with an interdisciplinary team approach to the delivery of rehabilitation care under the direction and supervision of rehabilitation physi angelita. PROGNOSIS: good ESTIMATED LENGTH OF STAY:14-16 days. PROJECTED DISCHARGE DESTINATION: Home with family support and any durable medical equipment required to increase functional safety and mobility TIME SPENT COUNSELING AND COORDINATING INITIAL CARE: Greater than 70 minutes. Vital Signs Vital Sign - Last 24 Hours 07/28/20 07/28/20 07/28/20 07/29/20 18:10 20:00 21:54 06:00 Temp 98.1 98.3 97.2 Pulse 94 79 79 87 Resp 16 17 18 B/P (MAP) 152/76 (101) 141/67 (91) 141/67 Pulse Ox 99 94 94 O2 Delivery Room Air Room Air Room Air 07/29/20 07/29/20 08:04 08:05 Pulse 74 74 B/P (MAP) 170/70 170/70 Home Medications Scheduled Allopurinol (Allopurinol) 100 Mg Tablet, 100 MG PO DAILY, (Reported) Amlodipine Besylate (Norvasc) 5 Mg Tablet, 5 MG PO DAILY Apixaban (Eliquis) 5 Mg Tablet, 5 MG BID, (Reported) Calcium Acetate (Calcium Acetate) 667 Mg Tablet, 667 MG PO TID, (Reported) with meals Carvedilol (Carvedilol) 6.25 Mg Tablet, 6.25 MG PO BID, (Reported) Clopidogrel Bisulfate (Plavix) 75 Mg Tablet, 75 MG PO DAILY Insulin Aspart (Novolog Flexpen) 100 Unit/Ml Inj, 1 DOSE SC ACHS, (Reported) PER SLIDING SCALE Insulin Detemir (Levemir) 100 Unit/1 Ml Vial, 80 UNITS SC BID, (Reported) Levofloxacin (Levaquin) 500 Mg Tablet, 500 MG PO Q2D Sucroferric Oxyhydroxide (Velphoro) 500 Mg Tab.chew, 1,000 MG PO TID, (Reported) with meals Torsemide (Torsemide) 20 Mg Tablet, 40 MG PO DAILY, (Reported) Scheduled PRN Albuterol Sulfate (Ventolin Hfa) 108 Mcg/Act Aer, 2 PUFF INH Q4H PRN for SHORTNESS OF BREATH, (Reported) Fluticasone Propion/Salmeterol (Advair Hfa 230-21 Mcg Inhaler) 12 Gm Hfa.aer.ad, 2 PUFF INH BID PRN for SOB/WHEEZING, (Reported) Allergies Coded Allergies: aspirin (Verified Allergy, Unknown, 04/21/20) garlic (Verified Adverse Reaction, Intermediate, syncope, 04/21/20) silver (Verified Adverse Reaction, Intermediate, angulo, 04/21/20) A-FIB/CHADSVASC A-FIB History Current/History of A-Fib/PAF?: Yes Current PO Anticoag Therapy: Yes ARIANA MANN MD Jul 29, 2020 11:09
[2020-07-29 11:24] LABS: BASO % 0.3 % (0.0-1.0); BASO % 0.5 % (0.0-1.0); EOS # 0.1 10^3/uL (0.0-0.5); EOS % 1.5 % (0.0-3.0); EOS % 1.8 % (0.0-3.0); HEMATOCRIT 28.9 % (42.0-52.0); HEMOGLOBIN 8.9 g/dl (13.5-17.5); LYMPH # 1.4 10^3/uL (1.5-5.0); LYMPH % 20.8 % (24.0-44.0); LYMPH % 21.6 % (24.0-44.0); MEAN CORPUSCULAR HEMOGLOBIN 28.8 pg (27.0-33.0); MEAN CORPUSCULAR HEMOGLOBIN 29.5 pg (27.0-33.0); MEAN CORPUSCULAR HGB CONC 30.8 g/dl (32.0-36.5); MEAN CORPUSCULAR VOLUME 95.7 fl (80.0-96.0); MEAN CORPUSCULAR VOLUME 95.8 fl (80.0-96.0); MONO # 0.6 10^3/uL (0.0-0.8); MONO % 8.9 % (0.0-5.0); MONO % 9.6 % (0.0-5.0); NEUTROPHILS # 4.2 10^3/uL (1.5-8.5); NEUTROPHILS % 64.2 % (36.0-66.0); NEUTROPHILS % 64.6 % (36.0-66.0); PLATELET COUNT, AUTOMATED 252 10^3/uL (150-450); PLATELET COUNT, AUTOMATED 263 10^3/uL (150-450); RED BLOOD COUNT 3.02 10^6/uL (4.30-6.10); RED BLOOD COUNT 3.13 10^6/uL (4.30-6.10); WHITE BLOOD COUNT 6.5 10^3/uL (4.0-10.0); WHITE BLOOD COUNT 6.6 10^3/uL (4.0-10.0)
[2020-07-29] MEDS ORDERED: IRON SUCROSE 100MG 5ML VIAL (J1756 PER 1MG) IV SCH (11:30)
[2020-07-29] MEDS ORDERED: DARBEPOETIN 300 MCG/0.6 ML *DIALYSIS* SYRINGE (J0882) IV SCH (11:30)
[2020-07-29 11:42] LABS: ALBUMIN 2.3 GM/DL (3.2-5.2); CALCIUM LEVEL 8.6 MG/DL (8.5-10.1); CREATININE FOR GFR 6.82 MG/DL (0.70-1.30); GLOMERULAR FILTRATION RATE 9.1 (>56); PHOSPHORUS LEVEL 4.7 MG/DL (2.5-4.9); POTASSIUM SERUM 6.1 MEQ/L (3.5-5.1)
[2020-07-29 11:43] LABS: ALBUMIN 2.4 GM/DL (3.2-5.2); BILIRUBIN,TOTAL 0.5 MG/DL (0.2-1.0); CALCIUM LEVEL 8.7 MG/DL (8.5-10.1); CREATININE FOR GFR 6.93 MG/DL (0.70-1.30); GLOMERULAR FILTRATION RATE 8.9 (>56); TOTAL PROTEIN 7.4 GM/DL (6.4-8.2)
[2020-07-29 16:55] VITALS: BP 158/78
[2020-07-29] MEDS: SENNA 8.6 MG TAB (SENOKOT) PO SCH (19:30)
[2020-07-29 20:00] VITALS: BP 152/72
[2020-07-30 06:32] VITALS: BP 158/90
[2020-07-30] MEDS: IPRATROPIUM 0.5MG/ALBUTEROL 2.5MG INH SOL UD 3ML (DUONEB) NEB SCH ×3 (07:22→18:40)
[2020-07-30] MEDS: ADVAIR HFA 230/21MCG INHALER INH SCH ×2 (07:22→18:40)
--- NOTE | 2020-07-30 08:09 | IPN ---
DATE: 07/29/2020 SUBJECTIVE: Patient was seen and examined at the bedside today morning in the rehab unit. He had just come back after getting physical therapy and reported swelling of his left lower extremity. Today is patient's regular day of dialysis. OBJECTIVE: Vital Signs: Temperature 98.3 degrees Fahrenheit, blood pressure 152/72, pulse 73, respiratory rate 18, saturating 96% on room air. Intake and output: Urine output recorded as 650 mL. Weight in the bed scale was 124 kg yesterday. PHYSICAL EXAMINATION: GENERAL: Patient is awake, alert and oriented x3, sitting up in bed, in no apparent distress. HEAD AND NECK: Extraocular muscles intact. Pupils equally round and reactive to light. Mucous membranes are moist. Neck is supple. There is no JVD. CVS: S1, S2, regular rate. 2+ edema of the left lower extremity and 1+ edema of the right lower extremity. RESPIRATORY: Chest is clear to auscultation bilaterally. Bilateral equal air entry. No rales or rhonchi. ABDOMEN: Soft. Positive bowel sounds. Nontender. No organomegaly. MUSCULOSKELETAL: He has dressing on the left foot and right leg has compression bandage. VAULT PERSON: No focal deficit. Power is 5/5 in bilateral upper extremities. LABORATORY REVIEW: CBC showed WBC 6.6, hemoglobin 9, platelets 263,000. BMP showed sodium 136, potassium 6.1, chloride 101, bicarb 26, BUN 69, creatinine 6.8. Albumin 2.1. CURRENT INPATIENT MEDICATIONS: Patient's medications were all reviewed by myself. His Venofer and Aranesp were restarted; these orders had dropped after transfer to rehab. Otherwise no significant change in the medications today as compared with yesterday. ASSESSMENT AND PLAN: 1. End-stage renal disease: Patient will be dialyzed according to his regular schedule today. Ultrafiltration goal will be 3 liters as tolerated by his blood pressure. 2. Anemia and end-stage renal disease: Hemoglobin level is stable and improving. Continue current dose of Venofer and Aranesp. 3. Hyperkalemia: Patient will be dialyzed with a 2K bath initially and 1K bath later on to improve his potassium status. 4. Hypertension: Continue current dose of Amlodipine and Coreg. 5. Chronic kidney disease/mineral bone disease: Continue current dose of Velphoro and calcium acetate. Phosphorus levels are within acceptable range. MTDD
[2020-07-30] MEDS: CARVedilol 6.25 MG TAB PO SCH ×2 (08:42→20:50)
[2020-07-30] MEDS: PANTOPRAZOLE 40MG TAB (PROTONIX) PO SCH (08:42)
[2020-07-30] MEDS: CALCIUM ACETATE 667MG GELCAP PO SCH ×3 (08:42→17:03)
[2020-07-30] MEDS: SUCROFERRIC OXYHYDROXIDE 500MG CHEW TAB (VELPHORO) PO SCH ×3 (08:43→17:03)
[2020-07-30] MEDS: amLODIPine 5 MG TAB PO SCH (08:43)
[2020-07-30] MEDS: HumaLOG INSULIN (NovoLOG) PER UNIT SC SCH ×4 (08:43→20:52)
[2020-07-30] MEDS: TORSEMIDE 20 MG TAB PO SCH (08:44)
[2020-07-30] MEDS: allopurinoL 100 MG TAB PO SCH (08:44)
[2020-07-30] MEDS: CLOPIDOGREL 75 MG TAB PO SCH (08:44)
[2020-07-30] MEDS: REMEDY PHYTOPLEX Z-GUARD PASTE 113GM TUBE (FROM STOREROOM PRODUCT) TOP SCH ×3 (08:44→20:56)
[2020-07-30] MEDS: LEVEMIR (INSULIN DETEMIR) 1 UNITS/0.01ML SC SCH ×2 (08:44→20:51)
[2020-07-30] MEDS: APIXABAN 5 MG TAB (ELIQUIS) PO SCH ×2 (08:44→20:50)
[2020-07-30] MEDS: DOCUSATE SODIUM 100 MG CAP PO SCH ×2 (08:45→20:53)
[2020-07-30] MEDS: VANICREAM MOISTURIZING SKIN CREAM 113GM TUBE TOP SCH (11:43)
[2020-07-30 14:00] VITALS: BP 125/65
[2020-07-30 20:00] VITALS: BP 132/62
[2020-07-30] MEDS: SENNA 8.6 MG TAB (SENOKOT) PO SCH (20:53)
[2020-07-31] MEDS: LevoFLOXacin 750 MG TABLET PO SCH (05:29)
[2020-07-31 06:03] VITALS: BP 152/82
[2020-07-31] MEDS: ADVAIR HFA 230/21MCG INHALER INH SCH ×2 (07:20→17:56)
[2020-07-31] MEDS: PANTOPRAZOLE 40MG TAB (PROTONIX) PO SCH (07:42)
[2020-07-31] MEDS: allopurinoL 100 MG TAB PO SCH (07:42)
[2020-07-31] MEDS: CLOPIDOGREL 75 MG TAB PO SCH (07:42)
[2020-07-31] MEDS: APIXABAN 5 MG TAB (ELIQUIS) PO SCH ×2 (07:42→20:40)
[2020-07-31] MEDS: CALCIUM ACETATE 667MG GELCAP PO SCH ×3 (07:42→17:22)
[2020-07-31] MEDS: SUCROFERRIC OXYHYDROXIDE 500MG CHEW TAB (VELPHORO) PO SCH ×3 (07:42→17:22)
[2020-07-31] MEDS: HumaLOG INSULIN (NovoLOG) PER UNIT SC SCH ×4 (07:42→20:43)
[2020-07-31] MEDS: TORSEMIDE 20 MG TAB PO SCH (07:43)
[2020-07-31] MEDS: amLODIPine 5 MG TAB PO SCH (07:44)
[2020-07-31] MEDS: CARVedilol 6.25 MG TAB PO SCH ×2 (07:44→20:44)
[2020-07-31] MEDS: DOCUSATE SODIUM 100 MG CAP PO SCH ×2 (07:45→20:39)
[2020-07-31] MEDS: LEVEMIR (INSULIN DETEMIR) 1 UNITS/0.01ML SC SCH ×2 (07:45→20:42)
[2020-07-31] MEDS: REMEDY PHYTOPLEX Z-GUARD PASTE 113GM TUBE (FROM STOREROOM PRODUCT) TOP SCH ×3 (07:45→20:44)
[2020-07-31] MEDS: IPRATROPIUM 0.5MG/ALBUTEROL 2.5MG INH SOL UD 3ML (DUONEB) NEB SCH ×3 (08:00→17:56)
[2020-07-31 14:00] VITALS: BP 140/66
[2020-07-31 20:00] VITALS: BP 156/64
[2020-07-31] MEDS: SENNA 8.6 MG TAB (SENOKOT) PO SCH (20:43)
[2020-08-01 06:00] VITALS: BP 152/67
[2020-08-01] MEDS: ADVAIR HFA 230/21MCG INHALER INH SCH ×2 (07:30→18:00)
[2020-08-01] MEDS: IPRATROPIUM 0.5MG/ALBUTEROL 2.5MG INH SOL UD 3ML (DUONEB) NEB SCH ×3 (08:00→18:00)
[2020-08-01] MEDS: TORSEMIDE 20 MG TAB PO SCH (08:25)
[2020-08-01] MEDS: LEVEMIR (INSULIN DETEMIR) 1 UNITS/0.01ML SC SCH ×2 (08:25→21:26)
[2020-08-01] MEDS: HumaLOG INSULIN (NovoLOG) PER UNIT SC SCH ×4 (08:25→21:27)
[2020-08-01] MEDS: CARVedilol 6.25 MG TAB PO SCH ×2 (08:26→21:27)
[2020-08-01] MEDS: VANICREAM MOISTURIZING SKIN CREAM 113GM TUBE TOP SCH (08:26)
[2020-08-01] MEDS: CALCIUM ACETATE 667MG GELCAP PO SCH ×3 (08:26→17:06)
[2020-08-01] MEDS: REMEDY PHYTOPLEX Z-GUARD PASTE 113GM TUBE (FROM STOREROOM PRODUCT) TOP SCH ×3 (08:26→21:00)
[2020-08-01] MEDS: allopurinoL 100 MG TAB PO SCH (08:26)
[2020-08-01] MEDS: APIXABAN 5 MG TAB (ELIQUIS) PO SCH ×2 (08:26→21:27)
[2020-08-01] MEDS: PANTOPRAZOLE 40MG TAB (PROTONIX) PO SCH (08:26)
[2020-08-01] MEDS: CLOPIDOGREL 75 MG TAB PO SCH (08:26)
[2020-08-01] MEDS: amLODIPine 5 MG TAB PO SCH (08:26)
[2020-08-01] MEDS: DOCUSATE SODIUM 100 MG CAP PO SCH ×2 (08:27→21:00)
[2020-08-01] MEDS: SUCROFERRIC OXYHYDROXIDE 500MG CHEW TAB (VELPHORO) PO SCH ×3 (08:27→17:05)
[2020-08-01] MEDS ORDERED: LIDOCAINE 1% SDV 5ML VIAL SQ ONE (10:30)
--- NOTE | 2020-08-01 10:56 | IPN ---
DATE: 07/30/2020 HISTORY OF PRESENT ILLNESS: Mr. Parrish is seen this morning on his bedside. He is currently sitting in the chair. He reports feeling nauseated and sick to his stomach this morning, but that has improved. He denies any dyspnea or chest pain. He did undergo dialysis yesterday, which he tolerated very well. There is no fever or chills. He had amputation of his first and second toes on his left foot and foot is wrapped in dressing. He has a small ulcer on his right nelson, which is healing, but currently covered with a dressing. Patient had his Permacath removed and dressing is intact at this site. PHYSICAL EXAMINATION: Temperature 97.5 degrees Fahrenheit, heart rate 65 per minute and respiratory rate 18 per minute, blood pressure 158/90 mmHg and oxygen saturation 95% on room air. Head is atraumatic. Neck supple and without JDV or thyroid enlargement. Heart sounds are regular, and lungs clear to auscultation. Abdomen is obese, soft and nontender, and bowel sounds are normal. Extremities without any cyanosis or clubbing. Right arm AV fistula is patent. Left foot is wrapped in dressing with some bleeding on the dressing noticed. Neurologically, he is at his baseline mentation without a focal deficit. LABORATORY DATA: Patient did not have any new labs done today. Yesterday sodium 136, potassium 6.1, BUN 69, creatinine 6.82. Hemoglobin 9, hematocrit 30. PROBLEMS: 1. End-stage renal disease: Patient underwent hemodialysis yesterday. No need for dialysis today. He will be scheduled for next dialysis on Saturday. 2. Chronic leg edema: His volume status is very well compensated. He remains on Torsemide 40 mg daily. 3. Hyperkalemia: Yesterday his potassium level was 6.1, however, he did have dialysis yesterday, so I would anticipate his potassium level to be normal today. Will check his electrolytes again on Saturday before dialysis. 4. Anemia: Related to surgery and blood loss. He is currently on Venofer 100 mg with each dialysis and Aranesp 300 mcg once a week. 5. Diabetic foot ulcer; status post amputation of first and second toes of left foot: Patient is doing well and remains on Levofloxacin 750 mg every 48 hours. He is currently undergoing acute rehab. [facility]
--- NOTE | 2020-08-01 12:09 | IPNPDOC ---
PM&R Progress Note DATE OF SERVICE: Aug 01, 2020 [employer] Progress Note Subjective: Patient seen in dialysis stating his left shoulder feels sore after doing therapy 2 days [address]. he was instructed on doing scapular retraction exercises while in bed and he agrees to trial a topical analgesic. REVIEW OF SYSTEMS: The following is a completed review of systems and has been reviewed. Review of systems otherwise unremarkable. PAIN: Patient self reports no pain EYES: No recent vision changes EARS, NOSE, & THROAT: No throat pain, or dysphagia, or rhinorrhea CARDIOVASCULAR: Denies chest pain or palpitations PULMONARY: Denies shortness of breath GASTROINTESTINAL: Denies constipation/diarrhea GENITOURINARY: denies dysuria MUSCULOSKELETAL: +generalized weakness NEUROLOGICAL:+peripheral neuropathy HEMATOLOGICAL:+ anemia SKIN: left foot surgical incision and right calf blister PSYCHIATRIC: Unremarkable All other review of systems found to be negative. PHYSICAL EXAMINATION: VITAL SIGNS: Please see below. GENERAL: Pleasant and cooperative. No acute distress. HEENT: PERRL. Extraocular movements intact. Clear conjunctiva CARDIOVASCULAR: Regular rate and rhythm. No murmurs, rubs, or gallops LUNGS: Clear to auscultation bilaterally. No wheezes. No rhonchi. ABDOMEN: Soft, nontender, nondistended. Positive bowel sounds. Normal active bow el sounds NEUROLOGICAL: Alert and oriented times three. Cranial nerves II through XII grossly intact. Sensation grossly decreased to light touch in stocking patter EXTREMITIES: 5\5 strength bilateral upper extremities. 5\5 strength right lower extremity. 5/5 strength in left hip flexor and knee extensors (limited due to foot surgery) SKIN: left foot wrapped (not examined), right anterior calf with edema and open blister (covered with optifoam) ASSESSMENT:55-year-old M with past medical history of ESRD who presents status post diabetic left foot wound s/p first metatarsal amputation PLAN: 1. REhab- PT/OT advance mobility and ADLs maintaining NWB to LLE 2. VAsc- s/p left first metatarsal amputation- dressing changes per orders, NWB- c/u Levaquin renally dosed 3 CArdiac- hx of chronic diastolic CHF c/u fluid restriction, fluid management per renal -Hx CAD with NSTEMI and AFib c/u Emily , medicine consulted to assist in overall management 4.Renal- ESRD on dialysis- renal consulted -c/u Succroferric 5. Endo- DM with peripheral polyneuropathy c/u ISS, patient with hyperglycemia, increase levemir to 32 units BID and adjust prn adjust as needed 6. DVT ppx- on eliquis 7. GI ppx- protonix 8. Pain- Tylenol, flector patch to left shoulder for suspected subacromial impingement 9. Dispo-TBD Allergies Coded Allergies: aspirin (Verified Allergy, Unknown, UNKNOWN REACTION A CHILD, 08/01/20) TAKES IBUPROFEN AT HOME garlic (Verified Adverse Reaction, Intermediate, syncope, 04/21/20) silver (Verified Adverse Reaction, Intermediate, angulo, 04/21/20) Vital Signs Vital Signs Date Time Temp Pulse Resp B/P (MAP) Pulse Ox O2 Delivery O2 Flow Rate FiO2 08/01/20 08:26 91 152/67 08/01/20 06:00 97.9 18 97 Room Air Laboratory Data Labs 24H Laboratory Tests 2 07/31/20 16:23: Bedside Glucose (Misc Panel) 240H 07/31/20 19:30: Bedside Glucose (Misc Panel) 276H 08/01/20 05:38: Bedside Glucose (Misc Panel) 229H 08/01/20 11:37: Bedside Glucose (Misc Panel) 252H Current Medications Current Medications Current Medications Medications (Trade) Dose Ordered Sig/Sadaf Route PRN Reason Start Time Stop Time Status Last Admin Dose Admin Acetaminophen (Tylenol Tab) 650 mg Q4HP PRN PO fever/MILD PAIN (PS 1-4) 07/28/20 15:45 Albuterol/ Ipratropium (Duoneb (Ipr 0.5mg/Alb 2.5mg)) 3 ml RTID NEB 07/28/20 20:00 07/31/20 13:25 Allopurinol (Zyloprim) 100 mg DAILY PO 07/29/20 09:00 08/01/20 08:26 Amlodipine Besylate (Norvasc) 5 mg DAILY PO 07/29/20 09:00 08/01/20 08:26 Apixaban (Eliquis) 5 mg BID PO 07/28/20 21:00 08/01/20 08:26 Calcium Acetate (Phoslo) 667 mg WM PO 07/29/20 08:00 08/01/20 11:46 Carvedilol (COReg) 6.25 mg BID PO 07/28/20 21:00 08/01/20 08:26 Clopidogrel Bisulfate (PLAVix) 75 mg DAILY PO 07/29/20 09:00 08/01/20 08:26 Darbepoetin Gagan (Aranesp (Dialysis Use)) 300 mcg HD IV 07/29/20 11:30 Dextrose (Dextrose 50%) 25 ml ASDIRECTED PRN IV SEE LABEL COMMENTS 07/28/20 15:45 Docusate Sodium (Colace) 100 mg BID PO 07/28/20 21:00 07/31/20 20:39 Emollient Cream (Vanicream) 1 dose Q48H TOP 07/30/20 09:00 08/01/20 08:26 Glucagon (Glucagon) 1 mg ASDIRECTED PRN SC SEE LABEL COMMENTS 07/28/20 15:45 Glucose (Glucose) 16 GM ASDIRECTED PRN PO SEE LABEL COMMENTS 07/28/20 15:45 Home Med (Med Rec Complete!) ASDIRECTED XX 07/28/20 19:15 07/28/20 19:03 DC Insulin Detemir (Levemir Insulin) 25 units BID SC 07/28/20 21:00 07/30/20 15:11 DC 07/30/20 08:44 Insulin Detemir (Levemir Insulin) 28 units BID SC 07/30/20 21:00 08/01/20 08:25 Insulin Human Lispro (HumaLOG INSULIN) SEE PROTOCOL TABLE AC SC 07/29/20 07:30 08/01/20 11:46 Insulin Human Lispro (HumaLOG INSULIN) SEE PROTOCOL TABLE QHS SC 07/28/20 21:00 07/31/20 20:43 Iron (Venofer) 100 mg HD IV 07/29/20 11:30 Levofloxacin (Levaquin) 750 mg Q48H PO 07/29/20 06:00 07/31/20 05:29 Pantoprazole Sodium (Protonix) 40 mg DAILY PO 07/29/20 09:00 08/01/20 08:26 Ramelteon (Rozerem) 8 mg QHS PRN PO INSOMNIA 07/28/20 15:45 Salmeterol Xinafoate/ Fluticasone (Advair Hfa 230/ 21) 2 puff RBID INH 07/28/20 20:00 07/31/20 17:56 Senna (Senokot) 1 tab QHS PO 07/28/20 21:00 Sucroferric Oxyhydroxide (Velphoro) 500 mg WM PO 07/29/20 18:00 08/01/20 11:46 Sucroferric Oxyhydroxide (Velphoro) 1,000 mg WM PO 07/29/20 08:00 07/29/20 14:54 DC Torsemide (Demadex) 40 mg DAILY PO 07/29/20 09:00 08/01/20 08:25 ARIANA MANN MD Aug 01, 2020 12:09
[2020-08-01 12:57] LABS: BASO % 0.3 % (0.0-1.0); EOS # 0.2 10^3/uL (0.0-0.5); HEMATOCRIT 32.3 % (42.0-52.0); HEMOGLOBIN 9.8 g/dl (13.5-17.5); LYMPH # 1.3 10^3/uL (1.5-5.0); LYMPH % 17.1 % (24.0-44.0); MEAN CORPUSCULAR HGB CONC 30.3 g/dl (32.0-36.5); MEAN CORPUSCULAR VOLUME 95.6 fl (80.0-96.0); MONO # 0.7 10^3/uL (0.0-0.8); MONO % 9.1 % (0.0-5.0); NEUTROPHILS # 5.1 10^3/uL (1.5-8.5); NEUTROPHILS % 69.7 % (36.0-66.0); PLATELET COUNT, AUTOMATED 305 10^3/uL (150-450); RED BLOOD COUNT 3.38 10^6/uL (4.30-6.10); WHITE BLOOD COUNT 7.4 10^3/uL (4.0-10.0)
[2020-08-01 13:27] LABS: CALCIUM LEVEL 8.8 MG/DL (8.5-10.1); CREATININE FOR GFR 7.85 MG/DL (0.70-1.30); GLOMERULAR FILTRATION RATE 7.7 (>56); POTASSIUM SERUM 6.4 MEQ/L (3.5-5.1)
[2020-08-01 16:45] VITALS: BP 128/62
[2020-08-01] MEDS ORDERED: DICLOFENAC EPOLAMINE 1.3 % PATCH TOP ONE (18:00)
--- NOTE | 2020-08-01 19:20 | HPEPDOC ---
[facility] Medical History & Physical Date of Admission Aug 01, 2020 Date of Service: Aug 01, 2020 Attending Physician: MOHAMUD JI MD History and Physical CHIEF COMPLAINT: Admitted to ARU for rehab. HISTORY OF PRESENT ILLNESS: Mr. Parrish is a pleasant 55 yo M with a hx of ESRD on HD, Afib, DM2, diastolic CHF, CAD s/p NSTEMI, pulmonary HTN, peripheral vascular disease. He presented to [facility] with L lower extremity pain at the site of a nonhelaing ulcer, dx of osteomyelitis. Heparin ggt for possible limb ischemia. Podiatry performed a L hallus and metatarsal amp. Completing course of PO levaquin q48hr after empiric therapy with vanc and zosyn. Admitted to ARU for active rehab. PAST MEDICAL HISTORY: 1. ESRD on hemodialysis MWF 2. Insulin-dependent diabetes mellitus. 3. Chronic Asthma 4. Paroxysmal Atrial flutter 5. Chronic Hypertension 6. Diastolic CHF. 7. CAD- hx of NSTEMI 8. Pulmonary hypertension 9. Peripheral vascular disease status post stent placement in femoral artery 10. History of non healing lower extremity wounds, lower extremity osteomyelitis / Status post left lower extremity wound VAC 11. Chronic venous stasis changes and lymphedema of both his lower extremities. 12. Obesity PAST SURGICAL HISTORY: Cholecystectomy tonsillectomy left knee reconstruction repair Previous wound debridement on the left foot SOCIAL HISTORY: FAMILY HISTORY: non contributory ALLERGIES: Please see below. REVIEW OF SYSTEMS: CONSTITUTIONAL: wnl HEENT: wnl. CARDIOVASCULAR: denies chest pain, palpitation. RESPIRATORY: denies shortness of breath, wheezing. GASTROINTESTINAL: denies abdominal pain, n/v/d. GENITOURINARY: anuric. SKIN: chronic leg swelling. MUSCULOSKELETAL: none. NEUROLOGICAL: none. PSYCHIATRIC: none. ENDOCRINE: . HOME MEDICATIONS: Please see below. PHYSICAL EXAMINATION: GENERAL APPEARANCE: comfortable in bed HEENT: PERRLA, EOMI. CARDIOVASCULAR: RRR, normal S1,S2 LUNGS: CTAB ABDOMEN: soft, nontender, obese. MUSCULOSKELETAL: L foot dressed, not examined. Dressing clean and intact. EXTREMITIES: chronic venous stasis changes. Edema. NEUROLOGICAL: no focal neuro deficit PSYCHIATRIC: calm, pleasant, cooperative LABORATORY DATA: See below. IMAGING: CXR: IMPRESSION: No acute cardiopulmonary abnormality is identified. US duplex LLL IMPRESSION: Proximal left SFA severe stenosis. XR L foot IMPRESSION: 1. Ulceration of the soft tissues at the plantar aspect of the 1st MTP joint. Soft tissue gas within the 1st digit. 2. No definite radiographic evidence of acute osteomyelitis. Consider further evaluation with MRI. MRI L lower extremity: IMPRESSION: 1. Ulceration plantar aspect of the foot at the base of the 1st metatarsal. 2. Bright signal intensity edema of the flexor digitorum brevis muscle and the abductor hallucis muscle consistent with myositis. 3. 8 mm small oval abscess within the flexor hallucis brevis muscle at the navicular and flexor hallucis tendon junction. Series 601 image 1 frame 32. 4. Small amount of fluid surrounding the flexor hallucis tendon at the ulceration Venous duplex IMPRESSION: No evidence of deep vein thrombosis. MICROBIOLOGY: Please see below. ASSESSMENT: Mr. Parrish is a pleasant 55 yo M with a hx of ESRD on HD, Afib, DM2, diastolic CHF, CAD s/p NSTEMI, pulmonary HTN, peripheral vascular disease, treated for osteomyelitis with IV abx, s/p amp 1st toe, hallux, angioplasty of LLE and heparin ggt for suspected limb ischemia. Admitted to ARU for rehab. . PLAN: L foot osteomyelitis - s/p 1st digit resection LLE on 07/20/20 - s/p hallux resection on 07/23 - s/p angiogram and angioplasty of LLE on 07/20 - Levaquin q48 hrs (end date 08/07/20) - Plavix (completing 30 days) - Eliquis ESRD - last HD 08/01/20 - nephrology following IDDM2 - ISS - Levemir - consistent carb diet Anemia - venofer, aranesp Hyperkalemia - on HD Mineral Bone Disease - nephrology following - velphoro, calcium acetate Afib - on eliquis - coreg HTN - amlodipine - coreg CHF - coreg - regular HD for fluid removal CAD - hx NSTEMI - plavix Asthma - duonebs prn DVT ppx: AC on eliquis Vital Signs Vital Signs Date Time Temp Pulse Resp B/P (MAP) Pulse Ox O2 Delivery O2 Flow Rate FiO2 08/01/20 16:45 98.0 82 16 128/62 (84) 97 Room Air Laboratory Data Labs 24H Laboratory Tests 2 07/31/20 19:30: Bedside Glucose (Misc Panel) 276H 08/01/20 05:38: Bedside Glucose (Misc Panel) 229H 08/01/20 11:37: Bedside Glucose (Misc Panel) 252H 08/01/20 12:41: Immature Granulocyte % (Auto) 1.8, Neutrophils (%) (Auto) 69.7H, Lymphocytes (%) (Auto) 17.1L, Monocytes (%) (Auto) 9.1H, Eosinophils (%) (Auto) 2.0, Basophils (%) (Auto) 0.3, Neutrophils # (Auto) 5.1, Lymphocytes # (Auto) 1.3L, Monocytes # (Auto) 0.7, Eosinophils # (Auto) 0.2, Basophils # (Auto) 0.0, Nucleated Red Blood Cells % (auto) 0.0, Anion Gap 9, Glomerular Filtration Rate 7.7L, Calcium Level 8.8 08/01/20 16:53: Bedside Glucose (Misc Panel) 186H CBC/BMP Laboratory Tests 08/01/20 12:41 Home Medications Scheduled Allopurinol (Allopurinol) 100 Mg Tablet, 100 MG PO DAILY Amlodipine Besylate (Norvasc) 5 Mg Tablet, 5 MG PO DAILY Apixaban (Eliquis) 5 Mg Tablet, 5 MG BID Calcium Acetate (Calcium Acetate) 667 Mg Tablet, 667 MG PO TID with meals Carvedilol (Carvedilol) 6.25 Mg Tablet, 6.25 MG PO BID Clopidogrel Bisulfate (Plavix) 75 Mg Tablet, 75 MG PO DAILY Insulin Aspart (Novolog Flexpen) 100 Unit/Ml Inj, 1 DOSE SC ACHS PER SLIDING SCALE Insulin Detemir (Levemir) 100 Unit/1 Ml Vial, 80 UNITS SC BID Levofloxacin (Levaquin) 500 Mg Tablet, 500 MG PO Q2D Sucroferric Oxyhydroxide (Velphoro) 500 Mg Tab.chew, 1,000 MG PO TID with meals Torsemide (Torsemide) 20 Mg Tablet, 40 MG PO DAILY Scheduled PRN Albuterol Sulfate (Ventolin Hfa) 108 Mcg/Act Aer, 2 PUFF INH Q4H PRN for SHORTNESS OF BREATH Fluticasone Propion/Salmeterol (Advair Hfa 230-21 Mcg Inhaler) 12 Gm Hfa.aer.ad, 2 PUFF INH BID PRN for SOB/WHEEZING Allergies Coded Allergies: aspirin (Verified Allergy, Unknown, UNKNOWN REACTION A CHILD, 08/01/20) TAKES IBUPROFEN AT HOME garlic (Verified Adverse Reaction, Intermediate, syncope, 04/21/20) silver (Verified Adverse Reaction, Intermediate, angulo, 04/21/20) A-FIB/CHADSVASC A-FIB History Current/History of A-Fib/PAF?: Yes Current PO Anticoag Therapy: Yes MOHAMUD JI MD Aug 01, 2020 19:20
[2020-08-01 20:00] VITALS: BP 137/66
[2020-08-01] MEDS: SENNA 8.6 MG TAB (SENOKOT) PO SCH (21:00)
[2020-08-01] MEDS: ACETAMINOPHEN TAB 650MG DOSE (2X325MG) PO PRN (21:27)
[2020-08-02] MEDS: LevoFLOXacin 750 MG TABLET PO SCH (05:33)
[2020-08-02 06:12] VITALS: BP 150/70
[2020-08-02 07:22] LABS: CALCIUM LEVEL 8.2 MG/DL (8.5-10.1); CREATININE FOR GFR 5.24 MG/DL (0.70-1.30); GLOMERULAR FILTRATION RATE 12.3 (>56); POTASSIUM SERUM 5.6 MEQ/L (3.5-5.1)
[2020-08-02] MEDS: CLOPIDOGREL 75 MG TAB PO SCH (07:45)
[2020-08-02] MEDS: DICLOFENAC EPOLAMINE 1.3 % PATCH TOP SCH ×2 (07:45→21:07)
[2020-08-02] MEDS: TORSEMIDE 20 MG TAB PO SCH (07:45)
[2020-08-02] MEDS: SUCROFERRIC OXYHYDROXIDE 500MG CHEW TAB (VELPHORO) PO SCH ×3 (07:45→17:22)
[2020-08-02] MEDS: CALCIUM ACETATE 667MG GELCAP PO SCH ×3 (07:45→17:22)
[2020-08-02] MEDS: allopurinoL 100 MG TAB PO SCH (07:45)
[2020-08-02] MEDS: HumaLOG INSULIN (NovoLOG) PER UNIT SC SCH ×4 (07:45→21:00)
[2020-08-02] MEDS: LEVEMIR (INSULIN DETEMIR) 1 UNITS/0.01ML SC SCH ×2 (07:45→21:07)
[2020-08-02] MEDS: APIXABAN 5 MG TAB (ELIQUIS) PO SCH ×2 (07:45→21:05)
[2020-08-02] MEDS: PANTOPRAZOLE 40MG TAB (PROTONIX) PO SCH (07:46)
[2020-08-02] MEDS: IPRATROPIUM 0.5MG/ALBUTEROL 2.5MG INH SOL UD 3ML (DUONEB) NEB SCH ×3 (08:00→18:13)
[2020-08-02] MEDS: ADVAIR HFA 230/21MCG INHALER INH SCH ×2 (08:00→18:13)
[2020-08-02] MEDS: DOCUSATE SODIUM 100 MG CAP PO SCH ×2 (09:00→21:00)
[2020-08-02] MEDS: REMEDY PHYTOPLEX Z-GUARD PASTE 113GM TUBE (FROM STOREROOM PRODUCT) TOP SCH ×3 (09:00→21:00)
--- NOTE | 2020-08-02 09:13 | IPN ---
DATE: 07/31/2020 SUBJECTIVE: Mr. Parrish is seen this morning on his bedside. He is currently in the hallway in a wheelchair doing physical therapy. He denies any nausea, vomiting, dyspnea or chest pain. His last dialysis was performed on Saturday, and next dialysis is due tomorrow. PHYSICAL EXAMINATION: Temperature 97.6 degrees Fahrenheit, heart rate 70 per minute, respiratory rate 18 per minute, blood pressure 156/70 mmHg and oxygen saturation 97% on room air. Head is atraumatic. Neck is supple and without JVD or thyroid enlargement. Heart sounds are regular. Lungs clear to auscultation. Abdomen soft and nontender, and bowel sounds are normal. Extremities without any cyanosis or clubbing. Left foot wound is wrapped in dressing with some minimal bleeding on the dressing. Right leg ulcer is also wrapped in dressing. Neurologically, he is at his baseline mentation without a focal deficit. PROBLEMS: 1. End-stage renal disease: Patient was last dialyzed on Saturday and next dialysis will be scheduled for Saturday. No emergent need for dialysis today. 2. Anemia: His anemia has been stable. Will check the CBC again tomorrow. He will continue with Aranesp once a week. 3. Left diabetic foot ulcer: Patient had amputation of medial two toes of his left foot and still has some bleeding from the wound. He is being followed by podiatry. 4. Congestive heart failure: At present, his volume status is reasonably well compensated. He remains on Torsemide 40 mg daily in addition to fluid removal with dialysis. 5. Hypertension: Blood pressure is very well controlled on current medications, and no changes are being made today. [facility]Jay
--- NOTE | 2020-08-02 10:13 | IPNPDOC ---
PM&R Progress Note DATE OF SERVICE: Aug 02, 2020 [employer] Progress Note Subjective: Patient reporting that the kinesiotaping for his left shoulder seems to be helping a little. He is amenable to trying a muscle relaxant. REVIEW OF SYSTEMS: The following is a completed review of systems and has been reviewed. Review of systems otherwise unremarkable. PAIN: Patient self reports left shoulder pain EYES: No recent vision changes EARS, NOSE, & THROAT: No throat pain, or dysphagia, or rhinorrhea CARDIOVASCULAR: Denies chest pain or palpitations PULMONARY: Denies shortness of breath GASTROINTESTINAL: +loose stools GENITOURINARY: denies dysuria MUSCULOSKELETAL: +generalized weakness NEUROLOGICAL:+peripheral neuropathy HEMATOLOGICAL:+ anemia SKIN: left foot surgical incision and right calf blister PSYCHIATRIC: Unremarkable All other review of systems found to be negative. PHYSICAL EXAMINATION: VITAL SIGNS: Please see below. GENERAL: Pleasant and cooperative. No acute distress. HEENT: PERRL. Extraocular movements intact. Clear conjunctiva CARDIOVASCULAR: Regular rate and rhythm. No murmurs, rubs, or gallops LUNGS: Clear to auscultation bilaterally. No wheezes. No rhonchi. ABDOMEN: Soft, nontender, nondistended. Positive bowel sounds. Normal active bowel sounds NEUROLOGICAL: Alert and oriented times three. Cranial nerves II through XII grossly intact. Sensation grossly decreased to light touch in stocking patter EXTREMITIES: 5\5 strength bilateral upper extremities. 5\5 strength right lower extremity. 5/5 strength in left hip flexor and knee extensors (limited due to foot surgery) +TTP with multiple trigger points along left upper trapezius, +pain with left shoulder internal rotation SKIN: left foot wrapped (not examined), right anterior calf with edema and open blister (covered with optifoam) ASSESSMENT:55-year-old M with past medical history of ESRD who presents status post diabetic left foot wound s/p first metatarsal amputation PLAN: 1. REhab- PT/OT advance mobility and ADLs maintaining NWB to LLE 2. VAsc- s/p left first metatarsal amputation- dressing changes per orders, NWB- c/u Levaquin renally dosed 3 CArdiac- hx of chronic diastolic CHF c/u fluid restriction, fluid management per renal -Hx CAD with NSTEMI and AFib c/u Kaleighqubrandy , medicine consulted to assist in overall management 4.Renal- ESRD on dialysis- renal consulted -c/u Succroferric 5. Endo- DM with peripheral polyneuropathy c/u ISS, patient with hyperglycemia, increase levemir to 36 units BID and adjust prn adjust as needed 6. DVT ppx- on eliquis 7. GI ppx- protonix, patient not taking stool softener/senna will consider sto pping protonix as can cause loose stools 8. Pain- Tylenol, flector patch to left shoulder for suspected subacromial impingement vs RTC, c/u kinesiotaping, will trial baclofen 9. Dispo-TBD Allergies Coded Allergies: aspirin (Verified Allergy, Unknown, UNKNOWN REACTION A CHILD, 08/01/20) TAKES IBUPROFEN AT HOME garlic (Verified Adverse Reaction, Intermediate, syncope, 04/21/20) silver (Verified Adverse Reaction, Intermediate, angulo, 04/21/20) Vital Signs Vital Signs Date Time Temp Pulse Resp B/P (MAP) Pulse Ox O2 Delivery O2 Flow Rate FiO2 08/02/20 06:12 97.5 75 18 150/70 (96) 98 Room Air Laboratory Data CBC/BMP Laboratory Tests 08/01/20 12:41 08/02/20 06:18 Labs 24H Laboratory Tests 2 08/01/20 11:37: Bedside Glucose (Misc Panel) 252H 08/01/20 12:41: Immature Granulocyte % (Auto) 1.8, Neutrophils (%) (Auto) 69.7H, Lymphocytes (%) (Auto) 17.1L, Monocytes (%) (Auto) 9.1H, Eosinophils (%) (Auto) 2.0, Basophils ( %) (Auto) 0.3, Neutrophils # (Auto) 5.1, Lymphocytes # (Auto) 1.3L, Monocytes # (Auto) 0.7, Eosinophils # (Auto) 0.2, Basophils # (Auto) 0.0, Nucleated Red Blood Cells % (auto) 0.0, Anion Gap 9, Glomerular Filtration Rate 7.7L, Calcium Level 8.8 08/01/20 16:53: Bedside Glucose (Misc Panel) 186H 08/01/20 20:05: Bedside Glucose (Misc Panel) 275H 08/02/20 05:27: Bedside Glucose (Misc Panel) 255H 08/02/20 06:18: Anion Gap 7L, Glomerular Filtration Rate 12.3L, Calcium Level 8.2L Current Medications Current Medications Current Medications Medications (Trade) Dose Ordered Sig/Sadaf Route PRN Reason Start Time Stop Time Status Last Admin Dose Admin Acetaminophen (Tylenol Tab) 650 mg Q4HP PRN PO fever/MILD PAIN (PS 1-4) 07/28/20 15:45 08/01/20 21:27 Albuterol/ Ipratropium (Duoneb (Ipr 0.5mg/Alb 2.5mg)) 3 ml RTID NEB 07/28/20 20:00 07/31/20 13:25 Allopurinol (Zyloprim) 100 mg DAILY PO 07/29/20 09:00 08/02/20 07:45 Amlodipine Besylate (Norvasc) 5 mg DAILY PO 07/29/20 09:00 08/01/20 08:26 Apixaban (Eliquis) 5 mg BID PO 07/28/20 21:00 08/02/20 07:45 Calcium Acetate (Phoslo) 667 mg WM PO 07/29/20 08:00 08/02/20 07:45 Carvedilol (COReg) 6.25 mg BID PO 07/28/20 21:00 08/01/20 21:27 Clopidogrel Bisulfate (PLAVix) 75 mg DAILY PO 07/29/20 09:00 08/02/20 07:45 Darbepoetin Gagan (Aranesp (Dialysis Use)) 300 mcg HD IV 07/29/20 11:30 Dextrose (Dextrose 50%) 25 ml ASDIRECTED PRN IV SEE LABEL COMMENTS 07/28/20 15:45 Diclofenac Epolamine (Flector 1.3%) 1 patch Q12H TOP 08/02/20 09:00 08/02/20 07:45 Docusate Sodium (Colace) 100 mg BID PO 07/28/20 21:00 07/31/20 20:39 Emollient Cream (Vanicream) 1 dose Q48H TOP 07/30/20 09:00 08/01/20 08:26 Glucagon (Glucagon) 1 mg ASDIRECTED PRN SC SEE LABEL COMMENTS 07/28/20 15:45 Glucose (Glucose) 16 GM ASDIRECTED PRN PO SEE LABEL COMMENTS 07/28/20 15:45 Home Med (Med Rec Complete!) ASDIRECTED XX 07/28/20 19:15 07/28/20 19:03 DC Insulin Detemir (Levemir Insulin) 25 units BID SC 07/28/20 21:00 07/30/20 15:11 DC 07/30/20 08:44 Insulin Detemir (Levemir Insulin) 28 units BID SC 07/30/20 21:00 08/01/20 12:05 DC 08/01/20 08:25 Insulin Detemir (Levemir Insulin) 32 units BID SC 08/01/20 21:00 08/02/20 07:45 Insulin Human Lispro (HumaLOG INSULIN) SEE PROTOCOL TABLE AC SC 07/29/20 07:30 08/02/20 07:45 Insulin Human Lispro (HumaLOG INSULIN) SEE PROTOCOL TABLE QHS SC 07/28/20 21:00 08/01/20 21:27 Iron (Venofer) 100 mg HD IV 07/29/20 11:30 Levofloxacin (Levaquin) 750 mg Q48H PO 07/29/20 06:00 08/02/20 05:33 Pantoprazole Sodium (Protonix) 40 mg DAILY PO 07/29/20 09:00 08/02/20 07:46 Ramelteon (Rozerem) 8 mg QHS PRN PO INSOMNIA 07/28/20 15:45 Salmeterol Xinafoate/ Fluticasone (Advair Hfa 230/ 21) 2 puff RBID INH 07/28/20 20:00 08/02/20 08:00 Senna (Senokot) 1 tab QHS PO 07/28/20 21:00 Sucroferric Oxyhydroxide (Velphoro) 500 mg WM PO 07/29/20 18:00 08/02/20 07:45 Sucroferric Oxyhydroxide (Velphoro) 1,000 mg WM PO 07/29/20 08:00 07/29/20 14:54 DC Torsemide (Demadex) 40 mg DAILY PO 07/29/20 09:00 08/02/20 07:45 ARIANA MANN MD Aug 02, 2020 10:13
[2020-08-02] MEDS ORDERED: LIDOCAINE 1% SDV 5ML VIAL SQ ONE (10:45)
[2020-08-02] MEDS: CARVedilol 6.25 MG TAB PO SCH ×2 (12:15→21:06)
[2020-08-02] MEDS: amLODIPine 5 MG TAB PO SCH (12:16)
--- NOTE | 2020-08-02 13:04 | IPN ---
DATE: 08/01/2020 SUBJECTIVE: Mr. Parrish is seen this morning at his bedside. He is laying in the bed and feels tired today. He did a lot of Physical Therapy yesterday. The patient denies any fever, chills, nausea, vomiting, dyspnea or chest pain. PHYSICAL EXAMINATION: VITAL SIGNS: On physical exam temperature is 97.9 degrees Fahrenheit, heart rate is 90 per minute, and respiratory rate is 18 per minute. Blood pressure is 152/67 mmHg and oxygen saturation 97% on room air. HEENT: Head is atraumatic. NECK: Supple without JVD or thyroid enlargement. HEART: Heart sounds are regular. LUNGS: Clear to auscultation. ABDOMEN: Soft and nontender. Bowel sounds are normal. EXTREMITIES: Without any cyanosis or clubbing. Right arm AV fistula is patent. His left foot is wrapped in a dressing and the right leg is also wrapped in a dressing and BILLY bandage. LABORATORY DATA: Todays labs showed a WBC count of 7.4, hemoglobin 9.8 and hematocrit 32.3. Sodium 133, potassium 6.4, CO2 21, BUN 83 and creatinine 7.85. Glucose is 263 and calcium 8.8. PROBLEMS: 1. Endstage renal disease. Patient is due for dialysis today and he will be dialyzed this afternoon. We will try to remove about 3 liters of fluid. 2. Hyperkalemia related to endstage renal disease and possibly some absorption of blood from his wound in the left foot. He will be dialyzed with 1.0 mEq of potassium bath and we will recheck his chemistries tomorrow to ensure resolution of hyperkalemia. The patient should remain on low potassium diet. 3. Anemia, at present his anemia is stable and improving. He remains on Aranesp and iron during dialysis. 4. Hypertension, blood pressure is reasonably well-controlled on current medications. 5. Generalized weakness, deconditioning following amputation of two toes on his left foot. The patient continues with acute rehab. [facility]
[2020-08-02 14:00] VITALS: BP 166/68
[2020-08-02] MEDS ORDERED: BACLOFEN 5MG PER 1/2 TABLET PO ONE (15:00)
[2020-08-02 20:03] VITALS: BP 154/67
[2020-08-02] MEDS: SENNA 8.6 MG TAB (SENOKOT) PO SCH (21:00)
[2020-08-02] MEDS: ACETAMINOPHEN TAB 650MG DOSE (2X325MG) PO PRN (21:06)
[2020-08-03 06:01] VITALS: BP 162/82
[2020-08-03] MEDS: ADVAIR HFA 230/21MCG INHALER INH SCH ×2 (06:20→19:06)
[2020-08-03] MEDS: IPRATROPIUM 0.5MG/ALBUTEROL 2.5MG INH SOL UD 3ML (DUONEB) NEB SCH ×3 (06:21→19:06)
[2020-08-03 06:26] LABS: BASO % 0.6 % (0.0-1.0); EOS # 0.1 10^3/uL (0.0-0.5); EOS % 1.7 % (0.0-3.0); HEMATOCRIT 31.3 % (42.0-52.0); HEMOGLOBIN 9.5 g/dl (13.5-17.5); LYMPH # 1.5 10^3/uL (1.5-5.0); LYMPH % 20.8 % (24.0-44.0); MEAN CORPUSCULAR HEMOGLOBIN 29.5 pg (27.0-33.0); MEAN CORPUSCULAR HGB CONC 30.4 g/dl (32.0-36.5); MEAN CORPUSCULAR VOLUME 97.2 fl (80.0-96.0); MONO # 1.1 10^3/uL (0.0-0.8); MONO % 14.8 % (0.0-5.0); NEUTROPHILS # 4.3 10^3/uL (1.5-8.5); NEUTROPHILS % 60.7 % (36.0-66.0); PLATELET COUNT, AUTOMATED 238 10^3/uL (150-450); RED BLOOD COUNT 3.22 10^6/uL (4.30-6.10); WHITE BLOOD COUNT 7.1 10^3/uL (4.0-10.0)
[2020-08-03 07:25] LABS: CALCIUM LEVEL 8.4 MG/DL (8.5-10.1); CREATININE FOR GFR 4.91 MG/DL (0.70-1.30); GLOMERULAR FILTRATION RATE 13.3 (>56); POTASSIUM SERUM 5.2 MEQ/L (3.5-5.1)
[2020-08-03] MEDS: CALCIUM ACETATE 667MG GELCAP PO SCH ×3 (07:51→18:31)
[2020-08-03] MEDS: CLOPIDOGREL 75 MG TAB PO SCH (07:51)
[2020-08-03] MEDS: amLODIPine 5 MG TAB PO SCH (07:51)
[2020-08-03] MEDS: DICLOFENAC EPOLAMINE 1.3 % PATCH TOP SCH (07:51)
[2020-08-03] MEDS: APIXABAN 5 MG TAB (ELIQUIS) PO SCH ×2 (07:52→20:21)
[2020-08-03] MEDS: LEVEMIR (INSULIN DETEMIR) 1 UNITS/0.01ML SC SCH ×2 (07:52→20:22)
[2020-08-03] MEDS: SUCROFERRIC OXYHYDROXIDE 500MG CHEW TAB (VELPHORO) PO SCH ×3 (07:52→18:31)
[2020-08-03] MEDS: TORSEMIDE 20 MG TAB PO SCH (07:52)
[2020-08-03] MEDS: HumaLOG INSULIN (NovoLOG) PER UNIT SC SCH ×4 (07:53→20:23)
[2020-08-03] MEDS: PANTOPRAZOLE 40MG TAB (PROTONIX) PO SCH (07:53)
[2020-08-03] MEDS: CARVedilol 6.25 MG TAB PO SCH ×2 (07:53→20:22)
[2020-08-03] MEDS: DOCUSATE SODIUM 100 MG CAP PO SCH (07:54)
[2020-08-03] MEDS: allopurinoL 100 MG TAB PO SCH (07:54)
[2020-08-03] MEDS: REMEDY PHYTOPLEX Z-GUARD PASTE 113GM TUBE (FROM STOREROOM PRODUCT) TOP SCH ×3 (08:57→20:23)
[2020-08-03] MEDS: VANICREAM MOISTURIZING SKIN CREAM 113GM TUBE TOP SCH (10:33)
[2020-08-03] MEDS: LIDOCAINE 5% (LIDODERM) PATCH TD SCH (10:33)
[2020-08-03] MEDS: ACETAMINOPHEN 500 MG TAB PO SCH ×3 (10:33→20:21)
[2020-08-03] MEDS ORDERED: LIDOCAINE 1% SDV 5ML VIAL SQ ONE (10:45)
--- NOTE | 2020-08-03 11:12 | IPNPDOC ---
PM&R Progress Note DATE OF SERVICE: Aug 03, 2020 [employer] Progress Note Subjective: Patient reporting the baclofen last night did not help at all. He was educated on working on pendulum swings and wall climbs to treat his shoulder impingement and to not overuse use the shoulder for transfers. He is agreeable to trying a lidoderm patch instead of flector. REVIEW OF SYSTEMS: The following is a completed review of systems and has been reviewed. Review of systems otherwise unremarkable. PAIN: Patient self reports left shoulder pain EYES: No recent vision changes EARS, NOSE, & THROAT: No throat pain, or dysphagia, or rhinorrhea CARDIOVASCULAR: Denies chest pain or palpitations PULMONARY: Denies shortness of breath GASTROINTESTINAL: +loose stools GENITOURINARY: denies dysuria MUSCULOSKELETAL: +generalized weakness NEUROLOGICAL:+peripheral neuropathy HEMATOLOGICAL:+ anemia SKIN: left foot surgical incision and right calf blister PSYCHIATRIC: Unremarkable All other review of systems found to be negative. PHYSICAL EXAMINATION: VITAL SIGNS: Please see below. GENERAL: Pleasant and cooperative. No acute distress. HEENT: PERRL. Extraocular movements intact. Clear conjunctiva CARDIOVASCULAR: Regular rate and rhythm. No murmurs, rubs, or gallops LUNGS: Clear to auscultation bilaterally. No wheezes. No rhonchi. ABDOMEN: Soft, nontender, nondistended. Positive bowel sounds. Normal active bowel sounds NEUROLOGICAL: Alert and oriented times three. Cranial nerves II through XII grossly intact. Sensation grossly decreased to light touch in stocking patter EXTREMITIES: 5\5 strength bilateral upper extremities. 5\5 strength right lower extremity. 5/5 strength in left hip flexor and knee extensors (limited due to foot surgery) +TTP with multiple trigger points along left upper trapezius, +pain with left shoulder internal rotation SKIN: left foot wrapped (not examined), right anterior calf with edema and open blister (covered with optifoam) ASSESSMENT:55-year-old M with past medical history of ESRD who presents status post diabetic left foot wound s/p first metatarsal amputation PLAN: 1. REhab- PT/OT advance mobility and ADLs maintaining NWB to LLE 2. VAsc- s/p left first metatarsal amputation- dressing changes per orders, NWB- c/u Levaquin renally dosed 3 CArdiac- hx of chronic diastolic CHF c/u fluid restriction, fluid management per renal -Hx CAD with NSTEMI and AFib c/u Eliquis , medicine consulted to assist in overall management 4.Renal- ESRD on dialysis- renal consulted -c/u Succroferric 5. Endo- DM with peripheral polyneuropathy c/u ISS, patient with hyperglycemia, increase levemir to 36 units BID and adjust prn adjust as needed 6. DVT ppx- on eliquis 7. GI ppx- patient not taking stool softener/senna will stop protonix as can cause loose stools 8. Pain- Tylenol, flector patch to left shoulder for suspected subacromial impingement vs RTC not effective, will trial lidoderm patch instead, increase tylenol dosing to 1g TID, encourgae pendulum swing/wall climb exercises, and tramadol 25mg prn -baclofen was not effective 9. [id number] to home, progressing towards goals Allergies Coded Allergies: aspirin (Verified Allergy, Unknown, UNKNOWN REACTION A CHILD, 08/01/20) TAKES IBUPROFEN AT HOME garlic (Verified Adverse Reaction, Intermediate, syncope, 04/21/20) silver (Verified Adverse Reaction, Intermediate, angulo, 04/21/20) Vital Signs Vital Signs Date Time Temp Pulse Resp B/P (MAP) Pulse Ox O2 Delivery O2 Flow Rate FiO2 08/03/20 07:51 93 162/82 08/03/20 06:01 97.4 18 95 Room Air Laboratory Data CBC/BMP Laboratory Tests 08/03/20 06:15 Labs 24H Laboratory Tests 2 08/02/20 12:04: Bedside Glucose (Misc Panel) 163H 08/02/20 16:35: Bedside Glucose (Misc Panel) 195H 08/02/20 19:23: Bedside Glucose (Misc Panel) 224H 08/03/20 05:46: Bedside Glucose (Misc Panel) 192H 08/03/20 06:15: Immature Granulocyte % (Auto) 1.4, Neutrophils (%) (Auto) 60.7, Lymphocytes (%) (Auto) 20.8L, Monocytes (%) (Auto) 14.8H, Eosinophils (%) (Auto) 1.7, Basophils (%) (Auto) 0.6, Neutrophils # (Auto) 4.3, Lymphocytes # (Auto) 1.5, Monocytes # (Auto) 1.1H, Eosinophils # (Auto) 0.1, Basophils # (Auto) 0.0, Nucleated Red Blood Cells % (auto) 0.0, Anion Gap 6L, Glomerular Filtration Rate 13.3L, Calcium Level 8.4L Current Medications Current Medications Current Medications Medications (Trade) Dose Ordered Sig/Sadaf Route PRN Reason Start Time Stop Time Status Last Admin Dose Admin Acetaminophen (Tylenol Tab) 650 mg Q4HP PRN PO fever/MILD PAIN (PS 1-4) 07/28/20 15:45 08/03/20 10:21 DC 08/02/20 21:06 Acetaminophen (Tylenol Tab) 1,000 mg TID PO 08/03/20 09:00 08/03/20 10:33 Albuterol/ Ipratropium (Duoneb (Ipr 0.5mg/Alb 2.5mg)) 3 ml RTID NEB 07/28/20 20:00 08/02/20 13:51 Allopurinol (Zyloprim) 100 mg DAILY PO 07/29/20 09:00 08/03/20 07:54 Amlodipine Besylate (Norvasc) 5 mg DAILY PO 07/29/20 09:00 08/03/20 07:51 Apixaban (Eliquis) 5 mg BID PO 07/28/20 21:00 08/03/20 07:52 Calcium Acetate (Phoslo) 667 mg WM PO 07/29/20 08:00 08/03/20 07:51 Carvedilol (COReg) 6.25 mg BID PO 07/28/20 21:00 08/03/20 07:53 Clopidogrel Bisulfate (PLAVix) 75 mg DAILY PO 07/29/20 09:00 08/03/20 07:51 Darbepoetin Gagan (Aranesp (Dialysis Use)) 300 mcg HD IV 07/29/20 11:30 Dextrose (Dextrose 50%) 25 ml ASDIRECTED PRN IV SEE LABEL COMMENTS 07/28/20 15:45 Diclofenac Epolamine (Flector 1.3%) 1 patch Q12H TOP 08/02/20 09:00 08/03/20 10:21 DC 08/03/20 07:51 Docusate Sodium (Colace) 100 mg BID PO 07/28/20 21:00 08/03/20 11:00 DC 07/31/20 20:39 Emollient Cream (Vanicream) 1 dose Q48H TOP 07/30/20 09:00 08/03/20 10:33 Glucagon (Glucagon) 1 mg ASDIRECTED PRN SC SEE LABEL COMMENTS 07/28/20 15:45 Glucose (Glucose) 16 GM ASDIRECTED PRN PO SEE LABEL COMMENTS 07/28/20 15:45 Home Med (Med Rec Complete!) ASDIRECTED XX 07/28/20 19:15 07/28/20 19:03 DC Insulin Detemir (Levemir Insulin) 25 units BID SC 07/28/20 21:00 07/30/20 15:11 DC 07/30/20 08:44 Insulin Detemir (Levemir Insulin) 28 units BID SC 07/30/20 21:00 08/01/20 12:05 DC 08/01/20 08:25 Insulin Detemir (Levemir Insulin) 32 units BID SC 08/01/20 21:00 08/02/20 10:11 DC 08/02/20 07:45 Insulin Detemir (Levemir Insulin) 36 units BID SC 08/02/20 21:00 08/03/20 07:52 Insulin Human Lispro (HumaLOG INSULIN) SEE PROTOCOL TABLE AC SC 07/29/20 07:30 08/03/20 07:53 Insulin Human Lispro (HumaLOG INSULIN) SEE PROTOCOL TABLE QHS SC 07/28/20 21:00 08/01/20 21:27 Iron (Venofer) 100 mg HD IV 07/29/20 11:30 Levofloxacin (Levaquin) 750 mg Q48H PO 07/29/20 06:00 08/02/20 05:33 Lidocaine (Lidoderm Patch) 1 patch DAILY TD 08/03/20 09:00 08/03/20 10:33 Non-Formulary Medication ( See Comment Field Below ) REMOVE LIDODERM PATCH DAILY@21 XX 08/03/20 21:00 Pantoprazole Sodium (Protonix) 40 mg DAILY PO 07/29/20 09:00 08/03/20 11:00 DC 08/03/20 07:53 Ramelteon (Rozerem) 8 mg QHS PRN PO INSOMNIA 07/28/20 15:45 Salmeterol Xinafoate/ Fluticasone (Advair Hfa 230/ 21) 2 puff RBID INH 07/28/20 20:00 08/03/20 06:20 Senna (Senokot) 1 tab QHS PO 07/28/20 21:00 08/03/20 11:00 DC Sucroferric Oxyhydroxide (Velphoro) 500 mg WM PO 07/29/20 18:00 08/03/20 07:52 Sucroferric Oxyhydroxide (Velphoro) 1,000 mg WM PO 07/29/20 08:00 07/29/20 14:54 DC Torsemide (Demadex) 40 mg DAILY PO 07/29/20 09:00 08/03/20 07:52 Tramadol HCl (Ultram) 25 mg Q4HP PRN PO MODERATE PAIN (PS 5-7) 08/03/20 11:00 ARIANA MANN MD Aug 03, 2020 11:12
[2020-08-03] MEDS: traMADol 50 MG TAB PO PRN (11:55)
[2020-08-03 17:59] VITALS: BP 148/74
[2020-08-03 20:00] VITALS: BP 138/74
[2020-08-03] MEDS: **NOTE PATIENT COMMENT** MISC XX SCH (20:22)
[2020-08-04 04:15] VITALS: BP 158/86
[2020-08-04] MEDS: LevoFLOXacin 750 MG TABLET PO SCH (05:06)
[2020-08-04 06:02] VITALS: BP 127/64
[2020-08-04 06:42] LABS: HEMATOCRIT 27.8 % (42.0-52.0); HEMOGLOBIN 8.5 g/dl (13.5-17.5); MEAN CORPUSCULAR HEMOGLOBIN 29.5 pg (27.0-33.0); MEAN CORPUSCULAR HGB CONC 30.6 g/dl (32.0-36.5); MEAN CORPUSCULAR VOLUME 96.5 fl (80.0-96.0); PLATELET COUNT, AUTOMATED 225 10^3/uL (150-450); RED BLOOD COUNT 2.88 10^6/uL (4.30-6.10); WHITE BLOOD COUNT 5.7 10^3/uL (4.0-10.0)
[2020-08-04] MEDS: IPRATROPIUM 0.5MG/ALBUTEROL 2.5MG INH SOL UD 3ML (DUONEB) NEB SCH ×3 (07:18→19:28)
[2020-08-04] MEDS: ADVAIR HFA 230/21MCG INHALER INH SCH ×2 (07:18→19:28)
--- NOTE | 2020-08-04 07:55 | IPN ---
DATE: 08/02/2020 Mr. Parrish is seen this morning during hemodialysis. He was dialyzed yesterday, and we did use 1.0 mEq potassium bath during later part of dialysis due to hyperkalemia. This morning, his potassium level was found to be 5.6, and we decided to dialyze him again. Patient denies any high-potassium food intake. He denies any nausea, vomiting, dyspnea, or chest pain. PHYSICAL EXAMINATION: Temperature 97.5 degrees Fahrenheit, heart rate 76 per minute, and respiratory rate 18 per minute, blood pressure 126/62 mm of mercury., and oxygen saturation 98% on room air. Head is atraumatic. Neck supple and without jugular venous distention (JVD) or thyroid enlargement. Heart sounds are regular, and lungs clear to auscultation. Abdomen obese, soft, and nontender, and bowel sounds are normal. Extremities without any cyanosis or clubbing. Left foot is wrapped in dressing. Right leg wound is also covered with dressing. Neurologically, he is awake, alert, and oriented times three. Today's chemistries showed sodium 135, potassium 5.6, CO2 of 26, BUN 51, and creatinine 5.24. Glucose 221 and calcium 8.2. PROBLEMS: 1. Hyperkalemia related to end stage renal disease and possibly some necrotic tissue or hematoma in his left foot where he has amputation of two toes. At present, he is being dialyzed again today due to persistent hyperkalemia. We are using 2.0 mEq potassium bath today. His regular dialysis treatment will be again tomorrow. 2. End stage renal disease. Patient is regularly dialyzed on Saturday, Saturday, Saturday schedule. He did have his regular dialysis yesterday. Today we are performing an extra 3-hour dialysis due to hyperkalemia. He will be scheduled for next dialysis again tomorrow. 3. Anemia. His anemia has been stable and does not need any urgent intervention. 4. Diabetic foot ulcer, status post amputation of 1st and 2nd toes on left foot. Patient is afebrile and continues with dressing changes and rehabilitation. He still has some bleeding from the wound. It remains to be seen how he heals. [facility]
[2020-08-04] MEDS: CALCIUM ACETATE 667MG GELCAP PO SCH ×3 (07:59→18:01)
[2020-08-04] MEDS: SUCROFERRIC OXYHYDROXIDE 500MG CHEW TAB (VELPHORO) PO SCH ×3 (07:59→18:01)
[2020-08-04] MEDS: TORSEMIDE 20 MG TAB PO SCH (07:59)
[2020-08-04 08:00] VITALS: BP 176/72
[2020-08-04] MEDS: CLOPIDOGREL 75 MG TAB PO SCH (08:00)
[2020-08-04] MEDS: amLODIPine 5 MG TAB PO SCH (08:00)
[2020-08-04] MEDS: CARVedilol 6.25 MG TAB PO SCH ×2 (08:00→20:16)
[2020-08-04] MEDS: HumaLOG INSULIN (NovoLOG) PER UNIT SC SCH ×4 (08:02→20:18)
[2020-08-04] MEDS: allopurinoL 100 MG TAB PO SCH (08:02)
[2020-08-04] MEDS: ACETAMINOPHEN 500 MG TAB PO SCH ×3 (08:02→20:17)
[2020-08-04] MEDS: REMEDY PHYTOPLEX Z-GUARD PASTE 113GM TUBE (FROM STOREROOM PRODUCT) TOP SCH ×3 (08:03→20:18)
[2020-08-04] MEDS: LIDOCAINE 5% (LIDODERM) PATCH TD SCH (08:03)
[2020-08-04] MEDS: LEVEMIR (INSULIN DETEMIR) 1 UNITS/0.01ML SC SCH ×2 (08:03→20:18)
[2020-08-04] MEDS: APIXABAN 5 MG TAB (ELIQUIS) PO SCH ×2 (09:00→20:17)
--- NOTE | 2020-08-04 12:07 | IPNPDOC ---
PM&R Progress Note DATE OF SERVICE: Aug 04, 2020 [employer] Progress Note Subjective: Patient reporting he is no logner bleeding from his old permacath site and that he feels tired from therapy, but that his shoulder is a little better today. REVIEW OF SYSTEMS: The following is a completed review of systems and has been reviewed. Review of systems otherwise unremarkable. PAIN: Patient self reports left shoulder pain EYES: No recent vision changes EARS, NOSE, & THROAT: No throat pain, or dysphagia, or rhinorrhea CARDIOVASCULAR: Denies chest pain or palpitations PULMONARY: Denies shortness of breath GASTROINTESTINAL: +loose stools (improving) GENITOURINARY: denies dysuria MUSCULOSKELETAL: +generalized weakness NEUROLOGICAL:+peripheral neuropathy HEMATOLOGICAL:+ anemia SKIN: left foot surgical incision and right calf blister PSYCHIATRIC: Unremarkable All other review of systems found to be negative. PHYSICAL EXAMINATION: VITAL SIGNS: Please see below. GENERAL: Pleasant and cooperative. No acute distress. HEENT: PERRL. Extraocular movements intact. Clear conjunctiva CARDIOVASCULAR: Regular rate and rhythm. No murmurs, rubs, or gallops LUNGS: Clear to auscultation bilaterally. No wheezes. No rhonchi. ABDOMEN: Soft, nontender, nondistended. Positive bowel sounds. Normal active bowel sounds NEUROLOGICAL: Alert and oriented times three. Cranial nerves II through XII grossly intact. Sensation grossly decreased to light touch in stocking patter EXTREMITIES: 5\5 strength bilateral upper extremities. 5\5 strength right lower extremity. 5/5 strength in left hip flexor and knee extensors (limited due to foot surgery) +TTP with multiple trigger points along left upper trapezius, +pain with left shoulder internal rotation SKIN: left foot wrapped (not examined today ), bilat calf edema ASSESSMENT:55-year-old M with past medical history of ESRD who presents status post diabetic left foot wound s/p first metatarsal amputation PLAN: 1. REhab- PT/OT advance mobility and ADLs maintaining NWB to LLE 2. VAsc- s/p left first metatarsal amputation- dressing changes per orders, NWB- c/u Levaquin renally dosed 3 CArdiac- hx of chronic diastolic CHF c/u fluid restriction, fluid management per renal -Hx CAD with NSTEMI and AFib c/u Emily , medicine consulted to assist in overall management 4.Renal- ESRD on dialysis- renal consulted -c/u Succroferric 5. Endo- DM with peripheral polyneuropathy c/u ISS, patient with hyperglycemia, increased levemir to 36 units BID and adjust prn adjust as needed 6. DVT ppx- on eliquis 7. GI ppx- patient not taking stool softener/senna stopped protonix as can cause loose stools 8. Pain- Tylenol, flector patch to left shoulder for suspected subacromial impingement vs RTC not effective, c/u lidoderm patch, tylenol dosing to 1g TID, encourgae pendulum swing/wall climb exercises, and tramadol 25 mg prn -baclofen was not effective 9. Heme- patient with permacath site bleeding overnight s/p it's removal with drop in Hgb to 8.5, he denies feeling dizzy or light headed, vital stable, will repeat H/H this afternoon and hold Eliquis until then- site not currently bleeding 9. [id number] to home, progressing towards goals Allergies Coded Allergies: aspirin (Verified Allergy, Unknown, UNKNOWN REACTION A CHILD, 08/01/20) TAKES IBUPROFEN AT HOME garlic (Verified Adverse Reaction, Intermediate, syncope, 04/21/20) silver (Verified Adverse Reaction, Intermediate, angulo, 04/21/20) Vital Signs Vital Signs Date Time Temp Pulse Resp B/P (MAP) Pulse Ox O2 Delivery O2 Flow Rate FiO2 08/04/20 08:00 69 127/64 08/04/20 06:02 97.7 18 98 Room Air Laboratory Data CBC/BMP Laboratory Tests 08/04/20 06:30 Labs 24H Laboratory Tests 2 08/03/20 17:53: Bedside Glucose (Misc Panel) 105 08/03/20 19:43: Bedside Glucose (Misc Panel) 178H 08/04/20 05:22: Bedside Glucose (Misc Panel) 175H 08/04/20 06:30: Nucleated Red Blood Cells % (auto) 0.0 08/04/20 11:25: Bedside Glucose (Misc Panel) 255H Current Medications Current Medications Current Medications Medications (Trade) Dose Ordered Sig/Sadaf Route PRN Reason Start Time Stop Time Status Last Admin Dose Admin Acetaminophen (Tylenol Tab) 650 mg Q4HP PRN PO fever/MILD PAIN (PS 1-4) 07/28/20 15:45 08/03/20 10:21 DC 08/02/20 21:06 Acetaminophen (Tylenol Tab) 1,000 mg TID PO 08/03/20 09:00 08/04/20 08:02 Albuterol/ Ipratropium (Duoneb (Ipr 0.5mg/Alb 2.5mg)) 3 ml RTID NEB 07/28/20 20:00 08/03/20 19:06 Allopurinol (Zyloprim) 100 mg DAILY PO 07/29/20 09:00 08/04/20 08:02 Amlodipine Besylate (Norvasc) 5 mg DAILY PO 07/29/20 09:00 08/04/20 08:00 Apixaban (Eliquis) 5 mg BID PO 07/28/20 21:00 08/03/20 20:21 Calcium Acetate (Phoslo) 667 mg WM PO 07/29/20 08:00 08/04/20 07:59 Carvedilol (COReg) 6.25 mg BID PO 07/28/20 21:00 08/04/20 08:00 Clopidogrel Bisulfate (PLAVix) 75 mg DAILY PO 07/29/20 09:00 08/04/20 08:00 Darbepoetin Gagan (Aranesp (Dialysis Use)) 300 mcg HD IV 07/29/20 11:30 Dextrose (Dextrose 50%) 25 ml ASDIRECTED PRN IV SEE LABEL COMMENTS 07/28/20 15:45 Diclofenac Epolamine (Flector 1.3%) 1 patch Q12H TOP 08/02/20 09:00 08/03/20 10:21 DC 08/03/20 07:51 Docusate Sodium (Colace) 100 mg BID PO 07/28/20 21:00 08/03/20 11:00 DC 07/31/20 20:39 Emollient Cream (Vanicream) 1 dose Q48H TOP 07/30/20 09:00 08/03/20 10:33 Glucagon (Glucagon) 1 mg ASDIRECTED PRN SC SEE LABEL COMMENTS 07/28/20 15:45 Glucose (Glucose) 16 GM ASDIRECTED PRN PO SEE LABEL COMMENTS 07/28/20 15:45 Home Med (Med Rec Complete!) ASDIRECTED XX 07/28/20 19:15 07/28/20 19:03 DC Insulin Detemir (Levemir Insulin) 25 units BID SC 07/28/20 21:00 07/30/20 15:11 DC 07/30/20 08:44 Insulin Detemir (Levemir Insulin) 28 units BID SC 07/30/20 21:00 08/01/20 12:05 DC 08/01/20 08:25 Insulin Detemir (Levemir Insulin) 32 units BID SC 08/01/20 21:00 08/02/20 10:11 DC 08/02/20 07:45 Insulin Detemir (Levemir Insulin) 36 units BID SC 08/02/20 21:00 08/04/20 08:03 Insulin Human Lispro (HumaLOG INSULIN) SEE PROTOCOL TABLE AC SC 07/29/20 07:30 08/04/20 08:02 Insulin Human Lispro (HumaLOG INSULIN) SEE PROTOCOL TABLE QHS SC 07/28/20 21:00 08/01/20 21:27 Iron (Venofer) 100 mg HD IV 07/29/20 11:30 Levofloxacin (Levaquin) 750 mg Q48H PO 07/29/20 06:00 08/04/20 05:06 Lidocaine (Lidoderm Patch) 1 patch DAILY TD 08/03/20 09:00 08/04/20 08:03 Non-Formulary Medication ( See Comment Field Below ) REMOVE LIDODERM PATCH DAILY@21 XX 08/03/20 21:00 08/03/20 20:22 Pantoprazole Sodium (Protonix) 40 mg DAILY PO 07/29/20 09:00 08/03/20 11:00 DC 08/03/20 07:53 Ramelteon (Rozerem) 8 mg QHS PRN PO INSOMNIA 07/28/20 15:45 Salmeterol Xinafoate/ Fluticasone (Advair Hfa 230/ 21) 2 puff RBID INH 07/28/20 20:00 08/04/20 07:18 Senna (Senokot) 1 tab QHS PO 07/28/20 21:00 08/03/20 11:00 DC Sucroferric Oxyhydroxide (Velphoro) 500 mg WM PO 07/29/20 18:00 08/04/20 07:59 Sucroferric Oxyhydroxide (Velphoro) 1,000 mg WM PO 07/29/20 08:00 07/29/20 14:54 DC Torsemide (Demadex) 40 mg DAILY PO 07/29/20 09:00 08/04/20 07:59 Tramadol HCl (Ultram) 25 mg Q4HP PRN PO MODERATE PAIN (PS 5-7) 08/03/20 11:00 08/03/20 11:55 ARIANA MANN MD Aug 04, 2020 12:07
[2020-08-04 14:00] VITALS: BP 140/79
[2020-08-04 16:18] LABS: HEMATOCRIT 31.5 % (42.0-52.0); HEMOGLOBIN 9.6 g/dl (13.5-17.5)
--- NOTE | 2020-08-04 18:01 | REPVR ---
PROCEDURE INFORMATION: Exam: US Duplex Lower Extremity Veins, Bilateral Exam date and time: 08/04/2020 5:25 PM Age: 55 years old Clinical indication: Pain; Leg, lower; Bilateral; Additional info: Immobility and pain TECHNIQUE: Imaging protocol: Real-time duplex ultrasound of the extremities with 2-D charles scale, color Doppler flow and spectral waveform analysis with image documentation. Complete exam focused on the bilateral lower extremity veins. COMPARISON: [facility] 07/18/2020 9:35 PM FINDINGS: Right deep veins: Unremarkable. The common femoral, femoral, proximal profunda femoral and popliteal veins are patent without thrombus. Normal Doppler waveforms. Normal compressibility and/or augmentation response. Right superficial veins: Saphenofemoral junction is patent without thrombus. Left deep veins: Unremarkable. The common femoral, femoral, proximal profunda femoral and popliteal veins are patent without thrombus. Normal Doppler waveforms. Normal compressibility and/or augmentation response. Left superficial veins: Saphenofemoral junction is patent without thrombus. Soft tissues: There appears to be marked soft tissue edema in the right calf. IMPRESSION: 1. No deep venous thrombus demonstrated in either lower extremity. 2. Apparent marked soft tissue edema in the right calf. Electronically signed by: Jayson Farias On 08/04/2020 18:01:06 PM
[2020-08-04 20:00] VITALS: BP 127/62
[2020-08-04] MEDS: **NOTE PATIENT COMMENT** MISC XX SCH (20:19)
[2020-08-05] MEDS: traMADol 50 MG TAB PO PRN (03:14)
[2020-08-05 06:00] VITALS: BP 145/72
[2020-08-05 07:25] LABS: BASO % 0.5 % (0.0-1.0); EOS # 0.1 10^3/uL (0.0-0.5); EOS % 1.9 % (0.0-3.0); HEMOGLOBIN 8.5 g/dl (13.5-17.5); LYMPH # 1.5 10^3/uL (1.5-5.0); LYMPH % 25.2 % (24.0-44.0); MEAN CORPUSCULAR HEMOGLOBIN 29.4 pg (27.0-33.0); MEAN CORPUSCULAR HGB CONC 30.4 g/dl (32.0-36.5); MEAN CORPUSCULAR VOLUME 96.9 fl (80.0-96.0); MONO # 0.7 10^3/uL (0.0-0.8); MONO % 12.8 % (0.0-5.0); NEUTROPHILS # 3.4 10^3/uL (1.5-8.5); NEUTROPHILS % 58.7 % (36.0-66.0); PLATELET COUNT, AUTOMATED 215 10^3/uL (150-450); RED BLOOD COUNT 2.89 10^6/uL (4.30-6.10); WHITE BLOOD COUNT 5.8 10^3/uL (4.0-10.0)
[2020-08-05] MEDS: IPRATROPIUM 0.5MG/ALBUTEROL 2.5MG INH SOL UD 3ML (DUONEB) NEB SCH ×3 (07:38→19:34)
[2020-08-05] MEDS: ADVAIR HFA 230/21MCG INHALER INH SCH ×2 (07:38→19:34)
[2020-08-05] MEDS: ACETAMINOPHEN 500 MG TAB PO SCH ×3 (07:48→20:29)
[2020-08-05] MEDS: TORSEMIDE 20 MG TAB PO SCH (07:48)
[2020-08-05] MEDS: SUCROFERRIC OXYHYDROXIDE 500MG CHEW TAB (VELPHORO) PO SCH ×3 (07:48→18:52)
[2020-08-05] MEDS: allopurinoL 100 MG TAB PO SCH (07:48)
[2020-08-05 07:49] LABS: CALCIUM LEVEL 8.2 MG/DL (8.5-10.1); CREATININE FOR GFR 5.73 MG/DL (0.70-1.30); GLOMERULAR FILTRATION RATE 11.1 (>56); POTASSIUM SERUM 5.1 MEQ/L (3.5-5.1)
[2020-08-05] MEDS: CARVedilol 6.25 MG TAB PO SCH ×2 (07:49→20:30)
[2020-08-05] MEDS: APIXABAN 5 MG TAB (ELIQUIS) PO SCH ×2 (07:49→20:29)
[2020-08-05] MEDS: CALCIUM ACETATE 667MG GELCAP PO SCH ×3 (07:49→18:52)
[2020-08-05] MEDS: CLOPIDOGREL 75 MG TAB PO SCH (07:49)
[2020-08-05] MEDS: amLODIPine 5 MG TAB PO SCH (07:49)
[2020-08-05] MEDS: HumaLOG INSULIN (NovoLOG) PER UNIT SC SCH ×4 (07:50→20:31)
[2020-08-05] MEDS: LIDOCAINE 5% (LIDODERM) PATCH TD SCH (07:50)
[2020-08-05] MEDS: LEVEMIR (INSULIN DETEMIR) 1 UNITS/0.01ML SC SCH ×2 (07:50→20:31)
[2020-08-05] MEDS: REMEDY PHYTOPLEX Z-GUARD PASTE 113GM TUBE (FROM STOREROOM PRODUCT) TOP SCH ×3 (07:51→20:31)
[2020-08-05] MEDS ORDERED: LIDOCAINE 1% SDV 5ML VIAL SQ ONE (10:30)
[2020-08-05] MEDS: VANICREAM MOISTURIZING SKIN CREAM 113GM TUBE TOP SCH (12:14)
[2020-08-05] MEDS ORDERED: traMADol 50 MG TAB PO PRN (13:30)
--- NOTE | 2020-08-05 13:32 | IPNPDOC ---
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 REVIEW OF SYSTEMS: The following is a completed review of systems and has been reviewed. Review of systems otherwise unremarkable. PAIN: Patient self reports left shoulder pain EYES: No recent vision changes EARS, NOSE, & THROAT: No throat pain, or dysphagia, or rhinorrhea CARDIOVASCULAR: Denies chest pain or palpitations PULMONARY: Denies shortness of breath GASTROINTESTINAL: +loose stools (improving) GENITOURINARY: denies dysuria MUSCULOSKELETAL: +generalized weakness NEUROLOGICAL:+peripheral neuropathy HEMATOLOGICAL:+ anemia SKIN: left foot surgical incision and right calf blister PSYCHIATRIC: Unremarkable All other review of systems found to be negative. PHYSICAL EXAMINATION: VITAL SIGNS: Please see below. GENERAL: Pleasant and cooperative. No acute distress. HEENT: PERRL. Extraocular movements intact. Clear conjunctiva CARDIOVASCULAR: Regular rate and rhythm. No murmurs, rubs, or gallops LUNGS: Clear to auscultation bilaterally. No wheezes. No rhonchi. ABDOMEN: Soft, nontender, nondistended. Positive bowel sounds. Normal active bowel sounds NEUROLOGICAL: Alert and oriented times three. Cranial nerves II through XII grossly intact. Sensation grossly decreased to light touch in stocking patter EXTREMITIES: 5\5 strength bilateral upper extremities. 5\5 strength right lower extremity. 5/5 strength in left hip flexor and knee extensors (limited due to foot surgery) +TTP with multiple trigger points along left upper trapezius, +pain with left shoulder internal rotation (improving) SKIN: left foot wrapped (not examined today ), bilat calf edema -permacath site with out induration mild erythema, no exudate ASSESSMENT:55-year-old M with past medical history of ESRD who presents status post diabetic left foot wound s/p first metatarsal amputation PLAN: 1. REhab- PT/OT advance mobility and ADLs maintaining NWB to LLE 2. VAsc- s/p left first metatarsal amputation- dressing changes per orders, NWB- c/u Levaquin renally dosed 3 CArdiac- hx of chronic diastolic CHF c/u fluid restriction, fluid management per renal -Hx CAD with NSTEMI and AFib c/u Eliquis , medicine consulted to assist in overall management 4.Renal- ESRD on dialysis- renal consulted -c/u Succroferric 5. Endo- DM with peripheral polyneuropathy c/u ISS, patient with hyperglycemia, increased levemir to 36 units BID and adjust prn adjust as needed 6. DVT ppx- on eliquis -Dopplers negative for DVT 7. GI ppx- patient not taking stool softener/senna stopped protonix as can cause loose stools 8. Pain- Tylenol, flector patch to left shoulder for suspected subacromial impingement vs RTC not effective, c/u lidoderm patch, tylenol dosing to 1g TID, encourgae pendulum swing/wall climb exercises, and will increase tramadol to 50 mg prn - permacath site does not appear infected, however patient reporting burning pain at night near that site likely due to focal nerve irritation, will start Elavil 25mg qHS and monitor -baclofen was not effective 9. Heme- patient with permacath bleeding 08-04-20 since has resolved, H/H relati vely stable 9. Dagtu-8-15-20 to home, progressing towards goals Allergies Coded Allergies: aspirin (Verified Allergy, Unknown, UNKNOWN REACTION A CHILD, 08/01/20) TAKES IBUPROFEN AT HOME garlic (Verified Adverse Reaction, Intermediate, syncope, 04/21/20) silver (Verified Adverse Reaction, Intermediate, angulo, 04/21/20) Vital Signs Vital Signs Date Time Temp Pulse Resp B/P (MAP) Pulse Ox O2 Delivery O2 Flow Rate FiO2 08/05/20 07:49 78 145/72 08/05/20 06:00 97.2 18 94 Room Air Laboratory Data CBC/BMP Laboratory Tests 08/04/20 15:42 08/05/20 07:06 Labs 24H Laboratory Tests 2 08/04/20 16:28: Bedside Glucose (Misc Panel) 179H 08/05/20 06:06: Bedside Glucose (Misc Panel) 145H 08/05/20 07:06: Immature Granulocyte % (Auto) 0.9, Neutrophils (%) (Auto) 58.7, Lymphocytes (%) (Auto) 25.2, Monocytes (%) (Auto) 12.8H, Eosinophils (%) (Auto) 1.9, Basophils (%) (Auto) 0.5, Neutrophils # (Auto) 3.4, Lymphocytes # (Auto) 1.5, Monocytes # (Auto) 0.7, Eosinophils # (Auto) 0.1, Basophils # (Auto) 0.0, Nucleated Red Blood Cells % (auto) 0.0, Anion Gap 6L, Glomerular Filtration Rate 11.1L, Jluis cium Level 8.2L 08/05/20 11:22: Bedside Glucose (Misc Panel) 206H Current Medications Current Medications Current Medications Medications (Trade) Dose Ordered Sig/Sadaf Route PRN Reason Start Time Stop Time Status Last Admin Dose Admin Acetaminophen (Tylenol Tab) 650 mg Q4HP PRN PO fever/MILD PAIN (PS 1-4) 07/28/20 15:45 08/03/20 10:21 DC 08/02/20 21:06 Acetaminophen (Tylenol Tab) 1,000 mg TID PO 08/03/20 09:00 08/05/20 07:48 Albuterol/ Ipratropium (Duoneb (Ipr 0.5mg/Alb 2.5mg)) 3 ml RTID NEB 07/28/20 20:00 08/05/20 13:28 Allopurinol (Zyloprim) 100 mg DAILY PO 07/29/20 09:00 08/05/20 07:48 Amitriptyline HCl (Elavil) 25 mg QHS PO 08/05/20 21:00 Amlodipine Besylate (Norvasc) 5 mg DAILY PO 07/29/20 09:00 08/05/20 07:49 Apixaban (Eliquis) 5 mg BID PO 07/28/20 21:00 08/05/20 07:49 Calcium Acetate (Phoslo) 667 mg WM PO 07/29/20 08:00 08/05/20 12:12 Carvedilol (COReg) 6.25 mg BID PO 07/28/20 21:00 08/05/20 07:49 Clopidogrel Bisulfate (PLAVix) 75 mg DAILY PO 07/29/20 09:00 08/05/20 07:49 Darbepoetin Gagan (Aranesp (Dialysis Use)) 300 mcg HD IV 07/29/20 11:30 Dextrose (Dextrose 50%) 25 ml ASDIRECTED PRN IV SEE LABEL COMMENTS 07/28/20 15:45 Diclofenac Epolamine (Flector 1.3%) 1 patch Q12H TOP 08/02/20 09:00 08/03/20 10:21 DC 08/03/20 07:51 Docusate Sodium (Colace) 100 mg BID PO 07/28/20 21:00 08/03/20 11:00 DC 07/31/20 20:39 Emollient Cream (Vanicream) 1 dose Q48H TOP 07/30/20 09:00 08/05/20 12:14 Glucagon (Glucagon) 1 mg ASDIRECTED PRN SC SEE LABEL COMMENTS 07/28/20 15:45 Glucose (Glucose) 16 GM ASDIRECTED PRN PO SEE LABEL COMMENTS 07/28/20 15:45 Home Med (Med Rec Complete!) ASDIRECTED XX 07/28/20 19:15 07/28/20 19:03 DC Insulin Detemir (Levemir Insulin) 25 units BID SC 07/28/20 21:00 07/30/20 15:11 DC 07/30/20 08:44 Insulin Detemir (Levemir Insulin) 28 units BID SC 07/30/20 21:00 08/01/20 12:05 DC 08/01/20 08:25 Insulin Detemir (Levemir Insulin) 32 units BID SC 08/01/20 21:00 08/02/20 10:11 DC 08/02/20 07:45 Insulin Detemir (Levemir Insulin) 36 units BID SC 08/02/20 21:00 08/05/20 07:50 Insulin Human Lispro (HumaLOG INSULIN) SEE PROTOCOL TABLE AC SC 07/29/20 07:30 08/05/20 12:13 Insulin Human Lispro (HumaLOG INSULIN) SEE PROTOCOL TABLE QHS DC 07/28/20 21:00 08/01/20 21:27 Iron (Venofer) 100 mg HD IV 07/29/20 11:30 Levofloxacin (Levaquin) 750 mg Q48H PO 07/29/20 06:00 08/04/20 05:06 Lidocaine (Lidoderm Patch) 1 patch DAILY TD 08/03/20 09:00 08/05/20 07:50 Non-Formulary Medication ( See Comment Field Below ) REMOVE LIDODERM PATCH DAILY@21 XX 08/03/20 21:00 08/04/20 20:19 Pantoprazole Sodium (Protonix) 40 mg DAILY PO 07/29/20 09:00 08/03/20 11:00 DC 08/03/20 07:53 Ramelteon (Rozerem) 8 mg QHS PO 08/05/20 21:00 Ramelteon (Rozerem) 8 mg QHS PRN PO INSOMNIA 07/28/20 15:45 08/05/20 13:21 DC Salmeterol Xinafoate/ Fluticasone (Advair Hfa 230/ 21) 2 puff RBID INH 07/28/20 20:00 08/05/20 07:38 Senna (Senokot) 1 tab QHS PO 07/28/20 21:00 08/03/20 11:00 DC Sucroferric Oxyhydroxide (Velphoro) 500 mg WM PO 07/29/20 18:00 08/05/20 12:12 Sucroferric Oxyhydroxide (Velphoro) 1,000 mg WM PO 07/29/20 08:00 07/29/20 14:54 DC Torsemide (Demadex) 40 mg DAILY PO 07/29/20 09:00 08/05/20 07:48 Tramadol HCl (Ultram) 25 mg Q4HP PRN PO MODERATE PAIN (PS 5-7) 08/03/20 11:00 08/05/20 13:22 DC 08/05/20 03:14 Tramadol HCl (Ultram) 50 mg Q4HP PRN PO MODERATE PAIN (PS 5-7) 08/05/20 13:30 ARIANA MANN MD Aug 05, 2020 13:32
[2020-08-05 14:00] VITALS: BP 135/81
[2020-08-05 20:20] VITALS: BP 156/67
[2020-08-05] MEDS: AMITRIPTYLINE 25 MG TAB PO SCH (20:30)
[2020-08-05] MEDS: RAMELTEON 8 MG TAB (ROZEREM) PO SCH (20:30)
[2020-08-05] MEDS: **NOTE PATIENT COMMENT** MISC XX SCH (20:34)
[2020-08-06] MEDS: LevoFLOXacin 750 MG TABLET PO SCH (05:54)
[2020-08-06 06:05] VITALS: BP 150/90
[2020-08-06] MEDS: ADVAIR HFA 230/21MCG INHALER INH SCH ×2 (07:36→20:00)
[2020-08-06] MEDS: IPRATROPIUM 0.5MG/ALBUTEROL 2.5MG INH SOL UD 3ML (DUONEB) NEB SCH ×3 (07:36→20:00)
[2020-08-06] MEDS: TORSEMIDE 20 MG TAB PO SCH (08:45)
[2020-08-06] MEDS: SUCROFERRIC OXYHYDROXIDE 500MG CHEW TAB (VELPHORO) PO SCH ×3 (08:45→17:18)
[2020-08-06] MEDS: allopurinoL 100 MG TAB PO SCH (08:45)
[2020-08-06] MEDS: CALCIUM ACETATE 667MG GELCAP PO SCH ×3 (08:45→17:18)
[2020-08-06] MEDS: CARVedilol 6.25 MG TAB PO SCH ×2 (08:46→21:04)
[2020-08-06] MEDS: amLODIPine 5 MG TAB PO SCH (08:46)
[2020-08-06] MEDS: CLOPIDOGREL 75 MG TAB PO SCH (08:46)
[2020-08-06] MEDS: ACETAMINOPHEN 500 MG TAB PO SCH ×3 (08:46→21:04)
[2020-08-06] MEDS: LEVEMIR (INSULIN DETEMIR) 1 UNITS/0.01ML SC SCH ×2 (08:47→21:03)
[2020-08-06] MEDS: LIDOCAINE 5% (LIDODERM) PATCH TD SCH (08:48)
[2020-08-06] MEDS: REMEDY PHYTOPLEX Z-GUARD PASTE 113GM TUBE (FROM STOREROOM PRODUCT) TOP SCH ×3 (08:48→21:00)
[2020-08-06] MEDS: APIXABAN 5 MG TAB (ELIQUIS) PO SCH ×2 (08:48→21:04)
[2020-08-06] MEDS: HumaLOG INSULIN (NovoLOG) PER UNIT SC SCH ×4 (08:48→21:00)
--- NOTE | 2020-08-06 10:57 | IPNPDOC ---
Text Note Date of Service The patient was seen on 08/06/20. NOTE SUBJECTIVE: Patient was seen and examined today at bedside. He states he has been having some intermittent nausea. Continues to work with PT/OT. OBJECTIVE: PHYSICAL EXAMINATION: VITAL SIGNS: Please see below. GENERAL: Alert, laying comfortably in bed, in no acute distress HEENT: NC, AT, moist mucous membranes, no JVD noted. CARDIOVASCULAR: RRR, normal S1 and S2 RESPIRATORY: CTAB, no wheezing, rhonchi, or rales ABDOMINAL: Soft, nontender, nondistended. EXTREMITIES: Trace bilateral lower extremity edema. Clean dressing over the left foot. ASSESSMENT/PLAN: 55 year old male with history of ESRD on HD admitted to acute rehab after amp utation for diabetic foot infection. 1. ESRD on hemodialysis. Cr and electrolytes stable. Volume status acceptable. He will continue on MWF dialysis schedule while at rehab. 2. Hyperkalemia. Improved with HD, continue to monitor. 3. Anemia in ESRD. Continue on Aranesp and Venofer with dialysis. Hemoglobin level has been stable. 4. Diabetic foot ulcer, status post amputation of 1st and 2nd toes on left foot. Patient is afebrile and continues with dressing changes and rehabilitation. He continues on Levaquin 750mg q48h for antibiotic coverage. 5. Hypertension. Well controlled. Continue current dose of Amlodipine 5 mg, torsemide 40mg, carvedilol 6.25mg BID. 6. Chronic kidney disease/mineral bone disease. Continue current dose of Velphoro and Phoslo. Phosphorus levels have been stable. Thank you for the consultation on this patient, we will continue to follow along. VS,Fishbone, I+O VS, Fishbone, I+O Vital Signs Date Time Temp Pulse Resp B/P (MAP) Pulse Ox O2 Delivery O2 Flow Rate FiO2 08/06/20 08:46 72 150/90 08/06/20 06:05 96.8 18 96 Room Air I&O- Last 24 Hours up to 6 AM 08/06/20 06:00 Intake Total 720 ml Output Total 4350 ml Balance -3630 ml GME ATTESTATION GME ATTESTATION My faculty preceptor for this patient encounter was physically present during the encounter and was fully available. All aspects of the patient interview, examination, medical decision making process, and medical care plan development were reviewed and approved by the faculty preceptor. The faculty preceptor is aware and concurs with the plan as stated in the body of this note and will attest to such by his/her cosignature. ATTENDING NOTE ESRD Anemia in ESRd HTN LE edema Diabetic foot infection DM type 2 CKD MBD HD done yesterday. 3.5Kg removed. Next HD on Saturday. Cont Abx. fluid restriction advised. MARILY MANRIQUEZ D.O. Aug 06, 2020 10:57 ANA PALACIOS MD Aug 06, 2020 11:16
[2020-08-06 14:00] VITALS: BP 142/69
[2020-08-06 14:10] LABS: HEMATOCRIT 30.9 % (42.0-52.0); HEMOGLOBIN 9.5 g/dl (13.5-17.5); MEAN CORPUSCULAR HGB CONC 30.7 g/dl (32.0-36.5); MEAN CORPUSCULAR VOLUME 97.5 fl (80.0-96.0); PLATELET COUNT, AUTOMATED 230 10^3/uL (150-450); RED BLOOD COUNT 3.17 10^6/uL (4.30-6.10); WHITE BLOOD COUNT 4.9 10^3/uL (4.0-10.0)
[2020-08-06 14:35] LABS: CREATININE FOR GFR 4.67 MG/DL (0.70-1.30); GLOMERULAR FILTRATION RATE 14.1 (>56); POTASSIUM SERUM 5.4 MEQ/L (3.5-5.1)
[2020-08-06] MEDS ORDERED: FUROSEMIDE 40 MG TAB PO ONE (18:45)
--- NOTE | 2020-08-06 19:12 | IPNPDOC ---
Subjective Date Seen The patient was seen on 08/06/20. Subjective Chief Complaint/HPI Mr. Parrish is a 55 year old male with ESRD on HD, afib, DM type 2, diastolic CHF, CAD s/p NSTEMI, and PVD, here with osteomyelitis s/p amputation of the L hallus and metatarsal. He is in the ARU for rehab. This afternoon he was feeling well without complaints. Denies fever/chills, chest pain, abdominal pain, diarrhea, or dysuria. He has chronic dyspnea that has been unchanged. Constitutional: Denies: Chills, Fever Eyes: Denies: Vision change ENT: Denies: Sore Throat Pulmonary: Reports: Dyspnea (chronic and not any worse than usual) Cardiovascular: Denies: Chest Pain Gastrointestinal: Denies: Nausea, Abdominal Pain, Diarrhea Genitourinary: Denies: Dysuria Objective Physical Examination General Exam: Positive: Alert, Cooperative Eye Exam: Positive: EOMI; Negative: Sclera icteric ENT Exam: Positive: Atraumatic, Mucous membr. moist/pink Neck Exam: Positive: Supple Chest Exam: Positive: Clear to auscultation Heart Exam: Positive: Rate Normal, Regular Rhythm Abdomen Exam: Positive: Normal bowel sounds, Soft; Negative: Tenderness Extremity Exam: Positive: Edema Skin Exam: Positive: Other skin issue (Statis dermatits of the legs bilaterally) Neuro Exam: Positive: Normal Speech, Cranial Nerves 3-12 NL Psych Exam: Positive: Mental status NL, Mood NL Assessment /Plan Assessment Mr. Parrish is a 55 year old male who was at [facility] for osteomyelitis s/p amputation and now in ARU for rehab. He will be done with Levaquin on 08/07/2020. Otherwise he has ESRD on dialysis MWF. His potassium as of late, has been mildly elevated Plan/VTE VTE Prophylaxis Ordered?: Yes Plan 1. L foot osteomyelitis - S/P amputation of hallux and metatarsal - Levaquin q48 hrs (end date 08/07/20) - Plavix (completing 30 days) - Eliquis 2. ESRD on Dialysis MWF - Nephrology following recommendations appreciated - Continue Calcium acetate 3. Mineral Bone Disease - Nephrology following recommendations appreciated - Continue velphoro, calcium acetate 4. Hyperkalemia - Potassium has been boarder line high during admission - Recheck potassium today which was mildly elevated. Will give dose of Lasix and recheck tomorrow. 5. DM 2 - Continue carb consistent diet, ISS, and levemir 6. Paroxysmal afib - In sinus rhythm. Continue Coreg and eliquis 7. CHF - Stable. On Coreg. On Torsemide and HD. 8. CAD - History of NSTEMI. Continue Coreg 9. HTN - Continue Coreg and amlodipine 10. Asthma - Duonebs prn 11. DVT ppx - On apixaban VS, I&O, 24H, Fishbone Vital Signs/I&O Vital Signs Date Time Temp Pulse Resp B/P (MAP) Pulse Ox O2 Delivery O2 Flow Rate FiO2 08/06/20 14:00 97.0 84 18 142/69 (93) 96 Room Air I&O- Last 24 Hours up to 6 AM 08/06/20 06:00 Intake Total 720 ml Output Total 4350 ml Balance -3630 ml Laboratory Data 24H LABS Laboratory Tests 2 08/05/20 20:16: Bedside Glucose (Misc Panel) 241H 08/06/20 05:44: Bedside Glucose (Misc Panel) 125H 08/06/20 11:40: Bedside Glucose (Misc Panel) 137H 08/06/20 13:45: Nucleated Red Blood Cells % (auto) 0.0, Anion Gap 5L, Glomerular Filtration Rate 14.1L, Calcium Level 9.0 08/06/20 17:03: Bedside Glucose (Misc Panel) 200H CBC/BMP Laboratory Tests 08/06/20 13:45 SAMANTHA GEUVARA DO Aug 06, 2020 19:12
[2020-08-06 20:14] VITALS: BP 156/70
[2020-08-06] MEDS: RAMELTEON 8 MG TAB (ROZEREM) PO SCH (21:03)
[2020-08-06] MEDS: AMITRIPTYLINE 25 MG TAB PO SCH (21:04)
[2020-08-06] MEDS: **NOTE PATIENT COMMENT** MISC XX SCH (21:18)
[2020-08-07 06:03] VITALS: BP 154/80
[2020-08-07] MEDS: HumaLOG INSULIN (NovoLOG) PER UNIT SC SCH ×4 (07:38→20:40)
[2020-08-07] MEDS: LEVEMIR (INSULIN DETEMIR) 1 UNITS/0.01ML SC SCH ×2 (07:39→20:39)
[2020-08-07] MEDS: CARVedilol 6.25 MG TAB PO SCH ×2 (07:39→20:36)
[2020-08-07] MEDS: amLODIPine 5 MG TAB PO SCH (07:39)
[2020-08-07] MEDS: CLOPIDOGREL 75 MG TAB PO SCH (07:39)
[2020-08-07] MEDS: SUCROFERRIC OXYHYDROXIDE 500MG CHEW TAB (VELPHORO) PO SCH ×3 (07:40→17:18)
[2020-08-07] MEDS: APIXABAN 5 MG TAB (ELIQUIS) PO SCH ×2 (07:40→20:36)
[2020-08-07] MEDS: allopurinoL 100 MG TAB PO SCH (07:40)
[2020-08-07] MEDS: LIDOCAINE 5% (LIDODERM) PATCH TD SCH (07:40)
[2020-08-07] MEDS: CALCIUM ACETATE 667MG GELCAP PO SCH ×3 (07:40→17:18)
[2020-08-07] MEDS: REMEDY PHYTOPLEX Z-GUARD PASTE 113GM TUBE (FROM STOREROOM PRODUCT) TOP SCH ×3 (07:40→20:39)
[2020-08-07] MEDS: ACETAMINOPHEN 500 MG TAB PO SCH ×3 (07:40→20:36)
[2020-08-07] MEDS: VANICREAM MOISTURIZING SKIN CREAM 113GM TUBE TOP SCH (07:41)
[2020-08-07 07:52] LABS: HEMATOCRIT 34.8 % (42.0-52.0); HEMOGLOBIN 10.5 g/dl (13.5-17.5); MEAN CORPUSCULAR HEMOGLOBIN 29.4 pg (27.0-33.0); MEAN CORPUSCULAR HGB CONC 30.2 g/dl (32.0-36.5); MEAN CORPUSCULAR VOLUME 97.5 fl (80.0-96.0); PLATELET COUNT, AUTOMATED 216 10^3/uL (150-450); RED BLOOD COUNT 3.57 10^6/uL (4.30-6.10)
[2020-08-07] MEDS: IPRATROPIUM 0.5MG/ALBUTEROL 2.5MG INH SOL UD 3ML (DUONEB) NEB SCH ×3 (08:00→20:00)
[2020-08-07] MEDS: ADVAIR HFA 230/21MCG INHALER INH SCH ×2 (08:00→20:28)
[2020-08-07 08:57] LABS: CALCIUM LEVEL 8.8 MG/DL (8.5-10.1); CREATININE FOR GFR 5.52 MG/DL (0.70-1.30); GLOMERULAR FILTRATION RATE 11.6 (>56); POTASSIUM SERUM 5.9 MEQ/L (3.5-5.1)
[2020-08-07] MEDS: TORSEMIDE 20 MG TAB PO SCH (09:21)
--- NOTE | 2020-08-07 10:54 | IPN ---
DATE: 08/04/2020 Mr. Parrish is seen this morning at his bedside. He is currently in the physical therapy gym in the wheelchair. He reports some bleeding from his catheter site removal which stopped after the nursing staff applied a new dressing. He denies any nausea, vomiting, dyspnea or chest pain. On physical examination, temperature is 97.7 degrees Fahrenheit, heart rate is 70 per minute and respiratory rate 18 per minute. Blood pressure 127/64 mmHg and oxygen saturation 98% on room air. Head is atraumatic. Neck supple and is not JVD abnormally elevated. Catheter removal site on left upper chest is without any bleeding and dressing is dry. Heart sounds are regular and lungs clear to auscultation. Abdomen soft and nontender, and extremities without any cyanosis or clubbing. Right arm arteriovenous (AV) graft is patent. His left foot and right leg are wrapped in dressing. Neurologically, he is awake, alert and oriented x3. Today's labs show WBC count 5.7, hemoglobin 8.5 and hematocrit 27.8. Platelets 225. PROBLEMS: 1. End-stage renal disease. Patient had his hemodialysis yesterday and next dialysis will be scheduled for tomorrow. No need for dialysis today. 2. Hyperkalemia. Patient has been dialyzed three days in a row due to the current hyperkalemia and we anticipate improvement in his potassium level. His electrolytes will be checked again tomorrow morning. 3. Anemia. His anemia gets worse due to probably some blood loss and ongoing left foot wound and infection. He is receiving Aranesp 300 mcg once a week with dialysis along with iron 100 mg with each hemodialysis. 4. Left foot wound following amputation of two medial toes. Patient remains on antibiotics and is afebrile. Nursing staff reports that wound has been clean without any drainage. [facility]
--- NOTE | 2020-08-07 10:56 | IPN ---
DATE: 08/05/2020 SUBJECTIVE: Mr. Parrish seen this morning on his bedside. He is currently in the wheelchair, still working with physical therapist. He has significant swelling of his lower extremities and had an ultrasound done yesterday, which was negative for DVT. Patient reports to be compliant with his fluid restriction. PHYSICAL EXAMINATION: Temperature 97.2 degrees Fahrenheit, heart rate 78 per minute, respiratory rate 18 per minute, blood pressure 145/72 mmHg and oxygen saturation 94% on room air. Head is atraumatic. Neck is supple and JVD not abnormally elevated sitting upright in the chair. Heart sounds are regular. Lungs sound clear to auscultation. Abdomen obese, soft and nontender. Extremities without any cyanosis or clubbing. Left foot and right leg both are wrapped in dressings. Neurologically, he is awake, alert and oriented x3. LABORATORY DATA: Today's labs: WBC 5.8, hemoglobin 8.5, hematocrit 28.0. Sodium 137, potassium 5.1, CO2 27, BUN 57 and creatinine 5.73. PROBLEMS: 1. End-stage renal disease: Patient is on maintenance hemodialysis and he is going to be dialyzed this afternoon. Will plan to remove about 3 liters of fluid today. 2. Hypervolemia with bilateral lower extremity edema: Patient is somewhat volume overloaded, though he is still not short of breath. Will try to remove 3 liters of fluid today and then again try an extra ultrafiltration tomorrow for further 2 to 3 liters of fluid removal. 3. Hyperkalemia: His potassium level is high normal and does not need any urgent intervention. This will be corrected with dialysis. 4. Anemia: Anemia is slightly worse, probably related to hemodilution. He receives Aranesp once a week during dialysis, which will be continued. 5. Hypertension: Blood pressure is well controlled on current antihypertensive meds. No changes are being made today. [facility]
[2020-08-07] MEDS ORDERED: SOD POLYSTYRENE SULFONATE SUSP 15 GM/60 ML UD PO ONE (11:00)
[2020-08-07 14:00] VITALS: BP 150/74
[2020-08-07 20:01] VITALS: BP 159/78
[2020-08-07] MEDS: AMITRIPTYLINE 25 MG TAB PO SCH (20:36)
[2020-08-07] MEDS: RAMELTEON 8 MG TAB (ROZEREM) PO SCH (20:36)
[2020-08-07] MEDS: **NOTE PATIENT COMMENT** MISC XX SCH (20:38)
[2020-08-08 05:06] VITALS: BP 162/80
[2020-08-08] MEDS: LevoFLOXacin 750 MG TABLET PO SCH (05:09)
[2020-08-08] MEDS: ADVAIR HFA 230/21MCG INHALER INH SCH ×2 (07:54→19:38)
[2020-08-08] MEDS: IPRATROPIUM 0.5MG/ALBUTEROL 2.5MG INH SOL UD 3ML (DUONEB) NEB SCH ×3 (08:00→19:39)
[2020-08-08] MEDS: LEVEMIR (INSULIN DETEMIR) 1 UNITS/0.01ML SC SCH ×2 (08:32→20:57)
[2020-08-08] MEDS: CALCIUM ACETATE 667MG GELCAP PO SCH ×3 (08:32→18:18)
[2020-08-08] MEDS: SUCROFERRIC OXYHYDROXIDE 500MG CHEW TAB (VELPHORO) PO SCH ×3 (08:32→18:18)
[2020-08-08] MEDS: HumaLOG INSULIN (NovoLOG) PER UNIT SC SCH ×4 (08:32→20:57)
[2020-08-08] MEDS: allopurinoL 100 MG TAB PO SCH (08:33)
[2020-08-08] MEDS: ACETAMINOPHEN 500 MG TAB PO SCH ×3 (08:33→20:56)
[2020-08-08] MEDS: CLOPIDOGREL 75 MG TAB PO SCH (08:33)
[2020-08-08] MEDS: APIXABAN 5 MG TAB (ELIQUIS) PO SCH ×2 (08:34→20:56)
[2020-08-08] MEDS: amLODIPine 5 MG TAB PO SCH (08:34)
[2020-08-08] MEDS: CARVedilol 6.25 MG TAB PO SCH ×2 (08:34→20:57)
[2020-08-08] MEDS: TORSEMIDE 20 MG TAB PO SCH (08:34)
[2020-08-08] MEDS: LIDOCAINE 5% (LIDODERM) PATCH TD SCH ×2 (08:35→08:40)
[2020-08-08] MEDS: REMEDY PHYTOPLEX Z-GUARD PASTE 113GM TUBE (FROM STOREROOM PRODUCT) TOP SCH ×3 (08:35→20:58)
[2020-08-08] MEDS ORDERED: LIDOCAINE 1% SDV 5ML VIAL SQ ONE (11:00)
--- NOTE | 2020-08-08 11:11 | IPNPDOC ---
Text Note Date of Service The patient was seen on 08/08/20. NOTE SUBJECTIVE: Patient was seen and examined today at bedside. Continues to work with PT/OT. States he is feeling tired this morning after his PT session. Otherwise no new issues or complaints. OBJECTIVE: PHYSICAL EXAMINATION: VITAL SIGNS: Please see below. GENERAL: Alert, laying comfortably in bed, in no acute distress HEENT: NC, AT, moist mucous membranes, no JVD noted. CARDIOVASCULAR: RRR, normal S1 and S2 RESPIRATORY: CTAB, no wheezing, rhonchi, or rales ABDOMINAL: Soft, nontender, nondistended. EXTREMITIES: Trace bilateral lower extremity edema. Clean dressing over the left foot. Bilateral calfs wrapped in rai bandages. ASSESSMENT/PLAN: 55 year old male with history of ESRD on HD admitted to acute rehab after amputation for diabetic foot infection. 1. ESRD on hemodialysis. Cr and electrolytes stable. Volume status stable. He will continue on MWF dialysis schedule while at rehab. 2. Hyperkalemia. Required a dose of Kayexalate yesterday for potassium level of 5.9, repeat labs today are pending. Expect improvement with dialysis this afternoon as well. 3. Anemia in ESRD. Continue on Aranesp and Venofer with dialysis. Hemoglobin lev els have been stable. 4. Diabetic foot ulcer, status post amputation of 1st and 2nd toes on left foot. Patient is afebrile and continues with dressing changes and rehabilitation. He continues on Levaquin 750mg q48h for antibiotic coverage. 5. Hypertension. Well controlled. Continue current dose of Amlodipine 5 mg, torsemide 40mg, carvedilol 6.25mg BID. 6. Chronic kidney disease/mineral bone disease. Continue current dose of Velphoro and Phoslo. Phosphorus levels have been stable, recheck pending today. Thank you for the consultation on this patient, we will continue to follow along. VS,Fishbone, I+O VS, Fishbone, I+O Vital Signs Date Time Temp Pulse Resp B/P (MAP) Pulse Ox O2 Delivery O2 Flow Rate FiO2 08/08/20 08:34 87 165/71 08/08/20 05:06 96.8 18 97 Room Air I&O- Last 24 Hours up to 6 AM 08/08/20 05:59 Intake Total 1400 ml Output Total 2000 ml Balance -600 ml GME ATTESTATION GME ATTESTATION My faculty preceptor for this patient encounter was physically present during the encounter and was fully available. All aspects of the patient interview, examination, medical decision making process, and medical care plan development were reviewed and approved by the faculty preceptor. The faculty preceptor is aware and concurs with the plan as stated in the body of this note and will attest to such by his/her cosignature. ATTENDING NOTE ESRD on HD CHF and LE edema Anemia in ESRD Diabetic foot ulcer s/p Lt two toes amputation. DM type 2 Insulin Dependent CKD MBD Cont TIW HD. Loop diuretic. WILLEM with HD. Oral Abx for foot infection. Oral PO4 binders. MARILY MANRIQUEZ D.O. Aug 08, 2020 11:11 ANA PALACIOS MD Aug 10, 2020 20:51
[2020-08-08 13:36] LABS: BASO % 0.7 % (0.0-1.0); EOS # 0.1 10^3/uL (0.0-0.5); EOS % 2.4 % (0.0-3.0); HEMATOCRIT 31.9 % (42.0-52.0); HEMOGLOBIN 9.8 g/dl (13.5-17.5); LYMPH # 1.4 10^3/uL (1.5-5.0); LYMPH % 24.6 % (24.0-44.0); MEAN CORPUSCULAR HEMOGLOBIN 29.8 pg (27.0-33.0); MEAN CORPUSCULAR HGB CONC 30.7 g/dl (32.0-36.5); MONO # 0.4 10^3/uL (0.0-0.8); NEUTROPHILS # 3.5 10^3/uL (1.5-8.5); NEUTROPHILS % 63.2 % (36.0-66.0); PLATELET COUNT, AUTOMATED 227 10^3/uL (150-450); RED BLOOD COUNT 3.29 10^6/uL (4.30-6.10); WHITE BLOOD COUNT 5.5 10^3/uL (4.0-10.0)
[2020-08-08 14:00] VITALS: BP 140/60
[2020-08-08 14:09] LABS: ALBUMIN 2.8 GM/DL (3.2-5.2); CALCIUM LEVEL 9.5 MG/DL (8.5-10.1); CREATININE FOR GFR 6.88 MG/DL (0.70-1.30); PHOSPHORUS LEVEL 6.9 MG/DL (2.5-4.9); POTASSIUM SERUM 6.4 MEQ/L (3.5-5.1)
--- NOTE | 2020-08-08 17:47 | IPN ---
DATE: 08/07/2020 SUBJECTIVE: Patient was seen and examined at the bedside today morning. He is afebrile, hemodynamically stable. He denies any active complaints at this time apart from the swelling of the lower extremities and tomorrow is patients regular day of dialysis. OBJECTIVE: Vital signs: Temperature is 96.6 degrees Fahrenheit, blood pressure 150/74, pulse is 78, respiratory rate of 17, saturating 97% on room air. Intake and output: Urine output recorded is 2 liters. Weight in the bed scale is 115.2 kg. PHYSICAL EXAMINATION: General: Patient is awake, alert, oriented times three, sitting up in the wheelchair, no apparent distress. Head and neck exam: Extraocular muscles intact. Pupils equally round and reactive to light. Mucous membranes are moist. Neck is supple. There is no jugular venous distension (JVD). Cardiovascular: S1, S2, regular rate. 1+ edema of the bilateral lower extremities. Respiratory: Chest is clear to auscultation bilaterally. Bilateral equal air entry. No rales or rhonchi. Abdomen: Soft, positive bowel sounds, nontender. Musculoskeletal: Patient has a dressing on the left foot and compression bandages on the right leg. 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 Power is 5/5 in bilateral upper extremities. LABORATORY REVIEW: CBC showed WBC 5, hemoglobin is 10.5, platelets are 216. BMP showed sodium 136, potassium 5.9, chloride 104, bicarbonate 24, BUN 66, creatinine is 5.5. CURRENT INPATIENT MEDICATIONS: Patients medications were all reviewed by myself. I gave him a dose of Kayexalate 15 mg by mouth times one dose. No other significant change in the medications today as compared with yesterday. ASSESSMENT AND PLAN: 1. End-stage renal disease. Patient will be dialyzed tomorrow morning as per his regular schedule. 2. Lower extremity edema. Continue current dose of torsemide. Rest of the fluid management will be done with dialysis tomorrow morning. 3. Hyperkalemia. Patient was given a dose of Kayexalate 15 grams by mouth times one dose in the morning. 4. Anemia in end-stage renal disease. Hemoglobin level is within the optimal range now. Continue current dose of Venofer and Aranesp. 5. Chronic gout secondary to chronic kidney disease. Continue current dose of allopurinol 100 mg by mouth daily. 6. Hypertension. Continue current dose of amlodipine 5 mg by mouth daily, Coreg 6.25 mg by mouth twice a day. 7. Left foot diabetic infection. Patient continues to be on Levaquin 750 mg by mouth IV every 48 hours. 8. Chronic kidney disease-mineral bone disease with hyperphosphatemia. Continue current dose of PhosLo one capsule three times a day with meals along with Velphoro 500 mg by mouth with meals. MTDD
[2020-08-08 20:00] VITALS: BP 116/72
[2020-08-08] MEDS: AMITRIPTYLINE 25 MG TAB PO SCH (20:55)
[2020-08-08] MEDS: RAMELTEON 8 MG TAB (ROZEREM) PO SCH (20:56)
[2020-08-08] MEDS: **NOTE PATIENT COMMENT** MISC XX SCH (20:58)
[2020-08-09 06:04] VITALS: BP 148/78
[2020-08-09] MEDS: ADVAIR HFA 230/21MCG INHALER INH SCH (07:18)
[2020-08-09] MEDS: IPRATROPIUM 0.5MG/ALBUTEROL 2.5MG INH SOL UD 3ML (DUONEB) NEB SCH ×2 (07:18→13:36)
[2020-08-09] MEDS: HumaLOG INSULIN (NovoLOG) PER UNIT SC SCH ×2 (07:19→11:57)
[2020-08-09] MEDS: SUCROFERRIC OXYHYDROXIDE 500MG CHEW TAB (VELPHORO) PO SCH ×2 (08:59→11:56)
[2020-08-09] MEDS: REMEDY PHYTOPLEX Z-GUARD PASTE 113GM TUBE (FROM STOREROOM PRODUCT) TOP SCH (09:00)
[2020-08-09] MEDS: LIDOCAINE 5% (LIDODERM) PATCH TD SCH (09:00)
[2020-08-09] MEDS: CLOPIDOGREL 75 MG TAB PO SCH (09:00)
[2020-08-09] MEDS: LEVEMIR (INSULIN DETEMIR) 1 UNITS/0.01ML SC SCH (09:00)
[2020-08-09] MEDS: ACETAMINOPHEN 500 MG TAB PO SCH (09:00)
[2020-08-09] MEDS: CALCIUM ACETATE 667MG GELCAP PO SCH ×2 (09:00→11:56)
[2020-08-09] MEDS: APIXABAN 5 MG TAB (ELIQUIS) PO SCH (09:00)
[2020-08-09 09:01] VITALS: BP 148/78
[2020-08-09] MEDS: TORSEMIDE 20 MG TAB PO SCH (09:01)
[2020-08-09] MEDS: CARVedilol 6.25 MG TAB PO SCH (09:01)
[2020-08-09] MEDS: amLODIPine 5 MG TAB PO SCH (09:01)
[2020-08-09] MEDS: allopurinoL 100 MG TAB PO SCH (09:01)
[2020-08-09] MEDS: VANICREAM MOISTURIZING SKIN CREAM 113GM TUBE TOP SCH (09:02)
[2020-08-09 10:47] LABS: BASO % 0.5 % (0.0-1.0); EOS # 0.1 10^3/uL (0.0-0.5); HEMATOCRIT 33.6 % (42.0-52.0); HEMOGLOBIN 10.3 g/dl (13.5-17.5); LYMPH # 1.3 10^3/uL (1.5-5.0); LYMPH % 23.5 % (24.0-44.0); MEAN CORPUSCULAR HEMOGLOBIN 29.5 pg (27.0-33.0); MEAN CORPUSCULAR HGB CONC 30.7 g/dl (32.0-36.5); MEAN CORPUSCULAR VOLUME 96.3 fl (80.0-96.0); MONO # 0.5 10^3/uL (0.0-0.8); MONO % 8.3 % (0.0-5.0); NEUTROPHILS # 3.6 10^3/uL (1.5-8.5); NEUTROPHILS % 64.6 % (36.0-66.0); PLATELET COUNT, AUTOMATED 225 10^3/uL (150-450); RED BLOOD COUNT 3.49 10^6/uL (4.30-6.10); WHITE BLOOD COUNT 5.5 10^3/uL (4.0-10.0)
[2020-08-09 11:04] LABS: ALBUMIN 2.8 GM/DL (3.2-5.2); CALCIUM LEVEL 8.5 MG/DL (8.5-10.1); CREATININE FOR GFR 5.36 MG/DL (0.70-1.30); PHOSPHORUS LEVEL 5.9 MG/DL (2.5-4.9); POTASSIUM SERUM 5.6 MEQ/L (3.5-5.1)
--- NOTE | 2020-08-09 11:43 | IPNPDOC ---
Text Note Date of Service The patient was seen on 08/09/20. NOTE SUBJECTIVE: Patient was seen and examined today at bedside. States he is being discharged home today. No new issues or complaints. OBJECTIVE: PHYSICAL EXAMINATION: VITAL SIGNS: Please see below. GENERAL: Alert, laying comfortably in bed, in no acute distress HEENT: NC, AT, moist mucous membranes, no JVD noted. CARDIOVASCULAR: RRR, normal S1 and S2 RESPIRATORY: CTAB, no wheezing, rhonchi, or rales ABDOMINAL: Soft, nontender, nondistended. EXTREMITIES: Trace bilateral lower extremity edema. Clean dressing over the left foot. Bilateral calfs wrapped in rai bandages. ASSESSMENT/PLAN: 55 year old male with history of ESRD on HD admitted to acute rehab after amputation for diabetic foot infection. 1. ESRD on hemodialysis. Cr and electrolytes stable. Volume status stable. He will continue on his regular MWF dialysis schedule. 2. Hyperkalemia. Discussed limiting dietary potassium intake with patient. Received one dose of Kayexalate on 08/07. 3. Anemia in ESRD. Continue on Aranesp and Venofer with dialysis. Hemoglobin levels have been stable. 4. Diabetic foot ulcer, status post amputation of 1st and 2nd toes on left foot. Patient is afebrile and continues with dressing changes and rehabilitation. He continues on Levaquin 750mg q48h for antibiotic coverage. 5. Hypertension. Well controlled. Continue current dose of Amlodipine 5 mg, torsemide 40mg, carvedilol 6.25mg BID. 6. Chronic kidney disease/mineral bone disease. Continue on Velphoro and Phoslo. Thank you for the consultation on this patient, we will continue to follow along. VS,Fishbone, I+O VS, Fishbone, I+O Laboratory Tests 08/08/20 13:13 08/09/20 10:22 Vital Signs Date Time Temp Pulse Resp B/P (MAP) Pulse Ox O2 Delivery O2 Flow Rate FiO2 08/09/20 09:01 86 148/78 08/09/20 06:04 96.7 18 95 Room Air I&O- Last 24 Hours up to 6 AM 08/09/20 06:00 Intake Total 990 ml Output Total 4525 ml Balance -3535 ml GME ATTESTATION GME ATTESTATION My faculty preceptor for this patient encounter was physically present during the encounter and was fully available. All aspects of the patient interview, examination, medical decision making process, and medical care plan development were reviewed and approved by the faculty preceptor. The faculty preceptor is aware and concurs with the plan as stated in the body of this note and will attest to such by his/her cosignature. ATTENDING NOTE ESRD on HD LE edema Lt foot diabetic ulcer s/p toe amputation Anemia in ESRD CKD MBD cont outpatient HD schedule. Cont levaquin on DC. MARILY MANRIQUEZ D.O. Aug 09, 2020 11:43 ANA PALACIOS MD Aug 10, 2020 21:35
[2020-08-09] MEDS ORDERED: ADVA230A INH (12:23)
[2020-08-09] MEDS ORDERED: ACET-683 PO (12:23)
[2020-08-09] MEDS ORDERED: TORS20TA2 PO (12:23)
[2020-08-09] MEDS ORDERED: ALLO10TA PO (12:23)
[2020-08-09] MEDS ORDERED: CALC1CAP PO (12:23)
[2020-08-09] MEDS ORDERED: VELP5CHW PO (12:23)
[2020-08-09] MEDS ORDERED: ELIQ5TAB PO (12:23)
[2020-08-09] MEDS ORDERED: INSUDET SC (12:23)
[2020-08-09] MEDS ORDERED: CARV6.25 PO (12:23)
[2020-08-09] MEDS ORDERED: AMIT25TA PO (12:23)
[2020-08-09] MEDS ORDERED: CLOP75TA2 PO (12:23)
[2020-08-09] MEDS ORDERED: AMLO1TAB24 PO (12:23)
--- NOTE | 2020-08-29 11:46 | PMRDS ---
DATE OF ADMISSION: 07/28/2020 DATE OF DISCHARGE: 08/09/2020 CHIEF COMPLAINT/DISCHARGE DIAGNOSIS: Left first metatarsal amputation. HISTORY OF PRESENT ILLNESS: A 55-year-old male with a past medical history of diabetes, asthma, atrial fibrillation, hypertension, end-stage renal disease on dialysis, diastolic CHF, CAD; status post NSTEMI, pulmonary hypertension, PVD; status post femoral artery stenting with non-healing lower extremity ulcers, who presented to [facility] ED on 07/18/2020 with left lower extremity pain and admitted for possible osteomyelitis. He was started on Vancomycin and Zosyn for broad spectrum coverage and a Heparin drip for possible acute limb ischemia. He was seen by podiatry, who performed a left first digit and metatarsal amputation, followed by a left lower extremity angiogram performed by vascular surgery. He later underwent a fistulogram on 07/21/2020. He was transitioned from I.V. to p.o. Levaquin and evaluated by therapy and deemed medically appropriate for discharge to ARU on 07/28/2020. PAST MEDICAL HISTORY: As per HPI. HOSPITAL COURSE: Patient was admitted and enrolled in comprehensive PT/OT program. He received 24 hour nursing supervision and weekly team meetings that were held to discuss his progress. Patient complained of left shoulder pain likely due to the rotator cuff tendinopathy or subacromial impingement, which did respond to Lidoderm patch, Tylenol and taping. He was maintained on a fluid restriction, had dialysis three times a week and made significant and steady gains in therapy. He was deemed medically and functionally stable to return home. DISCHARGE MEDICATIONS: As per instructions. FUNCTIONAL HISTORY: On discharge, patient was modified independent. Thank you for this referral. YOON
== END 2020-08-09 15:15 | disposition home health service (06) | DRG 559 ==
LOC: M PM&R 18:08
PROVIDERS: ADMIT Physical Medicine & Rehabilitation; ATTEND Physical Medicine & Rehabilitation
PROC: 5A1D70Z Performance of Urinary Filtration, Intermittent, Less than 6 Hours Per Day (ICD-10-PCS; principal; 2020-07-29)
DX: Z47.81 Encounter for orthopedic aftercare following surgical amputation (principal); N18.6 End stage renal disease; I50.32 Chronic diastolic (congestive) heart failure; I48.92 Unspecified atrial flutter; Z89.422 Acquired absence of other left toe(s); E11.51 Type 2 diabetes mellitus with diabetic peripheral angiopathy without gangrene; J45.909 Unspecified asthma, uncomplicated; I48.91 Unspecified atrial fibrillation; I25.10 Atherosclerotic heart disease of native coronary artery without angina pectoris; I25.2 Old myocardial infarction; I27.20 Pulmonary hypertension, unspecified; Z79.899 Other long term (current) drug therapy; Z88.6 Allergy status to analgesic agent; Z91.018 Allergy to other foods; D63.1 Anemia in chronic kidney disease; E87.5 Hyperkalemia; E11.621 Type 2 diabetes mellitus with foot ulcer; L97.529 Non-pressure chronic ulcer of other part of left foot with unspecified severity; D50.0 Iron deficiency anemia secondary to blood loss (chronic); E66.9 Obesity, unspecified; Z99.2 Dependence on renal dialysis

== ENCOUNTER → 2020-10-28 | Outpatient (CLI) | payer MEDICAID, MEDICARE ==
[~2020-10-28] MED LIST changes: +ALLO10TA PO; +AMIT25TA PO; +ELIQ5TAB PO; +ISOVUE-300 61% 50ML VIAL As Ordered ONE; +LIDOCAINE 1% MDV 20ML VIAL As Ordered ONE; +METOPROLOL 5 MG/5 ML VIAL As Ordered ONE; +MIDAZOLAM INJ 2MG/2ML VIAL (J2250 PER 1MG) As Ordered ONE; +fentaNYL 100 MCG/2 ML INJECTION (J3010) As Ordered ONE
--- NOTE | 2020-10-28 13:44 | ROOPDOC ---
[facility] Report Of Operation Report of Operation DATE OF PROCEDURE: 10/28/20 PREPROCEDURE DIAGNOSES: End-stage renal disease with increased pulsatility, infiltrations, and difficulty with cannulation right AV graft POSTPROCEDURE DIAGNOSES: Same. PROCEDURE: 1. Ultrasound-guided access right brachial axillary AV graft 2. Right upper extremity fistulogram 3. Angioplasty right AV graft into axillary vein with a by 40 [place] balloon and 10 x 40 [place] balloon 4. Completion venogram SURGEON: Kaitlin Schuler MD ANESTHESIA: Local anesthesia 3 mL lidocaine. Moderate intravenous conscious sedation with administered by Dr. Schuler. The patient was independently monitored by registered nurse assigned to the Department of radiology using automated blood pressure, EKG, and pulse oximetry. The detailed sedation record is primarily stored in the hospital information system. The following is a brief sedation record: Start time 13:28, stop time 13:43, Versed 0.5 mg IV, fentanyl 25 g IV, Lopressor 5 mg IV. INDICATION FOR PROCEDURE: The very pleasant 55-year-old gentleman with end-stage renal disease currently dialyzing with a right brachial axillary AV graft and he has had increased pulsatility, infiltrations, and bleeding with difficulty cannulation. Risks benefits and alternatives to a fistulogram potential intervention were explained to the patient and he was agreeable to proceed. Informed consent was obtained. INTERPRETATION: 1. The AV anastomosis is widely patent where the graft anastomosis to the brachial artery. We examine this with ultrasound. 2. The graft is widely patent but there is a 90% stenosis word anastomosis with axillary artery, and then the axillary artery and veins back to the central system are all widely patent with no significant stenosis noted. 3. After angioplasty of the graft axillary anastomosis, there is widely patent flow with no significant residual stenosis, no extravasation. There is an excellent thrill and the graft and all the pulsatility has resolved. REPORT OF OPERATION: The patient was brought to the angiographic suite in stable condition. His right upper extremity was prepped and draped in sterile fashion. A timeout was performed. Local anesthesia was administered to skin and subcutaneous tissue over the graft near the AV anastomosis. Ultrasound was used to examine the AV anastomosis and it was noted to be widely patent with good inflow. A microneedle was used to access the graft under ultrasound guidance. A wire was passed through this access and the needle was removed and a 4 [place] sheath was placed and flushed with saline. A fistulogram and central venogram were performed. Please see interpretation above. Glidewire was advanced through this access and sheath was exchanged for 7 [place] sheath. We then advanced an 8 x 40 [place] balloon across to the graft axillary anastomosis. Three-minute inflations was performed and this provided some relief to the outflow, but we felt a larger balloon would likely resolve the stenoses. The balloon was exchanged for a 10 x 40 [place] balloon and another three-minute inflation was performed. Following this, there is widely patent inflow through the graft axillary vein anastomosis with no significant residual stenosis no extravasation. There was an excellent thrill in the graft. This concluded our procedure. A nbopbs-ft-pldib Prolene suture was placed at the graft and the graft was removed. The suture was secured in pressure was held for hemostasis. Sterile dressings were applied. The patient was taken to recovery in stable condition. He tolerated the procedure and the sedation well. ESTIMATED BLOOD LOSS: Approximately 5 mL. COMPLICATIONS: None. PLAN: It is okay to use the graft for dialysis. The infiltrations and bruising will resolve with time. It is okay to use ice and elevation to help the swelling go down. We would like to see the patient back in a month to check his graft and see if he is again developing any signs of proximal stenosis at the outflow. I've explained to him how important it is that we keep track of this and try to intervene before he has problems rather than after. He is agreeable to this plan. Okay to resume anticoagulation. We appreciate the opportunity to participate in the care of this patient. KAITLIN SCHULER MD Oct 28, 2020 13:44
[2020-10-28 14:20] VITALS: BP 197/92
== END ==
LOC: M IRPRO 12:34
PROVIDERS: ATTEND Surgery Vascular Surgery
DX: T82.590A Other mechanical complication of surgically created arteriovenous fistula, initial encounter (principal); N18.6 End stage renal disease; X58.XXXA Exposure to other specified factors, initial encounter; Z99.2 Dependence on renal dialysis
CPT/HCPCS: 36902; 99152; C1725; C1769; C1894; J1644; J2250; J3010; Q9967

== ENCOUNTER 2022-01-05 18:15 | Inpatient (IN) | payer MEDICARE, MEDICAID ==
[~2022-01-05] VITALS: Ht 190.5 cm; Wt 123.1 kg
[~2022-01-05 18:15] MED LIST changes: -AMIT25TA PO; +AMIT25TA17 PO; +ERGO500029 PO; -ISOVUE-300 61% 50ML VIAL As Ordered ONE; -LIDOCAINE 1% MDV 20ML VIAL As Ordered ONE; -LISI-538 PO; +LISI20TA33 PO; -METOPROLOL 5 MG/5 ML VIAL As Ordered ONE; -MIDAZOLAM INJ 2MG/2ML VIAL (J2250 PER 1MG) As Ordered ONE; -VITA50005 PO; -fentaNYL 100 MCG/2 ML INJECTION (J3010) As Ordered ONE
[2022-01-05] MEDS ORDERED: PIPERACILLIN/TAZOBACTAM SOD 2.25 GM in D5W MINI-BAG PLUS 50 ML IV ONE (22:55)
[2022-01-05] MEDS ORDERED: VANCOMYCIN HCL 2,000 MG in D5W 500 ML IV ONE (22:55)
[2022-01-05] MEDS ORDERED: NS 1,000 ML IV SCH (22:55)
[2022-01-05 23:24] LABS: BASO % 0.3 % (0.0-1.0); EOS % 0.5 % (0.0-3.0); HEMATOCRIT 37.2 % (42.0-52.0); HEMOGLOBIN 11.4 g/dl (13.5-17.5); LYMPH # 1.2 10^3/uL (1.5-5.0); LYMPH % 15.4 % (24.0-44.0); MEAN CORPUSCULAR HEMOGLOBIN 29.3 pg (27.0-33.0); MEAN CORPUSCULAR HGB CONC 30.6 g/dl (32.0-36.5); MEAN CORPUSCULAR VOLUME 95.6 fl (80.0-96.0); MONO # 0.7 10^3/uL (0.0-0.8); MONO % 9.2 % (2.0-8.0); NEUTROPHILS # 5.5 10^3/uL (1.5-8.5); NEUTROPHILS % 73.7 % (36.0-66.0); PLATELET COUNT, AUTOMATED 246 10^3/uL (150-450); RED BLOOD COUNT 3.89 10^6/uL (4.30-6.10); WHITE BLOOD COUNT 7.5 10^3/uL (4.0-10.0)
[2022-01-05] MEDS ORDERED: VELP5CHW PO (23:37)
[2022-01-05] MEDS ORDERED: LEVE1INJ5 SC (23:37)
[2022-01-05] MEDS ORDERED: ELIQ2.5T PO (23:37)
[2022-01-05] MEDS ORDERED: PLAV1TAB2 PO (23:37)
[2022-01-05] MEDS ORDERED: HOME MED LIST COMPLETE! XX SCH (23:40)
[2022-01-05 23:43] LABS: ERYTHROCYTE SEDIMENTATION RATE 86 mm/hr (0-20)
[2022-01-06] MEDS ORDERED: VANCOMYCIN HCL 1,000 MG, VIAL MATE ADAPTER 1 EACH in NS 250 ML IV ONE ×6
[2022-01-06] MEDS ORDERED: DEXTROSE 50% 50 ML SYRINGE IV PRN (00:50)
[2022-01-06] MEDS ORDERED: VANCOMYCIN HCL 1,000 MG, VIAL MATE ADAPTER 1 EACH in NS 250 ML IV SCH ×2 (00:50→01:40)
[2022-01-06] MEDS ORDERED: MAALOX 30 ML SUSP *UDC PO PRN (00:50)
[2022-01-06] MEDS ORDERED: GLUCOSE 4GM CHEW TABLET PO PRN (00:50)
[2022-01-06] MEDS ORDERED: GLUCAGON INJ 1MG VIAL SC PRN (00:50)
[2022-01-06] MEDS ORDERED: MOM 30ML SUSPENSION UDC PO PRN (00:50)
[2022-01-06] MEDS ORDERED: ACETAMINOPHEN TAB 650MG DOSE (2X325MG) PO PRN (00:50)
[2022-01-06] MEDS ORDERED: ALBUTEROL 90 MCG/ACT 8GM HFA INHALER INH PRN (00:55)
[2022-01-06] MEDS ORDERED: ADVAIR HFA 230/21MCG INHALER INH PRN (00:55)
[2022-01-06] MEDS: CARVedilol 6.25 MG TAB PO SCH ×3 (02:05→21:02)
[2022-01-06 03:54] LABS: HEMATOCRIT 30.7 % (42.0-52.0); MEAN CORPUSCULAR HEMOGLOBIN 29.2 pg (27.0-33.0); MEAN CORPUSCULAR HGB CONC 30.3 g/dl (32.0-36.5); MEAN CORPUSCULAR VOLUME 96.5 fl (80.0-96.0); PLATELET COUNT, AUTOMATED 197 10^3/uL (150-450); RED BLOOD COUNT 3.18 10^6/uL (4.30-6.10); WHITE BLOOD COUNT 6.6 10^3/uL (4.0-10.0)
[2022-01-06 04:05] LABS: HEMOGLOBIN 9.3 g/dl (13.5-17.5)
[2022-01-06 04:07] LABS: INR 1.21; PROTHROMBIN TIME 15.7 SECONDS (12.7-14.5)
[2022-01-06 04:08] LABS: PARTIAL THROMBOPLASTIN TIME 41.4 SECONDS (25.9-37.0)
[2022-01-06 04:13] LABS: CALCIUM LEVEL 7.9 MG/DL (8.5-10.1); CREATININE FOR GFR 3.52 MG/DL (0.70-1.30); GLOMERULAR FILTRATION RATE 19.4 (>56); POTASSIUM SERUM 3.2 MEQ/L (3.5-5.1)
[2022-01-06 06:30] VITALS: BP 146/84
[2022-01-06] MEDS: DOCUSATE SODIUM 100MG CAPSULE PO SCH ×3 (09:00→21:00)
[2022-01-06] MEDS: PIPERACILLIN/TAZOBACTAM SOD 2.25 GM in D5W MINI-BAG PLUS 50 ML IV SCH ×3 (09:26→23:38)
[2022-01-06] MEDS: LEVEMIR (INSULIN DETEMIR) 1 UNITS/0.01ML SC SCH ×2 (09:26→21:02)
[2022-01-06] MEDS: HumaLOG INSULIN (NovoLOG) PER UNIT SC SCH ×4 (09:27→20:55)
[2022-01-06] MEDS: TORSEMIDE 20 MG TAB PO SCH (09:27)
[2022-01-06] MEDS: SUCROFERRIC OXYHYDROXIDE 500MG CHEW TAB (VELPHORO) PO SCH ×3 (09:27→18:16)
[2022-01-06 14:00] VITALS: BP 130/74
[2022-01-06] MEDS: **VANCO AFTER HD** MISC XX SCH (15:13)
[2022-01-06] MEDS: ADVAIR HFA 230/21MCG INHALER INH SCH (19:55)
[2022-01-06] MEDS: ALBUTEROL SULFATE 2.5 MG/0.5 ML INH NEB SOLN NEB PRN (19:55)
[2022-01-06] MEDS ORDERED: CLOPIDOGREL 75 MG TAB PO ONE (20:00)
[2022-01-06] MEDS ORDERED: IPRATROPIUM 0.5MG/ALBUTEROL 2.5MG INH SOL UD 3ML (DUONEB) NEB SCH (20:00)
[2022-01-06 20:22] LABS: CK-MB VALUE MASS 1.3 NG/ML (<3.6); MB/CK RELATIVE INDEX 5.42 (< OR =4)
[2022-01-06 22:00] VITALS: BP 131/75
[2022-01-07 06:00] VITALS: BP 176/69
[2022-01-07 06:54] LABS: HEMOGLOBIN 9.4 g/dl (13.5-17.5); MEAN CORPUSCULAR HEMOGLOBIN 29.1 pg (27.0-33.0); MEAN CORPUSCULAR HGB CONC 30.3 g/dl (32.0-36.5); PLATELET COUNT, AUTOMATED 223 10^3/uL (150-450); RED BLOOD COUNT 3.23 10^6/uL (4.30-6.10); WHITE BLOOD COUNT 8.3 10^3/uL (4.0-10.0)
[2022-01-07 06:58] VITALS: BP 142/90
[2022-01-07 07:17] LABS: CALCIUM LEVEL 8.5 MG/DL (8.5-10.1); CREATININE FOR GFR 5.01 MG/DL (0.70-1.30); GLOMERULAR FILTRATION RATE 12.9 (>56); POTASSIUM SERUM 3.6 MEQ/L (3.5-5.1)
[2022-01-07] MEDS: ADVAIR HFA 230/21MCG INHALER INH SCH ×2 (07:19→19:22)
[2022-01-07] MEDS: ALBUTEROL SULFATE 2.5 MG/0.5 ML INH NEB SOLN NEB PRN ×2 (07:19→19:22)
[2022-01-07] MEDS: HumaLOG INSULIN (NovoLOG) PER UNIT SC SCH ×4 (07:30→21:00)
[2022-01-07 07:32] LABS: CK-MB VALUE MASS 2.1 NG/ML (<3.6); MB/CK RELATIVE INDEX 7.5 (< OR =4)
[2022-01-07] MEDS: LEVEMIR (INSULIN DETEMIR) 1 UNITS/0.01ML SC SCH ×2 (07:33→21:29)
[2022-01-07] MEDS: PIPERACILLIN/TAZOBACTAM SOD 2.25 GM in D5W MINI-BAG PLUS 50 ML IV SCH ×2 (08:14→16:46)
[2022-01-07] MEDS: SUCROFERRIC OXYHYDROXIDE 500MG CHEW TAB (VELPHORO) PO SCH ×3 (08:14→18:14)
[2022-01-07] MEDS: DOCUSATE SODIUM 100MG CAPSULE PO SCH ×2 (08:15→21:00)
[2022-01-07] MEDS: CLOPIDOGREL 75 MG TAB PO SCH (08:15)
[2022-01-07] MEDS: TORSEMIDE 20 MG TAB PO SCH (08:15)
[2022-01-07] MEDS: CARVedilol 6.25 MG TAB PO SCH ×2 (08:17→21:29)
[2022-01-07 14:00] VITALS: BP 150/80
[2022-01-07] MEDS: **VANCO AFTER HD** MISC XX SCH (16:00)
[2022-01-07 21:00] VITALS: BP 142/78
[2022-01-08] MEDS: PIPERACILLIN/TAZOBACTAM SOD 2.25 GM in D5W MINI-BAG PLUS 50 ML IV SCH ×3 (00:03→16:26)
[2022-01-08] MEDS: TORSEMIDE 20 MG TAB PO SCH (05:14)
[2022-01-08] MEDS: CARVedilol 6.25 MG TAB PO SCH ×2 (05:14→20:41)
[2022-01-08] MEDS: CLOPIDOGREL 75 MG TAB PO SCH (05:15)
[2022-01-08] MEDS: ADVAIR HFA 230/21MCG INHALER INH SCH ×2 (05:57→20:40)
[2022-01-08] MEDS: ALBUTEROL SULFATE 2.5 MG/0.5 ML INH NEB SOLN NEB PRN ×2 (05:57→20:01)
[2022-01-08 06:00] VITALS: BP 152/77
[2022-01-08 06:37] LABS: HEMATOCRIT 35.1 % (42.0-52.0); HEMOGLOBIN 10.5 g/dl (13.5-17.5); MEAN CORPUSCULAR HEMOGLOBIN 28.8 pg (27.0-33.0); MEAN CORPUSCULAR HGB CONC 29.9 g/dl (32.0-36.5); MEAN CORPUSCULAR VOLUME 96.4 fl (80.0-96.0); PLATELET COUNT, AUTOMATED 230 10^3/uL (150-450); RED BLOOD COUNT 3.64 10^6/uL (4.30-6.10); WHITE BLOOD COUNT 7.4 10^3/uL (4.0-10.0)
[2022-01-08] MEDS ORDERED: SODIUM CHLORIDE 0.9% 1000ML IV PRN (07:05)
[2022-01-08 07:19] LABS: CALCIUM LEVEL 8.4 MG/DL (8.5-10.1); CREATININE FOR GFR 6.15 MG/DL (0.70-1.30); GLOMERULAR FILTRATION RATE 10.2 (>56); POTASSIUM SERUM 4.8 MEQ/L (3.5-5.1); VANCOMYCIN RANDOM 18.5 UG/ML
[2022-01-08] MEDS: HumaLOG INSULIN (NovoLOG) PER UNIT SC SCH ×4 (07:33→20:29)
[2022-01-08] MEDS: SUCROFERRIC OXYHYDROXIDE 500MG CHEW TAB (VELPHORO) PO SCH ×3 (07:33→17:41)
[2022-01-08] MEDS: DOCUSATE SODIUM 100MG CAPSULE PO SCH ×3 (09:00→20:41)
[2022-01-08] MEDS: LEVEMIR (INSULIN DETEMIR) 1 UNITS/0.01ML SC SCH ×2 (13:13→20:39)
[2022-01-08 14:30] VITALS: BP 144/76
[2022-01-08] MEDS: **VANCO AFTER HD** MISC XX SCH (17:30)
[2022-01-08] MEDS: APIXABAN 2.5 MG TAB (ELIQUIS) PO SCH (20:40)
[2022-01-08 22:00] VITALS: BP 143/75
[2022-01-09] MEDS: PIPERACILLIN/TAZOBACTAM SOD 2.25 GM in D5W MINI-BAG PLUS 50 ML IV SCH ×2 (00:39→07:59)
[2022-01-09 06:00] VITALS: BP 123/67
[2022-01-09 06:19] LABS: HEMATOCRIT 33.4 % (42.0-52.0); HEMOGLOBIN 9.7 g/dl (13.5-17.5); MEAN CORPUSCULAR HEMOGLOBIN 28.6 pg (27.0-33.0); MEAN CORPUSCULAR VOLUME 98.5 fl (80.0-96.0); PLATELET COUNT, AUTOMATED 251 10^3/uL (150-450); RED BLOOD COUNT 3.39 10^6/uL (4.30-6.10); WHITE BLOOD COUNT 7.3 10^3/uL (4.0-10.0)
[2022-01-09 06:36] LABS: CALCIUM LEVEL 9.1 MG/DL (8.5-10.1); CREATININE FOR GFR 5.08 MG/DL (0.70-1.30); GLOMERULAR FILTRATION RATE 12.7 (>56); POTASSIUM SERUM 4.4 MEQ/L (3.5-5.1)
[2022-01-09] MEDS: ADVAIR HFA 230/21MCG INHALER INH SCH ×2 (07:39→20:54)
[2022-01-09] MEDS: SUCROFERRIC OXYHYDROXIDE 500MG CHEW TAB (VELPHORO) PO SCH ×3 (08:00→17:44)
[2022-01-09] MEDS: TORSEMIDE 20 MG TAB PO SCH (08:00)
[2022-01-09] MEDS: HumaLOG INSULIN (NovoLOG) PER UNIT SC SCH ×4 (08:00→20:53)
[2022-01-09] MEDS: LEVEMIR (INSULIN DETEMIR) 1 UNITS/0.01ML SC SCH ×2 (08:00→20:53)
[2022-01-09] MEDS: DOCUSATE SODIUM 100MG CAPSULE PO SCH ×2 (08:01→20:54)
[2022-01-09] MEDS: APIXABAN 2.5 MG TAB (ELIQUIS) PO SCH ×2 (08:01→20:53)
[2022-01-09] MEDS: CLOPIDOGREL 75 MG TAB PO SCH (08:02)
[2022-01-09] MEDS: CARVedilol 6.25 MG TAB PO SCH ×2 (08:02→20:52)
[2022-01-09] MEDS ORDERED: DARBEPOETIN 100 MCG/0.5 ML *DIALYSIS* SYRINGE (J0882) IV SCH (09:00)
[2022-01-09 14:00] VITALS: BP 142/72
[2022-01-09] MEDS: **VANCO AFTER HD** MISC XX SCH (15:18)
[2022-01-09] MEDS: cefTRIAXone SOD 1 GM in D5W MINI-BAG PLUS 50 ML IV SCH (17:43)
[2022-01-09 22:00] VITALS: BP 139/67
[2022-01-10 05:55] LABS: HEMATOCRIT 31.4 % (42.0-52.0); HEMOGLOBIN 9.3 g/dl (13.5-17.5); MEAN CORPUSCULAR HEMOGLOBIN 29.6 pg (27.0-33.0); MEAN CORPUSCULAR HGB CONC 29.6 g/dl (32.0-36.5); PLATELET COUNT, AUTOMATED 243 10^3/uL (150-450); RED BLOOD COUNT 3.14 10^6/uL (4.30-6.10)
[2022-01-10 06:00] VITALS: BP 139/73
[2022-01-10 06:28] LABS: CALCIUM LEVEL 8.2 MG/DL (8.5-10.1); CREATININE FOR GFR 6.18 MG/DL (0.70-1.30); GLOMERULAR FILTRATION RATE 10.1 (>56); POTASSIUM SERUM 5.3 MEQ/L (3.5-5.1); VANCOMYCIN RANDOM 22.5 UG/ML
[2022-01-10] MEDS ORDERED: SODIUM CHLORIDE 0.9% 1000ML IV PRN (07:30)
[2022-01-10] MEDS: SUCROFERRIC OXYHYDROXIDE 500MG CHEW TAB (VELPHORO) PO SCH ×3 (07:43→18:22)
[2022-01-10] MEDS: CLOPIDOGREL 75 MG TAB PO SCH (07:44)
[2022-01-10] MEDS: APIXABAN 2.5 MG TAB (ELIQUIS) PO SCH ×2 (07:44→20:52)
[2022-01-10] MEDS: TORSEMIDE 20 MG TAB PO SCH (07:44)
[2022-01-10] MEDS: ADVAIR HFA 230/21MCG INHALER INH SCH ×2 (07:44→20:10)
[2022-01-10] MEDS: HumaLOG INSULIN (NovoLOG) PER UNIT SC SCH ×4 (07:45→20:30)
[2022-01-10] MEDS: LEVEMIR (INSULIN DETEMIR) 1 UNITS/0.01ML SC SCH ×2 (07:45→20:52)
[2022-01-10] MEDS: CARVedilol 6.25 MG TAB PO SCH ×2 (07:46→20:52)
[2022-01-10] MEDS: DOCUSATE SODIUM 100MG CAPSULE PO SCH ×2 (07:47→20:52)
[2022-01-10 14:00] VITALS: BP 121/64
[2022-01-10] MEDS ORDERED: VANCOMYCIN HCL 750 MG, VIAL MATE ADAPTER 1 EACH in NS 250 ML IV SCH (16:00)
[2022-01-10] MEDS: **VANCO AFTER HD** MISC XX SCH (17:23)
[2022-01-10] MEDS: cefTRIAXone SOD 1 GM in D5W MINI-BAG PLUS 50 ML IV SCH (19:34)
[2022-01-10 21:00] VITALS: BP 124/61
[2022-01-11 06:00] VITALS: BP 123/62
[2022-01-11 06:48] LABS: HEMATOCRIT 30.8 % (42.0-52.0); HEMOGLOBIN 9.4 g/dl (13.5-17.5); MEAN CORPUSCULAR HEMOGLOBIN 29.7 pg (27.0-33.0); MEAN CORPUSCULAR HGB CONC 30.5 g/dl (32.0-36.5); MEAN CORPUSCULAR VOLUME 97.5 fl (80.0-96.0); PLATELET COUNT, AUTOMATED 251 10^3/uL (150-450); RED BLOOD COUNT 3.16 10^6/uL (4.30-6.10)
[2022-01-11 07:08] LABS: CALCIUM LEVEL 8.4 MG/DL (8.5-10.1); CREATININE FOR GFR 5.33 MG/DL (0.70-1.30); POTASSIUM SERUM 4.7 MEQ/L (3.5-5.1)
[2022-01-11] MEDS: ADVAIR HFA 230/21MCG INHALER INH SCH ×2 (08:14→20:09)
[2022-01-11] MEDS: DOCUSATE SODIUM 100MG CAPSULE PO SCH ×2 (09:00→21:00)
[2022-01-11] MEDS: SUCROFERRIC OXYHYDROXIDE 500MG CHEW TAB (VELPHORO) PO SCH ×3 (09:36→17:30)
[2022-01-11] MEDS: TORSEMIDE 20 MG TAB PO SCH (09:37)
[2022-01-11] MEDS: APIXABAN 2.5 MG TAB (ELIQUIS) PO SCH ×2 (09:37→21:56)
[2022-01-11] MEDS: CLOPIDOGREL 75 MG TAB PO SCH (09:37)
[2022-01-11] MEDS: CARVedilol 6.25 MG TAB PO SCH ×2 (09:39→21:56)
[2022-01-11] MEDS: LEVEMIR (INSULIN DETEMIR) 1 UNITS/0.01ML SC SCH ×2 (09:40→21:56)
[2022-01-11] MEDS: HumaLOG INSULIN (NovoLOG) PER UNIT SC SCH ×4 (09:41→21:56)
[2022-01-11 14:00] VITALS: BP 126/65
[2022-01-11] MEDS ORDERED: LevoFLOXacin 750 MG TABLET PO ONE (14:35)
[2022-01-11 19:12] LABS: HEMOGLOBIN A1c 10.4 %
[2022-01-11] MEDS ORDERED: CEFDINIR 300 MG CAP (OMNICEF) PO SCH (21:00)
[2022-01-11] MEDS: DOXYCYCLINE HYCLATE 100MG TABLET PO SCH (21:56)
[2022-01-12] MEDS: LevoFLOXacin 250 MG TABLET PO SCH (05:35)
[2022-01-12 06:15] VITALS: BP 126/66
[2022-01-12] MEDS: DOCUSATE SODIUM 100MG CAPSULE PO SCH ×2 (06:34→21:00)
[2022-01-12 06:41] LABS: HEMATOCRIT 34.2 % (42.0-52.0); HEMOGLOBIN 10.1 g/dl (13.5-17.5); MEAN CORPUSCULAR HEMOGLOBIN 29.3 pg (27.0-33.0); MEAN CORPUSCULAR HGB CONC 29.5 g/dl (32.0-36.5); MEAN CORPUSCULAR VOLUME 99.1 fl (80.0-96.0); PLATELET COUNT, AUTOMATED 247 10^3/uL (150-450); RED BLOOD COUNT 3.45 10^6/uL (4.30-6.10); WHITE BLOOD COUNT 8.1 10^3/uL (4.0-10.0)
[2022-01-12] MEDS: SUCROFERRIC OXYHYDROXIDE 500MG CHEW TAB (VELPHORO) PO SCH ×4 (06:42→18:58)
[2022-01-12] MEDS: TORSEMIDE 20 MG TAB PO SCH (06:43)
[2022-01-12] MEDS: DOXYCYCLINE HYCLATE 100MG TABLET PO SCH ×2 (06:43→21:46)
[2022-01-12] MEDS: CARVedilol 6.25 MG TAB PO SCH ×2 (06:43→21:45)
[2022-01-12] MEDS: APIXABAN 2.5 MG TAB (ELIQUIS) PO SCH ×2 (06:43→21:46)
[2022-01-12] MEDS: CLOPIDOGREL 75 MG TAB PO SCH (06:43)
[2022-01-12] MEDS: HumaLOG INSULIN (NovoLOG) PER UNIT SC SCH ×4 (06:51→21:00)
[2022-01-12] MEDS: LEVEMIR (INSULIN DETEMIR) 1 UNITS/0.01ML SC SCH ×2 (06:51→21:45)
[2022-01-12] MEDS ORDERED: SODIUM CHLORIDE 0.9% 1000ML IV PRN (07:00)
[2022-01-12 07:16] LABS: CALCIUM LEVEL 8.6 MG/DL (8.5-10.1); CREATININE FOR GFR 6.28 MG/DL (0.70-1.30); GLOMERULAR FILTRATION RATE 9.9 (>56); POTASSIUM SERUM 5.7 MEQ/L (3.5-5.1)
[2022-01-12] MEDS: ADVAIR HFA 230/21MCG INHALER INH SCH ×2 (08:21→20:07)
[2022-01-12] MEDS ORDERED: PATIROMER SORBITEX CALCIUM 8.4 GM POWDER PACKET (VELTASSA) PO ONE (10:00)
[2022-01-12 15:45] VITALS: BP 128/67
[2022-01-12 22:00] VITALS: BP 146/55
[2022-01-13] MEDS: LevoFLOXacin 250 MG TABLET PO SCH (05:20)
[2022-01-13 06:00] VITALS: BP 139/78
[2022-01-13] MEDS: ADVAIR HFA 230/21MCG INHALER INH SCH (08:00)
[2022-01-13] MEDS: TORSEMIDE 20 MG TAB PO SCH (08:20)
[2022-01-13] MEDS: SUCROFERRIC OXYHYDROXIDE 500MG CHEW TAB (VELPHORO) PO SCH ×2 (08:20→12:15)
[2022-01-13] MEDS: HumaLOG INSULIN (NovoLOG) PER UNIT SC SCH ×2 (08:20→12:15)
[2022-01-13] MEDS: LEVEMIR (INSULIN DETEMIR) 1 UNITS/0.01ML SC SCH (08:20)
[2022-01-13 08:21] VITALS: BP 144/74
[2022-01-13] MEDS: CLOPIDOGREL 75 MG TAB PO SCH (08:21)
[2022-01-13] MEDS: CARVedilol 6.25 MG TAB PO SCH (08:21)
[2022-01-13] MEDS: DOXYCYCLINE HYCLATE 100MG TABLET PO SCH (08:21)
[2022-01-13] MEDS: APIXABAN 2.5 MG TAB (ELIQUIS) PO SCH (08:21)
[2022-01-13] MEDS: DOCUSATE SODIUM 100MG CAPSULE PO SCH (08:21)
[2022-01-13 09:27] LABS: HEMATOCRIT 31.9 % (42.0-52.0); HEMOGLOBIN 9.5 g/dl (13.5-17.5); MEAN CORPUSCULAR HEMOGLOBIN 29.2 pg (27.0-33.0); MEAN CORPUSCULAR HGB CONC 29.8 g/dl (32.0-36.5); MEAN CORPUSCULAR VOLUME 98.2 fl (80.0-96.0); PLATELET COUNT, AUTOMATED 247 10^3/uL (150-450); RED BLOOD COUNT 3.25 10^6/uL (4.30-6.10)
[2022-01-13 09:47] LABS: CALCIUM LEVEL 8.6 MG/DL (8.5-10.1); CREATININE FOR GFR 5.5 MG/DL (0.70-1.30); GLOMERULAR FILTRATION RATE 11.6 (>56); MAGNESIUM LEVEL 2.8 MG/DL (1.8-2.4); POTASSIUM SERUM 5.4 MEQ/L (3.5-5.1)
[2022-01-13 10:00] LABS: LYMPHOCYTES 10 % (16-44); METAMYELOCYTES 1 % (0-0); MONOCYTES 15 % (0-5); MYELOCYTES 3 % (0-0); NEUTROPHILS 68 % (28-66)
[2022-01-13 10:01] LABS: PLATELET ESTIMATE NORMAL (NORMAL)
[2022-01-13 10:02] LABS: POLYCHROMASIA 1+
[2022-01-13] MEDS ORDERED: VENTAER INH (12:52)
[2022-01-13] MEDS ORDERED: DOXY100T PO (12:52)
[2022-01-13] MEDS ORDERED: LEVO250T3 PO (12:52)
[2022-01-13 14:00] VITALS: BP 146/73
[2022-01-13] MEDS ORDERED: PATIROMER SORBITEX CALCIUM 8.4 GM POWDER PACKET (VELTASSA) PO ONE (16:00)
== END 2022-01-13 16:56 | disposition home health service (06) | DRG 602 ==
LOC: M ED 18:15 → EEVIPCON 01-06 00:49 → M ED INP 01-06 00:49 → ENRESERV 01-06 04:53 → M MSPAV 01-06 06:40
PROVIDERS: ADMIT Family Medicine; ATTEND Family Medicine
PROC: 0HBMXZZ Excision of Right Foot Skin, External Approach (ICD-10-PCS; principal; 2022-01-10)
DX: L03.115 Cellulitis of right lower limb (principal); N18.6 End stage renal disease; I48.92 Unspecified atrial flutter; L97.919 Non-pressure chronic ulcer of unspecified part of right lower leg with unspecified severity; L97.929 Non-pressure chronic ulcer of unspecified part of left lower leg with unspecified severity; E11.22 Type 2 diabetes mellitus with diabetic chronic kidney disease; Z99.2 Dependence on renal dialysis; I50.9 Heart failure, unspecified; I25.10 Atherosclerotic heart disease of native coronary artery without angina pectoris; J45.909 Unspecified asthma, uncomplicated; Z89.412 Acquired absence of left great toe; Z79.01 Long term (current) use of anticoagulants; Z79.4 Long term (current) use of insulin; Z79.899 Other long term (current) drug therapy; Z88.6 Allergy status to analgesic agent; Z91.018 Allergy to other foods; Z91.048 Other nonmedicinal substance allergy status; E78.00 Pure hypercholesterolemia, unspecified; Z90.49 Acquired absence of other specified parts of digestive tract; E87.6 Hypokalemia; D63.1 Anemia in chronic kidney disease; E11.42 Type 2 diabetes mellitus with diabetic polyneuropathy; I89.0 Lymphedema, not elsewhere classified

== ENCOUNTER 2022-02-18 15:01 | Inpatient (IN) | payer MEDICARE, MEDICAID ==
[~2022-02-18] VITALS: Ht 190.5 cm; Wt 116.0 kg
[~2022-02-18 15:01] MED LIST changes: +DOXY100T PO; +LEVO250T3 PO
[2022-02-18] MEDS ORDERED: VANCOMYCIN HCL 1,000 MG, VIAL MATE ADAPTER 1 EACH in NS 250 ML IV ONE (15:25)
[2022-02-18] MEDS ORDERED: VENTAER INH (16:16)
[2022-02-18] MEDS ORDERED: HOME MED LIST COMPLETE! XX SCH (16:20)
[2022-02-18 16:57] LABS: RSV AMPLIFICATION NEGATIVE (NEGATIVE)
[2022-02-18] MEDS ORDERED: ONDANSETRON 4MG/2ML VIAL IV STA (17:59)
[2022-02-18] MEDS ORDERED: ONDANSETRON 4MG/2ML VIAL As Ordered ONE (18:00)
[2022-02-18 18:18] LABS: BASO % 0.1 % (0.0-1.0); HEMATOCRIT 34.3 % (42.0-52.0); HEMOGLOBIN 10.6 g/dl (13.5-17.5); LYMPH # 0.8 10^3/uL (1.5-5.0); LYMPH % 6.1 % (24.0-44.0); MEAN CORPUSCULAR HEMOGLOBIN 28.9 pg (27.0-33.0); MEAN CORPUSCULAR HGB CONC 30.9 g/dl (32.0-36.5); MEAN CORPUSCULAR VOLUME 93.5 fl (80.0-96.0); MONO # 0.9 10^3/uL (0.0-0.8); MONO % 7.2 % (2.0-8.0); NEUTROPHILS # 10.6 10^3/uL (1.5-8.5); NEUTROPHILS % 85.5 % (36.0-66.0); PLATELET COUNT, AUTOMATED 196 10^3/uL (150-450); RED BLOOD COUNT 3.67 10^6/uL (4.30-6.10); WHITE BLOOD COUNT 12.4 10^3/uL (4.0-10.0)
[2022-02-18 18:35] LABS: ERYTHROCYTE SEDIMENTATION RATE 84 mm/hr (0-20)
[2022-02-18 18:45] LABS: INR 1.56; PROTHROMBIN TIME 19.1 SECONDS (12.7-14.5)
[2022-02-18 18:46] LABS: PARTIAL THROMBOPLASTIN TIME 40.8 SECONDS (25.9-37.0)
[2022-02-18 18:53] LABS: ALBUMIN 2.3 GM/DL (3.2-5.2); BILIRUBIN,DIRECT 0.8 MG/DL (0.0-0.2); BILIRUBIN,TOTAL 1.3 MG/DL (0.2-1.0); C REACTIVE PROTEIN QUANTITATIV 31.6 MG/DL (0.00-0.30); CALCIUM LEVEL 8.9 MG/DL (8.5-10.1); CREATININE FOR GFR 7.83 MG/DL (0.70-1.30); GLOMERULAR FILTRATION RATE 7.7 (>56); POTASSIUM SERUM 4.8 MEQ/L (3.5-5.1); THYROID STIMULATING HORMONE 3.89 uIU/ML (0.358-3.740); TOTAL PROTEIN 7.2 GM/DL (6.4-8.2)
[2022-02-18] MEDS ORDERED: GLUCOSE 4GM CHEW TABLET PO PRN (19:45)
[2022-02-18] MEDS ORDERED: ADVAIR HFA 230/21MCG INHALER INH PRN (19:45)
[2022-02-18] MEDS ORDERED: ALBUTEROL 90 MCG/ACT 8GM HFA INHALER INH PRN (19:45)
[2022-02-18] MEDS ORDERED: GLUCAGON INJ 1MG VIAL SC PRN (19:45)
[2022-02-18] MEDS ORDERED: DEXTROSE 50% 50 ML SYRINGE IV PRN (19:45)
[2022-02-18] MEDS ORDERED: HumaLOG INSULIN (NovoLOG) PER UNIT SC SCH (21:00)
[2022-02-18] MEDS: CARVedilol 6.25 MG TAB PO SCH (21:42)
[2022-02-18] MEDS: LEVEMIR (INSULIN DETEMIR) 1 UNITS/0.01ML SC SCH (21:45)
[2022-02-19] MEDS ORDERED: VANCOMYCIN HCL 500 MG in D5W MINI-BAG PLUS 100 ML IV ONE (02:00)
[2022-02-19] MEDS: HumaLOG INSULIN (NovoLOG) PER UNIT SC SCH ×4 (06:12→17:30)
[2022-02-19] MEDS ORDERED: SODIUM CHLORIDE 0.9% 1000ML IV PRN (06:50)
[2022-02-19] MEDS ORDERED: DARBEPOETIN 100 MCG/0.5 ML *DIALYSIS* SYRINGE (J0882) IV SCH (06:50)
[2022-02-19 07:30] LABS: BASO % 0.2 % (0.0-1.0); EOS % 0.4 % (0.0-3.0); HEMATOCRIT 29.8 % (42.0-52.0); HEMOGLOBIN 9.3 g/dl (13.5-17.5); LYMPH % 10.3 % (24.0-44.0); MEAN CORPUSCULAR HEMOGLOBIN 29.4 pg (27.0-33.0); MEAN CORPUSCULAR HGB CONC 31.2 g/dl (32.0-36.5); MEAN CORPUSCULAR VOLUME 94.3 fl (80.0-96.0); MONO # 1.3 10^3/uL (0.0-0.8); MONO % 13.3 % (2.0-8.0); NEUTROPHILS % 74.5 % (36.0-66.0); PLATELET COUNT, AUTOMATED 189 10^3/uL (150-450); RED BLOOD COUNT 3.16 10^6/uL (4.30-6.10); WHITE BLOOD COUNT 9.4 10^3/uL (4.0-10.0)
[2022-02-19 07:40] LABS: INR 1.37; PROTHROMBIN TIME 17.3 SECONDS (12.7-14.5)
[2022-02-19 07:41] LABS: PARTIAL THROMBOPLASTIN TIME 40.7 SECONDS (25.9-37.0)
[2022-02-19 07:51] LABS: HEMOGLOBIN A1c 10.2 %
[2022-02-19 08:03] LABS: ACETAMINOPHEN LEVEL < 2.0 UG/ML (10.0-30.0); LIPASE 32 U/L (73-393)
[2022-02-19 08:08] LABS: ALBUMIN 2.1 GM/DL (3.2-5.2); CALCIUM LEVEL 8.9 MG/DL (8.5-10.1); CREATININE FOR GFR 8.19 MG/DL (0.70-1.30); GLOMERULAR FILTRATION RATE 7.3 (>56); MAGNESIUM LEVEL 2.5 MG/DL (1.8-2.4); PHOSPHORUS LEVEL 6.2 MG/DL (2.5-4.9); POTASSIUM SERUM 4.2 MEQ/L (3.5-5.1); TOTAL PROTEIN 6.6 GM/DL (6.4-8.2)
[2022-02-19 08:36] LABS: HEPATITIS B SURFACE ANTIGEN NEGATIVE (NEGATIVE)
[2022-02-19 09:03] LABS: HEPATITIS B CORE ANTIBODY IGM NEGATIVE (NEGATIVE); HEPATITIS C VIRUS ABY INDEX 0.2 INDEX (<0.8)
[2022-02-19] MEDS ORDERED: LIDOCAINE 2% 100MG/5ML SDV (FOR ANES.) As Ordered ONE (12:15)
[2022-02-19] MEDS ORDERED: propofoL 200 MG/20 ML VIAL As Ordered ONE ×2 (12:15→13:30)
[2022-02-19] MEDS ORDERED: ONDANSETRON 4MG/2ML VIAL As Ordered ONE (12:16)
[2022-02-19] MEDS ORDERED: fentaNYL 100 MCG/2 ML INJECTION As Ordered ONE (12:16)
[2022-02-19] MEDS ORDERED: MIDAZOLAM INJ 2MG/2ML VIAL (J2250 PER 1MG) As Ordered ONE (12:16)
[2022-02-19] MEDS ORDERED: BUPIVACAINE HCL 0.5% 10ML VIAL As Ordered ONE (12:21)
[2022-02-19] MEDS ORDERED: LIDOCAINE 1% MDV 20ML VIAL As Ordered ONE (12:21)
[2022-02-19] MEDS ORDERED: ALBUTEROL 6.7GM INHALER **FOR ANES. CART/OMNICELL ONLY As Ordered ONE (12:58)
[2022-02-19] MEDS ORDERED: VANCOMYCIN HCL 750 MG, VIAL MATE ADAPTER 1 EACH in NS 250 ML IV SCH (14:00)
[2022-02-19] MEDS ORDERED: NS 1,000 ML IV SCH (14:25)
[2022-02-19] MEDS ORDERED: ONDANSETRON 4MG/2ML VIAL IV PRN (14:25)
[2022-02-19 14:56] VITALS: BP 114/61
[2022-02-19] MEDS: SUCROFERRIC OXYHYDROXIDE 500MG CHEW TAB (VELPHORO) PO SCH ×3 (16:33→17:57)
[2022-02-19] MEDS: LEVEMIR (INSULIN DETEMIR) 1 UNITS/0.01ML SC SCH ×2 (16:34→21:36)
[2022-02-19] MEDS: PIPERACILLIN/TAZOBACTAM SOD 2.25 GM in D5W MINI-BAG PLUS 50 ML IV SCH ×4 (16:34→19:39)
[2022-02-19] MEDS: CARVedilol 6.25 MG TAB PO SCH ×2 (16:34→21:39)
[2022-02-19] MEDS: TORSEMIDE 20 MG TAB PO SCH (16:36)
[2022-02-19 18:00] VITALS: BP 113/55
[2022-02-19] MEDS: **VANCO AFTER HD** MISC XX SCH (18:04)
[2022-02-19] MEDS ORDERED: HumaLOG INSULIN (NovoLOG) PER UNIT SC SCH (21:00)
[2022-02-20] MEDS: PIPERACILLIN/TAZOBACTAM SOD 2.25 GM in D5W MINI-BAG PLUS 50 ML IV SCH ×3 (00:15→16:15)
[2022-02-20 05:57] VITALS: BP 98/46
[2022-02-20 06:19] LABS: BASO % 0.3 % (0.0-1.0); EOS % 0.4 % (0.0-3.0); HEMATOCRIT 28.9 % (42.0-52.0); HEMOGLOBIN 8.9 g/dl (13.5-17.5); LYMPH # 1.2 10^3/uL (1.5-5.0); MEAN CORPUSCULAR HEMOGLOBIN 29.5 pg (27.0-33.0); MEAN CORPUSCULAR HGB CONC 30.8 g/dl (32.0-36.5); MEAN CORPUSCULAR VOLUME 95.7 fl (80.0-96.0); MONO # 1.2 10^3/uL (0.0-0.8); NEUTROPHILS # 5.3 10^3/uL (1.5-8.5); NEUTROPHILS % 67.6 % (36.0-66.0); PLATELET COUNT, AUTOMATED 156 10^3/uL (150-450); RED BLOOD COUNT 3.02 10^6/uL (4.30-6.10); WHITE BLOOD COUNT 7.8 10^3/uL (4.0-10.0)
[2022-02-20 06:50] LABS: ALBUMIN 1.8 GM/DL (3.2-5.2); CALCIUM LEVEL 8.1 MG/DL (8.5-10.1); CREATININE FOR GFR 5.79 MG/DL (0.70-1.30); GLOMERULAR FILTRATION RATE 10.9 (>56); MAGNESIUM LEVEL 2.4 MG/DL (1.8-2.4); POTASSIUM SERUM 4.1 MEQ/L (3.5-5.1); TOTAL PROTEIN 6.1 GM/DL (6.4-8.2); VANCOMYCIN RANDOM 19.9 UG/ML
[2022-02-20] MEDS: HumaLOG INSULIN (NovoLOG) PER UNIT SC SCH ×2 (07:30→12:00)
[2022-02-20] MEDS: SUCROFERRIC OXYHYDROXIDE 500MG CHEW TAB (VELPHORO) PO SCH ×2 (08:00→12:18)
[2022-02-20] MEDS: TORSEMIDE 20 MG TAB PO SCH (08:30)
[2022-02-20] MEDS: LEVEMIR (INSULIN DETEMIR) 1 UNITS/0.01ML SC SCH ×2 (08:31→09:00)
[2022-02-20 08:33] VITALS: BP 113/66
[2022-02-20] MEDS: CARVedilol 6.25 MG TAB PO SCH (08:33)
[2022-02-20] MEDS ORDERED: CLOPIDOGREL 75 MG TAB PO SCH (09:00)
[2022-02-20] MEDS ORDERED: APIXABAN 2.5 MG TAB (ELIQUIS) PO SCH (09:00)
[2022-02-20] MEDS ORDERED: ZOSY1SOL4 IV (11:38)
[2022-02-20] MEDS ORDERED: VANC1PIG IV (11:40)
[2022-02-20] MEDS: **VANCO AFTER HD** MISC XX SCH (15:54)
== END 2022-02-20 16:19 | DRG 853 ==
LOC: M ED 15:01 → M ED INP 19:42 → M MSPAV 02-19 14:56
PROVIDERS: ADMIT Internal Medicine; ATTEND Internal Medicine
PROC: 5A1D70Z Performance of Urinary Filtration, Intermittent, Less than 6 Hours Per Day (ICD-10-PCS; 2022-02-19)
PROC: 0QBL0ZZ Excision of Right Tarsal, Open Approach (ICD-10-PCS; principal; 2022-02-19 12:00)
DX: A41.9 Sepsis, unspecified organism (principal); N18.6 End stage renal disease; E87.2 Acidosis; I48.92 Unspecified atrial flutter; I13.2 Hypertensive heart and chronic kidney disease with heart failure and with stage 5 chronic kidney disease, or end stage renal disease; L03.115 Cellulitis of right lower limb; M86.171 Other acute osteomyelitis, right ankle and foot; L97.419 Non-pressure chronic ulcer of right heel and midfoot with unspecified severity; I50.32 Chronic diastolic (congestive) heart failure; Z99.2 Dependence on renal dialysis; E78.5 Hyperlipidemia, unspecified; E11.622 Type 2 diabetes mellitus with other skin ulcer; D72.829 Elevated white blood cell count, unspecified; Z79.01 Long term (current) use of anticoagulants; Z79.4 Long term (current) use of insulin; Z79.899 Other long term (current) drug therapy; Z88.6 Allergy status to analgesic agent; Z91.018 Allergy to other foods; Z91.048 Other nonmedicinal substance allergy status; I89.0 Lymphedema, not elsewhere classified; G47.00 Insomnia, unspecified; I08.0 Rheumatic disorders of both mitral and aortic valves; J45.909 Unspecified asthma, uncomplicated; F32.A Depression, unspecified; F41.9 Anxiety disorder, unspecified; D63.1 Anemia in chronic kidney disease; Z90.49 Acquired absence of other specified parts of digestive tract; Z20.822 Contact with and (suspected) exposure to COVID-19; E11.69 Type 2 diabetes mellitus with other specified complication; R74.01 Elevation of levels of liver transaminase levels; E11.621 Type 2 diabetes mellitus with foot ulcer; E11.22 Type 2 diabetes mellitus with diabetic chronic kidney disease; I25.10 Atherosclerotic heart disease of native coronary artery without angina pectoris; I25.5 Ischemic cardiomyopathy; I25.2 Old myocardial infarction; Z91.14 Patient's other noncompliance with medication regimen; I73.9 Peripheral vascular disease, unspecified; E11.42 Type 2 diabetes mellitus with diabetic polyneuropathy

== ENCOUNTER 2022-02-20 12:47 | Inpatient (IN) | payer MEDICARE, MEDICAID ==
[~2022-02-20] VITALS: Ht 190.5 cm; Wt 117.2 kg
[~2022-02-20 12:47] MED LIST changes: +VANC1PIG IV; +ZOSY1SOL4 IV
[2022-02-20] MEDS ORDERED: DEXTROSE 50% 50 ML SYRINGE IV PRN (13:45)
[2022-02-20] MEDS ORDERED: GLUCAGON INJ 1MG VIAL SC PRN (13:45)
[2022-02-20] MEDS ORDERED: GLUCOSE 4GM CHEW TABLET PO PRN (13:45)
[2022-02-20] MEDS ORDERED: BISACODYL 10 MG SUPP PR PRN (13:45)
[2022-02-20 17:24] VITALS: BP 116/65
[2022-02-20] MEDS: COMBIVENT RESPIMAT 100-20MCG INHALER 4GM INH SCH (17:45)
[2022-02-20] MEDS: ADVAIR HFA 230/21MCG INHALER INH SCH (17:45)
[2022-02-20] MEDS: SUCROFERRIC OXYHYDROXIDE 500MG CHEW TAB (VELPHORO) PO SCH (18:42)
[2022-02-20] MEDS: HumaLOG INSULIN (NovoLOG) PER UNIT SC SCH ×2 (18:43→22:44)
[2022-02-20 20:00] VITALS: BP 113/58
[2022-02-20] MEDS ORDERED: SENNA 8.6 MG TAB (SENOKOT) PO SCH (21:00)
[2022-02-20] MEDS ORDERED: DOCUSATE SODIUM 100MG CAPSULE PO SCH (21:00)
[2022-02-20] MEDS: LEVEMIR (INSULIN DETEMIR) 1 UNITS/0.01ML SC SCH (22:44)
[2022-02-20] MEDS: APIXABAN 2.5 MG TAB (ELIQUIS) PO SCH (22:46)
[2022-02-20] MEDS: CARVedilol 6.25 MG TAB PO SCH (22:46)
[2022-02-20] MEDS: LACTOBACILLUS ACIDOPHILUS CAP (BACID) PO SCH (22:46)
[2022-02-20] MEDS: REMEDY PHYTOPLEX Z-GUARD PASTE 113GM TUBE (FROM STOREROOM PRODUCT) TOP SCH (22:48)
[2022-02-21] MEDS: PIPERACILLIN/TAZOBACTAM SOD 2.25 GM in D5W MINI-BAG PLUS 50 ML IV SCH ×2 (00:31→09:14)
[2022-02-21 06:00] VITALS: BP 111/64
[2022-02-21] MEDS: ADVAIR HFA 230/21MCG INHALER INH SCH ×2 (07:34→19:39)
[2022-02-21] MEDS: COMBIVENT RESPIMAT 100-20MCG INHALER 4GM INH SCH ×3 (07:35→19:39)
[2022-02-21] MEDS ORDERED: SODIUM CHLORIDE 0.9% 1000ML IV PRN (07:35)
[2022-02-21 08:45] VITALS: BP 111/64
[2022-02-21] MEDS ORDERED: HOME MED LIST COMPLETE! XX SCH (09:15)
[2022-02-21] MEDS: HumaLOG INSULIN (NovoLOG) PER UNIT SC SCH ×4 (09:15→20:48)
[2022-02-21] MEDS: SUCROFERRIC OXYHYDROXIDE 500MG CHEW TAB (VELPHORO) PO SCH ×3 (09:16→17:23)
[2022-02-21] MEDS: LEVEMIR (INSULIN DETEMIR) 1 UNITS/0.01ML SC SCH ×2 (09:16→20:48)
[2022-02-21] MEDS: PANTOPRAZOLE 40MG TAB (PROTONIX) PO SCH (09:17)
[2022-02-21] MEDS: CLOPIDOGREL 75 MG TAB PO SCH (09:17)
[2022-02-21] MEDS: CARVedilol 6.25 MG TAB PO SCH ×2 (09:17→21:27)
[2022-02-21] MEDS: TORSEMIDE 20 MG TAB PO SCH (09:17)
[2022-02-21] MEDS: APIXABAN 2.5 MG TAB (ELIQUIS) PO SCH ×2 (09:17→21:26)
[2022-02-21] MEDS: LACTOBACILLUS ACIDOPHILUS CAP (BACID) PO SCH ×3 (09:18→21:26)
[2022-02-21] MEDS: REMEDY PHYTOPLEX Z-GUARD PASTE 113GM TUBE (FROM STOREROOM PRODUCT) TOP SCH ×3 (09:18→21:27)
[2022-02-21 09:45] LABS: CLOSTRIDIUM DIFFICILE PCR NEGATIVE (NEGATIVE)
[2022-02-21] MEDS ORDERED: LOPERAMIDE 2 MG CAPLET PO ONE (11:45)
[2022-02-21] MEDS ORDERED: LOPERAMIDE 2 MG CAPLET PO PRN (12:00)
[2022-02-21 13:14] LABS: BASO # 0.1 10^3/uL (0.0-0.2); BASO % 0.5 % (0.0-1.0); EOS % 0.3 % (0.0-3.0); HEMATOCRIT 30.1 % (42.0-52.0); HEMOGLOBIN 9.2 g/dl (13.5-17.5); LYMPH # 1.3 10^3/uL (1.5-5.0); MEAN CORPUSCULAR HEMOGLOBIN 29.2 pg (27.0-33.0); MEAN CORPUSCULAR HGB CONC 30.6 g/dl (32.0-36.5); MEAN CORPUSCULAR VOLUME 95.6 fl (80.0-96.0); MONO # 0.9 10^3/uL (0.0-0.8); MONO % 9.1 % (2.0-8.0); NEUTROPHILS # 7.1 10^3/uL (1.5-8.5); NEUTROPHILS % 72.6 % (36.0-66.0); PLATELET COUNT, AUTOMATED 170 10^3/uL (150-450); RED BLOOD COUNT 3.15 10^6/uL (4.30-6.10); WHITE BLOOD COUNT 9.8 10^3/uL (4.0-10.0)
[2022-02-21 13:42] LABS: ALBUMIN 1.9 GM/DL (3.2-5.2); BILIRUBIN,DIRECT 0.5 MG/DL (0.0-0.2); BILIRUBIN,TOTAL 0.8 MG/DL (0.2-1.0); CALCIUM LEVEL 8.2 MG/DL (8.5-10.1); CREATININE FOR GFR 7.05 MG/DL (0.70-1.30); GLOMERULAR FILTRATION RATE 8.7 (>56); POTASSIUM SERUM 4.3 MEQ/L (3.5-5.1); TOTAL PROTEIN 6.8 GM/DL (6.4-8.2)
[2022-02-21 14:00] VITALS: BP 110/77
[2022-02-21 20:00] VITALS: BP 127/64
[2022-02-22] MEDS: REMEDY PHYTOPLEX Z-GUARD PASTE 113GM TUBE (FROM STOREROOM PRODUCT) TOP SCH ×6 (01:07→21:20)
[2022-02-22 06:00] VITALS: BP 114/64
[2022-02-22 07:21] LABS: VANCOMYCIN RANDOM 15.1 UG/ML
[2022-02-22] MEDS: COMBIVENT RESPIMAT 100-20MCG INHALER 4GM INH SCH ×3 (07:21→17:41)
[2022-02-22] MEDS: ADVAIR HFA 230/21MCG INHALER INH SCH ×2 (07:21→17:40)
[2022-02-22 08:28] VITALS: BP 114/64
[2022-02-22] MEDS: SUCROFERRIC OXYHYDROXIDE 500MG CHEW TAB (VELPHORO) PO SCH ×3 (08:33→17:22)
[2022-02-22] MEDS: PANTOPRAZOLE 40MG TAB (PROTONIX) PO SCH (08:33)
[2022-02-22] MEDS: TORSEMIDE 20 MG TAB PO SCH (08:33)
[2022-02-22] MEDS: APIXABAN 2.5 MG TAB (ELIQUIS) PO SCH ×2 (08:34→21:18)
[2022-02-22] MEDS: LACTOBACILLUS ACIDOPHILUS CAP (BACID) PO SCH ×3 (08:34→21:18)
[2022-02-22] MEDS: CLOPIDOGREL 75 MG TAB PO SCH (08:34)
[2022-02-22] MEDS: CARVedilol 6.25 MG TAB PO SCH ×2 (08:36→21:18)
[2022-02-22] MEDS: HumaLOG INSULIN (NovoLOG) PER UNIT SC SCH ×4 (08:37→21:00)
[2022-02-22] MEDS: LEVEMIR (INSULIN DETEMIR) 1 UNITS/0.01ML SC SCH ×2 (08:38→21:19)
[2022-02-22] MEDS ORDERED: VANCOMYCIN HCL 750 MG, VIAL MATE ADAPTER 1 EACH in NS 250 ML IV ONE (08:50)
[2022-02-22] MEDS ORDERED: hydrOXYzine 25 MG TAB PO ONE (10:30)
[2022-02-22] MEDS: LACTIC ACID 12% LOTION 225 GM BTL TOP SCH (11:59)
[2022-02-22] MEDS: ACETAMINOPHEN TAB 650MG DOSE (2X325MG) PO PRN (13:28)
[2022-02-22 14:00] VITALS: BP 145/72
[2022-02-22] MEDS ORDERED: VANCOMYCIN HCL 750 MG, VIAL MATE ADAPTER 1 EACH in NS 250 ML IV SCH (14:00)
[2022-02-22] MEDS: **VANCO AFTER HD** MISC XX SCH (15:41)
[2022-02-22 20:00] VITALS: BP 141/80
[2022-02-22] MEDS: hydrOXYzine 25 MG TAB PO SCH (21:18)
[2022-02-23] MEDS: REMEDY PHYTOPLEX Z-GUARD PASTE 113GM TUBE (FROM STOREROOM PRODUCT) TOP SCH ×6 (01:00→21:08)
[2022-02-23 06:00] VITALS: BP 160/72
[2022-02-23] MEDS ORDERED: SODIUM CHLORIDE 0.9% 1000ML IV PRN (07:05)
[2022-02-23] MEDS: ADVAIR HFA 230/21MCG INHALER INH SCH ×2 (07:21→19:32)
[2022-02-23] MEDS: COMBIVENT RESPIMAT 100-20MCG INHALER 4GM INH SCH ×3 (07:21→19:33)
[2022-02-23] MEDS: TORSEMIDE 20 MG TAB PO SCH (08:28)
[2022-02-23] MEDS: SUCROFERRIC OXYHYDROXIDE 500MG CHEW TAB (VELPHORO) PO SCH ×3 (08:28→17:25)
[2022-02-23] MEDS: CLOPIDOGREL 75 MG TAB PO SCH (08:28)
[2022-02-23] MEDS: PANTOPRAZOLE 40MG TAB (PROTONIX) PO SCH (08:28)
[2022-02-23] MEDS: CARVedilol 6.25 MG TAB PO SCH ×2 (08:28→21:07)
[2022-02-23] MEDS: LACTOBACILLUS ACIDOPHILUS CAP (BACID) PO SCH ×3 (08:28→21:07)
[2022-02-23] MEDS: ACETAMINOPHEN TAB 650MG DOSE (2X325MG) PO PRN (08:29)
[2022-02-23] MEDS: APIXABAN 2.5 MG TAB (ELIQUIS) PO SCH ×2 (08:29→21:07)
[2022-02-23] MEDS: HumaLOG INSULIN (NovoLOG) PER UNIT SC SCH ×4 (08:30→21:00)
[2022-02-23] MEDS: LEVEMIR (INSULIN DETEMIR) 1 UNITS/0.01ML SC SCH ×2 (08:30→21:08)
[2022-02-23] MEDS: LACTIC ACID 12% LOTION 225 GM BTL TOP SCH (08:31)
[2022-02-23 10:50] LABS: HEMOGLOBIN 10.1 g/dl (13.5-17.5); MEAN CORPUSCULAR HEMOGLOBIN 29.7 pg (27.0-33.0); MEAN CORPUSCULAR HGB CONC 30.6 g/dl (32.0-36.5); MEAN CORPUSCULAR VOLUME 97.1 fl (80.0-96.0); PLATELET COUNT, AUTOMATED 221 10^3/uL (150-450)
[2022-02-23 11:11] LABS: CALCIUM LEVEL 8.6 MG/DL (8.5-10.1); CREATININE FOR GFR 6.68 MG/DL (0.70-1.30); GLOMERULAR FILTRATION RATE 9.3 (>56); POTASSIUM SERUM 4.2 MEQ/L (3.5-5.1)
[2022-02-23 11:39] LABS: ATYPICAL LYMPH 1 % (0-5); EOSINOPHILS 1 % (0-3); LYMPHOCYTES 16 % (16-44); METAMYELOCYTES 2 % (0-0); MONOCYTES 5 % (0-5); MYELOCYTES 1 % (0-0); NEUTROPHILS 68 % (28-66); PLATELET ESTIMATE NORMAL (NORMAL)
[2022-02-23 11:40] LABS: ANISOCYTOSIS 1+; HYPERSEGMENTED POLYS 1+
[2022-02-23 14:00] VITALS: BP 131/68
[2022-02-23] MEDS: **VANCO AFTER HD** MISC XX SCH (17:25)
[2022-02-23 19:45] VITALS: BP_SYST 132; BP_SYST 179; BP_DIAS 82; BP_DIAS 84
[2022-02-23] MEDS: hydrOXYzine 25 MG TAB PO SCH (21:07)
[2022-02-24] MEDS: REMEDY PHYTOPLEX Z-GUARD PASTE 113GM TUBE (FROM STOREROOM PRODUCT) TOP SCH ×6 (01:00→21:50)
[2022-02-24 05:18] VITALS: BP 147/76
[2022-02-24] MEDS: ADVAIR HFA 230/21MCG INHALER INH SCH ×2 (07:18→19:28)
[2022-02-24] MEDS: COMBIVENT RESPIMAT 100-20MCG INHALER 4GM INH SCH ×3 (07:18→19:29)
[2022-02-24] MEDS: LEVEMIR (INSULIN DETEMIR) 1 UNITS/0.01ML SC SCH ×2 (07:52→21:49)
[2022-02-24] MEDS: SUCROFERRIC OXYHYDROXIDE 500MG CHEW TAB (VELPHORO) PO SCH ×3 (07:53→17:58)
[2022-02-24] MEDS: HumaLOG INSULIN (NovoLOG) PER UNIT SC SCH ×4 (07:53→21:00)
[2022-02-24] MEDS: APIXABAN 2.5 MG TAB (ELIQUIS) PO SCH ×2 (07:54→21:48)
[2022-02-24] MEDS: TORSEMIDE 20 MG TAB PO SCH (07:54)
[2022-02-24] MEDS: CLOPIDOGREL 75 MG TAB PO SCH (07:54)
[2022-02-24] MEDS: LACTOBACILLUS ACIDOPHILUS CAP (BACID) PO SCH ×3 (07:54→21:48)
[2022-02-24] MEDS: PANTOPRAZOLE 40MG TAB (PROTONIX) PO SCH (07:54)
[2022-02-24] MEDS: CARVedilol 6.25 MG TAB PO SCH ×2 (07:55→21:48)
[2022-02-24] MEDS: LACTIC ACID 12% LOTION 225 GM BTL TOP SCH (07:57)
[2022-02-24 14:00] VITALS: BP 152/74
[2022-02-24] MEDS: **VANCO AFTER HD** MISC XX SCH (16:00)
[2022-02-24 20:00] VITALS: BP 171/83
[2022-02-24] MEDS: hydrOXYzine 25 MG TAB PO SCH (21:48)
[2022-02-25] MEDS: REMEDY PHYTOPLEX Z-GUARD PASTE 113GM TUBE (FROM STOREROOM PRODUCT) TOP SCH ×7 (05:12→20:30)
[2022-02-25 05:27] VITALS: BP 144/65
[2022-02-25] MEDS: ADVAIR HFA 230/21MCG INHALER INH SCH ×2 (07:12→19:20)
[2022-02-25] MEDS: COMBIVENT RESPIMAT 100-20MCG INHALER 4GM INH SCH ×3 (07:12→19:20)
[2022-02-25] MEDS: HumaLOG INSULIN (NovoLOG) PER UNIT SC SCH ×4 (08:27→20:28)
[2022-02-25] MEDS: CLOPIDOGREL 75 MG TAB PO SCH (08:28)
[2022-02-25] MEDS: SUCROFERRIC OXYHYDROXIDE 500MG CHEW TAB (VELPHORO) PO SCH ×3 (08:28→17:16)
[2022-02-25] MEDS: LACTOBACILLUS ACIDOPHILUS CAP (BACID) PO SCH ×3 (08:28→20:27)
[2022-02-25] MEDS: PANTOPRAZOLE 40MG TAB (PROTONIX) PO SCH (08:28)
[2022-02-25] MEDS: APIXABAN 2.5 MG TAB (ELIQUIS) PO SCH ×2 (08:28→20:27)
[2022-02-25] MEDS: LEVEMIR (INSULIN DETEMIR) 1 UNITS/0.01ML SC SCH ×2 (08:28→20:28)
[2022-02-25] MEDS: TORSEMIDE 20 MG TAB PO SCH (08:29)
[2022-02-25] MEDS: CARVedilol 6.25 MG TAB PO SCH ×2 (08:29→20:27)
[2022-02-25] MEDS: LACTIC ACID 12% LOTION 225 GM BTL TOP SCH (08:30)
[2022-02-25 14:00] VITALS: BP 165/80
[2022-02-25] MEDS: **VANCO AFTER HD** MISC XX SCH (16:00)
[2022-02-25 20:00] VITALS: BP 167/77
[2022-02-25] MEDS: hydrOXYzine 25 MG TAB PO SCH (20:27)
[2022-02-26] MEDS: REMEDY PHYTOPLEX Z-GUARD PASTE 113GM TUBE (FROM STOREROOM PRODUCT) TOP SCH ×6 (01:00→21:13)
[2022-02-26 06:00] VITALS: BP 154/70
[2022-02-26] MEDS ORDERED: LIDOCAINE 1% SDV 5ML VIAL SC PRN (06:00)
[2022-02-26] MEDS ORDERED: SODIUM CHLORIDE 0.9% 1000ML IV PRN (06:00)
[2022-02-26 06:09] LABS: BASO # 0.1 10^3/uL (0.0-0.2); BASO % 0.5 % (0.0-1.0); EOS % 0.4 % (0.0-3.0); HEMATOCRIT 29.8 % (42.0-52.0); LYMPH # 1.2 10^3/uL (1.5-5.0); LYMPH % 10.9 % (24.0-44.0); MEAN CORPUSCULAR HEMOGLOBIN 29.6 pg (27.0-33.0); MEAN CORPUSCULAR HGB CONC 30.2 g/dl (32.0-36.5); MONO % 9.2 % (2.0-8.0); NEUTROPHILS # 8.1 10^3/uL (1.5-8.5); NEUTROPHILS % 72.7 % (36.0-66.0); PLATELET COUNT, AUTOMATED 185 10^3/uL (150-450); RED BLOOD COUNT 3.04 10^6/uL (4.30-6.10); WHITE BLOOD COUNT 11.1 10^3/uL (4.0-10.0)
[2022-02-26 06:29] LABS: ERYTHROCYTE SEDIMENTATION RATE 72 mm/hr (0-20)
[2022-02-26 06:40] LABS: C REACTIVE PROTEIN QUANTITATIV 8.67 MG/DL (0.00-0.30); VANCOMYCIN RANDOM 16.3 UG/ML
[2022-02-26] MEDS: COMBIVENT RESPIMAT 100-20MCG INHALER 4GM INH SCH ×3 (07:47→20:00)
[2022-02-26] MEDS: ADVAIR HFA 230/21MCG INHALER INH SCH ×2 (07:47→20:00)
[2022-02-26] MEDS: LEVEMIR (INSULIN DETEMIR) 1 UNITS/0.01ML SC SCH ×2 (09:19→21:12)
[2022-02-26] MEDS: LACTOBACILLUS ACIDOPHILUS CAP (BACID) PO SCH ×3 (09:20→21:11)
[2022-02-26] MEDS: CLOPIDOGREL 75 MG TAB PO SCH (09:20)
[2022-02-26] MEDS: SUCROFERRIC OXYHYDROXIDE 500MG CHEW TAB (VELPHORO) PO SCH ×3 (09:20→18:13)
[2022-02-26] MEDS: APIXABAN 2.5 MG TAB (ELIQUIS) PO SCH ×2 (09:20→21:12)
[2022-02-26] MEDS: PANTOPRAZOLE 40MG TAB (PROTONIX) PO SCH (09:20)
[2022-02-26] MEDS: HumaLOG INSULIN (NovoLOG) PER UNIT SC SCH ×4 (09:20→20:45)
[2022-02-26] MEDS: TORSEMIDE 20 MG TAB PO SCH (09:20)
[2022-02-26] MEDS: LACTIC ACID 12% LOTION 225 GM BTL TOP SCH (09:22)
[2022-02-26] MEDS: CARVedilol 6.25 MG TAB PO SCH ×2 (09:25→21:12)
[2022-02-26] MEDS: DARBEPOETIN 100 MCG/0.5 ML *DIALYSIS* SYRINGE (J0882) IV SCH (13:14)
[2022-02-26] MEDS ORDERED: hydrOXYzine 25 MG TAB PO PRN (15:25)
[2022-02-26] MEDS ORDERED: VANCOMYCIN HCL 1,000 MG, VIAL MATE ADAPTER 1 EACH in NS 250 ML IV SCH (16:00)
[2022-02-26] MEDS: **VANCO AFTER HD** MISC XX SCH (16:00)
[2022-02-26 17:41] VITALS: BP 158/84
[2022-02-26 19:44] VITALS: BP 146/74
[2022-02-26] MEDS: hydrOXYzine 25 MG TAB PO SCH (21:12)
[2022-02-27] MEDS: REMEDY PHYTOPLEX Z-GUARD PASTE 113GM TUBE (FROM STOREROOM PRODUCT) TOP SCH ×6 (01:00→20:54)
[2022-02-27 06:00] VITALS: BP 126/58
[2022-02-27] MEDS: HumaLOG INSULIN (NovoLOG) PER UNIT SC SCH ×4 (07:49→20:21)
[2022-02-27] MEDS: SUCROFERRIC OXYHYDROXIDE 500MG CHEW TAB (VELPHORO) PO SCH ×3 (07:49→17:18)
[2022-02-27] MEDS: ADVAIR HFA 230/21MCG INHALER INH SCH ×2 (07:52→19:51)
[2022-02-27] MEDS: COMBIVENT RESPIMAT 100-20MCG INHALER 4GM INH SCH ×3 (07:52→19:51)
[2022-02-27 08:15] VITALS: BP 126/58
[2022-02-27] MEDS: LACTIC ACID 12% LOTION 225 GM BTL TOP SCH (09:08)
[2022-02-27] MEDS: APIXABAN 2.5 MG TAB (ELIQUIS) PO SCH ×2 (09:09→20:53)
[2022-02-27] MEDS: TORSEMIDE 20 MG TAB PO SCH (09:09)
[2022-02-27] MEDS: LACTOBACILLUS ACIDOPHILUS CAP (BACID) PO SCH ×3 (09:09→20:53)
[2022-02-27] MEDS: PANTOPRAZOLE 40MG TAB (PROTONIX) PO SCH (09:09)
[2022-02-27] MEDS: LEVEMIR (INSULIN DETEMIR) 1 UNITS/0.01ML SC SCH ×2 (09:10→20:54)
[2022-02-27] MEDS: CLOPIDOGREL 75 MG TAB PO SCH (09:10)
[2022-02-27] MEDS: CARVedilol 6.25 MG TAB PO SCH ×2 (09:12→20:53)
[2022-02-27 14:00] VITALS: BP 152/75
[2022-02-27 14:37] VITALS: O2SAT 96
[2022-02-27] MEDS: **VANCO AFTER HD** MISC XX SCH (16:00)
[2022-02-27 20:00] VITALS: BP 152/70
[2022-02-27] MEDS: hydrOXYzine 25 MG TAB PO SCH (20:53)
[2022-02-28] MEDS: REMEDY PHYTOPLEX Z-GUARD PASTE 113GM TUBE (FROM STOREROOM PRODUCT) TOP SCH ×6 (00:45→20:48)
[2022-02-28 06:00] VITALS: BP 150/74
[2022-02-28] MEDS ORDERED: SODIUM CHLORIDE 0.9% 1000ML IV PRN (06:00)
[2022-02-28] MEDS ORDERED: LIDOCAINE 1% SDV 5ML VIAL SC PRN (06:00)
[2022-02-28] MEDS: ADVAIR HFA 230/21MCG INHALER INH SCH ×2 (07:18→19:27)
[2022-02-28] MEDS: COMBIVENT RESPIMAT 100-20MCG INHALER 4GM INH SCH ×3 (07:18→19:26)
[2022-02-28] MEDS: HumaLOG INSULIN (NovoLOG) PER UNIT SC SCH ×4 (07:30→21:00)
[2022-02-28] MEDS: LEVEMIR (INSULIN DETEMIR) 1 UNITS/0.01ML SC SCH ×2 (09:00→21:54)
[2022-02-28] MEDS: PANTOPRAZOLE 40MG TAB (PROTONIX) PO SCH (09:07)
[2022-02-28] MEDS: SUCROFERRIC OXYHYDROXIDE 500MG CHEW TAB (VELPHORO) PO SCH ×3 (09:07→18:17)
[2022-02-28] MEDS: TORSEMIDE 20 MG TAB PO SCH (09:07)
[2022-02-28] MEDS: CARVedilol 6.25 MG TAB PO SCH ×2 (09:08→20:48)
[2022-02-28] MEDS: LACTOBACILLUS ACIDOPHILUS CAP (BACID) PO SCH ×3 (09:08→20:48)
[2022-02-28] MEDS: APIXABAN 2.5 MG TAB (ELIQUIS) PO SCH ×2 (09:08→20:48)
[2022-02-28] MEDS: CLOPIDOGREL 75 MG TAB PO SCH (09:08)
[2022-02-28] MEDS: LACTIC ACID 12% LOTION 225 GM BTL TOP SCH (09:09)
[2022-02-28 09:31] LABS: HEMOGLOBIN 8.8 g/dl (13.5-17.5); MEAN CORPUSCULAR HEMOGLOBIN 29.5 pg (27.0-33.0); MEAN CORPUSCULAR HGB CONC 30.3 g/dl (32.0-36.5); MEAN CORPUSCULAR VOLUME 97.3 fl (80.0-96.0); PLATELET COUNT, AUTOMATED 194 10^3/uL (150-450); RED BLOOD COUNT 2.98 10^6/uL (4.30-6.10); WHITE BLOOD COUNT 8.1 10^3/uL (4.0-10.0)
[2022-02-28 10:00] LABS: CALCIUM LEVEL 8.6 MG/DL (8.5-10.1); CREATININE FOR GFR 7.01 MG/DL (0.70-1.30); GLOMERULAR FILTRATION RATE 8.8 (>56); POTASSIUM SERUM 4.7 MEQ/L (3.5-5.1); VANCOMYCIN RANDOM 23.8 UG/ML
[2022-02-28 10:12] LABS: ATYPICAL LYMPH 1 % (0-5); BASOPHILS 1 % (0-1); EOSINOPHILS 1 % (0-3); LYMPHOCYTES 6 % (16-44); METAMYELOCYTES 1 % (0-0); MONOCYTES 4 % (0-5); MYELOCYTES 6 % (0-0); NEUTROPHILS 76 % (28-66)
[2022-02-28 10:13] LABS: GIANT PLATELETS 1+; MICROCYTOSIS 1+; OVALOCYTES 1+; PLATELET ESTIMATE NORMAL (NORMAL)
[2022-02-28 10:14] LABS: TEAR DROP CELLS 1+
[2022-02-28 18:13] VITALS: BP 155/79
[2022-02-28] MEDS: **VANCO AFTER HD** MISC XX SCH (18:18)
[2022-02-28] MEDS: VANCOMYCIN HCL 750 MG, VIAL MATE ADAPTER 1 EACH in NS 250 ML IV SCH (18:18)
[2022-02-28 20:00] VITALS: BP 137/65
[2022-02-28] MEDS: hydrOXYzine 25 MG TAB PO SCH (20:48)
[2022-03-01] MEDS: REMEDY PHYTOPLEX Z-GUARD PASTE 113GM TUBE (FROM STOREROOM PRODUCT) TOP SCH ×6 (01:00→21:00)
[2022-03-01 06:00] VITALS: BP 133/66
[2022-03-01] MEDS: COMBIVENT RESPIMAT 100-20MCG INHALER 4GM INH SCH ×3 (07:16→19:47)
[2022-03-01] MEDS: ADVAIR HFA 230/21MCG INHALER INH SCH ×2 (07:16→19:47)
[2022-03-01] MEDS: HumaLOG INSULIN (NovoLOG) PER UNIT SC SCH ×4 (09:37→21:00)
[2022-03-01] MEDS: LEVEMIR (INSULIN DETEMIR) 1 UNITS/0.01ML SC SCH ×2 (09:37→21:45)
[2022-03-01] MEDS: SUCROFERRIC OXYHYDROXIDE 500MG CHEW TAB (VELPHORO) PO SCH ×3 (09:38→17:56)
[2022-03-01] MEDS: APIXABAN 2.5 MG TAB (ELIQUIS) PO SCH ×2 (09:38→21:46)
[2022-03-01] MEDS: PANTOPRAZOLE 40MG TAB (PROTONIX) PO SCH (09:38)
[2022-03-01] MEDS: LACTOBACILLUS ACIDOPHILUS CAP (BACID) PO SCH ×3 (09:38→21:46)
[2022-03-01] MEDS: CLOPIDOGREL 75 MG TAB PO SCH (09:38)
[2022-03-01] MEDS: TORSEMIDE 20 MG TAB PO SCH (09:38)
[2022-03-01] MEDS: CARVedilol 6.25 MG TAB PO SCH ×2 (09:39→21:46)
[2022-03-01] MEDS: LACTIC ACID 12% LOTION 225 GM BTL TOP SCH (12:20)
[2022-03-01 14:00] VITALS: BP 184/82
[2022-03-01] MEDS: **VANCO AFTER HD** MISC XX SCH (14:01)
[2022-03-01 21:11] VITALS: BP 154/78
[2022-03-01] MEDS: hydrOXYzine 25 MG TAB PO SCH (21:46)
[2022-03-02] MEDS: REMEDY PHYTOPLEX Z-GUARD PASTE 113GM TUBE (FROM STOREROOM PRODUCT) TOP SCH ×6 (01:00→20:45)
[2022-03-02 05:33] VITALS: BP 160/76
[2022-03-02] MEDS ORDERED: LIDOCAINE 1% SDV 5ML VIAL SC PRN (06:00)
[2022-03-02] MEDS ORDERED: SODIUM CHLORIDE 0.9% 1000ML IV PRN (06:00)
[2022-03-02] MEDS: ADVAIR HFA 230/21MCG INHALER INH SCH ×2 (07:13→19:30)
[2022-03-02] MEDS: COMBIVENT RESPIMAT 100-20MCG INHALER 4GM INH SCH ×3 (07:14→19:30)
[2022-03-02] MEDS: HumaLOG INSULIN (NovoLOG) PER UNIT SC SCH ×4 (07:30→20:43)
[2022-03-02] MEDS: LEVEMIR (INSULIN DETEMIR) 1 UNITS/0.01ML SC SCH ×2 (09:00→20:43)
[2022-03-02] MEDS: TORSEMIDE 20 MG TAB PO SCH (09:42)
[2022-03-02] MEDS: PANTOPRAZOLE 40MG TAB (PROTONIX) PO SCH (09:42)
[2022-03-02] MEDS: APIXABAN 2.5 MG TAB (ELIQUIS) PO SCH ×2 (09:42→20:44)
[2022-03-02] MEDS: CARVedilol 6.25 MG TAB PO SCH ×2 (09:42→20:44)
[2022-03-02] MEDS: CLOPIDOGREL 75 MG TAB PO SCH (09:42)
[2022-03-02] MEDS: LACTOBACILLUS ACIDOPHILUS CAP (BACID) PO SCH ×3 (09:42→20:43)
[2022-03-02] MEDS: SUCROFERRIC OXYHYDROXIDE 500MG CHEW TAB (VELPHORO) PO SCH ×3 (09:42→17:44)
[2022-03-02] MEDS: LACTIC ACID 12% LOTION 225 GM BTL TOP SCH (09:43)
[2022-03-02] MEDS: **hydrALAZINE HCL** 25 MG TAB PO SCH ×3 (10:32→20:44)
[2022-03-02 13:06] LABS: BASO % 0.4 % (0.0-1.0); EOS % 0.4 % (0.0-3.0); HEMATOCRIT 29.6 % (42.0-52.0); LYMPH # 0.9 10^3/uL (1.5-5.0); LYMPH % 16.6 % (24.0-44.0); MEAN CORPUSCULAR HEMOGLOBIN 29.2 pg (27.0-33.0); MEAN CORPUSCULAR HGB CONC 30.4 g/dl (32.0-36.5); MEAN CORPUSCULAR VOLUME 96.1 fl (80.0-96.0); MONO # 0.7 10^3/uL (0.0-0.8); MONO % 12.4 % (2.0-8.0); NEUTROPHILS # 3.7 10^3/uL (1.5-8.5); NEUTROPHILS % 66.8 % (36.0-66.0); PLATELET COUNT, AUTOMATED 213 10^3/uL (150-450); RED BLOOD COUNT 3.08 10^6/uL (4.30-6.10); WHITE BLOOD COUNT 5.6 10^3/uL (4.0-10.0)
[2022-03-02 13:28] LABS: CALCIUM LEVEL 8.9 MG/DL (8.5-10.1); CREATININE FOR GFR 6.83 MG/DL (0.70-1.30); POTASSIUM SERUM 5.1 MEQ/L (3.5-5.1)
[2022-03-02] MEDS: **VANCO AFTER HD** MISC XX SCH (17:52)
[2022-03-02] MEDS: VANCOMYCIN HCL 750 MG, VIAL MATE ADAPTER 1 EACH in NS 250 ML IV SCH (17:52)
[2022-03-02 20:00] VITALS: BP 150/88
[2022-03-02] MEDS ORDERED: LEVEMIR (INSULIN DETEMIR) 1 UNITS/0.01ML SC ONE (20:20)
[2022-03-02] MEDS: hydrOXYzine 25 MG TAB PO SCH (20:44)
[2022-03-03] MEDS: REMEDY PHYTOPLEX Z-GUARD PASTE 113GM TUBE (FROM STOREROOM PRODUCT) TOP SCH ×6 (00:52→19:50)
[2022-03-03 06:00] VITALS: BP 157/76
[2022-03-03] MEDS: COMBIVENT RESPIMAT 100-20MCG INHALER 4GM INH SCH ×3 (07:34→19:40)
[2022-03-03] MEDS: ADVAIR HFA 230/21MCG INHALER INH SCH ×2 (07:34→19:40)
[2022-03-03] MEDS: PANTOPRAZOLE 40MG TAB (PROTONIX) PO SCH (08:45)
[2022-03-03] MEDS: SUCROFERRIC OXYHYDROXIDE 500MG CHEW TAB (VELPHORO) PO SCH ×3 (08:45→17:42)
[2022-03-03] MEDS: CARVedilol 6.25 MG TAB PO SCH ×2 (08:46→20:04)
[2022-03-03] MEDS: LACTOBACILLUS ACIDOPHILUS CAP (BACID) PO SCH ×3 (08:46→20:04)
[2022-03-03] MEDS: CLOPIDOGREL 75 MG TAB PO SCH (08:46)
[2022-03-03] MEDS: TORSEMIDE 20 MG TAB PO SCH (08:46)
[2022-03-03] MEDS: APIXABAN 2.5 MG TAB (ELIQUIS) PO SCH ×2 (08:46→20:04)
[2022-03-03] MEDS: HumaLOG INSULIN (NovoLOG) PER UNIT SC SCH ×4 (08:47→19:42)
[2022-03-03] MEDS: **hydrALAZINE HCL** 25 MG TAB PO SCH ×3 (08:47→20:05)
[2022-03-03] MEDS: LACTIC ACID 12% LOTION 225 GM BTL TOP SCH (08:49)
[2022-03-03] MEDS: LEVEMIR (INSULIN DETEMIR) 1 UNITS/0.01ML SC SCH ×2 (08:52→20:05)
[2022-03-03] MEDS: **VANCO AFTER HD** MISC XX SCH (12:44)
[2022-03-03 14:00] VITALS: BP 146/72
[2022-03-03 20:00] VITALS: BP 170/80
[2022-03-03] MEDS: hydrOXYzine 25 MG TAB PO SCH (20:04)
[2022-03-03 23:00] VITALS: BP 128/62
[2022-03-04] MEDS: REMEDY PHYTOPLEX Z-GUARD PASTE 113GM TUBE (FROM STOREROOM PRODUCT) TOP SCH ×6 (00:20→20:34)
[2022-03-04 06:00] VITALS: BP 158/72
[2022-03-04] MEDS: ADVAIR HFA 230/21MCG INHALER INH SCH ×2 (07:35→19:58)
[2022-03-04] MEDS: COMBIVENT RESPIMAT 100-20MCG INHALER 4GM INH SCH ×3 (07:35→19:58)
[2022-03-04] MEDS: LEVEMIR (INSULIN DETEMIR) 1 UNITS/0.01ML SC SCH ×2 (08:51→20:32)
[2022-03-04] MEDS: HumaLOG INSULIN (NovoLOG) PER UNIT SC SCH ×4 (08:51→20:33)
[2022-03-04] MEDS: SUCROFERRIC OXYHYDROXIDE 500MG CHEW TAB (VELPHORO) PO SCH ×3 (09:35→17:34)
[2022-03-04] MEDS: CLOPIDOGREL 75 MG TAB PO SCH (09:35)
[2022-03-04] MEDS: APIXABAN 2.5 MG TAB (ELIQUIS) PO SCH ×2 (09:35→20:34)
[2022-03-04] MEDS: PANTOPRAZOLE 40MG TAB (PROTONIX) PO SCH (09:35)
[2022-03-04] MEDS: LACTOBACILLUS ACIDOPHILUS CAP (BACID) PO SCH ×3 (09:35→20:33)
[2022-03-04] MEDS: CARVedilol 6.25 MG TAB PO SCH ×2 (09:36→20:33)
[2022-03-04] MEDS: **hydrALAZINE HCL** 25 MG TAB PO SCH ×3 (09:36→20:34)
[2022-03-04] MEDS: TORSEMIDE 20 MG TAB PO SCH (09:36)
[2022-03-04] MEDS: LACTIC ACID 12% LOTION 225 GM BTL TOP SCH (09:37)
[2022-03-04 14:00] VITALS: BP 167/80
[2022-03-04] MEDS: VANCOMYCIN HCL 750 MG, VIAL MATE ADAPTER 1 EACH in NS 250 ML IV SCH (16:05)
[2022-03-04] MEDS: **VANCO AFTER HD** MISC XX SCH (16:06)
[2022-03-04 20:00] VITALS: BP 148/64
[2022-03-04] MEDS: hydrOXYzine 25 MG TAB PO SCH (20:34)
[2022-03-05] MEDS: REMEDY PHYTOPLEX Z-GUARD PASTE 113GM TUBE (FROM STOREROOM PRODUCT) TOP SCH ×6 (01:00→20:45)
[2022-03-05] MEDS ORDERED: SODIUM CHLORIDE 0.9% 1000ML IV PRN (05:50)
[2022-03-05 06:00] VITALS: BP 157/70
[2022-03-05] MEDS: ADVAIR HFA 230/21MCG INHALER INH SCH ×2 (06:03→19:34)
[2022-03-05] MEDS: COMBIVENT RESPIMAT 100-20MCG INHALER 4GM INH SCH ×3 (06:03→19:34)
[2022-03-05 07:21] LABS: BASO % 0.4 % (0.0-1.0); EOS % 0.7 % (0.0-3.0); HEMATOCRIT 28.8 % (42.0-52.0); HEMOGLOBIN 8.9 g/dl (13.5-17.5); LYMPH # 1.1 10^3/uL (1.5-5.0); LYMPH % 19.5 % (24.0-44.0); MEAN CORPUSCULAR HEMOGLOBIN 29.6 pg (27.0-33.0); MEAN CORPUSCULAR HGB CONC 30.9 g/dl (32.0-36.5); MEAN CORPUSCULAR VOLUME 95.7 fl (80.0-96.0); MONO # 0.7 10^3/uL (0.0-0.8); MONO % 12.5 % (2.0-8.0); NEUTROPHILS # 3.6 10^3/uL (1.5-8.5); PLATELET COUNT, AUTOMATED 194 10^3/uL (150-450); RED BLOOD COUNT 3.01 10^6/uL (4.30-6.10); WHITE BLOOD COUNT 5.5 10^3/uL (4.0-10.0)
[2022-03-05 07:51] LABS: CALCIUM LEVEL 8.7 MG/DL (8.5-10.1); GLOMERULAR FILTRATION RATE 8.8 (>56); POTASSIUM SERUM 5.3 MEQ/L (3.5-5.1); VANCOMYCIN RANDOM 24.7 UG/ML
[2022-03-05] MEDS: LACTOBACILLUS ACIDOPHILUS CAP (BACID) PO SCH ×3 (09:04→20:43)
[2022-03-05] MEDS: APIXABAN 2.5 MG TAB (ELIQUIS) PO SCH ×2 (09:04→20:43)
[2022-03-05] MEDS: TORSEMIDE 20 MG TAB PO SCH (09:04)
[2022-03-05] MEDS: HumaLOG INSULIN (NovoLOG) PER UNIT SC SCH ×4 (09:05→22:28)
[2022-03-05] MEDS: LEVEMIR (INSULIN DETEMIR) 1 UNITS/0.01ML SC SCH (09:05)
[2022-03-05] MEDS: SUCROFERRIC OXYHYDROXIDE 500MG CHEW TAB (VELPHORO) PO SCH ×3 (09:05→18:59)
[2022-03-05] MEDS: CLOPIDOGREL 75 MG TAB PO SCH (09:05)
[2022-03-05] MEDS: PANTOPRAZOLE 40MG TAB (PROTONIX) PO SCH (09:05)
[2022-03-05] MEDS: LACTIC ACID 12% LOTION 225 GM BTL TOP SCH (09:06)
[2022-03-05] MEDS: CARVedilol 6.25 MG TAB PO SCH ×2 (09:06→20:44)
[2022-03-05] MEDS: **hydrALAZINE HCL** 25 MG TAB PO SCH ×3 (09:06→20:44)
[2022-03-05 14:00] VITALS: BP 146/67
[2022-03-05] MEDS: DARBEPOETIN 100 MCG/0.5 ML *DIALYSIS* SYRINGE (J0882) IV SCH (15:32)
[2022-03-05] MEDS: **VANCO AFTER HD** MISC XX SCH (16:00)
[2022-03-05 18:00] VITALS: BP 170/75
[2022-03-05 20:00] VITALS: BP 159/77
[2022-03-05] MEDS: hydrOXYzine 25 MG TAB PO SCH (20:43)
[2022-03-06] MEDS: REMEDY PHYTOPLEX Z-GUARD PASTE 113GM TUBE (FROM STOREROOM PRODUCT) TOP SCH ×4 (00:22→12:28)
[2022-03-06 06:00] VITALS: BP 161/77
[2022-03-06] MEDS: COMBIVENT RESPIMAT 100-20MCG INHALER 4GM INH SCH ×2 (08:00→13:22)
[2022-03-06] MEDS: HumaLOG INSULIN (NovoLOG) PER UNIT SC SCH ×2 (08:33→12:28)
[2022-03-06] MEDS: SUCROFERRIC OXYHYDROXIDE 500MG CHEW TAB (VELPHORO) PO SCH ×2 (08:33→12:28)
[2022-03-06] MEDS: PANTOPRAZOLE 40MG TAB (PROTONIX) PO SCH (08:33)
[2022-03-06] MEDS: APIXABAN 2.5 MG TAB (ELIQUIS) PO SCH (08:34)
[2022-03-06] MEDS: TORSEMIDE 20 MG TAB PO SCH (08:34)
[2022-03-06] MEDS: CLOPIDOGREL 75 MG TAB PO SCH (08:34)
[2022-03-06] MEDS: LACTOBACILLUS ACIDOPHILUS CAP (BACID) PO SCH (08:34)
[2022-03-06 08:35] VITALS: BP 157/67
[2022-03-06] MEDS: CARVedilol 6.25 MG TAB PO SCH (08:35)
[2022-03-06] MEDS: **hydrALAZINE HCL** 25 MG TAB PO SCH (08:35)
[2022-03-06] MEDS: LACTIC ACID 12% LOTION 225 GM BTL TOP SCH (08:36)
[2022-03-06] MEDS: ADVAIR HFA 230/21MCG INHALER INH SCH (08:45)
[2022-03-06] MEDS ORDERED: ELIQ2.5T PO (08:58)
[2022-03-06] MEDS ORDERED: TORS20TA2 PO (08:58)
[2022-03-06] MEDS ORDERED: CARV6.25 PO (08:58)
[2022-03-06] MEDS ORDERED: ADVA230A INH (08:58)
[2022-03-06] MEDS ORDERED: HYDR25TA PO (08:59)
[2022-03-06] MEDS ORDERED: PANT40TA29 PO (08:59)
[2022-03-06] MEDS ORDERED: PLAV1TAB2 PO (08:59)
[2022-03-06] MEDS ORDERED: RISATAB3 PO (08:59)
[2022-03-06] MEDS ORDERED: HYDR-3363 PO (08:59)
[2022-03-06] MEDS ORDERED: VENTAER INH (08:59)
[2022-03-06] MEDS ORDERED: LEVE1INJ5 SC (08:59)
[2022-03-06] MEDS ORDERED: VELP5CHW PO (08:59)
[2022-03-06] MEDS ORDERED: AMMO12LO TOP (08:59)
[2022-03-06] MEDS ORDERED: LEVEMIR (INSULIN DETEMIR) 1 UNITS/0.01ML SC SCH ×2 (09:00→21:00)
== END 2022-03-06 14:15 | disposition home health service (06) | DRG 73 ==
LOC: M PM&R 16:25
PROVIDERS: ADMIT Physical Medicine & Rehabilitation; ATTEND Physical Medicine & Rehabilitation
PROC: 5A1D70Z Performance of Urinary Filtration, Intermittent, Less than 6 Hours Per Day (ICD-10-PCS; principal; 2022-03-05)
DX: E11.42 Type 2 diabetes mellitus with diabetic polyneuropathy (principal); N18.6 End stage renal disease; I13.2 Hypertensive heart and chronic kidney disease with heart failure and with stage 5 chronic kidney disease, or end stage renal disease; I48.92 Unspecified atrial flutter; M86.9 Osteomyelitis, unspecified; L97.419 Non-pressure chronic ulcer of right heel and midfoot with unspecified severity; Z99.2 Dependence on renal dialysis; I50.9 Heart failure, unspecified; F32.A Depression, unspecified; F41.9 Anxiety disorder, unspecified; I89.0 Lymphedema, not elsewhere classified; E11.51 Type 2 diabetes mellitus with diabetic peripheral angiopathy without gangrene; Z74.09 Other reduced mobility; Z74.1 Need for assistance with personal care; R19.7 Diarrhea, unspecified; J44.9 Chronic obstructive pulmonary disease, unspecified; Z79.02 Long term (current) use of antithrombotics/antiplatelets; Z79.4 Long term (current) use of insulin; Z79.899 Other long term (current) drug therapy; Z88.6 Allergy status to analgesic agent; Z91.018 Allergy to other foods; Z91.048 Other nonmedicinal substance allergy status; E11.69 Type 2 diabetes mellitus with other specified complication; E11.22 Type 2 diabetes mellitus with diabetic chronic kidney disease; I73.9 Peripheral vascular disease, unspecified; R53.1 Weakness; E11.621 Type 2 diabetes mellitus with foot ulcer; D63.1 Anemia in chronic kidney disease; E11.43 Type 2 diabetes mellitus with diabetic autonomic (poly)neuropathy

== ENCOUNTER 2022-03-22 18:21 | Inpatient (IN) | payer MEDICARE, MEDICAID ==
[~2022-03-22] VITALS: Ht 190.5 cm; Wt 101.0 kg
[~2022-03-22 18:21] MED LIST changes: +AMMO12LO TOP; +HYDR-3363 PO; +HYDR25TA PO; +PANT40TA29 PO; +RISATAB3 PO
[2022-03-22 22:11] LABS: BASO % 0.2 % (0.0-1.0); EOS % 0.3 % (0.0-3.0); HEMATOCRIT 26.8 % (42.0-52.0); HEMOGLOBIN 8.1 g/dl (13.5-17.5); LYMPH # 0.8 10^3/uL (1.5-5.0); MEAN CORPUSCULAR HEMOGLOBIN 28.9 pg (27.0-33.0); MEAN CORPUSCULAR HGB CONC 30.2 g/dl (32.0-36.5); MEAN CORPUSCULAR VOLUME 95.7 fl (80.0-96.0); MONO # 1.1 10^3/uL (0.0-0.8); MONO % 10.2 % (2.0-8.0); NEUTROPHILS # 8.3 10^3/uL (1.5-8.5); NEUTROPHILS % 79.8 % (36.0-66.0); PLATELET COUNT, AUTOMATED 271 10^3/uL (150-450); VENOUS BASE EXCESS 3.6 (-2.0-2.0); VENOUS HCO3 30.1 MEQ/L (23.0-27.0); VENOUS O2 SATURATION 82.6 % (60.0-80.0); VENOUS PARTIAL PRESSURE CO2 56.2 mmHg (38.0-50.0); VENOUS PARTIAL PRESSURE O2 50.5 mmHg (30.0-50.0); VENOUS PH 7.346 UNITS (7.330-7.430); VENOUS STANDARD HCO3 27.4 MEQ/L; VENOUS TOTAL CO2 31.8 MEQ/L (24.0-28.0); WHITE BLOOD COUNT 10.4 10^3/uL (4.0-10.0)
[2022-03-22 22:31] LABS: HEMOGLOBIN A1c 9.1 %
[2022-03-22 22:41] LABS: ACETONE/KETONE 0.45 MG/DL (<2.81); ALBUMIN 1.6 GM/DL (3.2-5.2); BILIRUBIN,DIRECT 0.7 MG/DL (0.0-0.2); CALCIUM LEVEL 8.1 MG/DL (8.5-10.1); CREATININE FOR GFR 4.93 MG/DL (0.70-1.30); GLOMERULAR FILTRATION RATE 13.2 (>56); POTASSIUM SERUM 3.6 MEQ/L (3.5-5.1); TOTAL PROTEIN 6.5 GM/DL (6.4-8.2)
[2022-03-23] VITALS (14 sets, daily range): BP systolic 110–137; BP diastolic 52–81
[2022-03-23 00:09] LABS: RSV AMPLIFICATION NEGATIVE (NEGATIVE)
[2022-03-23] MEDS ORDERED: MOM 30ML SUSPENSION UDC PO PRN (02:20)
[2022-03-23] MEDS ORDERED: DEXTROSE 50% 50 ML SYRINGE IV PRN ×2 (02:20→09:05)
[2022-03-23] MEDS ORDERED: GLUCAGON INJ 1MG VIAL SC PRN ×2 (02:20→09:05)
[2022-03-23] MEDS ORDERED: MAALOX 30 ML SUSP *UDC PO PRN (02:20)
[2022-03-23] MEDS ORDERED: GLUCOSE 4GM CHEW TABLET PO PRN ×2 (02:20→09:05)
[2022-03-23] MEDS ORDERED: ELIQ2.5T PO (02:42)
[2022-03-23] MEDS ORDERED: ALBU8.5H INH (02:42)
[2022-03-23] MEDS ORDERED: AMMO12LO TOP (02:42)
[2022-03-23 02:43] LABS: INR 1.31; PROTHROMBIN TIME 16.7 SECONDS (12.7-14.5)
[2022-03-23 02:44] LABS: PARTIAL THROMBOPLASTIN TIME 48.9 SECONDS (25.9-37.0)
[2022-03-23] MEDS ORDERED: CARV6.25 PO (02:52)
[2022-03-23] MEDS ORDERED: RISATAB3 PO (02:52)
[2022-03-23] MEDS ORDERED: CLOP75TA2 PO (02:52)
[2022-03-23] MEDS ORDERED: ADVA230A INH (02:52)
[2022-03-23] MEDS ORDERED: HYDR-3363 PO (02:52)
[2022-03-23] MEDS ORDERED: PANT40TA29 PO (02:52)
[2022-03-23] MEDS ORDERED: INSUDET SC (02:52)
[2022-03-23] MEDS ORDERED: HYDR-3910 PO (02:52)
[2022-03-23] MEDS ORDERED: TORS20TA2 PO (02:52)
[2022-03-23] MEDS ORDERED: VELP5CHW PO (02:52)
[2022-03-23] MEDS ORDERED: INSUHUMDS SC (02:52)
[2022-03-23] MEDS ORDERED: ALBUTEROL 90 MCG/ACT 8GM HFA INHALER INH PRN (02:55)
[2022-03-23] MEDS ORDERED: ADVAIR HFA 230/21MCG INHALER INH PRN (02:55)
[2022-03-23] MEDS ORDERED: HOME MED LIST COMPLETE! XX SCH (02:55)
[2022-03-23] MEDS: ACETAMINOPHEN TAB 650MG DOSE (2X325MG) PO PRN (03:49)
[2022-03-23] MEDS ORDERED: HumaLOG INSULIN (NovoLOG) PER UNIT SC SCH ×3 (06:00→21:00)
[2022-03-23 06:50] LABS: HEMATOCRIT 24.2 % (42.0-52.0); HEMOGLOBIN 7.3 g/dl (13.5-17.5); MEAN CORPUSCULAR HGB CONC 30.2 g/dl (32.0-36.5); PLATELET COUNT, AUTOMATED 265 10^3/uL (150-450); RED BLOOD COUNT 2.52 10^6/uL (4.30-6.10); WHITE BLOOD COUNT 10.5 10^3/uL (4.0-10.0)
[2022-03-23] MEDS ORDERED: DEXTROSE 50% 50 ML SYRINGE IV STA (06:53)
[2022-03-23 07:17] LABS: CREATININE FOR GFR 5.3 MG/DL (0.70-1.30); GLOMERULAR FILTRATION RATE 12.1 (>56); MAGNESIUM LEVEL 2.2 MG/DL (1.8-2.4); POTASSIUM SERUM 3.6 MEQ/L (3.5-5.1)
[2022-03-23] MEDS ORDERED: VANC1PLA7 IV (08:04)
[2022-03-23] MEDS: PANTOPRAZOLE 40MG TAB (PROTONIX) PO SCH (08:21)
[2022-03-23] MEDS: LACTOBACILLUS ACIDOPHILUS CAP (BACID) PO SCH ×3 (08:21→17:48)
[2022-03-23] MEDS: SUCROFERRIC OXYHYDROXIDE 500MG CHEW TAB (VELPHORO) PO SCH ×3 (08:21→17:48)
[2022-03-23] MEDS: TORSEMIDE 20 MG TAB PO SCH (08:22)
[2022-03-23] MEDS: LACTIC ACID 12% LOTION 225 GM BTL TOP SCH (08:25)
[2022-03-23] MEDS: CARVedilol 6.25 MG TAB PO SCH ×2 (08:47→20:25)
[2022-03-23] MEDS: **hydrALAZINE HCL** 25 MG TAB PO SCH ×3 (08:47→20:32)
[2022-03-23] MEDS ORDERED: CLOPIDOGREL 75 MG TAB PO SCH (09:00)
[2022-03-23] MEDS ORDERED: LEVEMIR (INSULIN DETEMIR) 1 UNITS/0.01ML SC SCH ×2 (09:00→21:00)
[2022-03-23] MEDS ORDERED: SODIUM CHLORIDE 0.9% 1000ML IV PRN (10:50)
[2022-03-23] MEDS: HumaLOG INSULIN (NovoLOG) PER UNIT SC SCH ×2 (12:00→17:48)
[2022-03-23 12:51] LABS: C REACTIVE PROTEIN QUANTITATIV 19.8 MG/DL (0.00-0.30)
[2022-03-23] MEDS: PIPERACILLIN/TAZOBACTAM SOD 2.25 GM in D5W MINI-BAG PLUS 50 ML IV SCH ×2 (13:00→20:24)
[2022-03-23] MEDS ORDERED: VANCOMYCIN HCL 1,000 MG, VIAL MATE ADAPTER 1 EACH in NS 250 ML IV SCH (16:00)
[2022-03-23] MEDS: hydrOXYzine 25 MG TAB PO SCH (20:25)
[2022-03-24] VITALS (11 sets, daily range): BP systolic 110–119; BP diastolic 47–65
[2022-03-24] MEDS: PIPERACILLIN/TAZOBACTAM SOD 2.25 GM in D5W MINI-BAG PLUS 50 ML IV SCH ×3 (04:22→20:40)
[2022-03-24 06:18] LABS: HEMATOCRIT 29.1 % (42.0-52.0); HEMOGLOBIN 8.7 g/dl (13.5-17.5); MEAN CORPUSCULAR HEMOGLOBIN 28.7 pg (27.0-33.0); MEAN CORPUSCULAR HGB CONC 29.9 g/dl (32.0-36.5); PLATELET COUNT, AUTOMATED 282 10^3/uL (150-450); RED BLOOD COUNT 3.03 10^6/uL (4.30-6.10); WHITE BLOOD COUNT 10.9 10^3/uL (4.0-10.0)
[2022-03-24 06:36] LABS: CALCIUM LEVEL 8.4 MG/DL (8.5-10.1); CREATININE FOR GFR 4.22 MG/DL (0.70-1.30); GLOMERULAR FILTRATION RATE 15.7 (>56); MAGNESIUM LEVEL 2.2 MG/DL (1.8-2.4); POTASSIUM SERUM 3.9 MEQ/L (3.5-5.1)
[2022-03-24] MEDS ORDERED: ROCURONIUM BROMIDE 50 MG/5 ML VIAL As Ordered ONE (07:38)
[2022-03-24] MEDS ORDERED: MIDAZOLAM INJ 2MG/2ML VIAL (J2250 PER 1MG) As Ordered ONE (07:38)
[2022-03-24] MEDS ORDERED: LIDOCAINE 2% 100MG/5ML SDV (FOR ANES.) As Ordered ONE (07:38)
[2022-03-24] MEDS ORDERED: propofoL 200 MG/20 ML VIAL As Ordered ONE (07:38)
[2022-03-24] MEDS ORDERED: fentaNYL 100 MCG/2 ML INJECTION As Ordered ONE (07:38)
[2022-03-24] MEDS ORDERED: dexameTHASONE 4 MG/ML 1ML VIAL (J1100 PER 1MG) As Ordered ONE (07:39)
[2022-03-24] MEDS ORDERED: ONDANSETRON 4MG/2ML VIAL As Ordered ONE (07:39)
[2022-03-24] MEDS: LACTOBACILLUS ACIDOPHILUS CAP (BACID) PO SCH ×3 (08:00→18:40)
[2022-03-24] MEDS: SUCROFERRIC OXYHYDROXIDE 500MG CHEW TAB (VELPHORO) PO SCH ×3 (08:00→18:40)
[2022-03-24] MEDS: HumaLOG INSULIN (NovoLOG) PER UNIT SC SCH ×3 (08:13→18:41)
[2022-03-24] MEDS: CARVedilol 6.25 MG TAB PO SCH ×2 (08:14→20:42)
[2022-03-24] MEDS: **hydrALAZINE HCL** 25 MG TAB PO SCH ×3 (08:15→20:42)
[2022-03-24] MEDS ORDERED: FLUBLOK(EGG FREE)(QUAD)INFLUENZA VACC 0.5ML SYRINGE 18YRS & OLDER IM ONE (09:00)
[2022-03-24] MEDS: PANTOPRAZOLE 40MG TAB (PROTONIX) PO SCH (09:00)
[2022-03-24] MEDS: LACTIC ACID 12% LOTION 225 GM BTL TOP SCH (09:00)
[2022-03-24] MEDS: TORSEMIDE 20 MG TAB PO SCH (09:00)
[2022-03-24] MEDS: LEVEMIR (INSULIN DETEMIR) 1 UNITS/0.01ML SC SCH ×2 (09:00→20:40)
[2022-03-24] MEDS ORDERED: ACETAMINOPHEN 1000MG 100ML IV BTL (OFIRMEV) (J0131 PER 10MG) As Ordered ONE (10:04)
[2022-03-24] MEDS ORDERED: SUGAMMADEX SODIUM 500 MG/5 ML VIAL (BRIDION) As Ordered ONE ×2 (10:18→14:20)
[2022-03-24] MEDS ORDERED: VASOPRESSIN INJ 20 UNITS/ML VIAL As Ordered ONE (10:43)
[2022-03-24] MEDS ORDERED: CALCIUM CHLORIDE 10% 1 GM/10 ML SYR As Ordered ONE (10:44)
[2022-03-24] MEDS ORDERED: ePHEDrine SULFATE 25 MG/5 ML(5MG/ML) SYRINGE As Ordered ONE (10:45)
[2022-03-24] MEDS ORDERED: PHENYLephrine 500MCG 5ML (100MCG/ML) SYRINGE As Ordered ONE (10:45)
[2022-03-24] MEDS ORDERED: PERCOCET 5MG/325MG TAB PO PRN ×2 (10:45)
[2022-03-24] MEDS ORDERED: oxyCODONE 5MG TAB PO PRN (11:05)
[2022-03-24] MEDS ORDERED: NS 1,000 ML IV SCH (11:05)
[2022-03-24] MEDS ORDERED: fentaNYL 100 MCG/2 ML INJECTION IV PRN (11:05)
[2022-03-24] MEDS ORDERED: ONDANSETRON 4MG/2ML VIAL IV PRN (11:05)
[2022-03-24] MEDS: hydrOXYzine 25 MG TAB PO SCH (20:41)
[2022-03-24] MEDS: ACETAMINOPHEN TAB 650MG DOSE (2X325MG) PO PRN (20:41)
[2022-03-25] VITALS (24 sets, daily range): BP systolic 85–178; BP diastolic 45–95
[2022-03-25] MEDS: PIPERACILLIN/TAZOBACTAM SOD 2.25 GM in D5W MINI-BAG PLUS 50 ML IV SCH ×3 (05:59→22:45)
[2022-03-25] MEDS ORDERED: HumaLOG INSULIN (NovoLOG) PER UNIT SC ONE (06:25)
[2022-03-25] MEDS: CARVedilol 6.25 MG TAB PO SCH ×2 (08:20→21:00)
[2022-03-25] MEDS: **hydrALAZINE HCL** 25 MG TAB PO SCH (08:20)
[2022-03-25] MEDS: LEVEMIR (INSULIN DETEMIR) 1 UNITS/0.01ML SC SCH ×2 (08:21→21:00)
[2022-03-25] MEDS: PANTOPRAZOLE 40MG TAB (PROTONIX) PO SCH (08:21)
[2022-03-25] MEDS: HumaLOG INSULIN (NovoLOG) PER UNIT SC SCH ×3 (08:21→17:44)
[2022-03-25] MEDS: LACTOBACILLUS ACIDOPHILUS CAP (BACID) PO SCH ×3 (08:21→17:21)
[2022-03-25] MEDS: SUCROFERRIC OXYHYDROXIDE 500MG CHEW TAB (VELPHORO) PO SCH ×3 (08:24→17:21)
[2022-03-25] MEDS: TORSEMIDE 20 MG TAB PO SCH (08:36)
[2022-03-25 08:55] LABS: HEMATOCRIT 33.9 % (42.0-52.0); HEMOGLOBIN 9.9 g/dl (13.5-17.5); MEAN CORPUSCULAR HEMOGLOBIN 28.6 pg (27.0-33.0); MEAN CORPUSCULAR HGB CONC 29.2 g/dl (32.0-36.5); PLATELET COUNT, AUTOMATED 422 10^3/uL (150-450); RED BLOOD COUNT 3.46 10^6/uL (4.30-6.10); WHITE BLOOD COUNT 13.4 10^3/uL (4.0-10.0)
[2022-03-25 09:15] LABS: CALCIUM LEVEL 8.9 MG/DL (8.5-10.1); CREATININE FOR GFR 5.36 MG/DL (0.70-1.30); GLOMERULAR FILTRATION RATE 11.9 (>56); MAGNESIUM LEVEL 2.7 MG/DL (1.8-2.4); POTASSIUM SERUM 5.1 MEQ/L (3.5-5.1)
[2022-03-25 10:16] LABS: ABG BASE EXCESS -11.3 (-2.0-2.0); ABG HCO3 18.8 MEQ/L (22.0-26.0); ABG O2 SATURATION 98.8 % (95.0-99.0); ABG PARTIAL PRESSURE O2 165.9 mmHg (75.0-100.0); ABG STANDARD HCO3 15.5 MEQ/L (22.0-26.0); ABG TOTAL CO2 20.7 MEQ/L (22.0-29.0); ABG pH (ARTERIAL) 7.082 UNITS (7.350-7.450)
[2022-03-25 10:17] LABS: ABG PARTIAL PRESSURE CO2 64.4 mmHg (35.0-45.0)
[2022-03-25] MEDS: LACTIC ACID 12% LOTION 225 GM BTL TOP SCH (11:02)
[2022-03-25 12:26] LABS: C REACTIVE PROTEIN QUANTITATIV 17.2 MG/DL (0.00-0.30)
[2022-03-25 13:07] LABS: ABG BASE EXCESS -7.8 (-2.0-2.0); ABG HCO3 21.1 MEQ/L (22.0-26.0); ABG PARTIAL PRESSURE O2 119.2 mmHg (75.0-100.0); ABG STANDARD HCO3 18.1 MEQ/L (22.0-26.0)
[2022-03-25 13:09] LABS: ABG pH (ARTERIAL) 7.157 UNITS (7.350-7.450)
[2022-03-25 16:44] LABS: ABG BASE EXCESS -9.7 (-2.0-2.0); ABG HCO3 21.2 MEQ/L (22.0-26.0); ABG O2 SATURATION 89.4 % (95.0-99.0); ABG PARTIAL PRESSURE O2 72.8 mmHg (75.0-100.0); ABG STANDARD HCO3 16.6 MEQ/L (22.0-26.0); ABG TOTAL CO2 23.5 MEQ/L (22.0-29.0)
[2022-03-25 16:47] LABS: ABG PARTIAL PRESSURE CO2 76.2 mmHg (35.0-45.0); ABG pH (ARTERIAL) 7.062 UNITS (7.350-7.450)
[2022-03-25] MEDS ORDERED: ROCURONIUM BROMIDE 50 MG/5 ML VIAL IV ONE (17:40)
[2022-03-25] MEDS ORDERED: REFRIGERATOR IV KEYS XX PRN (17:40)
[2022-03-25] MEDS ORDERED: ETOMIDATE INJ 20MG/10ML VIAL IV ONE (17:40)
[2022-03-25] MEDS: MIDAZOLAM HCL 100 MG in D5W 80 ML IV SCH (18:39)
[2022-03-25] MEDS ORDERED: NOREPINEPHRINE BITARTRATE 16 MG in D5W 484 ML IV SCH (19:00)
[2022-03-25] MEDS: MIDAZOLAM INJ 2MG/2ML VIAL (J2250 PER 1MG) IV PRN (19:16)
[2022-03-25] MEDS: fentaNYL 100 MCG/2 ML INJECTION IV PRN (19:16)
[2022-03-25 21:45] LABS: ABG BASE EXCESS -4.1 (-2.0-2.0); ABG HCO3 21.1 MEQ/L (22.0-26.0); ABG O2 SATURATION 99.5 % (95.0-99.0); ABG PARTIAL PRESSURE CO2 39.2 mmHg (35.0-45.0); ABG TOTAL CO2 22.3 MEQ/L (22.0-29.0); ABG pH (ARTERIAL) 7.349 UNITS (7.350-7.450)
[2022-03-25] MEDS: hydrOXYzine 25 MG TAB PO SCH (22:45)
[2022-03-26] VITALS (22 sets, daily range): BP systolic 105–171; BP diastolic 52–103
[2022-03-26] MEDS: fentaNYL 100 MCG/2 ML INJECTION IV PRN ×3 (03:14→23:15)
[2022-03-26] MEDS: PIPERACILLIN/TAZOBACTAM SOD 2.25 GM in D5W MINI-BAG PLUS 50 ML IV SCH ×3 (04:45→20:53)
[2022-03-26 05:11] LABS: HEMATOCRIT 28.4 % (42.0-52.0); HEMOGLOBIN 8.9 g/dl (13.5-17.5); MEAN CORPUSCULAR HEMOGLOBIN 29.1 pg (27.0-33.0); MEAN CORPUSCULAR HGB CONC 31.3 g/dl (32.0-36.5); MEAN CORPUSCULAR VOLUME 92.8 fl (80.0-96.0); PLATELET COUNT, AUTOMATED 332 10^3/uL (150-450); RED BLOOD COUNT 3.06 10^6/uL (4.30-6.10); WHITE BLOOD COUNT 8.2 10^3/uL (4.0-10.0)
[2022-03-26] MEDS: HumaLOG INSULIN (NovoLOG) PER UNIT SC SCH ×5 (05:33→23:29)
[2022-03-26 05:35] LABS: CALCIUM LEVEL 7.8 MG/DL (8.5-10.1); CREATININE FOR GFR 5.77 MG/DL (0.70-1.30); MAGNESIUM LEVEL 2.4 MG/DL (1.8-2.4); POTASSIUM SERUM 3.9 MEQ/L (3.5-5.1); VANCOMYCIN RANDOM 24.4 UG/ML
[2022-03-26] MEDS ORDERED: SODIUM CHLORIDE 0.9% 1000ML IV PRN (06:00)
[2022-03-26] MEDS: SUCROFERRIC OXYHYDROXIDE 500MG CHEW TAB (VELPHORO) PO SCH ×3 (07:59→17:46)
[2022-03-26] MEDS: LEVEMIR (INSULIN DETEMIR) 1 UNITS/0.01ML SC SCH ×2 (08:00→20:54)
[2022-03-26] MEDS: PANTOPRAZOLE 40MG TAB (PROTONIX) PO SCH (08:00)
[2022-03-26] MEDS ORDERED: IPRATROPIUM 0.5MG/ALBUTEROL 2.5MG INH SOL UD 3ML (DUONEB) NEB SCH (08:00)
[2022-03-26] MEDS: LACTOBACILLUS ACIDOPHILUS CAP (BACID) PO SCH ×3 (08:12→17:46)
[2022-03-26] MEDS: CARVedilol 6.25 MG TAB PO SCH ×2 (08:13→20:54)
[2022-03-26] MEDS ORDERED: DARBEPOETIN 100 MCG/0.5 ML *DIALYSIS* SYRINGE (J0882) IV SCH (09:00)
[2022-03-26] MEDS: PANTOPRAZOLE 40MG VIAL IV SCH (10:26)
[2022-03-26] MEDS: CHLORHEXIDINE GLUCONATE 0.12 % 15ML UDC (PERIDEX ORAL RINSE) MT SCH ×2 (10:26→20:53)
[2022-03-26] MEDS: LACTIC ACID 12% LOTION 225 GM BTL TOP SCH (10:26)
[2022-03-26] MEDS: HEPARIN SOD (PORCINE) 5000UNITS/ML 1ML VIAL/SYRINGE SQ SCH ×2 (10:26→20:53)
[2022-03-26] MEDS: MIDAZOLAM HCL 100 MG in D5W 80 ML IV SCH (10:28)
[2022-03-26] MEDS: BUDESONIDE 0.25 MG/2 ML INHALATION SUSPENSION INH SCH ×2 (11:19→19:14)
[2022-03-26] MEDS: methylPREDNISolone 125MG 2ML VIAL IV SCH ×2 (13:34→23:29)
[2022-03-26] MEDS: IPRATROPIUM 0.5MG/ALBUTEROL 2.5MG INH SOL UD 3ML (DUONEB) NEB SCH ×2 (16:42→19:14)
[2022-03-26] MEDS ORDERED: VANCOMYCIN HCL 750 MG, VIAL MATE ADAPTER 1 EACH in NS 250 ML IV SCH (18:00)
[2022-03-26] MEDS: hydrOXYzine 25 MG TAB PO SCH (20:54)
[2022-03-27] VITALS (23 sets, daily range): BP systolic 112–183; BP diastolic 53–77
[2022-03-27] MEDS: IPRATROPIUM 0.5MG/ALBUTEROL 2.5MG INH SOL UD 3ML (DUONEB) NEB SCH ×6 (00:22→19:00)
[2022-03-27] MEDS: HumaLOG INSULIN (NovoLOG) PER UNIT SC SCH ×3 (06:08→17:54)
[2022-03-27] MEDS: PIPERACILLIN/TAZOBACTAM SOD 2.25 GM in D5W MINI-BAG PLUS 50 ML IV SCH ×3 (06:09→20:15)
[2022-03-27] MEDS: MIDAZOLAM HCL 100 MG in D5W 80 ML IV SCH (06:09)
[2022-03-27] MEDS: BUDESONIDE 0.25 MG/2 ML INHALATION SUSPENSION INH SCH ×2 (07:47→19:00)
[2022-03-27] MEDS: SUCROFERRIC OXYHYDROXIDE 500MG CHEW TAB (VELPHORO) PO SCH ×3 (08:00→17:38)
[2022-03-27] MEDS: HEPARIN SOD (PORCINE) 5000UNITS/ML 1ML VIAL/SYRINGE SQ SCH (08:45)
[2022-03-27] MEDS: CHLORHEXIDINE GLUCONATE 0.12 % 15ML UDC (PERIDEX ORAL RINSE) MT SCH ×2 (08:45→20:16)
[2022-03-27] MEDS: LACTOBACILLUS ACIDOPHILUS CAP (BACID) PO SCH ×3 (08:45→17:55)
[2022-03-27] MEDS: CARVedilol 6.25 MG TAB PO SCH ×2 (08:46→20:16)
[2022-03-27] MEDS: PANTOPRAZOLE 40MG VIAL IV SCH (08:46)
[2022-03-27] MEDS: LEVEMIR (INSULIN DETEMIR) 1 UNITS/0.01ML SC SCH ×2 (08:54→20:16)
[2022-03-27] MEDS ORDERED: FLUBLOK(EGG FREE)(QUAD)INFLUENZA VACC 0.5ML SYRINGE 18YRS & OLDER IM ONE (09:00)
[2022-03-27 09:03] LABS: HEMATOCRIT 30.1 % (42.0-52.0); HEMOGLOBIN 9.6 g/dl (13.5-17.5); MEAN CORPUSCULAR HEMOGLOBIN 29.4 pg (27.0-33.0); MEAN CORPUSCULAR HGB CONC 31.9 g/dl (32.0-36.5); PLATELET COUNT, AUTOMATED 336 10^3/uL (150-450); RED BLOOD COUNT 3.27 10^6/uL (4.30-6.10); WHITE BLOOD COUNT 8.3 10^3/uL (4.0-10.0)
[2022-03-27] MEDS: fentaNYL 100 MCG/2 ML INJECTION IV PRN ×5 (09:03→22:00)
[2022-03-27 09:22] LABS: C REACTIVE PROTEIN QUANTITATIV 13.2 MG/DL (0.00-0.30); CALCIUM LEVEL 8.5 MG/DL (8.5-10.1); CREATININE FOR GFR 4.44 MG/DL (0.70-1.30); GLOMERULAR FILTRATION RATE 14.8 (>56); MAGNESIUM LEVEL 2.4 MG/DL (1.8-2.4); POTASSIUM SERUM 4.3 MEQ/L (3.5-5.1); VANCOMYCIN RANDOM 18.3 UG/ML
[2022-03-27] MEDS ORDERED: VANCOMYCIN HCL 750 MG, VIAL MATE ADAPTER 1 EACH in NS 250 ML IV ONE (11:00)
[2022-03-27] MEDS: methylPREDNISolone 125MG 2ML VIAL IV SCH (12:10)
[2022-03-27] MEDS: MIDAZOLAM INJ 2MG/2ML VIAL (J2250 PER 1MG) IV PRN ×4 (13:08→21:59)
[2022-03-28] VITALS (43 sets, daily range): BP systolic 70–140; BP diastolic 38–61
[2022-03-28] MEDS: MIDAZOLAM INJ 2MG/2ML VIAL (J2250 PER 1MG) IV PRN ×7 (00:22→20:57)
[2022-03-28] MEDS: fentaNYL 100 MCG/2 ML INJECTION IV PRN ×6 (00:23→19:20)
[2022-03-28] MEDS: methylPREDNISolone 125MG 2ML VIAL IV SCH ×2 (00:23→12:37)
[2022-03-28] MEDS: HumaLOG INSULIN (NovoLOG) PER UNIT SC SCH ×5 (00:23→18:45)
[2022-03-28] MEDS: IPRATROPIUM 0.5MG/ALBUTEROL 2.5MG INH SOL UD 3ML (DUONEB) NEB SCH ×6 (00:57→19:34)
[2022-03-28] MEDS: MIDAZOLAM HCL 100 MG in D5W 80 ML IV SCH ×4 (01:32→21:50)
[2022-03-28 05:29] LABS: HEMATOCRIT 32.7 % (42.0-52.0); HEMOGLOBIN 10.1 g/dl (13.5-17.5); MEAN CORPUSCULAR HEMOGLOBIN 28.4 pg (27.0-33.0); MEAN CORPUSCULAR HGB CONC 30.9 g/dl (32.0-36.5); MEAN CORPUSCULAR VOLUME 91.9 fl (80.0-96.0); PLATELET COUNT, AUTOMATED 345 10^3/uL (150-450); RED BLOOD COUNT 3.56 10^6/uL (4.30-6.10); WHITE BLOOD COUNT 8.8 10^3/uL (4.0-10.0)
[2022-03-28] MEDS: PIPERACILLIN/TAZOBACTAM SOD 2.25 GM in D5W MINI-BAG PLUS 50 ML IV SCH ×3 (05:45→20:56)
[2022-03-28 05:53] LABS: CREATININE FOR GFR 5.41 MG/DL (0.70-1.30); GLOMERULAR FILTRATION RATE 11.8 (>56); MAGNESIUM LEVEL 2.5 MG/DL (1.8-2.4); POTASSIUM SERUM 4.4 MEQ/L (3.5-5.1)
[2022-03-28] MEDS ORDERED: SODIUM CHLORIDE 0.9% 1000ML IV PRN (06:00)
[2022-03-28] MEDS: BUDESONIDE 0.25 MG/2 ML INHALATION SUSPENSION INH SCH ×2 (07:32→19:34)
[2022-03-28] MEDS: SUCROFERRIC OXYHYDROXIDE 500MG CHEW TAB (VELPHORO) PO SCH ×3 (07:55→18:44)
[2022-03-28] MEDS: LACTOBACILLUS ACIDOPHILUS CAP (BACID) PO SCH ×3 (07:55→17:36)
[2022-03-28] MEDS: LACTIC ACID 12% LOTION 225 GM BTL TOP SCH (09:00)
[2022-03-28] MEDS: PANTOPRAZOLE 40MG VIAL IV SCH (09:10)
[2022-03-28] MEDS: CHLORHEXIDINE GLUCONATE 0.12 % 15ML UDC (PERIDEX ORAL RINSE) MT SCH ×2 (09:10→20:55)
[2022-03-28] MEDS: CARVedilol 6.25 MG TAB PO SCH ×2 (09:10→20:56)
[2022-03-28] MEDS: LEVEMIR (INSULIN DETEMIR) 1 UNITS/0.01ML SC SCH ×2 (09:11→20:56)
[2022-03-28 09:19] LABS: VANCOMYCIN RANDOM 25.8 UG/ML
[2022-03-28] MEDS ORDERED: MIDAZOLAM HCL 100 MG in D5W 80 ML IV SCH (10:49)
[2022-03-28] MEDS ORDERED: ROCURONIUM BROMIDE 50 MG/5 ML VIAL As Ordered ONE (13:00)
[2022-03-28] MEDS ORDERED: BUPIVACAINE LIPOSOME/PF 1.3% 20ML VIAL (13.3MG/ML)(EXPAREL) As Ordered ONE (13:59)
[2022-03-28] MEDS ORDERED: HYDROmorphone HCL 2MG/ML 1ML VIAL As Ordered ONE (14:10)
[2022-03-28] MEDS ORDERED: NEOSTIGMINE 10MG/10ML VIAL (J2710 PER 0.5MG) As Ordered ONE (15:24)
[2022-03-28] MEDS ORDERED: GLYCOPYRROLATE INJ 0.2 MG/ML 2 ML VIAL As Ordered ONE (15:24)
[2022-03-28] MEDS ORDERED: ACETAMINOPHEN 1000MG 100ML IV BTL (OFIRMEV) (J0131 PER 10MG) As Ordered ONE (15:26)
[2022-03-28] MEDS ORDERED: VANCOMYCIN HCL 1,000 MG, VIAL MATE ADAPTER 1 EACH in NS 250 ML IV SCH (16:30)
[2022-03-28] MEDS ORDERED: MORPHINE 4 MG/ML 1ML VIAL/SYRINGE IV PRN (16:30)
[2022-03-28] MEDS ORDERED: ADVAIR HFA 230/21MCG INHALER INH PRN (16:30)
[2022-03-28] MEDS ORDERED: ALBUTEROL 90 MCG/ACT 8GM HFA INHALER INH PRN (16:30)
[2022-03-28] MEDS ORDERED: PANTOPRAZOLE 40MG TAB (PROTONIX) PO SCH (16:30)
[2022-03-28] MEDS ORDERED: PERCOCET 5MG/325MG TAB PO PRN ×2 (16:30)
[2022-03-28] MEDS ORDERED: HumaLOG INSULIN (NovoLOG) PER UNIT SC SCH (16:30)
[2022-03-28] MEDS ORDERED: MAALOX 30 ML SUSP *UDC PO PRN (16:30)
[2022-03-28] MEDS ORDERED: FLUBLOK(EGG FREE)(QUAD)INFLUENZA VACC 0.5ML SYRINGE 18YRS & OLDER IM SCH (16:30)
[2022-03-28 16:56] LABS: C REACTIVE PROTEIN QUANTITATIV 8.28 MG/DL (0.00-0.30)
[2022-03-28] MEDS ORDERED: hydrOXYzine 25 MG TAB PO SCH (18:00)
[2022-03-29] VITALS (13 sets, daily range): BP systolic 107–186; BP diastolic 50–82
[2022-03-29] MEDS: methylPREDNISolone 125MG 2ML VIAL IV SCH ×2 (00:20→11:54)
[2022-03-29] MEDS: fentaNYL 100 MCG/2 ML INJECTION IV PRN ×11 (00:20→22:35)
[2022-03-29] MEDS: HumaLOG INSULIN (NovoLOG) PER UNIT SC SCH ×4 (00:20→18:18)
[2022-03-29] MEDS: MIDAZOLAM INJ 2MG/2ML VIAL (J2250 PER 1MG) IV PRN ×11 (00:20→22:46)
[2022-03-29] MEDS: IPRATROPIUM 0.5MG/ALBUTEROL 2.5MG INH SOL UD 3ML (DUONEB) NEB SCH ×6 (00:58→19:12)
[2022-03-29] MEDS: PIPERACILLIN/TAZOBACTAM SOD 2.25 GM in D5W MINI-BAG PLUS 50 ML IV SCH ×3 (05:02→20:22)
[2022-03-29 05:08] LABS: HEMOGLOBIN 10.1 g/dl (13.5-17.5); MEAN CORPUSCULAR HEMOGLOBIN 29.3 pg (27.0-33.0); MEAN CORPUSCULAR HGB CONC 30.6 g/dl (32.0-36.5); MEAN CORPUSCULAR VOLUME 95.7 fl (80.0-96.0); PLATELET COUNT, AUTOMATED 339 10^3/uL (150-450); RED BLOOD COUNT 3.45 10^6/uL (4.30-6.10); WHITE BLOOD COUNT 13.3 10^3/uL (4.0-10.0)
[2022-03-29 05:38] LABS: CALCIUM LEVEL 8.6 MG/DL (8.5-10.1); CREATININE FOR GFR 4.18 MG/DL (0.70-1.30); GLOMERULAR FILTRATION RATE 15.9 (>56); MAGNESIUM LEVEL 2.2 MG/DL (1.8-2.4); POTASSIUM SERUM 4.8 MEQ/L (3.5-5.1); VANCOMYCIN RANDOM 20.8 UG/ML
[2022-03-29] MEDS: BUDESONIDE 0.25 MG/2 ML INHALATION SUSPENSION INH SCH ×2 (07:29→19:12)
[2022-03-29] MEDS: LACTOBACILLUS ACIDOPHILUS CAP (BACID) PO SCH ×3 (07:54→18:17)
[2022-03-29] MEDS: PANTOPRAZOLE 40MG VIAL IV SCH (09:05)
[2022-03-29] MEDS: CHLORHEXIDINE GLUCONATE 0.12 % 15ML UDC (PERIDEX ORAL RINSE) MT SCH ×2 (09:05→20:23)
[2022-03-29] MEDS: LEVEMIR (INSULIN DETEMIR) 1 UNITS/0.01ML SC SCH ×2 (09:05→20:23)
[2022-03-29] MEDS: SUCROFERRIC OXYHYDROXIDE 500MG CHEW TAB (VELPHORO) PO SCH ×3 (09:05→18:17)
[2022-03-29] MEDS: CARVedilol 6.25 MG TAB PO SCH ×2 (09:06→20:22)
[2022-03-29 09:28] LABS: VENOUS BASE EXCESS -0.9 (-2.0-2.0); VENOUS HCO3 23.8 MEQ/L (23.0-27.0); VENOUS O2 SATURATION 99.5 % (60.0-80.0); VENOUS PARTIAL PRESSURE CO2 39.5 mmHg (38.0-50.0); VENOUS PARTIAL PRESSURE O2 210.8 mmHg (30.0-50.0); VENOUS PH 7.397 UNITS (7.330-7.430); VENOUS STANDARD HCO3 23.7 MEQ/L
[2022-03-29] MEDS: LACTIC ACID 12% LOTION 225 GM BTL TOP SCH (10:05)
[2022-03-29] MEDS: MIDAZOLAM HCL 100 MG in D5W 80 ML IV SCH ×2 (10:20→13:10)
[2022-03-29] MEDS: HEPARIN SOD (PORCINE) 5000UNITS/ML 1ML VIAL/SYRINGE SQ SCH (20:23)
[2022-03-29] MEDS: HYDROcodone/APAP LIQUID 7.5-325MG 15ML UDC (LORTAB ELIXIR) PO PRN (20:24)
[2022-03-30] VITALS (17 sets, daily range): BP systolic 95–173; BP diastolic 46–83
[2022-03-30] MEDS: MIDAZOLAM HCL 100 MG in D5W 80 ML IV SCH ×2
[2022-03-30] MEDS: HumaLOG INSULIN (NovoLOG) PER UNIT SC SCH ×4 (00:19→17:47)
[2022-03-30] MEDS: MIDAZOLAM INJ 2MG/2ML VIAL (J2250 PER 1MG) IV PRN ×3 (00:20→21:42)
[2022-03-30] MEDS: methylPREDNISolone 125MG 2ML VIAL IV SCH ×2 (00:20→11:47)
[2022-03-30] MEDS: fentaNYL 100 MCG/2 ML INJECTION IV PRN ×2 (00:21→04:28)
[2022-03-30] MEDS: IPRATROPIUM 0.5MG/ALBUTEROL 2.5MG INH SOL UD 3ML (DUONEB) NEB SCH ×6 (00:39→19:03)
[2022-03-30] MEDS: HYDROcodone/APAP LIQUID 7.5-325MG 15ML UDC (LORTAB ELIXIR) PO PRN (04:27)
[2022-03-30] MEDS: PIPERACILLIN/TAZOBACTAM SOD 2.25 GM in D5W MINI-BAG PLUS 50 ML IV SCH ×3 (05:33→20:25)
[2022-03-30] MEDS ORDERED: SODIUM CHLORIDE 0.9% 1000ML IV PRN ×2 (06:00)
[2022-03-30 06:25] LABS: HEMOGLOBIN 9.1 g/dl (13.5-17.5); MEAN CORPUSCULAR HEMOGLOBIN 28.8 pg (27.0-33.0); MEAN CORPUSCULAR HGB CONC 31.4 g/dl (32.0-36.5); MEAN CORPUSCULAR VOLUME 91.8 fl (80.0-96.0); PLATELET COUNT, AUTOMATED 280 10^3/uL (150-450); RED BLOOD COUNT 3.16 10^6/uL (4.30-6.10); WHITE BLOOD COUNT 11.4 10^3/uL (4.0-10.0)
[2022-03-30 06:40] LABS: ALBUMIN 1.7 GM/DL (3.2-5.2); BILIRUBIN,TOTAL 0.8 MG/DL (0.2-1.0); CALCIUM LEVEL 8.2 MG/DL (8.5-10.1); CREATININE FOR GFR 5.58 MG/DL (0.70-1.30); GLOMERULAR FILTRATION RATE 11.4 (>56); POTASSIUM SERUM 5.1 MEQ/L (3.5-5.1); TOTAL PROTEIN 5.6 GM/DL (6.4-8.2)
[2022-03-30] MEDS: BUDESONIDE 0.25 MG/2 ML INHALATION SUSPENSION INH SCH ×2 (07:42→19:03)
[2022-03-30] MEDS: SUCROFERRIC OXYHYDROXIDE 500MG CHEW TAB (VELPHORO) PO SCH ×4 (08:00→17:24)
[2022-03-30] MEDS ORDERED: VANCOMYCIN HCL 500 MG in D5W MINI-BAG PLUS 100 ML IV SCH (08:25)
[2022-03-30] MEDS: LACTOBACILLUS ACIDOPHILUS CAP (BACID) PO SCH ×3 (08:50→17:25)
[2022-03-30] MEDS: CARVedilol 6.25 MG TAB PO SCH ×2 (08:50→20:23)
[2022-03-30] MEDS: HEPARIN SOD (PORCINE) 5000UNITS/ML 1ML VIAL/SYRINGE SQ SCH ×2 (08:51→20:24)
[2022-03-30] MEDS: PANTOPRAZOLE 40MG VIAL IV SCH (08:51)
[2022-03-30] MEDS: CHLORHEXIDINE GLUCONATE 0.12 % 15ML UDC (PERIDEX ORAL RINSE) MT SCH ×2 (08:51→20:24)
[2022-03-30] MEDS: LEVEMIR (INSULIN DETEMIR) 1 UNITS/0.01ML SC SCH ×2 (09:13→20:24)
[2022-03-30] MEDS: GABAPENTIN 100 MG CAP PO SCH (09:17)
[2022-03-30 09:34] LABS: ABG BASE EXCESS -2.6 (-2.0-2.0); ABG HCO3 22.1 MEQ/L (22.0-26.0); ABG O2 SATURATION 98.4 % (95.0-99.0); ABG PARTIAL PRESSURE CO2 37.7 mmHg (35.0-45.0); ABG PARTIAL PRESSURE O2 141.6 mmHg (75.0-100.0); ABG STANDARD HCO3 22.3 MEQ/L (22.0-26.0); ABG TOTAL CO2 23.2 MEQ/L (22.0-29.0); ABG pH (ARTERIAL) 7.385 UNITS (7.350-7.450)
[2022-03-30] MEDS: LACTIC ACID 12% LOTION 225 GM BTL TOP SCH (12:21)
[2022-03-30 18:34] LABS: CREATININE FOR GFR 2.89 MG/DL (0.70-1.30); GLOMERULAR FILTRATION RATE 24.4 (>56); MAGNESIUM LEVEL 2.3 MG/DL (1.8-2.4); POTASSIUM SERUM 4.1 MEQ/L (3.5-5.1)
[2022-03-31] VITALS (14 sets, daily range): BP systolic 94–143; BP diastolic 44–66; O2SAT 96–97
[2022-03-31] MEDS: HumaLOG INSULIN (NovoLOG) PER UNIT SC SCH ×5 (00:02→23:59)
[2022-03-31] MEDS: IPRATROPIUM 0.5MG/ALBUTEROL 2.5MG INH SOL UD 3ML (DUONEB) NEB SCH ×7 (00:03→23:28)
[2022-03-31] MEDS: MIDAZOLAM INJ 2MG/2ML VIAL (J2250 PER 1MG) IV PRN (01:37)
[2022-03-31] MEDS: PIPERACILLIN/TAZOBACTAM SOD 2.25 GM in D5W MINI-BAG PLUS 50 ML IV SCH ×3 (04:44→20:24)
[2022-03-31] MEDS: BUDESONIDE 0.25 MG/2 ML INHALATION SUSPENSION INH SCH ×2 (07:32→19:23)
[2022-03-31] MEDS: SUCROFERRIC OXYHYDROXIDE 500MG CHEW TAB (VELPHORO) PO SCH ×3 (07:46→18:00)
[2022-03-31] MEDS: LACTOBACILLUS ACIDOPHILUS CAP (BACID) PO SCH ×3 (07:46→18:00)
[2022-03-31] MEDS: CHLORHEXIDINE GLUCONATE 0.12 % 15ML UDC (PERIDEX ORAL RINSE) MT SCH ×2 (07:46→20:25)
[2022-03-31] MEDS: HEPARIN SOD (PORCINE) 5000UNITS/ML 1ML VIAL/SYRINGE SQ SCH ×2 (07:46→20:24)
[2022-03-31] MEDS: CARVedilol 6.25 MG TAB PO SCH ×2 (07:47→20:24)
[2022-03-31] MEDS: PANTOPRAZOLE 40MG VIAL IV SCH (07:47)
[2022-03-31] MEDS: GABAPENTIN 100 MG CAP PO SCH (07:47)
[2022-03-31] MEDS: LEVEMIR (INSULIN DETEMIR) 1 UNITS/0.01ML SC SCH ×2 (07:48→20:42)
[2022-03-31] MEDS: HYDROcodone/APAP LIQUID 7.5-325MG 15ML UDC (LORTAB ELIXIR) PO PRN (07:50)
[2022-03-31] MEDS: LACTIC ACID 12% LOTION 225 GM BTL TOP SCH (07:51)
[2022-03-31 08:39] LABS: HEMATOCRIT 28.6 % (42.0-52.0); MEAN CORPUSCULAR HEMOGLOBIN 29.8 pg (27.0-33.0); MEAN CORPUSCULAR HGB CONC 31.5 g/dl (32.0-36.5); MEAN CORPUSCULAR VOLUME 94.7 fl (80.0-96.0); PLATELET COUNT, AUTOMATED 240 10^3/uL (150-450); RED BLOOD COUNT 3.02 10^6/uL (4.30-6.10)
[2022-03-31 09:32] LABS: ALBUMIN 1.6 GM/DL (3.2-5.2); CREATININE FOR GFR 3.88 MG/DL (0.70-1.30); GLOMERULAR FILTRATION RATE 17.3 (>56); PHOSPHORUS LEVEL 5.7 MG/DL (2.5-4.9); POTASSIUM SERUM 4.2 MEQ/L (3.5-5.1)
[2022-03-31 09:35] LABS: ABG BASE EXCESS 1.1 (-2.0-2.0); ABG HCO3 25.3 MEQ/L (22.0-26.0); ABG O2 SATURATION 97.9 % (95.0-99.0); ABG PARTIAL PRESSURE CO2 38.5 mmHg (35.0-45.0); ABG PARTIAL PRESSURE O2 112.9 mmHg (75.0-100.0); ABG STANDARD HCO3 25.5 MEQ/L (22.0-26.0); ABG TOTAL CO2 26.5 MEQ/L (22.0-29.0); ABG pH (ARTERIAL) 7.436 UNITS (7.350-7.450)
[2022-03-31] MEDS ORDERED: SODIUM CHLORIDE 0.9% INJ 10 ML SYR IV PRN (12:20)
[2022-03-31] MEDS: predniSONE 20 MG TAB PO SCH (12:33)
[2022-03-31] MEDS: SODIUM CHLORIDE 0.9% INJ 10 ML SYR IV SCH ×2 (13:54→21:30)
[2022-03-31] MEDS ORDERED: KETOROLAC 30 MG/ML 1ML VIAL IV PRN (17:30)
[2022-04-01] VITALS (8 sets, daily range): BP systolic 133–178; BP diastolic 53–80; O2SAT 98
[2022-04-01] MEDS: IPRATROPIUM 0.5MG/ALBUTEROL 2.5MG INH SOL UD 3ML (DUONEB) NEB SCH ×5 (03:10→19:07)
[2022-04-01] MEDS: PIPERACILLIN/TAZOBACTAM SOD 2.25 GM in D5W MINI-BAG PLUS 50 ML IV SCH ×3 (05:09→20:24)
[2022-04-01] MEDS: HumaLOG INSULIN (NovoLOG) PER UNIT SC SCH ×4 (06:00→20:25)
[2022-04-01] MEDS: SODIUM CHLORIDE 0.9% INJ 10 ML SYR IV SCH ×3 (06:28→21:53)
[2022-04-01] MEDS: BUDESONIDE 0.25 MG/2 ML INHALATION SUSPENSION INH SCH ×2 (07:08→19:07)
[2022-04-01 07:50] LABS: BASO % 0.1 % (0.0-1.0); EOS % 0.1 % (0.0-3.0); HEMATOCRIT 26.9 % (42.0-52.0); HEMOGLOBIN 8.2 g/dl (13.5-17.5); LYMPH # 0.5 10^3/uL (1.5-5.0); LYMPH % 6.8 % (24.0-44.0); MEAN CORPUSCULAR HEMOGLOBIN 29.2 pg (27.0-33.0); MEAN CORPUSCULAR HGB CONC 30.5 g/dl (32.0-36.5); MEAN CORPUSCULAR VOLUME 95.7 fl (80.0-96.0); MONO # 0.4 10^3/uL (0.0-0.8); MONO % 4.5 % (2.0-8.0); NEUTROPHILS # 6.7 10^3/uL (1.5-8.5); NEUTROPHILS % 86.7 % (36.0-66.0); PLATELET COUNT, AUTOMATED 186 10^3/uL (150-450); RED BLOOD COUNT 2.81 10^6/uL (4.30-6.10); WHITE BLOOD COUNT 7.8 10^3/uL (4.0-10.0)
[2022-04-01 08:18] LABS: CREATININE FOR GFR 5.09 MG/DL (0.70-1.30); GLOMERULAR FILTRATION RATE 12.7 (>56)
[2022-04-01] MEDS: LEVEMIR (INSULIN DETEMIR) 1 UNITS/0.01ML SC SCH ×3 (08:47→20:25)
[2022-04-01] MEDS: PANTOPRAZOLE 40MG VIAL IV SCH (08:57)
[2022-04-01] MEDS: LACTOBACILLUS ACIDOPHILUS CAP (BACID) PO SCH ×3 (08:57→17:34)
[2022-04-01] MEDS: SUCROFERRIC OXYHYDROXIDE 500MG CHEW TAB (VELPHORO) PO SCH ×3 (08:57→17:36)
[2022-04-01] MEDS: HEPARIN SOD (PORCINE) 5000UNITS/ML 1ML VIAL/SYRINGE SQ SCH (08:57)
[2022-04-01] MEDS: CARVedilol 6.25 MG TAB PO SCH ×2 (08:58→20:25)
[2022-04-01] MEDS: predniSONE 20 MG TAB PO SCH (08:58)
[2022-04-01] MEDS: GABAPENTIN 100 MG CAP PO SCH (08:58)
[2022-04-01] MEDS: CLOPIDOGREL 75 MG TAB PO SCH (10:20)
[2022-04-01] MEDS: SENOKOT S TAB PO SCH ×2 (10:21→20:25)
[2022-04-01] MEDS: LACTIC ACID 12% LOTION 225 GM BTL TOP SCH (10:21)
[2022-04-01] MEDS ORDERED: DARBEPOETIN 200MCG/0.4ML *DIALYSIS* SYRINGE (J0882 PER 1MCG) IV SCH (19:20)
[2022-04-01] MEDS: APIXABAN 2.5 MG TAB (ELIQUIS) PO SCH (20:24)
[2022-04-02] VITALS: BP 157/72
[2022-04-02 04:00] VITALS: BP 171/74
[2022-04-02] MEDS: PIPERACILLIN/TAZOBACTAM SOD 2.25 GM in D5W MINI-BAG PLUS 50 ML IV SCH ×2 (04:13→12:01)
[2022-04-02] MEDS: IPRATROPIUM 0.5MG/ALBUTEROL 2.5MG INH SOL UD 3ML (DUONEB) NEB SCH ×5 (04:45→19:42)
[2022-04-02] MEDS: SODIUM CHLORIDE 0.9% INJ 10 ML SYR IV SCH ×3 (05:08→21:39)
[2022-04-02 05:19] LABS: BASO % 0.1 % (0.0-1.0); HEMATOCRIT 25.7 % (42.0-52.0); HEMOGLOBIN 7.9 g/dl (13.5-17.5); LYMPH # 0.5 10^3/uL (1.5-5.0); LYMPH % 6.4 % (24.0-44.0); MEAN CORPUSCULAR HEMOGLOBIN 29.3 pg (27.0-33.0); MEAN CORPUSCULAR HGB CONC 30.7 g/dl (32.0-36.5); MEAN CORPUSCULAR VOLUME 95.2 fl (80.0-96.0); MONO # 0.4 10^3/uL (0.0-0.8); MONO % 4.8 % (2.0-8.0); NEUTROPHILS # 6.8 10^3/uL (1.5-8.5); NEUTROPHILS % 86.5 % (36.0-66.0); PLATELET COUNT, AUTOMATED 167 10^3/uL (150-450); WHITE BLOOD COUNT 7.8 10^3/uL (4.0-10.0)
[2022-04-02 05:38] LABS: ABG BASE EXCESS -4.4 (-2.0-2.0); ABG HCO3 21.6 MEQ/L (22.0-26.0); ABG O2 SATURATION 96.7 % (95.0-99.0); ABG PARTIAL PRESSURE CO2 43.8 mmHg (35.0-45.0); ABG PARTIAL PRESSURE O2 99.8 mmHg (75.0-100.0); ABG STANDARD HCO3 20.8 MEQ/L (22.0-26.0); ABG pH (ARTERIAL) 7.311 UNITS (7.350-7.450)
[2022-04-02 05:55] LABS: CALCIUM LEVEL 7.7 MG/DL (8.5-10.1); CREATININE FOR GFR 6.14 MG/DL (0.70-1.30); GLOMERULAR FILTRATION RATE 10.2 (>56); PERCENT SATURATION 84.4 % (19.7-50.0); VANCOMYCIN RANDOM 14.3 UG/ML
[2022-04-02] MEDS: BUDESONIDE 0.25 MG/2 ML INHALATION SUSPENSION INH SCH ×2 (07:44→19:41)
[2022-04-02 08:09] VITALS: BP 123/56
[2022-04-02] MEDS: CLOPIDOGREL 75 MG TAB PO SCH (08:46)
[2022-04-02] MEDS: LACTOBACILLUS ACIDOPHILUS CAP (BACID) PO SCH ×3 (08:46→18:19)
[2022-04-02] MEDS: SUCROFERRIC OXYHYDROXIDE 500MG CHEW TAB (VELPHORO) PO SCH ×3 (08:46→18:00)
[2022-04-02] MEDS: APIXABAN 2.5 MG TAB (ELIQUIS) PO SCH ×2 (08:46→21:38)
[2022-04-02] MEDS: LEVEMIR (INSULIN DETEMIR) 1 UNITS/0.01ML SC SCH ×2 (08:47→21:38)
[2022-04-02] MEDS: HumaLOG INSULIN (NovoLOG) PER UNIT SC SCH ×4 (08:47→20:09)
[2022-04-02] MEDS: PANTOPRAZOLE 40MG VIAL IV SCH (08:47)
[2022-04-02] MEDS: CARVedilol 6.25 MG TAB PO SCH ×2 (08:47→21:38)
[2022-04-02] MEDS: predniSONE 20 MG TAB PO SCH (08:47)
[2022-04-02] MEDS: GABAPENTIN 100 MG CAP PO SCH (08:48)
[2022-04-02] MEDS: SENOKOT S TAB PO SCH ×2 (08:48→21:38)
[2022-04-02] MEDS: LACTIC ACID 12% LOTION 225 GM BTL TOP SCH (08:49)
[2022-04-02] MEDS ORDERED: SODIUM CHLORIDE 0.9% 1000ML IV PRN (09:30)
[2022-04-02 11:54] VITALS: BP 116/51
[2022-04-02] MEDS ORDERED: VANCOMYCIN HCL 750 MG, VIAL MATE ADAPTER 1 EACH in NS 250 ML IV SCH (12:00)
[2022-04-02 17:30] VITALS: BP 120/56
[2022-04-02 19:36] VITALS: BP 172/72
[2022-04-03] VITALS: BP 144/65
[2022-04-03] MEDS: IPRATROPIUM 0.5MG/ALBUTEROL 2.5MG INH SOL UD 3ML (DUONEB) NEB SCH ×5 (00:32→15:12)
[2022-04-03 04:00] VITALS: BP 146/69
[2022-04-03 05:08] LABS: BASO % 0.1 % (0.0-1.0); EOS % 0.1 % (0.0-3.0); HEMOGLOBIN 8.1 g/dl (13.5-17.5); LYMPH # 0.8 10^3/uL (1.5-5.0); MEAN CORPUSCULAR HEMOGLOBIN 29.1 pg (27.0-33.0); MEAN CORPUSCULAR HGB CONC 31.2 g/dl (32.0-36.5); MEAN CORPUSCULAR VOLUME 93.5 fl (80.0-96.0); MONO # 0.5 10^3/uL (0.0-0.8); MONO % 5.8 % (2.0-8.0); NEUTROPHILS # 6.6 10^3/uL (1.5-8.5); NEUTROPHILS % 82.4 % (36.0-66.0); PLATELET COUNT, AUTOMATED 159 10^3/uL (150-450); RED BLOOD COUNT 2.78 10^6/uL (4.30-6.10)
[2022-04-03 05:30] LABS: CREATININE FOR GFR 4.43 MG/DL (0.70-1.30); GLOMERULAR FILTRATION RATE 14.9 (>56); POTASSIUM SERUM 4.6 MEQ/L (3.5-5.1)
[2022-04-03] MEDS: SODIUM CHLORIDE 0.9% INJ 10 ML SYR IV SCH ×2 (05:33→15:38)
[2022-04-03 06:09] LABS: ABG BASE EXCESS -3.4 (-2.0-2.0); ABG HCO3 21.4 MEQ/L (22.0-26.0); ABG O2 SATURATION 95.6 % (95.0-99.0); ABG PARTIAL PRESSURE CO2 37.3 mmHg (35.0-45.0); ABG STANDARD HCO3 21.6 MEQ/L (22.0-26.0); ABG TOTAL CO2 22.5 MEQ/L (22.0-29.0); ABG pH (ARTERIAL) 7.376 UNITS (7.350-7.450)
[2022-04-03] MEDS: BUDESONIDE 0.25 MG/2 ML INHALATION SUSPENSION INH SCH (07:05)
[2022-04-03 07:14] VITALS: BP 126/56
[2022-04-03] MEDS ORDERED: GABA-1171 PO (08:48)
[2022-04-03] MEDS ORDERED: INSUDET SC (08:48)
[2022-04-03] MEDS: HumaLOG INSULIN (NovoLOG) PER UNIT SC SCH ×2 (08:57→12:37)
[2022-04-03] MEDS: PANTOPRAZOLE 40MG VIAL IV SCH (08:57)
[2022-04-03] MEDS: SUCROFERRIC OXYHYDROXIDE 500MG CHEW TAB (VELPHORO) PO SCH ×2 (08:57→12:37)
[2022-04-03] MEDS: LEVEMIR (INSULIN DETEMIR) 1 UNITS/0.01ML SC SCH (08:57)
[2022-04-03] MEDS: SENOKOT S TAB PO SCH (08:57)
[2022-04-03] MEDS: LACTOBACILLUS ACIDOPHILUS CAP (BACID) PO SCH ×2 (08:57→12:37)
[2022-04-03] MEDS: GABAPENTIN 100 MG CAP PO SCH (08:58)
[2022-04-03] MEDS: CLOPIDOGREL 75 MG TAB PO SCH (08:58)
[2022-04-03] MEDS: predniSONE 20 MG TAB PO SCH (08:58)
[2022-04-03] MEDS: APIXABAN 2.5 MG TAB (ELIQUIS) PO SCH (08:58)
[2022-04-03 08:59] VITALS: BP 130/62
[2022-04-03] MEDS: CARVedilol 6.25 MG TAB PO SCH (08:59)
[2022-04-03] MEDS: LACTIC ACID 12% LOTION 225 GM BTL TOP SCH (09:03)
[2022-04-03] MEDS ORDERED: NEOSPORIN OINT 0.9 GM PKT TOP ONE (11:50)
[2022-04-03 11:57] VITALS: BP 128/4
== END 2022-04-03 17:21 | DRG 239 ==
LOC: M ED 18:21 → EDBD 18:21 → M ED INP 03-23 02:17 → ENRESERV 03-23 02:38 → M MS5PR 03-23 03:05 → M ICU 03-25 10:30 → M PCU 04-02 17:29
PROVIDERS: ADMIT Family Medicine; ATTEND Internal Medicine
PROC: 30233N1 Transfusion of Nonautologous Red Blood Cells into Peripheral Vein, Percutaneous Approach (ICD-10-PCS; 2022-03-23)
PROC: 5A1D70Z Performance of Urinary Filtration, Intermittent, Less than 6 Hours Per Day (ICD-10-PCS; 2022-03-23)
PROC: 0Y6H0Z2 Detachment at Right Lower Leg, Mid, Open Approach (ICD-10-PCS; principal; 2022-03-24 08:00)
PROC: 5A1955Z Respiratory Ventilation, Greater than 96 Consecutive Hours (ICD-10-PCS; 2022-03-25)
PROC: 0Y6C0Z2 Detachment at Right Upper Leg, Mid, Open Approach (ICD-10-PCS; 2022-03-28)
DX: E11.52 Type 2 diabetes mellitus with diabetic peripheral angiopathy with gangrene (principal); G93.41 Metabolic encephalopathy; J96.02 Acute respiratory failure with hypercapnia; J69.0 Pneumonitis due to inhalation of food and vomit; M72.6 Necrotizing fasciitis; N18.6 End stage renal disease; J90 Pleural effusion, not elsewhere classified; I48.92 Unspecified atrial flutter; I13.2 Hypertensive heart and chronic kidney disease with heart failure and with stage 5 chronic kidney disease, or end stage renal disease; I50.42 Chronic combined systolic (congestive) and diastolic (congestive) heart failure; M86.9 Osteomyelitis, unspecified; J45.901 Unspecified asthma with (acute) exacerbation; N25.81 Secondary hyperparathyroidism of renal origin; E11.621 Type 2 diabetes mellitus with foot ulcer; I89.0 Lymphedema, not elsewhere classified; I25.10 Atherosclerotic heart disease of native coronary artery without angina pectoris; Z99.2 Dependence on renal dialysis; E11.22 Type 2 diabetes mellitus with diabetic chronic kidney disease; D63.8 Anemia in other chronic diseases classified elsewhere; K21.9 Gastro-esophageal reflux disease without esophagitis; E11.40 Type 2 diabetes mellitus with diabetic neuropathy, unspecified; Z89.519 Acquired absence of unspecified leg below knee; I50.810 Right heart failure, unspecified; Z79.4 Long term (current) use of insulin; I27.20 Pulmonary hypertension, unspecified; I48.91 Unspecified atrial fibrillation; Z79.899 Other long term (current) drug therapy; Z88.6 Allergy status to analgesic agent; Z91.018 Allergy to other foods; Z91.19 Patient's noncompliance with other medical treatment and regimen

== ENCOUNTER 2022-04-03 11:12 | Inpatient (IN) | payer MEDICARE, MEDICAID ==
[~2022-04-03] VITALS: Ht 190.5 cm; Wt 117.0 kg
[~2022-04-03 11:12] MED LIST changes: +ALBU8.5H INH; +GABA-1171 PO; +HYDR-3910 PO; +INSUHUMDS SC; +VANC1PLA7 IV
[2022-04-03] MEDS ORDERED: GLUCAGON INJ 1MG VIAL SC PRN (16:35)
[2022-04-03] MEDS ORDERED: ALBUTEROL 90 MCG/ACT 8GM HFA INHALER INH PRN (16:35)
[2022-04-03] MEDS ORDERED: GLUCOSE 4GM CHEW TABLET PO PRN (16:35)
[2022-04-03] MEDS ORDERED: MIRALAX *UNIT DOSE* 17GM PACKET PO PRN (16:35)
[2022-04-03] MEDS ORDERED: DEXTROSE 50% 50 ML SYRINGE IV PRN (16:35)
[2022-04-03 18:00] VITALS: BP 192/94
[2022-04-03] MEDS: SUCROFERRIC OXYHYDROXIDE 500MG CHEW TAB (VELPHORO) PO SCH (18:00)
[2022-04-03] MEDS: LACTOBACILLUS ACIDOPHILUS CAP (BACID) PO SCH ×2 (18:45→20:25)
[2022-04-03] MEDS: INSULIN LISPRO (NovoLOG) PER UNIT SC SCH ×2 (18:45→22:55)
[2022-04-03 18:50] VITALS: BP 173/81
[2022-04-03] MEDS: BUDESONIDE 0.25 MG/2 ML INHALATION SUSPENSION INH SCH (20:07)
[2022-04-03] MEDS: ADVAIR HFA 230/21MCG INHALER INH SCH (20:08)
[2022-04-03] MEDS: PANTOPRAZOLE 40MG TAB (PROTONIX) PO SCH (20:26)
[2022-04-03] MEDS: **hydrALAZINE HCL** 25 MG TAB PO SCH (20:26)
[2022-04-03] MEDS: DOCUSATE SODIUM 100MG CAPSULE PO SCH (20:27)
[2022-04-03] MEDS: ACETAMINOPHEN 500 MG TAB PO SCH (20:27)
[2022-04-03] MEDS: APIXABAN 2.5 MG TAB (ELIQUIS) PO SCH (20:27)
[2022-04-03] MEDS: SENNA 8.6 MG TAB (SENOKOT) PO SCH (20:27)
[2022-04-03] MEDS: hydrOXYzine 25 MG TAB PO SCH (20:27)
[2022-04-03] MEDS: CARVedilol 6.25 MG TAB PO SCH (20:27)
[2022-04-03 21:00] VITALS: BP 178/78
[2022-04-03] MEDS: LEVEMIR (INSULIN DETEMIR) 1 UNITS/0.01ML SC SCH (22:56)
[2022-04-03 23:05] VITALS: BP 140/72
[2022-04-04 06:00] VITALS: BP 173/74
[2022-04-04] MEDS ORDERED: SODIUM CHLORIDE 0.9% 1000ML IV PRN (06:00)
[2022-04-04] MEDS: ADVAIR HFA 230/21MCG INHALER INH SCH ×2 (06:59→20:00)
[2022-04-04] MEDS: BUDESONIDE 0.25 MG/2 ML INHALATION SUSPENSION INH SCH ×2 (07:00→20:00)
[2022-04-04] MEDS: DOCUSATE SODIUM 100MG CAPSULE PO SCH ×2 (07:23→20:21)
[2022-04-04] MEDS: SUCROFERRIC OXYHYDROXIDE 500MG CHEW TAB (VELPHORO) PO SCH ×3 (07:31→17:11)
[2022-04-04] MEDS: ACETAMINOPHEN 500 MG TAB PO SCH ×3 (07:32→20:23)
[2022-04-04] MEDS: LEVEMIR (INSULIN DETEMIR) 1 UNITS/0.01ML SC SCH ×2 (07:33→20:20)
[2022-04-04] MEDS: TORSEMIDE 20 MG TAB PO SCH (07:33)
[2022-04-04] MEDS: LACTOBACILLUS ACIDOPHILUS CAP (BACID) PO SCH ×4 (07:33→20:21)
[2022-04-04] MEDS: INSULIN LISPRO (NovoLOG) PER UNIT SC SCH ×4 (07:33→20:20)
[2022-04-04] MEDS: predniSONE 20 MG TAB PO SCH (07:34)
[2022-04-04] MEDS: CLOPIDOGREL 75 MG TAB PO SCH (07:34)
[2022-04-04] MEDS: GABAPENTIN 100 MG CAP PO SCH (07:34)
[2022-04-04] MEDS: APIXABAN 2.5 MG TAB (ELIQUIS) PO SCH ×2 (07:34→20:22)
[2022-04-04] MEDS: **hydrALAZINE HCL** 25 MG TAB PO SCH ×3 (07:34→20:25)
[2022-04-04] MEDS: PANTOPRAZOLE 40MG TAB (PROTONIX) PO SCH ×2 (07:34→20:21)
[2022-04-04] MEDS: CARVedilol 6.25 MG TAB PO SCH ×2 (07:34→20:25)
[2022-04-04] MEDS: LACTIC ACID 12% LOTION 225 GM BTL TOP SCH (07:35)
[2022-04-04 08:07] LABS: BASO % 0.3 % (0.0-1.0); EOS % 0.1 % (0.0-3.0); HEMATOCRIT 26.7 % (42.0-52.0); HEMOGLOBIN 8.4 g/dl (13.5-17.5); LYMPH # 0.7 10^3/uL (1.5-5.0); LYMPH % 10.4 % (24.0-44.0); MEAN CORPUSCULAR HEMOGLOBIN 29.8 pg (27.0-33.0); MEAN CORPUSCULAR HGB CONC 31.5 g/dl (32.0-36.5); MEAN CORPUSCULAR VOLUME 94.7 fl (80.0-96.0); MONO # 0.6 10^3/uL (0.0-0.8); MONO % 7.7 % (2.0-8.0); NEUTROPHILS # 5.6 10^3/uL (1.5-8.5); NEUTROPHILS % 78.8 % (36.0-66.0); PLATELET COUNT, AUTOMATED 158 10^3/uL (150-450); RED BLOOD COUNT 2.82 10^6/uL (4.30-6.10); WHITE BLOOD COUNT 7.1 10^3/uL (4.0-10.0)
[2022-04-04 08:27] VITALS: BP 169/72
[2022-04-04 08:33] LABS: BILIRUBIN,TOTAL 0.5 MG/DL (0.2-1.0); CALCIUM LEVEL 8.1 MG/DL (8.5-10.1); CREATININE FOR GFR 5.99 MG/DL (0.70-1.30); GLOMERULAR FILTRATION RATE 10.5 (>56); POTASSIUM SERUM 5.1 MEQ/L (3.5-5.1); TOTAL PROTEIN 5.6 GM/DL (6.4-8.2)
[2022-04-04] MEDS ORDERED: DARBEPOETIN 200MCG/0.4ML *DIALYSIS* SYRINGE (J0882 PER 1MCG) IV SCH (12:05)
[2022-04-04] MEDS ORDERED: PILL CUTTER 1 EACH XX PRN (16:35)
[2022-04-04 16:50] VITALS: BP 138/65
[2022-04-04 20:00] VITALS: BP 160/88
[2022-04-04] MEDS: oxyCODONE 5MG TAB PO PRN (20:19)
[2022-04-04] MEDS: RAMELTEON 8 MG TAB (ROZEREM) PO SCH (20:21)
[2022-04-04] MEDS: hydrOXYzine 25 MG TAB PO SCH (20:22)
[2022-04-04] MEDS: SENNA 8.6 MG TAB (SENOKOT) PO SCH (20:22)
[2022-04-05] MEDS: oxyCODONE 5MG TAB PO PRN (05:44)
[2022-04-05 06:00] VITALS: BP 148/88
[2022-04-05 06:57] LABS: BASO % 0.2 % (0.0-1.0); EOS % 0.1 % (0.0-3.0); HEMATOCRIT 22.8 % (42.0-52.0); HEMOGLOBIN 7.3 g/dl (13.5-17.5); MEAN CORPUSCULAR HEMOGLOBIN 29.6 pg (27.0-33.0); MEAN CORPUSCULAR VOLUME 92.3 fl (80.0-96.0); MONO # 0.9 10^3/uL (0.0-0.8); NEUTROPHILS # 10.4 10^3/uL (1.5-8.5); NEUTROPHILS % 82.7 % (36.0-66.0); PLATELET COUNT, AUTOMATED 173 10^3/uL (150-450); RED BLOOD COUNT 2.47 10^6/uL (4.30-6.10); WHITE BLOOD COUNT 12.6 10^3/uL (4.0-10.0)
[2022-04-05] MEDS: BUDESONIDE 0.25 MG/2 ML INHALATION SUSPENSION INH SCH ×2 (07:33→19:22)
[2022-04-05] MEDS: ADVAIR HFA 230/21MCG INHALER INH SCH ×2 (07:33→19:22)
[2022-04-05] MEDS: INSULIN LISPRO (NovoLOG) PER UNIT SC SCH ×4 (08:32→20:20)
[2022-04-05] MEDS: LACTOBACILLUS ACIDOPHILUS CAP (BACID) PO SCH ×4 (08:32→20:17)
[2022-04-05] MEDS: LEVEMIR (INSULIN DETEMIR) 1 UNITS/0.01ML SC SCH ×2 (08:32→20:20)
[2022-04-05] MEDS: APIXABAN 2.5 MG TAB (ELIQUIS) PO SCH ×2 (08:33→20:18)
[2022-04-05] MEDS: GABAPENTIN 100 MG CAP PO SCH (08:33)
[2022-04-05] MEDS: TORSEMIDE 20 MG TAB PO SCH (08:33)
[2022-04-05] MEDS: CARVedilol 6.25 MG TAB PO SCH ×2 (08:33→20:19)
[2022-04-05] MEDS: PANTOPRAZOLE 40MG TAB (PROTONIX) PO SCH ×2 (08:33→20:17)
[2022-04-05] MEDS: predniSONE 20 MG TAB PO SCH (08:33)
[2022-04-05] MEDS: **hydrALAZINE HCL** 25 MG TAB PO SCH ×3 (08:33→20:19)
[2022-04-05] MEDS: ACETAMINOPHEN 500 MG TAB PO SCH ×3 (08:34→20:18)
[2022-04-05] MEDS: DOCUSATE SODIUM 100MG CAPSULE PO SCH ×2 (08:34→20:17)
[2022-04-05] MEDS: SUCROFERRIC OXYHYDROXIDE 500MG CHEW TAB (VELPHORO) PO SCH ×3 (08:34→17:00)
[2022-04-05] MEDS: CLOPIDOGREL 75 MG TAB PO SCH (08:34)
[2022-04-05] MEDS: LACTIC ACID 12% LOTION 225 GM BTL TOP SCH (08:34)
[2022-04-05] MEDS ORDERED: oxyCODONE 5MG TAB PO ONE (09:25)
[2022-04-05] MEDS: NORTRIPTYLINE 10 MG CAP PO SCH (10:37)
[2022-04-05 14:00] VITALS: BP 148/84
[2022-04-05 16:32] VITALS: BP 136/92
[2022-04-05 17:26] LABS: HEMOGLOBIN 7.3 g/dl (13.5-17.5)
[2022-04-05 20:00] VITALS: BP 138/80
[2022-04-05] MEDS: RAMELTEON 8 MG TAB (ROZEREM) PO SCH (20:17)
[2022-04-05] MEDS: SENNA 8.6 MG TAB (SENOKOT) PO SCH (20:18)
[2022-04-05] MEDS: hydrOXYzine 25 MG TAB PO SCH (20:19)
[2022-04-06] MEDS: oxyCODONE 5MG TAB PO PRN (04:07)
[2022-04-06 06:00] VITALS: BP 131/67
[2022-04-06] MEDS ORDERED: SODIUM CHLORIDE 0.9% 1000ML IV PRN ×2 (06:00)
[2022-04-06] MEDS: BUDESONIDE 0.25 MG/2 ML INHALATION SUSPENSION INH SCH ×2 (07:04→20:23)
[2022-04-06] MEDS: ADVAIR HFA 230/21MCG INHALER INH SCH ×2 (07:04→20:23)
[2022-04-06] MEDS: LACTOBACILLUS ACIDOPHILUS CAP (BACID) PO SCH ×4 (08:16→22:05)
[2022-04-06] MEDS: SUCROFERRIC OXYHYDROXIDE 500MG CHEW TAB (VELPHORO) PO SCH ×3 (08:16→18:03)
[2022-04-06] MEDS: INSULIN LISPRO (NovoLOG) PER UNIT SC SCH ×4 (08:17→22:06)
[2022-04-06] MEDS: GABAPENTIN 100 MG CAP PO SCH (08:17)
[2022-04-06] MEDS: DOCUSATE SODIUM 100MG CAPSULE PO SCH (08:17)
[2022-04-06] MEDS: predniSONE 20 MG TAB PO SCH (08:18)
[2022-04-06] MEDS: ACETAMINOPHEN 500 MG TAB PO SCH ×3 (08:18→22:05)
[2022-04-06] MEDS: APIXABAN 2.5 MG TAB (ELIQUIS) PO SCH ×2 (08:18→22:05)
[2022-04-06] MEDS: NORTRIPTYLINE 10 MG CAP PO SCH (08:19)
[2022-04-06] MEDS: PANTOPRAZOLE 40MG TAB (PROTONIX) PO SCH ×2 (08:19→22:05)
[2022-04-06] MEDS: TORSEMIDE 20 MG TAB PO SCH (08:19)
[2022-04-06] MEDS: **hydrALAZINE HCL** 25 MG TAB PO SCH ×3 (08:20→22:04)
[2022-04-06] MEDS: CARVedilol 6.25 MG TAB PO SCH ×2 (08:20→22:05)
[2022-04-06] MEDS: LACTIC ACID 12% LOTION 225 GM BTL TOP SCH (08:21)
[2022-04-06] MEDS: LEVEMIR (INSULIN DETEMIR) 1 UNITS/0.01ML SC SCH ×2 (08:21→22:07)
[2022-04-06 08:46] LABS: BASO % 0.1 % (0.0-1.0); EOS % 0.2 % (0.0-3.0); HEMATOCRIT 25.3 % (42.0-52.0); HEMOGLOBIN 7.9 g/dl (13.5-17.5); LYMPH # 1.8 10^3/uL (1.5-5.0); LYMPH % 10.6 % (24.0-44.0); MEAN CORPUSCULAR HEMOGLOBIN 30.5 pg (27.0-33.0); MEAN CORPUSCULAR HGB CONC 31.2 g/dl (32.0-36.5); MEAN CORPUSCULAR VOLUME 97.7 fl (80.0-96.0); MONO # 1.3 10^3/uL (0.0-0.8); MONO % 7.7 % (2.0-8.0); NEUTROPHILS # 13.7 10^3/uL (1.5-8.5); NEUTROPHILS % 79.7 % (36.0-66.0); PLATELET COUNT, AUTOMATED 195 10^3/uL (150-450); RED BLOOD COUNT 2.59 10^6/uL (4.30-6.10); WHITE BLOOD COUNT 17.2 10^3/uL (4.0-10.0)
[2022-04-06 08:56] LABS: CALCIUM LEVEL 8.3 MG/DL (8.5-10.1); CREATININE FOR GFR 4.96 MG/DL (0.70-1.30); GLOMERULAR FILTRATION RATE 13.1 (>56); POTASSIUM SERUM 4.9 MEQ/L (3.5-5.1)
[2022-04-06] MEDS ORDERED: traMADol 50 MG TAB PO PRN (12:25)
[2022-04-06] MEDS ORDERED: GABAPENTIN 100 MG CAP PO ONE (13:00)
[2022-04-06 14:00] VITALS: BP 140/80
[2022-04-06] MEDS ORDERED: LOPERAMIDE 2 MG CAPLET PO PRN (16:20)
[2022-04-06] MEDS ORDERED: LOPERAMIDE 2 MG CAPLET PO ONE (16:20)
[2022-04-06 20:00] VITALS: BP 130/78
[2022-04-06] MEDS: hydrOXYzine 25 MG TAB PO SCH (22:03)
[2022-04-06] MEDS: RAMELTEON 8 MG TAB (ROZEREM) PO SCH (22:06)
[2022-04-07] VITALS (12 sets, daily range): BP systolic 91–166; BP diastolic 44–82
[2022-04-07] MEDS ORDERED: SODIUM CHLORIDE 0.9% 1000ML IV PRN (06:00)
[2022-04-07] MEDS: SUCROFERRIC OXYHYDROXIDE 500MG CHEW TAB (VELPHORO) PO SCH ×3 (06:17→17:59)
[2022-04-07] MEDS: NORTRIPTYLINE 10 MG CAP PO SCH (06:17)
[2022-04-07] MEDS: **hydrALAZINE HCL** 25 MG TAB PO SCH ×3 (06:18→22:19)
[2022-04-07] MEDS: ACETAMINOPHEN 500 MG TAB PO SCH ×3 (06:18→22:21)
[2022-04-07] MEDS: CARVedilol 6.25 MG TAB PO SCH ×2 (06:19→22:19)
[2022-04-07] MEDS: TORSEMIDE 20 MG TAB PO SCH (06:19)
[2022-04-07] MEDS: PANTOPRAZOLE 40MG TAB (PROTONIX) PO SCH ×2 (06:20→22:21)
[2022-04-07] MEDS: APIXABAN 2.5 MG TAB (ELIQUIS) PO SCH ×2 (06:20→22:21)
[2022-04-07] MEDS: LACTOBACILLUS ACIDOPHILUS CAP (BACID) PO SCH ×4 (06:24→22:18)
[2022-04-07] MEDS: traMADol 50 MG TAB PO PRN ×2 (06:58→22:27)
[2022-04-07] MEDS: ADVAIR HFA 230/21MCG INHALER INH SCH ×2 (07:03→20:00)
[2022-04-07] MEDS: BUDESONIDE 0.25 MG/2 ML INHALATION SUSPENSION INH SCH ×2 (07:03→20:00)
[2022-04-07] MEDS: predniSONE 20 MG TAB PO SCH (07:06)
[2022-04-07] MEDS: GABAPENTIN 100 MG CAP PO SCH (07:06)
[2022-04-07] MEDS: INSULIN LISPRO (NovoLOG) PER UNIT SC SCH ×4 (08:18→21:00)
[2022-04-07] MEDS: LEVEMIR (INSULIN DETEMIR) 1 UNITS/0.01ML SC SCH ×2 (08:18→22:23)
[2022-04-07] MEDS: LACTIC ACID 12% LOTION 225 GM BTL TOP SCH (08:19)
[2022-04-07 13:29] LABS: BASO % 0.1 % (0.0-1.0); HEMATOCRIT 21.2 % (42.0-52.0); LYMPH # 0.8 10^3/uL (1.5-5.0); LYMPH % 4.4 % (24.0-44.0); MEAN CORPUSCULAR HEMOGLOBIN 30.2 pg (27.0-33.0); MEAN CORPUSCULAR HGB CONC 30.7 g/dl (32.0-36.5); MEAN CORPUSCULAR VOLUME 98.6 fl (80.0-96.0); MONO # 0.7 10^3/uL (0.0-0.8); MONO % 4.2 % (2.0-8.0); NEUTROPHILS # 15.5 10^3/uL (1.5-8.5); NEUTROPHILS % 89.6 % (36.0-66.0); PLATELET COUNT, AUTOMATED 211 10^3/uL (150-450); RED BLOOD COUNT 2.15 10^6/uL (4.30-6.10); WHITE BLOOD COUNT 17.3 10^3/uL (4.0-10.0)
[2022-04-07 13:33] LABS: HEMOGLOBIN 6.5 g/dl (13.5-17.5)
[2022-04-07] MEDS: RAMELTEON 8 MG TAB (ROZEREM) PO SCH (22:21)
[2022-04-07] MEDS: hydrOXYzine 25 MG TAB PO SCH (22:21)
[2022-04-08 06:00] VITALS: BP 137/65
[2022-04-08] MEDS: ADVAIR HFA 230/21MCG INHALER INH SCH ×2 (07:22→19:42)
[2022-04-08] MEDS: BUDESONIDE 0.25 MG/2 ML INHALATION SUSPENSION INH SCH ×2 (07:22→19:42)
[2022-04-08] MEDS: INSULIN LISPRO (NovoLOG) PER UNIT SC SCH ×4 (07:30→21:00)
[2022-04-08] MEDS: GABAPENTIN 100 MG CAP PO SCH (08:09)
[2022-04-08] MEDS: NORTRIPTYLINE 10 MG CAP PO SCH (08:09)
[2022-04-08] MEDS: PANTOPRAZOLE 40MG TAB (PROTONIX) PO SCH ×2 (08:09→21:02)
[2022-04-08] MEDS: LACTOBACILLUS ACIDOPHILUS CAP (BACID) PO SCH ×4 (08:09→21:03)
[2022-04-08] MEDS: TORSEMIDE 20 MG TAB PO SCH (08:10)
[2022-04-08] MEDS: APIXABAN 2.5 MG TAB (ELIQUIS) PO SCH ×2 (08:10→21:02)
[2022-04-08] MEDS: ACETAMINOPHEN 500 MG TAB PO SCH ×3 (08:10→21:02)
[2022-04-08] MEDS: predniSONE 20 MG TAB PO SCH (08:10)
[2022-04-08] MEDS: SUCROFERRIC OXYHYDROXIDE 500MG CHEW TAB (VELPHORO) PO SCH ×3 (08:10→18:49)
[2022-04-08] MEDS: CARVedilol 6.25 MG TAB PO SCH ×2 (08:10→21:03)
[2022-04-08] MEDS: LEVEMIR (INSULIN DETEMIR) 1 UNITS/0.01ML SC SCH ×2 (08:11→21:02)
[2022-04-08] MEDS: LACTIC ACID 12% LOTION 225 GM BTL TOP SCH (08:19)
[2022-04-08] MEDS: **hydrALAZINE HCL** 25 MG TAB PO SCH ×3 (08:19→21:03)
[2022-04-08 14:00] VITALS: BP 160/75
[2022-04-08] MEDS: traMADol 50 MG TAB PO PRN ×2 (15:55→22:48)
[2022-04-08 20:00] VITALS: BP 158/84
[2022-04-08] MEDS: hydrOXYzine 25 MG TAB PO SCH (21:02)
[2022-04-08] MEDS: RAMELTEON 8 MG TAB (ROZEREM) PO SCH (21:02)
[2022-04-09 06:00] VITALS: BP 137/62
[2022-04-09] MEDS ORDERED: SODIUM CHLORIDE 0.9% 1000ML IV PRN (06:00)
[2022-04-09 06:43] LABS: BASO % 0.1 % (0.0-1.0); EOS % 0.3 % (0.0-3.0); HEMATOCRIT 24.1 % (42.0-52.0); HEMOGLOBIN 7.8 g/dl (13.5-17.5); LYMPH # 1.5 10^3/uL (1.5-5.0); LYMPH % 13.2 % (24.0-44.0); MEAN CORPUSCULAR HEMOGLOBIN 30.8 pg (27.0-33.0); MEAN CORPUSCULAR HGB CONC 32.4 g/dl (32.0-36.5); MEAN CORPUSCULAR VOLUME 95.3 fl (80.0-96.0); MONO # 1.3 10^3/uL (0.0-0.8); NEUTROPHILS # 8.1 10^3/uL (1.5-8.5); NEUTROPHILS % 73.1 % (36.0-66.0); PLATELET COUNT, AUTOMATED 175 10^3/uL (150-450); RED BLOOD COUNT 2.53 10^6/uL (4.30-6.10); WHITE BLOOD COUNT 11.1 10^3/uL (4.0-10.0)
[2022-04-09 06:57] LABS: CALCIUM LEVEL 8.2 MG/DL (8.5-10.1); CREATININE FOR GFR 4.68 MG/DL (0.70-1.30); POTASSIUM SERUM 3.8 MEQ/L (3.5-5.1)
[2022-04-09] MEDS: traMADol 50 MG TAB PO PRN ×2 (07:05→20:29)
[2022-04-09] MEDS: ADVAIR HFA 230/21MCG INHALER INH SCH ×2 (07:16→19:26)
[2022-04-09] MEDS: BUDESONIDE 0.25 MG/2 ML INHALATION SUSPENSION INH SCH ×2 (07:16→19:26)
[2022-04-09] MEDS: INSULIN LISPRO (NovoLOG) PER UNIT SC SCH ×4 (07:30→20:22)
[2022-04-09] MEDS: LEVEMIR (INSULIN DETEMIR) 1 UNITS/0.01ML SC SCH ×2 (08:56→20:22)
[2022-04-09] MEDS: SUCROFERRIC OXYHYDROXIDE 500MG CHEW TAB (VELPHORO) PO SCH ×3 (10:01→18:28)
[2022-04-09] MEDS: GABAPENTIN 100 MG CAP PO SCH ×2 (10:02→22:03)
[2022-04-09] MEDS: LACTOBACILLUS ACIDOPHILUS CAP (BACID) PO SCH ×4 (10:03→20:22)
[2022-04-09] MEDS: TORSEMIDE 20 MG TAB PO SCH (10:03)
[2022-04-09] MEDS: PANTOPRAZOLE 40MG TAB (PROTONIX) PO SCH ×2 (10:03→20:22)
[2022-04-09] MEDS: APIXABAN 2.5 MG TAB (ELIQUIS) PO SCH ×2 (10:03→20:23)
[2022-04-09] MEDS: predniSONE 20 MG TAB PO SCH (10:04)
[2022-04-09] MEDS: NORTRIPTYLINE 10 MG CAP PO SCH (10:04)
[2022-04-09] MEDS: ACETAMINOPHEN 500 MG TAB PO SCH ×3 (10:04→20:23)
[2022-04-09] MEDS: **hydrALAZINE HCL** 25 MG TAB PO SCH ×3 (10:05→20:23)
[2022-04-09] MEDS: CARVedilol 6.25 MG TAB PO SCH ×2 (10:05→20:22)
[2022-04-09] MEDS: LACTIC ACID 12% LOTION 225 GM BTL TOP SCH (10:06)
[2022-04-09] MEDS ORDERED: CALCIUM CARBONATE 500 MG CHEW U/D PO PRN (10:45)
[2022-04-09 20:00] VITALS: BP 141/65
[2022-04-09] MEDS: hydrOXYzine 25 MG TAB PO SCH (20:21)
[2022-04-09] MEDS: RAMELTEON 8 MG TAB (ROZEREM) PO SCH (20:22)
[2022-04-10 06:00] VITALS: BP 138/70
[2022-04-10 06:50] LABS: BASO % 0.1 % (0.0-1.0); EOS % 0.2 % (0.0-3.0); HEMOGLOBIN 7.6 g/dl (13.5-17.5); LYMPH # 1.3 10^3/uL (1.5-5.0); LYMPH % 14.5 % (24.0-44.0); MEAN CORPUSCULAR HEMOGLOBIN 30.8 pg (27.0-33.0); MEAN CORPUSCULAR HGB CONC 31.7 g/dl (32.0-36.5); MEAN CORPUSCULAR VOLUME 97.2 fl (80.0-96.0); MONO # 1.1 10^3/uL (0.0-0.8); MONO % 12.4 % (2.0-8.0); NEUTROPHILS # 6.2 10^3/uL (1.5-8.5); NEUTROPHILS % 70.9 % (36.0-66.0); PLATELET COUNT, AUTOMATED 172 10^3/uL (150-450); RED BLOOD COUNT 2.47 10^6/uL (4.30-6.10); WHITE BLOOD COUNT 8.7 10^3/uL (4.0-10.0)
[2022-04-10] MEDS: BUDESONIDE 0.25 MG/2 ML INHALATION SUSPENSION INH SCH ×2 (08:00→19:52)
[2022-04-10] MEDS: ADVAIR HFA 230/21MCG INHALER INH SCH ×2 (08:00→19:52)
[2022-04-10] MEDS: LACTOBACILLUS ACIDOPHILUS CAP (BACID) PO SCH ×4 (09:02→20:43)
[2022-04-10] MEDS: INSULIN LISPRO (NovoLOG) PER UNIT SC SCH ×4 (09:03→20:44)
[2022-04-10] MEDS: CARVedilol 6.25 MG TAB PO SCH ×2 (09:03→20:42)
[2022-04-10] MEDS: LEVEMIR (INSULIN DETEMIR) 1 UNITS/0.01ML SC SCH ×2 (09:03→20:44)
[2022-04-10] MEDS: TORSEMIDE 20 MG TAB PO SCH (09:04)
[2022-04-10] MEDS: PANTOPRAZOLE 40MG TAB (PROTONIX) PO SCH ×2 (09:04→20:43)
[2022-04-10] MEDS: APIXABAN 2.5 MG TAB (ELIQUIS) PO SCH ×2 (09:04→20:42)
[2022-04-10] MEDS: GABAPENTIN 100 MG CAP PO SCH ×2 (09:04→20:43)
[2022-04-10] MEDS: predniSONE 20 MG TAB PO SCH (09:04)
[2022-04-10] MEDS: SUCROFERRIC OXYHYDROXIDE 500MG CHEW TAB (VELPHORO) PO SCH ×3 (09:04→17:05)
[2022-04-10] MEDS: NORTRIPTYLINE 10 MG CAP PO SCH (09:04)
[2022-04-10] MEDS: **hydrALAZINE HCL** 25 MG TAB PO SCH ×3 (09:04→20:43)
[2022-04-10] MEDS: ACETAMINOPHEN 500 MG TAB PO SCH ×3 (09:05→20:44)
[2022-04-10] MEDS: LACTIC ACID 12% LOTION 225 GM BTL TOP SCH (09:06)
[2022-04-10 14:00] VITALS: BP 140/74
[2022-04-10 15:35] VITALS: BP 140/74
[2022-04-10 20:00] VITALS: BP 132/80
[2022-04-10] MEDS: traMADol 50 MG TAB PO PRN (20:01)
[2022-04-10] MEDS: hydrOXYzine 25 MG TAB PO SCH (20:42)
[2022-04-10] MEDS: RAMELTEON 8 MG TAB (ROZEREM) PO SCH (20:42)
[2022-04-10] MEDS: LOPERAMIDE 2 MG CAPLET PO SCH (20:43)
[2022-04-11] MEDS: traMADol 50 MG TAB PO PRN (00:53)
[2022-04-11] MEDS ORDERED: LOPERAMIDE 2 MG CAPLET PO ONE (03:30)
[2022-04-11 04:00] VITALS: BP 130/78
[2022-04-11] MEDS ORDERED: LOPERAMIDE 2 MG CAPLET PO PRN (04:55)
[2022-04-11 06:00] VITALS: BP 120/80
[2022-04-11] MEDS ORDERED: SODIUM CHLORIDE 0.9% 1000ML IV PRN (06:00)
[2022-04-11 06:03] LABS: BASO % 0.3 % (0.0-1.0); EOS % 0.4 % (0.0-3.0); HEMATOCRIT 26.4 % (42.0-52.0); HEMOGLOBIN 8.1 g/dl (13.5-17.5); LYMPH # 1.1 10^3/uL (1.5-5.0); LYMPH % 12.1 % (24.0-44.0); MEAN CORPUSCULAR HEMOGLOBIN 29.8 pg (27.0-33.0); MEAN CORPUSCULAR HGB CONC 30.7 g/dl (32.0-36.5); MEAN CORPUSCULAR VOLUME 97.1 fl (80.0-96.0); MONO % 10.7 % (2.0-8.0); NEUTROPHILS # 6.9 10^3/uL (1.5-8.5); NEUTROPHILS % 73.5 % (36.0-66.0); PLATELET COUNT, AUTOMATED 183 10^3/uL (150-450); RED BLOOD COUNT 2.72 10^6/uL (4.30-6.10); WHITE BLOOD COUNT 9.4 10^3/uL (4.0-10.0)
[2022-04-11 06:21] LABS: CALCIUM LEVEL 8.7 MG/DL (8.5-10.1); CREATININE FOR GFR 4.57 MG/DL (0.70-1.30); GLOMERULAR FILTRATION RATE 14.4 (>56)
[2022-04-11] MEDS: LEVEMIR (INSULIN DETEMIR) 1 UNITS/0.01ML SC SCH ×2 (07:08→22:39)
[2022-04-11] MEDS: INSULIN LISPRO (NovoLOG) PER UNIT SC SCH ×4 (07:08→22:41)
[2022-04-11] MEDS: **hydrALAZINE HCL** 25 MG TAB PO SCH ×3 (07:18→22:42)
[2022-04-11] MEDS: NORTRIPTYLINE 10 MG CAP PO SCH (07:18)
[2022-04-11] MEDS: ACETAMINOPHEN 500 MG TAB PO SCH ×3 (07:18→22:40)
[2022-04-11] MEDS: LACTOBACILLUS ACIDOPHILUS CAP (BACID) PO SCH ×4 (07:19→22:41)
[2022-04-11] MEDS: GABAPENTIN 100 MG CAP PO SCH ×2 (07:19→22:40)
[2022-04-11] MEDS: LOPERAMIDE 2 MG CAPLET PO SCH ×2 (07:19→22:41)
[2022-04-11] MEDS: TORSEMIDE 20 MG TAB PO SCH (07:19)
[2022-04-11] MEDS: CARVedilol 6.25 MG TAB PO SCH ×2 (07:19→22:42)
[2022-04-11] MEDS: predniSONE 20 MG TAB PO SCH (07:19)
[2022-04-11] MEDS: PANTOPRAZOLE 40MG TAB (PROTONIX) PO SCH ×2 (07:19→22:40)
[2022-04-11] MEDS: LACTIC ACID 12% LOTION 225 GM BTL TOP SCH (07:20)
[2022-04-11] MEDS: ADVAIR HFA 230/21MCG INHALER INH SCH ×2 (07:49→20:05)
[2022-04-11] MEDS: BUDESONIDE 0.25 MG/2 ML INHALATION SUSPENSION INH SCH ×2 (07:49→20:00)
[2022-04-11] MEDS: SUCROFERRIC OXYHYDROXIDE 500MG CHEW TAB (VELPHORO) PO SCH ×3 (08:00→17:00)
[2022-04-11] MEDS: SUCRALFATE 1 GM TAB PO SCH ×3 (11:54→22:40)
[2022-04-11 14:19] LABS: HEMATOCRIT 26.3 % (42.0-52.0); HEMOGLOBIN 8.3 g/dl (13.5-17.5)
[2022-04-11 15:50] VITALS: BP 101/59
[2022-04-11 20:00] VITALS: BP 116/68
[2022-04-11] MEDS: RAMELTEON 8 MG TAB (ROZEREM) PO SCH (22:39)
[2022-04-11] MEDS: hydrOXYzine 25 MG TAB PO SCH (22:40)
[2022-04-12 04:54] VITALS: BP 120/80
[2022-04-12] MEDS: INSULIN LISPRO (NovoLOG) PER UNIT SC SCH ×2 (07:30→12:00)
[2022-04-12] MEDS: SUCROFERRIC OXYHYDROXIDE 500MG CHEW TAB (VELPHORO) PO SCH ×3 (08:00→17:37)
[2022-04-12 08:02] LABS: BASO % 0.1 % (0.0-1.0); EOS # 0.1 10^3/uL (0.0-0.5); EOS % 0.8 % (0.0-3.0); HEMATOCRIT 27.9 % (42.0-52.0); HEMOGLOBIN 8.7 g/dl (13.5-17.5); LYMPH # 1.1 10^3/uL (1.5-5.0); LYMPH % 13.9 % (24.0-44.0); MEAN CORPUSCULAR HEMOGLOBIN 30.5 pg (27.0-33.0); MEAN CORPUSCULAR HGB CONC 31.2 g/dl (32.0-36.5); MEAN CORPUSCULAR VOLUME 97.9 fl (80.0-96.0); MONO # 1.2 10^3/uL (0.0-0.8); MONO % 15.5 % (2.0-8.0); NEUTROPHILS # 5.2 10^3/uL (1.5-8.5); PLATELET COUNT, AUTOMATED 199 10^3/uL (150-450); RED BLOOD COUNT 2.85 10^6/uL (4.30-6.10); WHITE BLOOD COUNT 7.6 10^3/uL (4.0-10.0)
[2022-04-12] MEDS: TORSEMIDE 20 MG TAB PO SCH (08:59)
[2022-04-12] MEDS: **hydrALAZINE HCL** 25 MG TAB PO SCH ×3 (08:59→20:29)
[2022-04-12] MEDS: NORTRIPTYLINE 10 MG CAP PO SCH (08:59)
[2022-04-12] MEDS: LOPERAMIDE 2 MG CAPLET PO SCH ×2 (09:00→20:28)
[2022-04-12] MEDS: LACTOBACILLUS ACIDOPHILUS CAP (BACID) PO SCH ×4 (09:00→20:29)
[2022-04-12] MEDS: SUCRALFATE 1 GM TAB PO SCH ×4 (09:00→20:29)
[2022-04-12] MEDS: ACETAMINOPHEN 500 MG TAB PO SCH ×3 (09:00→20:29)
[2022-04-12] MEDS: GABAPENTIN 100 MG CAP PO SCH ×2 (09:00→20:28)
[2022-04-12] MEDS: LEVEMIR (INSULIN DETEMIR) 1 UNITS/0.01ML SC SCH (09:00)
[2022-04-12] MEDS: PANTOPRAZOLE 40MG TAB (PROTONIX) PO SCH ×2 (09:00→20:29)
[2022-04-12] MEDS: CARVedilol 6.25 MG TAB PO SCH ×2 (09:00→20:30)
[2022-04-12] MEDS: LACTIC ACID 12% LOTION 225 GM BTL TOP SCH (09:05)
[2022-04-12] MEDS: BUDESONIDE 0.25 MG/2 ML INHALATION SUSPENSION INH SCH ×2 (11:45→19:12)
[2022-04-12] MEDS: ADVAIR HFA 230/21MCG INHALER INH SCH ×2 (11:45→19:12)
[2022-04-12] MEDS ORDERED: LIDOCAINE 1% MDV 20ML VIAL As Ordered ONE (12:16)
[2022-04-12 14:00] VITALS: BP 116/68
[2022-04-12 19:29] VITALS: BP 107/62
[2022-04-12] MEDS: RAMELTEON 8 MG TAB (ROZEREM) PO SCH (20:28)
[2022-04-12] MEDS: hydrOXYzine 25 MG TAB PO SCH (20:28)
[2022-04-12] MEDS ORDERED: LEVEMIR (INSULIN DETEMIR) 1 UNITS/0.01ML SC SCH (21:00)
[2022-04-12] MEDS ORDERED: LEVEMIR (INSULIN DETEMIR) 1 UNITS/0.01ML SC ONE (21:00)
[2022-04-13] MEDS ORDERED: SODIUM CHLORIDE 0.9% INJ 10 ML SYR IV PRN (01:25)
[2022-04-13] MEDS: SODIUM CHLORIDE 0.9% INJ 10 ML SYR IV SCH ×2 (05:45→17:17)
[2022-04-13 06:00] VITALS: BP 132/62
[2022-04-13] MEDS ORDERED: SODIUM CHLORIDE 0.9% 1000ML IV PRN (06:00)
[2022-04-13] MEDS: BUDESONIDE 0.25 MG/2 ML INHALATION SUSPENSION INH SCH ×2 (06:23→20:30)
[2022-04-13] MEDS: ADVAIR HFA 230/21MCG INHALER INH SCH ×2 (06:23→20:30)
[2022-04-13] MEDS: SUCRALFATE 1 GM TAB PO SCH ×4 (07:30→21:18)
[2022-04-13] MEDS: LACTOBACILLUS ACIDOPHILUS CAP (BACID) PO SCH ×4 (07:59→21:18)
[2022-04-13] MEDS: SUCROFERRIC OXYHYDROXIDE 500MG CHEW TAB (VELPHORO) PO SCH ×3 (07:59→17:17)
[2022-04-13 08:05] LABS: BASO % 0.1 % (0.0-1.0); EOS # 0.1 10^3/uL (0.0-0.5); EOS % 0.8 % (0.0-3.0); HEMATOCRIT 24.7 % (42.0-52.0); HEMOGLOBIN 7.5 g/dl (13.5-17.5); LYMPH # 1.2 10^3/uL (1.5-5.0); LYMPH % 15.6 % (24.0-44.0); MEAN CORPUSCULAR HEMOGLOBIN 29.6 pg (27.0-33.0); MEAN CORPUSCULAR HGB CONC 30.4 g/dl (32.0-36.5); MEAN CORPUSCULAR VOLUME 97.6 fl (80.0-96.0); MONO # 1.3 10^3/uL (0.0-0.8); MONO % 17.5 % (2.0-8.0); NEUTROPHILS # 4.8 10^3/uL (1.5-8.5); NEUTROPHILS % 64.4 % (36.0-66.0); PLATELET COUNT, AUTOMATED 176 10^3/uL (150-450); RED BLOOD COUNT 2.53 10^6/uL (4.30-6.10); WHITE BLOOD COUNT 7.5 10^3/uL (4.0-10.0)
[2022-04-13 08:36] LABS: CALCIUM LEVEL 8.5 MG/DL (8.5-10.1); CREATININE FOR GFR 5.02 MG/DL (0.70-1.30); GLOMERULAR FILTRATION RATE 12.9 (>56); POTASSIUM SERUM 3.5 MEQ/L (3.5-5.1)
[2022-04-13] MEDS: NORTRIPTYLINE 10 MG CAP PO SCH ×2 (09:00→17:21)
[2022-04-13] MEDS: **hydrALAZINE HCL** 25 MG TAB PO SCH ×3 (09:00→21:18)
[2022-04-13] MEDS: PANTOPRAZOLE 40MG TAB (PROTONIX) PO SCH ×2 (09:00→21:18)
[2022-04-13] MEDS: CARVedilol 6.25 MG TAB PO SCH ×2 (09:20→21:19)
[2022-04-13] MEDS: ACETAMINOPHEN 500 MG TAB PO SCH ×3 (09:21→21:19)
[2022-04-13] MEDS: TORSEMIDE 20 MG TAB PO SCH (09:21)
[2022-04-13] MEDS: GABAPENTIN 100 MG CAP PO SCH ×2 (09:21→21:18)
[2022-04-13] MEDS: LOPERAMIDE 2 MG CAPLET PO SCH ×2 (09:21→21:17)
[2022-04-13] MEDS: LACTIC ACID 12% LOTION 225 GM BTL TOP SCH (09:22)
[2022-04-13] MEDS ORDERED: DEXTROSE 50% 50 ML SYRINGE IV STA (11:08)
[2022-04-13] MEDS ORDERED: SODIUM CHLORIDE 0.9% 1000ML IV ONE (11:10)
[2022-04-13 15:34] VITALS: BP 114/54
[2022-04-13] MEDS: INSULIN LISPRO (NovoLOG) PER UNIT SC SCH ×2 (17:16→21:00)
[2022-04-13 20:00] VITALS: BP 121/55
[2022-04-13] MEDS: RAMELTEON 8 MG TAB (ROZEREM) PO SCH (21:17)
[2022-04-13] MEDS: hydrOXYzine 25 MG TAB PO SCH (21:18)
[2022-04-13] MEDS: APIXABAN 2.5 MG TAB (ELIQUIS) PO SCH (21:18)
[2022-04-13] MEDS: LEVEMIR (INSULIN DETEMIR) 1 UNITS/0.01ML SC SCH (21:20)
[2022-04-14] VITALS (12 sets, daily range): BP systolic 106–165; BP diastolic 51–111
[2022-04-14] MEDS: LOPERAMIDE 2 MG CAPLET PO SCH ×2 (06:11→20:15)
[2022-04-14] MEDS: SODIUM CHLORIDE 0.9% INJ 10 ML SYR IV SCH ×2 (06:11→17:19)
[2022-04-14] MEDS: SUCROFERRIC OXYHYDROXIDE 500MG CHEW TAB (VELPHORO) PO SCH ×3 (06:11→17:19)
[2022-04-14] MEDS: SUCRALFATE 1 GM TAB PO SCH ×4 (06:12→20:17)
[2022-04-14] MEDS: LACTOBACILLUS ACIDOPHILUS CAP (BACID) PO SCH ×4 (06:12→20:17)
[2022-04-14] MEDS: PANTOPRAZOLE 40MG TAB (PROTONIX) PO SCH ×2 (06:12→20:17)
[2022-04-14] MEDS: APIXABAN 2.5 MG TAB (ELIQUIS) PO SCH ×2 (06:12→20:16)
[2022-04-14] MEDS: GABAPENTIN 100 MG CAP PO SCH ×2 (06:12→20:16)
[2022-04-14] MEDS: ACETAMINOPHEN 500 MG TAB PO SCH ×3 (06:13→20:17)
[2022-04-14] MEDS: **hydrALAZINE HCL** 25 MG TAB PO SCH ×3 (06:53→20:16)
[2022-04-14] MEDS: CARVedilol 6.25 MG TAB PO SCH ×2 (06:54→20:16)
[2022-04-14] MEDS: TORSEMIDE 20 MG TAB PO SCH (06:54)
[2022-04-14] MEDS ORDERED: SODIUM CHLORIDE 0.9% 1000ML IV PRN (07:15)
[2022-04-14] MEDS: ADVAIR HFA 230/21MCG INHALER INH SCH ×2 (07:15→19:39)
[2022-04-14] MEDS ORDERED: LIDOCAINE 1% SDV 5ML VIAL SC PRN (07:15)
[2022-04-14] MEDS: BUDESONIDE 0.25 MG/2 ML INHALATION SUSPENSION INH SCH ×2 (07:16→19:39)
[2022-04-14] MEDS: INSULIN LISPRO (NovoLOG) PER UNIT SC SCH ×4 (07:48→20:18)
[2022-04-14] MEDS: LEVEMIR (INSULIN DETEMIR) 1 UNITS/0.01ML SC SCH ×2 (07:49→20:18)
[2022-04-14] MEDS: LACTIC ACID 12% LOTION 225 GM BTL TOP SCH (07:50)
[2022-04-14 08:29] LABS: HEMATOCRIT 23.3 % (42.0-52.0); HEMOGLOBIN 7.2 g/dl (13.5-17.5); MEAN CORPUSCULAR HEMOGLOBIN 30.5 pg (27.0-33.0); MEAN CORPUSCULAR HGB CONC 30.9 g/dl (32.0-36.5); MEAN CORPUSCULAR VOLUME 98.7 fl (80.0-96.0); PLATELET COUNT, AUTOMATED 148 10^3/uL (150-450); RED BLOOD COUNT 2.36 10^6/uL (4.30-6.10); WHITE BLOOD COUNT 8.5 10^3/uL (4.0-10.0)
[2022-04-14 08:46] LABS: ALBUMIN 1.7 GM/DL (3.2-5.2); CALCIUM LEVEL 8.3 MG/DL (8.5-10.1); CREATININE FOR GFR 5.99 MG/DL (0.70-1.30); GLOMERULAR FILTRATION RATE 10.5 (>56); PHOSPHORUS LEVEL 7.4 MG/DL (2.5-4.9); POTASSIUM SERUM 3.7 MEQ/L (3.5-5.1)
[2022-04-14] MEDS ORDERED: predniSONE 10 MG TAB PO SCH (09:00)
[2022-04-14] MEDS: LANTHANUM CARBONATE 500 MG CHEW TABLET PO SCH (17:19)
[2022-04-14] MEDS: hydrOXYzine 25 MG TAB PO SCH (20:15)
[2022-04-14] MEDS: RAMELTEON 8 MG TAB (ROZEREM) PO SCH (20:16)
[2022-04-14] MEDS: traMADol 50 MG TAB PO PRN (20:17)
[2022-04-14] MEDS ORDERED: SIMETHICONE 80MG CHEW TAB PO PRN (20:35)
[2022-04-15] MEDS: SODIUM CHLORIDE 0.9% INJ 10 ML SYR IV SCH ×2 (05:36→17:18)
[2022-04-15 06:00] VITALS: BP 130/68
[2022-04-15] MEDS: INSULIN LISPRO (NovoLOG) PER UNIT SC SCH ×4 (07:06→22:02)
[2022-04-15] MEDS: LEVEMIR (INSULIN DETEMIR) 1 UNITS/0.01ML SC SCH ×2 (07:06→22:03)
[2022-04-15] MEDS: BUDESONIDE 0.25 MG/2 ML INHALATION SUSPENSION INH SCH ×2 (07:09→20:00)
[2022-04-15] MEDS: ADVAIR HFA 230/21MCG INHALER INH SCH ×2 (07:09→20:40)
[2022-04-15] MEDS: SUCRALFATE 1 GM TAB PO SCH ×4 (07:13→21:57)
[2022-04-15] MEDS: ACETAMINOPHEN 500 MG TAB PO SCH ×3 (07:14→22:00)
[2022-04-15] MEDS: SUCROFERRIC OXYHYDROXIDE 500MG CHEW TAB (VELPHORO) PO SCH ×3 (07:14→17:18)
[2022-04-15] MEDS: GABAPENTIN 100 MG CAP PO SCH ×2 (07:14→22:02)
[2022-04-15] MEDS: PANTOPRAZOLE 40MG TAB (PROTONIX) PO SCH ×2 (07:14→22:00)
[2022-04-15] MEDS: NORTRIPTYLINE 10 MG CAP PO SCH (07:14)
[2022-04-15] MEDS: CARVedilol 6.25 MG TAB PO SCH ×2 (07:15→22:00)
[2022-04-15] MEDS: LOPERAMIDE 2 MG CAPLET PO SCH ×2 (07:15→22:00)
[2022-04-15] MEDS: LACTOBACILLUS ACIDOPHILUS CAP (BACID) PO SCH ×4 (07:15→22:05)
[2022-04-15] MEDS: **hydrALAZINE HCL** 25 MG TAB PO SCH ×3 (07:15→22:01)
[2022-04-15] MEDS: APIXABAN 2.5 MG TAB (ELIQUIS) PO SCH ×2 (07:15→22:01)
[2022-04-15] MEDS: LACTIC ACID 12% LOTION 225 GM BTL TOP SCH (07:16)
[2022-04-15] MEDS: TORSEMIDE 20 MG TAB PO SCH (07:16)
[2022-04-15] MEDS: LANTHANUM CARBONATE 500 MG CHEW TABLET PO SCH ×3 (07:16→17:18)
[2022-04-15 14:00] VITALS: BP 120/58
[2022-04-15 17:07] VITALS: BP 120/58
[2022-04-15 19:28] VITALS: BP 114/60
[2022-04-15] MEDS: hydrOXYzine 25 MG TAB PO SCH (22:01)
[2022-04-15] MEDS: RAMELTEON 8 MG TAB (ROZEREM) PO SCH (22:02)
[2022-04-15] MEDS: traMADol 50 MG TAB PO PRN (22:02)
[2022-04-16 05:19] VITALS: BP 114/68
[2022-04-16] MEDS: SODIUM CHLORIDE 0.9% INJ 10 ML SYR IV SCH ×2 (05:43→17:32)
[2022-04-16 06:16] LABS: HEMATOCRIT 26.6 % (42.0-52.0); HEMOGLOBIN 8.5 g/dl (13.5-17.5); MEAN CORPUSCULAR HEMOGLOBIN 30.5 pg (27.0-33.0); MEAN CORPUSCULAR VOLUME 95.3 fl (80.0-96.0); RED BLOOD COUNT 2.79 10^6/uL (4.30-6.10); WHITE BLOOD COUNT 6.4 10^3/uL (4.0-10.0)
[2022-04-16 06:48] LABS: PLATELET COUNT, AUTOMATED 90 10^3/uL (150-450)
[2022-04-16 07:00] LABS: ALBUMIN 1.6 GM/DL (3.2-5.2); CALCIUM LEVEL 7.9 MG/DL (8.5-10.1); CREATININE FOR GFR 5.23 MG/DL (0.70-1.30); GLOMERULAR FILTRATION RATE 12.3 (>56); PHOSPHORUS LEVEL 4.7 MG/DL (2.5-4.9); POTASSIUM SERUM 3.7 MEQ/L (3.5-5.1)
[2022-04-16] MEDS: ADVAIR HFA 230/21MCG INHALER INH SCH ×2 (07:28→19:33)
[2022-04-16] MEDS: BUDESONIDE 0.25 MG/2 ML INHALATION SUSPENSION INH SCH ×2 (07:28→19:33)
[2022-04-16] MEDS: LEVEMIR (INSULIN DETEMIR) 1 UNITS/0.01ML SC SCH ×2 (08:49→22:39)
[2022-04-16] MEDS: INSULIN LISPRO (NovoLOG) PER UNIT SC SCH ×4 (08:50→22:14)
[2022-04-16] MEDS: SUCROFERRIC OXYHYDROXIDE 500MG CHEW TAB (VELPHORO) PO SCH ×3 (08:51→17:29)
[2022-04-16] MEDS: TORSEMIDE 20 MG TAB PO SCH (08:52)
[2022-04-16] MEDS: GABAPENTIN 100 MG CAP PO SCH ×2 (08:52→20:53)
[2022-04-16] MEDS: NORTRIPTYLINE 10 MG CAP PO SCH (08:52)
[2022-04-16] MEDS: LACTOBACILLUS ACIDOPHILUS CAP (BACID) PO SCH ×4 (08:52→20:52)
[2022-04-16] MEDS: LANTHANUM CARBONATE 500 MG CHEW TABLET PO SCH ×3 (08:52→17:29)
[2022-04-16] MEDS: SUCRALFATE 1 GM TAB PO SCH (08:53)
[2022-04-16] MEDS: CARVedilol 6.25 MG TAB PO SCH ×2 (08:53→20:52)
[2022-04-16] MEDS: **hydrALAZINE HCL** 25 MG TAB PO SCH ×3 (08:53→20:30)
[2022-04-16] MEDS: LOPERAMIDE 2 MG CAPLET PO SCH ×2 (08:53→20:52)
[2022-04-16] MEDS: APIXABAN 2.5 MG TAB (ELIQUIS) PO SCH ×2 (08:53→20:52)
[2022-04-16] MEDS: PANTOPRAZOLE 40MG TAB (PROTONIX) PO SCH (08:53)
[2022-04-16] MEDS: ACETAMINOPHEN 500 MG TAB PO SCH ×3 (08:54→20:51)
[2022-04-16] MEDS: LACTIC ACID 12% LOTION 225 GM BTL TOP SCH (08:55)
[2022-04-16] MEDS: traMADol 50 MG TAB PO PRN ×2 (08:55→20:52)
[2022-04-16 14:00] VITALS: BP 148/61
[2022-04-16 17:30] VITALS: BP 112/49
[2022-04-16 20:00] VITALS: BP 110/50
[2022-04-16] MEDS: RAMELTEON 8 MG TAB (ROZEREM) PO SCH (20:52)
[2022-04-16] MEDS: hydrOXYzine 25 MG TAB PO SCH (20:52)
[2022-04-17] MEDS ORDERED: ONDANSETRON 4MG/2ML VIAL IV ONE ×2 (01:05→02:15)
[2022-04-17] MEDS ORDERED: ISOVUE-370 76% 100ML VIAL As Ordered ONE (01:08)
[2022-04-17 01:39] LABS: ABG STANDARD HCO3 15.8 MEQ/L (22.0-26.0)
[2022-04-17 01:42] LABS: ABG HCO3 18.2 MEQ/L (22.0-26.0); ABG PARTIAL PRESSURE CO2 55.4 mmHg (35.0-45.0); ABG PARTIAL PRESSURE O2 116.8 mmHg (75.0-100.0); ABG TOTAL CO2 19.9 MEQ/L (22.0-29.0)
[2022-04-17 01:44] LABS: ABG pH (ARTERIAL) 7.134 UNITS (7.350-7.450)
[2022-04-17 01:53] LABS: ALBUMIN 1.7 GM/DL (3.2-5.2); BILIRUBIN,TOTAL 0.6 MG/DL (0.2-1.0); CALCIUM LEVEL 10.1 MG/DL (8.5-10.1); CREATININE FOR GFR 6.11 MG/DL (0.70-1.30); GLOMERULAR FILTRATION RATE 10.3 (>56); POTASSIUM SERUM 4.6 MEQ/L (3.5-5.1); TOTAL PROTEIN 5.1 GM/DL (6.4-8.2)
[2022-04-17 01:58] LABS: BASO % 0.3 % (0.0-1.0); EOS # 0.1 10^3/uL (0.0-0.5); EOS % 0.6 % (0.0-3.0); HEMATOCRIT 29.5 % (42.0-52.0); HEMOGLOBIN 9.1 g/dl (13.5-17.5); LYMPH # 3.8 10^3/uL (1.5-5.0); MEAN CORPUSCULAR HEMOGLOBIN 30.7 pg (27.0-33.0); MEAN CORPUSCULAR HGB CONC 30.8 g/dl (32.0-36.5); MEAN CORPUSCULAR VOLUME 99.7 fl (80.0-96.0); MONO % 8.9 % (2.0-8.0); NEUTROPHILS # 5.5 10^3/uL (1.5-8.5); NEUTROPHILS % 51.2 % (36.0-66.0); RED BLOOD COUNT 2.96 10^6/uL (4.30-6.10); WHITE BLOOD COUNT 10.8 10^3/uL (4.0-10.0)
[2022-04-17 01:59] LABS: PLATELET COUNT, AUTOMATED 80 10^3/uL (150-450)
[2022-04-17 02:10] VITALS: BP 80/37
[2022-04-17 02:16] VITALS: BP 81/36
[2022-04-17 02:30] VITALS: BP 68/31
[2022-04-17 02:33] VITALS: BP 75/35
[2022-04-17 02:42] VITALS: BP 89/48
[2022-04-17 03:03] LABS: CK-MB VALUE MASS 2.8 NG/ML (<3.6); MB/CK RELATIVE INDEX 13.33 (< OR =4)
[2022-04-17] MEDS ORDERED: INSUDET SC (03:50)
[2022-04-17] MEDS ORDERED: LANT1000 PO (03:50)
[2022-04-17] MEDS ORDERED: GABA-1171 PO ×2 (03:50)
[2022-04-17] MEDS ORDERED: PANTOPRAZOLE 40MG TAB (PROTONIX) PO SCH (09:00)
== END 2022-04-17 02:35 | DRG 559 ==
LOC: M PM&R 17:25 → M ICU 04-17 01:03 → M PM&R 04-17 01:03 → UNDODISIN 04-17 02:35
PROVIDERS: ADMIT Physical Medicine & Rehabilitation; ATTEND Physical Medicine & Rehabilitation
PROC: 5A1D70Z Performance of Urinary Filtration, Intermittent, Less than 6 Hours Per Day (ICD-10-PCS; 2022-04-07)
PROC: 30233N1 Transfusion of Nonautologous Red Blood Cells into Peripheral Vein, Percutaneous Approach (ICD-10-PCS; 2022-04-07)
PROC: 02HV33Z Insertion of Infusion Device into Superior Vena Cava, Percutaneous Approach (ICD-10-PCS; principal; 2022-04-12 13:00)
DX: Z47.81 Encounter for orthopedic aftercare following surgical amputation (principal); N18.6 End stage renal disease; I46.9 Cardiac arrest, cause unspecified; E46 Unspecified protein-calorie malnutrition; I48.92 Unspecified atrial flutter; I13.2 Hypertensive heart and chronic kidney disease with heart failure and with stage 5 chronic kidney disease, or end stage renal disease; I50.42 Chronic combined systolic (congestive) and diastolic (congestive) heart failure; K92.2 Gastrointestinal hemorrhage, unspecified; F32.A Depression, unspecified; F41.9 Anxiety disorder, unspecified; I89.0 Lymphedema, not elsewhere classified; E11.51 Type 2 diabetes mellitus with diabetic peripheral angiopathy without gangrene; E11.22 Type 2 diabetes mellitus with diabetic chronic kidney disease; E11.42 Type 2 diabetes mellitus with diabetic polyneuropathy; Z74.09 Other reduced mobility; Z74.1 Need for assistance with personal care; Z99.2 Dependence on renal dialysis; I73.9 Peripheral vascular disease, unspecified; Z89.611 Acquired absence of right leg above knee; D63.1 Anemia in chronic kidney disease; Z90.49 Acquired absence of other specified parts of digestive tract; Z95.828 Presence of other vascular implants and grafts; J44.9 Chronic obstructive pulmonary disease, unspecified; Z79.01 Long term (current) use of anticoagulants; Z79.4 Long term (current) use of insulin; Z79.2 Long term (current) use of antibiotics; Z79.899 Other long term (current) drug therapy; Z88.8 Allergy status to other drugs, medicaments and biological substances; Z91.018 Allergy to other foods; Z91.048 Other nonmedicinal substance allergy status; I27.20 Pulmonary hypertension, unspecified; I50.810 Right heart failure, unspecified; I25.10 Atherosclerotic heart disease of native coronary artery without angina pectoris; G47.30 Sleep apnea, unspecified; Z20.822 Contact with and (suspected) exposure to COVID-19; D72.829 Elevated white blood cell count, unspecified; E83.39 Other disorders of phosphorus metabolism

== ENCOUNTER 2022-04-12 12:27 | Day surgery (SDC) | payer MEDICARE, MEDICAID ==
[~2022-04-12 12:27] MED LIST changes: +ALBU2.5V10 NEB; -ALBU83IN NEB
[2022-04-13] MEDS ORDERED: ONDANSETRON 4MG/2ML VIAL As Ordered ONE (14:37)
[2022-04-13] MEDS ORDERED: LIDOCAINE 2% INJ 100 MG/5 ML SYRINGE As Ordered ONE (14:37)
[2022-04-13] MEDS ORDERED: propofoL 200 MG/20 ML VIAL As Ordered ONE (14:37)
[2022-04-13] MEDS ORDERED: fentaNYL 100 MCG/2 ML INJECTION As Ordered ONE (14:38)
[2022-04-13 15:00] VITALS: BP 118/46
[2022-04-17] MEDS ORDERED: ONDANSETRON 4MG/2ML VIAL As Ordered ONE (01:06)
== END 2022-04-13 15:15 | disposition home or self-care (01) ==
LOC: M SDC 12:27
PROVIDERS: ATTEND Internal Medicine Gastroenterology
DX: D62 Acute posthemorrhagic anemia (principal); K22.89 Other specified disease of esophagus; K29.70 Gastritis, unspecified, without bleeding; Z91.018 Allergy to other foods; Z88.8 Allergy status to other drugs, medicaments and biological substances
CPT/HCPCS: 43239; 88305; J2405; J3010

== ENCOUNTER 2022-04-17 01:36 | Inpatient (IN) | payer MEDICARE, MEDICAID ==
[~2022-04-17] VITALS: Ht 190.5 cm; Wt 119.9 kg
[2022-04-17] VITALS (35 sets, daily range): BP systolic 82–138; BP diastolic 39–69
[2022-04-17] MEDS ORDERED: MOM 30ML SUSPENSION UDC PO PRN (02:55)
[2022-04-17] MEDS ORDERED: HEPARIN SOD (PORCINE) 5000UNITS/ML 1ML VIAL/SYRINGE SC SCH (02:55)
[2022-04-17] MEDS ORDERED: MAALOX 30 ML SUSP *UDC PO PRN (02:55)
[2022-04-17] MEDS ORDERED: GABA-1171 PO ×2 (03:50)
[2022-04-17] MEDS ORDERED: LANT1000 PO (03:50)
[2022-04-17] MEDS ORDERED: HOME MED LIST COMPLETE! XX SCH (03:50)
[2022-04-17] MEDS ORDERED: INSUDET SC (03:50)
[2022-04-17] MEDS: NOREPINEPHRINE BITARTRATE 16 MG in D5W 484 ML IV SCH (04:05)
[2022-04-17] MEDS ORDERED: ALBUTEROL 90 MCG/ACT 8GM HFA INHALER INH PRN (04:40)
[2022-04-17 05:30] LABS: ABG BASE EXCESS -11.6 (-2.0-2.0); ABG HCO3 16.1 MEQ/L (22.0-26.0); ABG O2 SATURATION 96.7 % (95.0-99.0); ABG PARTIAL PRESSURE CO2 44.2 mmHg (35.0-45.0); ABG PARTIAL PRESSURE O2 107.2 mmHg (75.0-100.0); ABG STANDARD HCO3 15.2 MEQ/L (22.0-26.0); ABG TOTAL CO2 17.4 MEQ/L (22.0-29.0)
[2022-04-17 05:32] LABS: ABG pH (ARTERIAL) 7.179 UNITS (7.350-7.450)
[2022-04-17] MEDS: cefTRIAXone SOD 1 GM in D5W MINI-BAG PLUS 50 ML IV SCH (05:53)
[2022-04-17] MEDS ORDERED: CALCIUM CHLORIDE 10% 1 GM/10 ML SYR ONE (06:51)
[2022-04-17] MEDS ORDERED: SODIUM BICARBONATE 8.4% INJ 50 ML SYRINGE ONE (06:51)
[2022-04-17 07:23] LABS: BASO % 0.1 % (0.0-1.0); EOS % 0.3 % (0.0-3.0); HEMATOCRIT 27.3 % (42.0-52.0); HEMOGLOBIN 8.5 g/dl (13.5-17.5); LYMPH # 1.1 10^3/uL (1.5-5.0); LYMPH % 14.3 % (24.0-44.0); MEAN CORPUSCULAR HEMOGLOBIN 30.4 pg (27.0-33.0); MEAN CORPUSCULAR HGB CONC 31.1 g/dl (32.0-36.5); MEAN CORPUSCULAR VOLUME 97.5 fl (80.0-96.0); MONO # 0.7 10^3/uL (0.0-0.8); MONO % 9.3 % (2.0-8.0); NEUTROPHILS # 5.5 10^3/uL (1.5-8.5); PLATELET COUNT, AUTOMATED 83 10^3/uL (150-450); WHITE BLOOD COUNT 7.4 10^3/uL (4.0-10.0)
[2022-04-17 07:45] LABS: CK-MB VALUE MASS 3.1 NG/ML (<3.6); MB/CK RELATIVE INDEX 14.76 (< OR =4)
[2022-04-17] MEDS ORDERED: VANCOMYCIN HCL 1,000 MG, VIAL MATE ADAPTER 1 EACH in NS 250 ML IV ONE (08:00)
[2022-04-17 08:20] LABS: ALBUMIN 1.6 GM/DL (3.2-5.2); BILIRUBIN,TOTAL 0.6 MG/DL (0.2-1.0); CALCIUM LEVEL 8.3 MG/DL (8.5-10.1); CREATININE FOR GFR 6.03 MG/DL (0.70-1.30); GLOMERULAR FILTRATION RATE 10.4 (>56); POTASSIUM SERUM 4.4 MEQ/L (3.5-5.1); TOTAL PROTEIN 5.1 GM/DL (6.4-8.2)
[2022-04-17] MEDS ORDERED: CLOPIDOGREL 75 MG TAB PO SCH (09:00)
[2022-04-17] MEDS: SUCROFERRIC OXYHYDROXIDE 500MG CHEW TAB (VELPHORO) PO SCH ×3 (09:14→18:15)
[2022-04-17] MEDS: PANTOPRAZOLE 40MG TAB (PROTONIX) PO SCH (09:14)
[2022-04-17] MEDS: APIXABAN 2.5 MG TAB (ELIQUIS) PO SCH ×2 (09:14→20:54)
[2022-04-17] MEDS: LACTOBACILLUS ACIDOPHILUS CAP (BACID) PO SCH ×4 (09:14→20:54)
[2022-04-17] MEDS: LACTIC ACID 12% LOTION 225 GM BTL TOP SCH (09:15)
[2022-04-17] MEDS: ACETAMINOPHEN TAB 650MG DOSE (2X325MG) PO PRN ×2 (09:15→15:49)
[2022-04-17] MEDS ORDERED: DEXTROSE 50% 50 ML SYRINGE IV PRN (09:35)
[2022-04-17] MEDS ORDERED: GLUCAGON INJ 1MG VIAL SC PRN (09:35)
[2022-04-17] MEDS ORDERED: GLUCOSE 4GM CHEW TABLET PO PRN (09:35)
[2022-04-17] MEDS ORDERED: SODIUM CHLORIDE 0.9% 1000ML IV PRN (09:50)
[2022-04-17 10:57] LABS: CK-MB VALUE MASS 3.1 NG/ML (<3.6); MB/CK RELATIVE INDEX 12.92 (< OR =4)
[2022-04-17] MEDS ORDERED: DARBEPOETIN 100 MCG/0.5 ML *DIALYSIS* SYRINGE (J0882) IV SCH (11:30)
[2022-04-17] MEDS: INSULIN LISPRO (NovoLOG) PER UNIT SC SCH ×3 (12:00→20:54)
[2022-04-17 13:32] LABS: CK-MB VALUE MASS 3.6 NG/ML (<3.6); MB/CK RELATIVE INDEX 14.4 (< OR =4)
[2022-04-17] MEDS ORDERED: ADVAIR HFA 230/21MCG INHALER INH PRN (15:00)
[2022-04-17] MEDS: CLOPIDOGREL 75 MG TAB PO SCH (15:50)
[2022-04-17] MEDS: LEVEMIR (INSULIN DETEMIR) 1 UNITS/0.01ML SC SCH (20:54)
[2022-04-18] VITALS (45 sets, daily range): BP systolic 87–145; BP diastolic 40–63; O2SAT 98
[2022-04-18] MEDS: ALBUTEROL 90 MCG/ACT 8GM HFA INHALER INH SCH ×6 (00:29→19:16)
[2022-04-18] MEDS: ACETAMINOPHEN TAB 650MG DOSE (2X325MG) PO PRN ×3 (02:28→23:13)
[2022-04-18] MEDS: NOREPINEPHRINE BITARTRATE 16 MG in D5W 484 ML IV SCH (03:00)
[2022-04-18] MEDS: cefTRIAXone SOD 1 GM in D5W MINI-BAG PLUS 50 ML IV SCH (05:14)
[2022-04-18 06:46] LABS: BASO % 0.3 % (0.0-1.0); EOS # 0.1 10^3/uL (0.0-0.5); EOS % 0.7 % (0.0-3.0); HEMATOCRIT 29.3 % (42.0-52.0); HEMOGLOBIN 9.1 g/dl (13.5-17.5); LYMPH # 1.3 10^3/uL (1.5-5.0); MEAN CORPUSCULAR HEMOGLOBIN 30.1 pg (27.0-33.0); MEAN CORPUSCULAR HGB CONC 31.1 g/dl (32.0-36.5); MONO # 0.9 10^3/uL (0.0-0.8); MONO % 11.1 % (2.0-8.0); NEUTROPHILS # 5.4 10^3/uL (1.5-8.5); NEUTROPHILS % 69.7 % (36.0-66.0); RED BLOOD COUNT 3.02 10^6/uL (4.30-6.10); WHITE BLOOD COUNT 7.7 10^3/uL (4.0-10.0)
[2022-04-18 06:49] LABS: PLATELET COUNT, AUTOMATED 94 10^3/uL (150-450)
[2022-04-18 07:24] LABS: ALBUMIN 1.8 GM/DL (3.2-5.2); BILIRUBIN,TOTAL 0.7 MG/DL (0.2-1.0); CALCIUM LEVEL 8.2 MG/DL (8.5-10.1); CREATININE FOR GFR 4.56 MG/DL (0.70-1.30); GLOMERULAR FILTRATION RATE 14.4 (>56); MAGNESIUM LEVEL 1.8 MG/DL (1.8-2.4); POTASSIUM SERUM 4.3 MEQ/L (3.5-5.1); TOTAL PROTEIN 5.5 GM/DL (6.4-8.2); VANCOMYCIN RANDOM 10.2 UG/ML
[2022-04-18] MEDS: ADVAIR HFA 230/21MCG INHALER INH SCH ×2 (08:43→19:16)
[2022-04-18] MEDS: INSULIN LISPRO (NovoLOG) PER UNIT SC SCH ×4 (09:00→20:42)
[2022-04-18] MEDS: LEVEMIR (INSULIN DETEMIR) 1 UNITS/0.01ML SC SCH ×2 (09:00→20:42)
[2022-04-18] MEDS: PANTOPRAZOLE 40MG TAB (PROTONIX) PO SCH (09:01)
[2022-04-18] MEDS: GABAPENTIN 100 MG CAP PO SCH ×2 (09:01→20:42)
[2022-04-18] MEDS: LACTOBACILLUS ACIDOPHILUS CAP (BACID) PO SCH ×4 (09:01→20:42)
[2022-04-18] MEDS: APIXABAN 2.5 MG TAB (ELIQUIS) PO SCH ×2 (09:02→20:42)
[2022-04-18] MEDS: CLOPIDOGREL 75 MG TAB PO SCH (09:02)
[2022-04-18] MEDS: SUCROFERRIC OXYHYDROXIDE 500MG CHEW TAB (VELPHORO) PO SCH ×4 (09:03→18:39)
[2022-04-18] MEDS: LACTIC ACID 12% LOTION 225 GM BTL TOP SCH (09:03)
[2022-04-18] MEDS: LIDOCAINE 5% (LIDODERM) PATCH TD SCH (09:03)
[2022-04-18] MEDS ORDERED: NOREPINEPHRINE BITARTRATE 16 MG in D5W 484 ML IV SCH (09:07)
[2022-04-18] MEDS ORDERED: PILL CUTTER 1 EACH XX PRN (13:20)
[2022-04-18] MEDS: traMADol 50 MG TAB PO PRN (13:22)
[2022-04-18] MEDS ORDERED: VANCOMYCIN HCL 750 MG, VIAL MATE ADAPTER 1 EACH in NS 250 ML IV SCH (15:00)
[2022-04-18] MEDS ORDERED: **NOTE PATIENT COMMENT** MISC XX SCH (21:00)
[2022-04-19] VITALS (11 sets, daily range): BP systolic 95–143; BP diastolic 49–61
[2022-04-19] MEDS: traMADol 50 MG TAB PO PRN ×3 (03:03→22:06)
[2022-04-19] MEDS: ALBUTEROL 90 MCG/ACT 8GM HFA INHALER INH SCH ×6 (03:49→20:00)
[2022-04-19] MEDS: cefTRIAXone SOD 1 GM in D5W MINI-BAG PLUS 50 ML IV SCH (04:39)
[2022-04-19 05:46] LABS: BASO % 0.2 % (0.0-1.0); EOS # 0.1 10^3/uL (0.0-0.5); EOS % 0.8 % (0.0-3.0); HEMATOCRIT 24.6 % (42.0-52.0); HEMOGLOBIN 7.7 g/dl (13.5-17.5); LYMPH # 1.2 10^3/uL (1.5-5.0); LYMPH % 18.4 % (24.0-44.0); MEAN CORPUSCULAR HEMOGLOBIN 30.3 pg (27.0-33.0); MEAN CORPUSCULAR HGB CONC 31.3 g/dl (32.0-36.5); MEAN CORPUSCULAR VOLUME 96.9 fl (80.0-96.0); MONO # 0.6 10^3/uL (0.0-0.8); NEUTROPHILS # 4.4 10^3/uL (1.5-8.5); NEUTROPHILS % 69.2 % (36.0-66.0); RED BLOOD COUNT 2.54 10^6/uL (4.30-6.10); WHITE BLOOD COUNT 6.4 10^3/uL (4.0-10.0)
[2022-04-19 05:53] LABS: PLATELET COUNT, AUTOMATED 78 10^3/uL (150-450)
[2022-04-19 06:16] LABS: ALBUMIN 1.6 GM/DL (3.2-5.2); BILIRUBIN,TOTAL 0.6 MG/DL (0.2-1.0); CALCIUM LEVEL 8.4 MG/DL (8.5-10.1); CREATININE FOR GFR 5.51 MG/DL (0.70-1.30); GLOMERULAR FILTRATION RATE 11.6 (>56); POTASSIUM SERUM 4.6 MEQ/L (3.5-5.1); TOTAL PROTEIN 5.2 GM/DL (6.4-8.2)
[2022-04-19] MEDS: ADVAIR HFA 230/21MCG INHALER INH SCH ×2 (07:45→19:20)
[2022-04-19] MEDS: APIXABAN 2.5 MG TAB (ELIQUIS) PO SCH ×2 (08:04→21:47)
[2022-04-19] MEDS: SUCROFERRIC OXYHYDROXIDE 500MG CHEW TAB (VELPHORO) PO SCH ×3 (08:04→18:19)
[2022-04-19] MEDS: LACTOBACILLUS ACIDOPHILUS CAP (BACID) PO SCH ×4 (08:04→21:46)
[2022-04-19] MEDS: CLOPIDOGREL 75 MG TAB PO SCH (08:04)
[2022-04-19] MEDS: INSULIN LISPRO (NovoLOG) PER UNIT SC SCH ×4 (08:04→21:00)
[2022-04-19] MEDS: LIDOCAINE 5% (LIDODERM) PATCH TD SCH (08:05)
[2022-04-19] MEDS: PANTOPRAZOLE 40MG TAB (PROTONIX) PO SCH (08:05)
[2022-04-19] MEDS: GABAPENTIN 100 MG CAP PO SCH ×2 (08:05→21:47)
[2022-04-19] MEDS: LEVEMIR (INSULIN DETEMIR) 1 UNITS/0.01ML SC SCH ×2 (08:16→21:50)
[2022-04-19 11:32] LABS: CK-MB VALUE MASS 3.5 NG/ML (<3.6); MB/CK RELATIVE INDEX 21.88 (< OR =4)
[2022-04-19] MEDS: LACTIC ACID 12% LOTION 225 GM BTL TOP SCH (12:41)
[2022-04-19] MEDS: ACETAMINOPHEN TAB 650MG DOSE (2X325MG) PO PRN (16:27)
[2022-04-19] MEDS: DICLOFENAC EPOLAMINE 1.3 % PATCH TOP SCH (21:47)
[2022-04-20] VITALS (15 sets, daily range): BP systolic 105–178; BP diastolic 45–106
[2022-04-20] MEDS: ALBUTEROL 90 MCG/ACT 8GM HFA INHALER INH SCH ×6 (03:41→19:59)
[2022-04-20] MEDS ORDERED: SODIUM CHLORIDE 0.9% 1000ML IV PRN (05:20)
[2022-04-20] MEDS: cefTRIAXone SOD 1 GM in D5W MINI-BAG PLUS 50 ML IV SCH (05:49)
[2022-04-20 06:25] LABS: EOS # 0.1 10^3/uL (0.0-0.5); EOS % 0.8 % (0.0-3.0); HEMATOCRIT 25.6 % (42.0-52.0); HEMOGLOBIN 7.8 g/dl (13.5-17.5); LYMPH # 1.3 10^3/uL (1.5-5.0); LYMPH % 17.1 % (24.0-44.0); MEAN CORPUSCULAR HEMOGLOBIN 29.8 pg (27.0-33.0); MEAN CORPUSCULAR HGB CONC 30.5 g/dl (32.0-36.5); MEAN CORPUSCULAR VOLUME 97.7 fl (80.0-96.0); MONO # 0.7 10^3/uL (0.0-0.8); MONO % 9.3 % (2.0-8.0); NEUTROPHILS # 5.3 10^3/uL (1.5-8.5); NEUTROPHILS % 71.9 % (36.0-66.0); RED BLOOD COUNT 2.62 10^6/uL (4.30-6.10); WHITE BLOOD COUNT 7.4 10^3/uL (4.0-10.0)
[2022-04-20 06:29] LABS: PLATELET COUNT, AUTOMATED 89 10^3/uL (150-450)
[2022-04-20] MEDS: GABAPENTIN 100 MG CAP PO SCH ×2 (06:31→21:21)
[2022-04-20] MEDS: traMADol 50 MG TAB PO PRN ×2 (06:32→15:00)
[2022-04-20 06:52] LABS: ALBUMIN 1.6 GM/DL (3.2-5.2); BILIRUBIN,TOTAL 0.5 MG/DL (0.2-1.0); CALCIUM LEVEL 8.4 MG/DL (8.5-10.1); CREATININE FOR GFR 6.92 MG/DL (0.70-1.30); GLOMERULAR FILTRATION RATE 8.9 (>56); MAGNESIUM LEVEL 2.1 MG/DL (1.8-2.4); POTASSIUM SERUM 5.2 MEQ/L (3.5-5.1); TOTAL PROTEIN 5.4 GM/DL (6.4-8.2)
[2022-04-20] MEDS: ADVAIR HFA 230/21MCG INHALER INH SCH ×2 (07:06→19:58)
[2022-04-20] MEDS: LEVEMIR (INSULIN DETEMIR) 1 UNITS/0.01ML SC SCH ×2 (07:47→21:21)
[2022-04-20] MEDS: INSULIN LISPRO (NovoLOG) PER UNIT SC SCH ×4 (07:48→20:17)
[2022-04-20] MEDS: APIXABAN 2.5 MG TAB (ELIQUIS) PO SCH ×2 (07:49→21:21)
[2022-04-20] MEDS: PANTOPRAZOLE 40MG TAB (PROTONIX) PO SCH (07:49)
[2022-04-20] MEDS: SUCROFERRIC OXYHYDROXIDE 500MG CHEW TAB (VELPHORO) PO SCH ×3 (07:49→18:35)
[2022-04-20] MEDS: LACTOBACILLUS ACIDOPHILUS CAP (BACID) PO SCH ×4 (07:49→21:21)
[2022-04-20] MEDS: CLOPIDOGREL 75 MG TAB PO SCH (07:49)
[2022-04-20] MEDS: DICLOFENAC EPOLAMINE 1.3 % PATCH TOP SCH ×2 (07:50→21:21)
[2022-04-20] MEDS: LACTIC ACID 12% LOTION 225 GM BTL TOP SCH (12:58)
[2022-04-20] MEDS ORDERED: KETOROLAC 30 MG/ML 1ML VIAL IV ONE (13:30)
[2022-04-21] VITALS: BP 141/63
[2022-04-21] MEDS: ALBUTEROL 90 MCG/ACT 8GM HFA INHALER INH SCH ×6 (01:03→19:44)
[2022-04-21 04:00] VITALS: BP 126/62
[2022-04-21] MEDS: cefTRIAXone SOD 1 GM in D5W MINI-BAG PLUS 50 ML IV SCH (05:27)
[2022-04-21 07:28] LABS: BASO % 0.1 % (0.0-1.0); EOS # 0.1 10^3/uL (0.0-0.5); EOS % 0.7 % (0.0-3.0); HEMATOCRIT 29.1 % (42.0-52.0); HEMOGLOBIN 9.1 g/dl (13.5-17.5); LYMPH % 13.7 % (24.0-44.0); MEAN CORPUSCULAR HEMOGLOBIN 29.4 pg (27.0-33.0); MEAN CORPUSCULAR HGB CONC 31.3 g/dl (32.0-36.5); MEAN CORPUSCULAR VOLUME 94.2 fl (80.0-96.0); MONO # 0.6 10^3/uL (0.0-0.8); NEUTROPHILS # 5.4 10^3/uL (1.5-8.5); NEUTROPHILS % 76.8 % (36.0-66.0); PLATELET COUNT, AUTOMATED 102 10^3/uL (150-450); RED BLOOD COUNT 3.09 10^6/uL (4.30-6.10)
[2022-04-21] MEDS: ADVAIR HFA 230/21MCG INHALER INH SCH ×2 (07:35→19:44)
[2022-04-21 07:59] LABS: ALBUMIN 1.7 GM/DL (3.2-5.2); BILIRUBIN,TOTAL 0.7 MG/DL (0.2-1.0); CALCIUM LEVEL 8.4 MG/DL (8.5-10.1); CREATININE FOR GFR 4.85 MG/DL (0.70-1.30); GLOMERULAR FILTRATION RATE 13.4 (>56); MAGNESIUM LEVEL 1.9 MG/DL (1.8-2.4); POTASSIUM SERUM 3.9 MEQ/L (3.5-5.1); TOTAL PROTEIN 6.1 GM/DL (6.4-8.2)
[2022-04-21 08:00] VITALS: BP 143/60
[2022-04-21] MEDS: INSULIN LISPRO (NovoLOG) PER UNIT SC SCH ×4 (09:38→20:54)
[2022-04-21] MEDS: SUCROFERRIC OXYHYDROXIDE 500MG CHEW TAB (VELPHORO) PO SCH ×3 (09:39→18:49)
[2022-04-21] MEDS: CLOPIDOGREL 75 MG TAB PO SCH (09:39)
[2022-04-21] MEDS: APIXABAN 2.5 MG TAB (ELIQUIS) PO SCH ×2 (09:39→21:10)
[2022-04-21] MEDS: LEVEMIR (INSULIN DETEMIR) 1 UNITS/0.01ML SC SCH ×2 (09:39→21:10)
[2022-04-21] MEDS: GABAPENTIN 100 MG CAP PO SCH ×2 (09:40→21:11)
[2022-04-21] MEDS: PANTOPRAZOLE 40MG TAB (PROTONIX) PO SCH (09:41)
[2022-04-21] MEDS: LACTOBACILLUS ACIDOPHILUS CAP (BACID) PO SCH ×4 (09:41→21:10)
[2022-04-21] MEDS: traMADol 50 MG TAB PO PRN ×2 (09:41→18:50)
[2022-04-21] MEDS: DICLOFENAC EPOLAMINE 1.3 % PATCH TOP SCH ×2 (09:42→21:11)
[2022-04-21] MEDS: LIDOCAINE 5% OINT 30GM TUBE TOP SCH ×2 (13:31→21:09)
[2022-04-21] MEDS: LACTIC ACID 12% LOTION 225 GM BTL TOP SCH (14:33)
[2022-04-21 15:37] VITALS: BP 128/76
[2022-04-21 18:00] VITALS: BP 147/61
[2022-04-21 22:00] VITALS: BP 133/80
[2022-04-22] MEDS: ALBUTEROL 90 MCG/ACT 8GM HFA INHALER INH SCH ×6 (04:00→19:58)
[2022-04-22 06:00] VITALS: BP 136/75
[2022-04-22] MEDS: ADVAIR HFA 230/21MCG INHALER INH SCH ×2 (07:26→19:58)
[2022-04-22] MEDS: LEVEMIR (INSULIN DETEMIR) 1 UNITS/0.01ML SC SCH ×2 (08:13→20:24)
[2022-04-22] MEDS: LACTIC ACID 12% LOTION 225 GM BTL TOP SCH (08:13)
[2022-04-22] MEDS: LIDOCAINE 5% OINT 30GM TUBE TOP SCH ×2 (08:13→20:07)
[2022-04-22] MEDS: INSULIN LISPRO (NovoLOG) PER UNIT SC SCH ×4 (08:14→20:25)
[2022-04-22] MEDS: CLOPIDOGREL 75 MG TAB PO SCH (08:14)
[2022-04-22] MEDS: LACTOBACILLUS ACIDOPHILUS CAP (BACID) PO SCH ×4 (08:14→20:06)
[2022-04-22] MEDS: GABAPENTIN 100 MG CAP PO SCH ×2 (08:14→20:06)
[2022-04-22] MEDS: PANTOPRAZOLE 40MG TAB (PROTONIX) PO SCH (08:14)
[2022-04-22] MEDS: APIXABAN 2.5 MG TAB (ELIQUIS) PO SCH ×2 (08:14→20:06)
[2022-04-22] MEDS: SUCROFERRIC OXYHYDROXIDE 500MG CHEW TAB (VELPHORO) PO SCH ×3 (08:14→16:53)
[2022-04-22] MEDS: DICLOFENAC EPOLAMINE 1.3 % PATCH TOP SCH ×2 (08:15→20:07)
[2022-04-22 09:12] LABS: BASO % 0.4 % (0.0-1.0); EOS # 0.1 10^3/uL (0.0-0.5); EOS % 0.9 % (0.0-3.0); HEMATOCRIT 28.1 % (42.0-52.0); LYMPH # 1.2 10^3/uL (1.5-5.0); LYMPH % 20.7 % (24.0-44.0); MEAN CORPUSCULAR HEMOGLOBIN 30.3 pg (27.0-33.0); MEAN CORPUSCULAR VOLUME 94.6 fl (80.0-96.0); MONO # 0.6 10^3/uL (0.0-0.8); MONO % 10.4 % (2.0-8.0); NEUTROPHILS # 3.8 10^3/uL (1.5-8.5); NEUTROPHILS % 66.7 % (36.0-66.0); PLATELET COUNT, AUTOMATED 132 10^3/uL (150-450); RED BLOOD COUNT 2.97 10^6/uL (4.30-6.10); WHITE BLOOD COUNT 5.7 10^3/uL (4.0-10.0)
[2022-04-22 09:37] LABS: ALBUMIN 1.6 GM/DL (3.2-5.2); BILIRUBIN,TOTAL 0.7 MG/DL (0.2-1.0); CALCIUM LEVEL 8.8 MG/DL (8.5-10.1); CREATININE FOR GFR 6.09 MG/DL (0.70-1.30); GLOMERULAR FILTRATION RATE 10.3 (>56); MAGNESIUM LEVEL 2.1 MG/DL (1.8-2.4); POTASSIUM SERUM 4.3 MEQ/L (3.5-5.1); TOTAL PROTEIN 6.5 GM/DL (6.4-8.2)
[2022-04-22 14:00] VITALS: BP 138/72
[2022-04-22 20:44] VITALS: BP 124/51
[2022-04-23] MEDS: ALBUTEROL 90 MCG/ACT 8GM HFA INHALER INH SCH ×3 (00:04→07:16)
[2022-04-23 05:47] VITALS: BP 112/54
[2022-04-23] MEDS: LIDOCAINE 5% OINT 30GM TUBE TOP SCH ×2 (05:56→21:23)
[2022-04-23] MEDS: DICLOFENAC EPOLAMINE 1.3 % PATCH TOP SCH ×2 (05:56→21:22)
[2022-04-23] MEDS: SUCROFERRIC OXYHYDROXIDE 500MG CHEW TAB (VELPHORO) PO SCH ×3 (05:56→17:07)
[2022-04-23] MEDS: PANTOPRAZOLE 40MG TAB (PROTONIX) PO SCH (05:57)
[2022-04-23] MEDS: GABAPENTIN 100 MG CAP PO SCH ×2 (05:57→21:23)
[2022-04-23] MEDS: LACTOBACILLUS ACIDOPHILUS CAP (BACID) PO SCH ×4 (05:57→21:23)
[2022-04-23] MEDS: APIXABAN 2.5 MG TAB (ELIQUIS) PO SCH ×2 (05:57→21:23)
[2022-04-23] MEDS: CLOPIDOGREL 75 MG TAB PO SCH (05:57)
[2022-04-23] MEDS: LACTIC ACID 12% LOTION 225 GM BTL TOP SCH (05:58)
[2022-04-23] MEDS ORDERED: SODIUM CHLORIDE 0.9% 1000ML IV PRN (06:00)
[2022-04-23 06:23] LABS: BASO % 0.4 % (0.0-1.0); EOS # 0.1 10^3/uL (0.0-0.5); EOS % 1.3 % (0.0-3.0); HEMATOCRIT 28.3 % (42.0-52.0); HEMOGLOBIN 8.8 g/dl (13.5-17.5); LYMPH # 1.1 10^3/uL (1.5-5.0); LYMPH % 21.6 % (24.0-44.0); MEAN CORPUSCULAR HEMOGLOBIN 29.7 pg (27.0-33.0); MEAN CORPUSCULAR HGB CONC 31.1 g/dl (32.0-36.5); MEAN CORPUSCULAR VOLUME 95.6 fl (80.0-96.0); MONO # 0.6 10^3/uL (0.0-0.8); MONO % 10.6 % (2.0-8.0); NEUTROPHILS # 3.5 10^3/uL (1.5-8.5); NEUTROPHILS % 65.2 % (36.0-66.0); PLATELET COUNT, AUTOMATED 169 10^3/uL (150-450); RED BLOOD COUNT 2.96 10^6/uL (4.30-6.10); WHITE BLOOD COUNT 5.3 10^3/uL (4.0-10.0)
[2022-04-23 06:39] LABS: ALBUMIN 1.7 GM/DL (3.2-5.2); BILIRUBIN,TOTAL 0.6 MG/DL (0.2-1.0); CALCIUM LEVEL 8.6 MG/DL (8.5-10.1); CREATININE FOR GFR 7.05 MG/DL (0.70-1.30); GLOMERULAR FILTRATION RATE 8.7 (>56); MAGNESIUM LEVEL 2.3 MG/DL (1.8-2.4); POTASSIUM SERUM 4.7 MEQ/L (3.5-5.1); TOTAL PROTEIN 5.9 GM/DL (6.4-8.2)
[2022-04-23] MEDS: ADVAIR HFA 230/21MCG INHALER INH SCH ×2 (07:16→20:00)
[2022-04-23] MEDS: INSULIN LISPRO (NovoLOG) PER UNIT SC SCH ×4 (07:49→21:00)
[2022-04-23] MEDS: LEVEMIR (INSULIN DETEMIR) 1 UNITS/0.01ML SC SCH ×2 (07:49→21:23)
[2022-04-23] MEDS ORDERED: ALBUTEROL 90 MCG/ACT 8GM HFA INHALER INH PRN (11:05)
[2022-04-23 14:00] VITALS: BP 174/91
[2022-04-23 22:00] VITALS: BP 124/57
[2022-04-23] MEDS ORDERED: MIRALAX *UNIT DOSE* 17GM PACKET PO PRN (22:45)
[2022-04-24 06:00] VITALS: BP 115/43
[2022-04-24 06:45] LABS: BASO % 0.2 % (0.0-1.0); EOS # 0.1 10^3/uL (0.0-0.5); EOS % 1.4 % (0.0-3.0); HEMATOCRIT 27.6 % (42.0-52.0); HEMOGLOBIN 8.6 g/dl (13.5-17.5); LYMPH % 19.6 % (24.0-44.0); MEAN CORPUSCULAR HEMOGLOBIN 29.2 pg (27.0-33.0); MEAN CORPUSCULAR HGB CONC 31.2 g/dl (32.0-36.5); MEAN CORPUSCULAR VOLUME 93.6 fl (80.0-96.0); MONO # 0.5 10^3/uL (0.0-0.8); MONO % 10.6 % (2.0-8.0); NEUTROPHILS # 3.4 10^3/uL (1.5-8.5); NEUTROPHILS % 67.2 % (36.0-66.0); PLATELET COUNT, AUTOMATED 208 10^3/uL (150-450); RED BLOOD COUNT 2.95 10^6/uL (4.30-6.10)
[2022-04-24 06:49] VITALS: BP 117/44
[2022-04-24 07:12] LABS: ALBUMIN 1.8 GM/DL (3.2-5.2); BILIRUBIN,TOTAL 0.8 MG/DL (0.2-1.0); CREATININE FOR GFR 5.08 MG/DL (0.70-1.30); GLOMERULAR FILTRATION RATE 12.7 (>56); MAGNESIUM LEVEL 2.1 MG/DL (1.8-2.4); POTASSIUM SERUM 3.6 MEQ/L (3.5-5.1); TOTAL PROTEIN 5.7 GM/DL (6.4-8.2)
[2022-04-24] MEDS: ADVAIR HFA 230/21MCG INHALER INH SCH ×2 (07:36→19:54)
[2022-04-24] MEDS: LEVEMIR (INSULIN DETEMIR) 1 UNITS/0.01ML SC SCH ×2 (09:02→20:42)
[2022-04-24] MEDS: INSULIN LISPRO (NovoLOG) PER UNIT SC SCH ×4 (09:02→20:37)
[2022-04-24] MEDS: SUCROFERRIC OXYHYDROXIDE 500MG CHEW TAB (VELPHORO) PO SCH ×3 (09:02→17:27)
[2022-04-24] MEDS: PANTOPRAZOLE 40MG TAB (PROTONIX) PO SCH (09:02)
[2022-04-24] MEDS: DICLOFENAC EPOLAMINE 1.3 % PATCH TOP SCH ×2 (09:02→20:29)
[2022-04-24] MEDS: CLOPIDOGREL 75 MG TAB PO SCH (09:03)
[2022-04-24] MEDS: LACTOBACILLUS ACIDOPHILUS CAP (BACID) PO SCH ×4 (09:03→20:28)
[2022-04-24] MEDS: GABAPENTIN 100 MG CAP PO SCH ×2 (09:03→20:28)
[2022-04-24] MEDS: APIXABAN 2.5 MG TAB (ELIQUIS) PO SCH ×2 (09:03→20:28)
[2022-04-24] MEDS: LIDOCAINE 5% OINT 30GM TUBE TOP SCH ×2 (10:01→20:30)
[2022-04-24] MEDS: LACTIC ACID 12% LOTION 225 GM BTL TOP SCH (10:01)
[2022-04-24 14:00] VITALS: BP 106/64
[2022-04-24 22:00] VITALS: BP 121/64
[2022-04-25] VITALS (19 sets, daily range): BP systolic 63–138; BP diastolic 40–76
[2022-04-25] MEDS ORDERED: SODIUM CHLORIDE 0.9% 1000ML IV PRN (06:00)
[2022-04-25] MEDS: CLOPIDOGREL 75 MG TAB PO SCH (07:03)
[2022-04-25] MEDS: LIDOCAINE 5% OINT 30GM TUBE TOP SCH ×2 (07:17→20:29)
[2022-04-25] MEDS: DICLOFENAC EPOLAMINE 1.3 % PATCH TOP SCH ×2 (07:17→20:28)
[2022-04-25] MEDS ORDERED: DIGOXIN 0.25 MG TAB PO ONE (07:25)
[2022-04-25] MEDS: ADVAIR HFA 230/21MCG INHALER INH SCH ×2 (07:46→19:46)
[2022-04-25 07:57] LABS: CK-MB VALUE MASS 1.9 NG/ML (<3.6); MB/CK RELATIVE INDEX 4.04 (< OR =4)
[2022-04-25] MEDS: LACTOBACILLUS ACIDOPHILUS CAP (BACID) PO SCH ×4 (08:00→20:28)
[2022-04-25] MEDS ORDERED: NS 500 ML IV ONE ×2 (08:00→13:05)
[2022-04-25] MEDS: SUCROFERRIC OXYHYDROXIDE 500MG CHEW TAB (VELPHORO) PO SCH ×3 (08:00→18:00)
[2022-04-25] MEDS: INSULIN LISPRO (NovoLOG) PER UNIT SC SCH ×4 (08:05→20:29)
[2022-04-25 08:36] LABS: BASO % 0.4 % (0.0-1.0); EOS % 0.4 % (0.0-3.0); HEMATOCRIT 30.1 % (42.0-52.0); HEMOGLOBIN 9.3 g/dl (13.5-17.5); LYMPH # 1.5 10^3/uL (1.5-5.0); LYMPH % 27.9 % (24.0-44.0); MEAN CORPUSCULAR HEMOGLOBIN 29.6 pg (27.0-33.0); MEAN CORPUSCULAR HGB CONC 30.9 g/dl (32.0-36.5); MEAN CORPUSCULAR VOLUME 95.9 fl (80.0-96.0); MONO # 0.7 10^3/uL (0.0-0.8); MONO % 13.6 % (2.0-8.0); NEUTROPHILS % 56.4 % (36.0-66.0); PLATELET COUNT, AUTOMATED 258 10^3/uL (150-450); RED BLOOD COUNT 3.14 10^6/uL (4.30-6.10); WHITE BLOOD COUNT 5.4 10^3/uL (4.0-10.0)
[2022-04-25 08:51] LABS: CALCIUM LEVEL 8.7 MG/DL (8.5-10.1); CREATININE FOR GFR 6.3 MG/DL (0.70-1.30); GLOMERULAR FILTRATION RATE 9.9 (>56); MAGNESIUM LEVEL 2.4 MG/DL (1.8-2.4); POTASSIUM SERUM 5.3 MEQ/L (3.5-5.1)
[2022-04-25] MEDS: LACTIC ACID 12% LOTION 225 GM BTL TOP SCH (09:00)
[2022-04-25] MEDS: PANTOPRAZOLE 40MG TAB (PROTONIX) PO SCH (09:56)
[2022-04-25] MEDS: LEVEMIR (INSULIN DETEMIR) 1 UNITS/0.01ML SC SCH ×2 (09:56→20:31)
[2022-04-25] MEDS: GABAPENTIN 100 MG CAP PO SCH ×2 (09:57→20:28)
[2022-04-25] MEDS: APIXABAN 2.5 MG TAB (ELIQUIS) PO SCH ×2 (09:58→20:28)
[2022-04-25] MEDS: traMADol 50 MG TAB PO PRN (09:58)
[2022-04-25] MEDS ORDERED: DIGOXIN INJ 0.5 MG/2 ML AMP (J1160) IV ONE ×2 (10:35→16:00)
[2022-04-25] MEDS ORDERED: KETOROLAC 30 MG/ML 1ML VIAL IV ONE (10:35)
[2022-04-25 11:14] LABS: CREATININE FOR GFR 6.56 MG/DL (0.70-1.30); GLOMERULAR FILTRATION RATE 9.5 (>56); POTASSIUM SERUM 5.2 MEQ/L (3.5-5.1)
[2022-04-25 11:19] LABS: CK-MB VALUE MASS 1.6 NG/ML (<3.6); MB/CK RELATIVE INDEX 6.15 (< OR =4)
[2022-04-25] MEDS ORDERED: PATIROMER SORBITEX CALCIUM 8.4 GM POWDER PACKET (VELTASSA) PO ONE (13:00)
[2022-04-25 17:34] LABS: ABG BASE EXCESS -6.8 (-2.0-2.0); ABG HCO3 19.1 MEQ/L (22.0-26.0); ABG PARTIAL PRESSURE CO2 39.9 mmHg (35.0-45.0); ABG PARTIAL PRESSURE O2 70.1 mmHg (75.0-100.0); ABG STANDARD HCO3 18.8 MEQ/L (22.0-26.0); ABG TOTAL CO2 20.3 MEQ/L (22.0-29.0); ABG pH (ARTERIAL) 7.298 UNITS (7.350-7.450)
[2022-04-26] VITALS (13 sets, daily range): BP systolic 95–161; BP diastolic 58–87
[2022-04-26] MEDS ORDERED: SODIUM CHLORIDE 0.9% 1000ML IV PRN (06:00)
[2022-04-26 06:43] LABS: BASO % 0.4 % (0.0-1.0); EOS # 0.1 10^3/uL (0.0-0.5); EOS % 1.1 % (0.0-3.0); HEMATOCRIT 28.2 % (42.0-52.0); HEMOGLOBIN 8.9 g/dl (13.5-17.5); LYMPH # 1.6 10^3/uL (1.5-5.0); LYMPH % 29.7 % (24.0-44.0); MEAN CORPUSCULAR HEMOGLOBIN 30.2 pg (27.0-33.0); MEAN CORPUSCULAR HGB CONC 31.6 g/dl (32.0-36.5); MEAN CORPUSCULAR VOLUME 95.6 fl (80.0-96.0); MONO # 0.8 10^3/uL (0.0-0.8); MONO % 14.2 % (2.0-8.0); NEUTROPHILS # 2.8 10^3/uL (1.5-8.5); NEUTROPHILS % 53.1 % (36.0-66.0); PLATELET COUNT, AUTOMATED 334 10^3/uL (150-450); RED BLOOD COUNT 2.95 10^6/uL (4.30-6.10); WHITE BLOOD COUNT 5.3 10^3/uL (4.0-10.0)
[2022-04-26] MEDS: ADVAIR HFA 230/21MCG INHALER INH SCH ×2 (07:03→18:57)
[2022-04-26 07:09] LABS: ALBUMIN 1.8 GM/DL (3.2-5.2); CALCIUM LEVEL 8.3 MG/DL (8.5-10.1); CREATININE FOR GFR 7.48 MG/DL (0.70-1.30); GLOMERULAR FILTRATION RATE 8.1 (>56); TOTAL PROTEIN 5.9 GM/DL (6.4-8.2)
[2022-04-26] MEDS: INSULIN LISPRO (NovoLOG) PER UNIT SC SCH ×4 (07:30→20:25)
[2022-04-26] MEDS: LEVEMIR (INSULIN DETEMIR) 1 UNITS/0.01ML SC SCH ×2 (08:23→21:26)
[2022-04-26] MEDS: LACTOBACILLUS ACIDOPHILUS CAP (BACID) PO SCH ×4 (08:23→21:25)
[2022-04-26] MEDS: SUCROFERRIC OXYHYDROXIDE 500MG CHEW TAB (VELPHORO) PO SCH ×3 (08:24→18:37)
[2022-04-26] MEDS: GABAPENTIN 100 MG CAP PO SCH ×2 (08:24→21:25)
[2022-04-26] MEDS: APIXABAN 2.5 MG TAB (ELIQUIS) PO SCH ×2 (08:24→21:25)
[2022-04-26] MEDS: DIGOXIN 0.25 MG TAB PO SCH (08:24)
[2022-04-26] MEDS: CLOPIDOGREL 75 MG TAB PO SCH (08:24)
[2022-04-26] MEDS: DICLOFENAC EPOLAMINE 1.3 % PATCH TOP SCH ×2 (08:27→21:26)
[2022-04-26] MEDS: PANTOPRAZOLE 40MG TAB (PROTONIX) PO SCH (08:28)
[2022-04-26] MEDS: LIDOCAINE 5% OINT 30GM TUBE TOP SCH ×2 (16:00→21:00)
[2022-04-26] MEDS: LACTIC ACID 12% LOTION 225 GM BTL TOP SCH (17:20)
[2022-04-26] MEDS: traMADol 50 MG TAB PO PRN (21:35)
[2022-04-27] VITALS: BP 128/58
[2022-04-27 04:00] VITALS: BP 157/62
[2022-04-27 06:37] LABS: HEMATOCRIT 27.4 % (42.0-52.0); HEMOGLOBIN 8.6 g/dl (13.5-17.5); MEAN CORPUSCULAR HEMOGLOBIN 30.2 pg (27.0-33.0); MEAN CORPUSCULAR HGB CONC 31.4 g/dl (32.0-36.5); MEAN CORPUSCULAR VOLUME 96.1 fl (80.0-96.0); PLATELET COUNT, AUTOMATED 402 10^3/uL (150-450); RED BLOOD COUNT 2.85 10^6/uL (4.30-6.10)
[2022-04-27] MEDS: ADVAIR HFA 230/21MCG INHALER INH SCH ×2 (07:26→20:05)
[2022-04-27 07:33] LABS: CALCIUM LEVEL 8.7 MG/DL (8.5-10.1); CREATININE FOR GFR 5.02 MG/DL (0.70-1.30); GLOMERULAR FILTRATION RATE 12.9 (>56); POTASSIUM SERUM 3.8 MEQ/L (3.5-5.1)
[2022-04-27 08:00] VITALS: BP 131/59
[2022-04-27] MEDS: CLOPIDOGREL 75 MG TAB PO SCH (08:29)
[2022-04-27] MEDS: LEVEMIR (INSULIN DETEMIR) 1 UNITS/0.01ML SC SCH ×2 (08:29→21:08)
[2022-04-27] MEDS: INSULIN LISPRO (NovoLOG) PER UNIT SC SCH ×4 (08:29→21:00)
[2022-04-27] MEDS: PANTOPRAZOLE 40MG TAB (PROTONIX) PO SCH (08:29)
[2022-04-27] MEDS: LACTOBACILLUS ACIDOPHILUS CAP (BACID) PO SCH ×4 (08:29→21:07)
[2022-04-27] MEDS: SUCROFERRIC OXYHYDROXIDE 500MG CHEW TAB (VELPHORO) PO SCH ×3 (08:29→18:01)
[2022-04-27] MEDS: DICLOFENAC EPOLAMINE 1.3 % PATCH TOP SCH ×2 (08:30→21:07)
[2022-04-27] MEDS: APIXABAN 2.5 MG TAB (ELIQUIS) PO SCH ×2 (08:30→21:07)
[2022-04-27] MEDS: DIGOXIN 0.25 MG TAB PO SCH (08:30)
[2022-04-27] MEDS: GABAPENTIN 100 MG CAP PO SCH ×2 (08:30→21:07)
[2022-04-27] MEDS: LIDOCAINE 5% OINT 30GM TUBE TOP SCH ×2 (08:32→21:14)
[2022-04-27] MEDS: LACTIC ACID 12% LOTION 225 GM BTL TOP SCH (08:32)
[2022-04-27] MEDS ORDERED: ONDANSETRON 4MG ORAL DISINTEGRATING TAB PO ONE (10:00)
[2022-04-27 12:00] VITALS: BP 125/58
[2022-04-27 16:00] VITALS: BP 115/52
[2022-04-27 19:07] VITALS: BP 136/62
[2022-04-28 00:38] VITALS: BP 131/53
[2022-04-28 04:00] VITALS: BP 128/53
[2022-04-28] MEDS: SODIUM CHLORIDE 0.9% INJ 10 ML SYR IV SCH ×2 (06:21→17:34)
[2022-04-28 07:55] VITALS: BP 118/60
[2022-04-28] MEDS ORDERED: LIDOCAINE 1% SDV 5ML VIAL SC PRN (08:15)
[2022-04-28] MEDS ORDERED: SODIUM CHLORIDE 0.9% 1000ML IV PRN (08:15)
[2022-04-28] MEDS: ADVAIR HFA 230/21MCG INHALER INH SCH ×2 (08:40→20:58)
[2022-04-28 09:11] LABS: BASO % 0.4 % (0.0-1.0); EOS # 0.1 10^3/uL (0.0-0.5); HEMATOCRIT 28.6 % (42.0-52.0); HEMOGLOBIN 8.7 g/dl (13.5-17.5); LYMPH # 0.8 10^3/uL (1.5-5.0); LYMPH % 16.1 % (24.0-44.0); MEAN CORPUSCULAR HEMOGLOBIN 29.1 pg (27.0-33.0); MEAN CORPUSCULAR HGB CONC 30.4 g/dl (32.0-36.5); MEAN CORPUSCULAR VOLUME 95.7 fl (80.0-96.0); MONO # 0.7 10^3/uL (0.0-0.8); MONO % 14.9 % (2.0-8.0); NEUTROPHILS # 3.3 10^3/uL (1.5-8.5); NEUTROPHILS % 65.6 % (36.0-66.0); PLATELET COUNT, AUTOMATED 413 10^3/uL (150-450); RED BLOOD COUNT 2.99 10^6/uL (4.30-6.10)
[2022-04-28 09:56] LABS: ALBUMIN 1.8 GM/DL (3.2-5.2); BILIRUBIN,TOTAL 0.7 MG/DL (0.2-1.0); CALCIUM LEVEL 7.9 MG/DL (8.5-10.1); CREATININE FOR GFR 6.17 MG/DL (0.70-1.30); DIGOXIN LEVEL 1.8 NG/ML (0.5-2.0); GLOMERULAR FILTRATION RATE 10.2 (>56); POTASSIUM SERUM 4.8 MEQ/L (3.5-5.1); TOTAL PROTEIN 5.7 GM/DL (6.4-8.2)
[2022-04-28] MEDS: INSULIN LISPRO (NovoLOG) PER UNIT SC SCH ×4 (10:14→21:00)
[2022-04-28] MEDS: DICLOFENAC EPOLAMINE 1.3 % PATCH TOP SCH ×2 (10:14→21:32)
[2022-04-28] MEDS: LEVEMIR (INSULIN DETEMIR) 1 UNITS/0.01ML SC SCH ×2 (10:14→21:31)
[2022-04-28] MEDS: GABAPENTIN 100 MG CAP PO SCH ×2 (10:15→21:31)
[2022-04-28] MEDS: ACETAMINOPHEN TAB 650MG DOSE (2X325MG) PO PRN (10:15)
[2022-04-28] MEDS: CLOPIDOGREL 75 MG TAB PO SCH (10:16)
[2022-04-28] MEDS: DIGOXIN 0.125 MG TAB PO SCH (10:16)
[2022-04-28] MEDS: PANTOPRAZOLE 40MG TAB (PROTONIX) PO SCH (10:16)
[2022-04-28] MEDS: SUCROFERRIC OXYHYDROXIDE 500MG CHEW TAB (VELPHORO) PO SCH ×3 (10:16→17:31)
[2022-04-28] MEDS: LACTOBACILLUS ACIDOPHILUS CAP (BACID) PO SCH ×4 (10:16→21:31)
[2022-04-28] MEDS: LIDOCAINE 5% OINT 30GM TUBE TOP SCH ×2 (10:17→21:00)
[2022-04-28] MEDS: APIXABAN 2.5 MG TAB (ELIQUIS) PO SCH ×2 (10:17→21:31)
[2022-04-28] MEDS: LACTIC ACID 12% LOTION 225 GM BTL TOP SCH (10:18)
[2022-04-28 16:34] VITALS: BP 145/80
[2022-04-28] MEDS: traMADol 50 MG TAB PO PRN (17:32)
[2022-04-28 20:27] LABS: PERCENT SATURATION 29.2 % (19.7-50.0)
[2022-04-28 21:45] VITALS: BP 106/64
[2022-04-29] VITALS (7 sets, daily range): BP systolic 99–140; BP diastolic 51–61
[2022-04-29] MEDS: SODIUM CHLORIDE 0.9% INJ 10 ML SYR IV SCH ×2 (05:46→17:51)
[2022-04-29] MEDS: ADVAIR HFA 230/21MCG INHALER INH SCH ×2 (08:14→20:00)
[2022-04-29] MEDS: SENOKOT S TAB PO SCH ×2 (09:00→20:10)
[2022-04-29] MEDS: LACTOBACILLUS ACIDOPHILUS CAP (BACID) PO SCH ×4 (09:09→20:10)
[2022-04-29] MEDS: APIXABAN 2.5 MG TAB (ELIQUIS) PO SCH ×2 (09:10→20:10)
[2022-04-29] MEDS: DIGOXIN 0.125 MG TAB PO SCH (09:10)
[2022-04-29] MEDS: INSULIN LISPRO (NovoLOG) PER UNIT SC SCH ×4 (09:19→20:11)
[2022-04-29] MEDS: GABAPENTIN 100 MG CAP PO SCH ×2 (10:02→20:10)
[2022-04-29] MEDS: CLOPIDOGREL 75 MG TAB PO SCH (10:03)
[2022-04-29] MEDS: PANTOPRAZOLE 40MG TAB (PROTONIX) PO SCH (10:03)
[2022-04-29] MEDS: SUCROFERRIC OXYHYDROXIDE 500MG CHEW TAB (VELPHORO) PO SCH ×3 (10:04→18:06)
[2022-04-29] MEDS: LEVEMIR (INSULIN DETEMIR) 1 UNITS/0.01ML SC SCH ×2 (10:04→20:09)
[2022-04-29] MEDS: DICLOFENAC EPOLAMINE 1.3 % PATCH TOP SCH ×2 (10:04→20:11)
[2022-04-29] MEDS ORDERED: MOM 30ML SUSPENSION UDC PO ONE (10:45)
[2022-04-29] MEDS: LIDOCAINE 5% OINT 30GM TUBE TOP SCH ×2 (12:52→21:00)
[2022-04-29] MEDS: LACTIC ACID 12% LOTION 225 GM BTL TOP SCH (12:52)
[2022-04-29] MEDS: traMADol 50 MG TAB PO PRN (18:05)
[2022-04-30] MEDS: SODIUM CHLORIDE 0.9% INJ 10 ML SYR IV SCH ×2 (05:45→18:31)
[2022-04-30] MEDS: SODIUM CHLORIDE 0.9% INJ 10 ML SYR IV PRN (05:45)
[2022-04-30 05:49] VITALS: BP 137/57
[2022-04-30 06:05] LABS: BASO # 0.1 10^3/uL (0.0-0.2); BASO % 0.9 % (0.0-1.0); EOS % 0.7 % (0.0-3.0); HEMATOCRIT 28.7 % (42.0-52.0); HEMOGLOBIN 8.6 g/dl (13.5-17.5); LYMPH # 1.4 10^3/uL (1.5-5.0); LYMPH % 26.2 % (24.0-44.0); MEAN CORPUSCULAR HEMOGLOBIN 29.3 pg (27.0-33.0); MEAN CORPUSCULAR VOLUME 97.6 fl (80.0-96.0); MONO # 0.9 10^3/uL (0.0-0.8); MONO % 15.7 % (2.0-8.0); NEUTROPHILS # 2.9 10^3/uL (1.5-8.5); NEUTROPHILS % 52.7 % (36.0-66.0); PLATELET COUNT, AUTOMATED 431 10^3/uL (150-450); RED BLOOD COUNT 2.94 10^6/uL (4.30-6.10); WHITE BLOOD COUNT 5.5 10^3/uL (4.0-10.0)
[2022-04-30 06:27] LABS: CALCIUM LEVEL 8.7 MG/DL (8.5-10.1); CREATININE FOR GFR 5.04 MG/DL (0.70-1.30); GLOMERULAR FILTRATION RATE 12.8 (>56); POTASSIUM SERUM 4.5 MEQ/L (3.5-5.1)
[2022-04-30] MEDS: CLOPIDOGREL 75 MG TAB PO SCH (06:29)
[2022-04-30] MEDS: LACTOBACILLUS ACIDOPHILUS CAP (BACID) PO SCH ×4 (06:29→21:04)
[2022-04-30] MEDS: GABAPENTIN 100 MG CAP PO SCH ×2 (06:29→21:04)
[2022-04-30] MEDS: APIXABAN 2.5 MG TAB (ELIQUIS) PO SCH ×2 (06:30→21:05)
[2022-04-30] MEDS: DIGOXIN 0.125 MG TAB PO SCH (06:30)
[2022-04-30] MEDS: SENOKOT S TAB PO SCH ×2 (06:30→21:04)
[2022-04-30] MEDS: SUCROFERRIC OXYHYDROXIDE 500MG CHEW TAB (VELPHORO) PO SCH ×4 (06:30→21:05)
[2022-04-30 06:31] LABS: ALBUMIN 1.9 GM/DL (3.2-5.2); BILIRUBIN,DIRECT 0.4 MG/DL (0.0-0.2); BILIRUBIN,TOTAL 0.6 MG/DL (0.2-1.0); TOTAL PROTEIN 5.9 GM/DL (6.4-8.2)
[2022-04-30] MEDS: LIDOCAINE 5% OINT 30GM TUBE TOP SCH ×2 (06:31→21:10)
[2022-04-30] MEDS: DICLOFENAC EPOLAMINE 1.3 % PATCH TOP SCH ×2 (06:31→21:09)
[2022-04-30] MEDS: PANTOPRAZOLE 40MG TAB (PROTONIX) PO SCH (06:33)
[2022-04-30] MEDS: ADVAIR HFA 230/21MCG INHALER INH SCH ×2 (07:21→20:58)
[2022-04-30] MEDS: LEVEMIR (INSULIN DETEMIR) 1 UNITS/0.01ML SC SCH ×2 (07:59→21:04)
[2022-04-30] MEDS: INSULIN LISPRO (NovoLOG) PER UNIT SC SCH ×4 (08:01→21:00)
[2022-04-30] MEDS ORDERED: DARBEPOETIN 200MCG/0.4ML *DIALYSIS* SYRINGE (J0882 PER 1MCG) IV SCH (08:10)
[2022-04-30] MEDS ORDERED: LIDOCAINE 1% SDV 5ML VIAL SC PRN (08:10)
[2022-04-30] MEDS ORDERED: SODIUM CHLORIDE 0.9% 1000ML IV PRN (08:10)
[2022-04-30] MEDS: traMADol 50 MG TAB PO PRN (11:29)
[2022-04-30 14:00] VITALS: BP 146/98
[2022-04-30] MEDS ORDERED: NORCO, ANEXSIA 5/325MG TABLET (HYDROcodone/ACETAMINOPHEN) PO ONE (14:20)
[2022-04-30] MEDS ORDERED: KETOROLAC 30 MG/ML 1ML VIAL IV ONE (14:30)
[2022-04-30] MEDS: LACTIC ACID 12% LOTION 225 GM BTL TOP SCH (18:29)
[2022-04-30 19:25] LABS: CK-MB VALUE MASS 2.9 NG/ML (<3.6); MB/CK RELATIVE INDEX 22.31 (< OR =4)
[2022-05-01] MEDS: SODIUM CHLORIDE 0.9% INJ 10 ML SYR IV SCH (05:22)
[2022-05-01] MEDS: SODIUM CHLORIDE 0.9% INJ 10 ML SYR IV PRN (05:23)
[2022-05-01 05:37] VITALS: BP 142/76
[2022-05-01] MEDS: ADVAIR HFA 230/21MCG INHALER INH SCH (07:54)
[2022-05-01] MEDS: LEVEMIR (INSULIN DETEMIR) 1 UNITS/0.01ML SC SCH (08:03)
[2022-05-01] MEDS: INSULIN LISPRO (NovoLOG) PER UNIT SC SCH ×2 (08:04→12:48)
[2022-05-01] MEDS: DICLOFENAC EPOLAMINE 1.3 % PATCH TOP SCH (08:05)
[2022-05-01] MEDS: SENOKOT S TAB PO SCH (08:05)
[2022-05-01] MEDS: GABAPENTIN 100 MG CAP PO SCH (08:05)
[2022-05-01] MEDS: LACTOBACILLUS ACIDOPHILUS CAP (BACID) PO SCH ×2 (08:05→12:48)
[2022-05-01] MEDS: CLOPIDOGREL 75 MG TAB PO SCH (08:08)
[2022-05-01] MEDS: PANTOPRAZOLE 40MG TAB (PROTONIX) PO SCH (08:08)
[2022-05-01] MEDS: SUCROFERRIC OXYHYDROXIDE 500MG CHEW TAB (VELPHORO) PO SCH ×2 (08:08→12:48)
[2022-05-01] MEDS: APIXABAN 2.5 MG TAB (ELIQUIS) PO SCH (08:08)
[2022-05-01] MEDS: DIGOXIN 0.125 MG TAB PO SCH (08:08)
[2022-05-01] MEDS: LIDOCAINE 5% OINT 30GM TUBE TOP SCH (08:25)
[2022-05-01] MEDS: traMADol 50 MG TAB PO PRN (12:30)
[2022-05-01] MEDS: LACTIC ACID 12% LOTION 225 GM BTL TOP SCH (12:49)
[2022-05-01] MEDS ORDERED: DICL1PAT6 TOP (13:39)
[2022-05-01] MEDS ORDERED: SENN-52 PO (13:39)
[2022-05-01] MEDS ORDERED: DIGO0.123 PO (13:39)
[2022-05-01] MEDS ORDERED: LIDO5OIN19 TOP (13:39)
[2022-05-01] MEDS ORDERED: TRAM50TA2 PO (13:39)
== END 2022-05-01 14:30 | DRG 296 ==
LOC: M ED INP 01:36 → M ICU 02:00 → M PCU 08:29 → M ICU 08:29 → M PCU 04-19 08:42 → M MSPAV 04-21 17:57 → M ICU 04-25 09:30 → M PCU 04-26 13:20 → M MS5PR 04-28 12:18
PROVIDERS: ADMIT Family Medicine; ATTEND Internal Medicine
PROC: 5A1D70Z Performance of Urinary Filtration, Intermittent, Less than 6 Hours Per Day (ICD-10-PCS; principal; 2022-04-17)
PROC: 30233N1 Transfusion of Nonautologous Red Blood Cells into Peripheral Vein, Percutaneous Approach (ICD-10-PCS; 2022-04-19)
DX: I46.9 Cardiac arrest, cause unspecified (principal); N18.6 End stage renal disease; J96.02 Acute respiratory failure with hypercapnia; I50.42 Chronic combined systolic (congestive) and diastolic (congestive) heart failure; I13.2 Hypertensive heart and chronic kidney disease with heart failure and with stage 5 chronic kidney disease, or end stage renal disease; R57.9 Shock, unspecified; E87.2 Acidosis; L97.528 Non-pressure chronic ulcer of other part of left foot with other specified severity; I25.10 Atherosclerotic heart disease of native coronary artery without angina pectoris; I27.20 Pulmonary hypertension, unspecified; E11.621 Type 2 diabetes mellitus with foot ulcer; E11.22 Type 2 diabetes mellitus with diabetic chronic kidney disease; I70.345 Atherosclerosis of unspecified type of bypass graft(s) of the left leg with ulceration of other part of foot; E11.51 Type 2 diabetes mellitus with diabetic peripheral angiopathy without gangrene; I50.810 Right heart failure, unspecified; E11.40 Type 2 diabetes mellitus with diabetic neuropathy, unspecified; I89.0 Lymphedema, not elsewhere classified; D69.6 Thrombocytopenia, unspecified; D63.1 Anemia in chronic kidney disease; I48.92 Unspecified atrial flutter; Z99.2 Dependence on renal dialysis; Z89.611 Acquired absence of right leg above knee; Z95.820 Peripheral vascular angioplasty status with implants and grafts; Z90.49 Acquired absence of other specified parts of digestive tract; Z79.4 Long term (current) use of insulin; Z79.02 Long term (current) use of antithrombotics/antiplatelets; Z79.899 Other long term (current) drug therapy; Z88.6 Allergy status to analgesic agent; Z91.018 Allergy to other foods; Z91.048 Other nonmedicinal substance allergy status

== ENCOUNTER 2022-05-12 11:14 | Inpatient (IN) | payer MEDICARE, MEDICAID ==
[~2022-05-12] VITALS: Ht 190.5 cm; Wt 97.5 kg
[2022-05-12] VITALS (9 sets, daily range): BP systolic 125–177; BP diastolic 54–72
[~2022-05-12 11:14] MED LIST changes: +DICL1PAT6 TOP; +DIGO0.123 PO; +LANT1000 PO; +LIDO5OIN19 TOP; +SENN-52 PO; +TRAM50TA2 PO
[2022-05-12 12:55] LABS: HEMATOCRIT 32.6 % (42.0-52.0); HEMOGLOBIN 9.6 g/dl (13.5-17.5); MEAN CORPUSCULAR HEMOGLOBIN 29.2 pg (27.0-33.0); MEAN CORPUSCULAR HGB CONC 29.4 g/dl (32.0-36.5); MEAN CORPUSCULAR VOLUME 99.1 fl (80.0-96.0); PLATELET COUNT, AUTOMATED 347 10^3/uL (150-450); RED BLOOD COUNT 3.29 10^6/uL (4.30-6.10); WHITE BLOOD COUNT 16.7 10^3/uL (4.0-10.0)
[2022-05-12] MEDS: COMBIVENT RESPIMAT 100-20MCG INHALER 4GM INH SCH ×3 (13:12→14:22)
[2022-05-12 13:22] LABS: ALBUMIN 2.2 GM/DL (3.2-5.2); BILIRUBIN,DIRECT 0.7 MG/DL (0.0-0.2); BILIRUBIN,TOTAL 1.2 MG/DL (0.2-1.0); CALCIUM LEVEL 8.1 MG/DL (8.5-10.1); CREATININE FOR GFR 3.38 MG/DL (0.70-1.30); GLOMERULAR FILTRATION RATE 20.3 (>56); POTASSIUM SERUM 4.1 MEQ/L (3.5-5.1); TOTAL PROTEIN 6.5 GM/DL (6.4-8.2)
[2022-05-12 13:25] LABS: ATYPICAL LYMPH 5 % (0-5); LYMPHOCYTES 14 % (16-44); METAMYELOCYTES 2 % (0-0); MONOCYTES 8 % (0-5); MYELOCYTES 3 % (0-0); NEUTROPHILS 66 % (28-66)
[2022-05-12 13:27] LABS: OVALOCYTES 1+
[2022-05-12 13:28] LABS: POLYCHROMASIA 1+
[2022-05-12 13:29] LABS: MICROCYTOSIS 1+; PLATELET ESTIMATE NORMAL (NORMAL)
[2022-05-12 13:30] LABS: CRENATED RBC 1+
[2022-05-12 14:02] LABS: RSV AMPLIFICATION NEGATIVE (NEGATIVE)
[2022-05-12] MEDS ORDERED: FUROSEMIDE 40MG/4ML VIAL (J1940) IV ONE (14:50)
[2022-05-12] MEDS ORDERED: D5W/0.9% SODIUM CHLORIDE 1,000 ML IV SCH (17:45)
[2022-05-12] MEDS ORDERED: DICLOFENAC EPOLAMINE 1.3 % PATCH TOP SCH ×2 (17:50→18:55)
[2022-05-12] MEDS ORDERED: VITMTA PO (18:27)
[2022-05-12] MEDS ORDERED: MILKSUS3 PO (18:27)
[2022-05-12] MEDS ORDERED: DIGO0.123 PO (18:27)
[2022-05-12] MEDS ORDERED: HOME MED LIST COMPLETE! XX SCH (18:30)
[2022-05-12 18:38] LABS: ALBUMIN 2.2 GM/DL (3.2-5.2); BILIRUBIN,TOTAL 1.2 MG/DL (0.2-1.0); CALCIUM LEVEL 8.8 MG/DL (8.5-10.1); CREATININE FOR GFR 3.48 MG/DL (0.70-1.30); GLOMERULAR FILTRATION RATE 19.7 (>56); MAGNESIUM LEVEL 2.2 MG/DL (1.8-2.4); PHOSPHORUS LEVEL 3.8 MG/DL (2.5-4.9); POTASSIUM SERUM 4.1 MEQ/L (3.5-5.1); TOTAL PROTEIN 6.4 GM/DL (6.4-8.2)
[2022-05-12] MEDS ORDERED: ALBUTEROL 90 MCG/ACT 8GM HFA INHALER INH PRN (18:55)
[2022-05-12] MEDS ORDERED: MOM 30ML SUSPENSION UDC PO PRN (18:55)
[2022-05-12] MEDS: CLOPIDOGREL 75 MG TAB PO SCH (19:49)
[2022-05-12] MEDS: APIXABAN 2.5 MG TAB (ELIQUIS) PO SCH (19:49)
[2022-05-12] MEDS: LACTOBACILLUS ACIDOPHILUS CAP (BACID) PO SCH (19:49)
[2022-05-12] MEDS: SENOKOT S TAB PO SCH ×2 (19:49→21:00)
[2022-05-12] MEDS: CARVedilol 6.25 MG TAB PO SCH (19:50)
[2022-05-12] MEDS: GABAPENTIN 100 MG CAP PO SCH (19:50)
[2022-05-12] MEDS: DIGOXIN 0.125 MG TAB PO SCH (19:50)
[2022-05-12] MEDS: PIPERACILLIN/TAZOBACTAM SOD 3.375 GM in D5W MINI-BAG PLUS 50 ML IV SCH (19:51)
[2022-05-12] MEDS: LEVEMIR (INSULIN DETEMIR) 1 UNITS/0.01ML SC SCH (19:54)
[2022-05-12 19:58] LABS: ALBUMIN 2.1 GM/DL (3.2-5.2); CALCIUM LEVEL 8.1 MG/DL (8.5-10.1); CREATININE FOR GFR 3.74 MG/DL (0.70-1.30); GLOMERULAR FILTRATION RATE 18.1 (>56); PHOSPHORUS LEVEL 3.9 MG/DL (2.5-4.9); POTASSIUM SERUM 3.8 MEQ/L (3.5-5.1); TOTAL PROTEIN 6.1 GM/DL (6.4-8.2)
[2022-05-12] MEDS: ADVAIR HFA 230/21MCG INHALER INH SCH (20:00)
[2022-05-12] MEDS ORDERED: INSULIN LISPRO (NovoLOG) PER UNIT SC SCH (21:00)
[2022-05-12] MEDS ORDERED: APIXABAN 2.5 MG TAB (ELIQUIS) PO SCH (21:00)
[2022-05-12] MEDS ORDERED: CHLORHEXIDINE GLUCONATE 0.12 % 15ML UDC (PERIDEX ORAL RINSE) MT SCH (21:00)
[2022-05-12] MEDS ORDERED: LIDOCAINE 5% OINT 30GM TUBE TOP SCH (21:00)
[2022-05-12] MEDS: SUCROFERRIC OXYHYDROXIDE 500MG CHEW TAB (VELPHORO) PO SCH (21:12)
[2022-05-12] MEDS ORDERED: GLUCOSE 4GM CHEW TABLET PO PRN (22:35)
[2022-05-12] MEDS ORDERED: GLUCAGON INJ 1MG VIAL SC PRN (22:35)
[2022-05-12] MEDS ORDERED: DEXTROSE 50% 50 ML SYRINGE IV PRN (22:35)
[2022-05-13] VITALS (20 sets, daily range): BP systolic 113–165; BP diastolic 50–70; O2SAT 97
[2022-05-13] MEDS: PIPERACILLIN/TAZOBACTAM SOD 3.375 GM in D5W MINI-BAG PLUS 50 ML IV SCH ×4 (01:09→20:13)
[2022-05-13] MEDS: SUCROFERRIC OXYHYDROXIDE 500MG CHEW TAB (VELPHORO) PO SCH ×3 (07:28→19:11)
[2022-05-13] MEDS: LACTOBACILLUS ACIDOPHILUS CAP (BACID) PO SCH ×4 (07:28→20:11)
[2022-05-13] MEDS: INSULIN LISPRO (NovoLOG) PER UNIT SC SCH ×4 (07:28→20:13)
[2022-05-13] MEDS: CALCIUM ACETATE 667MG GELCAP PO SCH ×3 (07:28→19:11)
[2022-05-13] MEDS: ADVAIR HFA 230/21MCG INHALER INH SCH ×2 (07:40→20:07)
[2022-05-13] MEDS: PANTOPRAZOLE 40MG TAB (PROTONIX) PO SCH (08:38)
[2022-05-13] MEDS: APIXABAN 2.5 MG TAB (ELIQUIS) PO SCH ×2 (08:38→20:12)
[2022-05-13] MEDS: GABAPENTIN 100 MG CAP PO SCH ×2 (08:39→20:13)
[2022-05-13] MEDS: MULTIVITAMINS/MINERALS THERAP 1 TAB PO SCH (08:39)
[2022-05-13] MEDS: CLOPIDOGREL 75 MG TAB PO SCH (08:39)
[2022-05-13] MEDS: LEVEMIR (INSULIN DETEMIR) 1 UNITS/0.01ML SC SCH ×2 (08:40→20:11)
[2022-05-13] MEDS: CARVedilol 6.25 MG TAB PO SCH ×2 (08:48→20:12)
[2022-05-13] MEDS: SENOKOT S TAB PO SCH ×2 (08:48→20:11)
[2022-05-13] MEDS ORDERED: LACTIC ACID 12% LOTION 225 GM BTL TOP SCH ×2 (09:00)
[2022-05-13 09:26] LABS: ALBUMIN 1.3 GM/DL (3.2-5.2); BILIRUBIN,TOTAL 0.5 MG/DL (0.2-1.0); CALCIUM LEVEL 6.9 MG/DL (8.5-10.1); CREATININE FOR GFR 3.57 MG/DL (0.70-1.30); GLOMERULAR FILTRATION RATE 19.1 (>56); MAGNESIUM LEVEL 1.9 MG/DL (1.8-2.4); PHOSPHORUS LEVEL 4.3 MG/DL (2.5-4.9); TOTAL PROTEIN 5.8 GM/DL (6.4-8.2)
[2022-05-13] MEDS ORDERED: LEVALBUTEROL 1.25 MG/0.5 ML CONCENTRATE NEB NEB PRN (09:30)
[2022-05-13] MEDS ORDERED: SODIUM CHLORIDE 0.9% 1000ML IV PRN (09:45)
[2022-05-13 09:57] LABS: HEMOGLOBIN 8.3 g/dl (13.5-17.5); MEAN CORPUSCULAR HEMOGLOBIN 29.4 pg (27.0-33.0); MEAN CORPUSCULAR HGB CONC 28.6 g/dl (32.0-36.5); MEAN CORPUSCULAR VOLUME 102.8 fl (80.0-96.0); PLATELET COUNT, AUTOMATED 250 10^3/uL (150-450); RED BLOOD COUNT 2.82 10^6/uL (4.30-6.10); WHITE BLOOD COUNT 10.2 10^3/uL (4.0-10.0)
[2022-05-13 10:20] LABS: ATYPICAL LYMPH 1 % (0-5); LYMPHOCYTES 16 % (16-44); METAMYELOCYTES 4 % (0-0); MONOCYTES 13 % (0-5); MYELOCYTES 6 % (0-0); NEUTROPHILS 56 % (28-66)
[2022-05-13 10:22] LABS: PLATELET ESTIMATE NORMAL (NORMAL)
[2022-05-13 10:23] LABS: GIANT PLATELETS 1+; TEAR DROP CELLS 1+
[2022-05-13 10:24] LABS: MICROCYTOSIS 1+; OVALOCYTES 1+; POLYCHROMASIA 1+
[2022-05-13] MEDS: DIGOXIN 0.125 MG TAB PO SCH (10:26)
[2022-05-13 10:38] LABS: INR 1.44
[2022-05-13 10:39] LABS: PARTIAL THROMBOPLASTIN TIME 49.8 SECONDS (25.9-37.0)
[2022-05-13 11:01] LABS: THYROID STIMULATING HORMONE 5.91 uIU/ML (0.358-3.740); THYROXINE (T4) 5.5 UG/DL (4.5-12.0)
[2022-05-13 11:08] LABS: ALBUMIN 1.9 GM/DL (3.2-5.2); BILIRUBIN,TOTAL 0.7 MG/DL (0.2-1.0); CALCIUM LEVEL 8.5 MG/DL (8.5-10.1); CREATININE FOR GFR 4.33 MG/DL (0.70-1.30); GLOMERULAR FILTRATION RATE 15.3 (>56); MAGNESIUM LEVEL 2.2 MG/DL (1.8-2.4); PHOSPHORUS LEVEL 4.2 MG/DL (2.5-4.9); POTASSIUM SERUM 3.7 MEQ/L (3.5-5.1); TOTAL PROTEIN 6.1 GM/DL (6.4-8.2)
[2022-05-13 11:20] LABS: ABG BASE EXCESS 4.1 (-2.0-2.0); ABG HCO3 31.8 MEQ/L (22.0-26.0); ABG O2 SATURATION 91.4 % (95.0-99.0); ABG PARTIAL PRESSURE O2 68.8 mmHg (75.0-100.0); ABG STANDARD HCO3 28.1 MEQ/L (22.0-26.0); ABG TOTAL CO2 33.9 MEQ/L (22.0-29.0); ABG pH (ARTERIAL) 7.296 UNITS (7.350-7.450)
[2022-05-13 11:23] LABS: ABG PARTIAL PRESSURE CO2 66.8 mmHg (35.0-45.0)
[2022-05-13] MEDS: LEVALBUTEROL 1.25 MG/0.5 ML CONCENTRATE NEB NEB SCH ×3 (11:27→20:00)
[2022-05-13 16:34] LABS: ABG BASE EXCESS 2.1 (-2.0-2.0); ABG HCO3 29.1 MEQ/L (22.0-26.0); ABG O2 SATURATION 96.1 % (95.0-99.0); ABG PARTIAL PRESSURE CO2 58.6 mmHg (35.0-45.0); ABG PARTIAL PRESSURE O2 87.5 mmHg (75.0-100.0); ABG STANDARD HCO3 26.3 MEQ/L (22.0-26.0); ABG TOTAL CO2 30.9 MEQ/L (22.0-29.0); ABG pH (ARTERIAL) 7.314 UNITS (7.350-7.450)
[2022-05-14] VITALS: BP 161/69
[2022-05-14] MEDS: PIPERACILLIN/TAZOBACTAM SOD 3.375 GM in D5W MINI-BAG PLUS 50 ML IV SCH ×2 (01:56→07:48)
[2022-05-14] MEDS: LEVALBUTEROL 1.25 MG/0.5 ML CONCENTRATE NEB NEB SCH ×5 (02:00→20:00)
[2022-05-14 04:00] VITALS: BP 158/64
[2022-05-14] MEDS ORDERED: SODIUM CHLORIDE 0.9% 1000ML IV PRN (04:45)
[2022-05-14 07:20] LABS: HEMATOCRIT 31.2 % (42.0-52.0); HEMOGLOBIN 8.8 g/dl (13.5-17.5); MEAN CORPUSCULAR HEMOGLOBIN 28.5 pg (27.0-33.0); MEAN CORPUSCULAR HGB CONC 28.2 g/dl (32.0-36.5); PLATELET COUNT, AUTOMATED 269 10^3/uL (150-450); RED BLOOD COUNT 3.09 10^6/uL (4.30-6.10)
[2022-05-14 07:35] LABS: CREATININE FOR GFR 3.18 MG/DL (0.70-1.30); GLOMERULAR FILTRATION RATE 21.8 (>56)
[2022-05-14] MEDS: MULTIVITAMINS/MINERALS THERAP 1 TAB PO SCH (07:48)
[2022-05-14] MEDS: PANTOPRAZOLE 40MG TAB (PROTONIX) PO SCH (07:48)
[2022-05-14] MEDS: SENOKOT S TAB PO SCH ×2 (07:48→21:04)
[2022-05-14] MEDS: GABAPENTIN 100 MG CAP PO SCH ×2 (07:49→21:04)
[2022-05-14] MEDS: CARVedilol 6.25 MG TAB PO SCH ×2 (07:49→21:03)
[2022-05-14] MEDS: APIXABAN 2.5 MG TAB (ELIQUIS) PO SCH ×2 (07:49→21:03)
[2022-05-14] MEDS: CLOPIDOGREL 75 MG TAB PO SCH (07:49)
[2022-05-14] MEDS: CALCIUM ACETATE 667MG GELCAP PO SCH ×3 (07:49→17:27)
[2022-05-14] MEDS: LACTOBACILLUS ACIDOPHILUS CAP (BACID) PO SCH ×4 (07:50→21:02)
[2022-05-14] MEDS: SUCROFERRIC OXYHYDROXIDE 500MG CHEW TAB (VELPHORO) PO SCH ×3 (07:50→17:27)
[2022-05-14] MEDS: DIGOXIN 0.125 MG TAB PO SCH (07:50)
[2022-05-14] MEDS: INSULIN LISPRO (NovoLOG) PER UNIT SC SCH ×4 (07:50→21:00)
[2022-05-14 07:51] LABS: ATYPICAL LYMPH 1 % (0-5); EOSINOPHILS 1 % (0-3); LYMPHOCYTES 28 % (16-44); METAMYELOCYTES 3 % (0-0); MONOCYTES 14 % (0-5); NEUTROPHILS 52 % (28-66)
[2022-05-14] MEDS: LEVEMIR (INSULIN DETEMIR) 1 UNITS/0.01ML SC SCH ×2 (07:51→21:02)
[2022-05-14 07:55] LABS: ANISOCYTOSIS 2+; PLATELET ESTIMATE NORMAL (NORMAL)
[2022-05-14 07:56] LABS: POLYCHROMASIA 1+
[2022-05-14 07:57] LABS: HYPOCHROMASIA 1+
[2022-05-14 08:01] VITALS: BP 161/72
[2022-05-14] MEDS: ADVAIR HFA 230/21MCG INHALER INH SCH ×2 (08:43→20:22)
[2022-05-14 08:44] VITALS: O2SAT 97
[2022-05-14] MEDS ORDERED: DARBEPOETIN 100 MCG/0.5 ML *DIALYSIS* SYRINGE (J0882) IV SCH (09:00)
[2022-05-14 13:06] LABS: PERCENT SATURATION 29.6 % (19.7-50.0)
[2022-05-14 17:05] VITALS: BP 139/56
[2022-05-14 17:11] LABS: SOURCE, BODY FLUID pH PLEURAL
[2022-05-14 17:26] LABS: SOURCE, BODY FLUID PLEURAL
[2022-05-14] MEDS: PIPERACILLIN/TAZOBACTAM SOD 4.5 GM in D5W MINI-BAG PLUS 50 ML IV SCH (17:26)
[2022-05-14 17:27] LABS: APPEARANCE, BODY FLUID CLEAR (CLEAR); PLEURAL FL COLOR YELLOW (COLORLESS)
[2022-05-14 18:03] LABS: AMYLASE, BODY FLUID 10 U/L (NOT ESTABLISHED); CHOLESTEROL, BODY FLUID < 50 MG/DL (NOT ESTABLISHED); LDH, BODY FLUID 86 U/L (NOT ESTABLISHED); SOURCE, BODY FLUID ALBUMIN PLEURAL; SOURCE, BODY FLUID AMYLASE PLEURAL; SOURCE, BODY FLUID CHOL PLEURAL; SOURCE, BODY FLUID GLUCOSE PLEURAL; SOURCE, BODY FLUID LDH PLEURAL; SOURCE, BODY FLUID TOT PROTEIN PLEURAL; SOURCE, BODY FLUID TRIG PLEURAL; TOTAL PROTEIN, BODY FLUID 1.9 G/DL (NOT ESTABLISHED); TRIGLYCERIDE, BODY FLUID 28 MG/DL (NOT ESTABLISHED)
[2022-05-14 20:00] VITALS: BP 155/67
[2022-05-15] VITALS: BP 151/62
[2022-05-15] MEDS: LEVALBUTEROL 1.25 MG/0.5 ML CONCENTRATE NEB NEB SCH ×4 (01:56→20:00)
[2022-05-15] MEDS: PIPERACILLIN/TAZOBACTAM SOD 4.5 GM in D5W MINI-BAG PLUS 50 ML IV SCH ×2 (03:39→15:19)
[2022-05-15 04:00] VITALS: BP 146/64
[2022-05-15 04:12] LABS: BASO % 0.3 % (0.0-1.0); EOS % 0.2 % (0.0-3.0); HEMOGLOBIN 9.1 g/dl (13.5-17.5); LYMPH % 17.6 % (24.0-44.0); MEAN CORPUSCULAR HGB CONC 28.4 g/dl (32.0-36.5); MEAN CORPUSCULAR VOLUME 101.9 fl (80.0-96.0); MONO # 1.5 10^3/uL (0.0-0.8); MONO % 13.3 % (2.0-8.0); NEUTROPHILS # 7.3 10^3/uL (1.5-8.5); NEUTROPHILS % 64.2 % (36.0-66.0); PLATELET COUNT, AUTOMATED 243 10^3/uL (150-450); RED BLOOD COUNT 3.14 10^6/uL (4.30-6.10); WHITE BLOOD COUNT 11.3 10^3/uL (4.0-10.0)
[2022-05-15 04:51] LABS: CALCIUM LEVEL 8.8 MG/DL (8.5-10.1); CREATININE FOR GFR 2.61 MG/DL (0.70-1.30); FREE T3 1.8 PG/ML (2.2-4.0); GLOMERULAR FILTRATION RATE 27.4 (>56); POTASSIUM SERUM 4.2 MEQ/L (3.5-5.1); THYROID STIMULATING HORMONE 4.97 uIU/ML (0.358-3.740); THYROXINE (T4) 5.8 UG/DL (4.5-12.0)
[2022-05-15] MEDS: ADVAIR HFA 230/21MCG INHALER INH SCH ×2 (07:15→20:11)
[2022-05-15 08:00] VITALS: BP 151/65
[2022-05-15] MEDS: PANTOPRAZOLE 40MG TAB (PROTONIX) PO SCH (08:10)
[2022-05-15] MEDS: GABAPENTIN 100 MG CAP PO SCH ×2 (08:11→20:25)
[2022-05-15] MEDS: LACTOBACILLUS ACIDOPHILUS CAP (BACID) PO SCH ×4 (08:11→20:27)
[2022-05-15] MEDS: CLOPIDOGREL 75 MG TAB PO SCH (08:11)
[2022-05-15] MEDS: CALCIUM ACETATE 667MG GELCAP PO SCH ×3 (08:11→20:25)
[2022-05-15] MEDS: APIXABAN 2.5 MG TAB (ELIQUIS) PO SCH ×2 (08:11→20:26)
[2022-05-15] MEDS: DIGOXIN 0.125 MG TAB PO SCH (08:11)
[2022-05-15] MEDS: SENOKOT S TAB PO SCH ×2 (08:11→20:25)
[2022-05-15] MEDS: LEVOTHYROXINE 25MCG TABLET (0.025MG) PO SCH (08:11)
[2022-05-15] MEDS: MULTIVITAMINS/MINERALS THERAP 1 TAB PO SCH (08:12)
[2022-05-15] MEDS: LEVEMIR (INSULIN DETEMIR) 1 UNITS/0.01ML SC SCH ×2 (08:12→20:26)
[2022-05-15] MEDS: CARVedilol 6.25 MG TAB PO SCH ×2 (08:12→20:26)
[2022-05-15] MEDS: SUCROFERRIC OXYHYDROXIDE 500MG CHEW TAB (VELPHORO) PO SCH ×3 (08:12→20:25)
[2022-05-15] MEDS: INSULIN LISPRO (NovoLOG) PER UNIT SC SCH ×4 (08:13→20:06)
[2022-05-15] MEDS ORDERED: SODIUM CHLORIDE 0.9% 1000ML IV PRN (10:15)
[2022-05-15 12:00] VITALS: BP 163/65
[2022-05-15 16:00] VITALS: BP 157/63
[2022-05-15 20:22] VITALS: BP 158/69
[2022-05-15] MEDS: amLODIPine 5 MG TAB PO SCH (20:24)
[2022-05-16] VITALS: BP 121/53
[2022-05-16] MEDS: LEVALBUTEROL 1.25 MG/0.5 ML CONCENTRATE NEB NEB SCH ×4 (01:16→19:49)
[2022-05-16 04:00] VITALS: BP 139/58
[2022-05-16] MEDS: PIPERACILLIN/TAZOBACTAM SOD 4.5 GM in D5W MINI-BAG PLUS 50 ML IV SCH ×2 (04:09→17:51)
[2022-05-16 05:22] LABS: BASO # 0.1 10^3/uL (0.0-0.2); BASO % 0.5 % (0.0-1.0); EOS % 0.3 % (0.0-3.0); HEMATOCRIT 31.8 % (42.0-52.0); LYMPH # 2.3 10^3/uL (1.5-5.0); LYMPH % 20.6 % (24.0-44.0); MEAN CORPUSCULAR HEMOGLOBIN 28.8 pg (27.0-33.0); MEAN CORPUSCULAR HGB CONC 28.3 g/dl (32.0-36.5); MEAN CORPUSCULAR VOLUME 101.6 fl (80.0-96.0); MONO # 1.3 10^3/uL (0.0-0.8); MONO % 11.6 % (2.0-8.0); NEUTROPHILS # 6.9 10^3/uL (1.5-8.5); NEUTROPHILS % 63.2 % (36.0-66.0); PLATELET COUNT, AUTOMATED 189 10^3/uL (150-450); RED BLOOD COUNT 3.13 10^6/uL (4.30-6.10)
[2022-05-16] MEDS: LEVOTHYROXINE 25MCG TABLET (0.025MG) PO SCH (05:57)
[2022-05-16 06:00] LABS: CREATININE FOR GFR 2.25 MG/DL (0.70-1.30); GLOMERULAR FILTRATION RATE 32.5 (>56); POTASSIUM SERUM 3.8 MEQ/L (3.5-5.1)
[2022-05-16 07:51] VITALS: BP 160/63
[2022-05-16] MEDS ORDERED: MORPHINE 2 MG/ML 1ML VIAL IV ONE (08:30)
[2022-05-16] MEDS: ADVAIR HFA 230/21MCG INHALER INH SCH ×2 (08:42→19:49)
[2022-05-16] MEDS ORDERED: SODIUM CHLORIDE 0.9% 1000ML IV PRN (09:55)
[2022-05-16] MEDS: PANTOPRAZOLE 40MG TAB (PROTONIX) PO SCH (09:58)
[2022-05-16] MEDS: amLODIPine 5 MG TAB PO SCH ×2 (09:59→20:38)
[2022-05-16] MEDS: GABAPENTIN 100 MG CAP PO SCH ×2 (09:59→21:10)
[2022-05-16] MEDS: CARVedilol 6.25 MG TAB PO SCH ×2 (09:59→21:00)
[2022-05-16] MEDS: APIXABAN 2.5 MG TAB (ELIQUIS) PO SCH ×2 (09:59→21:10)
[2022-05-16] MEDS: CLOPIDOGREL 75 MG TAB PO SCH (09:59)
[2022-05-16] MEDS: MULTIVITAMINS/MINERALS THERAP 1 TAB PO SCH (09:59)
[2022-05-16] MEDS: LACTOBACILLUS ACIDOPHILUS CAP (BACID) PO SCH ×4 (10:00→21:09)
[2022-05-16] MEDS: DIGOXIN 0.125 MG TAB PO SCH (10:00)
[2022-05-16] MEDS: SUCROFERRIC OXYHYDROXIDE 500MG CHEW TAB (VELPHORO) PO SCH ×3 (10:00→17:51)
[2022-05-16] MEDS: CALCIUM ACETATE 667MG GELCAP PO SCH ×3 (10:00→17:50)
[2022-05-16] MEDS: SENOKOT S TAB PO SCH ×2 (10:00→21:10)
[2022-05-16] MEDS: INSULIN LISPRO (NovoLOG) PER UNIT SC SCH ×4 (10:01→21:00)
[2022-05-16] MEDS: LEVEMIR (INSULIN DETEMIR) 1 UNITS/0.01ML SC SCH ×2 (10:02→21:08)
[2022-05-16 12:20] VITALS: BP 166/68
[2022-05-16] MEDS ORDERED: ALTEPLASE 2MG/2ML VIAL INTRAPLEU ONE (13:00)
[2022-05-16] MEDS ORDERED: HYDROMORPHONE HCL 0.5 MG/ 0.5 ML SYRINGE (J1170 PER 1) IV ONE (17:00)
[2022-05-16] MEDS: traMADol 50 MG TAB PO PRN (17:13)
[2022-05-16 17:45] VITALS: BP 164/69
[2022-05-16 20:04] VITALS: BP 116/59
[2022-05-17] VITALS (7 sets, daily range): BP systolic 92–175; BP diastolic 44–90
[2022-05-17] MEDS ORDERED: MIDODRINE 5 MG TAB PO ONE ×2 (01:00→05:00)
[2022-05-17] MEDS: LEVALBUTEROL 1.25 MG/0.5 ML CONCENTRATE NEB NEB SCH ×4 (02:00→19:23)
[2022-05-17] MEDS: PIPERACILLIN/TAZOBACTAM SOD 4.5 GM in D5W MINI-BAG PLUS 50 ML IV SCH (05:03)
[2022-05-17] MEDS ORDERED: PILL CUTTER 1 EACH XX ONE (05:20)
[2022-05-17 05:25] LABS: BASO # 0.1 10^3/uL (0.0-0.2); BASO % 0.6 % (0.0-1.0); EOS % 0.3 % (0.0-3.0); HEMATOCRIT 33.6 % (42.0-52.0); HEMOGLOBIN 9.6 g/dl (13.5-17.5); LYMPH # 2.2 10^3/uL (1.5-5.0); LYMPH % 20.4 % (24.0-44.0); MEAN CORPUSCULAR HEMOGLOBIN 29.1 pg (27.0-33.0); MEAN CORPUSCULAR HGB CONC 28.6 g/dl (32.0-36.5); MEAN CORPUSCULAR VOLUME 101.8 fl (80.0-96.0); MONO # 1.3 10^3/uL (0.0-0.8); MONO % 12.4 % (2.0-8.0); NEUTROPHILS # 6.7 10^3/uL (1.5-8.5); PLATELET COUNT, AUTOMATED 184 10^3/uL (150-450); WHITE BLOOD COUNT 10.6 10^3/uL (4.0-10.0)
[2022-05-17] MEDS: traMADol 50 MG TAB PO PRN (05:25)
[2022-05-17] MEDS: LEVOTHYROXINE 25MCG TABLET (0.025MG) PO SCH (05:25)
[2022-05-17 05:45] LABS: CALCIUM LEVEL 9.3 MG/DL (8.5-10.1); CREATININE FOR GFR 2.09 MG/DL (0.70-1.30); GLOMERULAR FILTRATION RATE 35.4 (>56); POTASSIUM SERUM 4.1 MEQ/L (3.5-5.1)
[2022-05-17] MEDS: ADVAIR HFA 230/21MCG INHALER INH SCH ×2 (07:29→19:23)
[2022-05-17] MEDS: LEVEMIR (INSULIN DETEMIR) 1 UNITS/0.01ML SC SCH ×2 (09:57→20:38)
[2022-05-17] MEDS: SENOKOT S TAB PO SCH ×2 (09:58→20:37)
[2022-05-17] MEDS: INSULIN LISPRO (NovoLOG) PER UNIT SC SCH ×4 (09:58→20:38)
[2022-05-17] MEDS: PANTOPRAZOLE 40MG TAB (PROTONIX) PO SCH (09:58)
[2022-05-17] MEDS: SUCROFERRIC OXYHYDROXIDE 500MG CHEW TAB (VELPHORO) PO SCH ×3 (09:58→17:42)
[2022-05-17] MEDS: MULTIVITAMINS/MINERALS THERAP 1 TAB PO SCH (09:59)
[2022-05-17] MEDS: DIGOXIN 0.125 MG TAB PO SCH (09:59)
[2022-05-17] MEDS: MIDODRINE 5 MG TAB PO SCH ×3 (09:59→17:42)
[2022-05-17] MEDS: LACTOBACILLUS ACIDOPHILUS CAP (BACID) PO SCH ×4 (09:59→20:37)
[2022-05-17] MEDS: GABAPENTIN 100 MG CAP PO SCH ×2 (09:59→20:38)
[2022-05-17] MEDS: APIXABAN 2.5 MG TAB (ELIQUIS) PO SCH ×2 (10:00→20:37)
[2022-05-17] MEDS: CLOPIDOGREL 75 MG TAB PO SCH (10:00)
[2022-05-17] MEDS: CALCIUM ACETATE 667MG GELCAP PO SCH ×3 (10:00→17:42)
[2022-05-17] MEDS ORDERED: SIMETHICONE 80MG CHEW TAB PO ONE (10:45)
[2022-05-17] MEDS ORDERED: PILL CUTTER 1 EACH XX PRN (10:50)
[2022-05-17] MEDS ORDERED: SIMETHICONE 80MG CHEW TAB PO PRN (13:00)
[2022-05-17] MEDS ORDERED: traZODone 50 MG TAB PO PRN (15:20)
[2022-05-17] MEDS: MOXIFLOXACIN 400 MG TAB PO SCH (17:42)
[2022-05-18] VITALS: BP 102/46
[2022-05-18] MEDS ORDERED: SODIUM CHLORIDE 0.9% 1000ML IV PRN (00:30)
[2022-05-18] MEDS: LEVALBUTEROL 1.25 MG/0.5 ML CONCENTRATE NEB NEB SCH ×4 (02:00→20:00)
[2022-05-18 04:00] VITALS: BP 106/46
[2022-05-18] MEDS: LEVOTHYROXINE 25MCG TABLET (0.025MG) PO SCH (05:16)
[2022-05-18] MEDS: MOXIFLOXACIN 400 MG TAB PO SCH (05:16)
[2022-05-18] MEDS: ADVAIR HFA 230/21MCG INHALER INH SCH ×2 (07:39→20:11)
[2022-05-18] MEDS ORDERED: traZODone 50 MG TAB PO PRN (07:40)
[2022-05-18 07:58] VITALS: BP 154/70
[2022-05-18] MEDS: MIDODRINE 5 MG TAB PO SCH (08:00)
[2022-05-18] MEDS: LACTOBACILLUS ACIDOPHILUS CAP (BACID) PO SCH ×4 (08:05→20:35)
[2022-05-18] MEDS: SUCROFERRIC OXYHYDROXIDE 500MG CHEW TAB (VELPHORO) PO SCH ×3 (08:05→18:36)
[2022-05-18] MEDS: CALCIUM ACETATE 667MG GELCAP PO SCH ×3 (08:05→18:36)
[2022-05-18] MEDS: INSULIN LISPRO (NovoLOG) PER UNIT SC SCH ×4 (08:06→20:27)
[2022-05-18 08:08] LABS: BASO # 0.1 10^3/uL (0.0-0.2); BASO % 0.5 % (0.0-1.0); EOS # 0.1 10^3/uL (0.0-0.5); EOS % 0.4 % (0.0-3.0); HEMATOCRIT 33.7 % (42.0-52.0); HEMOGLOBIN 9.8 g/dl (13.5-17.5); LYMPH # 2.7 10^3/uL (1.5-5.0); LYMPH % 18.8 % (24.0-44.0); MEAN CORPUSCULAR HEMOGLOBIN 29.3 pg (27.0-33.0); MEAN CORPUSCULAR HGB CONC 29.1 g/dl (32.0-36.5); MEAN CORPUSCULAR VOLUME 100.9 fl (80.0-96.0); MONO # 1.5 10^3/uL (0.0-0.8); MONO % 10.7 % (2.0-8.0); NEUTROPHILS # 9.7 10^3/uL (1.5-8.5); PLATELET COUNT, AUTOMATED 214 10^3/uL (150-450); RED BLOOD COUNT 3.34 10^6/uL (4.30-6.10); WHITE BLOOD COUNT 14.4 10^3/uL (4.0-10.0)
[2022-05-18 08:37] LABS: CALCIUM LEVEL 9.4 MG/DL (8.5-10.1); CREATININE FOR GFR 3.41 MG/DL (0.70-1.30); GLOMERULAR FILTRATION RATE 20.1 (>56); POTASSIUM SERUM 4.4 MEQ/L (3.5-5.1)
[2022-05-18 13:18] VITALS: BP 146/70
[2022-05-18] MEDS: LEVEMIR (INSULIN DETEMIR) 1 UNITS/0.01ML SC SCH ×2 (13:25→20:35)
[2022-05-18] MEDS: CLOPIDOGREL 75 MG TAB PO SCH (13:26)
[2022-05-18] MEDS: MULTIVITAMINS/MINERALS THERAP 1 TAB PO SCH (13:26)
[2022-05-18] MEDS: PANTOPRAZOLE 40MG TAB (PROTONIX) PO SCH (13:26)
[2022-05-18] MEDS: APIXABAN 2.5 MG TAB (ELIQUIS) PO SCH ×2 (13:26→20:35)
[2022-05-18] MEDS: SENOKOT S TAB PO SCH ×2 (13:26→20:35)
[2022-05-18] MEDS: GABAPENTIN 100 MG CAP PO SCH ×2 (13:26→20:35)
[2022-05-18] MEDS: DIGOXIN 0.125 MG TAB PO SCH (13:27)
[2022-05-18] MEDS ORDERED: GI COCKTAIL 50ML BTL(HYOSCYAMINE/MAALOX/LIDOCAINE VISCOUS)(1:3:1) PO PRN (15:30)
[2022-05-18 16:15] VITALS: BP 165/68
[2022-05-18] MEDS ORDERED: GI COCKTAIL 50ML BTL(HYOSCYAMINE/MAALOX/LIDOCAINE VISCOUS)(1:3:1) PO ONE (17:00)
[2022-05-18 20:00] VITALS: BP 157/66
[2022-05-19] VITALS: BP 164/97
[2022-05-19] MEDS: LEVALBUTEROL 1.25 MG/0.5 ML CONCENTRATE NEB NEB SCH ×3 (01:00→11:23)
[2022-05-19 04:00] VITALS: BP 187/72
[2022-05-19] MEDS: MOXIFLOXACIN 400 MG TAB PO SCH (05:21)
[2022-05-19] MEDS: LEVOTHYROXINE 25MCG TABLET (0.025MG) PO SCH (05:21)
[2022-05-19 07:36] LABS: BASO # 0.1 10^3/uL (0.0-0.2); BASO % 0.4 % (0.0-1.0); EOS % 0.3 % (0.0-3.0); HEMATOCRIT 31.5 % (42.0-52.0); HEMOGLOBIN 9.4 g/dl (13.5-17.5); LYMPH # 2.3 10^3/uL (1.5-5.0); LYMPH % 19.8 % (24.0-44.0); MEAN CORPUSCULAR HEMOGLOBIN 29.8 pg (27.0-33.0); MEAN CORPUSCULAR HGB CONC 29.8 g/dl (32.0-36.5); MONO # 1.5 10^3/uL (0.0-0.8); MONO % 12.8 % (2.0-8.0); NEUTROPHILS # 7.6 10^3/uL (1.5-8.5); NEUTROPHILS % 64.1 % (36.0-66.0); PLATELET COUNT, AUTOMATED 173 10^3/uL (150-450); RED BLOOD COUNT 3.15 10^6/uL (4.30-6.10); WHITE BLOOD COUNT 11.8 10^3/uL (4.0-10.0)
[2022-05-19 07:47] VITALS: BP 169/74
[2022-05-19 07:55] LABS: CALCIUM LEVEL 8.8 MG/DL (8.5-10.1); CREATININE FOR GFR 2.77 MG/DL (0.70-1.30); GLOMERULAR FILTRATION RATE 25.6 (>56); POTASSIUM SERUM 3.8 MEQ/L (3.5-5.1)
[2022-05-19] MEDS: ADVAIR HFA 230/21MCG INHALER INH SCH (07:57)
[2022-05-19] MEDS: SUCROFERRIC OXYHYDROXIDE 500MG CHEW TAB (VELPHORO) PO SCH ×2 (08:06→11:41)
[2022-05-19] MEDS: MULTIVITAMINS/MINERALS THERAP 1 TAB PO SCH (08:07)
[2022-05-19] MEDS: CLOPIDOGREL 75 MG TAB PO SCH (08:07)
[2022-05-19] MEDS: GABAPENTIN 100 MG CAP PO SCH (08:07)
[2022-05-19] MEDS: LEVEMIR (INSULIN DETEMIR) 1 UNITS/0.01ML SC SCH (08:07)
[2022-05-19] MEDS: LACTOBACILLUS ACIDOPHILUS CAP (BACID) PO SCH ×2 (08:07→11:42)
[2022-05-19] MEDS: INSULIN LISPRO (NovoLOG) PER UNIT SC SCH ×2 (08:07→11:42)
[2022-05-19] MEDS: DIGOXIN 0.125 MG TAB PO SCH (08:08)
[2022-05-19] MEDS: CALCIUM ACETATE 667MG GELCAP PO SCH ×2 (08:08→11:42)
[2022-05-19] MEDS: APIXABAN 2.5 MG TAB (ELIQUIS) PO SCH (08:08)
[2022-05-19] MEDS: SENOKOT S TAB PO SCH (08:08)
[2022-05-19] MEDS: PANTOPRAZOLE 40MG TAB (PROTONIX) PO SCH (08:08)
[2022-05-19] MEDS ORDERED: CARVedilol 6.25 MG TAB PO ONE (10:45)
[2022-05-19] MEDS ORDERED: LEVO25TA5 PO (11:25)
[2022-05-19] MEDS ORDERED: SIME80TA16 PO (11:25)
[2022-05-19 11:43] VITALS: BP 187/77
[2022-05-19 12:29] VITALS: BP 165/72
[2022-05-19 13:52] VITALS: BP 168/71
[2022-05-19] MEDS ORDERED: CARVedilol 6.25 MG TAB PO SCH (21:00)
== END 2022-05-19 13:59 | DRG 291 ==
LOC: M ED 11:14 → ENRESERV 17:31 → M ED INP 17:41 → M ICU 17:53 → M PCU 05-13 16:46
PROVIDERS: ADMIT Internal Medicine; ATTEND General Practice
PROC: 5A1D70Z Performance of Urinary Filtration, Intermittent, Less than 6 Hours Per Day (ICD-10-PCS; principal; 2022-05-13)
PROC: 0W9B30Z Drainage of Left Pleural Cavity with Drainage Device, Percutaneous Approach (ICD-10-PCS; 2022-05-14)
PROC: 3E0L3GC Introduction of Other Therapeutic Substance into Pleural Cavity, Percutaneous Approach (ICD-10-PCS; 2022-05-16)
DX: I13.2 Hypertensive heart and chronic kidney disease with heart failure and with stage 5 chronic kidney disease, or end stage renal disease (principal); N18.6 End stage renal disease; J18.9 Pneumonia, unspecified organism; I50.33 Acute on chronic diastolic (congestive) heart failure; J90 Pleural effusion, not elsewhere classified; J96.11 Chronic respiratory failure with hypoxia; I31.3 Pericardial effusion (noninflammatory); N25.81 Secondary hyperparathyroidism of renal origin; E11.22 Type 2 diabetes mellitus with diabetic chronic kidney disease; I48.91 Unspecified atrial fibrillation; E11.51 Type 2 diabetes mellitus with diabetic peripheral angiopathy without gangrene; G89.29 Other chronic pain; D63.8 Anemia in other chronic diseases classified elsewhere; J45.909 Unspecified asthma, uncomplicated; I87.2 Venous insufficiency (chronic) (peripheral); I27.20 Pulmonary hypertension, unspecified; E03.9 Hypothyroidism, unspecified; R53.1 Weakness; Z99.2 Dependence on renal dialysis; Z88.6 Allergy status to analgesic agent; Z89.611 Acquired absence of right leg above knee; Z86.74 Personal history of sudden cardiac arrest; Z99.81 Dependence on supplemental oxygen; Z89.412 Acquired absence of left great toe; Z91.018 Allergy to other foods; Z91.048 Other nonmedicinal substance allergy status; Z79.01 Long term (current) use of anticoagulants; Z79.02 Long term (current) use of antithrombotics/antiplatelets; Z79.4 Long term (current) use of insulin; Z79.899 Other long term (current) drug therapy

== ENCOUNTER → 2022-05-30 | Outpatient (REF) | payer MEDICARE, MEDICAID ==
[~2022-05-30] MED LIST changes: +LEVO25TA5 PO; +MILKSUS3 PO; +NEPR1LIQ2 PO; +SENN-111 PO; +SIME80TA16 PO; +VITMTA PO
[2022-05-30 11:28] LABS: BASO % 0.4 % (0.0-1.0); EOS # 0.1 10^3/uL (0.0-0.5); EOS % 0.6 % (0.0-3.0); HEMATOCRIT 33.2 % (42.0-52.0); HEMOGLOBIN 9.8 g/dl (13.5-17.5); LYMPH # 1.5 10^3/uL (1.5-5.0); LYMPH % 13.7 % (24.0-44.0); MEAN CORPUSCULAR HEMOGLOBIN 29.4 pg (27.0-33.0); MEAN CORPUSCULAR HGB CONC 29.5 g/dl (32.0-36.5); MEAN CORPUSCULAR VOLUME 99.7 fl (80.0-96.0); MONO # 0.8 10^3/uL (0.0-0.8); MONO % 7.4 % (2.0-8.0); NEUTROPHILS # 7.9 10^3/uL (1.5-8.5); NEUTROPHILS % 73.7 % (36.0-66.0); PLATELET COUNT, AUTOMATED 148 10^3/uL (150-450); RED BLOOD COUNT 3.33 10^6/uL (4.30-6.10); WHITE BLOOD COUNT 10.8 10^3/uL (4.0-10.0)
[2022-05-30 12:09] LABS: ALBUMIN 2.4 GM/DL (3.2-5.2); BILIRUBIN,TOTAL 0.6 MG/DL (0.2-1.0); CALCIUM LEVEL 9.2 MG/DL (8.5-10.1); CREATININE FOR GFR 4.29 MG/DL (0.70-1.30); GLOMERULAR FILTRATION RATE 15.4 (>56); MAGNESIUM LEVEL 2.3 MG/DL (1.8-2.4); POTASSIUM SERUM 3.7 MEQ/L (3.5-5.1); TOTAL PROTEIN 6.7 GM/DL (6.4-8.2)
== END ==
LOC: SKLAB4 10:32
PROVIDERS: ATTEND Neuromusculoskeletal Medicine & OMM
DX: R91.8 Other nonspecific abnormal finding of lung field (principal); I10 Essential (primary) hypertension

== ENCOUNTER → 2022-05-31 | Outpatient (REF) | payer MEDICARE, MEDICAID ==
[2022-05-31 08:20] LABS: BASO % 0.3 % (0.0-1.0); EOS % 0.3 % (0.0-3.0); HEMOGLOBIN 9.9 g/dl (13.5-17.5); LYMPH # 1.2 10^3/uL (1.5-5.0); LYMPH % 13.3 % (24.0-44.0); MEAN CORPUSCULAR HEMOGLOBIN 29.3 pg (27.0-33.0); MEAN CORPUSCULAR HGB CONC 29.1 g/dl (32.0-36.5); MEAN CORPUSCULAR VOLUME 100.6 fl (80.0-96.0); MONO # 0.5 10^3/uL (0.0-0.8); MONO % 6.1 % (2.0-8.0); NEUTROPHILS # 6.7 10^3/uL (1.5-8.5); NEUTROPHILS % 76.4 % (36.0-66.0); PLATELET COUNT, AUTOMATED 114 10^3/uL (150-450); RED BLOOD COUNT 3.38 10^6/uL (4.30-6.10); WHITE BLOOD COUNT 8.8 10^3/uL (4.0-10.0)
[2022-05-31 09:06] LABS: ALBUMIN 2.3 GM/DL (3.2-5.2); BILIRUBIN,TOTAL 0.7 MG/DL (0.2-1.0); CALCIUM LEVEL 9.2 MG/DL (8.5-10.1); CREATININE FOR GFR 4.81 MG/DL (0.70-1.30); DIGOXIN LEVEL 2.6 NG/ML (0.5-2.0); GLOMERULAR FILTRATION RATE 13.5 (>56); POTASSIUM SERUM 4.3 MEQ/L (3.5-5.1); TOTAL PROTEIN 6.4 GM/DL (6.4-8.2)
== END ==
LOC: SKLAB4 09:17
PROVIDERS: ATTEND Nurse Practitioner Family
DX: N18.6 End stage renal disease (principal)

== ENCOUNTER → 2022-05-31 | Outpatient (REF) | payer MEDICARE, MEDICAID | LOC: SKLAB4 10:09 | PROVIDERS: ATTEND Nurse Practitioner Family | DX: I44.0 Atrioventricular block, first degree (principal); I45.10 Unspecified right bundle-branch block; N18.6 End stage renal disease ==

== ENCOUNTER 2022-06-01 17:37 | Inpatient (IN) | payer MEDICARE, MEDICAID ==
[~2022-06-01 17:37] MED LIST changes: -NEPR1LIQ2 PO; -SENN-111 PO
[2022-06-01 18:16] LABS: ABG BASE EXCESS 5.8 (-2.0-2.0); ABG HCO3 35.5 MEQ/L (22.0-26.0); ABG O2 SATURATION 98.4 % (95.0-99.0); ABG PARTIAL PRESSURE CO2 88.6 mmHg (35.0-45.0); ABG PARTIAL PRESSURE O2 148.2 mmHg (75.0-100.0); ABG STANDARD HCO3 29.7 MEQ/L (22.0-26.0); ABG TOTAL CO2 38.2 MEQ/L (22.0-29.0); ABG pH (ARTERIAL) 7.221 UNITS (7.350-7.450)
[2022-06-01] MEDS ORDERED: methylPREDNISolone 125MG 2ML VIAL IV ONE (18:25)
[2022-06-01] MEDS ORDERED: ALBUTEROL SULFATE 2.5 MG/0.5 ML INH NEB SOLN INH ONE (18:25)
[2022-06-01] MEDS ORDERED: IPRATROPIUM 0.5MG/ALBUTEROL 2.5MG INH SOL UD 3ML (DUONEB) NEB ONE (18:25)
[2022-06-01 19:06] LABS: RSV AMPLIFICATION NEGATIVE (NEGATIVE)
[2022-06-01] MEDS ORDERED: LEVO25TA5 PO (19:12)
[2022-06-01] MEDS ORDERED: NEPR1LIQ2 PO (19:12)
[2022-06-01] MEDS ORDERED: SENN-111 PO (19:12)
[2022-06-01] MEDS ORDERED: HOME MED LIST COMPLETE! XX SCH (19:20)
[2022-06-01 19:35] LABS: BASO % 0.3 % (0.0-1.0); EOS % 0.3 % (0.0-3.0); HEMATOCRIT 31.7 % (42.0-52.0); HEMOGLOBIN 9.3 g/dl (13.5-17.5); LYMPH # 1.2 10^3/uL (1.5-5.0); LYMPH % 9.8 % (24.0-44.0); MEAN CORPUSCULAR HGB CONC 29.3 g/dl (32.0-36.5); MEAN CORPUSCULAR VOLUME 98.8 fl (80.0-96.0); MONO # 0.8 10^3/uL (0.0-0.8); MONO % 6.3 % (2.0-8.0); NEUTROPHILS % 81.1 % (36.0-66.0); PLATELET COUNT, AUTOMATED 116 10^3/uL (150-450); RED BLOOD COUNT 3.21 10^6/uL (4.30-6.10); WHITE BLOOD COUNT 12.3 10^3/uL (4.0-10.0)
[2022-06-01 19:54] LABS: CK-MB VALUE MASS 2.9 NG/ML (<3.6); MB/CK RELATIVE INDEX 14.5 (< OR =4)
[2022-06-01 19:59] LABS: PROTHROMBIN TIME 13.6 SECONDS (12.7-14.5)
[2022-06-01 20:00] LABS: PARTIAL THROMBOPLASTIN TIME 45.5 SECONDS (25.9-37.0)
[2022-06-01 20:07] LABS: ALBUMIN 2.3 GM/DL (3.2-5.2); BILIRUBIN,DIRECT 0.3 MG/DL (0.0-0.2); BILIRUBIN,TOTAL 0.7 MG/DL (0.2-1.0); CREATININE FOR GFR 2.49 MG/DL (0.70-1.30); GLOMERULAR FILTRATION RATE 28.9 (>56); POTASSIUM SERUM 3.4 MEQ/L (3.5-5.1); THYROID STIMULATING HORMONE 4.79 uIU/ML (0.358-3.740); TOTAL PROTEIN 6.6 GM/DL (6.4-8.2)
[2022-06-01] MEDS ORDERED: hydrALAZINE 20MG/ML 1ML VIAL (J0360 PER 20MG) IV STA (21:01)
[2022-06-01 22:01] LABS: MB/CK RELATIVE INDEX 17.65 (< OR =4)
[2022-06-01] MEDS ORDERED: cloNIDine 0.2 MG TAB PO STA ×2 (23:03→23:45)
[2022-06-01] MEDS ORDERED: IPRATROPIUM 0.5MG/ALBUTEROL 2.5MG INH SOL UD 3ML (DUONEB) NEB PRN (23:05)
[2022-06-01] MEDS ORDERED: ALBUTEROL SULFATE 2.5 MG/0.5 ML INH NEB SOLN NEB PRN (23:05)
[2022-06-02] VITALS (17 sets, daily range): BP systolic 91–216; BP diastolic 42–86
[2022-06-02] MEDS ORDERED: NS 1,000 ML IV SCH (01:20)
[2022-06-02] MEDS ORDERED: GLUCOSE 4GM CHEW TABLET PO PRN (01:40)
[2022-06-02] MEDS ORDERED: GLUCAGON INJ 1MG VIAL SC PRN (01:40)
[2022-06-02] MEDS ORDERED: DEXTROSE 50% 50 ML SYRINGE IV PRN (01:40)
[2022-06-02] MEDS ORDERED: IPRATROPIUM 0.5MG/ALBUTEROL 2.5MG INH SOL UD 3ML (DUONEB) NEB SCH (02:00)
[2022-06-02] MEDS ORDERED: hydrALAZINE 20MG/ML 1ML VIAL (J0360 PER 20MG) IV PRN (02:20)
[2022-06-02] MEDS: INSULIN LISPRO (NovoLOG) PER UNIT SC SCH ×5 (02:47→23:11)
[2022-06-02 04:18] LABS: ABG BASE EXCESS 0.3 (-2.0-2.0); ABG HCO3 24.8 MEQ/L (22.0-26.0); ABG PARTIAL PRESSURE CO2 39.4 mmHg (35.0-45.0); ABG PARTIAL PRESSURE O2 103.4 mmHg (75.0-100.0); ABG STANDARD HCO3 24.8 MEQ/L (22.0-26.0); ABG pH (ARTERIAL) 7.417 UNITS (7.350-7.450)
[2022-06-02 07:13] LABS: BASO % 0.2 % (0.0-1.0); EOS % 0.1 % (0.0-3.0); HEMOGLOBIN 9.2 g/dl (13.5-17.5); LYMPH % 10.1 % (24.0-44.0); MEAN CORPUSCULAR HEMOGLOBIN 29.4 pg (27.0-33.0); MEAN CORPUSCULAR HGB CONC 30.7 g/dl (32.0-36.5); MEAN CORPUSCULAR VOLUME 95.8 fl (80.0-96.0); MONO # 0.3 10^3/uL (0.0-0.8); MONO % 3.1 % (2.0-8.0); NEUTROPHILS # 8.2 10^3/uL (1.5-8.5); NEUTROPHILS % 83.9 % (36.0-66.0); PLATELET COUNT, AUTOMATED 106 10^3/uL (150-450); RED BLOOD COUNT 3.13 10^6/uL (4.30-6.10); WHITE BLOOD COUNT 9.8 10^3/uL (4.0-10.0)
[2022-06-02] MEDS: IPRATROPIUM 0.5MG/ALBUTEROL 2.5MG INH SOL UD 3ML (DUONEB) NEB SCH ×4 (07:33→19:18)
[2022-06-02 07:45] LABS: ALBUMIN 2.3 GM/DL (3.2-5.2); CALCIUM LEVEL 8.5 MG/DL (8.5-10.1); CREATININE FOR GFR 3.01 MG/DL (0.70-1.30); GLOMERULAR FILTRATION RATE 23.2 (>56); PHOSPHORUS LEVEL 2.4 MG/DL (2.5-4.9); POTASSIUM SERUM 3.5 MEQ/L (3.5-5.1)
[2022-06-02] MEDS ORDERED: hydroCHLOROthiazide 12.5 MG CAPSULE PO SCH (09:00)
[2022-06-02] MEDS: cloNIDine 0.2 MG TAB PO SCH ×2 (09:00→20:01)
[2022-06-02] MEDS ORDERED: SODIUM CHLORIDE 0.9% 1000ML IV PRN (09:35)
[2022-06-03] VITALS (11 sets, daily range): BP systolic 104–125; BP diastolic 42–91
[2022-06-03 05:56] LABS: HEMATOCRIT 30.3 % (42.0-52.0); HEMOGLOBIN 9.2 g/dl (13.5-17.5); MEAN CORPUSCULAR HEMOGLOBIN 29.3 pg (27.0-33.0); MEAN CORPUSCULAR HGB CONC 30.4 g/dl (32.0-36.5); MEAN CORPUSCULAR VOLUME 96.5 fl (80.0-96.0); PLATELET COUNT, AUTOMATED 116 10^3/uL (150-450); RED BLOOD COUNT 3.14 10^6/uL (4.30-6.10); WHITE BLOOD COUNT 7.7 10^3/uL (4.0-10.0)
[2022-06-03 06:19] LABS: ALBUMIN 2.2 GM/DL (3.2-5.2); CALCIUM LEVEL 8.8 MG/DL (8.5-10.1); CREATININE FOR GFR 4.23 MG/DL (0.70-1.30); GLOMERULAR FILTRATION RATE 15.7 (>56); PHOSPHORUS LEVEL 2.7 MG/DL (2.5-4.9); POTASSIUM SERUM 3.1 MEQ/L (3.5-5.1)
[2022-06-03] MEDS: INSULIN LISPRO (NovoLOG) PER UNIT SC SCH ×4 (06:33→23:41)
[2022-06-03] MEDS: IPRATROPIUM 0.5MG/ALBUTEROL 2.5MG INH SOL UD 3ML (DUONEB) NEB SCH ×4 (07:20→19:18)
[2022-06-03] MEDS: cloNIDine 0.2 MG TAB PO SCH (08:31)
[2022-06-03] MEDS ORDERED: DARBEPOETIN 100 MCG/0.5 ML *DIALYSIS* SYRINGE (J0882) IV SCH (09:35)
[2022-06-03] MEDS: CARVedilol 6.25 MG TAB PO SCH ×2 (10:27→20:53)
[2022-06-04] VITALS (9 sets, daily range): BP systolic 107–221; BP diastolic 50–95
[2022-06-04 05:12] LABS: HEMATOCRIT 28.8 % (42.0-52.0); HEMOGLOBIN 8.8 g/dl (13.5-17.5); MEAN CORPUSCULAR HEMOGLOBIN 29.5 pg (27.0-33.0); MEAN CORPUSCULAR HGB CONC 30.6 g/dl (32.0-36.5); MEAN CORPUSCULAR VOLUME 96.6 fl (80.0-96.0); PLATELET COUNT, AUTOMATED 105 10^3/uL (150-450); RED BLOOD COUNT 2.98 10^6/uL (4.30-6.10); WHITE BLOOD COUNT 6.2 10^3/uL (4.0-10.0)
[2022-06-04 05:27] LABS: ALBUMIN 2.1 GM/DL (3.2-5.2); CALCIUM LEVEL 8.8 MG/DL (8.5-10.1); CREATININE FOR GFR 5.46 MG/DL (0.70-1.30); GLOMERULAR FILTRATION RATE 11.7 (>56); PHOSPHORUS LEVEL 2.8 MG/DL (2.5-4.9); POTASSIUM SERUM 3.1 MEQ/L (3.5-5.1)
[2022-06-04] MEDS: LEVOTHYROXINE 25MCG TABLET (0.025MG) PO SCH (05:48)
[2022-06-04] MEDS ORDERED: SODIUM CHLORIDE 0.9% 1000ML IV PRN (06:00)
[2022-06-04] MEDS: INSULIN LISPRO (NovoLOG) PER UNIT SC SCH ×3 (06:00→17:44)
[2022-06-04] MEDS: IPRATROPIUM 0.5MG/ALBUTEROL 2.5MG INH SOL UD 3ML (DUONEB) NEB SCH ×4 (07:38→19:15)
[2022-06-04] MEDS ORDERED: APIXABAN 2.5 MG TAB (ELIQUIS) PO SCH (09:00)
[2022-06-04] MEDS ORDERED: POTASSIUM CHLORIDE 10MEQ SR TABLET PO SCH (09:00)
[2022-06-04] MEDS: CARVedilol 6.25 MG TAB PO SCH ×2 (09:00→20:46)
[2022-06-04 14:35] LABS: C REACTIVE PROTEIN QUANTITATIV 6.85 MG/DL (0.00-0.30)
[2022-06-04] MEDS: APIXABAN 2.5 MG TAB (ELIQUIS) PO SCH ×2 (14:45→20:45)
[2022-06-04] MEDS: VANICREAM MOISTURIZING SKIN CREAM 113GM TUBE TOP SCH (20:47)
[2022-06-04] MEDS ORDERED: LEVEMIR (INSULIN DETEMIR) 1 UNITS/0.01ML SC SCH (21:00)
[2022-06-04] MEDS ORDERED: INSULIN LISPRO (NovoLOG) PER UNIT SC SCH (21:00)
[2022-06-05 04:56] LABS: HEMATOCRIT 32.2 % (42.0-52.0); HEMOGLOBIN 9.9 g/dl (13.5-17.5); MEAN CORPUSCULAR HEMOGLOBIN 29.3 pg (27.0-33.0); MEAN CORPUSCULAR HGB CONC 30.7 g/dl (32.0-36.5); MEAN CORPUSCULAR VOLUME 95.3 fl (80.0-96.0); PLATELET COUNT, AUTOMATED 100 10^3/uL (150-450); RED BLOOD COUNT 3.38 10^6/uL (4.30-6.10)
[2022-06-05 05:29] LABS: ALBUMIN 2.2 GM/DL (3.2-5.2); CALCIUM LEVEL 8.7 MG/DL (8.5-10.1); CREATININE FOR GFR 3.73 MG/DL (0.70-1.30); GLOMERULAR FILTRATION RATE 18.1 (>56); PHOSPHORUS LEVEL 2.7 MG/DL (2.5-4.9); POTASSIUM SERUM 3.1 MEQ/L (3.5-5.1)
[2022-06-05] MEDS: LEVOTHYROXINE 25MCG TABLET (0.025MG) PO SCH (05:39)
[2022-06-05 06:00] VITALS: BP 144/63
[2022-06-05] MEDS: IPRATROPIUM 0.5MG/ALBUTEROL 2.5MG INH SOL UD 3ML (DUONEB) NEB SCH ×2 (07:34→11:34)
[2022-06-05] MEDS: INSULIN LISPRO (NovoLOG) PER UNIT SC SCH ×2 (07:45→12:41)
[2022-06-05 07:46] VITALS: BP 151/67
[2022-06-05] MEDS ORDERED: POTASSIUM CHLORIDE 10MEQ SR TABLET PO ONE (08:00)
[2022-06-05] MEDS ORDERED: SIMETHICONE 80MG CHEW TAB PO PRN (08:05)
[2022-06-05] MEDS ORDERED: ACETAMINOPHEN TAB 650MG DOSE (2X325MG) PO PRN (08:10)
[2022-06-05] MEDS ORDERED: ONDANSETRON 4MG 2ML VIAL IV ONE (08:15)
[2022-06-05] MEDS: VANICREAM MOISTURIZING SKIN CREAM 113GM TUBE TOP SCH (08:20)
[2022-06-05] MEDS: CARVedilol 6.25 MG TAB PO SCH (08:50)
[2022-06-05] MEDS: APIXABAN 2.5 MG TAB (ELIQUIS) PO SCH (08:50)
[2022-06-05 08:51] VITALS: BP 151/67
[2022-06-05] MEDS ORDERED: PANTOPRAZOLE 40MG TAB (PROTONIX) PO SCH (09:00)
[2022-06-05] MEDS ORDERED: CARV6.25 PO (11:58)
[2022-06-05] MEDS ORDERED: LISI10TA22 PO (11:58)
[2022-06-05 12:19] LABS: CK-MB VALUE MASS 2.7 NG/ML (<3.6)
[2022-06-05] MEDS ORDERED: CARVedilol 6.25 MG TAB PO SCH (21:00)
[2022-06-06] MEDS ORDERED: SODIUM CHLORIDE 0.9% 1000ML IV PRN (06:00)
== END 2022-06-05 13:06 | DRG 70 ==
LOC: M ED 17:37 → EDBD 17:37 → EEVIPCON 23:04 → M ED INP 23:04 → ENRESERV 06-02 00:11 → M ICU 06-02 01:52
PROVIDERS: ADMIT Internal Medicine; ATTEND Internal Medicine
PROC: 5A09457 Assistance with Respiratory Ventilation, 24-96 Consecutive Hours, Continuous Positive Airway Pressure (ICD-10-PCS; principal; 2022-06-01)
DX: G93.41 Metabolic encephalopathy (principal); N18.6 End stage renal disease; J96.92 Respiratory failure, unspecified with hypercapnia; E87.2 Acidosis; J90 Pleural effusion, not elsewhere classified; I12.0 Hypertensive chronic kidney disease with stage 5 chronic kidney disease or end stage renal disease; N25.81 Secondary hyperparathyroidism of renal origin; E03.9 Hypothyroidism, unspecified; E87.70 Fluid overload, unspecified; Z99.2 Dependence on renal dialysis; D69.6 Thrombocytopenia, unspecified; J45.909 Unspecified asthma, uncomplicated; E11.51 Type 2 diabetes mellitus with diabetic peripheral angiopathy without gangrene; D63.1 Anemia in chronic kidney disease; I48.91 Unspecified atrial fibrillation; K21.9 Gastro-esophageal reflux disease without esophagitis; Z89.611 Acquired absence of right leg above knee; Z79.4 Long term (current) use of insulin; Z79.899 Other long term (current) drug therapy; Z88.6 Allergy status to analgesic agent; Z91.018 Allergy to other foods; I16.0 Hypertensive urgency; Z87.891 Personal history of nicotine dependence